=== PATIENT | male | born 1975 ===

== ENCOUNTER → 2020-06-26 15:00 | Outpatient (BNVA) | payer MEDICARE, MEDICAID, SELFPAY | PROVIDERS: PCP Hospitalist; Referring Provider Internal Medicine Medical Oncology; Visit Provider Internal Medicine | DX: J44.9 Chronic obstructive pulmonary disease, unspecified (principal); J98.4 Other disorders of lung; G47.33 Obstructive sleep apnea (adult) (pediatric); R06.89 Other abnormalities of breathing; E66.01 Morbid (severe) obesity due to excess calories | CPT/HCPCS: 99212 ==

== ENCOUNTER → 2020-07-17 19:36 | Outpatient (REF) | payer MEDICARE, MEDICAID, SELFPAY | LOC: HO.SL 19:36 | PROVIDERS: PCP Internal Medicine Medical Oncology; Visit Provider Internal Medicine | DX: G47.33 Obstructive sleep apnea (adult) (pediatric) (principal) | CPT/HCPCS: 95811 ==

== ENCOUNTER → 2020-07-24 14:19 | Outpatient (BNVA) | payer MEDICARE, MEDICAID, SELFPAY | PROVIDERS: PCP Internal Medicine Medical Oncology; Visit Provider Internal Medicine | DX: J44.9 Chronic obstructive pulmonary disease, unspecified (principal); J98.4 Other disorders of lung; E66.01 Morbid (severe) obesity due to excess calories; G47.33 Obstructive sleep apnea (adult) (pediatric); Z79.899 Other long term (current) drug therapy | CPT/HCPCS: 99212 ==

== ENCOUNTER → 2020-10-19 11:48 | Outpatient (BNVA) | payer MEDICARE, MEDICAID, SELFPAY | PROVIDERS: PCP Hospitalist; Visit Provider Internal Medicine | DX: E66.01 Morbid (severe) obesity due to excess calories (principal); G47.33 Obstructive sleep apnea (adult) (pediatric); J98.4 Other disorders of lung; J44.9 Chronic obstructive pulmonary disease, unspecified | CPT/HCPCS: 99212 ==

== ENCOUNTER → 2021-01-29 14:37 | Outpatient (BNVA) | payer MEDICARE, MEDICAID, SELFPAY | PROVIDERS: PCP Hospitalist; Visit Provider Internal Medicine | DX: J44.9 Chronic obstructive pulmonary disease, unspecified (principal); J98.4 Other disorders of lung; G47.33 Obstructive sleep apnea (adult) (pediatric); E66.01 Morbid (severe) obesity due to excess calories | CPT/HCPCS: 99212 ==

== ENCOUNTER → 2021-05-01 14:19 | Outpatient (BNVA) | payer MEDICARE, MEDICAID, SELFPAY | PROVIDERS: PCP Internal Medicine; Visit Provider Internal Medicine | DX: G47.33 Obstructive sleep apnea (adult) (pediatric) (principal); J44.9 Chronic obstructive pulmonary disease, unspecified; J98.4 Other disorders of lung; E66.01 Morbid (severe) obesity due to excess calories; Z88.8 Allergy status to other drugs, medicaments and biological substances; Z99.89 Dependence on other enabling machines and devices; Z79.4 Long term (current) use of insulin; Z79.899 Other long term (current) drug therapy | CPT/HCPCS: 99212 ==

== ENCOUNTER → 2021-05-16 13:49 | Outpatient (BNVA) | payer MEDICARE, MEDICAID, SELFPAY | PROVIDERS: PCP Internal Medicine; Visit Provider Nurse Practitioner Family | DX: E11.40 Type 2 diabetes mellitus with diabetic neuropathy, unspecified (principal); M19.071 Primary osteoarthritis, right ankle and foot | CPT/HCPCS: 99202 ==

== ENCOUNTER 2021-06-14 05:11 | Outpatient (REF) | payer MEDICARE, MEDICAID, SELFPAY ==
--- NOTE | ~2021-06-14 | XR_ITS ---
EXAMINATION: XR ANKLE, RIGHT CLINICAL INFORMATION: Pain COMPARISON: None TECHNIQUE: AP, lateral, and mortise views of the right ankle. FINDINGS: Significant soft tissue swelling about the ankle. Marked degenerative changes in the ankle joint more so in the tibiotalar joint where there is chronic bony deformity to the talar dome and loss of joint space both superiorly and along the abutting the subtalar joint and fibular articular surface. No acute bony destructive lesions. No fracture or dislocation. Visualized portion of the midfoot unremarkable. XR/XR ankle RT min 3V IMPRESSION: Significant soft tissue swelling about the ankle joint with chronic bony deformity and remodeling of the ankle joint.
== END 2021-06-14 05:12 | disposition home or self-care (01) ==
LOC: HO.HOSX 05:11
PROVIDERS: Visit Provider Physician Assistant
DX: M19.071 Primary osteoarthritis, right ankle and foot (principal)
CPT/HCPCS: 20600; 20605; 73610; 99202; J1100

== ENCOUNTER → 2021-09-13 09:43 | Outpatient (BNVA) | payer MEDICARE, MEDICAID, SELFPAY | PROVIDERS: PCP Internal Medicine; Visit Provider Physician Assistant | DX: M19.071 Primary osteoarthritis, right ankle and foot (principal) | CPT/HCPCS: 20600; 99212; J3300 ==

== ENCOUNTER → 2021-09-19 15:34 | Outpatient (BNVA) | payer MEDICARE, MEDICAID, SELFPAY | PROVIDERS: PCP Internal Medicine; Visit Provider Internal Medicine | DX: G47.33 Obstructive sleep apnea (adult) (pediatric) (principal); J44.9 Chronic obstructive pulmonary disease, unspecified; J98.4 Other disorders of lung; E66.01 Morbid (severe) obesity due to excess calories; Z68.41 Body mass index [BMI] 40.0-44.9, adult | CPT/HCPCS: 99212 ==

== ENCOUNTER → 2021-12-20 09:26 | Outpatient (BNVA) | payer MEDICARE, MEDICAID, SELFPAY | PROVIDERS: PCP Internal Medicine; Visit Provider Physician Assistant | DX: M19.071 Primary osteoarthritis, right ankle and foot (principal) | CPT/HCPCS: 20605; 99212; J1020 ==

== ENCOUNTER → 2022-02-11 13:28 | Outpatient (BNVA) | payer MEDICARE, MEDICAID, SELFPAY | PROVIDERS: PCP Internal Medicine; Visit Provider Internal Medicine | DX: G47.33 Obstructive sleep apnea (adult) (pediatric) (principal); E66.01 Morbid (severe) obesity due to excess calories; J44.9 Chronic obstructive pulmonary disease, unspecified; J98.4 Other disorders of lung | CPT/HCPCS: 99212 ==

== ENCOUNTER 2022-03-21 13:37 | Outpatient (REF) | payer MEDICARE, MEDICAID, SELFPAY ==
--- NOTE | ~2022-03-21 | XR_ITS ---
EXAMINATION: XR ANKLE, LEFT CLINICAL INFORMATION: Pain COMPARISON: None TECHNIQUE: AP, lateral, and mortise views of the left ankle. FINDINGS: Bone alignment is normal. No fracture or dislocation is seen. The ankle mortise is normal. There is a small calcaneal spur at the Achilles tendon insertion. Soft tissues are otherwise normal. XR/XR ankle LT min 3V IMPRESSION: Normal left ankle.
== END 2022-03-21 13:38 | disposition home or self-care (01) ==
LOC: HO.HOSX 13:37
PROVIDERS: Visit Provider Physician Assistant
DX: M19.071 Primary osteoarthritis, right ankle and foot (principal)
CPT/HCPCS: 20605; 73610; 99212; J1020

== ENCOUNTER 2022-05-16 13:41 | Outpatient (REF) | payer MEDICARE, MEDICAID, SELFPAY ==
--- NOTE | ~2022-05-16 | XR_ITS ---
EXAMINATION: XR CHEST CLINICAL INFORMATION: COPD. COMPARISON: None TECHNIQUE: 2 views of the chest were obtained. FINDINGS: No focal airspace consolidation. No pleural effusion or pneumothorax. Unremarkable cardiomediastinal silhouette. There appears to be bony prominence at the right costochondral junctions which could indicate sequela of prior injury. Mild degenerative disc disease throughout the thoracic spine. XR/XR chest 2V IMPRESSION: No acute cardiopulmonary findings. Bony prominence along the right costochondral junctions which could be the sequela of a remote injury.
== END 2022-05-16 13:42 | disposition home or self-care (01) ==
LOC: HO.XRAY 13:41
PROVIDERS: Absent Provider Internal Medicine; PCP Internal Medicine; Visit Provider Physician Assistant
DX: J98.4 Other disorders of lung (principal); J44.9 Chronic obstructive pulmonary disease, unspecified; J40 Bronchitis, not specified as acute or chronic; G47.33 Obstructive sleep apnea (adult) (pediatric); E66.01 Morbid (severe) obesity due to excess calories; M19.072 Primary osteoarthritis, left ankle and foot
CPT/HCPCS: 71046; 99212; J1040

== ENCOUNTER → 2022-06-13 10:42 | Outpatient (BNVA) | payer MEDICARE, MEDICAID, SELFPAY | PROVIDERS: PCP Internal Medicine; Visit Provider Internal Medicine | DX: J44.9 Chronic obstructive pulmonary disease, unspecified (principal); J98.4 Other disorders of lung; G47.33 Obstructive sleep apnea (adult) (pediatric); E66.01 Morbid (severe) obesity due to excess calories | CPT/HCPCS: 99212 ==

== ENCOUNTER → 2022-06-21 09:47 | Outpatient (BNVA) | payer MEDICARE, MEDICAID, SELFPAY | PROVIDERS: PCP Internal Medicine; Visit Provider Physician Assistant | DX: M19.071 Primary osteoarthritis, right ankle and foot (principal) | CPT/HCPCS: 20600; 99212; J1020 ==

== ENCOUNTER → 2022-09-19 12:48 | Outpatient (BNVA) | payer MEDICARE, MEDICAID, SELFPAY | PROVIDERS: PCP Internal Medicine; Visit Provider Physician Assistant | DX: M19.071 Primary osteoarthritis, right ankle and foot (principal); M54.2 Cervicalgia | CPT/HCPCS: 20600; 99212; J1040 ==

== ENCOUNTER 2022-10-15 11:00 | Outpatient (RCR) | payer MEDICARE, MEDICAID, SELFPAY ==
--- NOTE | 2022-09-26 11:53 | MHC.PT.EP ---
[facility] [place] Office [place] Office [place] Office [address] Jimmy Marques [address] [phone] F: [phone] F: [phone] F: [phone] F: [phone] Physical Therapy Plan of Care Date of Evaluation: Date of Surgery: n/a Diagnosis: cervical neck pain Assessment: Patient is a 47 year old male presenting to PT with complaints of pain in his neck. Pt reports onset of pain began about 6-8 months ago due to insidious onset. He presents today with impairments in pain, ROM, posture, UE strength. Pt's current occupation is disable due to T1DM, with baseline physical activities including ADLs, driving. 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 Clinical presentation today is most consistent with signs and sx associated with chronic neck pain and pt will benefit from skilled PT to address the following problems and impairments noted upon evaluation: pain, ROM, posture, UE strength. These problems limit the patient with the following functional activities: ADLs, driving. The prescribed treatment plan of care is medically necessary. Co-morbidities of severe T1DM, diabetic neuropathy, COPD, heart issues from diabetes, HTN were identified and taken into considerations of plan of care. Pt was educated on HEP, role of PT, prognosis, POC. Frequency and Duration: The patient will be seen 2 x week x 4 weeks Short Term Goals: Pt will demonstrate improved UE strength by 1/3 grade in 2 weeks. Pt will demonstrate improved cervical AROM with less reports of tightness in 2 weeks. Pt will demonstrate improved postural awareness by sitting with biomechanically correct posture without cues throughout session to improve overall postural function in 2 weeks. Custodial Goals: Pt will demonstrate improved NDI score by 5% in 4 weeks for improved functional mobility. Pt will demonstrate reports of improved ability to turn his neck when driving in 4 weeks for improved ability to drive. Treatment Plan: Modalities to reduce pain, spasms and effusion. Manual therapy to restore motion and function. Therapeutic exercise to improve strength and flexibility. Neuromuscular re-education for posture and balance. Therapeutic activities to return to functional activities of daily living. Electronically signed by: Luciana Estevez, PT, DPT, ATC Please sign and return to therapist. Thank you for your referral.
--- NOTE | 2022-11-01 08:11 | MHC.PT.DC ---
[facility] [place] Office [place] Office [place] Office [address] [phone] F: [phone] F: [phone] F: [phone] F: [phone] Physical Therapy Discharge Report Diagnosis: cervical neck pain Date of Surgery: n/a Date of Evaluation: 09/26/22 Date of Discharge: 11/01/22 Treatments to Date: 5 Cancellations to Date: 3 No Shows to Date: 0 Discharge Status: Patient Elected to Stop Discharge Summary: Pt called stating he would like to be d/c from skilled PT. Pt d/c per his request. Electronically signed by: Luciana Estevez, PT, DPT, ATC Please sign and return to therapist. Thank you for your referral.
== END 2022-11-01 08:13 | disposition home or self-care (01) ==
LOC: HO.PTCHIC 11:00
PROVIDERS: PCP Internal Medicine; Visit Provider Physician Assistant
DX: M54.2 Cervicalgia (principal)
CPT/HCPCS: 97110; 97163

== ENCOUNTER → 2022-10-21 11:06 | Outpatient (BNVA) | payer MEDICARE, MEDICAID, SELFPAY | PROVIDERS: PCP Internal Medicine; Visit Provider Internal Medicine | DX: G47.33 Obstructive sleep apnea (adult) (pediatric) (principal); J44.9 Chronic obstructive pulmonary disease, unspecified; J98.4 Other disorders of lung; E66.01 Morbid (severe) obesity due to excess calories; Z68.41 Body mass index [BMI] 40.0-44.9, adult; Z99.81 Dependence on supplemental oxygen; Z99.89 Dependence on other enabling machines and devices; Z79.4 Long term (current) use of insulin; Z79.899 Other long term (current) drug therapy | CPT/HCPCS: 99212 ==

== ENCOUNTER → 2022-11-28 13:31 | Outpatient (BNVA) | payer MEDICARE, MEDICAID, SELFPAY | PROVIDERS: PCP Internal Medicine; Visit Provider Physician Assistant | DX: M19.071 Primary osteoarthritis, right ankle and foot (principal); M19.072 Primary osteoarthritis, left ankle and foot | CPT/HCPCS: 20605; 99212; J1040 ==

== ENCOUNTER 2022-12-27 09:00 | Outpatient (RCR) | payer MEDICARE, MEDICAID, SELFPAY ==
--- NOTE | 2022-12-23 16:58 | MHC.PT.EP ---
[facility] [place] [facility] [place] Office [place] Office [address] Jimmy Marques [address] [phone] F: [phone] F: [phone] F: [phone] F: [phone] Physical Therapy Plan of Care Date of Evaluation: Date of Surgery: Diagnosis: OA left and right ankles Assessment: Patient is a 47 y.o. male with co-morbidities of DMT1, HTN, COPD, asthma who is referred to PT by BOGDAN Yung, with Dx of RIGHT ankle OA and LEFT ankle OA. His ankle/foot symptoms are complicated by diabetic neuropathy. Patient impairments include decreased sensation/proprioception in feet, poor balance, limited ROM, and weakness. Patient current functional limitations are difficulty standing, ambulating, bend/squat, walking outdoors, ascend/descend stairs. Patient will benefit from skilled PT to address aforementioned impairments and functional limitations to meet established goals. Frequency and Duration: The patient will be seen 2x/week for 4 weeks Short Term Goals: 2 weeks Patient demonstrates consistency and independence with HEP to self manage symptoms. Usp Goals: 4 weeks Patient presents with increased R ankle eversion 4+/5 to improve ankle stability walking outdoors. Patient presents with increased R ankle DF -5 degrees to normalize gait pattern. Treatment Plan: Modalities to reduce pain, spasms and effusion. Manual therapy to restore motion and function. Therapeutic exercise to improve strength and flexibility. Neuromuscular re-education for posture and balance. Therapeutic activities to return to functional activities of daily living. Electronically signed by: Daryl Pruitt, PT, DPT Please sign and return to therapist. Thank you for your referral.
--- NOTE | 2023-02-13 18:00 | MHC.PT.DC ---
[facility] [place] Office [place] Office [place] Office [address] Jimmy Marques [address] [phone] F: [phone] F: [phone] F: [phone] F: [phone] Physical Therapy Discharge Report Diagnosis: OA left and right ankles Date of Surgery: Date of Evaluation: 12/23/22 Date of Discharge: Treatments to Date: 2 Cancellations to Date: 4 No Shows to Date: Discharge Status: Patient Elected to Stop Discharge Summary: Patient was only seen for a PT evaluation and one treament. He cancelled a couple sessions due to dificulty with his diabetes management. He then called and requestied discontinuation of PT stating, My ankle is too far gone for therapy. Therefore, he is discharged at this time. Electronically signed by: Daryl Pruitt, PT, DPT Please sign and return to therapist. Thank you for your referral.
== END 2023-02-13 18:01 | disposition home or self-care (01) ==
LOC: HO.PT 09:00
PROVIDERS: PCP Internal Medicine; Visit Provider Physician Assistant
DX: M19.071 Primary osteoarthritis, right ankle and foot (principal); M19.072 Primary osteoarthritis, left ankle and foot
CPT/HCPCS: 97110; 97162

== ENCOUNTER → 2023-02-27 13:16 | Outpatient (BNVA) | payer MEDICARE, MEDICAID, SELFPAY | PROVIDERS: Visit Provider Physician Assistant | DX: M19.071 Primary osteoarthritis, right ankle and foot (principal); M19.072 Primary osteoarthritis, left ankle and foot | CPT/HCPCS: 20600; 20605; 99212; J1040 ==

== ENCOUNTER 2023-04-14 11:05 | Outpatient (AMB) | payer MEDICARE, MEDICAID, SELFPAY ==
[2023-04-14 11:11] VITALS: BP 136/78; PULSE 64; O2SAT 99; BMI 40.2
--- NOTE | 2023-04-14 11:11 | MHC.OFFVIS ---
Intake Vital Signs 04/14/23 11:11 Height 6 ft Weight 296 lb 8.348 oz BMI 40.2 BP 136/78 Blood Pressure Location Lt brachial Position Sitting Pulse 64 Pulse Source Pulse Oximeter Pulse Oximetry (%) 99 Oxygen Delivery Method Room Air Intake Visit Reasons: Obstructive sleep apnea Allergies codeine Allergy (Unknown, Verified 04/14/23 11:30) itching ibuprofen [IBUPROFEN] Allergy (Unknown, Verified 04/14/23 11:30) HIVES ketorolac Allergy (Unknown, Verified 04/14/23 11:30) swelling sumatriptan [From IMITREX] Allergy (Unknown, Verified 04/14/23 11:30) TACHYCARDIA bupropion [From Wellbutrin] Adverse Reaction (Severe, Verified 04/14/23 11:30) suicide thoughts prochlorperazine [From Compazine] Adverse Reaction (Unknown, Verified 04/14/23 11:30) Unknown Medication List - Last Reconciled 04/14/23 by Amish Smith MD amlodipine 10 mg PO DAILY [Ankle support brace As directed] Arnuity Ellipta 100 mcg/actuation (fluticasone furoate) 1 inh PO DAILY NS celecoxib 200 mg PO BID erythromycin 0 mg PO ferrous sulfate 325 mg PO DAILY flu vac qs 2019(4 yr up)CD(PF) mL IM furosemide 20 mg PO DAILY insulin lispro 1 sliding scale dose subcut USEASDIRECTD insulin lispro (Humalog KwikPen U-200 Insulin) subcut insulin syringe-needle U-100 As directed ipratropium-albuterol 0.5 mg-3 mg(2.5 mg base)/3 mL 3 mL inhalation QID 30 days lisinopril 40 mg PO DAILY omeprazole 40 mg PO BID pregabalin 150 mg PO TID rosuvastatin 40 mg PO DAILY Ventolin HFA 90 mcg/actuation (albuterol sulfate) 2 puffs inhalation Q4-6H PRN NS Do you need a note to return to daycare/school/sports/work: No HPI Obstructive sleep apnea HPI Details 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 HE USES NASAL AIR , IT IRRITATES THE SKIN OFF AND ON. HE IS A MOUTH BREATHER BUT CANNOT USE THE CHINSTRAP, ALSO HE CANNOT USE FULL FACE MASK DUE TO FEELING OF CLAUSTROPHOBIA. UNDER THE CIRCUMSTANCES HE IS DOING HIS BEST AND USES THE BIPAP EVERY NIGHT FOR AT LEAST 6 HOURS. HE DOES GET GOOD SLEEP. HE IS HOPING THAT 1 DAY HE WILL COME OFF THE BIPAP, HAS BEEN LOSING WEIGHT, SUCCESSFULLY BUT STILL IS IN RANGE OF MORBID OBESITY. BREATHING HAS BEEN OKAY WITHOUT ANY ACUTE EPISODES OF COUGH OR WHEEZING. CONTINUES TO USE ARNUITY ELLIPTA 1 INHALATION DAILY, AND HAS TO USE THE RESCUE INHALER( VENTOLIN ) ONLY ONCE IN A WHILE [facility] Medical History Bronchitis COPD (chronic obstructive pulmonary disease) Morbid obesity SABRINA (obstructive sleep apnea) Restrictive lung disease Social History Household Members: Significant Other Housing: House Alcohol intake: never Patient Tobacco Use Status: Never used Tobacco Current occupational status: disabled Current occupation: Lt handed Review of Systems Const All systems reviewed & are unremarkable except as noted in HPI and below Eyes Reports no additional complaints ENT Reports no additional complaints Card Denies chest pain, Denies irregular heart rhythm and Denies leg edema Resp Reports as per HPI GI Reports no additional complaints Reports no additional complaints Musc Reports back pain and Reports muscle weakness Skin/Breast Reports system reviewed and no additional complaints, except as documented Neuro Reports Neuro-related abnormal movements and Reports other (Case of posttraumatic paraparesis) Psych Reports no additional complaints Endo Reports other (Diabetes mellitus with labile blood sugars) Physical Exam Vital Signs: Last Vital Signs Pulse 64 04/14/23 11:11 BP 136/78 04/14/23 11:11 Pulse Ox 99 04/14/23 11:11 Oxygen Delivery Method Room Air 04/14/23 11:11 BMI result Body Mass Index 40.2 Const General: comfortable, no acute distress, alert and awake Orientation/consciousness: patient oriented x3 HEENT Head: Yes normal to inspection General nose exam: No nasal polyps present and No nasal discharge present Face and sinus: Yes sinuses nontender Mouth: oropharynx abnormals (Very crowded, Mallampati class 4) Throat: Yes posterior oropharynx normal Eyes General: appearance normal, both eyes and all related structures Neck Neck: Yes normal visual inspection, Yes no lymphadenopathy, Yes trachea midline, Yes no JVD and Yes other (Short and obese) Thyroid: Thyroid normal Chest Chest palpation & inspection: normal inspection of the chest, normal palpation of entire chest wall and no tenderness Resp Other: Percussion note resonant, breath sounds are distant and especially decreased over the bibasilar areas. No wheezes, rhonchi or crepitations are heard today. He has a relatively small lung volumes but both lungs are clear. Cardio Palpation: normal PMI Rate: regular rate Rhythm: regular rhythm Heart sounds: no gallops and no murmurs GI Palpation (GI): Soft to palpation, nontender, No hepatosplenomegaly present, no masses and Other GI palpation findings present (Abdomen is quite obese and protuberant) Auscultation: normal bowel sounds Back/Spine/Pelvis Thoracic/Lumbar Spine: thoracic and lumbar spine normal to inspection Skin General skin exam: no rashes or lesions noted Neuro General: patient oriented x3, No gait normal (Not able to walk,he uses quad cane in the house,motorized chair for outdoor) and no focal motor deficits Cranial nerves: Yes CN's II-XII intact bilaterally Extrem General: Yes normal to inspection, Yes no calf tenderness and Yes edema (Mild dependent edema of the legs) Psych Appearance: grossly normal and well kempt Speech and movement: Normal speech and movement present Results Reviewed Results Reviewed: COMPLIANCE DATA IS NOT AVAILABLE, WE GO BY HIS STATEMENT AND HE DOES USE IT EVERY NIGHT FOR AT LEAST 6 HOURS. Assessment & Plan Assessment & Plan (1) Morbid obesity: Comment: PATIENT IS WELL AWARE OF THIS PROBLEM . HE IS TRYING TO LOSE WEIGHT ON HIS OWN AND HAS LOST MORE WEIGHT SINCE THE LAST VISIT. HE IS QUITE DETERMINED TO KEEP ON CONTROLLING HIS DIET AND WALK DAILY . Code(s): E66.01 - Morbid (severe) obesity due to excess calories (2) Restrictive lung disease: Comment: SECONDARY TO MORBID OBESITY, ADVISED TO DO DEEP BREATHING EXERCISES AT LEAST 3 TIMES A DAY Code(s): J98.4 - Other disorders of lung (3) SABRINA (obstructive sleep apnea): Comment: KNOWN CASE OF SEVERE SABRINA . NEEDS BILEVEL SETTING ( BIPAP ) WITH PRESSURES OF 25/17 CMS, USING NASAL PILLOWS. HAS HIS OWN BIPAP MACHINE ( Ana Paula ) CLAIMS THAT HE IS USING HIS BIPAP FOR 5-6 HOURS PER NIGHT. COMPLIANCE ANALYSIS NOT AVAILABLE BUT HE CLAIMS TO BE FULLY COMPLIANT. HIS CURRENT SUPPLIER IS SALIMA MAY USE LORAZEPAM 0.5 MG AT BEDTIMEIF NEEDED BECAUSE OF HIS COMPLAINT OF DRYNESS OF THE MOUTH . HE IS ADVISED TO USE HUMIDIFICATION REGULARLY. * HE WILL BRING HIS BIPAP MACHINE HERE TO THE OFFICE 1 DAY IT SO THAT WE CAN CHECK IT OVER. Code(s): G47.33 - Obstructive sleep apnea (adult) (pediatric) (4) COPD (chronic obstructive pulmonary disease): Comment: ASTHMA/COPD ,STABLE TX : CONT. TO USE : ARNUITY , INHALOR , ONE INH DAILY . DUONEB USs QID ONLY PRN Code(s): J44.9 - Chronic obstructive pulmonary disease, unspecified Coding Level of Care Code Est Pt Level 4 (70435) Diagnoses Morbid obesity E66.01 Restrictive lung disease J98.4 SABRINA (obstructive sleep apnea) G47.33 COPD (chronic obstructive pulmonary disease) J44.9
== END 2023-04-14 11:43 | disposition home or self-care (01) ==
PROVIDERS: PCP Internal Medicine; Visit Provider Internal Medicine
DX: E66.01 Morbid (severe) obesity due to excess calories (principal); J98.4 Other disorders of lung; G47.33 Obstructive sleep apnea (adult) (pediatric); J44.9 Chronic obstructive pulmonary disease, unspecified
CPT/HCPCS: 99214

== ENCOUNTER → 2023-04-14 11:05 | Outpatient (BNVA) | payer MEDICARE, MEDICAID, SELFPAY | PROVIDERS: PCP Internal Medicine; Visit Provider Internal Medicine | DX: G47.33 Obstructive sleep apnea (adult) (pediatric) (principal); J98.4 Other disorders of lung; J44.9 Chronic obstructive pulmonary disease, unspecified; E66.01 Morbid (severe) obesity due to excess calories; Z68.41 Body mass index [BMI] 40.0-44.9, adult; Z99.89 Dependence on other enabling machines and devices | CPT/HCPCS: 99212 ==

== ENCOUNTER 2023-06-05 13:48 | Outpatient (AMB) | payer MEDICARE, MEDICAID, SELFPAY ==
--- NOTE | 2023-06-05 13:53 | MHC.OFFVIS ---
Intake Vital Signs 06/05/23 13:54 Height 6 ft Weight 296 lb BMI 40.1 Intake Visit Reasons: OV-right ankle injection-last 02/27/23 Intake Note: Shubham a 47 year old male presents today for a follow up of right ankle, last injection 02/27/23. Patient reports last injection helped until recently and is her to repeat injection. Allergies codeine Allergy (Unknown, Verified 06/05/23 13:56) itching ibuprofen [IBUPROFEN] Allergy (Unknown, Verified 06/05/23 13:56) HIVES ketorolac Allergy (Unknown, Verified 06/05/23 13:56) swelling sumatriptan [From IMITREX] Allergy (Unknown, Verified 06/05/23 13:56) TACHYCARDIA bupropion [From Wellbutrin] Adverse Reaction (Severe, Verified 06/05/23 13:56) suicide thoughts prochlorperazine [From Compazine] Adverse Reaction (Unknown, Verified 06/05/23 13:56) Unknown HPI OV-right ankle injection-last 02/27/23 HPI Details 47-year-old male who returns to the office today for a follow-up of right ankle pain. He states he has pain in his ankle but is doing well otherwise. He had his last injection on 02/27/23 which provided him relief until recently. He would like to repeat the injection. [facility] Medical History Bronchitis COPD (chronic obstructive pulmonary disease) Morbid obesity SABRINA (obstructive sleep apnea) Restrictive lung disease Social History Household Members: Significant Other Housing: House Alcohol intake: never Patient Tobacco Use Status: Never used Tobacco Current occupational status: disabled Current occupation: Lt handed Review of Systems Const All systems reviewed & are unremarkable except as noted in HPI and below Physical Exam Vital Signs: BMI result Body Mass Index 40.1 Extrem Other: Right ankle normal to inspection.? Significant tenderness over the medial and lateral joint of the ankle No tenderness over the syndesmosis. No significant swelling. No ankle instability. NVI .? Limited range of motion Office Procedures Joint Injection/Drain Joint Injection/Drain Primary Site: right ankle Prep: site was prepped using aseptic technique, ethochloride spray was applied and injection warnings given Injected: 80 mg of, DepoMedrol, with 1 mL of and 1% plain lidocaine Approach Used: anterolateral Procedure: The patient tolerated the procedure well and there was some relief with the local anesthesia Coding - Small Joint Procedure code (CPT) selection complete Results Reviewed Results Reviewed: 06/05/23 13:57 Lidocaine HCl 1 % [Xylocaine 1 %] 2 ml .ROUTE .STK-MED ONE methylPREDNISolone acetate [DEPO-MedroL] 40 mg .ROUTE .STK-MED ONE 06/05/23 13:59 methylPREDNISolone acetate [DEPO-MedroL] 80 mg .ROUTE .STK-MED ONE Assessment & Plan Assessment & Plan (1) Arthritis of right ankle: Code(s): M19.071 - Primary osteoarthritis, right ankle and foot (2) Osteoarthritis of left ankle: Code(s): M19.072 - Primary osteoarthritis, left ankle and foot Plan We discussed options today which include steroid injection. They did consent to move forward with the injection, which was tolerated well. I recommended rest, ice and elevation and OTC anti-inflammatories PRN for discomfort. We also discussed their diabetes and the effect the steroid can have on their blood glucose levels; therefore, they will continue to monitor these very closely over the next 72 hours. If there are any concerns, they should report to the ED immediately. Patient Instructions: Scribed for Frederick Urbina PA-C, by Alejo Huynh medical assistant per diem, on 06/05/2023 at 1:45 PM EST. Frederick Hernandes PA-C, have personally reviewed and agree with the information entered by the scribe. Coding Level of Care Code Est Pt Level 3 (69116) Diagnoses Arthritis of right ankle M19.071 Osteoarthritis of left ankle M19.072 CPT Codes Coding - - Small joint: 23788 - Small Joint ([id number])
[2023-06-05 13:54] VITALS: BMI 40.1
== END 2023-06-05 15:21 | disposition home or self-care (01) ==
PROVIDERS: PCP Internal Medicine; Visit Provider Physician Assistant
DX: M19.071 Primary osteoarthritis, right ankle and foot (principal); M19.072 Primary osteoarthritis, left ankle and foot
CPT/HCPCS: 20605; 99213

== ENCOUNTER → 2023-06-05 13:48 | Outpatient (BNVA) | payer MEDICARE, MEDICAID, SELFPAY | PROVIDERS: PCP Internal Medicine; Visit Provider Physician Assistant | DX: M19.071 Primary osteoarthritis, right ankle and foot (principal); M19.072 Primary osteoarthritis, left ankle and foot | CPT/HCPCS: 20605; 99212; J1020; J1040 ==

== ENCOUNTER 2023-09-08 12:14 | Outpatient (AMB) | payer MEDICARE, MEDICAID, SELFPAY ==
[2023-09-08 12:32] VITALS: BMI 40.1
--- NOTE | 2023-09-08 12:32 | A.OFFVIS_ITS ---
Intake Vital Signs 09/08/23 12:32 Height 6 ft Weight 296 lb BMI 40.1 Intake Visit Reasons: ov- RT ankle, last inj 02/27/23 Intake Note: Shubham a 47 year old male presents today for a follow up of right ankle, last injection 06/05/23. Patient reports last injection provided him with relief and is requesting to repeat injection. Allergies codeine Allergy (Unknown, Verified 09/08/23 12:39) itching ibuprofen [IBUPROFEN] Allergy (Unknown, Verified 09/08/23 12:39) HIVES ketorolac Allergy (Unknown, Verified 09/08/23 12:39) swelling sumatriptan [From IMITREX] Allergy (Unknown, Verified 09/08/23 12:39) TACHYCARDIA bupropion [From Wellbutrin] Adverse Reaction (Severe, Verified 09/08/23 12:39) suicide thoughts prochlorperazine [From Compazine] Adverse Reaction (Unknown, Verified 09/08/23 12:39) Unknown HPI ov- RT ankle, last inj 02/27/23 HPI Details 47-year-old male who returns to the [facility] today for a follow-up of right ankle pain. He has his last injection on 02/27/23 which provided him relief. He would like to repeat the injection. [facility] Medical History Bronchitis COPD (chronic obstructive pulmonary disease) Morbid obesity SABRINA (obstructive sleep apnea) Restrictive lung disease Social History Household Members: Significant Other Housing: House Alcohol intake: never Patient Tobacco Use Status: Never used Tobacco Current occupational status: disabled Current occupation: Lt handed Review of Systems Const All systems reviewed & are unremarkable except as noted in HPI and below Physical Exam Vital Signs: BMI result Body Mass Index 40.1 Extrem Other: Right ankle normal to inspection.? Significant tenderness over the medial and lateral joint of the ankle No tenderness over the syndesmosis. No significant swelling. No ankle instability. NVI .? Limited range of motion Office Procedures Joint Injection/Drain Joint Injection/Drain Primary Site: right ankle Prep: site was prepped using aseptic technique, ethochloride spray was applied and injection warnings given Injected: 80 mg of, DepoMedrol, with 1 mL of (2ml), 1% plain lidocaine and in the joint Approach Used: anterolateral Procedure: The patient tolerated the procedure well and there was some relief w ith the local anesthesia Coding - Small Joint Procedure code (CPT) selection complete Assessment & Plan Assessment & Plan (1) Arthritis of right ankle: Code(s): M19.071 - Primary osteoarthritis, right ankle and foot Plan We discussed options today which include steroid injection. They did consent to move forward with the right ankle injection, which was tolerated well. I recommended rest, ice and elevation and OTC anti-inflammatories PRN for discomfort. We also discussed their diabetes and the effect the steroid can have on their blood glucose levels; therefore, they will continue to monitor these very closely over the next 72 hours. If there are any concerns, they should report to the ED immediately. Patient Instructions: Scribed for Frederick Urbina PA-C, by Alejo Huynh medical information officer, on 09/08/2023 at 12:30 PM EST. I, Frederick Urbina PA-C, have personally reviewed and agree with the information entered by the scribe. Coding Level of Care Code Est Pt Level 3 (89054) Diagnoses Arthritis of right ankle M19.071 CPT Codes Coding - - Small joint: 57824 - Small Joint ([id number])
== END 2023-09-08 13:04 | disposition home or self-care (01) ==
PROVIDERS: PCP Internal Medicine; Visit Provider Physician Assistant
DX: M19.071 Primary osteoarthritis, right ankle and foot (principal)
CPT/HCPCS: 20605; 99213

== ENCOUNTER → 2023-09-08 12:14 | Outpatient (BNVA) | payer MEDICARE, MEDICAID, SELFPAY | PROVIDERS: PCP Internal Medicine; Visit Provider Physician Assistant | DX: M19.071 Primary osteoarthritis, right ankle and foot (principal) | CPT/HCPCS: 20605; 99212; J1040 ==

== ENCOUNTER 2023-09-09 16:17 | Outpatient (REF) | payer MEDICARE, MEDICAID, SELFPAY ==
--- NOTE | ~2023-09-09 | XR_ITS ---
EXAMINATION: XR CHEST CLINICAL INFORMATION: Bronchitis COMPARISON: 05/16/2022 TECHNIQUE: 2 views of the chest were obtained. FINDINGS: Heart and mediastinum within normal limits. No vascular congestion, consolidations or effusions. Unchanged appearance of healed displaced right posterior rib fractures with bridging calcifications and bilateral costochondral bony prominence, right greater than left. Degenerative changes thoracic spine. XR/XR chest 2V IMPRESSION: Stable chest. No acute cardiopulmonary disease.
[2023-09-09 16:26] LABS: MANUAL DIFF FLAG NO
[2023-09-09 16:53] LABS: Basophils Percent Auto 0.1 % (0-2); Hematocrit 42.1 % (42.0-52.0); Hemoglobin 14.2 g/dl (14.0-18.0); Imm Gran Abs Auto 0.08 X10*3/uL (0.00-0.03); Imm Gran Pct Auto 0.5 % (0.0-0.4); Lymphocytes Absolute Auto 1.9 X10*3/uL (1.2-4.9); Lymphocytes Percent Auto 12.8 % (20-40); Mean Corpuscular HGB Conc 33.7 g/dl (31.0-36.0); Mean Corpuscular Hemoglobin 30.6 pg (27.0-33.0); Mean Corpuscular Volume 90.7 fL (80.0-98.0); Mean Platelet Volume 9.4 fL (9.4-12.4); Monocytes Percent Auto 6.9 % (2-11); Neutrophils Absolute Auto 11.7 x10*3/uL (2.0-8.3); Neutrophils Percent Auto 79.7 % (45-73); Platelet Count 284 X10*3/uL (160-400); Red Blood Count 4.64 X10*6/uL (4.60-5.80); Red Cell Distribution Width 12.4 % (11.0-16.0); White Blood Count 14.7 X10*3/uL (4.8-10.8)
== END 2023-09-09 16:18 | disposition home or self-care (01) ==
LOC: HO.XRAY 16:17
PROVIDERS: PCP Internal Medicine; Visit Provider Internal Medicine
DX: J40 Bronchitis, not specified as acute or chronic (principal); J44.9 Chronic obstructive pulmonary disease, unspecified
CPT/HCPCS: 36415; 71046; 85025

== ENCOUNTER 2023-09-18 13:53 | Outpatient (AMB) | payer MEDICARE, MEDICAID, SELFPAY ==
[2023-09-18 13:59] VITALS: BP 120/70; PULSE 77; O2SAT 100; BMI 38.2
--- NOTE | 2023-09-18 13:59 | MHC.OFFVIS ---
Intake Vital Signs 09/18/23 13:59 Height 6 ft Weight 282 lb BMI 38.2 BP 120/70 Blood Pressure Location Lt brachial Position Sitting Pulse 77 Pulse Source Pulse Oximeter Pulse Oximetry (%) 100 Oxygen Delivery Method Room Air Intake Visit Reasons: Sick visit (adolescent/adult) Intake Note: pt is here for sick visit, and states his breathing is not good, so much phlegm this am, very green in color. 4 pills of doxy left, he cannot sit in recliner to sleep and use is bi-pap due to him opening his mouth when lying down. 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 Allergies codeine Allergy (Unknown, Verified 09/18/23 14:26) itching ibuprofen [IBUPROFEN] Allergy (Unknown, Verified 09/18/23 14:26) HIVES ketorolac Allergy (Unknown, Verified 09/18/23 14:26) swelling sumatriptan [From IMITREX] Allergy (Unknown, Verified 09/18/23 14:26) TACHYCARDIA bupropion [From Wellbutrin] Adverse Reaction (Severe, Verified 09/18/23 14:26) suicide thoughts prochlorperazine [From Compazine] Adverse Reaction (Unknown, Verified 09/18/23 14:26) Unknown Medication List - Last Reconciled 09/18/23 by Amish Smith MD albuterol sulfate 90 mcg/actuation 2 puffs inhalation Q4-6H PRN amlodipine 10 mg PO DAILY [Ankle support brace As directed] Arnuity Ellipta 100 mcg/actuation (fluticasone furoate) 1 inh PO DAILY NS azithromycin 500 mg PO DAILY 5 days celecoxib 200 mg PO BID doxycycline hyclate 100 mg PO BID 10 days erythromycin 0 mg PO ferrous sulfate 325 mg PO DAILY flu vac qs 2019(4 yr up)CD(PF) mL IM furosemide 20 mg PO DAILY insulin lispro 1 sliding scale dose subcut USEASDIRECTD insulin lispro (Humalog KwikPen U-200 Insulin) subcut insulin syringe-needle U-100 As directed ipratropium-albuterol 0.5 mg-3 mg(2.5 mg base)/3 mL 3 mL inhalation QID 30 days lisinopril 40 mg PO DAILY omeprazole 40 mg PO BID pregabalin 150 mg PO TID rosuvastatin 40 mg PO DAILY Do you need a note to return to daycare/school/sports/work: No PFSH Medical History Bronchitis COPD (chronic obstructive pulmonary disease) Restrictive lung disease SABRINA (obstructive sleep apnea) Morbid obesity Social History Household Members: Significant Other Housing: House Alcohol intake: never Patient Tobacco Use Status: Never used Tobacco Current occupational status: disabled Current occupation: Lt handed Physical Exam Vital Signs: Last Vital Signs Pulse 77 09/18/23 13:59 BP 120/70 09/18/23 13:59 Pulse Ox 100 09/18/23 13:59 Oxygen Delivery Method Room Air 09/18/23 13:59 BMI result Body Mass Index 38.2 Assessment & Plan Assessment & Plan Orders: Orders Sputum Cult + Gram stain 09/18/23 J40 - Bronchitis, not specified as acute or chronic, J44.9 - Chronic obstructive pulmonary disease, unspecified Coding
--- NOTE | 2023-09-18 14:01 | A.OFFVIS_ITS ---
Intake Vital Signs 09/18/23 13:59 Height 6 ft Weight 282 lb BMI 38.2 BP 120/70 Blood Pressure Location Lt brachial Position Sitting Pulse 77 Pulse Source Pulse Oximeter Pulse Oximetry (%) 100 Oxygen Delivery Method Room Air Intake Visit Reasons: Sick visit (adolescent/adult) Allergies codeine Allergy (Unknown, Verified 09/18/23 14:26) itching ibuprofen [IBUPROFEN] Allergy (Unknown, Verified 09/18/23 14:26) HIVES ketorolac Allergy (Unknown, Verified 09/18/23 14:26) swelling sumatriptan [From IMITREX] Allergy (Unknown, Verified 09/18/23 14:26) TACHYCARDIA bupropion [From Wellbutrin] Adverse Reaction (Severe, Verified 09/18/23 14:26) suicide thoughts prochlorperazine [From Compazine] Adverse Reaction (Unknown, Verified 09/18/23 14:26) Unknown Medication List - Last Reconciled 09/18/23 by Amish Smith MD albuterol sulfate 90 mcg/actuation 2 puffs inhalation Q4-6H PRN amlodipine 10 mg PO DAILY [Ankle support brace As directed] Arnuity Ellipta 100 mcg/actuation (fluticasone furoate) 1 inh PO DAILY NS azithromycin 500 mg PO DAILY 5 days celecoxib 200 mg PO BID doxycycline hyclate 100 mg PO BID 10 days erythromycin 0 mg PO ferrous sulfate 325 mg PO DAILY flu vac qs 2019(4 yr up)CD(PF) mL IM furosemide 20 mg PO DAILY insulin lispro 1 sliding scale dose subcut USEASDIRECTD insulin lispro (Humalog KwikPen U-200 Insulin) subcut insulin syringe-needle U-100 As directed ipratropium-albuterol 0.5 mg-3 mg(2.5 mg base)/3 mL 3 mL inhalation QID 30 days lisinopril 40 mg PO DAILY omeprazole 40 mg PO BID pregabalin 150 mg PO TID rosuvastatin 40 mg PO DAILY Do you need a note to return to daycare/school/sports/work: No HPI Sick visit (adolescent/adult) HPI Details Shubham is 48 years old very pleasant gentleman, a case of chronic bronchial asthma/COPD. He is using Arnuity Ellipta 1 inhalation daily, DuoNeb updraft 3 times a day. Since about 2 weeks he is having symptoms of acute bronchitis, and exacerbation of COPD. He was initially treated with a course of prednisone for 7 days, When he called on telephone that he was having very frequent cough especially in the morning and was expectorates eating greenish to yellow phlegm, he was treated empirically with doxycycline 100 b.i.d.. This gentleman is on erythromycin 500 mg 3 to 4 times a day for gastroparesis for many years. He denies fever or. Chills or any chest pain Chest x-ray on was negative for any pneumonia. HE HAS BEEN CALLING US IN THE LAST 2 DAYS THAT HE IS WORRIED ABOUT LOT OF EXPECTORATION IN THE MORNING WITH GREENISH PHLEGM. SO WAS ADVISED TO COME IN FOR A CHECKUP. [facility] Medical History Bronchitis COPD (chronic obstructive pulmonary disease) Restrictive lung disease SABRINA (obstructive sleep apnea) Morbid obesity Social History Household Members: Significant Other Housing: House Alcohol intake: never Patient Tobacco Use Status: Never used Tobacco Current occupational status: disabled Current occupation: Lt handed Review of Systems Const All systems reviewed & are unremarkable except as noted in HPI and below Eyes Reports no additional complaints ENT Reports no additional complaints Card Denies chest pain, Denies irregular heart rhythm and Denies leg edema Resp Reports as per HPI GI Reports no additional complaints Reports no additional complaints Musc Reports back pain and Reports muscle weakness Skin/Breast Reports system reviewed and no additional complaints, except as documented Neuro Reports Neuro-related abnormal movements and Reports other (Case of posttraum atic paraparesis) Psych Reports no additional complaints Endo Reports other (Diabetes mellitus with labile blood sugars) Physical Exam Const General: comfortable, no acute distress, alert and awake Orientation/consciousness: patient oriented x3 HEENT Head: Yes normal to inspection General nose exam: No nasal polyps present and No nasal discharge present Face and sinus: Yes sinuses nontender Mouth: oropharynx abnormals (Very crowded, Mallampati class 4) Throat: Yes posterior oropharynx normal Eyes General: appearance normal, both eyes and all related structures Neck Neck: Yes normal visual inspection, Yes no lymphadenopathy, Yes trachea midline, Yes no JVD and Yes other (Short and obese) Thyroid: Thyroid normal Chest Chest palpation & inspection: normal inspection of the chest, normal palpation of entire chest wall and no tenderness Resp Other: Percussion note resonant, breath sounds are distant and especially decreased over the bibasilar areas. No wheezes, rhonchi or crepitations are heard today. He has a relatively small lung volumes but both lungs are clear. Cardio Palpation: normal PMI Rate: regular rate Rhythm: regular rhythm Heart sounds: no gallops and no murmurs GI Palpation (GI): Soft to palpation, nontender, No hepatosplenomegaly present, no masses and Other GI palpation findings present (Abdomen is quite obese and protuberant) Auscultation: normal bowel sounds Back/Spine/Pelvis Thoracic/Lumbar Spine: thoracic and lumbar spine normal to inspection Skin General skin exam: no rashes or lesions noted Neuro General: patient oriented x3, No gait normal (Not able to walk,he uses quad cane in the house,motorized chair for outdoor) and no focal motor deficits Cranial nerves: Yes CN's II-XII intact bilaterally Extrem General: Yes normal to inspection, Yes no calf tenderness and Yes edema (Mild dependent edema of the legs) Psych Appearance: grossly normal and well kempt Speech and movement: Normal speech and movement present Assessment & Plan Assessment & Plan (1) Bronchitis: Comment: At present he has symptoms of acute bronchitis/ upper respiratory infection, nonspecific. Chest x-ray was negative . Still having extra amount of cough and expectoration of greenish phlegm in the mornings. Code(s): J40 - Bronchitis, not specified as acute or chronic Plan: Advised to DC using doxycycline as of now. Will get a sputum Gram stain and culture 4 days later. Then decide if he needs an other antibiotic are not. In the meantime I have reassured him and advised him not to worry about the greenish phlegm. (2) COPD (chronic obstructive pulmonary disease): Comment: ASTHMA/COPD ,STABLE Code(s): J44.9 - Chronic obstructive pulmonary disease, unspecified Plan: TX : CONT. TO USE : ARNUITY , INHALOR , ONE INH DAILY . DUONEB USs QID ONLY PRN , may use up to 3 times a day . (3) SABRINA (obstructive sleep apnea): Comment: KNOWN CASE OF SEVERE SABRINA . NEEDS BILEVEL SETTING ( BIPAP ) WITH PRESSURES OF 25/17 CMS, USING NASAL PILLOWS. HAS HIS OWN BIPAP MACHINE ( [employer] ) CLAIMS THAT HE IS USING HIS BIPAP FOR 5-6 HOURS PER NIGHT. COMPLIANCE ANALYSIS NOT AVAILABLE BUT HE CLAIMS TO BE FULLY COMPLIANT. HIS CURRENT SUPPLIER IS [employer]IM[employer] MAY USE LORAZEPAM 0.5 MG AT BEDTIMEIF NEEDED Code(s): G47.33 - Obstructive sleep apnea (adult) (pediatric) Plan: as above Orders: Orders Sputum Cult + Gram stain Today J40 - Bronchitis, not specified as acute or chronic, J44.9 - Chronic obstructive pulmonary disease, unspecified Coding Level of Care Code Est Pt Level 3 (89479) Diagnoses Bronchitis J40 COPD (chronic obstructive pulmonary disease) J44.9 SABRINA (obstructive sleep apnea) G47.33
== END 2023-09-18 14:21 | disposition home or self-care (01) ==
PROVIDERS: PCP Internal Medicine; Visit Provider Internal Medicine
DX: J40 Bronchitis, not specified as acute or chronic (principal); J44.9 Chronic obstructive pulmonary disease, unspecified; G47.33 Obstructive sleep apnea (adult) (pediatric)
CPT/HCPCS: 99213

== ENCOUNTER → 2023-09-18 13:53 | Outpatient (BNVA) | payer MEDICARE, MEDICAID, SELFPAY | PROVIDERS: PCP Internal Medicine; Visit Provider Internal Medicine | DX: J44.9 Chronic obstructive pulmonary disease, unspecified (principal); J40 Bronchitis, not specified as acute or chronic; G47.33 Obstructive sleep apnea (adult) (pediatric) | CPT/HCPCS: 99212 ==

== ENCOUNTER 2023-10-20 10:52 | Outpatient (AMB) | payer MEDICARE, MEDICAID, SELFPAY ==
[2023-10-20 11:12] VITALS: BP 122/82; PULSE 60; O2SAT 99; BMI 38.4
--- NOTE | 2023-10-20 11:12 | MHC.OFFVIS ---
Intake Vital Signs 10/20/23 11:12 Height 6 ft Weight 283 lb 4.704 oz BMI 38.4 BP 122/82 Blood Pressure Location Lt brachial Position Sitting Pulse 60 Pulse Source Pulse Oximeter Pulse Oximetry (%) 99 Oxygen Delivery Method Room Air Intake Visit Reasons: Obstructive sleep apnea Intake Note: pt is here for follow up and states he would like a new sleep study for a replacement machine, he is finally over the URI. and after sleep study he would like to know if he can go under for a colonoscopy. 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 Allergies codeine Allergy (Unknown, Verified 10/20/23 11:45) itching ibuprofen [IBUPROFEN] Allergy (Unknown, Verified 10/20/23 11:45) HIVES ketorolac Allergy (Unknown, Verified 10/20/23 11:45) swelling sumatriptan [From IMITREX] Allergy (Unknown, Verified 10/20/23 11:45) TACHYCARDIA bupropion [From Wellbutrin] Adverse Reaction (Severe, Verified 10/20/23 11:45) suicide thoughts prochlorperazine [From Compazine] Adverse Reaction (Unknown, Verified 10/20/23 11:45) Unknown Medication List - Last Reconciled 10/20/23 by Amish Smith MD albuterol sulfate 90 mcg/actuation 2 puffs inhalation Q4-6H PRN [Ankle support brace As directed] Arnuity Ellipta 100 mcg/actuation (fluticasone furoate) 1 inh PO DAILY NS celecoxib 200 mg PO BID erythromycin 0 mg PO ferrous sulfate 325 mg PO DAILY flu vac qs 2019(4 yr up)CD(PF) mL IM furosemide 20 mg PO DAILY insulin lispro 1 sliding scale dose subcut USEASDIRECTD insulin lispro (Humalog KwikPen U-200 Insulin) subcut insulin syringe-needle U-100 As directed ipratropium-albuterol 0.5 mg-3 mg(2.5 mg base)/3 mL 3 mL inhalation QID 30 days lansoprazole 30 mg PO DAILY lisinopril 20 mg PO DAILY pregabalin 150 mg PO TID rosuvastatin 40 mg PO DAILY spironolactone 25 mg PO DAILY Do you need a note to return to daycare/school/sports/work: No HPI Obstructive sleep apnea HPI Details 48 years old gentleman, comes for follow-up, His acute respiratory symptoms have finally resolved. He has bronchial asthma which is now under good control with his regular respiratory regimen. He does use albuterol in the nebulizer once or twice a day at home. And when he goes outdoors he uses Ventolin Q 6 hours p.r.n.. He denies any extra cough or expectoration the days. He does not need to use oxygen. And he can walk around without much shortness of breath. He is also grossly obese but over the past few years he has lost close to 100 lb of weight. He always used to be in a motorized chair but now he walks around without any problem. He has obstructive sleep apnea, due to his morbid obesity , last sleep study in the sleep lab was in 2019, And he has been on BiPAP with pressure setting of 25/17 , using every night. He owns his Ana Paula model, and it has not been transmitting any data for compliance. He would like to have a new CPAP machine. [facility] Medical History (Updated 10/20/23 @ 11:55 by Amish Smith MD) Obesity (BMI 35.0-39.9 without comorbidity) Bronchitis COPD (chronic obstructive pulmonary disease) Restrictive lung disease SABRINA (obstructive sleep apnea) Morbid obesity Social History Household Members: Significant Other Housing: House Alcohol intake: never Patient Tobacco Use Status: Never used Tobacco Current occupational status: disabled Current occupation: Lt handed Review of Systems Const All systems reviewed & are unremarkable except as noted in HPI and below Eyes Reports no additional complaints ENT Reports no additional complaints Card Denies chest pain, Denies irregular heart rhythm and Denies leg edema Resp Reports as per HPI GI Reports no additional complaints Reports no additional complaints Musc Reports back pain and Reports muscle weakness Skin/Breast Reports system reviewed and no additional complaints, except as documented Neuro Reports Neuro-related abnormal movements and Reports other (Case of posttraumatic paraparesis) Psych Reports no additional complaints Endo Reports other (Diabetes mellitus with labile blood sugars) Physical Exam Vital Signs: Last Vital Signs Pulse 60 10/20/23 11:12 BP 122/82 10/20/23 11:12 Pulse Ox 99 10/20/23 11:12 Oxygen Delivery Method Room Air 10/20/23 11:12 BMI result Body Mass Index 38.4 Assessment & Plan Assessment & Plan (1) Obesity (BMI 35.0-39.9 without comorbidity): Comment: He has history of morbid obesity but over the last few years he has gradually lost more than 100 lb of weight. He is a known case of gastro paresis, and is not able to eat large portions of food at a time. He continues to lose weight. Code(s): E66.9 - Obesity, unspecified Plan: Commended for controlling his diet and losing weight (2) COPD (chronic obstructive pulmonary disease): Comment: ASTHMA/COPD ,. IMPROVED AND STABLE. RECENT ACUTE EXACERBATION DUE TO ACUTE BRONCHITIS HAS RESOLVED. Code(s): J44.9 - Chronic obstructive pulmonary disease, unspecified Plan: CONTINUE THE PRESENT REGIMEN WHICH INCLUDES. ARNUITY ELLIPTA 100 MCG 1 INHALATION DAILY. IPRATROPIUM-ALBUTEROL 3 MALE IN THE NEBULIZER Q I.D. VENTOLIN 2 PUFFS Q 4-6 HOURS P.R.N. WHEN OUTDOORS. (3) Restrictive lung disease: Comment: SECONDARY TO MORBID OBESITY, Code(s): J98.4 - Other disorders of lung Plan: ADVISED TO KEEP ON DOING DEEP BREATHING EXERCISES AT LEAST 3 TIMES A DAY (4) SABRINA (obstructive sleep apnea): Comment: KNOWN CASE OF SEVERE SABRINA . NEEDS BILEVEL SETTING ( BIPAP ) WITH PRESSURES OF 25/17 CMS, USING NASAL PILLOWS. HAS HIS OWN BIPAP MACHINE ( Ana Paula ) WHICH IS OLD AND NOT TRANSMITTING ANY COMPLIANCE DATA. HE CLAIMS THAT HE DOES USE THE BIPAP EVERY NIGHT AT LEAST FOR 5-6 HOURS PER NIGHT. COMPLIANCE ANALYSIS NOT AVAILABLE BUT HE CLAIMS TO BE FULLY COMPLIANT. HIS CURRENT SUPPLIER IS RECCY Code(s): G47.33 - Obstructive sleep apnea (adult) (pediatric) Plan: ENCOURAGED TO KEEP ON USING CPAP EVERY NIGHT FOR AT LEAST 6 HOURS PER NIGHT. MAY USE LORAZEPAM 0.5 MG AT BEDTIMEIF NEEDED * HE HAS LOST SIGNIFICANT AMOUNT OF WEIGHT, I THINK HE NEEDS TO HAVE RE SETTING OF THE PRESSURE . AND WOULD ALSO LIKE TO CONFIRM IF HE STILL NEEDS TO USE THE BIPAP. FOR THIS THE I WILL TRY TO SCHEDULE HIS POLYSOMNOGRAM STUDY IN THE SLEEP LAB. Coding Level of Care Code Est Pt Level 4 (42194) Diagnoses Obesity (BMI 35.0-39.9 without comorbidity) E66.9 COPD (chronic obstructive pulmonary disease) J44.9 Restrictive lung disease J98.4 SABRINA (obstructive sleep apnea) G47.33
== END 2023-10-20 11:47 | disposition home or self-care (01) ==
PROVIDERS: PCP Internal Medicine; Visit Provider Internal Medicine
DX: E66.9 Obesity, unspecified (principal); J44.9 Chronic obstructive pulmonary disease, unspecified; J98.4 Other disorders of lung; G47.33 Obstructive sleep apnea (adult) (pediatric)
CPT/HCPCS: 99214

== ENCOUNTER → 2023-10-20 10:52 | Outpatient (BNVA) | payer MEDICARE, MEDICAID, SELFPAY | PROVIDERS: PCP Internal Medicine; Visit Provider Internal Medicine | DX: G47.33 Obstructive sleep apnea (adult) (pediatric) (principal); J44.9 Chronic obstructive pulmonary disease, unspecified; J98.4 Other disorders of lung; E66.9 Obesity, unspecified; Z68.38 Body mass index [BMI] 38.0-38.9, adult | CPT/HCPCS: 99212 ==

== ENCOUNTER 2023-10-22 11:32 | Outpatient (AMB) | payer MEDICARE, MEDICAID, SELFPAY ==
--- NOTE | 2023-10-22 11:40 | A.OFFVIS_ITS ---
Intake Intake Visit Reasons: ov- rt ankle discuss medication Allergies codeine Allergy (Unknown, Verified 10/20/23 11:45) itching ibuprofen [IBUPROFEN] Allergy (Unknown, Verified 10/20/23 11:45) HIVES ketorolac Allergy (Unknown, Verified 10/20/23 11:45) swelling sumatriptan [From IMITREX] Allergy (Unknown, Verified 10/20/23 11:45) TACHYCARDIA bupropion [From Wellbutrin] Adverse Reaction (Severe, Verified 10/20/23 11:45) suicide thoughts prochlorperazine [From Compazine] Adverse Reaction (Unknown, Verified 10/20/23 11:45) Unknown HPI ov- rt ankle discuss medication HPI Details 48 yo male with right ankle OA- he stat es there is worse pain in the morning. He states as he walks and stands he feels the ankle is more unstable. He states there is swelling which is interfering with his neuropathy. [facility] Medical History (Updated 10/22/23 @ 11:44 by Frederick Urbina PA-C) Obesity (BMI 35.0-39.9 without comorbidity) Bronchitis COPD (chronic obstructive pulmonary disease) Restrictive lung disease SABRINA (obstructive sleep apnea) Morbid obesity Social History Household Members: Significant Other Housing: House Alcohol intake: never Patient Tobacco Use Status: Never used Tobacco Current occupational status: disabled Current occupation: Lt handed Review of Systems Const All systems reviewed & are unremarkable except as noted in HPI and below Physical Exam Resp Effort & Inspection: normal respiratory effort and able to speak in complete sentences Assessment & Plan Assessment & Plan (1) Osteoarthritis of ankle, right: Code(s): M19.071 - Primary osteoarthritis, right ankle and foot Qualifiers: Osteoarthritis type: primary Qualified Code(s): M19.071 - Primary osteoarthritis, right ankle and foot Plan: We discussed options which include continued Celebrex and introducing a compound cream. I do not recommend increasing the dose of the celebrex as he has some kidney issues and this may interfere with the function. He is interested in the compound cream which we will order and he will see me back as planned in November for right ankle injection. Telehealth Telehealth Location of provider rendering services: practice address Location of patient: address on file Patient Identification confirmed using: Name, : Yes Telehealth method: voice only Patient verbally consented to treatment: Yes Patient verbally consented to billing insurance company: Yes Patient informed of any privacy concerns related to visit: Yes Minutes spent on Phone/Video with Pt.: 15 Coding Level of Care Code Tele Est Pt Level 3 (13548) Diagnoses Primary osteoarthritis of right ankle M19.071 Osteoarthritis type: primary
== END 2023-10-22 11:48 | disposition home or self-care (01) ==
LOC: HO.HOS 11:33
PROVIDERS: PCP Internal Medicine; Visit Provider Physician Assistant
DX: M19.071 Primary osteoarthritis, right ankle and foot (principal)
CPT/HCPCS: 99442

== ENCOUNTER → 2023-10-22 11:32 | Outpatient (BNVA) | payer MEDICARE, MEDICAID, SELFPAY | PROVIDERS: PCP Internal Medicine; Visit Provider Physician Assistant ==

== ENCOUNTER → 2023-11-03 19:30 | Outpatient (BNV) | payer MEDICARE, MEDICAID, SELFPAY | PROVIDERS: PCP Internal Medicine; Visit Provider Internal Medicine | DX: G47.33 Obstructive sleep apnea (adult) (pediatric) (principal) | CPT/HCPCS: 95810 ==

== ENCOUNTER → 2023-11-03 19:30 | Outpatient (REF) | payer MEDICARE, MEDICAID, SELFPAY | LOC: HO.SL 19:30 | PROVIDERS: PCP Internal Medicine; Visit Provider Internal Medicine | DX: G47.33 Obstructive sleep apnea (adult) (pediatric) (principal); R06.83 Snoring; E66.9 Obesity, unspecified; J44.9 Chronic obstructive pulmonary disease, unspecified; Z79.4 Long term (current) use of insulin; Z79.899 Other long term (current) drug therapy | CPT/HCPCS: 95810 ==

== ENCOUNTER 2023-12-12 12:44 | Outpatient (AMB) | payer MEDICARE, MEDICAID, SELFPAY ==
[2023-12-12 12:47] VITALS: BMI 38.4
--- NOTE | 2023-12-12 12:47 | MHC.OFFVIS ---
Vital Signs 12/12/23 12:47 Height 6 ft Weight 283 lb BMI 38.4 Intake Visit Reasons: OV-right ankle injection-last 09/08/23 Intake Note: Shubham is a 48 year old male who presents for his Right ankle injection. Patient reports his last injection was on 09/08/2023 and it gave him good relief. Allergies codeine Allergy (Unknown, Verified 12/12/23 12:55) itching ibuprofen [IBUPROFEN] Allergy (Unknown, Verified 12/12/23 12:55) HIVES ketorolac Allergy (Unknown, Verified 12/12/23 12:55) swelling sumatriptan [From IMITREX] Allergy (Unknown, Verified 12/12/23 12:55) TACHYCARDIA bupropion [From Wellbutrin] Adverse Reaction (Severe, Verified 12/12/23 12:55) suicide thoughts prochlorperazine [From Compazine] Adverse Reaction (Unknown, Verified 12/12/23 12:55) Unknown HPI HPI OV-right ankle injection-last 09/08/23: Details: 48-year-old male who returns to the office today for a follow-up of right ankle pain. He had his last injection on 09/08/23 which provided him good relief. He would like to repeat the injection. [facility] Medical History Obesity (BMI 35.0-39.9 without comorbidity) Bronchitis COPD (chronic obstructive pulmonary disease) Restrictive lung disease SABRINA (obstructive sleep apnea) Morbid obesity Social History Household Members: Significant Other Housing: House Alcohol intake: never Patient Tobacco Use Status: Never used Tobacco Current occupational status: disabled Current occupation: Lt handed Review of Systems Const All systems reviewed & are unremarkable except as noted in HPI and below Physical Exam Vital Signs: BMI result Body Mass Index 38.4 Extrem Other: Right ankle normal to inspection.? Significant tenderness over the medial and lateral joint of the ankle No tenderness over the syndesmosis. No significant swelling. No ankle instability. NVI .? Limited range of motion Office Procedures Joint Injection/Drain Joint Injection/Drain Primary Site: right ankle Prep: site was prepped using aseptic technique, ethochloride spray was applied and injection warnings given Injected: 80 mg of, DepoMedrol, with 1 mL of, 1% plain lidocaine and in the joint Approach Used: anteromedial Procedure: The patient tolerated the procedure well and there was some relief with the local anesthesia Coding - Small Joint Procedure code (CPT) selection complete Assessment & Plan Assessment & Plan (1) Osteoarthritis of ankle, right: Code(s): M19.071 - Primary osteoarthritis, right ankle and foot Category: Medical Qualifiers: Osteoarthritis type: primary Qualified Code(s): M19.071 - Primary osteoarthritis, right ankle and foot Plan We discussed options today which include steroid injection. They did consent to move forward with the right ankle injection, which was tolerated well. I recommended rest, ice and elevation and OTC anti-inflammatories PRN for discomfort. If symptoms persist or worsens over the next 6-8 weeks, patient will contact the office, otherwise follow-up as needed. We also discussed their diabetes and the effect the steroid can have on thier blood glucose levels; therefore, they will continue to monitor these very closely over the next 72 hours Patient Instructions: Scribed for Frederick Urbina PA-C, by Alejo Huynh medical manager, on 12/12/2023 at 1:00 PM EST. Frederick Hernandes PA-C, have personally reviewed and agree with the information entered by the scribe.
== END 2023-12-12 13:41 | disposition home or self-care (01) ==
PROVIDERS: PCP Internal Medicine; Visit Provider Physician Assistant
DX: M19.071 Primary osteoarthritis, right ankle and foot (principal)
CPT/HCPCS: 20605; 99213

== ENCOUNTER → 2023-12-12 12:44 | Outpatient (BNVA) | payer MEDICARE, MEDICAID, SELFPAY | PROVIDERS: PCP Internal Medicine; Visit Provider Physician Assistant | DX: M19.071 Primary osteoarthritis, right ankle and foot (principal) | CPT/HCPCS: 20605; 99212; J1010 ==

== ENCOUNTER 2024-01-12 11:03 | Outpatient (AMB) | payer MEDICARE, MEDICAID, SELFPAY ==
[2024-01-12 11:13] VITALS: BP 142/68; PULSE 98; O2SAT 98; BMI 37.7
--- NOTE | 2024-01-12 11:13 | MHC.OFFVIS ---
Vital Signs 01/12/24 11:13 Height 6 ft Weight 277 lb 12.519 oz BMI 37.7 BP 142/68 H Blood Pressure Location Lt brachial Position Sitting Pulse 98 Pulse Source Pulse Oximeter Pulse Oximetry (%) 98 Oxygen Delivery Method Room Air Intake Visit Reasons: Obstructive sleep apnea Chemical Manager Required: No Electron Microprobe Operator: Electron Microprobe Operator offered & declined Accompanied by: Spouse Allergies codeine Allergy (Unknown, Verified 01/12/24 11:24) itching ibuprofen [IBUPROFEN] Allergy (Unknown, Verified 01/12/24 11:24) HIVES ketorolac Allergy (Unknown, Verified 01/12/24 11:24) swelling sumatriptan [From IMITREX] Allergy (Unknown, Verified 01/12/24 11:24) TACHYCARDIA bupropion [From Wellbutrin] Adverse Reaction (Severe, Verified 01/12/24 11:24) suicide thoughts prochlorperazine [From Compazine] Adverse Reaction (Unknown, Verified 01/12/24 11:24) Unknown Medication List - Last Reconciled 01/12/24 by Amish Smith MD albuterol sulfate 90 mcg/actuation 2 puffs inhalation Q4-6H PRN amlodipine 7.5 mg PO DAILY [Ankle support brace As directed] Arnuity Ellipta 100 mcg/actuation (fluticasone furoate) 1 inh inhalation DAILY NS celecoxib 200 mg PO BID erythromycin 125 mg PO 6XD ferrous sulfate 325 mg PO DAILY flu vac qs 2019(4 yr up)CD(PF) mL IM furosemide 20 mg PO DAILY insulin lispro 1 sliding scale dose subcut USEASDIRECTD insulin lispro (Humalog KwikPen U-200 Insulin) subcut insulin syringe-needle U-100 As directed ipratropium-albuterol 0.5 mg-3 mg(2.5 mg base)/3 mL 3 mL inhalation QID 30 days lansoprazole 30 mg PO DAILY lisinopril 20 mg PO DAILY pregabalin 150 mg PO TID rosuvastatin 40 mg PO DAILY spironolactone 25 mg PO DAILY Do you need a note to return to daycare/school/sports/work: No HPI HPI Obstructive sleep apnea: Details: CHRISTOFER SAUCEDO 48 YEARS 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 HE IS VERY HAPPY WITH HIS NEW CPAP DEVICE, HE USES THE NASAL PILLOWS , CAN NOT USE THE FULLFACE MASK BECAUSE HE IS CLAUSTROPHOBIC. HE IS HAPPY WITH THIS SET UP. HE HAS LOST ABOUT. 6 LB OF WEIGHT BREATHING HAS BEEN GOOD, HE HARDLY NEEDS TO USE THE RESCUE INHALER, BUT DOES USE ARNUITY EVERY DAY. [facility] Medical History Obesity (BMI 35.0-39.9 without comorbidity) Bronchitis COPD (chronic obstructive pulmonary disease) Restrictive lung disease SABRINA (obstructive sleep apnea) Morbid obesity Social History Household Members: Significant Other Housing: House Alcohol intake: never Patient Tobacco Use Status: Never used Tobacco Current occupational status: disabled Current occupation: Lt handed Review of Systems Const All systems reviewed & are unremarkable except as noted in HPI and below Eyes Reports no additional complaints ENT Reports no additional complaints Card Denies chest pain, Denies irregular heart rhythm and Denies leg edema Resp Reports as per HPI GI Reports no additional complaints Reports no additional complaints Musc Reports back pain and Reports muscle weakness Skin/Breast Reports system reviewed and no additional complaints, except as documented Neuro Reports Neuro-related abnormal movements and Reports other (Case of posttraumatic paraparesis) Psych Reports no additional complaints Endo Reports other (Diabetes mellitus with labile blood sugars) Physical Exam Vital Signs: Last Vital Signs Pulse 98 01/12/24 11:13 BP 142/68 H 01/12/24 11:13 Pulse Ox 98 01/12/24 11:13 Oxygen Delivery Method Room Air 01/12/24 11:13 BMI result Body Mass Index 37.7 Const General: comfortable, no acute distress, alert and awake Orientation/consciousness: patient oriented x3 HEENT Head: Yes normal to inspection General nose exam: No nasal polyps present and No nasal discharge present Face and sinus: Yes sinuses nontender Mouth: oropharynx abnormals (Very crowded, Mallampati class 4) Throat: Yes posterior oropharynx normal Eyes General: appearance normal, both eyes and all related structures Neck Neck: Yes normal visual inspection, Yes no lymphadenopathy, Yes trachea midline, Yes no JVD and Yes other (Short and obese) Thyroid: Thyroid normal Chest Chest palpation & inspection: normal inspection of the chest, normal palpation of entire chest wall and no tenderness Resp Other: Percussion note resonant, breath sounds are distant and especially decreased over the bibasilar areas. No wheezes, rhonchi or crepitations are heard today. He has a relatively small lung volumes but both lungs are clear. Cardio Palpation: normal PMI Rate: regular rate Rhythm: regular rhythm Heart sounds: no gallops and no murmurs GI Palpation (GI): Soft to palpation, nontender, No hepatosplenomegaly present, no masses and Other GI palpation findings present (Abdomen is quite obese and protuberant) Auscultation: normal bowel sounds Back/Spine/Pelvis Thoracic/Lumbar Spine: thoracic and lumbar spine normal to inspection Skin General skin exam: no rashes or lesions noted Neuro General: patient oriented x3, No gait normal (Not able to walk,he uses quad cane in the house,motorized chair for outdoor) and no focal motor deficits Cranial nerves: Yes CN's II-XII intact bilaterally Extrem General: Yes normal to inspection, Yes no calf tenderness and Yes edema (Mild dependent edema of the legs) Psych Appearance: grossly normal and well kempt Speech and movement: Normal speech and movement present Results Reviewed Results Reviewed: COMPLIANCE REPORT FOR THE LAST 30 NIGHTS IS REVIEWED AND HE HAS USED 30/30 NIGHTS, 100%. AVERAGE USES PER NIGHT 7 HOURS 24 MINUTES. PRESSURE 10 CM. NO AIR LEAK. RESIDUAL AHI ONLY 1.1 Assessment & Plan Assessment & Plan (1) SABRINA (obstructive sleep apnea): Comment: KNOWN CASE OF SEVERE SABRINA . HE IS VERY HAPPY AND DOING WELL WITH HIS NEW CPAP, WITH PRESSURE OF 10 CM. COMPLIANCE IS VERY GOOD Code(s): G47.33 - Obstructive sleep apnea (adult) (pediatric) Category: Medical Plan: COMMENDED FOR GOOD COMPLIANCE AND ADVISED TO CONTINUE USING THE CPAP WITH PRESSURE OF 10 CM (2) Morbid obesity: Comment: PATIENT IS WELL AWARE OF THIS PROBLEM . HE IS TRYING TO LOSE WEIGHT ON HIS OWN . HAS LOST MORE WEIGHT SINCE THE LAST VISIT. HE IS QUITE DETERMINED TO KEEP ON CONTROLLING HIS DIET AND WALK DAILY . Code(s): E66.01 - Morbid (severe) obesity due to excess calories Category: Medical Plan: COMMENDED FOR LOSING MORE WEIGHT . DISCUSSED WITH HIM AND HIS FIANCEE ABOUT CONTROLLING THE DIET, AND WALKING MORE EVERY DAY. (3) Restrictive lung disease: Comment: SECONDARY TO MORBID OBESITY, Code(s): J98.4 - Other disorders of lung Category: Medical Plan: ADVISED TO CONTINUE DOING DEEP BREATHING EXERCISES. (4) COPD (chronic obstructive pulmonary disease): Comment: ASTHMA/COPD ,. IMPROVED AND STABLE. NO RECENT ACUTE EXACERBATION . Code(s): J44.9 - Chronic obstructive pulmonary disease, unspecified Category: Medical Plan: CONTINUE ARNUITY ELLIPTA -100 1 INHALATION DAILY ALBUTEROL HFA 2 PUFFS Q 4-6 HOURS BUT ONLY P.R.N. Coding Level of Care Code Est Pt Level 3 (39779) Diagnoses SABRINA (obstructive sleep apnea) G47.33 Morbid obesity E66.01 Restrictive lung disease J98.4 COPD (chronic obstructive pulmonary disease) J44.9
== END 2024-01-12 11:35 | disposition home or self-care (01) ==
PROVIDERS: PCP Internal Medicine; Visit Provider Internal Medicine
DX: G47.33 Obstructive sleep apnea (adult) (pediatric) (principal); E66.01 Morbid (severe) obesity due to excess calories; J98.4 Other disorders of lung; J44.9 Chronic obstructive pulmonary disease, unspecified
CPT/HCPCS: 99213

== ENCOUNTER → 2024-01-12 11:03 | Outpatient (BNVA) | payer MEDICARE, MEDICAID, SELFPAY | PROVIDERS: PCP Internal Medicine; Visit Provider Internal Medicine | DX: G47.33 Obstructive sleep apnea (adult) (pediatric) (principal); J98.4 Other disorders of lung; J44.9 Chronic obstructive pulmonary disease, unspecified; E66.01 Morbid (severe) obesity due to excess calories; Z68.37 Body mass index [BMI] 37.0-37.9, adult | CPT/HCPCS: 99212 ==

== ENCOUNTER 2024-02-18 09:18 | Outpatient (AMB) | payer MEDICARE, MEDICAID, SELFPAY ==
[2024-02-18 09:42] VITALS: BP 120/78; PULSE 77; O2SAT 95; BMI 37.2
--- NOTE | 2024-02-18 09:42 | A.OFFVIS_ITS ---
Vital Signs 02/18/24 09:42 Height 6 ft Weight 274 lb 7.608 oz BMI 37.2 BP 120/78 Blood Pressure Location Lt brachial Position Sitting Pulse 77 Pulse Source Pulse Oximeter Pulse Oximetry (%) 95 Oxygen Delivery Method Room Air Intake Visit Reasons: devan Intake Note: pt is here for follow up of devan and doing well with cpap, but he has been fighting asthma for over a month, pcp told him to use Arnuity to bid dosing until appt., and he is using duoneb 4 x daily and needs a new script for this. Mannequin Wig Maker Required: No Allergies codeine Allergy (Unknown, Verified 02/18/24 10:04) itching ibuprofen [IBUPROFEN] Allergy (Unknown, Verified 02/18/24 10:04) HIVES ketorolac Allergy (Unknown, Verified 02/18/24 10:04) swelling sumatriptan [From IMITREX] Allergy (Unknown, Verified 02/18/24 10:04) TACHYCARDIA bupropion [From Wellbutrin] Adverse Reaction (Severe, Verified 02/18/24 10:04) suicide thoughts prochlorperazine [From Compazine] Adverse Reaction (Unknown, Verified 02/18/24 10:04) Unknown Medication List - Last Reconciled 02/18/24 by Amish Smith MD albuterol sulfate 90 mcg/actuation 2 puffs inhalation Q4-6H PRN amlodipine 7.5 mg PO DAILY [Ankle support brace As directed] Arnuity Ellipta 100 mcg/actuation (fluticasone furoate) 1 inh PO DAILY NS celecoxib 200 mg PO BID erythromycin 125 mg PO 6XD ferrous sulfate 325 mg PO DAILY flu vac qs 2019(4 yr up)CD(PF) mL IM furosemide 20 mg PO DAILY insulin lispro 1 sliding scale dose subcut USEASDIRECTD insulin lispro (Humalog KwikPen U-200 Insulin) subcut insulin syringe-needle U-100 As directed ipratropium-albuterol 0.5 mg-3 mg(2.5 mg base)/3 mL 3 mL inhalation QID 30 days lansoprazole 30 mg PO DAILY lisinopril 40 mg PO DAILY pregabalin 150 mg PO TID rosuvastatin 40 mg PO DAILY Do you need a note to return to daycare/school/sports/work: No HPI HPI devan: Details: 48 years old gentleman grossly obese, and known case of obstructive sleep apnea, . Comes for his routine follow-up He also has chronic bronchial asthma being treated with Arnuity 100 mcg once a day . He remains grossly obese. In the last 3 weeks he is having some nasal congestion with hoarseness, no fever or chills . Has been using Zyrtec 10 mg once a day with some help. Also increased Tylsmes-113-4 puffs a day. He denies any wheezing, cough, is minimal mostly dry . But he feels that he remains somewhat congested in the upper airways. [facility] Medical History Obesity (BMI 35.0-39.9 without comorbidity) Bronchitis COPD (chronic obstructive pulmonary disease) Restrictive lung disease DEVAN (obstructive sleep apnea) Morbid obesity Social History Household Members: Significant Other Housing: House Alcohol intake: never Patient Tobacco Use Status: Never used Tobacco Current occupational status: disabled Current occupation: Lt handed Review of Systems Const All systems reviewed & are unremarkable except as noted in HPI and below Eyes Reports no additional complaints ENT Reports no additional complaints Card Denies chest pain, Denies irregular heart rhythm and Denies leg edema Resp Reports as per HPI GI Reports no additional complaints Reports no additional complaints Musc Reports back pain and Reports muscle weakness Skin/Breast Reports system reviewed and no additional complaints, except as documented Neuro Reports Neuro-related abnormal movements and Reports other (Case of posttraumatic paraparesis) Psych Reports no additional complaints Endo Reports other (Diabetes mellitus with labile blood sugars) Physical Exam Vital Signs: Last Vital Signs Pulse 77 02/18/24 09:42 BP 120/78 02/18/24 09:42 Pulse Ox 95 02/18/24 09:42 Oxygen Delivery Method Room Air 02/18/24 09:42 BMI result Body Mass Index 37.2 Const General: comfortable, no acute distress, alert and awake Orientation/consciousness: patient oriented x3 HEENT Head: Yes normal to inspection General nose exam: No nasal polyps present and No nasal discharge present Face and sinus: Yes sinuses nontender Mouth: oropharynx abnormals (Very crowded, Mallampati class 4) Throat: Yes posterior oropharynx normal Eyes General: appearance normal, both eyes and all related structures Neck Neck: Yes normal visual inspection, Yes no lymphadenopathy, Yes trachea midline, Yes no JVD and Yes other (Short and obese) Thyroid: Thyroid normal Chest Chest palpation & inspection: normal inspection of the chest, normal palpation of entire chest wall and no tenderness Resp Other: Percussion note resonant, breath sounds are distant and especially decreased over the bibasilar areas. No wheezes, rhonchi or crepitations are heard today. He has a relatively small lung volumes but both lungs are clear. Cardio Palpation: normal PMI Rate: regular rate Rhythm: regular rhythm Heart sounds: no gallops and no murmurs GI Palpation (GI): Soft to palpation, nontender, No hepatosplenomegaly present, no masses and Other GI palpation findings present (Abdomen is quite obese and protuberant) Auscultation: normal bowel sounds Back/Spine/Pelvis Thoracic/Lumbar Spine: thoracic and lumbar spine normal to inspection Skin General skin exam: no rashes or lesions noted Neuro General: patient oriented x3, No gait normal (Not able to walk,he uses quad cane in the house,motorized chair for outdoor) and no focal motor deficits Cranial nerves: Yes CN's II-XII intact bilaterally Extrem General: Yes normal to inspection, Yes no calf tenderness and Yes edema (Mild dependent edema of the legs) Psych Appearance: grossly normal and well kempt Speech and movement: Normal speech and movement present Office Procedures Spirometry Testing Spirometry Comments: Spirometry done in the office, Dr. Smith has the results results scanned to his chart. [id number]- Spirometry Results Reviewed Results Reviewed: Compliance report is reviewed and he has been using 30/30 nights, 100% Spirometry ; FVC 84%, FEV1 86% FEV1/FVC RATIO 81 FEF 25-75 101% NORMAL Assessment & Plan Assessment & Plan (1) COPD (chronic obstructive pulmonary disease): Comment: ASTHMA/COPD ,. IMPROVED AND STABLE. NO RECENT ACUTE EXACERBATION . CURRENTLY COMPLAINS OF IRRITATION IN HIS THROAT AN URGE TO COUGH, PROBABLY HAS HAD A NONSPECIFIC VIRAL INFECTION. Code(s): J44.9 - Chronic obstructive pulmonary disease, unspecified Category: Medical Plan: EXPLAINED THAT HIS SPIROMETRY IS ACTUALLY NORMAL, AND HIS ASTHMA SEEM TO BE UNDER GOOD CONTROL AT THIS TIME. ARNUITY -100, 1 INHALATION DAILY IPRATROPIUM BROMIDE-ALBUTEROL SOLUTION IN THE NEBULIZER Q 6 HOURS P.R.N.. ADVISED TO DO LOT OF GARGLING OF THE THROAT , AND STEAM INHALATIONS 2 TO 3 TIMES A DAY. (2) DEVAN (obstructive sleep apnea): Comment: KNOWN CASE OF SEVERE DEVAN . HE IS VERY HAPPY AND DOING WELL WITH HIS NEW CPAP, WITH PRESSURE OF 10 CM. COMPLIANCE IS VERY GOOD Code(s): G47.33 - Obstructive sleep apnea (adult) (pediatric) Category: Medical Plan: Commended for good compliance and advised to keep on using CPAP regularly every night (3) Obesity (BMI 35.0-39.9 without comorbidity): Comment: He has history of morbid obesity but over the last few years he has gradually lost more than 100 lb of weight. He is a known case of gastro paresis, and is not able to eat large portions of food at a time. He continues to lose weight, slowly Code(s): E66.9 - Obesity, unspecified Category: Medical Plan: Discuss about the weight issue and encouraged to keep on losing weight slowly . Orders: Orders AMB Spirometry Testing Today J44.9 - Chronic obstructive pulmonary disease, unspecified Coding Level of Care Code Est Pt Level 4 (82406) Diagnoses COPD (chronic obstructive pulmonary disease) J44.9 DEVAN (obstructive sleep apnea) G47.33 Obesity (BMI 35.0-39.9 without comorbidity) E66.9 CPT Codes Spirometry - CPT: 21031- Spirometry ([id number])
== END 2024-02-18 10:28 | disposition home or self-care (01) ==
PROVIDERS: PCP Internal Medicine; Visit Provider Internal Medicine
DX: J44.9 Chronic obstructive pulmonary disease, unspecified (principal); G47.33 Obstructive sleep apnea (adult) (pediatric); E66.9 Obesity, unspecified
CPT/HCPCS: 94010; 99214

== ENCOUNTER → 2024-02-18 09:18 | Outpatient (BNVA) | payer MEDICARE, MEDICAID, SELFPAY | PROVIDERS: PCP Internal Medicine; Visit Provider Internal Medicine | DX: G47.33 Obstructive sleep apnea (adult) (pediatric) (principal); J44.9 Chronic obstructive pulmonary disease, unspecified; E66.9 Obesity, unspecified; Z68.37 Body mass index [BMI] 37.0-37.9, adult; Z99.89 Dependence on other enabling machines and devices | CPT/HCPCS: 94010; 99212 ==

== ENCOUNTER 2024-02-25 12:43 | Outpatient (AMB) | payer MEDICARE, MEDICAID, SELFPAY ==
--- NOTE | 2024-02-25 12:58 | A.OFFVIS_ITS ---
Intake Visit Reasons: OV - right ankle pain Intake Note: Shubham is a 48 year old male who presents for a follow up of right ankle injection, last injection 12/12/2023. Patient reports las injection provided him with good relief. He would like to repeat injection. Allergies codeine Allergy (Unknown, Verified 02/25/24 13:08) itching ibuprofen [IBUPROFEN] Allergy (Unknown, Verified 02/25/24 13:08) HIVES ketorolac Allergy (Unknown, Verified 02/25/24 13:08) swelling sumatriptan [From IMITREX] Allergy (Unknown, Verified 02/25/24 13:08) TACHYCARDIA bupropion [From Wellbutrin] Adverse Reaction (Severe, Verified 02/25/24 13:08) suicide thoughts prochlorperazine [From Compazine] Adverse Reaction (Unknown, Verified 02/25/24 13:08) Unknown HPI HPI OV - right ankle pain: Details: 48-year-old male who returns to the office today for a follow-up of right ankle pain. He had his last injection on 12/12/23 which provided him good relief. He would like to repeat the injection. [facility] Medical History Obesity (BMI 35.0-39.9 without comorbidity) Bronchitis COPD (chronic obstructive pulmonary disease) Restrictive lung disease SABRINA (obstructive sleep apnea) Morbid obesity Social History Household Members: Significant Other Housing: House Alcohol intake: never Patient Tobacco Use Status: Never used Tobacco Current occupational status: disabled Current occupation: Lt handed Review of Systems Const All systems reviewed & are unremarkable except as noted in HPI and below Physical Exam Extrem Other: Right ankle normal to inspection.? Significant tenderness over the medial and lateral joint of the ankle No tenderness over the syndesmosis. No significant swelling. No ankle instability. NVI .? Limited range of motion Office Procedures Joint Injection/Drain Joint Injection/Drain Secondary Site: right ankle Prep: site was prepped using aseptic technique, ethochloride spray was applied and injection warnings given Injected: 80 mg of, DepoMedrol, with 1 mL of, 1% plain lidocaine and in the joint Procedure: The patient tolerated the procedure well and there was some relief with the local anesthesia Coding 27070 - Medium joint Procedure code (CPT) selection complete Assessment & Plan Assessment & Plan (1) Osteoarthritis of ankle, right: Code(s): M19.071 - Primary osteoarthritis, right ankle and foot Category: Medical Qualifiers: Osteoarthritis type: primary Qualified Code(s): M19.071 - Primary osteoarthritis, right ankle and foot Plan We discussed options today, which include steroid injection. The patient did consent to move forward with the right ankle injection, which was tolerated well. I recommended rest, ice, and elevation and OTC anti-inflammatories as needed for discomfort. We also discussed diabetes and the effect the steroid injection can have on their blood glucose levels; therefore, they will continue to monitor these very closely over the next 72 hours. If there are concerns, they should report to the ED immediately. Patient Instructions: Scribed for Frederick Urbina PA-C, by Alejo Huynh chief medical technologist, on 02/25/2024 at 1:00 PM EST.? I, Frederick Urbina PA-C, have personally reviewed and agree with the information entered by the scribe. Coding Level of Care Code Est Pt Level 3 (90762) Diagnoses Primary osteoarthritis of right ankle M19.071 Osteoarthritis type: primary CPT Codes Coding - 88486 Medium joint: 58149 - Medium joint ([id number])
== END 2024-02-25 13:45 | disposition home or self-care (01) ==
PROVIDERS: PCP Internal Medicine; Visit Provider Physician Assistant
DX: M19.071 Primary osteoarthritis, right ankle and foot (principal)
CPT/HCPCS: 20605

== ENCOUNTER → 2024-02-25 12:43 | Outpatient (BNVA) | payer MEDICARE, MEDICAID, SELFPAY | PROVIDERS: PCP Internal Medicine; Visit Provider Physician Assistant | DX: M19.071 Primary osteoarthritis, right ankle and foot (principal) | CPT/HCPCS: 20605; J1010 ==

== ENCOUNTER 2024-04-12 10:27 | Outpatient (AMB) | payer MEDICARE, MEDICAID, SELFPAY ==
[2024-04-12 10:38] VITALS: BP 142/82; PULSE 75; O2SAT 98; BMI 37.1
--- NOTE | 2024-04-12 10:38 | MHC.OFFVIS ---
Vital Signs 04/12/24 10:38 Height 6 ft Weight 273 lb 5.971 oz BMI 37.1 BP 142/82 H Blood Pressure Location Lt brachial Position Sitting Pulse 75 Pulse Source Pulse Oximeter Pulse Oximetry (%) 98 Oxygen Delivery Method Room Air Intake Visit Reasons: Obstructive sleep apnea Intake Note: pt is here for follow up and states he is doing well with cpap. He states some breathing issues, went on sudafed and seems to be working. Gis Analyst Developer Required: No Allergies codeine Allergy (Unknown, Verified 04/12/24 10:44) itching ibuprofen [IBUPROFEN] Allergy (Unknown, Verified 04/12/24 10:44) HIVES ketorolac Allergy (Unknown, Verified 04/12/24 10:44) swelling sumatriptan [From IMITREX] Allergy (Unknown, Verified 04/12/24 10:44) TACHYCARDIA bupropion [From Wellbutrin] Adverse Reaction (Severe, Verified 04/12/24 10:44) suicide thoughts prochlorperazine [From Compazine] Adverse Reaction (Unknown, Verified 04/12/24 10:44) Unknown Medication List - Last Reconciled 04/12/24 by Amish Smith MD albuterol sulfate 90 mcg/actuation 2 puffs inhalation Q4-6H PRN amlodipine 7.5 mg PO DAILY [Ankle support brace As directed] Arnuity Ellipta 100 mcg/actuation (fluticasone furoate) 1 inh PO DAILY NS celecoxib 200 mg PO BID erythromycin 125 mg PO 6XD ferrous sulfate 325 mg PO DAILY flu vac qs 2019(4 yr up)CD(PF) mL IM furosemide 20 mg PO DAILY insulin lispro 1 sliding scale dose subcut USEASDIRECTD insulin lispro (Humalog KwikPen U-200 Insulin) subcut insulin syringe-needle U-100 As directed ipratropium-albuterol 0.5 mg-3 mg(2.5 mg base)/3 mL 3 mL inhalation QID 30 days lansoprazole 30 mg PO DAILY lisinopril 40 mg PO DAILY pregabalin 150 mg PO TID rosuvastatin 40 mg PO DAILY Do you need a note to return to daycare/school/sports/work: No HPI HPI Obstructive sleep apnea: Details: 48 YEARS OLD GENTLEMAN GROSSLY OBESE, CASE OF OBSTRUCTIVE SLEEP APNEA, AND CHRONIC ALLERGIC TYPE BRONCHIAL ASTHMA, COMES FOR FOLLOW-UP. HE IS GRADUALLY LOSING. WEIGHT AND IS HAPPY ABOUT THAT HE USES CPAP VERY REGULARLY EVERY. NIGHT AND SLEEPS WELL HE GETS NASAL CONGESTION WITH SOME POSTNASAL DISCHARGE OFF AND ON FOR WHICH HE TAKES EITHER MUCINEX P.R.N. OR SUDAFED-12 HOURS B.I.D. THAT CLEARS HIS NOSE AND THROAT. OVERALL HE IS DOING WELL. [facility] Medical History Obesity (BMI 35.0-39.9 without comorbidity) Bronchitis COPD (chronic obstructive pulmonary disease) Restrictive lung disease SABRINA (obstructive sleep apnea) Morbid obesity Social History Household Members: Significant Other Housing: House Alcohol intake: never Patient Tobacco Use Status: Never used Tobacco Current occupational status: disabled Current occupation: Lt handed Review of Systems Const All systems reviewed & are unremarkable except as noted in HPI and below Eyes Reports no additional complaints ENT Reports no additional complaints Card Denies chest pain, Denies irregular heart rhythm and Denies leg edema Resp Reports as per HPI GI Reports no additional complaints Reports no additional complaints Musc Reports back pain and Reports muscle weakness Skin/Breast Reports system reviewed and no additional complaints, except as documented Neuro Reports Neuro-related abnormal movements and Reports other (Case of posttraumatic paraparesis) Psych Reports no additional complaints Endo Reports other (Diabetes mellitus with labile blood sugars) Physical Exam Vital Signs: Last Vital Signs Pulse 75 04/12/24 10:38 BP 142/82 H 04/12/24 10:38 Pulse Ox 98 04/12/24 10:38 Oxygen Delivery Method Room Air 04/12/24 10:38 BMI result Body Mass Index 37.1 Const General: comfortable, no acute distress, alert and awake Orientation/consciousness: patient oriented x3 HEENT Head: Yes normal to inspection General nose exam: No nasal polyps present and No nasal discharge present Face and sinus: Yes sinuses nontender Mouth: oropharynx abnormals (Very crowded, Mallampati class 4) Throat: Yes posterior oropharynx normal Eyes General: appearance normal, both eyes and all related structures Neck Neck: Yes normal visual inspection, Yes no lymphadenopathy, Yes trachea midline, Yes no JVD and Yes other (Short and obese) Thyroid: Thyroid normal Chest Chest palpation & inspection: normal inspection of the chest, normal palpation of entire chest wall and no tenderness Resp Other: Percussion note resonant, breath sounds are distant and especially decreased over the bibasilar areas. No wheezes, rhonchi or crepitations are heard today. He has a relatively small lung volumes but both lungs are clear. Cardio Palpation: normal PMI Rate: regular rate Rhythm: regular rhythm Heart sounds: no gallops and no murmurs GI Palpation (GI): Soft to palpation, nontender, No hepatosplenomegaly present, no masses and Other GI palpation findings present (Abdomen is quite obese and protuberant) Auscultation: normal bowel sounds Back/Spine/Pelvis Thoracic/Lumbar Spine: thoracic and lumbar spine normal to inspection Skin General skin exam: no rashes or lesions noted Neuro General: patient oriented x3, No gait normal (Not able to walk,he uses quad cane in the house,motorized chair for outdoor) and no focal motor deficits Cranial nerves: Yes CN's II-XII intact bilaterally Extrem General: Yes normal to inspection, Yes no calf tenderness and Yes edema (Mild dependent edema of the legs) Psych Appearance: grossly normal and well kempt Speech and movement: Normal speech and movement present Office Procedures Spirometry Testing Spirometry Comments: In office spirometry completed with results given to Dr Smith. 98438- Spirometry Results Reviewed Results Reviewed: COMPLIANCE REPORT FOR THE LAST 30 NIGHTS IS REVIEWED. HE HAS USED 30/30 NIGHTS., 100% AVERAGE USE IT PER NIGHT. 8 HOURS 7 MINUTES WHICH IS EXCELLENT PRESSURE IS 10 CM. CPAP NO SIGNIFICANT AIR LEAK. RESIDUAL AHI 2.4 SPIROMETRY : ESSENTIALLY NORMAL Assessment & Plan Assessment & Plan (1) Obesity (BMI 35.0-39.9 without comorbidity): Comment: He has history of morbid obesity but over the last few years he has gradually lost more than 100 lb of weight. He is a known case of gastro paresis, and is not able to eat large portions of food at a time. He continues to lose weight, slowly Code(s): E66.9 - Obesity, unspecified Category: Medical Plan: COMMENDED FOR LOSING WEIGHT. CONTINUE TO LOSE MORE WEIGHT GRADUALLY DISCUSSED THE GOAL WITH HIM AND I THINK IS OPTIMAL GOAL WILL BE 200 LB (2) SABRINA (obstructive sleep apnea): Comment: KNOWN CASE OF SEVERE SABRINA . HE IS VERY HAPPY AND DOING WELL WITH HIS NEW CPAP, WITH PRESSURE OF 10 CM. COMPLIANCE IS VERY GOOD Code(s): G47.33 - Obstructive sleep apnea (adult) (pediatric) Category: Medical Plan: COMMENDED FOR GOOD COMPLIANCE AND WILL CONTINUE TO USE THE CPAP VERY REGULARLY, EVERY NIGHT (3) Restrictive lung disease: Comment: SECONDARY TO MORBID OBESITY, WITH SIGNIFICANT WEIGHT LOSS HIS RESTRICTIVE COMPONENT HAS IMPROVED . AND THE SPIROMETRY TODAY SHOWS THAT HIS FVC IS NORMAL. Code(s): J98.4 - Other disorders of lung Category: Medical Plan: ADVISED TO CONTINUE LOSING MORE WEIGHT AND ALSO DO DEEP BREATHING EXERCISES 3 TIMES A DAY (4) COPD (chronic obstructive pulmonary disease): Comment: HIS CURRENT SPIROMETRY DOES NOT SHOW ANY SIGNIFICANT OBSTRUCTIVE AIRWAY DISORDER. I THINK HIS DIAGNOSIS WILL BE HYPERSENSITIVITY TYPE BRONCHIAL ASTHMA, WHICH IS WELL CONTROLLED AT THIS TIME. Code(s): J44.9 - Chronic obstructive pulmonary disease, unspecified Category: Medical Plan: I EXPLAINED TO HIM THE FINDINGS OF SPIROMETRY. TOLD HIM THAT HE DOES NOT HAVE COPD. HE HAS MILD ALLERGIC BRONCHIAL ASTHMA. ADVISED TO USE SUDAFED ONLY P.R.N.. ADVISED THAT HE MAY GO OFF OR NEW IT HE INHALER, AND STAY ON ALBUTEROL HFA Q 6 HOURS ONLY P.R.N.. IF SYMPTOMS GET ANY WORSE THEN HE CAN GO BACK TO [facility] ONCE A DAY. Orders: Orders AMB Spirometry Testing Today J44.9 - Chronic obstructive pulmonary disease, unspecified Coding Level of Care Code Est Pt Level 4 (15165) Diagnoses Obesity (BMI 35.0-39.9 without comorbidity) E66.9 SABRINA (obstructive sleep apnea) G47.33 Restrictive lung disease J98.4 COPD (chronic obstructive pulmonary disease) J44.9 CPT Codes Spirometry - CPT: 90690- Spirometry ([id number])
== END 2024-04-12 11:26 | disposition home or self-care (01) ==
PROVIDERS: PCP Internal Medicine; Visit Provider Internal Medicine
DX: E66.9 Obesity, unspecified (principal); G47.33 Obstructive sleep apnea (adult) (pediatric); J98.4 Other disorders of lung; J44.9 Chronic obstructive pulmonary disease, unspecified
CPT/HCPCS: 94010; 99214

== ENCOUNTER → 2024-04-12 10:27 | Outpatient (BNVA) | payer MEDICARE, MEDICAID, SELFPAY | PROVIDERS: PCP Internal Medicine; Visit Provider Internal Medicine | DX: J44.9 Chronic obstructive pulmonary disease, unspecified (principal); G47.33 Obstructive sleep apnea (adult) (pediatric); J98.4 Other disorders of lung; E66.9 Obesity, unspecified; Z68.37 Body mass index [BMI] 37.0-37.9, adult | CPT/HCPCS: 94010; 99212 ==

== ENCOUNTER 2024-05-27 12:21 | Outpatient (AMB) | payer MEDICARE, MEDICAID, SELFPAY ==
--- NOTE | 2024-05-27 12:38 | MHC.OFFVIS ---
Vital Signs 05/27/24 12:47 Height 6 ft Weight 273 lb BMI 37.0 Intake Visit Reasons: Inj-Right ankle inj-last injection 02/25/24 Intake Note: Shubham a 48 year old male who presents today for a follow up of right ankle, last injection 02/25/24. Patient reports injection provided him with relief however his pain has been radiating up his leg. He would like to repeat injection today. Allergies codeine Allergy (Unknown, Verified 05/27/24 12:47) itching ibuprofen [IBUPROFEN] Allergy (Unknown, Verified 05/27/24 12:47) HIVES ketorolac Allergy (Unknown, Verified 05/27/24 12:47) swelling sumatriptan [From IMITREX] Allergy (Unknown, Verified 05/27/24 12:47) TACHYCARDIA bupropion [From Wellbutrin] Adverse Reaction (Severe, Verified 05/27/24 12:47) suicide thoughts prochlorperazine [From Compazine] Adverse Reaction (Unknown, Verified 05/27/24 12:47) Unknown Medication List - Last Reconciled 05/27/24 by Frederick Urbina PA-C albuterol sulfate 90 mcg/actuation 2 puffs inhalation Q4-6H PRN amlodipine 7.5 mg PO DAILY [Ankle support brace As directed] Arnuity Ellipta 100 mcg/actuation (fluticasone furoate) 1 inh inhalation DAILY NS celecoxib 200 mg PO BID erythromycin 125 mg PO 6XD ferrous sulfate 325 mg PO DAILY flu vac qs 2019(4 yr up)CD(PF) mL IM furosemide 20 mg PO DAILY insulin lispro 1 sliding scale dose subcut USEASDIRECTD insulin lispro (Humalog KwikPen U-200 Insulin) subcut insulin syringe-needle U-100 As directed ipratropium-albuterol 0.5 mg-3 mg(2.5 mg base)/3 mL 3 mL inhalation QID 30 days lansoprazole 30 mg PO DAILY lisinopril 40 mg PO DAILY pregabalin 150 mg PO TID rosuvastatin 40 mg PO DAILY HPI HPI Inj-Right ankle inj-last injection 02/25/24: Details: 48-year-old male who returns to the office today for a follow-up of right ankle pain. He had his last injection on 02/25/24 that provided him relief until recently. He currently states he has pain in his right ankle that radiates up to his leg. He has been taking Celebrex for his pain. He is working on exercises as instructed. He would like to repeat the injection today. He has a history of diabetes. [facility] Medical History Obesity (BMI 35.0-39.9 without comorbidity) Bronchitis COPD (chronic obstructive pulmonary disease) Restrictive lung disease SABRINA (obstructive sleep apnea) Morbid obesity Social History Household Members: Significant Other Housing: House Alcohol intake: never Patient Tobacco Use Status: Never used Tobacco Current occupational status: disabled Current occupation: Lt handed Review of Systems Const All systems reviewed & are unremarkable except as noted in HPI and below Physical Exam Vital Signs: BMI result Body Mass Index 37.0 Extrem Other: Right ankle normal to inspection.? Significant tenderness over the medial and lateral joint of the ankle No tenderness over the syndesmosis. No significant swelling. No ankle instability. NVI .? Limited range of motion Office Procedures Joint Injection/Aspiration Joint Injection/Aspiration Primary Site: right ankle Prep: site was prepped using aseptic technique, ethochloride spray was applied and injection warnings given Injected: 80 mg of, DepoMedrol, with 1 mL of, 1% plain lidocaine and in the joint Approach Used: anteromedial Procedure: The patient tolerated the procedure well and there was some relief with the local anesthesia Coding 79271 - Small Joint Procedure code (CPT) selection complete Assessment & Plan Assessment & Plan (1) Osteoarthritis of ankle, right: Code(s): M19.071 - Primary osteoarthritis, right ankle and foot Category: Medical Qualifiers: Osteoarthritis type: primary Qualified Code(s): M19.071 - Primary osteoarthritis, right ankle and foot Plan We discussed options today, which include steroid injection. The patient did consent to move forward with the right ankle injection, which was tolerated well. I recommended rest, ice, and elevation and OTC anti-inflammatories as needed for discomfort. We also discussed diabetes and the effect the steroid injection can have on their blood glucose levels; therefore, they will continue to monitor these very closely over the next 72 hours. If there are concerns, they should report to the ED immediately. Orders: Orders XR ankle RT min 3V Today M25.571 - Pain in right ankle and joints of right foot Patient Instructions: Scribed for Frederick Urbina PA-C, by Alejo Huynh dental assistant medical assistant, on 05/27/2024 at 12:45 PM EST.? I, Frederick Urbina PA-C, have personally reviewed and agree with the information entered by the scribe. Coding Level of Care Code Est Pt Level 3 (93711) Complex EM visit Add On G2211 Diagnoses Primary osteoarthritis of right ankle M19.071 Osteoarthritis type: primary CPT Codes Coding - 04712 - Small joint: 42819 - Small Joint ([id number])
[2024-05-27 12:47] VITALS: BMI 37.0
== END 2024-05-27 13:01 | disposition home or self-care (01) ==
PROVIDERS: PCP Internal Medicine; Visit Provider Physician Assistant
DX: M19.071 Primary osteoarthritis, right ankle and foot (principal)
CPT/HCPCS: 20605; 99213

== ENCOUNTER 2024-05-27 16:34 | Outpatient (REF) | payer MEDICARE, MEDICAID, SELFPAY ==
--- NOTE | ~2024-05-27 | XR_ITS ---
EXAMINATION: XR ANKLE RIGHT 3 VIEWS CLINICAL INFORMATION: Pain in right ankle and joints of right foot M25.571. COMPARISON: XR Right ankle 06/14/2021 TECHNIQUE: AP, lateral, and mortise views of the right ankle. FINDINGS: Visualized portions of the distal tibia and fibula demonstrate no fracture. Again demonstrated are severe degenerative changes of the tibiotalar joint with loss of joint space and chronic bony deformity of the talar dome. Prominent osteophytes are noted. A small ankle joint effusion is suspected. No localized soft tissue swelling. No radiopaque foreign body. XR/XR ankle RT min 3V IMPRESSION: Severe degenerative changes and chronic remodeling of the right ankle. No fracture. Electronically signed by: Javier Vidal MD 08/04/2024 08:50 AM WANDA CHOU
== END 2024-05-27 16:35 | disposition home or self-care (01) ==
LOC: HO.HOSX 16:34
PROVIDERS: Visit Provider Physician Assistant
DX: M19.071 Primary osteoarthritis, right ankle and foot (principal)
CPT/HCPCS: 20605; 73610; 99212; J1010; J2003

== ENCOUNTER 2024-06-24 09:54 | Outpatient (AMB) | payer MEDICARE, MEDICAID, SELFPAY ==
[2024-06-24 10:04] VITALS: BP 120/78; PULSE 71; O2SAT 99; BMI 33.4
--- NOTE | 2024-06-24 10:04 | MHC.OFFVIS ---
Vital Signs 06/24/24 10:04 Height 6 ft Weight 246 lb 0.574 oz BMI 33.4 BP 120/78 Blood Pressure Location Lt brachial Position Sitting Pulse 71 Pulse Source Pulse Oximeter Pulse Oximetry (%) 99 Oxygen Delivery Method Room Air Intake Visit Reasons: Osteoarthritis/CM Intake Note: Patient presents as a new patient today who is externally referred for osteoarthritis. Patient states he has felt this way for a few years. Accompanied by: Spouse Allergies codeine Allergy (Unknown, Verified 05/27/24 12:47) itching ibuprofen [IBUPROFEN] Allergy (Unknown, Verified 05/27/24 12:47) HIVES ketorolac Allergy (Unknown, Verified 05/27/24 12:47) swelling sumatriptan [From IMITREX] Allergy (Unknown, Verified 05/27/24 12:47) TACHYCARDIA bupropion [From Wellbutrin] Adverse Reaction (Severe, Verified 05/27/24 12:47) suicide thoughts prochlorperazine [From Compazine] Adverse Reaction (Unknown, Verified 05/27/24 12:47) Unknown Medication List - Last Reconciled 06/24/24 by Gosia Graff MD albuterol sulfate 90 mcg/actuation 2 puffs inhalation Q4-6H PRN amlodipine 7.5 mg PO DAILY [Ankle support brace As directed] Arnuity Ellipta 100 mcg/actuation (fluticasone furoate) 1 inh inhalation DAILY NS celecoxib 200 mg PO BID erythromycin 125 mg PO 6XD ferrous sulfate 325 mg PO DAILY flu vac qs 2020(4 yr up)CD(PF) mL IM fluticasone propionate 50 mcg/actuation (Flonase Allergy Relief) 1 spray intranasal Q12H furosemide 20 mg PO DAILY insulin lispro 1 sliding scale dose subcut USEASDIRECTD insulin lispro (Humalog KwikPen U-200 Insulin) subcut insulin syringe-needle U-100 As directed ipratropium-albuterol 0.5 mg-3 mg(2.5 mg base)/3 mL 3 mL inhalation QID 30 days lansoprazole 30 mg PO DAILY lisinopril 40 mg PO DAILY pregabalin 150 mg PO TID rosuvastatin 40 mg PO DAILY HPI Comments Details: Patient is a 48-year-old male with hypertension, type I insulin-dependent diabetes and hyperlipidemia who was referred from Cardiology for evaluation of osteoarthritis. He was diagnosed with type 1 diabetes in his early 20s and this has been complicated by diabetic neuropathy and Charcot joint of his feet. Subsequently he was also morbidly obese and had chronic pain involving his bilateral ankles. Patient states that he has lost over 100 lb over the last couple of years which has improved his ankle pain but it still persists. He currently follows with Orthopedics who do ankle injections every 3 months (steroid injections) and who also prescribe him Celebrex to help with the pain. Patient states he takes 200 mg twice a day and this helps his pain 80%. He does try to keep active and and also walks and is actively trying to lose more weight. 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 He denies involvement of any other joints. Previously had knee pain but got gel injections and has not had any issues in the knees since then. [facility] Medical History Obesity (BMI 35.0-39.9 without comorbidity) Bronchitis COPD (chronic obstructive pulmonary disease) Restrictive lung disease SABRINA (obstructive sleep apnea) Morbid obesity Social History Household Members: Significant Other Housing: House Alcohol intake: never Patient Tobacco Use Status: Never used Tobacco Current occupational status: disabled Current occupation: Lt handed Review of Systems Const Details: Review of Systems Constitutional: Denies fever, chills, weight loss ENT: Denies vision changes, eye pain or eye redness, dental caries, dry mouth GI: Denies nausea, vomiting, diarrhea, abdominal pain, change in BM Pulm: Denies SOB, ELDER, hemoptysis, wheezing Cards: Denies chest pain, palpitations Skin: Denies Raynaud's, rash, nail changes, photosensitivity, WIDE AREA NETWORK ENGINEER: Denies headaches, weakness, paresthesias, recurrent falls MSK: as per HPI All other systems reviewed and are unremarkable except noted above Physical Exam Vital Signs: Last Vital Signs BP 120/78 06/24/24 10:04 BMI result Body Mass Index 33.4 Physical Examination CONSTITUITIONAL Patient alert and cooperative. Well appearing and in no apparent painful distress HEENT Conjunctiva and sclera clear. ?Pupils equal round and reactive to light. ?No lymphadenopathy. ?Normal dentition. No oral or nasal ulcers noted. No evidence of discoid rash to the nancy of ears CHEST/RESPIRATORY SYSTEM Normal respiratory effort and able to speak in complete sentences. ?Clear to auscultation bilaterally. ?No crackles, rales, rhonchi, wheezes heard. CARDIAC SYSTEM Regular rate and rhythm. ?S1 and S2 heard no murmurs. ?Radial pulses intact bilaterally MSK Hands: ?Good crop consultant strength bilaterally - 5/5. ?No deformities noted. ?No synovitis noted to the MCPs, PIPs or DIPs. ?No tenderness to palpation of these joints. Wrists: ?Full range of motion at the wrists without pain. ?No tenderness to palpation or synovitis noted to the wrists. Elbows: Full range of motion without pain. No tenderness, weakness, swelling, increased warmth or erythema. Shoulders: Full range of motion without pain. No tenderness, weakness, swelling, increased warmth or erythema. Hips: Full range of motion without pain. Hip bursa: No tenderness to palpation Knees: ?Full range of motion. ?No tenderness, swelling, increased warmth or erythema.?No effusion or crepitations Ankles: Right ankle with mild swelling. Decreased range of motion at the talar and subtalar joints. No tenderness to palpation. Left ankle without any swelling. Had good range of motion at the talar and subtalar joints. ? Feet: ?Negative squeeze test. ?No tenderness to palpation or swelling of the MTPs. Tender points:??No tenderness to palpation of the neck, shoulders, chest, elbows, hips, buttocks or knees. SKIN Skin intact without rashes. Results Reviewed Results Reviewed: Right ankle x-ray done 05/2024 reviewed. Significant joint space narrowing at the tibiotalar joint with osteophytes. Indicative of moderate to severe osteoarthritis at the tibiotalar joint. Assessment & Plan Assessment & Plan (1) Osteoarthritis of ankle, right: Code(s): M19.071 - Primary osteoarthritis, right ankle and foot Category: Medical Qualifiers: Osteoarthritis type: primary Qualified Code(s): M19.071 - Primary osteoarthritis, right ankle and foot Plan: #OA Right Ankle Patient with right ankle osteoarthritis likely on a background of diabetic neuropathy and Charcot's joint. Has tried several interventions including physical therapy, topical diclofenac, gabapentin, duloxetine. Currently on Celebrex which provides relief however this is associated with increased cardiac events and his trucking supervisor is hoping for alternative treatment. We will give a trial of tramadol for 4 weeks. Had a long discussion with the patient and his stating that if tramadol is not effective then the only other solution would be a replacement of the joint. Patient is adamant that he will not replace the joint because of his risk of infection. Plan I spent 30 minutes reviewing the record and labs, seeing the patient, discussing the treatment plan and documenting in the medical record ? For next visit: Follow up tramadol efficacy Medications: New tramadol 50 mg PO BID 90 days 180 tabs 1RF pain M19.071 - Primary osteoarthritis, right ankle and foot, M19.072 - Primary osteoarthritis, left ankle and foot Coding Level of Care Code New Pt Level 3 (11170) Diagnoses Primary osteoarthritis of right ankle M19.071 Osteoarthritis type: primary
== END 2024-06-24 10:46 | disposition home or self-care (01) ==
LOC: HO.RHE 09:55
PROVIDERS: PCP Internal Medicine; Visit Provider Student in an Organized Health Care Education/Training Program
DX: M19.071 Primary osteoarthritis, right ankle and foot (principal)
CPT/HCPCS: 99203

== ENCOUNTER → 2024-06-24 09:54 | Outpatient (BNVA) | payer MEDICARE, MEDICAID, SELFPAY | PROVIDERS: PCP Internal Medicine; Visit Provider Student in an Organized Health Care Education/Training Program | DX: M19.071 Primary osteoarthritis, right ankle and foot (principal) | CPT/HCPCS: 99202 ==

== ENCOUNTER 2024-07-21 11:29 | Outpatient (AMB) | payer MEDICARE, MEDICAID, SELFPAY ==
--- NOTE | 2024-07-21 11:30 | A.OFFVIS_ITS ---
Vital Signs 07/21/24 11:33 Height 6 ft Weight 246 lb 14.684 oz BMI 33.5 BP 134/84 Blood Pressure Location Rt brachial Position Sitting Pulse 85 Pulse Source Pulse Oximeter Intake Visit Reasons: Follow up/cm Intake Note: Patient presents today for a follow-up Osteoarthritis: Methodologist Required: No Accompanied by: Self / Same As Patient Allergies codeine Allergy (Unknown, Verified 07/21/24 11:37) itching ibuprofen [IBUPROFEN] Allergy (Unknown, Verified 07/21/24 11:37) HIVES ketorolac Allergy (Unknown, Verified 07/21/24 11:37) swelling sumatriptan [From IMITREX] Allergy (Unknown, Verified 07/21/24 11:37) TACHYCARDIA bupropion [From Wellbutrin] Adverse Reaction (Severe, Verified 07/21/24 11:37) suicide thoughts prochlorperazine [From Compazine] Adverse Reaction (Unknown, Verified 07/21/24 11:37) Unknown Medication List - Last Reconciled 07/21/24 by Gosia Graff MD albuterol sulfate 90 mcg/actuation 2 puffs inhalation Q4-6H PRN [Ankle support brace As directed] Arnuity Ellipta 100 mcg/actuation (fluticasone furoate) 1 inh inhalation DAILY NS celecoxib 200 mg PO BID empagliflozin (Jardiance) 10 mg PO DAILY ferrous sulfate 325 mg PO DAILY flu vac qs 2019(4 yr up)CD(PF) mL IM fluticasone propionate 50 mcg/actuation (Flonase Allergy Relief) 1 spray intranasal Q12H furosemide 20 mg PO DAILY insulin lispro 1 sliding scale dose subcut USEASDIRECTD insulin lispro (Humalog KwikPen U-200 Insulin) subcut insulin syringe-needle U-100 As directed ipratropium-albuterol 0.5 mg-3 mg(2.5 mg base)/3 mL 3 mL inhalation QID 30 days lansoprazole 30 mg PO DAILY metoprolol succinate ER 25 mg PO DAILY pregabalin 150 mg PO TID rosuvastatin 40 mg PO DAILY sacubitril-valsartan 24-26 mg (Entresto) 1 tab PO BID HPI Comments Details: Patient is a 48-year-old male with hypertension, type I insulin-dependent diabetes and hyperlipidemia here to follow up osteoarthritis Interval History: Patient last seen 06/24/2024. At that time he was establishing care for the management of his osteoarthritis. His osteoarthritis polyarticular but mainly involving his bilateral ankles. He has diabetic neuropathy and Charcot joints with a collapsed ankle on the left. The concern was he takes Celebrex for his pain however given his cardiac issues and potential kidney issues there was hope that there are alternatives. Unfortunately gabapentin does not help, pregabalin does not help, amitriptyline does not help, Tylenol does not help. He is averse to using narcotics because he has tried them in the past and had a 1- 1 1/2 year withdrawal after they were stopped. From his withdrawal he also had alternating diarrhea and constipation with subsequent rectal prolapse and hemorrhoids. The plan after last visit was to try tramadol see if this would be a non NSAID based pain reliever Today patient states that the tramadol did not help and he tried it for 2 weeks. He also tried amitriptyline again at my request but this also was not relieving his pain and he states that he would have nights where he would cry because he was in so much pain. Has now restarted Celebrex 1 tablets a day Rheumatologic History: Establish care 05/2024 for management of osteoarthritis primarily involving his ankles. Unfortunately he had failed duloxetine, gabapentin, pregabalin, tramadol, Tylenol. Currently gets intra-articular steroids from ortho. Refuses to get ankle replacement surgery out of fear of infection complications. Current Rheumatology Medication(s): He was diagnosed with type 1 diabetes in his early 20s and this has been complicated by diabetic neuropathy and Charcot joint of his feet. Subsequently he was also morbidly obese and had chronic pain involving his bilateral ankles. Patient states that he has lost over 100 lb over the last couple of years which has improved his ankle pain but it still persists. He currently follows with Orthopedics who do ankle injections every 3 months (steroid injections) and who also prescribe him Celebrex to help with the pain. Patient states he takes 200 mg twice a day and this helps his pain 80%. He does try to keep active and and also walks and is actively trying to lose more weight. He was seen by his [facility] because of concern for his chronic Celebrex use especially in the setting of coronary artery disease and type 1 diabetes. He denies involvement of any other joints. Previously had knee pain but got gel injections and has not had any issues in the knees since then. [facility] Medical History (Updated 07/21/24 @ 13:48 by Gosia Graff MD) [facility] (current) use of non-steroidal anti-inflammatories (nsaid) Obesity (BMI 35.0-39.9 without comorbidity) Bronchitis COPD (chronic obstructive pulmonary disease) Restrictive lung disease SABRINA (obstructive sleep apnea) Morbid obesity Social History Household Members: Significant Other Housing: House Alcohol intake: never Patient Tobacco Use Status: Never used Tobacco Current occupational status: disabled Current occupation: Lt handed Review of Systems Const Details: Review of Systems Constitutional: Denies fever, chills, weight loss ENT: Denies vision changes, eye pain or eye redness, dental caries, dry mouth GI: Denies nausea, vomiting, diarrhea, abdominal pain, change in BM Pulm: Denies SOB, ELDER, hemoptysis, wheezing Cards: Denies chest pain, palpitations Skin: Denies Raynaud's, rash, nail changes, photosensitivity, FUR COMBER: Denies headaches, weakness, paresthesias, recurrent falls MSK: as per HPI All other systems reviewed and are unremarkable except noted above Physical Exam Vital Signs: Last Vital Signs Pulse 85 07/21/24 11:33 BP 134/84 07/21/24 11:33 BMI result Body Mass Index 33.5 Physical Examination CONSTITUITIONAL Patient alert and cooperative. Well appearing and in no apparent painful distress HEENT Conjunctiva and sclera clear. ?Pupils equal round and reactive to light. ?No lymphadenopathy. ?Normal dentition. No oral or nasal ulcers noted. No evidence of discoid rash to the nancy of ears CHEST/RESPIRATORY SYSTEM Normal respiratory effort and able to speak in complete sentences. ?Clear to auscultation bilaterally. ?No crackles, rales, rhonchi, wheezes heard. CARDIAC SYSTEM Regular rate and rhythm. ?S1 and S2 heard no murmurs. 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 ?No deformities noted. ?No synovitis noted to the MCPs, PIPs or DIPs. ?No tenderness to palpation of these joints. Wrists: ?Full range of motion at the wrists without pain. ?No tenderness to palpation or synovitis noted to the wrists. Elbows: Full range of motion without pain. No tenderness, weakness, swelling, increased warmth or erythema. Shoulders: Full range of motion without pain. No tenderness, weakness, swelling, increased warmth or erythema. Hips: Full range of motion without pain. Hip bursa: No tenderness to palpation Knees: ?Full range of motion. ?No tenderness, swelling, increased warmth or erythema.?No effusion or crepitations Ankles: Right ankle with mild swelling. Decreased range of motion at the talar and subtalar joints. No tenderness to palpation. Left ankle without any swelling. Had good range of motion at the talar and subtalar joints. ? Feet: ?Negative squeeze test. ?No tenderness to palpation or swelling of the MTPs. Tender points:??No tenderness to palpation of the neck, shoulders, chest, elbows, hips, buttocks or knees. SKIN Skin intact without rashes. Assessment & Plan Assessment & Plan (1) Osteoarthritis of left ankle: Code(s): M19.072 - Primary osteoarthritis, left ankle and foot Category: Medical Qualifiers: Osteoarthritis type: primary Qualified Code(s): M19.072 - Primary osteoarthritis, left ankle and foot Plan: #Bilateral ankle OA Patient with polyarticular OA specifically bilateral ankle OA. Unfortunately at this time he has not responded to any other conservative managements regarding his OA. Had a long discussion with the patient about risks and benefits of Celebrex versus narcotics such as oxycodone/Percocet. Given his history of withdrawal he is very reluctant to start a narcotic. He is willing to continue the Celebrex and we will do frequent monitoring of his kidneys and check ins with his [facility] [employer] [facility]. RTC in 4 months (2) Osteoarthritis of ankle, right: Code(s): M19.071 - Primary osteoarthritis, right ankle and foot Category: Medical Qualifiers: Osteoarthritis type: primary Qualified Code(s): M19.071 - Primary osteoarthritis, right ankle and foot Plan: . 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 non-steroidal anti-inflammatories (NSAID) Category: Medical Plan: #Long-term Use of NSAIDs Discussed with patient the benefits and risk of NSAIDs for managing this patient's osteoarthritis Benefits include: - Reduced the pain, improved mobility, and increased participation in activities Risks include: - GI upset, potential also worsening or formation (especially in patients > 65 years old) - renal impairment especially with concomitant type 1 diabetes Recommended using proton pump inhibitors (PPIs) for the duration of NSAID use to reduce the risk of gastric ulcers Plan I spent 30 minutes reviewing the record and labs, seeing the patient, discussing the treatment plan and documenting in the medical record ? Orders: Orders Protein Creatinine Ratio, Ur Today M19.071 - Primary osteoarthritis, right ankle and foot, M19.072 - Primary osteoarthritis, left ankle and foot Comprehensive Met. Panel Today M19.071 - Primary osteoarthritis, right ankle and foot, M19.072 - Primary osteoarthritis, left ankle and foot UA w Microscopic Today M19.071 - Primary osteoarthritis, right ankle and foot, M19.072 - Primary osteoarthritis, left ankle and foot Medications: Discontinued amitriptyline Take 1 tablet at bedtime for 3 weeks and then increase to 2 tablets at bedtime (if tolerating the 1 tablet) Discontinued Reason: Doctor's Order 25 mg PO BEDTIME 90 tabs 0RF G89.29 - Other chronic pain, M19.071 - Primary osteoarthritis, right ankle and foot, M19.072 - Primary osteoarthritis, left ankle and foot tramadol Discontinued Reason: Doctor's Order 50 mg PO BID 90 days 180 tabs 1RF pain M19.071 - Primary osteoarthritis, right ankle and foot, M19.072 - Primary osteoarthritis, left ankle and foot Coding Level of Care Code Est Pt Level 4 (37357) Diagnoses Primary osteoarthritis of left ankle M19.072 Osteoarthritis type: primary Primary osteoarthritis of right ankle M19.071 Osteoarthritis type: primary 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
[2024-07-21 11:33] VITALS: BP 134/84; PULSE 85; BMI 33.5
== END 2024-07-21 12:35 | disposition home or self-care (01) ==
PROVIDERS: PCP Internal Medicine; Visit Provider Student in an Organized Health Care Education/Training Program
DX: M19.072 Primary osteoarthritis, left ankle and foot (principal); M19.071 Primary osteoarthritis, right ankle and foot; Z79.1 Long term (current) use of non-steroidal anti-inflammatories (NSAID)
CPT/HCPCS: 99214

== ENCOUNTER → 2024-07-21 11:29 | Outpatient (BNVA) | payer MEDICARE, MEDICAID, SELFPAY | PROVIDERS: PCP Internal Medicine; Visit Provider Student in an Organized Health Care Education/Training Program ==

== ENCOUNTER 2024-07-21 12:23 | Outpatient (REF) | payer MEDICARE, MEDICAID, SELFPAY ==
[2024-07-21 12:57] LABS: Appearance Urine Clear; Color Urine Yellow; Glucose Urine UA >=1000 mg/dL (Negative); Leukocyte Esterase Urine Negative (Negative); Nitrite Urine Negative (Negative); UMIC TRIGGER UA YES; Urine Blood Negative (Negative); Urine Ketones Negative (Negative); Urine Protein Negative (Neg-Trace)
[2024-07-21 12:59] LABS: Bacteria Urine None Seen (None Seen); Hyaline Casts Urine 0-2 /LPF (0-2); RBC Urine 0-2 /HPF (0-2); Squamous Epithelial Cell Urine 0-2 /HPF (0-2); WBC Urine 0-5 /HPF (0-5)
[2024-07-21 13:27] LABS: Creatinine Urine 25.67 mg/dL; Total Protein Urine Random < 7 mg/dL (<12)
[2024-07-21 13:48] LABS: Alanine Aminotransferase 31 U/L (0-40); Albumin Level 4.1 g/dL (3.5-5.0); Alkaline Phosphatase 97 U/L (39-117); Anion Gap 14 (12-20); Aspartate Amino Transferase 40 U/L (5-37); Bilirubin Total 0.5 mg/dL (0.0-1.0); Blood Urea Nitrogen 16 mg/dL (9-16); Calcium 9.7 mg/dL (8.4-10.2); Carbon Dioxide 31 mmol/L (22-29); Chloride 101 mmol/L (96-108); Estimated Glomerular Filt Rate > 60; Glucose Random 63 mg/dL (60-115); Potassium 3.9 mmol/L (3.3-5.1); Sodium 142 mmol/L (135-145); Total Protein 6.8 g/dL (6.5-8.0)
== END 2024-07-21 12:24 | disposition home or self-care (01) ==
LOC: HO.10HDL 12:23
PROVIDERS: Visit Provider Student in an Organized Health Care Education/Training Program
DX: M19.071 Primary osteoarthritis, right ankle and foot (principal); M19.072 Primary osteoarthritis, left ankle and foot; Z79.1 Long term (current) use of non-steroidal anti-inflammatories (NSAID)
CPT/HCPCS: 36415; 80053; 81001; 82570; 84156; 99212

== ENCOUNTER 2024-08-26 10:41 | Outpatient (AMB) | payer MEDICARE, MEDICAID, SELFPAY ==
[2024-08-26 10:48] VITALS: BP 120/80; PULSE 70; O2SAT 96; BMI 33.0
--- NOTE | 2024-08-26 10:48 | A.OFFVIS_ITS ---
Vital Signs 08/26/24 10:48 Height 6 ft Weight 243 lb 9.773 oz BMI 33.0 BP 120/80 Blood Pressure Location Lt brachial Position Sitting Pulse 70 Pulse Source Pulse Oximeter Pulse Oximetry (%) 96 Oxygen Delivery Method Room Air Intake Visit Reasons: sabrina Intake Note: pt is here for follow up and states he is feeling good, having issues with his heart and being treated by [facility] but he is snoring. Political Reporter Required: No Allergies codeine Allergy (Unknown, Verified 08/26/24 11:05) itching ibuprofen [IBUPROFEN] Allergy (Unknown, Verified 08/26/24 11:05) HIVES ketorolac Allergy (Unknown, Verified 08/26/24 11:05) swelling sumatriptan [From IMITREX] Allergy (Unknown, Verified 08/26/24 11:05) TACHYCARDIA bupropion [From Wellbutrin] Adverse Reaction (Severe, Verified 08/26/24 11:05) suicide thoughts prochlorperazine [From Compazine] Adverse Reaction (Unknown, Verified 08/26/24 11:05) Unknown Medication List - Last Reconciled 08/26/24 by Amish Smith MD albuterol sulfate 90 mcg/actuation 2 puffs inhalation Q4-6H PRN [Ankle support brace As directed] celecoxib 200 mg PO BID empagliflozin (Jardiance) 10 mg PO DAILY ferrous sulfate 325 mg PO DAILY flu vac qs 2019(4 yr up)CD(PF) mL IM fluticasone furoate 100 mcg/actuation (Arnuity Ellipta) 1 inh inhalation DAILY PRN fluticasone propionate 50 mcg/actuation (Flonase Allergy Relief) 1 spray intranasal Q12H furosemide 20 mg PO DAILY PRN insulin lispro 1 sliding scale dose subcut USEASDIRECTD insulin lispro (Humalog KwikPen U-200 Insulin) subcut insulin syringe-needle U-100 As directed ipratropium-albuterol 0.5 mg-3 mg(2.5 mg base)/3 mL 3 mL inhalation QID 30 days lansoprazole 30 mg PO DAILY metoprolol succinate ER 25 mg PO DAILY pregabalin 150 mg PO TID pseudoephedrine HCl ER (Sudafed 12 Hour) 120 mg PO Q12H rosuvastatin 40 mg PO DAILY sacubitril-valsartan 24-26 mg (Entresto) 1 tab PO BID Do you need a note to return to daycare/school/sports/work: No HPI HPI sabrina: Details: 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 HE IS A CASE OF OBSTRUCTIVE SLEEP APNEA AND USES CPAP REGULARLY EVERY NIGHT. ALSO HAS MILD BRONCHIAL ASTHMA WHICH REMAINS WELL CONTROLLED. HE IS VERY HAPPY WITH THE USE OF CPAP. HE DOES HAVE SOME RESIDUAL SNORING BUT SLEEP IS GOOD. HE REMAINS WELL MOTIVATED TO LOSE MORE WEIGHT. 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 (nsaid) Obesity (BMI 35.0-39.9 without comorbidity) Bronchitis COPD (chronic obstructive pulmonary disease) Restrictive lung disease SABRINA (obstructive sleep apnea) Morbid obesity Social History Household Members: Significant Other Housing: House Alcohol intake: never Patient Tobacco Use Status: Never used Tobacco Current occupational status: disabled Current occupation: Lt handed Review of Systems Const All systems reviewed & are unremarkable except as noted in HPI and below Eyes Reports no additional complaints ENT Reports no additional complaints Card Denies chest pain, Denies irregular heart rhythm and Denies leg edema Resp Reports as per HPI GI Reports no additional complaints Reports no additional complaints Musc Reports back pain and Reports muscle weakness Skin/Breast Reports system reviewed and no additional complaints, except as documented Neuro Reports Neuro-related abnormal movements and Reports other (Case of posttraumatic paraparesis) Psych Reports no additional complaints Endo Reports other (Diabetes mellitus with labile blood sugars) Physical Exam Vital Signs: Last Vital Signs Pulse 70 08/26/24 10:48 BP 120/80 08/26/24 10:48 Pulse Ox 96 08/26/24 10:48 Oxygen Delivery Method Room Air 08/26/24 10:48 BMI result Body Mass Index 33.0 Const General: comfortable, no acute distress, alert and awake Orientation/consciousness: patient oriented x3 HEENT Head: Yes normal to inspection General nose exam: No nasal polyps present and No nasal discharge present Face and sinus: Yes sinuses nontender Mouth: oropharynx abnormals (Very crowded, Mallampati class 4) Throat: Yes posterior oropharynx normal Eyes General: appearance normal, both eyes and all related structures Neck Neck: Yes normal visual inspection, Yes no lymphadenopathy, Yes trachea midline, Yes no JVD and Yes other (Short and obese) Thyroid: Thyroid normal Chest Chest palpation & inspection: normal inspection of the chest, normal palpation of entire chest wall and no tenderness Resp Other: Percussion note resonant, breath sounds are distant and especially decreased over the bibasilar areas. No wheezes, rhonchi or crepitations are heard today. He has relatively small lung volumes but both lungs are clear. Cardio Palpation: normal PMI Rate: regular rate Rhythm: regular rhythm Heart sounds: no gallops and no murmurs GI Palpation (GI): Soft to palpation, nontender, No hepatosplenomegaly present, no masses and Other GI palpation findings present (Abdomen is quite obese and protuberant) Auscultation: normal bowel sounds Back/Spine/Pelvis Thoracic/Lumbar Spine: thoracic and lumbar spine normal to inspection Skin General skin exam: no rashes or lesions noted Neuro General: patient oriented x3, No gait normal (Not able to walk,he uses quad cane in the house,motorized chair for outdoor) and no focal motor deficits Cranial nerves: Yes CN's II-XII intact bilaterally Extrem General: Yes normal to inspection, Yes no calf tenderness and Yes edema (Mild dependent edema of the legs) Psych Appearance: grossly normal and well kempt Speech and movement: Normal speech and movement present Results Reviewed Results Reviewed: COMPLIANCE REPORT FOR THE LAST 30 NIGHTS IS REVIEWED. HIS USAGE HAS BEEN 100% OF THE NIGHTS WITH AVERAGE USE IT PER NIGHT 7 HOURS 14 MINUTES WHICH IS EXCELLENT.\ HE HAS NO ISSUE WITH THE CPAP MASK OR CPAP DEVICE AT THIS TIME. HE DID QUESTION IF HE WOULD STILL NEED TO USE THE CPAP. Assessment & Plan Assessment & Plan (1) Obesity (BMI 35.0-39.9 without comorbidity): Comment: He has history of morbid obesity but over the last few years he has gradually lost more than 100 lb of weight. He is a known to have gastro paresis, and is not able to eat large portions of food at a time. He continues to lose weight, slowly Code(s): E66.9 - Obesity, unspecified Category: Medical Plan: Commended for controlling his weight, and advise that he should continue to lose more weight. Goal should be 200 lb (2) SABRINA (obstructive sleep apnea): Comment: KNOWN CASE OF SEVERE SABRINA . HE IS VERY HAPPY AND DOING WELL WITH HIS NEW CPAP, WITH PRESSURE OF 10 CM. COMPLIANCE IS VERY GOOD Code(s): G47.33 - Obstructive sleep apnea (adult) (pediatric) Category: Medical Plan: Commended for good compliance. * I did discuss with him that when his weight down to 200 lb, we can do another sleep study to see if he still has some residual sleep apnea are not. (3) COPD (chronic obstructive pulmonary disease): Comment: He carries diagnosis of mild bronchial asthma/COPD, but it seems to be well controlled at this time. Code(s): J44.9 - Chronic obstructive pulmonary disease, unspecified Category: Medical Plan: OK to continue using Arnuity-101 inhalation daily And use albuterol 2 puffs Q 4-6 hours only p.r.n. (4) Restrictive lung disease: Comment: SECONDARY TO MORBID OBESITY, WITH SIGNIFICANT WEIGHT LOSS HIS RESTRICTIVE COMPONENT HAS IMPROVED . AND THE SPIROMETRY TODAY SHOWS THAT HIS FVC IS NORMAL. Code(s): J98.4 - Other disorders of lung Category: Medical Plan: AGAIN ADVISED TO KEEP ON DOING DEEP BREATHING EXERCISES 2 TO 3 TIMES A DAY . (5) Allergic rhinitis: Comment: He has chronic nasal congestion with postnasal drip. Controlled with use of Flonase and also he uses, pseudo ephedrine 120 mg Q 12 hours almost on a regular basis. Code(s): J30.9 - Allergic rhinitis, unspecified Category: Medical Plan: I told him that is OK to use Flonase nasal spray 2 spray in each nostril daily. But he should try to use pseudo ephedrine only p.r.n., and not on a regular basis. He seems to be dependent on this and say is if he does not use he starts having runny nose. Medications: Changed From Arnuity Ellipta 100 mcg/actuation (fluticasone furoate) 1 inh inhalation DAILY 30 ea 2RF NS To fluticasone furoate 100 mcg/actuation (Arnuity Ellipta) 1 inh inhalation DAILY PRN Coding Level of Care Code Est Pt Level 3 (46661) Diagnoses Obesity (BMI 35.0-39.9 without comorbidity) E66.9 SABRINA (obstructive sleep apnea) G47.33 COPD (chronic obstructive pulmonary disease) J44.9 Restrictive lung disease J98.4 Allergic rhinitis J30.9
--- OUTSIDE RECORDS SUMMARY | 2024-08-26 11:16 | XMS_ITS | Continuity of Care Document ---
Author Organization [facility] Address [address] [place] [id number]- [facility] Name Relationship Address Phone DEAL, MARIANO unrelated friend Unknown Unavailable BI, MARIAH unrelated friend Unknown Unavailab le LEWIS, CHRISTOFER Personal Relationship Unknown Damari vailable LEWIS, CHRISTOFER Personal Relationship Unknown Damari vailable LEWIS, MARIAH spouse Unknown Unavailable JASSO, MÓNICA Other Unknown Unavailable ANTHONY, HELGA unrelated friend Unknown Unavailab le Care Team Providers Care Burial Agent Name Role Phone Raghav CARDENAS, Doretha Pierre Primary Care Physician [phone] Encounter [facility] [place] Date(s): 07/21/24 - 08/20/24 [facility] [address] [place] [address]- Encounter Type: Triage Allergies, Adverse Reactions, Alerts Substance Criticality Severity Reaction Reaction Severity Status codeine 1 terrible itching A ctive NSAIDs can't take-micah mful to my kidneys Active Toradol can't take-micah mful to my kidneys Active Compazine severe muscle spasm Active Motrin can't take- nuñez rmful to my kidneys Active Imitrex unknown reaction A ctive Wellbutrin suicidal Active Tylenol affects Blood s ugar reading r/t being a diabetic. Active 1Patient has tolerated Fentanyl and Morphine in the past. Immunizations Given and Recorded Vaccine Date Status Refusal Reason influenza virus vaccine, inactivated 05/03/23 Polo rded influenza virus vaccine, inactivated 05/01/22 Polo rded influenza virus vaccine, inactivated 06/26/21 Polo rded influenza virus vaccine, inactivated 06/22/18 Polo rded influenza virus vaccine, inactivated 04/25/16 Polo rded influenza virus vaccine, inactivated 04/18/11 Polo rded influenza virus vaccine, inactivated 05/02/10 Polo rded influenza virus vaccine, inactivated 06/07/08 Give n [id number] 12y+ bivalent booster vax 09/05/22 Recorded SARS-CoV-2 mRNA ([id number]) vax 02/23/22 Recorded SARS-CoV-2 (COVID-19) mRNA BNT-162b2 vac 08/03/21 Recorded SARS-CoV-2 (COVID-19) mRNA BNT-162b2 vac 01/04/21 Recorded SARS-CoV-2 (COVID-19) mRNA BNT-162b2 vac 12/14/20 Recorded pneumococcal 13-valent vaccine 06/21/15 Recorded Tet/Diphth/Acel, Pertussis (oldterm) 12/15/07 Give n Influenza Virus Vaccine (oldterm) 1 06/23/07 Given Influenza Virus Vaccine (oldterm) 06/20/06 Given Pneumococcal Vaccine (oldterm) 2 08/27/06 Given Pneumococcal Vaccine (oldterm) 3 10/28/05 Given 1Admin Note: SANOFI PASTEUR 2Result Comment: [id number] and expiration 1175F, [id number] 3Result Comment: Lot # [id number] January 21, 2007 Medications Admelog 100 units/mL injectable solution See Instructions, USE TO INFUSE INSULIN CONTINUOUSLY; MAX DAILY DOSE OF 120 UNITS, # 110 mL, 3 Refills, Maintenance, 08/04/24 9:54:00 AM EST, [facility], 183, cm, 07/13/24 14:26:00 EST, Height, 107, kg, 07/13/24 14:26:00 EST, Dry Weight Start Date: 08/04/24 Status: Ordered Quantity: 110.0 Unit: mL Repeat number: 1 Airborne Gummies 3 tablet, Chew, Daily, 0 Refills, Maintenance, 10/31/23 9:21:00 AM EST, Partial fill upon patient request if the prescription is for a schedule II opioid drug. Start Date: 10/31/23 Status: Ordered Repeat number: 1 albuterol-ipratropium 3 mg-0.5 mg/3 ml inhalation solution 3 mL, Neb, 4 times a day, # 360 mL, 5 Refills, Maintenance, 06/06/20 1:49:00 PM EDT, Inhalation Solution, [id number], 3 mL Neb 4 times a day,x30 days, 183, cm, 06/03/20 22:02:00 EDT,Height, 155.9, kg, 06/03/20 22:02:00 EDT, Dry Weight Start Date: 06/06/20 Stop Date: 12/03/20 Status: Ordered Quantity: 360.0 Unit: mL Repeat number: 6 Ascorbic Acid = 1,000 mg, By Mouth, Daily, 0 Refills, Maintenance, 12/29/20 11:14:00 AM EDT, Partial fill upon patient request if the prescription is for a schedule II opioid drug. Start Date: 12/29/20 Status: Ordered Repeat number: 1 Basaglar KwikPen 100 units/mL subcutaneous solution = 60 units, Subcutaneous Infusion, Daily, use in case of pump failure to inject 60 units daily, # 18 mL, 11 Refills, Maintenance, 09/22/23 12:41:00 PM EST, [facility], Partial fill upon patient request if the prescription is for a schedule II opioid drug., 182, cm, 08/06/23 12:45:00EST, Height Start Date: 09/22/23 Status: Ordered Quantity: 18.0 Unit: mL Repeat number: 12 Indication: Type 1 diabetes mellitus with diabetic autonomic (poly)neuropathy CeleBREX 200 mg oral capsule 1 capsule = 200 mg, By Mouth, 2 times a day, 0 Refills, Maintenance, 10/09/22 1:09:00 PM EST, Capsule, Partial fill upon patient request if the prescription is for a schedule II opioid drug. Start Date: 10/09/22 Status: Ordered Repeat number: 1 CoQ10 100 mg oral capsule 3 capsules, By Mouth, Daily, 0 Refills, Maintenance, 10/09/22 1:12:00 PM EST, Partial fill upon patient request if the prescription is for a schedule II opioid drug. Start Date: 10/09/22 Status: Ordered Repeat number: 1 Cranberry 30,000 mg., By Mouth, Daily, 0 Refills, Maintenance, 12/29/20 11:13:00 AM EDT, Partial fill upon patient request if the prescription is for a schedule II opioid drug. Start Date: 12/29/20 Status: Ordered Repeat number: 1 Dexcom G7 Sensor Dexcom G7 Sensor, See Instructions, # 3 each, Refills 11, Tot. Refills 11, Maintenance, Use as directed for Diabetes Control, 11/05/23 2:03:00 PM EDT, Supply, 184, cm, 11/05/23 13:03:00 EDT, Height, 122.27, kg, 10/03/23 22:06:00 EST, Dry Weight Start Date: 11/05/23 Status: Ordered Quantity: 3.0 Unit: each Repeat number: 12 Indication: Type 1 diabetes mellitus with diabetic autonomic (poly)neuropathy Dexcom G7 Sensor Dexcom G7 Sensor, See Instructions, # 9 each, Refills 3, Tot. Refills 3, Maintenance, Use as directed for Diabetes Control. change every 10 days. 90 days supplies, 05/19/24 1:52:00 PM EDT, Supply, 184, cm, 05/19/24 13:13:00 EDT, Height, 124.8, kg, 01/26/24 15:37:00 EDT, Dry Weight Start Date: 05/19/24 Status: Ordered Quantity: 9.0 Unit: each Repeat number: 4 Indication: Type 1 diabetes mellitus with diabetic autonomic (poly)neuropathy Entresto 24 mg-26 mg oral tablet 1 tablet, By Mouth, 2 times a day, # 60 tablet, 0 Refills, Maintenance, 07/13/24 6:09:00 AM EST, Tablet, Partial fill upon patient request if the prescription is for a schedule II opioid drug. Start Date: 07/13/24 Status: Ordered Quantity: 60.0 Unit: tablet Repeat number: 1 erythromycin 250 mg oral tablet 1/2 tablet, By Mouth, Every 4 hours, may take with food to minimize abdominal discomfort, # 270 tablet, 1 Refills, Maintenance, 01/05/24 1:50:00 PM EDT, Tablet, [facility], Partial fill upon patient request if the prescription is for a schedule II opioid drug., 184, cm, 01/05/24 13:12:00 EDT, Height, 127.5, kg, 11/17/23 12:46:00 EDT, Dry Weight Start Date: 01/05/24 Stop Date: 07/03/24 Status: Ordered Quantity: 270.0 Unit: tablet Repeat number: 2 Fish Oil 500 mg oral capsule 1 capsule = 500 mg, By Mouth, Daily, 0 Refills, Maintenance, 10/09/22 1:14:00 PM EST, Partial fill upon patient request if the prescription is for a schedule II opioid drug. Start Date: 10/09/22 Status: Ordered Repeat number: 1 Mary Jane Dye Two Pack 1 mg/0.2 mL subcutaneous solution See Instructions, INJECT 1MG SUBCUTANEOUSLY ONCE ONLY FOR EMERGENCY/ UNCONSCIOUS. TO BE GIVEN BY FAMILY MEMBER. CALL 911 IF ADMINISTERING, # 0.4 mL, 5 Refills, Maintenance, 05/14/24 6:19:00 AM EDT, [facility], 184, cm, 04/22/24 13:48:00 EDT, Height, 124.8, kg, 01/26/24 15:37:00 EDT,Dry Weight Start Date: 05/14/24 Status: Ordered Quantity: 0.4 Unit: mL Repeat number: 1 Jardiance 10 mg oral tablet 1 tablet = 10 mg, By Mouth, Daily in AM, # 30 tablet, 0 Refills, Maintenance, 07/13/24 6:09:00 AM EST, Tablet, Partial fill upon patient request if the prescription is for a schedule II opioid drug. Start Date: 07/13/24 Status: Ordered Quantity: 30.0 Unit: tablet Repeat number: 1 Ketostix See Instructions, # 1 each, Refills 11, Tot. Refills 11, Maintenance, use as directed to check for ketones. E10.9 Type 1 Diabetes Mellitus, 06/01/21 12:11:00 PM EDT, Supply, 182, cm, 04/24/21 10:42:00EDT, Height, 166.4, kg, 11/22/20 23:50:00 EDT, Dry Weight Start Date: 06/01/21 Stop Date: 05/27/22 Status: Ordered Quantity: 1.0 Unit: each Repeat number: 12 Lyrica 150 mg oral capsule 1 capsule = 150 mg, By Mouth, 3 times a day, # 90 capsule, 0 Refills, Maintenance, 05/21/23 10:45:00AM EDT, Capsule, Partial fill upon patient request if the prescription is for a schedule II opioid drug. Start Date: 05/21/23 Status: Ordered Quantity: 90.0 Unit: capsule Repeat number: 1 Misc Rx 1, tablet, By Mouth, Daily, Refills 0, Maintenance, OCUVITE, 10/31/23 9:22:00 AM EST, Supply Start Date: 10/31/23 Status: Ordered Repeat number: 1 Misc Rx 7,500 mg, By Mouth, Daily, Refills 0, Maintenance, [facility], 10/31/23 9:26:00 AM EST, Supply Start Date: 10/31/23 Status: Ordered Repeat number: 1 Misc Rx 750 mg., By Mouth, Daily, Refills 0, Maintenance, CALCIUM, 10/31/23 9:17:00 AM EST, Supply Start Date: 10/31/23 Status: Ordered Repeat number: 1 Misc Rx 2,200 mg, By Mouth, Daily, Refills 0, Maintenance, TUMERIC, 10/31/23 9:19:00 AM EST, Supply Start Date: 10/31/23 Status: Ordered Repeat number: 1 Misc Rx 325 mg, By Mouth, Daily, Refills 0, Maintenance, FESO4, 10/31/23 9:20:00 AM EST, Supply Start Date: 10/31/23 Status: Ordered Repeat number: 1 Multivitamin 1 tablet, By Mouth, Daily, 0 Refills, Maintenance, 06/03/20 10:14:00 PM EDT Start Date: 06/03/20 Status: Ordered Repeat number: 1 mupirocin 2% topical ointment See Instructions, APPLY TOPICALLY THREE TIMES A DAY FOR 10 DAYS, # 22 Gm, 1 Refills, Maintenance, 01/21/24 11:49:00 AM EDT, [facility], 22, APPLY TOPICALLY THREE TIMES A DAY FOR 10 DAYS, 184, cm, 01/21/24 11:43:00 EDT, Height, 127.5, kg, 11/17/23 12:46:00 EDT, Dry Weight Start Date: 01/21/24 Status: Ordered Quantity: 22.0 Unit: g Repeat number: 1 Osteo Bi-Flex 2 tabs, By Mouth, Daily, 0 Refills, Maintenance, 10/31/23 9:16:00 AM EST, Partial fill upon patient request if the prescription is for a schedule II opioid drug. Start Date: 10/31/23 Status: Ordered Repeat number: 1 Pen [place], 31 G x 5 mm BD Ultra Fine III See Instructions, # 300 each, Refills 11, Tot. Refills 11, Maintenance, Use to inject insulin up to8 times daily. E10.65., 11/21/21 10:36:00 AM EDT, Supply, 182, cm, 07/25/21 13:54:00 EST, Height, 166.4, kg, 11/22/20 23:50:00 EDT, Dry Weight Start Date: 11/21/21 Stop Date: 11/16/22 Status: Ordered Quantity: 300.0 Unit: each Repeat number: 12 rosuvastatin 40 mg oral tablet 1 tablet = 40 mg, By Mouth, Daily at bedtime, # 90 tablet, 0 Refills, Maintenance, 10/09/22 1:09:00 PM EST, Tablet, Partial fill upon patient request if the prescription is for a schedule II opioid drug. Start Date: 10/09/22 Status: Ordered Quantity: 90.0 Unit: tablet Repeat number: 1 Tandem Truesteel Infusion sets Tandem Truesteel Infusion sets, See Instructions, # 45 each, Refills 4, Tot. Refills 4, Maintenance, Use infusion set to infuse insulin via insulin pump continuously, change infusion set every 2 daysd/t insulin requirements, E10. 65, 06/22/21 11:37:00 AM EDT, Supply Start Date: 06/22/21 Status: Ordered Quantity: 45.0 Unit: each Repeat number: 5 Ventolin HFA 108 mcg/inh inhalation aerosol with adapter 1 puffs, Inhalation, 4 times a day, PRN for wheezing, # 8 Gm, 0 Refills, Maintenance, 06/03/20 10:09:00 PM EDT, Aerosol Start Date: 06/03/20 Status: Ordered Quantity: 8.0 Unit: g Repeat number: 1 Vitamin B12 = 1,000 mcg, By Mouth, Daily, 0 Refills, Maintenance, 10/31/23 9:29:00 AM EST, Partial fill upon patient request if the prescription is for a schedule II opioid drug. Start Date: 10/31/23 Status: Ordered Repeat number: 1 Vitamin D3 1000 intl units oral capsule 1 capsule = 25 mcg, By Mouth, Daily, # 100 capsule, 0 Refills, Maintenance, 10/09/22 1:13:00 PM EST,Capsule, Partial fill upon patient request if the prescription is for a schedule II opioid drug. Start Date: 10/09/22 Status: Ordered Quantity: 100.0 Unit: capsule Repeat number: 1 Vitamin K2 100 mcg oral tablet 1 tablet = 100 mcg, By Mouth, Daily, # 100 tablet, 0 Refills, Maintenance, 10/31/23 9:19:00 AM EST, Tablet, Partial fill upon patient request if the prescription is for a schedule II opioid drug. Start Date: 10/31/23 Status: Ordered Quantity: 100.0 Unit: tablet Repeat number: 1 zinc (as gluconate) 50 mg oral tablet 1 tablet = 50 mg, By Mouth, Daily, # 30 tablet, 0 Refills, Maintenance, 10/31/23 9:28:00 AM EST, Tablet, Partial fill upon patient request if the prescription is for a schedule II opioid drug. Start Date: 10/31/23 Status: Ordered Quantity: 30.0 Unit: tablet Repeat number: 1 Problem List Condition Confirmation Course Effective Dates Status Health Status Informant Anxiety Confirmed Active Charcot ankle Confirmed Active Diastolic congestive heart failure Confirmed Active Obesity hypoventilation syndrome Confirmed Active Diabetic gastroparesis associated with type 1 diabetes mellitus Confirmed Active Hypercholesterolemia Confirmed Active Hypertension Confirmed Active Moderate asthma without complication Confirmed Active Moderate depressive episode Confirmed Active Obese class I Confirmed Active OCD (obsessive compulsive disorder) Confirmed Active Obstructive sleep apnea Confirmed Active Type 1 diabetes mellitus with peripheral autonomic neuropathy Confirmed Active Venous insufficiency Confirmed Active Social History Social History Type Response Smoking Status Never smoker; Tobacc o user in household: No entered on: 06/13/14 Sex Sex Representation Male (finding) Patient Care team information Care Team Personnel Name: Natalie Armijo RN Position: [facility] RN Member Role: Primary Care Nurse Name: Yoana uBllock RN Position: [facility] ED RN W/OE and Tasks Member Role: Primary Care Nurse Name: Laura Lamb RN Position: [facility] SN RN Member Role: Primary Care Nurse Name: Loly Arenas NP Position: [facility] Outreach Member Role: Primary Care Nurse Address: [address] [place] [address]- [place] Telecom: Name: Gabriele Gifford MD Position: [facility] Renal MD Member Role: Lifetime Consulting Physician Address: [address] [facility] [address] [facility] [place] [address]- Telecom: Name: Doretha Avilez MD Position: [facility] Physician - Primary Care Member Role: PCP Address: [facility] [place] [address]- Telecom: Name: Mary Solis RN Position: [facility] OB RN Member Role: Primary Care Nurse Name: Kristina Parker RN Position: [facility] RN Member Role: Primary Care Nurse Name: Mir Parada Position: [facility] Outreach Member Role: Lifetime Consulting Physician Name: Miguel Beltran RN Position: [facility] RN Member Role: Primary Care Nurse Name: Barbara Blanca RN Position: [facility] RN Member Role: Primary Care Nurse Care Team Related Persons Name: MARIAH SAUCEDO Name: MARIAH PAT Name: MÓNICA JASSO Insurance Providers Guarantor name: CHRISTOFER SAUCEDO Health Plan Information #: 1 Payer: MEDICARE PART B OUTPT Member Number: NA Policy Number: NA Group Number: NA Health Plan Information #: 2 Payer: [facility] Member Number: NA Policy Number: NA Group Number: NA
--- OUTSIDE RECORDS SUMMARY | 2024-08-26 11:16 | XMS_ITS | Continuity of Care Document ---
Author Organization [facility] Address [address] [place] [address]- Care Team Providers Care Life Skills Specialist Name Role Phone Raghav CARDENAS, Doretha Pierre Primary Care Physician Encounter [facility] [place] Date(s): 07/12/24 - 08/11/24 [facility] [address] [place] [address]- Encounter Type: Triage Allergies, Adverse Reactions, Alerts Substance Criticality Severity Reaction Reaction Severity Status Motrin can't take- nuñez rmful to my kidneys Active NSAIDs can't take-micah mful to my kidneys Active codeine 1 terrible itching A ctive Toradol can't take-micah mful to my kidneys Active Compazine severe muscle spasm Active Imitrex unknown reaction A ctive Wellbutrin [...] influenza virus vaccine, inactivated 06/07/08 Give n [id number] 12y+ bivalent booster vax 09/05/22 Recorded SARS-CoV-2 mRNA ([id number]) vax 02/23/22 Recorded SARS-CoV-2 (COVID-19) mRNA BNT-162b2 [...] Given 1Admin Note: SANOFI PASTEUR 2Result Comment: [id number] and expiration 1175F, [id number] 3Result Comment: Lot # [id number] January 21, 2007 Medications Admelog 100 units/mL injectable solution See Instructions, USE TO INFUSE INSULIN CONTINUOUSLY; MAX DAILY DOSE OF 120 UNITS, # 110 mL, 3 Refills, Maintenance, 08/04/24 9:54:00 AM EST, [facility], 183, cm, 07/13/24 14:26:00 [...] Maintenance, 06/06/20 1:49:00 PM EDT, Inhalation Solution, [facility][id number], 3 mL Neb 4 times a day,x30 [...] 11 Refills, Maintenance, 09/22/23 12:41:00 PM EST, [facility], Partial fill upon patient [...] Refills, Maintenance, 01/05/24 1:50:00 PM EDT, Tablet, [facility], Partial fill upon patient [...] a schedule II opioid drug. Start Date: 2/15/23 Status: Ordered Repeat number: 1 Gvoke HypoPen Two Pack 1 mg/0.2 mL subcutaneous solution See Instructions, INJECT 1MG SUBCUTANEOUSLY ONCE ONLY FOR EMERGENCY/ UNCONSCIOUS. TO BE GIVEN BY FAMILY MEMBER. CALL 911 IF ADMINISTERING, # 0.4 mL, 5 Refills, Maintenance, 05/14/24 6:19:00 AM EDT, [facility], 184, cm, 04/22/24 13:48:00 [...] 1 Refills, Maintenance, 01/21/24 11:49:00 AM EDT, [facility], 22, APPLY TOPICALLY THREE [...] 10/31/23 Status: Ordered Repeat number: 1 Pen [place], 31 G x 5 mm BD Ultra [...] Care team information Care Team Personnel Name: Zofia ALEGRIA, Natalie Barone Position: [facility] RN Member Role: Primary Care Nurse Name: Yoana Bullock RN Position: [facility] ED RN W/OE and Tasks Member Role: Primary Care Nurse Name: Laura Lamb RN Position: [facility] SN RN Member Role: Primary Care Nurse Name: Loly Arenas NP Position: [facility] Outreach Member Role: Primary Care Nurse Address: [address] [place] [address]- Telecom: Name: Gabriele Gifford MD Position: [facility] Renal MD Member Role: Lifetime Consulting Physician Address: [address] [facility] [address] [facility] [place] [address]- [place] Telecom: Name: Doretha Avilez MD Position: [facility] Physician - Primary Care Member Role: PCP Address: [facility] [place] [address]- Telecom: Name: Mary Solis RN Position: [facility] OB RN Member Role: Primary Care Nurse Name: Krisitna Parker RN Position: [facility] RN Member Role: Primary Care Nurse Name: Mir Parada Position: [facility] Outreach Member Role: Lifetime Consulting Physician Name: Miguel Beltran RN Position: [facility] RN Member Role: Primary Care Nurse Name: Barbara Blanca RN Position: [facility] RN Member Role: Primary Care Nurse Care Team Related Persons Name: MARIAH SAUCEDO Name: MARIAH PAT Name: MÓNICA JASSO Insurance Providers Guarantor name: CHRISTOFER LEIWS Health Plan Information #: 1 Payer: MEDICARE PART B OUTPT Member Number: NA Policy Number: NA Group Number: NA Health Plan Information #: 2 Payer: [place] Member Number: NA Policy Number: NA Group Number: NA
--- OUTSIDE RECORDS SUMMARY | 2024-08-26 11:17 | XMS_ITS | Data Portability ---
Author Organization [facility] Photo Rankr, svmg_admin Address [address] [place] [id number] Care Team Providers Care Repack Room Worker Name Role Phone XOCHITL, IDALIA Primary Care Provider SHUBHAM PINEDA Oncology Rep Specialist LAVERNE UMANA Oncology Rep Specialist Assessment Encounter Date Assessment Date Assessment LastModified by Organization Details LastModified Time 03/03/2024 03/03/2024 I had the pleasu re of evaluating Shubham Pappas in my office earlier today. He was seen as a new patient to me. Thank you so much for having me involved in his cardiology care. Shubham is a 48-year-old man. He is a nonsmoker and has a history of diabetes mellitus since childhood. He currently is on an insulin pump. He also has a history of hypertension and hyperlipidemia. He is unsure if there is a family history of ischemic coronary artery disease or stroke. He told me that he has been diagnosed with heart failure. He was unsure how that diagnosis was made. He has had an echocardiogram that shows an ejection fraction of 50 to 55% with no significant valvular lesions. He had a nuclear stress test performed yesterday at [facility] and he is scheduled for an MRI of his heart given his left ventricular hypertrophy and unexplained heart failure. Clinically, he is short of breath but also carries a diagnosis of asthma and COPD. He has no palpitations, syncope or presyncope. He has had no sensory, motor, or other neurologic symptoms. He has no chest pain clearly suggestive of angina. A complete review of systems was otherwise unremarkable. CURRENT MEDICAL REGIMEN: Includes amlodipine, Arnuity Ellipta, insulin, furosemide, hydrocortisone cream, Lisinopril, Lyrica, mupirocin, rosuvastatin, sulfamethoxazole-tr imethoprim, and Ventolin HFA. ALLERGIES: Include cat dander, cigarette smoke, Compazine, ibuprofen, Imitrex, mold, Motrin, NSAIDS pollen extracts, Toradol, and Wellbutrin. SOCIAL HISTORY: Remarkable for the fact that he has been with the same woman for 20 years. He is disabled. He does not drink significant quantities of alcohol and occasionally drinks caffeine. He has no children. PHYSICAL EXAMINATION: Shows him to be 6 feet tall and weigh 268 pounds. His BMI is 36.4. His blood pressure is 118/70 left arm and 112/74 right arm. His pulse is 72 and regular. His respiratory rate is 12 and nonlabored. His lung puri were clear to auscultation throughout. Cardiovascular examination reveals a regular rate and rhythm. There is a normal S1 and a split S2. There are no third or fourth heart sounds identified. There is a grade 2/6 ejection quality murmur at the left parasternal border. There are no diastolic murmurs. Neck veins are flat with unimpressive venous pulsations and there is no peripheral edema. Abdominal examination reveals no organomegaly, masses or tenderness to palpation. Skin exam shows no rashes. Musculoskeletal examination shows no gross changes consistent with arthritis. HEENT exam shows moist mucous membranes. Eye exam shows no xanthelasma and they are nonicteric. His resting electrocardiogram reveals normal sinus rhythm with occasional premature ventricular contractions. There is poor R wave progression across the precordia leads. IMPRESSION: Shubham is a 48-year-old male. He has history of diabetes mellitus since childhood, hypertension, hyperlipidemia, and presumed diastolic heart failure. He is scheduled to have a nuclear stress test and an MRI some time in the near future to complete the workup. I have asked him to continue with his current medical regimen at their current dosages. I told him we would regroup after his MRI and nuclear stress test have been obtained. As always, it is a pleasure seeing patients along with you. [email or web address] Not available 03/03/2024 18:34:24 05/31/2024 05/31/2024 Shubham is presenting for a 3 month follow up appointment. He is in office with his . Shubham is doing well from a cardiology perspective. There is no evidence of decompensated heart failure, chest pain suggestive of recurrent angina, or arrhythmia. His lower extremity edema has been well controlled with intermittent use of furosemide. Shubham has been making efforts to lose weight through exercise and diet and has lost over 125 pounds. I congratulated him on his efforts. He is currently receiving steroid injections indefinitely for a collapsed ankle but does not feel this has impacted his activity level. He has been monitoring his blood pressure at home as the steroid injections have elevated his blood pressure. His log reveal blood pressures often >140/90. We discussed increasing his hypertension control and Shubham declined. Given his history of syncope with hypotension, he is not interested in adjusting his blood pressure medications today. He agreed to continue to closely monitor his blood pressures at home. His blood pressure in office was well controlled at 130/74. He denies recurrence of his syncope. Shubham reports he did have his MRI and stress tests ordered by Dr. Umana performed. Based on his history, he may have been told that he had an ejection fraction of 49% but is unsure. We unfortunately do not have the MRI report or results from the stress test. We discussed that our office will obtain test results and call him to discuss this further and if medication adjustments are required. I have asked him to have an updated set of labs prior to his next appointment. We will see him back in office in 3-4 months with labs. As always, it is a pleasure seeing patients along with you. Not available 06/02/2024 13:20:37 07/12/2024 07/12/2024 Shubham is presenting for a follow up appointment to discuss his testing results Shubham is doing well from a cardiology perspective. There is no evidence of decompensated heart failure, chest pain suggestive of recurrent angina, or arrhythmia. He feels his dyspnea has improved with weight loss. He rarely requires the furosemide. 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 His cardiac MRI revealed an LVEF 46% without evidence of infiltrative CM or infarct. It also recorded mildly dilated LA and RA as well as an enlarged RV with borderline hypokinesis and mild MR. His echocardiogram revealed LVEF 50-55%, grade 2 LV diastolic dysfunction, an enlarged RV, no significant valvular issues, and an ascending aorta dilated at 4.1cm. We discussed that given his systolic dysfunction recorded on two modalities of testing, it would be reasonable to start him on a cardiomyopathy regiment including Entresto and Jardiance. He is already on metoprolol succinate 25mg tablets at bedtime and I have asked him to continue this. We agreed to hold off on the addition of aldactone at this time given his history of hypotension and syncope. I have asked him to stop his amlodipine and his lisinopril. We also discussed he should reduce his over the counter potassium supplement from 6 tablets twice daily to 4 tablets twice daily. We will repeat a BMP after 1 week his new medications to ensure his potassium levels are stable. I have also placed an order for a proBNP for a baseline level. Shubham was agreeable with this plan. We discussed that we will repeat an echo after 3 months of GDMT. We discussed the importance of close monitoring of his blood glucose levels, blood pressure, and for the development of new or worsening symptomatology. We discussed that if he develops new or worsening symptoms he should contact our office or seek immediate medical attention. All questions were answered to his stated satisfaction. Care plan made in collaboration with the patient and Dr. Pineda. We will see him in office in 3-4 weeks with labs As always, it is a pleasure seeing patients along with you. This was a telemed phone visit between myself at [facility] and the patient whom was at home. The patient requested and consented to the visit as he/she was unable to come to the office due to the transportation issues. 50% of the visit was spent counseling and education the patient on his/her condition. Total time spent with the patient was 26 mins START 1102 END [id number] Not available 07/12/2024 11:43:11 Plan of Treatment Reminders Order Date Submit Date Provider Last Modified By Organization Details Last Modified Time Details Appointments Any 45 2024 01:00P Shikha Raygoza PA-C Not available Not available Not available Lab ALT (alanin e aminotr ansfera se), serum or plasma 2023 024 [facility], [address], [address], [place], [address], 03/05/2024 08:09:11 AST/SGO T (aspart ate aminotr ansfera se), serum or plasma 2023 024 THIERRY [facility], [address], [address], [place], [address], 03/05/2024 08:09:10 CK (creati ne kinase) , total, serum 2023 024 THIERRY [facility], [address], [address], [place], [address], 03/05/2024 08:09:09 lipid panel, serum 2023 024 THIERRY [facility], [address], [address], [place], [address], 03/05/2024 08:09:07 pro BNP (pro B-type natriur etic peptide ), serum or plasma 2023 024 THIERRY [facility], [address], [address], [place], [address], 03/05/2024 08:09:09 BMP, serum or plasma 2023 024 THI[facility]Y [facility], [address], [address], [place], [address], 03/05/2024 08:09:08 CBC w/ auto diff 2023 024 THIERRY [facility], [address], [address], [place], [address], 03/05/2024 08:09:07 lipid panel, serum 2023 024 THIERRY [facility], [address], [address], [place], [address], 07/22/2024 08:08:13 AST/SGO T (aspart ate aminotr ansfera se), serum or plasma 2023 024 THIERRY [facility], [address], [address], [address], [place], [address], 07/22/2024 08:08:15 ALT (alanin e aminotr ansfera se), serum or plasma 2023 [facility], [address], [address], [address], [place], [address], 07/22/2024 08:08:15 CK (creati ne kinase) , total, serum 2023 [facility], [address], [address], [address], [place], [address], 07/22/2024 08:08:14 BMP, serum or plasma 2023 024 [facility], [address], [address], [address], [place], [address], 07/22/2024 08:08:14 BMP, serum or plasma 2023 024 [facility], [address], [address], [address], [place], [address], 07/22/2024 08:08:19 pro BNP (pro B-type natriur etic peptide ), serum or plasma 2023 024 [facility], [address], [address], [address], [place], [address], 07/22/2024 08:08:19 Referral None recorde d. Procedures None recorde d. Surgeries None recorde d. Imaging electro cardiog cj 2023 024 [facility] In-Office Order, Internal Use Only DO Not Attach Compendium DO Not Attach Compendium, Do Not Delete/merge, 03/04/2024 07:49:40 electro cardiog cj 2023 024 [facility] In-Office Order, Internal Use Only DO Not Attach Compendium DO Not Attach Compendium, Do Not Delete/merge, [id number] 05/31/2024 14:40:11 Medication Orders Entrest o 24 mg-26 [address] tablet [address] [facility], [address] [place] [address], [id number], 08/19/2024 17:19:42 Jardian ce 10 mg tablet [address] [facility], [address] [place] [address], [id number], 08/19/2024 17:19:28 Patient TargetsNo targets recorded. Patient Instructions Encounter Date Encounter Id Patient Instructions Last Modified By Organization Details Last Modified Time 03/03/2024 [id number] chest pain: care instructions rwholey Not available 03/04/2024 07:49:40 type 2 diabetes: care instructions rwholey Not available 03/04/2024 07:49:40 high blood pressure: care instructions rwholey Not available 03/04/2024 07:49:40 learning about high blood pressure rwholey Not available 03/04/2024 07:49:40 shortness of breath: care instructions rwholey Not available 03/04/2024 07:49:40 Reason for Referral None Reported. Results Created Date Observation Date Name Description Value Unit Range Abnormal Flag Note LastModifiedBy Organization Detail LastModifiedTime 03/04/2003/05/2024 CHOL+ TRIG+ HDL+L DL-D cholesterol, total 99 mg/dL 100-19 9 below low normal Not Available [facility] ([facility]) [address] [place], [address], 03/05/2024 08:09:07 03/04/2003/05/2024 CHOL+ TRIG+ HDL+L DL-D triglyceride s 75 mg/dL 0-149 normal Not Available [facility] ([facility]) [address] [place], [address], 03/05/2024 08:09:07 03/04/2003/05/2024 CHOL+ TRIG+ HDL+L DL-D HDL cholesterol 38 mg/dL >39 below low normal Not Available [facility] ([facility]) [address] [place], [address], 03/05/2024 08:09:07 03/04/20 24 03/05/2024 CHOL+ TRIG+ HDL+L DL-D LDL chol. (direct) 45 mg/dL 0-99 Not Available [facility] ([facility]) [address] [place], [address], 03/05/2024 08:09:07 03/04/20 24 03/05/2024 CHOL+ TRIG+ HDL+L DL-D LDL direct comment: [employer] SUPERINTENDENT Not Available [facility] ([facility]) [address] [facility], [place], [address], 03/05/2024 08:09:07 03/04/20 24 03/04/2024 CBC WITH DIFFE RENTI AL/PL ATELE T WBC 7.7 x10e3 /uL 3.4-10 .8 normal Not Available [facility] ([facility]) [address] [place], [address], 03/05/2024 08:09:07 03/04/20 24 03/04/2024 CBC WITH DIFFE RENTI AL/PL ATELE T RBC 4.74 x10e6 /uL 4.14-5 .80 normal Not Available [facility] ([facility]) [address] [place], [address], 03/05/2024 08:09:07 03/04/20 24 03/04/2024 CBC WITH DIFFE RENTI AL/PL ATELE T hemoglobin 14.2 g/dL 13.0-1 7.7 normal Not Available [facility] ([facility]) [address] [place], [address], 03/05/2024 08:09:07 03/04/20 24 03/04/2024 CBC WITH DIFFE RENTI AL/PL ATELE T hematocrit 45.5 % 37.5-5 1.0 normal Not Available [facility] ([facility]) [address] [place], [address], 03/05/2024 08:09:07 03/04/20 24 03/04/2024 CBC WITH DIFFE RENTI AL/PL ATELE T MCV 96 fL 79-97 normal Not Available [facility] ([facility]) [address] [facility], [place], [address], 03/05/2024 08:09:07 03/04/20 24 03/04/2024 CBC WITH DIFFE RENTI AL/PL ATELE T MCH 30.0 pg 26.6-3 3.0 normal Not Available [facility] ([facility]) [address] [facility], [place], [address], 03/05/2024 08:09:07 03/04/20 24 03/04/2024 CBC WITH DIFFE RENTI AL/PL ATELE T MCHC 31.2 g/dL 31.5-3 5.7 below low normal Not Available [facility] ([facility]) [address] [facility], [place], [address], 03/05/2024 08:09:07 03/04/20 24 03/04/2024 CBC WITH DIFFE RENTI AL/PL ATELE T RDW 12.6 % 11.6-1 5.4 Not Available [facility] ([facility]) [address] [facility], [place], [address], 03/05/2024 08:09:07 03/04/20 24 03/04/2024 CBC WITH DIFFE RENTI AL/PL ATELE T platelets 216 x10e3 /uL 150-45 0 normal Not Available [facility] ([facility]) [address] [facility], [place], [address], 03/05/2024 08:09:07 03/04/20 24 03/04/2024 CBC WITH DIFFE RENTI AL/PL ATELE T neutrophils 64 % not estab. normal Not Available [facility] ([facility]) [address] [facility], [place], [address], 03/05/2024 08:09:07 03/04/20 24 03/04/2024 CBC WITH DIFFE RENTI AL/PL ATELE T lymphs 26 % not estab. normal Not Available [facility] ([facility]) [address] [facility], [place], [address], 03/05/2024 08:09:07 03/04/20 24 03/04/2024 CBC WITH DIFFE RENTI AL/PL ATELE T monocytes 9 % not estab. normal Not Available [facility] ([facility]) [address] [facility], [place], [address], 03/05/2024 08:09:07 03/04/20 24 03/04/2024 CBC WITH DIFFE RENTI AL/PL ATELE T eos 1 % not estab. normal Not Available [facility] ([facility]) [address] [facility], [place], [address], 03/05/2024 08:09:07 03/04/20 24 03/04/2024 CBC WITH DIFFE RENTI AL/PL ATELE T basos 0 % not estab. normal Not Available [facility] ([facility]) [address] [facility], [place], [address], 03/05/2024 08:09:07 03/04/20 24 03/04/2024 CBC WITH DIFFE RENTI AL/PL ATELE T immature cells [employer] SUPERINTENDENT Not Available [facility] ([facility]) [address] [facility], [place], [address], 03/05/2024 08:09:07 03/04/20 24 03/04/2024 CBC WITH DIFFE RENTI AL/PL ATELE T neutrophils (absolute) 4.9 x10e3 /uL 1.4-7. 0 normal Not Available [facility] ([facility]) [address] [facility], [place], [address], 03/05/2024 08:09:07 03/04/20 24 03/04/2024 CBC WITH DIFFE RENTI AL/PL ATELE T lymphs (absolute) 2.0 x10e3 /uL 0.7-3. 1 normal Not Available [facility] ([facility]) [address] [facility], [place], [address], 03/05/2024 08:09:07 03/04/20 24 03/04/2024 CBC WITH DIFFE RENTI AL/PL ATELE T monocytes(ab solute) 0.7 x10e3 /uL 0.1-0. 9 normal Not Available [facility] ([facility]) [address] [facility], [place], [address], 03/05/2024 08:09:07 03/04/20 24 03/04/2024 CBC WITH DIFFE RENTI AL/PL ATELE T eos (absolute) 0.1 x10e3 /uL 0.0-0. 4 normal Not Available [facility] ([facility]) [address] [facility], [place], [address], 03/05/2024 08:09:07 03/04/20 24 03/04/2024 CBC WITH DIFFE RENTI AL/PL ATELE T baso (absolute) 0.0 x10e3 /uL 0.0-0. 2 normal Not Available [facility] ([facility]) [address] [facility], [place], [address], 03/05/2024 08:09:07 03/04/20 24 03/04/2024 CBC WITH DIFFE RENTI AL/PL ATELE T immature granulocytes 0 % not estab. Not Available [facility] ([facility]) [address] [facility], [place], [address], 03/05/2024 08:09:07 03/04/20 24 03/04/2024 CBC WITH DIFFE RENTI AL/PL ATELE T immature grans (abs) 0.0 x10e3 /uL 0.0-0. 1 Not Available [facility] ([facility]) [address] [place], [address], 03/05/2024 08:09:07 03/04/20 24 03/04/2024 CBC WITH DIFFE RENTI AL/PL ATELE T NRBC [employer] SUPERINTENDENT Not Available [facility] ([facility]) [address] [facility], [place], [address], 03/05/2024 08:09:07 03/04/20 24 03/04/2024 CBC WITH DIFFE RENTI AL/PL ATELE T hematology comments: [employer] SUPERINTENDENT Not Available [facility] ([facility]) [address] [facility], [place], [address], 03/05/2024 08:09:07 03/04/20 24 03/05/2024 BASIC METAB OLIC PANEL (8) glucose 95 mg/dL 70-99 normal Not Available [facility] ([facility]) [address] [facility], [place], [address], 03/05/2024 08:09:08 03/04/20 24 03/05/2024 BASIC METAB OLIC PANEL (8) BUN 15 mg/dL 6-24 normal Not Available [facility] ([facility]) [address] [facility] [place], [address], 03/05/2024 08:09:08 03/04/20 24 03/05/2024 BASIC METAB OLIC PANEL (8) creatinine 1.08 mg/dL 0.76-1 .27 normal Not Available [facility] ([facility]) [address] [facility], [place], [address], 03/05/2024 08:09:08 03/04/20 24 03/05/2024 BASIC METAB OLIC PANEL (8) eGFR 85 mL/mi n/1.7 3 >59 normal Not Available [facility] ([facility]) [address] [facility], [place], [address], 03/05/2024 08:09:08 03/04/20 24 03/05/2024 BASIC METAB OLIC PANEL (8) BUN/creatini ne ratio 14 9-20 normal Not Available [facility] ([facility]) [address] [facility] [place], [address], 03/05/2024 08:09:08 03/04/20 24 03/05/2024 BASIC METAB OLIC PANEL (8) sodium 139 mmol/ L 134-14 4 normal Not Available [facility] ([facility]) [address] [facility] [place], [address], 03/05/2024 08:09:08 03/04/20 24 03/05/2024 BASIC METAB OLIC PANEL (8) potassium 4.6 mmol/ L 3.5-5. 2 normal Not Available [facility] ([facility]) [address] [facility] [place], [address], 03/05/2024 08:09:08 03/04/20 24 03/05/2024 BASIC METAB OLIC PANEL (8) chloride 100 mmol/ L 96-106 normal Not Available [facility] ([facility]) [address] [facility] [place], [address], 03/05/2024 08:09:08 03/04/20 24 03/05/2024 BASIC METAB OLIC PANEL (8) carbon dioxide, total 27 mmol/ L 20-29 normal Not Available [facility] ([facility]) [address] [facility] [place], [address], 03/05/2024 08:09:08 03/04/20 24 03/05/2024 BASIC METAB OLIC PANEL (8) calcium 9.4 mg/dL 8.7-10 .2 normal Not Available [facility] ([facility]) [address] [facility] [place], [address], 03/05/2024 08:09:08 03/04/20 24 03/05/2024 NT-WI OBNP nt-probnp <36 pg/mL 0-121 The follo wing cut-p oints have been sugge sted for the use of proBN P for the diagn ostic evalu ation of heart failu re (HF) in patie nts with acute dyspn ea: Modal ity Age Optim al Cut (year s) Point ----- ----- ----- ----- ----- ----- ----- ----- ----- ----- ---- Diagn osis (rule in HF) <50 450 pg/mL 50 - 75 900 pg/mL >75 1800 pg/mL Exclu ricco (rule out HF) Age indep enden t 300 pg/mL Not Available [facility] ([facility]) [address] [place], [address], 03/05/2024 08:09:09 03/04/20 24 03/05/2024 CK creatine kinase,total 173 U/L 49-439 normal Not Available [facility] ([facility]) [address] [place], [address], 03/05/2024 08:09:09 03/04/20 24 03/05/2024 AST (SGOT ) AST (SGOT) 23 IU/L 0-40 normal Not Available [facility] ([facility]) [address] [place], [address], 03/05/2024 08:09:10 03/04/20 24 03/05/2024 ALT (SGPT ) ALT (SGPT) 28 IU/L 0-44 normal Not Available [facility] ([facility]) [address] [place], [address], 03/05/2024 08:09:11 07/21/20 24 07/21/2024 CHOL+ TRIG+ HDL+L DL-D cholesterol, total 98 mg/dL 100-19 9 below low normal Not Available [facility] ([facility]) [address] [place], [address], 07/22/2024 08:08:13 07/21/20 24 07/21/2024 CHOL+ TRIG+ HDL+L DL-D triglyceride s 68 mg/dL 0-149 normal Not Available [facility] ([facility]) [address] [place], [address], 07/22/2024 08:08:13 07/21/20 24 07/21/2024 CHOL+ TRIG+ HDL+L DL-D HDL cholesterol 35 mg/dL >39 below low normal Not Available [facility] ([facility]) [address] [place], [address], 07/22/2024 08:08:13 07/21/20 24 07/22/2024 CHOL+ TRIG+ HDL+L DL-D LDL chol. (direct) 48 mg/dL 0-99 Not Available [facility] ([facility]) [address] [place], [address], 07/22/2024 08:08:13 07/21/2007/22/2024 CHOL+ TRIG+ HDL+L DL-D LDL direct comment: [employer] SUPERINTENDENT Not Available [facility] ([facility]) [address] [place], [address], 07/22/2024 08:08:13 07/21/20 24 07/21/2024 BASIC METAB OLIC PANEL (8) glucose 49 mg/dL 70-99 below low normal Not Available [facility] ([facility]) [address] [place], [address], 07/22/2024 08:08:14 07/21/2007/21/2024 BASIC METAB OLIC PANEL (8) BUN 16 mg/dL 6-24 normal Not Available [facility] ([facility]) [address] [place], [address], 07/22/2024 08:08:14 07/21/20 24 07/21/2024 BASIC METAB OLIC PANEL (8) creatinine 1.03 mg/dL 0.76-1 .27 normal Not Available [facility] ([facility]) [address] [place], [address], 07/22/2024 08:08:14 07/21/20 24 07/21/2024 BASIC METAB OLIC PANEL (8) eGFR 90 mL/mi n/1.7 3 >59 normal Not Available [facility] ([facility]) [address], [place], [address], 07/22/2024 08:08:14 07/21/20 24 07/21/2024 BASIC METAB OLIC PANEL (8) BUN/creatini ne ratio 16 9-20 normal Not Available [facility] ([facility]) [address] [facility], [place], [address], 07/22/2024 08:08:14 07/21/20 24 07/21/2024 BASIC METAB OLIC PANEL (8) sodium 140 mmol/ L 134-14 4 normal Not Available [facility] ([facility]) [address] [facility], [place], [address], 07/22/2024 08:08:14 07/21/20 24 07/21/2024 BASIC METAB OLIC PANEL (8) potassium 4.1 mmol/ L 3.5-5. 2 normal Not Available [facility] ([facility]) [address] [facility], [place], [address], 07/22/2024 08:08:14 07/21/20 24 07/21/2024 BASIC METAB OLIC PANEL (8) chloride 101 mmol/ L 96-106 normal Not Available [facility] ([facility]) [address] [facility], [place], [address], 07/22/2024 08:08:14 07/21/20 24 07/21/2024 BASIC METAB OLIC PANEL (8) carbon dioxide, total 28 mmol/ L 20-29 normal Not Available [facility] ([facility]) [address] [facility], [place], [address], 07/22/2024 08:08:14 07/21/20 24 07/21/2024 BASIC METAB OLIC PANEL (8) calcium 9.4 mg/dL 8.7-10 .2 normal Not Available [facility] ([facility]) [address] [place], [address], 07/22/2024 08:08:14 07/21/20 24 07/22/2024 CK creatine kinase,total 335 U/L 49-439 normal Not Available [facility] ([facility]) [address] [place], [address], 07/22/2024 08:08:14 07/21/20 24 07/21/2024 AST (SGOT ) AST (SGOT) 27 IU/L 0-40 normal Not Available [facility] ([facility]) [address] [place], [address], 07/22/2024 08:08:15 07/21/20 24 07/21/2024 ALT (SGPT ) ALT (SGPT) 24 IU/L 0-44 normal Not Available [facility] ([facility]) [address] [place], [address], 07/22/2024 08:08:15 07/21/20 24 07/22/2024 BASIC METAB OLIC PANEL (8) glucose 48 mg/dL 70-99 below low normal Not Available [facility] ([facility]) [address] [place], [address], 07/22/2024 08:08:19 07/21/2007/22/2024 BASIC METAB OLIC PANEL (8) BUN 16 mg/dL 6-24 normal Not Available [facility] ([facility]) [address] [place], [address], 07/22/2024 08:08:19 07/21/20 24 07/22/2024 BASIC METAB OLIC PANEL (8) creatinine 0.97 mg/dL 0.76-1 .27 normal Not Available [facility] ([facility]) [address] [facility] [place], [address], 07/22/2024 08:08:19 07/21/20 24 07/22/2024 BASIC METAB OLIC PANEL (8) eGFR 96 mL/mi n/1.7 3 >59 normal Not Available [facility] ([facility]) [address], [place], [address], 07/22/2024 08:08:19 07/21/20 24 07/22/2024 BASIC METAB OLIC PANEL (8) BUN/creatini ne ratio 16 9-20 normal Not Available [facility] ([facility]) [address] [facility], [place], [address], 07/22/2024 08:08:19 07/21/2007/22/2024 BASIC METAB OLIC PANEL (8) sodium 141 mmol/ L 134-14 4 normal Not Available [facility] ([facility]) [address] [facility], [place], [address], 07/22/2024 08:08:19 07/21/2007/22/2024 BASIC METAB OLIC PANEL (8) potassium 4.1 mmol/ L 3.5-5. 2 normal Not Available [facility] ([facility]) [address] [facility], [place], [address], 07/22/2024 08:08:19 07/21/2007/22/2024 BASIC METAB OLIC PANEL (8) chloride 101 mmol/ L 96-106 normal Not Available [facility] ([facility]) [address] [facility], [place], [address], 07/22/2024 08:08:19 07/21/2007/22/2024 BASIC METAB OLIC PANEL (8) carbon dioxide, total 26 mmol/ L 20-29 normal Not Available [facility] ([facility]) [address] [facility] [place], [address], 07/22/2024 08:08:19 07/21/2018 0707/22/2024 BASIC METAB OLIC PANEL (8) calcium 9.6 mg/dL 8.7-10 .2 normal Not Available [facility] ([facility]) [address] [place], [address], 07/22/2024 08:08:19 07/21/20 24 07/22/2024 NT-WI OBNP nt-probnp <36 pg/mL 0-121 The follo wing cut-p oints have been sugge sted for the use of proBN P for the diagn ostic evalu ation of heart failu re (HF) in patie nts with acute dyspn ea: Modal ity Age Optim al Cut (year s) Point ----- ----- ----- ----- ----- ----- ----- ----- ----- ----- ---- Diagn osis (rule in HF) <50 450 pg/mL 50 - 75 900 pg/mL >75 1800 pg/mL Exclu ricco (rule out HF) Age indep enden t 300 pg/mL Not Available [facility] ([facility]) [address] [place], [address], 07/22/2024 08:08:19 08/17/20 24 08/17/2024 BASIC METAB OLIC PANEL (8) glucose 55 mg/dL 70-99 below low normal Not Available [facility] ([facility]) [address] [place], [address], 08/17/2024 23:05:20 08/17/20 24 08/17/2024 BASIC METAB OLIC PANEL (8) BUN 16 mg/dL 6-24 normal Not Available [facility] ([facility]) [address] [place], [address], 08/17/2024 23:05:20 08/17/20 24 08/17/2024 BASIC METAB OLIC PANEL (8) creatinine 1.07 mg/dL 0.76-1 .27 normal Not Available [facility] ([facility]) [address] [facility], [place], [address], 08/17/2024 23:05:20 08/17/20 24 08/17/2024 BASIC METAB OLIC PANEL (8) eGFR 86 mL/mi n/1.7 3 >59 normal Not Available [facility] ([facility]) [address] [facility], [place], [address], 08/17/2024 23:05:20 08/17/20 24 08/17/2024 BASIC METAB OLIC PANEL (8) BUN/creatini ne ratio 15 9-20 normal Not Available [facility] ([facility]) [address] [facility] [place], [address], 08/17/2024 23:05:20 08/17/20 24 08/17/2024 BASIC METAB OLIC PANEL (8) sodium 139 mmol/ L 134-14 4 normal Not Available [facility] ([facility]) [address] [facility] [place], [address], 08/17/2024 23:05:20 08/17/20 24 08/17/2024 BASIC METAB OLIC PANEL (8) potassium 4.7 mmol/ L 3.5-5. 2 normal Not Available [facility] ([facility]) [address] [facility] [place], [address], 08/17/2024 23:05:20 08/17/20 24 08/17/2024 BASIC METAB OLIC PANEL (8) chloride 100 mmol/ L 96-106 normal Not Available [facility] ([facility]) [address] [facility] [place], [address], 08/17/2024 23:05:20 08/17/20 24 08/17/2024 BASIC METAB OLIC PANEL (8) carbon dioxide, total 30 mmol/ L 20-29 above high normal Not Available [facility] ([facility]) [address] [facility] [place], [address], 08/17/2024 23:05:20 08/17/20 24 08/17/2024 BASIC METAB OLIC PANEL (8) calcium 9.8 mg/dL 8.7-10 .2 normal Not Available [facility] ([facility]) [address] [facility], [place], [address], 08/17/2024 23:05:20 08/17/20 24 08/17/2024 HEMOG LOBIN A1C hemoglobin A1C 5.6 % 4.8-5. 6 normal Predi abete s: 5.7 - 6.4 Diabe shannan: >6.4 Glyce saritha contr ol for adult s with diabe shannan: <7.0 Not Available [facility] ([facility]) [address] [facility], [place], [address], 08/17/2024 23:05:21 03/02/20 24 12/01/2023 US, echo ardio gram, trans thora cic, compl ete, w/ color flow No observ ation record ed. [email or web address] Not Available 03/02 16:15:59 03/02/20 24 05/16/2023 elect rocar diogr am No observ ation record ed. [email or web address] Not Available 03/02 16:17:37 03/03/20 elect rocar diogr am No observ ation record ed. In-Office Order Internal Use Only DO Not Attach Compendium DO Not Attach Compendium, Do Not Delete/merge, [id number] 03/03/2024 12:49:47 03/05/20 24 03/03/2024 elect rocar diogr am No observ ation record ed. [email or web address] Not Available 2023 13:59:56 05/31/20 elect rocar diogr am No observ ation record ed. [email or web address] In-Office Order Internal Use Only DO Not Attach Compendium DO Not Attach Compendium, Do Not Delete/merge, [id number] 05/31/2024 13:19:36 06/08/20 24 05/31/2024 elect rocar diogr am No observ ation record ed. [email or web address] Not Available 2023 12:46:57 06/10/20 24 03/02/2024 tread mill nucle ar stres s test (PROC ) No observ ation record ed. [email or web address] Not Available 2023 11:01:38 06/10/20 24 03/30/2024 MRI, heart funct ion and morph ology , w/wo contr ast No observ ation record ed. [email or web address] Not Available 2023 11:01:52 Result Notes None recorded. Problems Name Problem SNOMED Code Status Onset Date Resolution Date Notes Provider Name and Address Organization Details Recorded Time Mixed hyperlipid emia 688559102 Active 2023 Natasha aceves [facility] 4 15:20:19 Benign essential hypertensi on 5926123 Active 2023 Natasha aceves [facility] 4 15:20:19 Dyspnea 666224794 Active 2023 Natasha aceves [facility] 4 15:20:20 Chest pain 05998760 Active 2023 Natasha aceves [facility] 4 15:20:22 Chronic combined systolic and diastolic heart failure 094623832019 100 Active 2023 Natasha aceves [facility] 4 15:20:23 Type 1 diabetes mellitus 12643497 Active 2023 Cee Raygoza PA-C [address] [place] [address], [phone], [facility] 4 12:15:11 Obstructiv e sleep apnea syndrome 41563029 Active on biPAP Cee Raygoza PA-C [address] [place], [address], [facility] 4 12:16:31 Chronic obstructiv e pulmonary disease 81099827 Active 2023 Cee Raygoza PA-C [address] [place] [address], [phone], [facility] 12:16:46 Problem Notes None recorded. Procedures Surgical History Date Name Laterality Status Provider Name and Address Organization Details Recorded Time Hernia Repair completed Laura Valles [facility] 03/01/2024 16:37:06 Imaging Results Imaging Date Name Status LastModified by Organization Details LastModified Time 12/01/2023 US, echocardiogram, transthoracic, complete, w/ color flow completed Information not available 03/02/2024 16:15:59 05/16/2023 electrocardiogram completed Informa tion not available 03/02/2024 16:17:37 03/03/2024 electrocardiogram completed In-Offi ce Order Internal Use Only DO Not Attach Compendium DO Not Attach Compendium, Do Not Delete/merge, [id number] 03/03/2024 12:49:47 03/03/2024 electrocardiogram completed BARCODE Informa tion not available 03/05/2024 13:59:56 05/31/2024 electrocardiogram completed [email or web address] In-Offi ce Order Internal Use Only DO Not Attach Compendium DO Not Attach Compendium, Do Not Delete/merge, [id number] 05/31/2024 13:19:36 05/31/2024 electrocardiogram completed BARCODE Informa tion not available 06/08/2024 12:46:57 03/02/2024 treadmill nuclear stress test (PROC) completed Information not available 06/28/2024 11:01:38 03/30/2024 MRI, heart function and morphology, w/wo contrast completed Information not available 06/28/2024 11:01:52 Procedure Notes None recorded. Medical Equipment None Reported. Allergies Allergen ID Allergen Name Allergen Category Reaction Reaction Severity Criticality Documentation Date Start Date Code Code System Note Provider Name and Address Organization Details Recorded Time 422100 Compazine medicatio n Not available Not available Not available 03/01/202435789 6 RxNorm sever e muscl e spasm Laura aceves [facility] 07/08/202 4 16:29:57 113213 Imitrex medicatio n Not available Not available Not available 03/01/2024 86788 3 RxNorm Laura aceves [facility] 4 16:30:08 045103 Motrin medicatio n Not available Not available Not available 03/01/2024 77399 8 RxNorm can' t take- harmf ul to my lexne kelly aceves, [facility] 4 16:30:51 345337 Non-stero idal anti-infl ammatory agent (product) medicatio n other Not available Not available 03/01/2024 04558 005 [facility] 4 12:49:07 219244 Toradol medicatio n Not available Not available Not available 03/01/2024 39888 RxNorm can' t take- harmf ul to my lexne kelly aceves, [facility] 4 16:31:19 583354 Wellbutri n medicatio n Not available Not available Not available 03/01/2024 55521 Rx[facility] 4 16:32:29 508187 codeine medicatio n itching Not available Not available 03/01/2024 2670 RxNorm Kortney Christianst ketan [facility] 4 12:49:07 421353 ibuprofen medicatio n other Not available Not available 03/03/2024 5640 RxNorm Kortney Roel aceves, [facility] 4 12:49:07 988389 POLLEN EXTRACTS environme nt,medica tion Not available Not available Not available 03/03/2024 44438 6 RxNorm Kortney Roel aceves, [facility] 4 12:49:07 926255 cat dander environme nt Not available Not available Not available 03/03/2024 Kortney aceves [facility] 4 12:49:07 154072 mold extract environme nt Not available Not available Not available 03/03/2024 02326 8 RxNorm Kortney aceves [facility] 4 12:49:07 443528 cigarette smoke environme nt Not available Not available Not available 03/03/2024 Kortney aceves [facility] 4 12:49:07 Medications Name Sig Start Date Stop Date Status Note LastModified by Organization Details LastModified Time celecoxib 200 mg capsule Take 1 capsule twice a day by oral route. active Not Available Not Available No t Available prednison e 10 mg tablet 03/03 completed Not Available Not Available Not Available doxycycli ne hyclate 100 mg capsule 03/03 completed Not Available Not Available Not Available ipratropi um 0.5 mg-albute rol 3 mg (2.5 mg base)/3 mL nebulizat ion soln prn active Not Available Not Available Not Available lisinopri l 20 mg tablet 03/03 completed Not Available Not Available Not Available prednison e 20 mg tablet 03/03 completed Not Available Not Available Not Available amlodipin e 2.5 mg tablet Take 1 tablet every day by oral route for 90 days. 07/16 completed Not Available Not Available Not Available amlodipin e 5 mg tablet Take 1 tablet every day by oral route for 90 days. 07/16 completed Not Available Not Available Not Available sulfameth oxazole 800 mg-trimet hoprim 160 mg tablet TAKE 1 TABLET BY MOUTH TWICE DAILY FOR 7 DAYS 05/31 completed Not Available Not Available Not Available omeprazol e 40 mg capsule,d elayed release 03/03 completed Not Available Not Available Not Available spironola ctone 25 mg tablet 03/03 completed Not Available Not Available Not Available hydrocort isone acetate 25 mg rectal supposito ry Insert 1 supposit ory twice a day by rectal route for 14 days. 07/12 completed Not Available Not Available Not Available erythromy fish 250 mg tablet 125mg take 1/2 tab 4-6 times a day active Not Available Not Available No t Available cephalexi n 500 mg capsule 03/03 completed Not Available Not Available Not Available lisinopri l 10 mg tablet daily 07/16 completed Not Available Not Available Not Available lansopraz ole 30 mg capsule,d elayed release 03/03 completed Not Available Not Available Not Available lisinopri l 30 mg tablet 03/03 completed Not Available Not Available Not Available mupirocin 2 % topical ointment 05/31 completed Not Available Not Available Not Available furosemid e 20 mg tablet Take 1 tablet every day by oral route as needed for 90 days. active Not Available Not Available No t Available metoprolo l succinate ER 25 mg tablet,ex tended release 24 hr Take 1 tablet every day by oral route at bedtime. active Not Available Not Available No t Available lisinopri l 40 mg tablet Take 1 tablet every day by oral route for 90 days. 05/31 completed Not Available Not Available Not Available ondansetr on 4 mg disintegr ating tablet 03/03 completed Not Available Not Available Not Available doxycycli ne hyclate 100 mg tablet TAKE 1 TABLET BY MOUTH TWICE DAILY FOR 7 DAYS 03/03 completed Not Available Not Available Not Available spironola ctone 50 mg tablet 03/03 completed Not Available Not Available Not Available Ventolin HFA 90 mcg/actua tion aerosol inhaler prn active Not Available Not Available Not Available azithromy fish 500 mg tablet TAKE 1 TABLET BY MOUTH DAILY FOR 5 DAYS 03/03 completed Not Available Not Available Not Available rosuvasta tin 40 mg tablet Take 1 tablet every day by oral route. active Not Available Not Available No t Available duloxetin e 20 mg capsule,d elayed release Take by oral route for 30 days. 03/03 completed Not Available Not Available Not Available mesalamin e 1,000 mg rectal supposito ry 03/03 completed Not Available Not Available Not Available Lyrica 150 mg capsule Take 1 capsule 3 times a day by oral route for 90 days. active Not Available Not Available No t Available potassium acetate 99mg 4 tablets BID active OTC per patient Not Available Not Available Not Available Jardiance 10 mg tablet Take 1 tablet every day by oral route. 2023 active Not Available Not Available Not Avai lable Arnuity Ellipta 100 mcg/actua tion powder for inhalatio n 05/31 completed Not Available Not Available Not Available Humalog KwikPen U-200 Insulin 200 unit/mL (3 mL) subcutane ous 05/31 completed Not Available Not Available Not Available Entresto 24 mg-26 mg tablet Take 0.5 tablets twice a day by oral route. active Not Available Not Available No t Available Basaglar KwikPen U-100 Insulin 100 unit/mL (3 mL) subcutane ous 05/31 completed Not Available Not Available Not Available Admelog U-100 Insulin lispro 100 unit/mL subcutane ous solution Daily 05/31 completed Not Available Not Available Not Available Baqsimi 3 mg/actuat ion nasal spray 05/31 completed Not Available Not Available Not Available Gvoke HypoPen 2-Pack 1 mg/0.2 mL subcutane ous auto-inje ctor 05/31 completed Not Available Not Available Not Available Vitals Date Recorded Body weight Body mass index (BMI) Body height Heart rate Systolic blood pressure Diastolic blood pressure Systolic blood pressure Diastolic blood pressure Provider Name and Address Organization Details Last Updated DateTime 4 851105. 19 g 36.4 kg/m2 182.88 cm 72 /min 118 mm[Hg] 70 mm[Hg] 122 mm[Hg] 74 mm[Hg] Kortney Sevilla [facility]. 13:16:36 Date Recorded Body height Body mass index (BMI) Body weight Oxygen saturation Oxygen saturation in Arterial blood by Pulse oximetry Heart rate Systolic blood pressure Diastolic blood pressure Provider Name and Address Organization Details Last Updated DateTime 4 182.88 cm 34.3 kg/m2 352186. 87 g 97 % 97 % 77 /min 130 mm[Hg] 74 mm[Hg] Mary Roy [facility] 13:42:07 Date Recorded Body height Body mass index (BMI) Body weight Provider Name and Address Organization Details Last Updated DateTime 07/12/2024 182.88 cm 32.4 kg/m2 207518.58 g Zari Li [facility] 07/12/2024 10:12:40 Social History Question Answer Notes LastModified by [employer] Details LastModified Time Tobacco Smoking Status Never Smoker Kortney Sevilla [facility] 03/03/2024 12:49:23 Do You Have An Advance Directive? No [email or web address] Information not available 03/03/2024 What Is Your Level Of Alcohol Consumption? None [email or web address] Information not available 03/03/2024 Are You Blind Or Do You Have Difficulty Seeing? No Information not available 03/03/2024 Is Blood Transfusion Acceptable In An Emergency? Yes Information not available 03/03/2024 What Is Your Level Of Caffeine Consumption? Occasional [email or web address] Information not available 03/03/2024 Are You Currently Employed? No [email or web address] Information not available 03/03/2024 Are You Deaf Or Do You Have Serious Difficulty Hearing? No [email or web address] Information not available 03/03/2024 What Type Of Diet Are You Following? SPECIFIC [email or web address] Information not available 03/03/2024 Which Of Your Hands Is Dominant? Left [email or web address] Information not available 03/03/2024 What Was The Date Of Your Most Recent Tobacco Screening? 05/31/2024 [email or web address] Information not available 05/31/2024 Do You Have Any Pets? Yes [email or web address] Information not available 03/03/2024 What Is Your Relationship Status? Single [email or web address] Information not available 03/03/2024 Do You Feel Stressed (tense, Restless, Nervous, Or Anxious, Or Unable To Sleep At Night)? [id number] [email or web address] Information not available 03/03/2024 Do You Use Any Illicit Or Recreational Drugs? No Information not available 03/03/2024 Do You Or Have You Ever Used Any Other Forms Of Tobacco Or Nicotine? No Information not available 03/03/2024 Sex: Unknown Functional Status Question Answer Note LastModified by [employer] Details LastModified Time Are you able to care for yourself? No [email or web address] Information not available 03/03/2024 What is your exercise level? Occasional Information not available 03/03/2024 Mental Status None recorded. Family History Relationship Description Onset Age of this Age Resolved Age Notes LastModified by Organization Details LastModified Time Mother Depressive disorder [email or web address] Not available 2023 12:49:12 Unspecified Relation Malignant tumor of colon [email or web address] Not available 2023 12:49:12 Unspecified Relation Hyperlipidem ia [email or web address] Not available 2023 12:49:12 Maternal Grandmother Myocardial infarction Not available 03/03 12:49:12 Maternal Grandmother Family history of malignant neoplasm [email or web address] Not available 2023 12:49:12 Maternal Grandmother Hypertensive disorder [email or web address] Not available 2023 12:49:12 Maternal Grandfather Myocardial infarction Not available 03/03 12:49:12 Maternal Grandfather [email or web address] lar accident Not available 05/2024 12:49:12 Maternal Grandfather Diabetes mellitus [email or web address] Not available 2023 12:49:12 Father Depressive disorder [email or web address] Not available 2023 12:49:12 Father Diabetes mellitus [email or web address] Not available 2023 12:49:12 Medical History Condition Response Diabetes (Insulin Dependent) Y High Blood Pressure (Hypertension) Y Anxiety N Edema (Swelling) Y Depression Y Asthma Y High Cholesterol (Hyperlipidemia) Y Gastrointestinal Disease (IBS, Gastritis , Ulcer, Acid Reflux) Y COPD (Chronic Obstructive Pulmonary Dise ase) Y Neuropathy (Numbness, Pain, Tingling) Y Sleep Apnea Y CHF (Congestive Heart Failure) Y Bleeding Problems Y Past Encounters Encounter ID Performer Location Encounter Start Date Encounter Closed Date Diagnosis/Indication Diagnosis SNOMED-CT Code Diagnosis ICD10 Code [id number] Shubham Pineda MD [facility] [address] [place] [id number] 03/03/2024 12:39:58 03/03/2024 14:27:57 Chronic combined systolic and diastolic heart failure 5891865186 09163 I50.42 Chest pain 71010740 R07. 2 Dyspnea 952038242 R06.02 Benign ess ential hypertension 7914779 I10 Mixed hyperlipidemia 267 385773 E78.2 Type 2 [place] mellitus without complication 974987874 E11.9 [id number] Cee Raygoza PA-C [facility] [address] [phone] 05/31/2024 13:17:52 05/31/2024 14:35:17 Chronic diastolic heart failure 359499179 I50.32 Benign ess ential hypertension 6883036 I10 Mixed hyperlipidemia 267 911956 E78.2 Type 1 [place] mellitus 53176992 E10.9 Edema of l ower extremity 323619348 R60.0 [id number] Cee Raygoza PA-C [facility] [address] [facility] [place] [address] 07/12/2024 09:13:48 07/12/2024 12:10:27 Chronic combined systolic and diastolic heart failure 4389415096 37579 I50.42 Benign ess ential hypertension 8462210 I10 Type 1 [place] mellitus 12241605 E10.9 Chronic ob structive pulmonary disease 95704437 J44.9 Mixed hyperlipidemia 267 777270 E78.2 Dyspnea 393859277 R06.00 History of syncope 40231 05135 53702 Z86.79 Health Concerns Section Related Observation LastModified by Organization Detai ls LastModified Time None Recorded Concern Status LastModified by Organization Details LastModified Time None Recorded Advance Directives Directive N: Payers Encounter Date Sequence Insurance Name Policy Number Policy Rodriguez Covered Member ID Rodriguez Member ID Guarantor Name 03/03/2024 1 MEDICARE [place]: [facility] Shubham Pappas [id number] Shubham Pappas 03/03/2024 2 [place] [facility] Shubham Pappas [id number] Shubham Pappas 05/31/2024 1 MEDICARE B-[place]: [facility] Shubham Pappas [id number] Shubham Pappas 05/31/2024 2 [place] [facility] Shubham Pappas [id number] Shubham Pappas 07/12/2024 1 MEDICARE B-[place]: [facility] Shubham Pappas [id number] Shubham Pappas 07/12/2024 2 [place] [facility] Shubham Pappas [id number] Shubham Pappas Notes Date Note Type Note Provider Name and Address Organization Details Recorded Time 05/31/2024 text/html Shubham Pappas i s presenting to the office for a 3 month follow up appointment. He has a past medical history of presumed HFpEF, SABRINA on CPAP, HTN, HLD, T1DM on insulin pump, asthma, COPD. His last appointment in our office was on 03/03/[address] Pineda as a new patient. At this visit they discussed that Shubham had been told at some point that he had heart failure but was unsure on how this diagnosis was made. He also reported being short of breath. They discussed that he was scheduled to undergo an MRI and a nuclear stress test to complete his workup cardiac coe. Today, Shubham feels well. He denies recurrence of his syncope which he reports was due to low blood pressures. He does monitor his blood pressure at home approximately 1.5 hours after taking his medications. It does appear to be elevated at home. He is still following with Dr. Umana in [place], [place] for local care. He may be seeing them on Jun 14. He has intermittent lower extremity edema if he eats at a restaurant. This is well controlled with his furosemide. He reports his testing showed an ejection fraction of 49% however is not certain. He has been making efforts to lose weight and hs been exercising and eating well. He is on steroid injections indefinitely for a collapsed ankle. This tends to increase his blood pressure for a day or two after per the patient. He did have his MRI and stress test performed. Denies shortness of breath, chest pain, headache, dizziness, light headedness, palpitations, syncope, near syncope, changes in vision, jaw pain, arm pain on exertion, numbness, weakness, orthopnea or sleeping with more pillows at night, lower extremity edema. ----ECHO [id number] 03/04/24 BOGDAN Tomlinson-Gabby [address] [place] [address], [phone], [facility] 06/02/2024 13:21:03 07/12/2024 text/html Shubham Pappas i s presenting to the office for a telemedicine follow up appointment to review his testing results. He has a past medical history of Diabetes mellitus since childhood on insulin pump, hypertension, hyperlipidemia, Asthma, COPD, Presumed diastolic heart failure. His last appointment in our office was on 05/31/24 with in. At this visit we discussed that his lower extremity had been well-controlled with the intermittent use of furosemide and he was making efforts to lose weight with diet and exercise and has lost over 125 pounds. He did provide a blood pressure log that revealed his blood pressure to be often greater than 140/90 and we discussed increasing his blood pressure medications and Shubham declined given his history of syncope with hypotension. He did report that he had had a cardiac MRI which revealed his ejection fraction to be 49% however we did not have this testing available we discussed that we would call him to discuss these results further once they were received by our office. Today, Shubham feels well. He has colonoscopy and endoscopy scheduled for tomorrow and he is nervs about this. He has been losing weight purposefully. He feels like he is feeling better. Sometime he has woozy when bending he waist. He uses furosemide. He has ankle pain at end of the day. Denies shortness of breath, chest pain, headache, dizziness, light headedness, palpitations, syncope, near syncope, changes in vision, jaw pain, arm pain on exertion, numbness, weakness, orthopnea or sleeping with more pillows at night, lower extremity edema. ----treadmill nuclear stress test (PROC) [id number], echocardiogram, transthoracic, complete, w/ color flow [id number] 03/04/24 BOGDAN Tomlinson-Gabby [address] [place] [address], [phone], [facility]. 07/12/2024 12:00:23
== END 2024-08-26 11:05 | disposition home or self-care (01) ==
PROVIDERS: PCP Internal Medicine; Visit Provider Internal Medicine
DX: E66.9 Obesity, unspecified (principal); G47.33 Obstructive sleep apnea (adult) (pediatric); J44.9 Chronic obstructive pulmonary disease, unspecified; J98.4 Other disorders of lung; J30.9 Allergic rhinitis, unspecified
CPT/HCPCS: 99213

== ENCOUNTER → 2024-08-26 10:41 | Outpatient (BNVA) | payer MEDICARE, MEDICAID, SELFPAY | PROVIDERS: PCP Internal Medicine; Visit Provider Internal Medicine | DX: J44.9 Chronic obstructive pulmonary disease, unspecified (principal); J98.4 Other disorders of lung; J30.9 Allergic rhinitis, unspecified; G47.33 Obstructive sleep apnea (adult) (pediatric); E66.9 Obesity, unspecified; Z68.33 Body mass index [BMI] 33.0-33.9, adult | CPT/HCPCS: 99212 ==

== ENCOUNTER 2024-09-01 11:46 | Outpatient (AMB) | payer MEDICARE, MEDICAID, SELFPAY ==
--- OUTSIDE RECORDS SUMMARY | 2024-09-01 11:56 | XMS_ITS | Continuity of Care Document ---
Author Organization [facility] Address [address] [place] [id number] Care Team Providers Care Data [employer] Software Consultant Name Role Phone IDALIA LEUNG Primary Care Provider [phone] CHRISTOFER PINEDA Assistant Softball Coach LAVERNE TRINH Assistant Softball Coach [phone] Assessment Encounter Date Assessment Date Assessment LastModified by Organization Details LastModified Time 07/12/2024 07/12/2024 Christofer is presenting for a follow up appointment to discuss his testing results Christofer is doing well from a cardiology perspective. There is no evidence of decompensated heart failure, chest pain suggestive of recurrent angina, or arrhythmia. He feels his dyspnea has improved with weight loss. He rarely requires the furosemide. 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 His cardiac [...] for a proBNP for a baseline level. Christofer was agreeable with this plan. We discussed [...] Modified Time Details Appointments Any 45 2024 01:45P Shikha Raygoza PA-C Not available Not available Not available Lab BMP, serum or plasma 2023 [facility], [address] [facility] [facility], [address], [place], [address], 07/22/2024 08:08:19 pro BNP (pro B-type natriur etic peptide ), serum or plasma 2023 024 [facility], [address], [place], [address], 07/22/2024 08:08:19 Referral None recorde d. Procedures None recorde d. Surgeries None recorde d. Imaging None recorde d. Medication Orders Entrest o 24 mg-26 mg tablet 2023 024 [facility], [address] [place] [address], [id number], 08/19/2024 17:19:42 Jardian ce 10 mg tablet 2023 024 [facility], [address] [place] [address], [address], 08/19/2024 17:19:28 Patient TargetsNo targets recorded. Patient InstructionsNo instructions recorded. Reason for Referral None Reported. Problems Name Problem SNOMED Code Status Onset Date Resolution Date Notes Provider Name and Address Organization Details Recorded Time Mixed hyperlipid emia 488268508 Active 2023 Natasha aceves [facility] 4 15:20:19 Benign essential hypertensi on 2422342 Active 2023 Natasha aceves [facility] 4 15:20:19 Dyspnea 273597860 Active 2023 Natasha aceves [facility] 4 15:20:20 Chest pain 15124692 Active 2023 Natasha aceves [facility] 4 15:20:22 Chronic combined systolic and diastolic heart failure 775558449031 100 Active 2023 Natasha aceves [facility] 4 15:20:23 Type 1 diabetes mellitus 75959977 Active 2023 Cee Raygoza PA-C [address] [place] [address], [phone], [facility] 4 12:15:11 Obstructiv e sleep apnea syndrome 87309982 Active on biPAP Cee Raygoza PA-C [address] [place], [phone], [facility] 4 12:16:31 Chronic obstructiv e pulmonary disease 04186807 Active 2023 Cee Raygoza PA-C [address] [place] [address], [phone], [facility] 4 12:16:46 Problem Notes None recorded. Procedures Surgical History Date Name Laterality Status Provider Name and Address Organization Details Recorded Time Hernia Repair completed Laura Valles [facility] 03/01/2024 16:37:06 Imaging Results None recorded. Procedure Notes None recorded. Medical Equipment None Reported. Allergies Allergen ID Allergen Name Allergen Category Reaction Reaction Severity Criticality Documentation Date Start Date Code Code System Note Provider Name and Address Organization Details Recorded Time 111842 Compazine medicatio n Not available Not available Not available 03/01/202453086 6 RxNorm sever e muscl e spasm Laura [facility] 4 16:29:57 545893 Imitrex medicatio n Not available Not available Not available 03/01/2024 49134 3 RxNorm [facility] 16:30:08 833019 Motrin medicatio n Not available Not available Not available 03/01/202440509 8 RxNorm can' t take- harmf ul to my kidne kelly [facility] 4 16:30:51 711341 Non-stero idal anti-infl ammatory agent (product) medicatio n other Not available Not available 03/01/2024 63987 005 SNOMED Kortney Sevilla [facility] 4 12:49:07 913106 Toradol medicatio n Not available Not available Not available 03/01/2024 01328 RxNorm can' t take- harmf ul to my kidne kelly [facility] 4 16:31:19 827991 Wellbutri n medicatio n Not available Not available Not available 03/01/2024 08840 RxNorm suici daysi [facility] 4 16:32:29 363635 codeine medicatio n itching Not available Not available 03/01/2024 2670 RxNorm Kortney aceves [facility] 4 12:49:07 532333 ibuprofen medicatio n other Not available Not available 03/03/2024 5640 RxNorm Kortney aceves [facility] 4 12:49:07 946176 POLLEN EXTRACTS environme nt,medica tion Not available Not available Not available 03/03/2024 85066 6 RxNorm Kortney aceves [facility] 4 12:49:07 308730 cat dander environme nt Not available Not available Not available 03/03/2024 Kortney aceves [facility] 4 12:49:07 652595 mold extract environme nt Not available Not available Not available 03/03/2024 81694 8 RxNorm [facility] 4 12:49:07 186202 cigarette smoke environme nt Not available Not available Not available 03/03/2024 [facility] 4 12:49:07 Medications Name Sig Start Date [...] Available Not Available Vitals Date Recorded Body height Body mass index (BMI) Body weight Provider Name and Address Organization Details Last Updated DateTime 07/12/2024 182.88 cm 32.4 kg/m2 019814.58 g Zari Li [place] - [facility]. 07/12/2024 10:12:40 Social History Question Answer Notes LastModified by Organizat ion Details LastModified Time Tobacco Smoking Status Never Smoker Kortney aceves [facility] 03/03/2024 12:49:23 Do You Have An Advance Directive? No [email or web address] Information not available 03/03/2024 What Is Your Level Of Alcohol Consumption? None [email or web address] Information not available 03/03/2024 Are You Blind Or Do You Have Difficulty Seeing? No Information not available 03/03/2024 Is Blood Transfusion Acceptable In An Emergency? Yes [email or web address] Information not available 03/03/2024 What Is Your Level Of Caffeine Consumption? Occasional [email or web address] Information not available 03/03/2024 Are You Currently Employed? No Information not available 03/03/2024 Are You Deaf Or Do You Have Serious Difficulty Hearing? No Information not available 03/03/2024 What Type Of Diet Are You Following? SPECIFIC [email or web address] Information not available 03/03/2024 Which Of Your Hands Is Dominant? Left [email or web address] Information not available 03/03/2024 What Was The Date Of Your Most Recent Tobacco Screening? 05/31/2024 [email or web address] Information not available 05/31/2024 Do You Have Any Pets? Yes Information not available 03/03/2024 What Is Your Relationship Status? Single Information not available 03/03/2024 Do You Feel Stressed (tense, Restless, Nervous, Or Anxious, Or Unable To Sleep At Night)? KB85306-1 [email or web address] Information not available 03/03/2024 Do You Use Any Illicit Or Recreational Drugs? No [email or web address] Information not available 03/03/2024 Do You Or Have You Ever Used Any Other Forms Of Tobacco Or Nicotine? No [email or web address] Information not available 03/03/2024 Sex: Unknown Functional Status Question Answer Note LastModified by Organizat ion Details LastModified Time Are you able to care for yourself? No [email or web address] Information not available 03/03/2024 What is your exercise level? Occasional [email or web address] Information not available 03/03/2024 Mental Status None recorded. Family History Relationship Description Onset Age of this Age Resolved Age Notes LastModified by Organization Details LastModified Time Mother Depressive disorder [email or web address] Not available 2023 12:49:12 Unspecified Relation Malignant tumor of colon Not available 2023 12:49:12 Unspecified Relation Hyperlipidem ia [email or web address] Not available 2023 12:49:12 Maternal Grandmother Myocardial infarction [email or web address] Not available 03/03 12:49:12 Maternal Grandmother Family history of malignant neoplasm [email or web address] Not available 2023 12:49:12 Maternal Grandmother Hypertensive disorder [email or web address] Not available 2023 12:49:12 Maternal Grandfather Myocardial infarction Not available 03/03 12:49:12 Maternal Grandfather Cerebrovascu lar accident [email or web address] Not available 05/2024 12:49:12 Maternal Grandfather Diabetes mellitus Not available 2023 12:49:12 Father Depressive disorder Not available 2023 12:49:12 Father Diabetes mellitus [email or web address] Not available 2023 12:49:12 Medical History Condition [...] Diagnosis/Indication Diagnosis SNOMED-CT Code Diagnosis ICD10 Code Diagnosis Note [id number] Cee Raygoza PA-C [facility] [address] 07/12/2024 09:13:48 07/12/2024 12:10:27 Chronic combined systolic and diastolic heart failure 5603870764 63300 I50.42 STOP lisinopril 10mg tablets dailySTOP amlodipine 7.5mg tablets dailySTART Entresto 24-26mg tablet twice dailySTART Jardiance 10mg tablets dailyConti nue metoprolol succinate 25mg tablets at bedtime Benign ess ential hypertension 8726201 I10 Type 1 [place] betes mellitus 39646267 E10.9 Chronic ob structive pulmonary disease 15062957 J44.9 Mixed hyperlipidemia 267 451342 E78.2 Dyspnea 298348721 R06.00 History of syncope 36324 66461 62080 Z86.79 Health Concerns Section Related Observation LastModified by Organization Detai ls LastModified Time None Recorded Concern Status LastModified by Organization Details LastModified Time None Recorded Payers Encounter Date Sequence Insurance Name Policy Number Policy Rodriguez Covered Member ID Rodriguez Member ID Guarantor Name 07/12/2024 1 [place]: [employer] Christofer Pappas [id number] Christofer Pappas 07/12/2024 2 MEDICAID-[place]: [facility] Christofer Pappas [id number] Christofer Pappas Notes Date Note Type Note Provider Name and Address Organization Details Recorded Time 07/12/2024 text/html Christofer Pappas i s presenting to the office for a telemedicine follow up appointment to review his testing results. He has a past medical history of Diabetes mellitus since childhood on insulin pump, hypertension, hyperlipidemia, Asthma, COPD, Presumed diastolic heart failure. His last appointment in our office was on 05/31/24 with me. At this visit we discussed that his lower extremity had been well-controlled with the intermittent use of furosemide and he was making efforts to lose weight with diet and exercise and has lost over 125 pounds. He did provide a blood pressure log that revealed his blood pressure to be often greater than 140/90 and we discussed increasing his blood pressure medications and Christofer declined given his history of syncope with hypotension. He did report that he had had a cardiac MRI which revealed his ejection fraction to be 49% however we did not have this testing available we discussed that we would call him to discuss these results further once they were received by our office. Today, Christofer feels well. He has colonoscopy and endoscopy [...] extremity edema. ----treadmill nuclear stress test (PROC) [id number], echocardiogram, transthoracic, complete, w/ color flow [id number] 03/04/24 Cee Raygoza PA-C [address] [place] [address], [phone], [facility]. 07/12/2024 12:00:23
--- OUTSIDE RECORDS SUMMARY | 2024-09-01 11:56 | XMS_ITS ---
Author Name [facility] Organization Unknown History of Medication Use Medication Directions Dispensed Refills Start Date End Date Status LANTUS 100 UNIT/ML injection 50 Units daily. 4 active cephalexin (KEFLEX) 500 MG capsule Take 1 capsule (500 mg total) by mouth 4 (four) times a day for 7 days. 4 active lisinopril (PRINIVIL,ZESTRIL) 40 MG tablet 40 mg daily. 4 active pravastatin (PRAVACHOL) 80 MG tablet 80 mg daily. 4 active hydrochlorothiazide (HYDRODIURIL) tablet 25 mg Take 25 mg by mouth daily. 4 active ABILIFY 30 MG tablet 60 mg daily. 4 active cephalexin (KEFLEX) capsule 500 mg 500 mg, Oral, Once, On 11/16/23 at 2014, For 1 dose 4 completed NOVOLOG 100 UNIT/ML injection Sliding scale 4 active pregabalin (LYRICA) capsule 150 mg Take 150 mg by mouth 2 (two) times a day. 4 active atenolol (TENORMIN) 25 MG tablet 25 mg daily. 4 active sulfamethoxazole-trimeth oprim (BACTRIM DS) 800-160 MG per tablet 160 mg of trimethoprim 160 mg of trimethoprim (1 tablet), Oral, Once, On 11/16/23 at 2014, For 1 dose 4 completed sulfamethoxazole-trimeth oprim (BACTRIM DS) 800-160 MG per tablet Take 1 tablet (160 mg of trimethoprim total) by mouth 2 (two) times a day for 7 days. 4 active oxyCODONE-acetaminophen (PERCOCET) 5-325 MG per tablet Take 1 tablet by mouth every 4 (four) hours as needed for pain (1-2 tablets every 4-6 hours as needed for pain). 4 active PARoxetine (PAXIL) 30 MG tablet 60 mg daily. 4 active Problems Problem Status Onset Date Problem Type Date of Resoluti on Source Cellulitis active EncounterDiagnosisAct [facility]
--- OUTSIDE RECORDS SUMMARY | 2024-09-01 11:56 | XMS_ITS | Data Portability ---
Author Organization [facility] agri[employer]capital, svmg_admin Address [address] [place] [id number] Care Team Providers Care Finish Machine Tender Name Role Phone XOCHITL, DIALIA Primary Care Provider [phone] SHUBHAM PINEDA Specialist Physician LAVERNE UAMNA Specialist Physician [phone] Assessment Encounter Date Assessment Date Assessment LastModified [...] a nuclear stress test performed yesterday at [facility] and he is scheduled for an MRI [...] a small fixed apical defect most likely international representative of apical thinning. His cardiac MRI [...] serum or plasma 2023 024 [facility], [address], [address], [place], [address], 03/05/2024 08:09:11 AST/SGO T (aspart ate aminotr ansfera se), serum or plasma 2023 024 [facility], [address], [address], [place], [address], 03/05/2024 08:09:10 CK (creati ne kinase) , total, serum 2023 024 [facility], [address], [address], [place], [address], 03/05/2024 08:09:09 lipid panel, serum 2023 024 [facility], [address], [address], [place], [address], 03/05/2024 08:09:07 pro BNP (pro B-type natriur etic peptide ), serum or plasma 2023 024 [facility], [address], [address], [place], [address], 03/05/2024 08:09:09 BMP, serum or plasma 2023 024 [facility], [address], [address], [place], [address], 03/05/2024 08:09:08 CBC w/ auto diff 2023 024 [facility], [address], [address], [place], [address], 03/05/2024 08:09:07 lipid panel, serum 2023 024 [facility], [address], [address], [place], [address], 07/22/2024 08:08:13 AST/SGO T (aspart ate aminotr ansfera se), serum or plasma 2023 024 [facility], [address], [address], [place], [address], 07/22/2024 08:08:15 ALT (alanin e aminotr ansfera se), serum or plasma 2023 [facility], [address], [address], [place], [address], 07/22/2024 08:08:15 CK (creati ne kinase) , total, serum [address] [facility], [address], [address], [place], [address], 07/22/2024 08:08:14 BMP, serum or plasma 2023 024 [place] [facility], [address], [address], [place], [address], 07/22/2024 08:08:14 BMP, serum or plasma [address] [facility], [address], [address], [place], [address], 07/22/2024 08:08:19 pro BNP (pro B-type natriur etic peptide ), serum or plasma 2023 024 [facility], [address], [address], [place], [address], 07/22/2024 08:08:19 Referral None recorde d. Procedures None recorde d. Surgeries None recorde d. Imaging electro cardiog cj 2023 024 [facility] In-Office Order, Internal Use Only DO Not Attach Compendium DO Not Attach Compendium, Do Not Delete/merge, 03/04/2024 07:49:40 electro cardiog cj 2023 024 THIERRY In-Office Order, Internal Use Only DO Not Attach Compendium DO Not Attach Compendium, Do Not Delete/merge, [id number] 05/31/2024 14:40:11 Medication Orders Entrest o 24 mg-26 mg tablet 2023 024 [facility], [address] [place] [address], [address], 08/19/2024 17:19:42 Jardian ce 10 mg tablet 2023 024 [facility], [address] [place] [address], [address], 08/19/2024 17:19:28 Patient TargetsNo targets recorded. Patient Instructions Encounter Date Encounter Id Patient Instructions Last Modified By Organization Details Last Modified Time 03/03/2024 [id number] chest pain: care instructions rwholey Not available [...] 9 below low normal Not Available [facility] ([facility]) [address] [place], [address], 03/05/2024 08:09:07 03/04/2003/05/2024 CHOL+ TRIG+ HDL+L DL-D triglyceride s 75 mg/dL 0-149 normal Not Available [facility] ([facility]) [address] [place], [address], 03/05/2024 08:09:07 03/04/2003/05/2024 CHOL+ TRIG+ HDL+L DL-D HDL cholesterol 38 mg/dL >39 below low normal Not Available [facility] ([facility]) [address] [place], [address], 03/05/2024 08:09:07 03/04/20 24 03/05/2024 CHOL+ TRIG+ HDL+L DL-D LDL chol. (direct) 45 mg/dL 0-99 Not Available [facility] ([facility]) [address] [place], [address], 03/05/2024 08:09:07 03/04/20 24 03/05/2024 CHOL+ TRIG+ HDL+L DL-D LDL direct comment: REGIONAL AGRONOMIST Not Available [facility] ([facility]) [address] [facility], [place], [address], 03/05/2024 08:09:07 03/04/20 24 03/04/2024 CBC WITH DIFFE RENTI AL/PL ATELE T WBC 7.7 x10e3 /uL 3.4-10 .8 normal Not Available [facility] ([facility]) [address] [place], [address], 03/05/2024 08:09:07 03/04/20 24 03/04/2024 CBC WITH DIFFE RENTI AL/PL ATELE T RBC 4.74 x10e6 /uL 4.14-5 .80 normal Not Available [facility] ([facility]) [address] [place], [address], 03/05/2024 08:09:07 03/04/20 24 03/04/2024 CBC WITH DIFFE RENTI AL/PL ATELE T hemoglobin 14.2 g/dL 13.0-1 7.7 normal Not Available [facility] ([facility]) [address] [place], [address], 03/05/2024 08:09:07 03/04/20 24 03/04/2024 CBC WITH DIFFE RENTI AL/PL ATELE T hematocrit 45.5 % 37.5-5 1.0 normal Not Available [facility] ([facility]) [address] [place], [address], 03/05/2024 08:09:07 03/04/20 24 03/04/2024 CBC WITH DIFFE RENTI AL/PL ATELE T MCV 96 fL 79-97 normal Not Available [facility] ([facility]) [address] [facility], [place], [address], 03/05/2024 08:09:07 03/04/20 24 03/04/2024 CBC WITH DIFFE RENTI AL/PL ATELE T MCH 30.0 pg 26.6-3 3.0 normal Not Available [facility] ([facility]) [address] [facility], [place], [address], 03/05/2024 08:09:07 03/04/20 24 03/04/2024 CBC WITH DIFFE RENTI AL/PL ATELE T MCHC 31.2 g/dL 31.5-3 5.7 below low normal Not Available [facility] ([facility]) [address] [facility], [place], [address], 03/05/2024 08:09:07 03/04/20 24 03/04/2024 CBC WITH DIFFE RENTI AL/PL ATELE T RDW 12.6 % 11.6-1 5.4 Not Available [facility] ([facility]) [address] [facility], [place], [address], 03/05/2024 08:09:07 03/04/20 24 03/04/2024 CBC WITH DIFFE RENTI AL/PL ATELE T platelets 216 x10e3 /uL 150-45 0 normal Not Available [facility] ([facility]) [address] [facility], [place], [address], 03/05/2024 08:09:07 03/04/20 24 03/04/2024 CBC WITH DIFFE RENTI AL/PL ATELE T neutrophils 64 % not estab. normal Not Available [facility] ([facility]) [address] [facility], [place], [address], 03/05/2024 08:09:07 03/04/20 24 03/04/2024 CBC WITH DIFFE RENTI AL/PL ATELE T lymphs 26 % not estab. normal Not Available [facility] ([facility]) [address] [facility], [place], [address], 03/05/2024 08:09:07 03/04/20 24 03/04/2024 CBC WITH DIFFE RENTI AL/PL ATELE T monocytes 9 % not estab. normal Not Available [facility] ([facility]) [address] [facility], [place], [address], 03/05/2024 08:09:07 03/04/20 24 03/04/2024 CBC WITH DIFFE RENTI AL/PL ATELE T eos 1 % not estab. normal Not Available [facility] ([facility]) [address] [facility], [place], [address], 03/05/2024 08:09:07 03/04/20 24 03/04/2024 CBC WITH DIFFE RENTI AL/PL ATELE T basos 0 % not estab. normal Not Available [facility] ([facility]) [address] [facility], [place], [address], 03/05/2024 08:09:07 03/04/20 24 03/04/2024 CBC WITH DIFFE RENTI AL/PL ATELE T immature cells REGIONAL AGRONOMIST Not Available [facility]) [address] [facility], [place], [address], 03/05/2024 08:09:07 03/04/20 24 03/04/2024 CBC WITH DIFFE RENTI AL/PL ATELE T neutrophils (absolute) 4.9 x10e3 /uL 1.4-7. 0 normal Not Available [facility] ([facility]) [address] [facility], [place], [address], 03/05/2024 08:09:07 03/04/20 24 03/04/2024 CBC WITH DIFFE RENTI AL/PL ATELE T lymphs (absolute) 2.0 x10e3 /uL 0.7-3. 1 normal Not Available [facility] ([facility]) [address] [facility], [place], [address], 03/05/2024 08:09:07 03/04/20 24 03/04/2024 CBC WITH DIFFE RENTI AL/PL ATELE T monocytes(ab solute) 0.7 x10e3 /uL 0.1-0. 9 normal Not Available [facility] ([facility]) [address] [facility], [place], [address], 03/05/2024 08:09:07 03/04/20 24 03/04/2024 CBC WITH DIFFE RENTI AL/PL ATELE T eos (absolute) 0.1 x10e3 /uL 0.0-0. 4 normal Not Available [facility] ([facility]) [address] [facility], [place], [address], 03/05/2024 08:09:07 03/04/20 24 03/04/2024 CBC WITH DIFFE RENTI AL/PL ATELE T baso (absolute) 0.0 x10e3 /uL 0.0-0. 2 normal Not Available [facility] ([facility]) [address] [facility], [place], [address], 03/05/2024 08:09:07 03/04/20 24 03/04/2024 CBC WITH DIFFE RENTI AL/PL ATELE T immature granulocytes 0 % not estab. Not Available [facility] ([facility]) [address] [facility], [place], [address], 03/05/2024 08:09:07 03/04/20 24 03/04/2024 CBC WITH DIFFE RENTI AL/PL ATELE T immature grans (abs) 0.0 x10e3 /uL 0.0-0. 1 Not Available [facility] ([facility]) [address] [place], [address], 03/05/2024 08:09:07 03/04/20 24 03/04/2024 CBC WITH DIFFE RENTI AL/PL ATELE T NRBC REGIONAL AGRONOMIST Not Available [facility] ([facility]) [address] [facility], [place], [address], 03/05/2024 08:09:07 03/04/20 24 03/04/2024 CBC WITH DIFFE RENTI AL/PL ATELE T hematology comments: REGIONAL AGRONOMIST Not Available [facility] ([facility]) [address] [facility], [place], [address], 03/05/2024 08:09:07 03/04/20 24 03/05/2024 BASIC METAB OLIC PANEL (8) glucose 95 mg/dL 70-99 normal Not Available [facility] ([facility]) [address] [facility], [place], [address], 03/05/2024 08:09:08 03/04/20 24 03/05/2024 BASIC METAB OLIC PANEL (8) BUN 15 mg/dL 6-24 normal Not Available [facility] ([facility]) [address] [facility] [place], [address], 03/05/2024 08:09:08 03/04/20 24 03/05/2024 BASIC METAB OLIC PANEL (8) creatinine 1.08 mg/dL 0.76-1 .27 normal Not Available [facility] ([facility]) [address] [facility], [place], [address], 03/05/2024 08:09:08 03/04/20 24 03/05/2024 BASIC METAB OLIC PANEL (8) eGFR 85 mL/mi n/1.7 3 >59 normal Not Available [facility] ([facility]) [address] [facility], [place], [address], 03/05/2024 08:09:08 03/04/20 24 03/05/2024 BASIC METAB OLIC PANEL (8) BUN/creatini ne ratio 14 9-20 normal Not Available [facility] ([facility]) [address] [facility] [place], [address], 03/05/2024 08:09:08 03/04/20 24 03/05/2024 BASIC METAB OLIC PANEL (8) sodium 139 mmol/ L 134-14 4 normal Not Available [facility] ([facility]) [address] [facility] [place], [address], 03/05/2024 08:09:08 03/04/20 24 03/05/2024 BASIC METAB OLIC PANEL (8) potassium 4.6 mmol/ L 3.5-5. 2 normal Not Available [facility] ([facility]) [address] [facility] [place], [address], 03/05/2024 08:09:08 03/04/20 24 03/05/2024 BASIC METAB OLIC PANEL (8) chloride 100 mmol/ L 96-106 normal Not Available [facility] ([facility]) [address] [facility] [place], [address], 03/05/2024 08:09:08 03/04/20 24 03/05/2024 BASIC METAB OLIC PANEL (8) carbon dioxide, total 27 mmol/ L 20-29 normal Not Available [facility] ([facility]) [address] [facility] [place], [address], 03/05/2024 08:09:08 03/04/20 24 03/05/2024 BASIC METAB OLIC PANEL (8) calcium 9.4 mg/dL 8.7-10 .2 normal Not Available [facility] ([facility]) [address] [facility] [place], [address], 03/05/2024 08:09:08 03/04/20 24 03/05/2024 NT-ME OBNP nt-probnp <36 pg/mL 0-121 The follo [...] enden t 300 pg/mL Not Available [facility] ([facility]) [address] [place], [address], 03/05/2024 08:09:09 03/04/20 24 03/05/2024 CK creatine kinase,total 173 U/L 49-439 normal Not Available [facility] ([facility]) [address] [place], [address], 03/05/2024 08:09:09 03/04/20 24 03/05/2024 AST (SGOT ) AST (SGOT) 23 IU/L 0-40 normal Not Available [facility] ([facility]) [address] [place], [address], 03/05/2024 08:09:10 03/04/20 24 03/05/2024 ALT (SGPT ) ALT (SGPT) 28 IU/L 0-44 normal Not Available [facility] ([facility]) [address] [place], [address], 03/05/2024 08:09:11 07/21/20 24 07/21/2024 CHOL+ TRIG+ HDL+L DL-D cholesterol, total 98 mg/dL 100-19 9 below low normal Not Available [facility] ([facility]) [address] [place], [address], 07/22/2024 08:08:13 07/21/20 24 07/21/2024 CHOL+ TRIG+ HDL+L DL-D triglyceride s 68 mg/dL 0-149 normal Not Available [facility] ([facility]) [address] [place], [address], 07/22/2024 08:08:13 07/21/20 24 07/21/2024 CHOL+ TRIG+ HDL+L DL-D HDL cholesterol 35 mg/dL >39 below low normal Not Available [facility] ([facility]) [address] [place], [address], 07/22/2024 08:08:13 07/21/20 24 07/22/2024 CHOL+ TRIG+ HDL+L DL-D LDL chol. (direct) 48 mg/dL 0-99 Not Available [facility] ([facility]) [address] [place], [address], 07/22/2024 08:08:13 07/21/2007/22/2024 CHOL+ TRIG+ HDL+L DL-D LDL direct comment: REGIONAL AGRONOMIST Not Available [facility] ([facility]) [address] [place], [address], 07/22/2024 08:08:13 07/21/20 24 07/21/2024 BASIC METAB OLIC PANEL (8) glucose 49 mg/dL 70-99 below low normal Not Available [facility] ([facility]) [address] [place], [address], 07/22/2024 08:08:14 07/21/2007/21/2024 BASIC METAB OLIC PANEL (8) BUN 16 mg/dL 6-24 normal Not Available [facility] ([facility]) [address] [place], [address], 07/22/2024 08:08:14 07/21/20 24 07/21/2024 BASIC METAB OLIC PANEL (8) creatinine 1.03 mg/dL 0.76-1 .27 normal Not Available [facility] ([facility]) [address] [place], [address], 07/22/2024 08:08:14 07/21/20 24 07/21/2024 BASIC METAB OLIC PANEL (8) eGFR 90 mL/mi n/1.7 3 >59 normal Not Available [facility] ([facility]) [address], [place], [address], 07/22/2024 08:08:14 07/21/20 24 07/21/2024 BASIC METAB OLIC PANEL (8) BUN/creatini ne ratio 16 9-20 normal Not Available [facility] ([facility]) [address] [facility], [place], [address], 07/22/2024 08:08:14 07/21/20 24 07/21/2024 BASIC METAB OLIC PANEL (8) sodium 140 mmol/ L 134-14 4 normal Not Available [facility] ([facility]) [address] [facility], [place], [address], 07/22/2024 08:08:14 07/21/20 24 07/21/2024 BASIC METAB OLIC PANEL (8) potassium 4.1 mmol/ L 3.5-5. 2 normal Not Available [facility] ([facility]) [address] [facility], [place], [address], 07/22/2024 08:08:14 07/21/20 24 07/21/2024 BASIC METAB OLIC PANEL (8) chloride 101 mmol/ L 96-106 normal Not Available [facility] ([facility]) [address] [facility], [place], [address], 07/22/2024 08:08:14 07/21/20 24 07/21/2024 BASIC METAB OLIC PANEL (8) carbon dioxide, total 28 mmol/ L 20-29 normal Not Available [facility] ([facility]) [address] [facility], [place], [address], 07/22/2024 08:08:14 07/21/20 24 07/21/2024 BASIC METAB OLIC PANEL (8) calcium 9.4 mg/dL 8.7-10 .2 normal Not Available [facility] ([facility]) [address] [place], [address], 07/22/2024 08:08:14 07/21/20 24 07/22/2024 CK creatine kinase,total 335 U/L 49-439 normal Not Available [facility] ([facility]) [address] [place], [address], 07/22/2024 08:08:14 07/21/20 24 07/21/2024 AST (SGOT ) AST (SGOT) 27 IU/L 0-40 normal Not Available [facility] ([facility]) [address] [place], [address], 07/22/2024 08:08:15 07/21/20 24 07/21/2024 ALT (SGPT ) ALT (SGPT) 24 IU/L 0-44 normal Not Available [facility] ([facility]) [address] [place], [address], 07/22/2024 08:08:15 07/21/20 24 07/22/2024 BASIC METAB OLIC PANEL (8) glucose 48 mg/dL 70-99 below low normal Not Available [facility] ([facility]) [address] [place], [address], 07/22/2024 08:08:19 07/21/2007/22/2024 BASIC METAB OLIC PANEL (8) BUN 16 mg/dL 6-24 normal Not Available [facility] ([facility]) [address] [place], [address], 07/22/2024 08:08:19 07/21/20 24 07/22/2024 BASIC METAB OLIC PANEL (8) creatinine 0.97 mg/dL 0.76-1 .27 normal Not Available [facility] ([facility]) [address] [facility], [address], 07/22/2024 08:08:19 07/21/20 24 07/22/2024 BASIC METAB OLIC PANEL (8) eGFR 96 mL/mi n/1.7 3 >59 normal Not Available [facility] ([facility]) [address], [place], [address], 07/22/2024 08:08:19 07/21/20 24 07/22/2024 BASIC METAB OLIC PANEL (8) BUN/creatini ne ratio 16 9-20 normal Not Available [facility] ([facility]) [address] [facility], [place], [address], 07/22/2024 08:08:19 07/21/2007/22/2024 BASIC METAB OLIC PANEL (8) sodium 141 mmol/ L 134-14 4 normal Not Available [facility] ([facility]) [address] [facility], [place], [address], 07/22/2024 08:08:19 07/21/2007/22/2024 BASIC METAB OLIC PANEL (8) potassium 4.1 mmol/ L 3.5-5. 2 normal Not Available [facility] ([facility]) [address] [facility], [place], [address], 07/22/2024 08:08:19 07/21/2007/22/2024 BASIC METAB OLIC PANEL (8) chloride 101 mmol/ L 96-106 normal Not Available [facility] ([facility]) [address] [facility], [place], [address], 07/22/2024 08:08:19 07/21/2007/22/2024 BASIC METAB OLIC PANEL (8) carbon dioxide, total 26 mmol/ L 20-29 normal Not Available [facility] ([facility]) [address] [facility] [place], [address], 07/22/2024 08:08:19 07/21/2018 0707/22/2024 BASIC METAB OLIC PANEL (8) calcium 9.6 mg/dL 8.7-10 .2 normal Not Available [facility] ([facility]) [address] [place], [address], 07/22/2024 08:08:19 07/21/20 24 07/22/2024 NT-ME OBNP nt-probnp <36 pg/mL 0-121 The follo [...] enden t 300 pg/mL Not Available [facility] ([facility]) [address] [place], [address], 07/22/2024 08:08:19 08/17/20 24 08/17/2024 BASIC METAB OLIC PANEL (8) glucose 55 mg/dL 70-99 below low normal Not Available [facility] ([facility]) [address] [place], [address], 08/17/2024 23:05:20 08/17/20 24 08/17/2024 BASIC METAB OLIC PANEL (8) BUN 16 mg/dL 6-24 normal Not Available [facility] ([facility]) [address] [place], [address], 08/17/2024 23:05:20 08/17/20 24 08/17/2024 BASIC METAB OLIC PANEL (8) creatinine 1.07 mg/dL 0.76-1 .27 normal Not Available [facility] ([facility]) [address] [facility], [place], [address], 08/17/2024 23:05:20 08/17/20 24 08/17/2024 BASIC METAB OLIC PANEL (8) eGFR 86 mL/mi n/1.7 3 >59 normal Not Available [facility] ([facility]) [address] [facility], [place], [address], 08/17/2024 23:05:20 08/17/20 24 08/17/2024 BASIC METAB OLIC PANEL (8) BUN/creatini ne ratio 15 9-20 normal Not Available [facility] ([facility]) [address] [facility] [place], [address], 08/17/2024 23:05:20 08/17/20 24 08/17/2024 BASIC METAB OLIC PANEL (8) sodium 139 mmol/ L 134-14 4 normal Not Available [facility] ([facility]) [address] [facility] [place], [address], 08/17/2024 23:05:20 08/17/20 24 08/17/2024 BASIC METAB OLIC PANEL (8) potassium 4.7 mmol/ L 3.5-5. 2 normal Not Available [facility] ([facility] [facility]) [address] [facility] [place], [address], 08/17/2024 23:05:20 08/17/20 24 08/17/2024 BASIC METAB OLIC PANEL (8) chloride 100 mmol/ L 96-106 normal Not Available [facility] ([place] [facility]) [address] [facility] [place], [address], 08/17/2024 23:05:20 08/17/20 24 08/17/2024 BASIC METAB OLIC PANEL (8) carbon dioxide, total 30 mmol/ L 20-29 above high normal Not Available [facility] ([facility] [facility]) [address] [facility] [place], [address], 08/17/2024 23:05:20 08/17/20 24 08/17/2024 BASIC METAB OLIC PANEL (8) calcium 9.8 mg/dL 8.7-10 .2 normal Not Available [facility] ([facility]) [address] [facility], [place], [address], 08/17/2024 23:05:20 08/17/20 24 08/17/2024 HEMOG LOBIN A1C hemoglobin A1C 5.6 % 4.8-5. 6 normal Predi abete s: 5.7 - 6.4 Diabe shannan: >6.4 Glyce saritha contr ol for adult s with diabe shannan: <7.0 Not Available [facility] ([facility]) [address] [facility], [place], [address], 08/17/2024 23:05:21 03/02/20 24 12/01/2023 US, echo ardio gram, trans thora cic, compl ete, w/ color flow No observ ation record ed. [email or web address] Not Available 03/02 16:15:59 03/02/20 24 05/16/2023 elect rocar diogr am No observ ation record ed. [email or web address] Not Available 03/02 16:17:37 03/03/20 elect rocar diogr am No observ ation record ed. [email or web address] In-Office Order Internal Use Only DO Not Attach Compendium DO Not Attach Compendium, Do Not Delete/merge, [id number] 03/03/2024 12:49:47 03/05/20 24 03/03/2024 elect rocar diogr am No observ ation record ed. BARCODE Not Available 2023 13:59:56 05/31/20 elect rocar diogr am No observ ation record ed. [email or web address] In-Office Order Internal Use Only DO Not Attach Compendium DO Not Attach Compendium, Do Not Delete/merge, [id number] 05/31/2024 13:19:36 06/08/20 24 05/31/2024 elect rocar [...] Organization Details Recorded Time Mixed hyperlipid emia 181675304 Active 2023 Natasha aceves [facility] 4 15:20:19 Benign essential hypertensi on 2416747 Active 2023 Natasha aceves [facility] 4 15:20:19 Dyspnea 919442197 Active 2023 Natasha aceves [facility] 4 15:20:20 Chest pain 55435763 Active 2023 Natasha aceves [facility] 4 15:20:22 Chronic combined systolic and diastolic heart failure 893414150687 100 Active 2023 Natasha aceves [facility] 4 15:20:23 Type 1 diabetes mellitus 93749939 Active 2023 Cee Raygoza PA-C [address] [place] [address], [phone], [facility] 4 12:15:11 Obstructiv e sleep apnea syndrome 61600737 Active on biPAP Cee Raygoza PA-C [address] [place], [phone], [facility] 4 12:16:31 Chronic obstructiv e pulmonary disease 07790091 Active 2023 Cee Raygoza PA-C [address] [place] [address], [phone], [facility] 12:16:46 Problem Notes None recorded. Procedures Surgical History Date Name Laterality Status Provider Name and Address Organization Details Recorded Time Hernia Repair completed Laura Valles [facility] 03/01/2024 16:37:06 Imaging Results Imaging Date Name Status LastModified by Organization Details LastModified Time 12/01/2023 US, echocardiogram, transthoracic, complete, w/ color flow completed Information not available 03/02/2024 16:15:59 05/16/2023 electrocardiogram completed Informa tion not available 03/02/2024 16:17:37 03/03/2024 electrocardiogram completed [email or web address] In-Offi ce Order Internal Use Only DO Not Attach Compendium DO Not Attach Compendium, Do Not Delete/merge, [id number] 03/03/2024 12:49:47 03/03/2024 electrocardiogram completed BARCODE Informa tion not available 03/05/2024 13:59:56 05/31/2024 electrocardiogram completed [email or web address] In-Offi ce Order Internal Use Only DO Not Attach Compendium DO Not Attach Compendium, Do Not Delete/merge, [id number] 05/31/2024 13:19:36 05/31/2024 electrocardiogram completed BARCODE Informa [...] Name and Address Organization Details Recorded Time 608777 Compazine medicatio n Not available Not available Not available 03/01/202466398 6 RxNorm sever e muscl e spasm Laura aceves [facility] 07/08/202 4 16:29:57 755807 Imitrex medicatio n Not available Not available Not available 03/01/2024 33744 3 RxNorm Laura aceves [facility] 4 16:30:08 494488 Motrin medicatio n Not available Not available Not available 03/01/2024 88009 8 RxNorm can' t take- harmf ul to my lexne kelly aceves, [facility] 4 16:30:51 527117 Non-stero idal anti-infl ammatory agent (product) medicatio n other Not available Not available 03/01/2024 45333 005 [facility] 12:[facility]07 500363 Toradol medicatio n Not available Not available Not available 03/01/2024 61526 RxNorm can' t take- harmf ul to my lexne kelly aceves, [facility] 4 16:31:19 406899 Wellbutri n medicatio n Not available Not available Not available 03/01/2024 04009 [facility] 4 16:32:29 697012 codeine medicatio n itching Not available Not available 03/01/2024 2670 RxNorm Kortney Christianst ketan [facility] 4 12:49:07 315390 ibuprofen medicatio n other Not available Not available 03/03/2024 5640 RxNorm Kortney Roel aceves, [facility] 4 12:49:07 742473 POLLEN EXTRACTS environme nt,medica tion Not available Not available Not available 03/03/2024 05961 6 RxNorm Kortney Roel aceves, [facility] 4 12:49:07 584431 cat dander environme nt Not available Not available Not available 03/03/2024 Kortney aceves [facility] 4 12:49:07 990354 mold extract environme nt Not available Not available Not available 03/03/2024 97753 8 RxNorm Kortney aceves [facility] 4 12:49:07 916709 cigarette smoke environme nt Not available Not available Not available 03/03/2024 Kortney aceves [facility] 4 12:49:07 Medications Name Sig [...] Address Organization Details Last Updated DateTime 4 588197. 19 g 36.4 kg/m2 182.88 cm 72 /min 118 mm[Hg] 70 mm[Hg] 122 mm[Hg] 74 mm[Hg] Kortney Sevilla [facility]. 13:16:36 Date Recorded Body height Body mass index (BMI) Body weight Oxygen saturation Oxygen saturation in Arterial blood by Pulse oximetry Heart rate Systolic blood pressure Diastolic blood pressure Provider Name and Address Organization Details Last Updated DateTime 4 182.88 cm 34.3 kg/m2 351564. 87 g 97 % 97 % 77 /min 130 mm[Hg] 74 mm[Hg] Mary Roy [facility] 13:42:07 Date Recorded Body height Body mass index (BMI) Body weight Provider Name and Address Organization Details Last Updated DateTime 07/12/2024 182.88 cm 32.4 kg/m2 757349.58 g Zari Li [facility] 07/12/2024 10:12:40 Social History Question Answer Notes LastModified by [employer] Details LastModified Time Tobacco Smoking Status Never Smoker Kortney Sevilla [facility] 03/03/2024 12:49:23 Do You Have An Advance Directive? No [email or web address] Information not available 03/03/2024 What Is Your Level Of Alcohol Consumption? None [email or web address] Information not available 03/03/2024 Are You Blind Or Do You Have Difficulty Seeing? No Information not available 03/03/2024 Is Blood Transfusion Acceptable In An Emergency? Yes [email or web address] Information not available 03/03/2024 What Is Your Level Of Caffeine Consumption? Occasional [email or web address] Information not available 03/03/2024 Are You Currently Employed? No Information not available 03/03/2024 Are You Deaf Or Do You Have Serious Difficulty Hearing? No [email or web address] Information not available 03/03/2024 What Type Of Diet Are You Following? SPECIFIC [email or web address] Information not available 03/03/2024 Which Of Your Hands Is Dominant? Left Information not available 03/03/2024 What Was The Date Of Your Most Recent Tobacco Screening? 05/31/2024 [email or web address] Information not available 05/31/2024 Do You Have Any Pets? Yes Information not available 03/03/2024 What Is Your Relationship Status? Single [email or web address] Information not available 03/03/2024 Do You Feel Stressed (tense, Restless, Nervous, Or Anxious, Or Unable To Sleep At Night)? [id number] [email or web address] Information not available 03/03/2024 Do You Use Any Illicit Or Recreational Drugs? No [email or web address] Information not available 03/03/2024 Do You Or Have You Ever Used Any Other Forms Of Tobacco Or Nicotine? No [email or web address] Information not available 03/03/2024 Sex: Unknown Functional Status Question Answer Note LastModified by [email or web address] Details LastModified Time Are you able to care for yourself? No [email or web address] Information not available 03/03/2024 What is your exercise level? Occasional [email or web address] Information not available 03/03/2024 Mental Status None recorded. Family History Relationship Description Onset Age of this Age Resolved Age Notes LastModified by Organization Details LastModified Time Mother Depressive disorder [email or web address] Not available 2023 12:49:12 Unspecified Relation Malignant tumor of colon [email or web address] Not available 2023 12:49:12 Unspecified Relation Hyperlipidem ia [email or web address] Not available 2023 12:49:12 Maternal Grandmother Myocardial infarction [email or web address] Not available 03/03 12:49:12 Maternal Grandmother Family history of malignant neoplasm Not available 2023 12:49:12 Maternal Grandmother Hypertensive disorder [email or web address] Not available 2023 12:49:12 Maternal Grandfather Myocardial infarction Not available 03/03 12:49:12 Maternal Grandfather Cerebrovascu lar accident [email or web address] Not available 05/2024 12:49:12 Maternal Grandfather Diabetes mellitus Not available 2023 12:49:12 Father Depressive disorder [email or web address] Not available 2023 12:49:12 Father Diabetes mellitus Not available 2023 12:49:12 Medical History Condition [...] SNOMED-CT Code Diagnosis ICD10 Code Diagnosis Note [id number] Shubham Pineda MD [facility] [address] [place] [id number] 03/03/2024 12:39:58 03/03/2024 14:27:57 Chronic combined systolic and diastolic heart failure 3243157747 70039 I50.42 Chest pain 69474452 R07. 2 Dyspnea 970901010 R06.02 Benign ess ential hypertension 5346486 I10 Mixed hyperlipidemia 267 090602 E78.2 Type 2 [place] mellitus without complication 004761485 E11.9 [id number] Cee Raygoza PA-C [facility] [address] [address] 05/31/2024 13:17:52 05/31/2024 14:35:17 Chronic diastolic heart failure 419105833 I50.32 Benign ess ential hypertension 9334271 I10 Mixed hyperlipidemia 267 043442 E78.2 Type 1 [place] mellitus 74690629 E10.9 Edema of l ower extremity 401350756 R60.0 [id number] Cee Raygoza PA-C [facility] [address] [facility] [place] [address] 07/12/2024 09:13:48 07/12/2024 12:10:27 Chronic combined systolic and diastolic heart failure 9246078052 80405 I50.42 STOP lisinopril 10mg tablets dailySTOP amlodipine 7.5mg tablets dailySTART Entresto 24-26mg tablet twice dailySTART Jardiance 10mg tablets dailyConti nue metoprolol succinate 25mg tablets at bedtime Benign ess ential hypertension 6472991 I10 Type 1 [place] mellitus 00201108 E10.9 Chronic ob structive pulmonary disease 81252856 J44.9 Mixed hyperlipidemia 267 305591 E78.2 Dyspnea 327365416 R06.00 History of syncope 84759 09866 14916 Z86.79 Health Concerns Section Related Observation LastModified by Organization Detai ls LastModified Time None Recorded Concern Status LastModified by Organization Details LastModified Time None Recorded Advance Directives Directive N: Payers Encounter Date Sequence Insurance Name Policy Number Policy Rodriguez Covered Member ID Rodriguez Member ID Guarantor Name 03/03/2024 1 [place] [employer] Shubham Pappas [id number] Shubham Pappas 03/03/2024 2 [place] [facility] Shubham Pappas [id number] hSubham Pappas 05/31/2024 1 [place] [employer] Shubham Pappas [id number] Shubham Pappas 05/31/2024 2 [place] [facility] Shubham Pappas [id number] Shubham Pappas 07/12/2024 1 [place] [employer] Shubham Pappas [id number] Shubham Pappas 07/12/2024 2 [place] [facility] Shubham Pappas [id number] Shubham Pappas Notes Date Note Type Note [...] is still following with Dr. Umana in [place], [place] for local care. He may be [...] pillows at night, lower extremity edema. ----ECHO [id number] 03/04/24 BOGDAN Tomlinson-[address], [address], [facility] Physician [facility]. 06/02/2024 13:21:03 07/12/2024 text/html Shubham ace presenting to the office for a telemedicine [...] extremity edema. ----treadmill nuclear stress test (PROC) [id number], echocardiogram, transthoracic, complete, w/ color flow [id number] 03/04/24 BOGDAN Tomlinson-Gabby [address] [place] [address], [phone], [facility] - [facility] Physician Services [facility]. 07/12/2024 12:00:23
--- OUTSIDE RECORDS SUMMARY | 2024-09-01 11:56 | XMS_ITS | Continuity of Care Document ---
Author Organization [facility] Address [address] [place] [address] Phone [phone] Social History Type Date Description Comments Sex Unknown Medical Devices Description No Information Available Encounters Description No Information Available Assessments Description No Information Available Plan of Treatment No Information Available Functional Status Description No Information Available Mental Status Description No Information Available Referrals Description No Information Available
--- OUTSIDE RECORDS SUMMARY | 2024-09-01 11:57 | XMS_ITS | Clinical Summary ---
Author Organization Unknown Care Team Providers Care Pharmacy Grad Intern Name Role Phone JOHANNY CARDENAS, ADIS Unavailable Unavailable ERIC RN, KATLYN Unavailable Unavailable JUAN CARLOS FIELD ENUMERATOR, SRINIVASAN Unavailable Unavailable SANJANA PT, LYUDMILA Unavailable Unavailable SPAFFJERZY OT, LIO Unavailable Unavailable CLAUDIA FIELD ENUMERATOR, CHI Unavailable Unavailable CONDINO EPOXY SPECIALIST/BARRON, TEENA Unavailable Unav ailable Payers Payer Name Policy Type Policy Number Effective Date Expira tion Date MEDICARE.[facility].PDGM [id number] Problems Condition Name Condition Details Condition Category Status Onset Date Resolution Date Last Treatment Date Treating Clinician Comments TYPE 1 DIABETES MELLITUS WITH HYPERGLYCEMI A Active 2020-08 2 00:00: 00 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 Active 05-08 00:00: 00 PRIMARY OSTEOARTHRIT IS, RIGHT ANKLE AND FOOT Active 04-04 00:00: 00 PAIN IN RIGHT ANKLE AND JOINTS OF RIGHT FOOT Active 04-04 00:00: 00 OTHER CHRONIC PAIN Active 04-06 00:00: 00 GASTROPARESI S Active 04-06 00:00: 00 HYPERTENSIVE HEART DISEASE WITH HEART FAILURE Active 04-06 00:00: 00 UNSPECIFIED DIASTOLIC (CONGESTIVE) HEART FAILURE Active 8 00:00: 00 UNSPECIFIED ASTHMA, UNCOMPLICATE D Active 8 00:00: 00 HYPERLIPIDEM IA, UNSPECIFIED Active 8 00:00: 00 GASTRO-ESOPH AGEAL REFLUX DISEASE WITHOUT ESOPHAGITIS Active 04-06 00:00: 00 MIGRAINE, UNSP, NOT INTRACTABLE, WITHOUT STATUS MIGRAINOSUS Active 8 00:00: 00 ANXIETY DISORDER, UNSPECIFIED Active 8 00:00: 00 MAJOR DEPRESSIVE DISORDER, SINGLE EPISODE, UNSPECIFIED Active 8 00:00: 00 MORBID (SEVERE) OBESITY DUE TO EXCESS CALORIES Active 04-06 00:00: 00 SLEEP APNEA, UNSPECIFIED Active 04-06 00:00: 00 CHEST PAIN, UNSPECIFIED Active 04-06 00:00: 00 HISTORY OF FALLING Active 04-06 00:00: 00 PRESENCE OF INSULIN PUMP (EXTERNAL) (INTERNAL) Active 05-08 00:00: 00 Allergies, Adverse Reactions, Alerts Allergy Name Allergy Type Status Severity Reaction(s) Onset Date Inactive Date Treating Clinician Comments CODEINE Propensity to adverse reactions Active 04-06 15:36: 18 COMPAZINE Propensity to adverse reactions Active 04-06 15:36: 31 IBUPROFEN Propensity to adverse reactions Active 04-06 15:36: 45 IMITREX Propensity to adverse reactions Active 04-06 15:36: 59 NSAIDS Propensity to adverse reactions Active 04-06 15:37: 10 TORADOL Propensity to adverse reactions Active 04-06 15:37: 27 WELLBUTRIN SR Propensity to adverse reactions Active 04-06 15:37: 45 Medications Ordered Medication Name Filled Medication Name Start Date Stop Date Current Medication? Ordering Clinician Indication Dosage Frequency Signature (SIG) Comments Components diclofenac 1 % topical gel 03-03 00:00: 00 Yes [id number] PAIN Per instruc tions FOUR TIMES DAILY Per instructio ns FOUR TIMES DAILY (route: topical) Med Classific ation: Dermatolo gical Arnuity Ellipta 100 mcg/actuati on powder for inhalation 03-05 00:00: 00 Yes [id number] ASTHMA Per instruc tions EVERY DAY Per instructio ns EVERY DAY (route: inhalation ) Med Classific ation: Respirato ry Therapy Agents Baqsimi 3 mg/actuatio n nasal spray 03-20 00:00: 00 Yes [id number] LOW BLOOD SUGAR Per instruc tions ONCE Per instructio ns ONCE (route: nasal) Med Classific ation: Endocrine prednisolon e acetate 1 % eye drops,suspe nsion 04-03 00:00: 00 Yes [id number] EYE INFLAMMATIO N Per instruc tions 2 TIMES DAILY Per instructio ns 2 TIMES DAILY (route: ophthalmic (eye)) Med Classific ation: Ophthalmi c Agents potassium chloride ER 20 mEq tablet,exte nded release(par t/cryst) 03-05 00:00: 00 06-04 23:59 :00 No [id number] CARDIAC Per instruc tions EVERY DAY WITH FOOD DIRECTED Per instructio ns EVERY DAY WITH FOOD DIRECTED (route: oral) Med Classific ation: Electroly te Balance-N utritiona l Products pregabalin 150 mg capsule 01-30 00:00: 00 Yes [id number] NEUROPATHY Per instruc tions 3 TIMES DAILY Per instructio ns 3 TIMES DAILY (route: oral) Med Classific ation: Central Nervous System Agents aripiprazol e 30 mg tablet 12-28 00:00: 00 04-06 00:00 :00 No [id number] Per instruc tions DAILY Per instructio ns DAILY (route: oral) Med Classific ation: Central Nervous System Agents lisinopril 40 mg tablet 01-27 00:00: 00 Yes [id number] HTN Per instruc tions DAILY Per instructio ns DAILY (route: oral) Med Classific ation: Cardiovas cular Therapy Agents amlodipine 10 mg tablet 12-28 00:00: 00 04-06 00:00 :00 No [id number] Per instruc tions EVERY DAY Per instructio ns EVERY DAY (route: oral) Med Classific ation: Cardiovas cular Therapy Agents methocarbam ol 500 mg tablet 03-06 00:00: 00 04-06 00:00 :00 No [id number] FOR MUSCLE SPASM Per instruc tions EVERY 6 HOURS NEEDED Per instructio ns EVERY 6 HOURS NEEDED (route: oral) Med Classific ation: Locomotor System chlorthalid one 25 mg tablet 01-27 00:00: 00 06-04 00:00 :00 No [id number] HTN Per instruc tions EVERY DAY Per instructio ns EVERY DAY (route: oral) Med Classific ation: Cardiovas cular Therapy Agents atorvastati n 40 mg tablet 12-28 00:00: 00 Yes [id number] HLD Per instruc tions EVERY DAY Per instructio ns EVERY DAY (route: oral) Med Classific ation: Cardiovas cular Therapy Agents furosemide 20 mg tablet 12-28 00:00: 00 06-04 23:59 :00 No [id number] CHF Per instruc tions DAILY Per instructio ns DAILY (route: oral) Med Classific ation: Cardiovas cular Therapy Agents furosemide 80 mg tablet 6 00:00: 00 04-06 00:00 :00 No [id number] Per instruc tions TWICE DAILY Per instructio ns TWICE DAILY (route: oral) Med Classific ation: Cardiovas cular Therapy Agents peg-electro lyte solution 420 gram oral solution 03-29 00:00: 00 04-06 00:00 :00 No [id number] Per instruc tions Per instructio ns (route: oral) Med Classific ation: Gastroint estinal Therapy Agents pantoprazol e 40 mg tablet,james yed release 01-19 00:00: 00 Yes [id number] GERD Per instruc tions EVERY DAY Per instructio ns EVERY DAY (route: oral) Med Classific ation: Gastroint estinal Therapy Agents oxycodone 5 mg tablet 02-28 00:00: 00 04-06 00:00 :00 No [id number] Per instruc tions TWICE DAILY NEEDED Per instructio ns TWICE DAILY NEEDED (route: oral) Med Classific ation: Analgesic , Anti-infl ammatory or Antipyret ic bisacodyl 5 mg tablet,james yed release 03-29 00:00: 00 06-04 00:00 :00 No [id number] CONSTIPATIO N Per instruc tions DAILY Per instructio ns DAILY (route: oral) Med Classific ation: Gastroint estinal Therapy Agents FeroSul 325 mg (65 mg iron) tablet 18 00:00: 00 Yes [id number] SUPPLEMENT Per instruc tions ONCE DAILY Per instructio ns ONCE DAILY (route: oral) Med Classific ation: Electroly te Balance-N utritiona l Products Lantus U-100 Insulin 100 unit/mL subcutane s solution 629 00:00: 00 04-06 00:00 :00 No [id number] Per instruc tions AT BEDTIME Per instructio ns AT BEDTIME (route: [facility]) Med Classific ation: Endocrine Levemir U-100 Insulin 100 unit/[facility] 02-07 00:00: 00 04-06 00:00 :00 No [id number] Per instruc tions EVERY NIGHT AT BEDTIME Per instructio ns EVERY NIGHT AT BEDTIME (route: [facility]) Med Classific ation: Endocrine Novolog Flexpen U-100 Insulin aspart 100 unit/mL (3 mL) subcutaneou s 03-28 00:00: 00 06-04 23:59 :00 No [id number] DM Per instruc tions MAX DAILY Per instructio ns MAX DAILY (route: [facility]) Med Classific ation: Endocrine Novolog U-100 Insulin aspart 100 unit/mL subcutane s solution 03-06 00:00: 00 06-04 23:59 :00 No [id number] DM Per instruc tions DAILY Per instructio ns DAILY (route: [facility]) Med Classific ation: Endocrine Toujamalo SoloStar U-300 Insulin 300 unit/mL [facility]1.5 mL) [facility] 03-07 00:00: 00 04-26 23:59 :00 No [id number] DM Per instruc tions A MAX DAILY DAILY Per instructio ns A MAX DAILY DAILY (route: [facility]) Med Classific ation: Endocrine BD Ultra-Fine Mini Pen Needle 31 gauge x 11/07 8- 00:00: 00 06-04 00:00 :00 No [id number] DM Per instruc tions DIRECTED INSULIN UP TO 8 TIMES DAILY Per instructio ns DIRECTED INSULIN UP TO 8 TIMES DAILY ([facility] Med Classific ation: Medical Supplies and Durable Medical Equipment (DME) insulin syringe U-100 with needle 0.5 mL 31 gauge x 01/07 8-03 00:00: 00 06-04 00:00 :00 No [id number] DM Per instruc tions INSULIN 12 TIMES DAILY Per instructio ns INSULIN 12 TIMES DAILY (route: [facility]) Med Classific ation: Medical Supplies and Durable Medical Equipment (DME) insulin syringe U-100 with needle 0.5 mL 31 gauge x 01/07 624 00:00: 00 Yes [id number] DM Per instruc tions DIRECTED 10 - 12 TIMES PER DAY Per instructio ns DIRECTED 10 - 12 TIMES PER DAY (route: [facility]) Med Classific ation: Medical Supplies and Durable Medical Equipment (DME) lorazepam 0.5 mg tablet 04-03 00:00: 00 Yes [id number] ANXIETY 1 tablet NEEDED 1 tablet NEEDED (route: oral) Med Classific ation: Central Nervous System Agents Multivitami n 50 Plus tablet 04-03 00:00: 00 Yes [id number] SUPPLEMENT 2 tablet DAILY 2 tablet DAILY (route: oral) Med Classific ation: Electroly te Balance-N utritiona l Products OXYGEN 04-03 00:00: 00 Yes [id number] ASTHMA 3 Liter OXYGEN (O2) - INTERMITTE NT 3 Liter OXYGEN (O2) - INTERMITTE NT (route: Oxygen) Med Classific ation: Medical Oxygen triple strength cranberry concentrate 30,000 mg 04-03 00:00: 00 Yes [id number] SUPPLEMENT 2 tablets DAILY 2 tablets DAILY (route: BY MOUTH) Med Classific ation: MISCELLAN EOUS HERBS AND SUPPLEMEN TS Ventolin HFA 90 mcg/actuati on aerosol inhaler 04-03 00:00: 00 Yes [id number] ASTHMA 2 puff NEEDED 2 puff NEEDED (route: inhalation ) Med Classific ation: Respirato ry Therapy Agents Vitamin C 250 mg chewable tablet 04-03 00:00: 00 Yes [id number] SUPPLEMENT 2 tablet DAILY 2 tablet DAILY (route: oral) Med Classific ation: Electroly te Balance-N utritiona l Products Tresiba FlexTouch U-200 insulin 200 unit/mL (3 mL) [facility] 8-31 00:00: 00 06-04 23:59 :00 No [id number] CONTROL BS Per instruc tions 2 TIMES DAILY Per instructio ns 2 TIMES DAILY (route: [facility]) Med Classific ation: Endocrine furosemide 20 mg tablet 2020-08 0-12 00:00: 00 Yes [id number] DIURETIC 1 tablet DAILY 1 tablet DAILY (route: oral) Med Classific ation: Cardiovas cular Therapy Agents Humalog KwikPen U-200 Insulin 200 unit/mL (3 mL) [facility] 2020-08 0-12 00:00: 00 Yes [id number] CONTROL BS Per instruc tions DIRECTED Per instructio ns DIRECTED (route: [facility]) Med Classific ation: Endocrine potassium chloride ER 20 mEq tablet,exte nded release(par t/cryst) 2020-08 0 00:00: 00 06-29 23:59 :00 No [id number] SUPPLEMENT 1 tablet DAILY 1 tablet DAILY (route: oral) Med Classific ation: Electroly te Balance-N utritiona l Products Reglan 10 mg tablet 2020-08 00:00: 00 Yes [id number] HEARTBURN 1 tablet 4 TIMES DAILY 1 tablet 4 TIMES DAILY (route: oral) Med Classific ation: Gastroint estinal Therapy Agents spironolact one 25 mg tablet 2020-08 00:00: 00 Yes [id number] HTN 2 tablet DAILY 2 tablet DAILY (route: oral) Med Classific ation: Cardiovas cular Therapy Agents amlodipine 2.5 mg tablet 2020-08 00:00: 00 Yes [id number] CONTROL BP 1 tablet DAILY 1 tablet DAILY (route: oral) Med Classific ation: Cardiovas cular Therapy Agents Co Q-10 300 mg capsule 2020-08 00:00: 00 Yes [id number] SUPPLEMENT 1 capsule DAILY 1 capsule DAILY (route: oral) Med Classific ation: Alternati ve Therapy erythromyci n 250 mg tablet 2020-08 00:00: 00 09-17 23:59 :00 No [id number] DIABETES GASTROPARES IS 0.5 tablet 3 TIMES DAILY 0.5 tablet 3 TIMES DAILY (route: oral) Med Classific ation: Anti-Infe ctive Agents spore focus 500mg 2020-08 00:00: 00 Yes [id number] INCREASE COGNITIVE PROCESS 2 CAPSULE DAILY 2 CAPSULE DAILY (route: BY MOUTH) Med Classific ation: ALZHEIMER ?S/VELVET IA Immunizations Ordered Immunization Name Filled Immunization Name Date Status Comments Refusal Reason DOSE #2, COVID-19 VACCINE 2020-11-23 00:00:00 DOSE #1, COVID-19 VACCINE 2020-10-23 00:00:00 Vital Signs Vital Name Observation Time Observation Value Commen ts Temperature 2021-09-28 09:39:00.000 97.8 [degF] Temperature 2021 15:37:00.000 97.6 [degF] Temperature 2021-09-04 09:11:00.000 97.6 [degF] Temperature 2021-08-23 10:17:00.000 97.3 [degF] Temperature 2021-08-16 08:33:00.000 97.8 [degF] Temperature 2021-08-09 09:49:00.000 97 [degF] Pulse 2021-09-28 09:39:00.000 70 /min Pulse 2021 15:37:00.000 68 /min Pulse 2021-09-04 09:11:00.000 74 /min Pulse 2021-08-23 10:17:00.000 68 /min Pulse 2021-08-16 08:33:00.000 68 /min Pulse 2021-08-09 09:49:00.000 71 /min O2 Saturation (%) 2021-09-28 09:39:00.000 95 % O2 Saturation (%) 2021 15:37:00.000 95 % O2 Saturation (%) 2021-09-04 09:11:00.000 96 % O2 Saturation (%) 2021-08-23 10:17:00.000 98 % O2 Saturation (%) 2021-08-16 08:33:00.000 98 % O2 Saturation (%) 2021-08-09 09:49:00.000 98 % Respirations 2021-09-28 09:39:00.000 18 /min Respirations 2021 15:37:00.000 18 /min Respirations 2021-09-04 09:11:00.000 18 /min Respirations 2021-08-23 10:17:00.000 18 /min Respirations 2021-08-16 08:33:00.000 18 /min Respirations 2021-08-09 09:49:00.000 18 /min Weight (lbs) 2021-09-28 09:39:00.000 330 [lb_av] Weight (lbs) 2021 15:37:00.000 330 [lb_av] Weight (lbs) 2021-09-04 09:11:00.000 328 [lb_av] Weight (lbs) 2021-08-23 10:17:00.000 332.2 [lb_av] Weight (lbs) 2021-08-16 08:37:00.000 329 [lb_av] Weight (lbs) 2021-08-09 09:54:00.000 330.2 [lb_av] Systolic Blood Pressure 2021-09-28 09:39:00.000 130 mm [Hg] Systolic Blood Pressure 2021 15:37:00.000 120 mm [Hg] Systolic Blood Pressure 2021-09-04 09:11:00.000 120 mm [Hg] Systolic Blood Pressure 2021-08-23 10:17:00.000 118 mm [Hg] Systolic Blood Pressure 2021-08-16 08:33:00.000 138 mm [Hg] Systolic Blood Pressure 2021-08-09 09:49:00.000 132 mm [Hg] Diastolic Blood Pressure 2021-09-28 09:39:00.000 80 mm [Hg] Diastolic Blood Pressure 2021 15:37:00.000 80 mm [Hg] Diastolic Blood Pressure 2021-09-04 09:11:00.000 72 mm [Hg] Diastolic Blood Pressure 2021-08-23 10:17:00.000 80 mm [Hg] Diastolic Blood Pressure 2021-08-16 08:33:00.000 75 mm [Hg] Diastolic Blood Pressure 2021-08-09 09:49:00.000 70 mm [Hg] Plan of Treatment Planned Activity Planned Date Details Comments Future Scheduled Test SKILLED NU RSE TO ASSESS, EVALUATE, AND DEVELOP AN INDIVIDUALIZED PLAN OF CARE. AGENCY MAY ACCEPT ORDERS FROM CONSULTING PHYSICIANS DR JOHANNY BRANHAM TO OBSERVE/ASSESS RISK FOR FALLS AND INSTRUCT IN FALL PREVENTION, HOME SAFETY, MEDICATION MANAGEMENT, INFECTION PREVENTION, AND NUTRITION MANAGEMENT. SN MAY PERFORM O2 SATURATION LEVEL ON ADMISSION AND PRN FOR RESP CHANGES TO ASSESS PATIENT, WITH NOTIFICATION TO THE PHYSICIAN IF SATURATION IS 90% IN THE ABSENCE OF MORE SPECIFIC PARAMETERS FROM THE PHYSICIAN. AGENCY MAY PERFORM A RESUMPTION OF CARE VISIT FOLLOWING ANY HOSPITAL ADMISSION. SKILLED NURSE TO ASSESS/EVALUATE CO-MORBID CONDITIONS AND ANY NEW CONDITIONS THAT PRESENT THEMSELVES DURING THIS EPISODE TO IDENTIFY CHANGES AND INTERVENE TO MINIMIZE COMPLICATIONS. [code = SKILLED NURSE TO ASSESS, EVALUATE, AND DEVELOP AN INDIVIDUALIZED PLAN OF CARE. AGENCY MAY ACCEPT ORDERS FROM CONSULTING PHYSICIANS DR JOHANNY BRANHAM TO OBSERVE/ASSESS RISK FOR FALLS AND INSTRUCT IN FALL PREVENTION, HOME SAFETY, MEDICATION MANAGEMENT, INFECTION PREVENTION, AND NUTRITION MANAGEMENT. SN MAY PERFORM O2 SATURATION LEVEL ON ADMISSION AND PRN FOR RESP CHANGES TO ASSESS PATIENT, WITH NOTIFICATION TO THE PHYSICIAN IF SATURATION IS 90% IN THE ABSENCE OF MORE SPECIFIC PARAMETERS FROM THE PHYSICIAN. AGENCY MAY PERFORM A RESUMPTION OF CARE VISIT FOLLOWING ANY HOSPITAL ADMISSION. SKILLED NURSE TO ASSESS/EVALUATE CO-MORBID CONDITIONS AND ANY NEW CONDITIONS THAT PRESENT THEMSELVES DURING THIS EPISODE TO IDENTIFY CHANGES AND INTERVENE TO MINIMIZE COMPLICATIONS.] Future Scheduled Test MEDICATION MANAGEMENT; SKILLED NURSE TO REVIEW MEDICATIONS FOR INTERACTIONS, EFFECTIVENESS OF DRUG THERAPY, AND SIGNS/SYMPTOMS OF ADVERSE REACTIONS. MAY INSTRUCT AND REINFORCE MEDICATION TEACHING RELATED TO THE USE OF MEDICATIONS, DOSAGE, FREQUENCY, PURPOSE, SIDE EFFECTS, AND TO REPORT COMPLICATIONS. [code = MEDICATION MANAGEMENT; SKILLED NURSE TO REVIEW MEDICATIONS FOR INTERACTIONS, EFFECTIVENESS OF DRUG THERAPY, AND SIGNS/SYMPTOMS OF ADVERSE REACTIONS. MAY INSTRUCT AND REINFORCE MEDICATION TEACHING RELATED TO THE USE OF MEDICATIONS, DOSAGE, FREQUENCY, PURPOSE, SIDE EFFECTS, AND TO REPORT COMPLICATIONS. ] Future Scheduled Test RISK FOR H OSPITALIZATION; SKILLED NURSE TO INSTRUCT PATIENT/CAREGIVER ON RISK FOR HOSPITALIZATION, TEACH SIGNS AND SYMPTOMS THAT PUT PATIENT AT RISK, WHEN TO NOTIFY NURSE OF COMPLICATIONS/DECLINE, AND WHEN TO CALL 911. SKILLED NURSE TO INSTRUCT PATIENT/CAREGIVER ON: SIGNS AND SYMPTOMS TO BE ON ALERT FOR EARLY INTERVENTION, PRIOR TO NEEDING EMERGENCY SERVICES CALL [facility] NURSE TO KEEP [employer] SALES CONSULTANT SYMPTOM REPORT FOR VISIBLE REFERENCE NOTIFY SKILLED NURSE/PHYSICIAN FOR DECLINE IN STATS WHEN AND HOW TO CALL HOME HEALTH AGENCY FACILITATE PHYSICIAN FOLLOW UP APPOINTMENT IDENTIFY SOCIOECONOMIC CONCERNS AND MAKE APPROPRIATE REFERRAL NEEDED [code = RISK FOR HOSPITALIZATION; SKILLED NURSE TO INSTRUCT PATIENT/CAREGIVER ON RISK FOR HOSPITALIZATION, TEACH SIGNS AND SYMPTOMS THAT PUT PATIENT AT RISK, WHEN TO NOTIFY NURSE OF COMPLICATIONS/DECLINE, AND WHEN TO CALL 911. SKILLED NURSE TO INSTRUCT PATIENT/CAREGIVER ON: SIGNS AND SYMPTOMS TO BE ON ALERT FOR EARLY INTERVENTION, PRIOR TO NEEDING EMERGENCY SERVICES CALL [facility] NURSE TO KEEP PROFESSIONAL [employer]EF[employer] SALES CONSULTANT SYMPTOM REPORT FOR VISIBLE REFERENCE NOTIFY SKILLED NURSE/PHYSICIAN FOR DECLINE IN STATS WHEN AND HOW TO CALL HOME HEALTH AGENCY FACILITATE PHYSICIAN FOLLOW UP APPOINTMENT IDENTIFY SOCIOECONOMIC CONCERNS AND MAKE APPROPRIATE REFERRAL NEEDED] Future Scheduled Test CARDIOVASC ULAR SYSTEM; SKILLED NURSE TO ASSESS AND TEACH RELATED TO ALTERED CARDIOVASCULAR STATUS TO MINIMIZE COMPLICATIONS AND REDUCE HOSPITALIZATION. [code = CARDIOVASCULAR SYSTEM; SKILLED NURSE TO ASSESS AND TEACH RELATED TO ALTERED CARDIOVASCULAR STATUS TO MINIMIZE COMPLICATIONS AND REDUCE HOSPITALIZATION.] Future Scheduled Test HYPERTENSI ON MANAGEMENT; SKILLED NURSE TO ASSESS/TEACH WARNING SIGNS AND SYMPTOMS TO AVOID HOSPITALIZATION. [code = HYPERTENSION MANAGEMENT; SKILLED NURSE TO ASSESS/TEACH WARNING SIGNS AND SYMPTOMS TO AVOID HOSPITALIZATION.] Future Scheduled Test DIABETES M ANAGEMENT; SKILLED NURSE FOR INSTRUCTIONS OF DIABETIC CARE TO INCLUDE: DIET LOW CARB NCS SKIN CARE, SIGNS AND SYMPTOMS OF HYPO/HYPERGLYCEMIA, PROPER ADMINISTRATION OF DIABETIC MEDICATION. SKILLED NURSE TO INSTRUCT ON DIABETIC FOOT CARE AND MONITOR FOR SKIN LESIONS ON LOWER EXTREMITIES. BLOOD GLUCOSE TESTING 4-6XDAY FREQ. SKILLED NURSE TO ASSESS PATIENT/CAREGIVER ABILITY TO PERFORM AND RECORD BLOOD GLUCOSE TESTING ORDERED AND TO REPORT ABNORMAL FINDINGS TO PHYSICIAN. SKILLED NURSE MAY PERFORM BLOOD GLUCOSE TEST NEEDED. SKILLED NURSE TO REPORT TO PHYSICIAN BLOOD GLUCOSE READINGS GREATER THAN 400 OR LESS THAN 70 SKILLED NURSE TO INSTRUCT PATIENT ON IMPORTANCE OF HGBA1C MONITORING, KIDNEY FUNCTION TEST, EYE AND FOOT EXAMS. [code = DIABETES MANAGEMENT; SKILLED NURSE FOR INSTRUCTIONS OF DIABETIC CARE TO INCLUDE: DIET LOW CARB NCS SKIN CARE, SIGNS AND SYMPTOMS OF HYPO/HYPERGLYCEMIA, PROPER ADMINISTRATION OF DIABETIC MEDICATION. SKILLED NURSE TO INSTRUCT ON DIABETIC FOOT CARE AND MONITOR FOR SKIN LESIONS ON LOWER EXTREMITIES. BLOOD GLUCOSE TESTING 4-6XDAY FREQ. SKILLED NURSE TO ASSESS PATIENT/CAREGIVER ABILITY TO PERFORM AND RECORD BLOOD GLUCOSE TESTING ORDERED AND TO REPORT ABNORMAL FINDINGS TO PHYSICIAN. SKILLED NURSE MAY PERFORM BLOOD GLUCOSE TEST NEEDED. SKILLED NURSE TO REPORT TO PHYSICIAN BLOOD GLUCOSE READINGS GREATER THAN 400 OR LESS THAN 70 SKILLED NURSE TO INSTRUCT PATIENT ON IMPORTANCE OF HGBA1C MONITORING, KIDNEY FUNCTION TEST, EYE AND FOOT EXAMS.] Future Scheduled Test FALL REDUC TION MANAGEMENT; NURSING TO PROVIDE SKILLED ASSESSMENT, EDUCATION, AND INTERVENTION TO IDENTIFY FALL RISK FACTORS SUCH MEDICATIONS THAT MAY CAUSE DIZZINESS, CHRONIC DISEASES, PSYCHOLOGICAL FACTORS, AND EMPOWER/EDUCATE PATIENT/CAREGIVER TO MINIMIZE FALL RISK. [code = FALL REDUCTION MANAGEMENT; NURSING TO PROVIDE SKILLED ASSESSMENT, EDUCATION, AND INTERVENTION TO IDENTIFY FALL RISK FACTORS SUCH MEDICATIONS THAT MAY CAUSE DIZZINESS, CHRONIC DISEASES, PSYCHOLOGICAL FACTORS, AND EMPOWER/EDUCATE PATIENT/CAREGIVER TO MINIMIZE FALL RISK. ] Future Scheduled Test PAIN MANAG EMENT; SKILLED NURSE TO OBSERVE, ASSESS, AND PROVIDE EDUCATION ON PAIN MANAGEMENT TECHNIQUES. [code = PAIN MANAGEMENT; SKILLED NURSE TO OBSERVE, ASSESS, AND PROVIDE EDUCATION ON PAIN MANAGEMENT TECHNIQUES. ] Future Scheduled Test 60 DAY PHY SICIAN SUMMARY; PATIENT IS BEING RE-CERTIFIED DUE TO ONGOING CHALLENGES IN BLOOD GLUCOSE CONTROL, AND EXACERBATIONS OF CO-MORBID CONDITIONS IN WHICH NEW ANTI-HYPERTENSIVE MEDICATION WAS STARTED THAT REQUIRES ASSESSMENT, TEACHING AND MONITORING [code = 60 DAY PHYSICIAN SUMMARY; PATIENT IS BEING RE-CERTIFIED DUE TO ONGOING CHALLENGES IN BLOOD GLUCOSE CONTROL, AND EXACERBATIONS OF CO-MORBID CONDITIONS IN WHICH NEW ANTI-HYPERTENSIVE MEDICATION WAS STARTED THAT REQUIRES ASSESSMENT, TEACHING AND MONITORING ] Goal 2021-07-30 Patient Goal - BETTER SO I CAN EXERCISE AND LOSE WEIGHT Goal 2021-06-04 Patient Goal - BETTER SO I CAN EXERCISE AND LOSE WEIGHT Goal 2021-09-28 Patient Goal - BETTER SO I CAN EXERCISE AND LOSE WEIGHT I WANT BETTER CONTROL OVER BS Goal Provider Goal - A PLAN OF CARE WILL BE ESTABLISHED THAT MEETS THE PATIENTS NEEDS. PATIENT WILL DEMONSTRATE OXYGEN SATURATION WITHIN NORMAL LIMITS OR PATIENTS OPTIMAL LEVEL ESTABLISHED BY THE PHYSICIAN THROUGHOUT CARE. CHANGES TO CO-MORBID CONDITIONS AND ANY NEW CONDITIONS WILL BE IDENTIFIED AND REPORTED TO THE PHYSICIAN. Goal Provider Goal - PATIENT/CAREGIVER TO VERBALIZE, AND CONSISTENTLY DEMONSTRATE EFFECTIVE, SAFE MANAGEMENT OF MEDICATION INCLUDING KNOWLEDGE OF EFFECTIVENESS, POTENTIAL SIDE EFFECTS AND DRUG REACTIONS AND WHEN TO CONTACT THE APPROPRIATE CARE PROVIDER. PATIENT/CAREGIVER WILL BE ABLE TO VERBALIZE UNDERSTANDING OF MEDICATION REGIMEN AND ACCURATELY TAKE MEDICATIONS PRESCRIBED WITHOUT ADVERSE EFFECTS BY DISCHARGE Goal Provider Goal - PATIENT/CAREGIVER WILL VERBALIZE UNDERSTANDING OF SIGNS AND SYMPTOMS THAT PUT THE PATIENT AT RISK FOR HOSPITALIZATION, WHEN TO NOTIFY SN OF COMPLICATIONS/DECLINE AND WHEN TO CALL 911. Goal Provider Goal - PATIENT / CAREGIVER WILL VERBALIZE/DEMONSTRATE UNDERSTANDING OF MEASURES TO MANAGE ALTERED CARDIOVASCULAR STATUS BY 2/8. Goal Provider Goal - PATIENT / CAREGIVER WILL VERBALIZE/DEMONSTRATE AN ABILITY TO ADHERE TO SELF-MANAGEMENT OF HTN TO MINIMIZE COMPLICATIONS AND AVOID HOSPITALIZATION BY END OF EPISODE. Goal Provider Goal - PATIENT / CAREGIVER WILL VERBALIZE / DEMONSTRATE AN ABILITY TO ADHERE TO SELF-MANAGEMENT OF DIABETES MANAGEMENT BY 2/8 Goal Provider Goal - PATIENT/CAREGIVER ABLE TO IDENTIFY FALL RISK FACTORS AND IMPLEMENT STRATEGIES TO MINIMIZE FALL RISK. PATIENT/CAREGIVER WILL VERBALIZE/DEMONSTRATE AN ABILITY TO ADHERE TO FALL REDUCTION SELF MANAGEMENT AND LIFE-STYLE CHANGES AT DISCHARGE. PERSONAL GOAL(S) STATED BY PATIENT/CAREGIVER WILL BE MET BY DISCHARGE Goal Provider Goal - PATIENT / CAREGIVER WILL VERBALIZE / DEMONSTRATE UNDERSTANDING OF PAIN CONTROL MEASURES BY DISCHARGE Goal Provider Goal - Reason for Visit INDEPENDENT IN THE COMMUNITY Encounters Start Date/Time End Date/Time Encounter Type Admission Type Attending [facility] Care Department Encounter ID Discharge Date Discharge Status Discharge Condition Discharge Reason Percent Goals Met 2021-04-06 00:00:00 2021-09-28 00:00:00 Outpatient RECERTIFIC ATION KATLYN REYES [facility] [id number] 2021-09-28 00:00:00 DISCHARGE TO HOME OR SELF CARE INDEPENDEN T IN THE COMMUNITY HH OR [facility]- GOALS MET 100.00
--- OUTSIDE RECORDS SUMMARY | 2024-09-01 11:57 | XMS_ITS | Clinical Summary ---
Author Organization Unknown Care Team Providers Care Dog Behaviorist Name Role Phone JOHANNY CARDENAS, ADIS Unavailable Unavailable ERIC RN, KATLYN Unavailable Unavailable JUAN CARLOS NIGHT MONITOR, SRINIVASAN Unavailable Unavailable SANJANA PT, LYUDMILA Unavailable Unavailable SPAFFJERZY OT, LIO Unavailable Unavailable CLAUDIA NIGHT MONITOR, CHI Unavailable Unavailable CONDINO RESOURCE ENGINEER/BARRON, TEENA Unavailable Unav ailable Payers Payer Name Policy Type Policy Number Effective Date Expira tion Date MEDICARE.[facility].PDGM [id number] Problems Condition Name Condition Details Condition Category [...] % topical gel 03-03 00:00: 00 Yes [id number] PAIN Per instruc tions FOUR TIMES DAILY Per instructio ns FOUR TIMES DAILY (route: topical) Med Classific ation: Dermatolo gical Arnuity Ellipta 100 mcg/actuati on powder for inhalation 03-05 00:00: 00 Yes [id number] ASTHMA Per instruc tions EVERY DAY Per instructio ns EVERY DAY (route: inhalation ) Med Classific ation: Respirato ry Therapy Agents Baqsimi 3 mg/actuatio n nasal spray 03-20 00:00: 00 Yes [id number] LOW BLOOD SUGAR Per instruc tions ONCE Per instructio ns ONCE (route: nasal) Med Classific ation: Endocrine prednisolon e acetate 1 % eye drops,suspe nsion 04-03 00:00: 00 Yes [id number] EYE INFLAMMATIO N Per instruc tions 2 TIMES DAILY Per instructio ns 2 TIMES DAILY (route: ophthalmic (eye)) Med Classific ation: Ophthalmi c Agents potassium chloride ER 20 mEq tablet,exte nded release(par t/cryst) 03-05 00:00: 00 06-04 23:59 :00 No [id number] CARDIAC Per instruc tions EVERY DAY WITH FOOD DIRECTED Per instructio ns EVERY DAY WITH FOOD DIRECTED (route: oral) Med Classific ation: Electroly te Balance-N utritiona l Products pregabalin 150 mg capsule 01-30 00:00: 00 Yes [id number] NEUROPATHY Per instruc tions 3 TIMES DAILY Per instructio ns 3 TIMES DAILY (route: oral) Med Classific ation: Central Nervous System Agents aripiprazol e 30 mg tablet 12-28 00:00: 00 04-06 00:00 :00 No [id number] Per instruc tions DAILY Per instructio ns DAILY (route: oral) Med Classific ation: Central Nervous System Agents lisinopril 40 mg tablet 01-27 00:00: 00 Yes [id number] HTN Per instruc tions DAILY Per instructio ns DAILY (route: oral) Med Classific ation: Cardiovas cular Therapy Agents amlodipine 10 mg tablet 12-28 00:00: 00 04-06 00:00 :00 No [id number] Per instruc tions EVERY DAY Per instructio ns EVERY DAY (route: oral) Med Classific ation: Cardiovas cular Therapy Agents methocarbam ol 500 mg tablet 03-06 00:00: 00 04-06 00:00 :00 No [id number] FOR MUSCLE SPASM Per instruc tions EVERY 6 HOURS NEEDED Per instructio ns EVERY 6 HOURS NEEDED (route: oral) Med Classific ation: Locomotor System chlorthalid one 25 mg tablet 01-27 00:00: 00 06-04 00:00 :00 No [id number] HTN Per instruc tions EVERY DAY Per instructio ns EVERY DAY (route: oral) Med Classific ation: Cardiovas cular Therapy Agents atorvastati n 40 mg tablet 12-28 00:00: 00 Yes [id number] HLD Per instruc tions EVERY DAY Per instructio ns EVERY DAY (route: oral) Med Classific ation: Cardiovas cular Therapy Agents furosemide 20 mg tablet 12-28 00:00: 00 06-04 23:59 :00 No [id number] CHF Per instruc tions DAILY Per instructio ns DAILY (route: oral) Med Classific ation: Cardiovas cular Therapy Agents furosemide 80 mg tablet 6 00:00: 00 04-06 00:00 :00 No [id number] Per instruc tions TWICE DAILY Per instructio ns TWICE DAILY (route: oral) Med Classific ation: Cardiovas cular Therapy Agents peg-electro lyte solution 420 gram oral solution 03-29 00:00: 00 04-06 00:00 :00 No [id number] Per instruc tions Per instructio ns (route: oral) Med Classific ation: Gastroint estinal Therapy Agents pantoprazol e 40 mg tablet,james yed release 01-19 00:00: 00 Yes [id number] GERD Per instruc tions EVERY DAY Per instructio ns EVERY DAY (route: oral) Med Classific ation: Gastroint estinal Therapy Agents oxycodone 5 mg tablet 02-28 00:00: 00 04-06 00:00 :00 No [id number] Per instruc tions TWICE DAILY NEEDED Per instructio ns TWICE DAILY NEEDED (route: oral) Med Classific ation: Analgesic , Anti-infl ammatory or Antipyret ic bisacodyl 5 mg tablet,james yed release 03-29 00:00: 00 06-04 00:00 :00 No [id number] CONSTIPATIO N Per instruc tions DAILY Per instructio ns DAILY (route: oral) Med Classific ation: Gastroint estinal Therapy Agents FeroSul 325 mg (65 mg iron) tablet 18 00:00: 00 Yes [id number] SUPPLEMENT Per instruc tions ONCE DAILY Per instructio ns ONCE DAILY (route: oral) Med Classific ation: Electroly te Balance-N utritiona l Products Lantus U-100 Insulin 100 unit/mL subcutane s solution 629 00:00: 00 04-06 00:00 :00 No [id number] Per instruc tions AT BEDTIME Per instructio ns AT BEDTIME (route: [facility]) Med Classific ation: Endocrine Levemir U-100 [facility] 100 unit[facility] 02-07 00:00: 00 04-06 00:00 :00 No [id number] Per instruc tions EVERY NIGHT AT BEDTIME Per instructio ns EVERY NIGHT AT BEDTIME (route: [facility]) Med Classific ation: Endocrine Novolog Flexpen U-100 Insulin aspart 100 unit/mL (3 mL) subcutaneou s 03-28 00:00: 00 06-04 23:59 :00 No [id number] DM Per instruc tions MAX DAILY Per instructio ns MAX DAILY (route: [facility]) Med Classific ation: Endocrine Novolog U-100 Insulin aspart 100 unit/mL subcutane s solution 03-06 00:00: 00 06-04 23:59 :00 No [id number] DM Per instruc tions DAILY Per instructio ns DAILY (route: [facility]) Med Classific ation: Endocrine Toujamalo SoloStar U-300 Insulin 300 unit/mL (1.5 mL) [facility] pen 03-07 00:00: 00 04-26 23:59 :00 No [id number] DM Per instruc tions A MAX DAILY DAILY Per instructio ns A MAX DAILY DAILY (route: [facility]) Med Classific ation: Endocrine BD Ultra-Fine Mini Pen Needle 31 gauge x 11/07 8- 00:00: 00 06-04 00:00 :00 No [id number] DM Per instruc tions DIRECTED INSULIN UP TO 8 TIMES DAILY Per instructio ns DIRECTED INSULIN UP TO 8 TIMES DAILY [facility] Med Classific ation: Medical Supplies and Durable Medical Equipment (DME) insulin syringe U-100 with needle 0.5 mL 31 gauge x 01/07 8-03 00:00: 00 06-04 00:00 :00 No [id number] DM Per instruc tions INSULIN 12 TIMES DAILY Per instructio ns INSULIN 12 TIMES DAILY (route: [facility]) Med Classific ation: Medical Supplies and Durable Medical Equipment (DME) insulin syringe U-100 with needle 0.5 mL 31 gauge x 01/07 624 00:00: 00 Yes [id number] DM Per instruc tions DIRECTED 10 - 12 TIMES PER DAY Per instructio ns DIRECTED 10 - 12 TIMES PER DAY (route: [facility]) Med Classific ation: Medical Supplies and Durable Medical Equipment (DME) lorazepam 0.5 mg tablet 04-03 00:00: 00 Yes [id number] ANXIETY 1 tablet NEEDED 1 tablet NEEDED (route: oral) Med Classific ation: Central Nervous System Agents Multivitami n 50 Plus tablet 04-03 00:00: 00 Yes [id number] SUPPLEMENT 2 tablet DAILY 2 tablet DAILY (route: oral) Med Classific ation: Electroly te Balance-N utritiona l Products OXYGEN 04-03 00:00: 00 Yes [id number] ASTHMA 3 Liter OXYGEN (O2) - INTERMITTE NT 3 Liter OXYGEN (O2) - INTERMITTE NT (route: Oxygen) Med Classific ation: Medical Oxygen triple strength cranberry concentrate 30,000 mg 04-03 00:00: 00 Yes [id number] SUPPLEMENT 2 tablets DAILY 2 tablets DAILY (route: BY MOUTH) Med Classific ation: MISCELLAN EOUS HERBS AND SUPPLEMEN TS Ventolin HFA 90 mcg/actuati on aerosol inhaler 04-03 00:00: 00 Yes [id number] ASTHMA 2 puff NEEDED 2 puff NEEDED (route: inhalation ) Med Classific ation: Respirato ry Therapy Agents Vitamin C 250 mg chewable tablet 04-03 00:00: 00 Yes [id number] SUPPLEMENT 2 tablet DAILY 2 tablet DAILY (route: oral) Med Classific ation: Electroly te Balance-N utritiona l Products Tresiba FlexTouch U-200 insulin 200 unit/mL (3 mL) [facility] pen 8-31 00:00: 00 06-04 23:59 :00 No [id number] CONTROL BS Per instruc tions 2 TIMES DAILY Per instructio ns 2 TIMES DAILY (route: [facility]) Med Classific ation: Endocrine furosemide 20 mg tablet 2020-08 0-12 00:00: 00 Yes [id number] DIURETIC 1 tablet DAILY 1 tablet DAILY (route: oral) Med Classific ation: Cardiovas cular Therapy Agents Humalog KwikPen U-200 Insulin 200 unit/mL (3 mL) [facility] 2020-08 0-12 00:00: 00 Yes [id number] CONTROL BS Per instruc tions DIRECTED Per instructio ns DIRECTED (route: [facility]) Med Classific ation: Endocrine potassium chloride ER 20 mEq tablet,exte nded release(par t/cryst) 2020-08 0 00:00: 00 06-29 23:59 :00 No [id number] SUPPLEMENT 1 tablet DAILY 1 tablet DAILY (route: oral) Med Classific ation: Electroly te Balance-N utritiona l Products Reglan 10 mg tablet 2020-08 00:00: 00 Yes [id number] HEARTBURN 1 tablet 4 TIMES DAILY 1 tablet 4 TIMES DAILY (route: oral) Med Classific ation: Gastroint estinal Therapy Agents spironolact one 25 mg tablet 2020-08 00:00: 00 Yes [id number] HTN 2 tablet DAILY 2 tablet DAILY (route: oral) Med Classific ation: Cardiovas cular Therapy Agents amlodipine 2.5 mg tablet 2020-08 00:00: 00 Yes [id number] CONTROL BP 1 tablet DAILY 1 tablet DAILY (route: oral) Med Classific ation: Cardiovas cular Therapy Agents Co Q-10 300 mg capsule 2020-08 00:00: 00 Yes [id number] SUPPLEMENT 1 capsule DAILY 1 capsule DAILY (route: oral) Med Classific ation: Alternati ve Therapy erythromyci n 250 mg tablet 2020-08 00:00: 00 09-17 23:59 :00 No [id number] DIABETES GASTROPARES IS 0.5 tablet 3 TIMES DAILY 0.5 tablet 3 TIMES DAILY (route: oral) Med Classific ation: Anti-Infe ctive Agents spore focus 500mg 2020-08 00:00: 00 Yes [id number] INCREASE COGNITIVE PROCESS 2 CAPSULE DAILY 2 [...] EMERGENCY SERVICES CALL [facility] NURSE TO KEEP OCCUPATIONAL THERAPY CO DIRECTOR SYMPTOM REPORT FOR VISIBLE REFERENCE NOTIFY SKILLED [...] EMERGENCY SERVICES CALL [facility] NURSE TO KEEP OCCUPATIONAL THERAPY CO DIRECTOR SYMPTOM REPORT FOR VISIBLE REFERENCE NOTIFY SKILLED [...] REQUIRES ASSESSMENT, TEACHING AND MONITORING ] Goal 2021-09-28 Patient Goal - BETTER SO I CAN EXERCISE AND LOSE WEIGHT I WANT BETTER CONTROL OVER BS Goal 2021-06-04 Patient Goal - BETTER SO I CAN EXERCISE AND LOSE WEIGHT Goal 2021-07-30 Patient Goal - BETTER SO I CAN EXERCISE AND LOSE WEIGHT Goal Provider Goal - A PLAN OF [...] End Date/Time Encounter Type Admission Type Attending [facility] Care Department Encounter ID Discharge Date Discharge Status Discharge Condition Discharge Reason Percent Goals Met 2021-04-06 00:00:00 2021-09-28 00:00:00 Outpatient RECERTIFIC ATION KATLYN REYES [facility] [id number] 2021-09-28 00:00:00 DISCHARGE TO HOME OR SELF CARE INDEPENDEN T IN THE [facility] OR [facility]- GOALS MET 100.00
--- NOTE | 2024-09-01 11:58 | MHC.OFFVIS ---
Vital Signs 09/01/24 11:59 Height 6 ft Weight 243 lb BMI 33.0 Intake Visit Reasons: Inj-Right ankle inj-last injection-05/27/24 Intake Note: Shubham 48 yr old male presents today for his right ankle injection. Last injection was on 05/27/24 which he states is helping hjim and would like to repeat injection today. Medication list has been updated. Allergies codeine Allergy (Unknown, Verified 09/01/24 12:01) itching ibuprofen [IBUPROFEN] Allergy (Unknown, Verified 09/01/24 12:01) HIVES ketorolac Allergy (Unknown, Verified 09/01/24 12:01) swelling sumatriptan [From IMITREX] Allergy (Unknown, Verified 09/01/24 12:01) TACHYCARDIA bupropion [From Wellbutrin] Adverse Reaction (Severe, Verified 09/01/24 12:01) suicide thoughts prochlorperazine [From Compazine] Adverse Reaction (Unknown, Verified 09/01/24 12:01) Unknown Medication List - Last Reconciled 09/01/24 by Frederick Urbina PA-C albuterol sulfate 90 mcg/actuation 2 puffs inhalation Q4-6H PRN [Ankle support brace As directed] celecoxib 200 mg PO BID empagliflozin (Jardiance) 10 mg PO DAILY ferrous sulfate 325 mg PO DAILY flu vac qs 2019(4 yr up)CD(PF) mL IM fluticasone furoate 100 mcg/actuation (Arnuity Ellipta) 1 inh inhalation DAILY PRN fluticasone propionate 50 mcg/actuation (Flonase Allergy Relief) 1 spray intranasal Q12H furosemide 20 mg PO DAILY PRN insulin lispro 1 sliding scale dose subcut USEASDIRECTD insulin lispro (Humalog KwikPen U-200 Insulin) subcut insulin syringe-needle U-100 As directed ipratropium-albuterol 0.5 mg-3 mg(2.5 mg base)/3 mL 3 mL inhalation QID 30 days lansoprazole 30 mg PO DAILY metoprolol succinate ER 25 mg PO DAILY pregabalin 150 mg PO TID pseudoephedrine HCl ER (Sudafed 12 Hour) 120 mg PO Q12H rosuvastatin 40 mg PO DAILY sacubitril-valsartan 24-26 mg (Entresto) 1 tab PO BID HPI HPI Inj-Right ankle inj-last injection-05/27/24: Details: 48-year-old gentleman returns to the office today for right ankle pain. Injection was successful however the last several weeks he has developed worsening pain. [facility] Medical History (Updated 08/26/24 @ 11:13 by Amish Smith MD) Allergic rhinitis snf (current) use of non-steroidal anti-inflammatories (nsaid) Obesity (BMI 35.0-39.9 without comorbidity) Bronchitis COPD (chronic obstructive pulmonary disease) Restrictive lung disease SABRINA (obstructive sleep apnea) Morbid obesity Social History Household Members: Significant Other Housing: House Alcohol intake: never Patient Tobacco Use Status: Never used Tobacco Current occupational status: disabled Current occupation: Lt handed Review of Systems Const All systems reviewed & are unremarkable except as noted in HPI and below Physical Exam Vital Signs: BMI result Body Mass Index 33.0 Extrem Other: Right ankle normal to inspection.? Significant tenderness over the medial and lateral joint of the ankle No tenderness over the syndesmosis. No significant swelling. No ankle instability. NVI .? Limited range of motion Office Procedures AMB Joint Injection/Aspiration Joint Injection/Aspiration Primary Site: right ankle Prep: site was prepped using aseptic technique, ethochloride spray was applied and injection warnings given Injected: 80 mg of, DepoMedrol, with 1 mL of and 1% plain lidocaine Procedure: The patient tolerated the procedure well and there was some relief with the local anesthesia Coding 91088 - Small Joint Procedure code (CPT) selection complete Assessment & Plan Assessment & Plan (1) Osteoarthritis of ankle, right: Code(s): M19.071 - Primary osteoarthritis, right ankle and foot Category: Medical Qualifiers: Osteoarthritis type: primary Qualified Code(s): M19.071 - Primary osteoarthritis, right ankle and foot Plan We discussed options today, which include steroid injection. The patient did consent to move forward with the right ankle injection, which was tolerated well. I recommended rest, ice, and elevation and OTC anti-inflammatories as needed for discomfort. We also discussed diabetes and the effect the steroid injection can have on their blood glucose levels; therefore, they will continue to monitor these very closely over the next 72 hours. If there are concerns, they should report to the ED immediately. Coding Level of Care Code Est Pt Level 3 (66976) Complex EM visit Add On G2211 Diagnoses Primary osteoarthritis of right ankle M19.071 Osteoarthritis type: primary CPT Codes Coding - 41907 - Small joint: 79922 - Small Joint ([id number])
[2024-09-01 11:59] VITALS: BMI 33.0
== END 2024-09-01 12:16 | disposition home or self-care (01) ==
PROVIDERS: PCP Internal Medicine; Visit Provider Physician Assistant
DX: M19.071 Primary osteoarthritis, right ankle and foot (principal)
CPT/HCPCS: 20605; 99213

== ENCOUNTER → 2024-09-01 11:46 | Outpatient (BNVA) | payer MEDICARE, MEDICAID, SELFPAY | PROVIDERS: PCP Internal Medicine; Visit Provider Physician Assistant | DX: M19.071 Primary osteoarthritis, right ankle and foot (principal) | CPT/HCPCS: 20605; 99212; J1010; J2003 ==

== ENCOUNTER 2024-11-18 10:44 | Outpatient (AMB) | payer MEDICARE, MEDICAID, SELFPAY ==
[2024-11-18 10:57] VITALS: BP 120/82; PULSE 74; O2SAT 100; BMI 32.2
--- NOTE | 2024-11-18 10:57 | MHC.OFFVIS ---
Vital Signs 11/18/24 10:57 Height 6 ft Weight 237 lb 10.533 oz BMI 32.2 BP 120/82 Blood Pressure Location Lt brachial Position Sitting Pulse 74 Pulse Source Pulse Oximeter Pulse Oximetry (%) 100 Oxygen Delivery Method Room Air Intake Visit Reasons: Follow up Intake Note: Patient presents today for follow up on osteoarthritis. He was last seen in the office by Dr. Graff on 07/21/24. 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 Accompanied by: Spouse Allergies codeine Allergy (Unknown, Verified 09/01/24 12:01) itching ibuprofen [IBUPROFEN] Allergy (Unknown, Verified 09/01/24 12:01) HIVES ketorolac Allergy (Unknown, Verified 09/01/24 12:01) swelling sumatriptan [From IMITREX] Allergy (Unknown, Verified 09/01/24 12:01) TACHYCARDIA bupropion [From Wellbutrin] Adverse Reaction (Severe, Verified 09/01/24 12:01) suicide thoughts prochlorperazine [From Compazine] Adverse Reaction (Unknown, Verified 09/01/24 12:01) Unknown HPI Comments Details: Patient is a 48-year-old male with hypertension, type I insulin-dependent diabetes and hyperlipidemia here to follow up osteoarthritis Interval History: Patient last seen 07/21/2024 with me. At that time he was following up for the management of his osteoarthritis. He has polyarticular osteoarthritis but mainly involving his bilateral ankles. He has diabetic neuropathy and Charcot joints with a collapsed ankle on the left. The concern was he takes Celebrex for his pain however given his cardiac issues and potential kidney issues there was hope that there are alternatives. Unfortunately gabapentin does not help, pregabalin does not help, amitriptyline does not help, Tylenol does not help. He is averse to using narcotics because he has tried them in the past and had a 1- 1 1/2 year withdrawal after they were stopped. From his withdrawal he also had alternating diarrhea and constipation with subsequent rectal prolapse and hemorrhoids. Tramadol did not help even after a 2 week trial. He also tried amitriptyline again at my request but this also was not relieving his pain and he states that he would have nights where he would cry because he was in so much pain. Today he continues to take Celebrex 1 tablet twice a day some days he will only do 1 tablet daily Rheumatologic History: Established care 05/2024 for management of osteoarthritis primarily involving his ankles. Unfortunately he had failed duloxetine, gabapentin, pregabalin, tramadol, Tylenol. Currently gets intra-articular steroids from ortho. Refuses to get ankle replacement surgery out of fear of infection complications. He was diagnosed with type 1 diabetes in his early 20s and this has been complicated by diabetic neuropathy and Charcot joint of his feet. Subsequently he was also morbidly obese and had chronic pain involving his bilateral ankles. Patient states that he has lost over 100 lb over the last couple of years which has improved his ankle pain but it still persists. He currently follows with Orthopedics who do ankle injections every 3 months (steroid injections) and who also prescribe him Celebrex to help with the pain. Patient states he takes 200 mg twice a day and this helps his pain 80%. He does try to keep active and and also walks and is actively trying to lose more weight. He was seen by his pizza baker because of concern for his chronic Celebrex use especially in the setting of coronary artery disease and type 1 diabetes. He denies involvement of any other joints. Previously had knee pain but got gel injections and has not had any issues in the knees since then. 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 (nsaid) Obesity (BMI 35.0-39.9 without comorbidity) Bronchitis COPD (chronic obstructive pulmonary disease) Restrictive lung disease SABRINA (obstructive sleep apnea) Morbid obesity Social History Household Members: Significant Other Housing: House Alcohol intake: never Patient Tobacco Use Status: Never used Tobacco Current occupational status: disabled Current occupation: Lt handed Review of Systems Const Details: Review of Systems Constitutional: Denies fever, chills, weight loss ENT: Denies vision changes, eye pain or eye redness, dental caries, dry mouth GI: Denies nausea, vomiting, diarrhea, abdominal pain, change in BM Pulm: Denies SOB, ELDER, hemoptysis, wheezing Cards: Denies chest pain, palpitations Skin: Denies Raynaud's, rash, nail changes, photosensitivity, INSPECTOR HOT FORGINGS: Denies headaches, weakness, paresthesias, recurrent falls MSK: as per HPI All other systems reviewed and are unremarkable except noted above Physical Exam Vital Signs: Last Vital Signs Pulse 74 11/18/24 10:57 BP 120/82 11/18/24 10:57 Pulse Ox 100 11/18/24 10:57 Oxygen Delivery Method Room Air 11/18/24 10:57 BMI result Body Mass Index 32.2 Physical Examination CONSTITUITIONAL Patient alert and cooperative. Well appearing and in no apparent painful distress HEENT Conjunctiva and sclera clear. ?Pupils equal round and reactive to light. ?No lymphadenopathy. ?Normal dentition. No oral or nasal ulcers noted. No evidence of discoid rash to the nancy of ears CHEST/RESPIRATORY SYSTEM Normal respiratory effort and able to speak in complete sentences. ?Clear to auscultation bilaterally. ?No crackles, rales, rhonchi, wheezes heard. CARDIAC SYSTEM Regular rate and rhythm. ?S1 and S2 heard no murmurs. 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 ?No deformities noted. ?No synovitis noted to the MCPs, PIPs or DIPs. ?No tenderness to palpation of these joints. Wrists: ?Full range of motion at the wrists without pain. ?No tenderness to palpation or synovitis noted to the wrists. Elbows: Full range of motion without pain. No tenderness, weakness, swelling, increased warmth or erythema. Shoulders: Full range of motion without pain. No tenderness, weakness, swelling, increased warmth or erythema. Hips: Full range of motion without pain. Hip bursa: No tenderness to palpation Knees: ?Full range of motion. ?No tenderness, swelling, increased warmth or erythema.?No effusion or crepitations Ankles: Right ankle with mild swelling. Decreased range of motion at the talar and subtalar joints. No tenderness to palpation. Left ankle without any swelling. Had good range of motion at the talar and subtalar joints. ? Feet: ?Negative squeeze test. ?No tenderness to palpation or swelling of the MTPs. Tender points:??No tenderness to palpation of the neck, shoulders, chest, elbows, hips, buttocks or knees. SKIN Skin intact without rashes. Results Reviewed Results Reviewed: Cr 1.02 eGFR 90 AST/ALT 37/30 Assessment & Plan Assessment & Plan (1) Osteoarthritis of ankles, bilateral: Code(s): M19.071 - Primary osteoarthritis, right ankle and foot; M19.072 - Primary osteoarthritis, left ankle and foot Qualifiers: Osteoarthritis type: primary Qualified Code(s): M19.071 - Primary osteoarthritis, right ankle and foot; M19.072 - Primary osteoarthritis, left ankle and foot Plan: #Bilateral ankle OA Patient is a 49-year-old male with polyarticular OA specifically bilateral ankle OA. Unfortunately at this time he has not responded to any other conservative managements regarding his OA. Currently on Celebrex 1 tablet twice a day which patient tries at times to decrease to 1 tablet daily. He gets steroid injections from Orthopedics which helps his ankle a bit. He does not want to pursue surgical options due to his high risk of infection due to his diabetes. While it is not FDA approved we can potentially try gel injections in the ankle. 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 (nsaid): Code(s): Z79.1 - terminologist (current) use of non-steroidal anti-inflammatories (NSAID) Category: Medical Plan: #Long-term Use of NSAIDs Discussed with patient the benefits and risk of NSAIDs for managing this patient's osteoarthritis Benefits include: - Reduced the pain, improved mobility, and increased participation in activities Risks include: - GI upset, potential also worsening or formation (especially in patients > 65 years old) - renal impairment especially with concomitant type 1 diabetes Recommended using proton pump inhibitors (PPIs) for the duration of NSAID use to reduce the risk of gastric ulcers Plan I spent 30 minutes reviewing the record and labs, seeing the patient, discussing the treatment plan and documenting in the medical record ? Orders: Orders C Reactive Protein 3 Months M19.071 - Primary osteoarthritis, right ankle and foot, M19.072 - Primary osteoarthritis, left ankle and foot Complete Blood Count Auto Diff 3 Months M19.071 - Primary osteoarthritis, right ankle and foot, M19.072 - Primary osteoarthritis, left ankle and foot Erythrocyte Sedimentation Rate 3 Months M19.071 - Primary osteoarthritis, right ankle and foot, M19.072 - Primary osteoarthritis, left ankle and foot Comprehensive Met. Panel 3 Months M19.071 - Primary osteoarthritis, right ankle and foot, M19.072 - Primary osteoarthritis, left ankle and foot Coding Level of Care Code Est Pt Level 3 (30473) Complex EM visit Add On G2211 Diagnoses Primary osteoarthritis of both ankles M19.071; M19.072 Osteoarthritis type: primary intermediate (current) use of non-steroidal anti-inflammatories (nsaid) Z79.1
--- OUTSIDE RECORDS SUMMARY | 2024-11-18 14:10 | XMS_ITS | Clinical Summary ---
Author Organization [facility] Address [address] [place] [address] Care Team Providers Care Chair Trimmer Name Role Phone Unavailable Primary Care Provider Unavailabl e Social History Tobacco Use Types Packs/Day Years Used Date Smoking Tobacco: Never Assessed Sex and Gender Information Value Date Recorded Sex Assigned at Not on file Gender Identity Not on file Sexual Orientation Not on file Plan of Treatment Health Maintenance Due Date Last Done Comments Hepatitis C Virus Screening 1975 HIV Screening 1988 DTaP/Tdap/Td Vaccines (1 - Tdap) 1994 Hepatitis B Vaccines (1 of 3 - 19+ 3-dose series) 1994 COVID-19 Vaccine (2023-2 5 season) 2024 Pneumococcal Vaccine: Pediat pratik (0-5 Years) and At-Risk Patients (6 to 49 Years) Aged Out No longer eligible b ased on patient's age to complete this topic
--- OUTSIDE RECORDS SUMMARY | 2024-11-18 14:10 | XMS_ITS | Continuity of Care Document ---
Author Organization [facility] Address [address] [place] [id number]- Care Team Providers Care Clinical Haematologist Name Role Phone Raghav CARDENAS, Doretha iPerre Primary Care Physician Encounter [facility] [place] Date(s): 09/20/24 - 10/20/24 [facility] [address] [place] [id number] Encounter Type: Triage Allergies, Adverse Reactions, Alerts Substance Criticality Severity Reaction Reaction Severity Status Imitrex unknown reaction A ctive Wellbutrin suicidal Active NSAIDs can't take-micah mful to my kidneys Active Tylenol affects Blood s ugar reading r/t being a diabetic. Active codeine 1 terrible itching A ctive Toradol can't take-micah mful to my kidneys Active Compazine severe muscle spasm Active Motrin can't take- nuñez rmful to my kidneys Active 1Patient has tolerated Fentanyl and Morphine [...] influenza virus vaccine, inactivated 06/07/08 Give n [id number] 12y+ bivalent booster vax 09/05/22 Recorded SARS-CoV-2 mRNA ([id number]) vax 02/23/22 Recorded SARS-CoV-2 (COVID-19) mRNA BNT-162b2 [...] Given 1Admin Note: SANOFI PASTEUR 2Result Comment: [id number] and expiration [id number], [id number] 3Result Comment: Lot # [id number] January 21, 2007 Medications Admelog 100 units/mL injectable solution See Instructions, USE TO INFUSE INSULIN CONTINUOUSLY; MAX DAILY DOSE OF 120 UNITS, # 110 mL, 3 Refills, Maintenance, 08/26/24 3:45:00 PM EST, [facility], 183, cm, 08/26/24 14:02:00 EST, Height, 110.6, kg, 08/26/24 14:02:00 EST, Dry Weight Start Date: 08/26/24 Status: Ordered Quantity: 110.0 Unit: mL Repeat number: 4 Airborne Gummies 3 tablet, Chew, Daily, 0 Refills, Maintenance, 10/31/23 9:21:00 AM EST, Partial fill upon patient request if the prescription is for a schedule II opioid drug. Start Date: 10/31/23 Status: Ordered Repeat number: 1 albuterol-ipratropium 3 mg-0.5 mg/3 ml inhalation solution 3 mL, Neb, 4 times a day, # 360 mL, 5 Refills, Maintenance, 06/06/20 1:49:00 PM EDT, Inhalation Solution, [id number], 3 mL Neb 4 times a day,x30 days, 183, cm, 06/03/20 22:02:00 EDT,Height, 155.9, kg, 06/03/20 22:02:00 EDT, Dry Weight Start Date: 06/06/20 Stop Date: 12/03/20 Status: Ordered Quantity: 360.0 Unit: mL Repeat number: 6 amLODIPine 2.5 mg oral tablet 90 each, 0 Refill(s), 0 Refills, 09/30/24 1:37:00 PM EST, Partial fill upon patient request if the prescription is for a schedule II opioid drug. Start Date: 09/30/24 Status: Ordered Repeat number: 1 amLODIPine 5 mg oral tablet 90 each, 0 Refill(s), 0 Refills, 09/30/24 1:37:00 PM EST, Partial fill upon patient request if the prescription is for a schedule II opioid drug. Start Date: 09/30/24 Status: Ordered Repeat number: 1 Arnuity Ellipta 100 mcg inhalation powder 30 each, 0 Refill(s), 0 Refills, 09/30/24 1:37:00 PM EST, Partial fill upon patient request if the prescription is for a schedule II opioid drug. Start Date: 09/30/24 Status: Ordered Repeat number: 1 Ascorbic Acid = 1,000 mg, By Mouth, [...] 11 Refills, Maintenance, 09/22/23 12:41:00 PM EST, [facility], Partial fill upon patient request [...] Date: 10/09/22 Status: Ordered Repeat number: 1 celecoxib 200 mg oral capsule 60 each, 0 Refill(s), 0 Refills, 09/30/24 1:37:00 PM EST, Partial fill upon patient request if the prescription is for a schedule II opioid drug. Start Date: 09/30/24 Status: Ordered Repeat number: 1 CoQ10 100 [...] change every 10 days. 90 days supplies, 08/26/24 3:45:00 PM EST, Supply, 183,cm, 08/26/24 14:02:00 EST, Height, 110.6, kg, 08/26/24 14:02:00 EST, Dry Weight Start Date: 08/26/24 Status: Ordered Quantity: 9.0 Unit: each Repeat [...] number: 1 erythromycin 250 mg oral tablet See Instructions, TAKE 1/2 TABLET BY MOUTH EVERY 4 HOURS, MAY TAKE WITH FOOD TO MINIMIZE ABDOMINAL DISCOMFORT, # 270 tablet, 0 Refills, Maintenance, 09/08/24 10:09:00 AM EST, [facility], 183, cm, 08/26/24 14:02:00 EST, Height, 110.6, kg, 08/26/24 14:02:00 EST, Dry Weight Start Date: 09/08/24 Status: Ordered Quantity: 270.0 Unit: tablet Repeat number: 1 Fish Oil 500 mg oral capsule 1 capsule = 500 mg, By Mouth, Daily, 0 Refills, Maintenance, 10/09/22 1:14:00 PM EST, Partial fill upon patient request if the prescription is for a schedule II opioid drug. Start Date: 10/09/22 Status: Ordered Repeat number: 1 furosemide 20 mg oral tablet 90 each, 0 Refill(s), Refills 0, 09/30/24 1:38:00 PM EST, Partial fill upon patient request if the prescription is for a schedule II opioid drug. Start Date: 09/30/24 Status: Ordered Repeat number: 1 Gvoke HypoPen Two Pack 1 mg/0.2 mL subcutaneous solution See Instructions, INJECT 1MG SUBCUTANEOUSLY ONCE ONLY FOR EMERGENCY/ UNCONSCIOUS. TO BE GIVEN BY FAMILY MEMBER. CALL 911 IF ADMINISTERING, # 0.4 mL, 5 Refills, Maintenance, 05/14/24 6:19:00 AM EDT, [facility], 184, cm, 04/22/24 13:48:00 [...] Quantity: 1.0 Unit: each Repeat number: 12 lisinopril 10 mg oral tablet 90 each, 0 Refill(s), Refills 0, 09/30/24 1:37:00 PM EST, Partial fill upon patient request if the prescription is for a schedule II opioid drug. Start Date: 09/30/24 Status: Ordered Repeat number: 1 Lyrica 150 mg oral capsule 1 capsule = 150 mg, By Mouth, 3 times a day, # 90 capsule, 0 Refills, Maintenance, 05/21/23 10:45:00AM EDT, Capsule, Partial fill upon patient request if the prescription is for a schedule II opioid drug. Start Date: 05/21/23 Status: Ordered Quantity: 90.0 Unit: capsule Repeat number: 1 metoprolol 25 mg oral tablet, extended release 0 Refill(s), Refills 0, 09/30/24 1:37:00 PM EST, Partial fill upon patient request if the prescription is for a schedule II opioid drug. Start Date: 09/30/24 Status: Ordered Repeat number: 1 metoprolol succinate 25 mg oral capsule, extended release 0.5 capsule = 12.5 mg, By Mouth, Daily, # 30 capsule, 0 Refills, Maintenance, 08/26/24 2:07:00 PM EST, ER Capsule, Partial fill upon patient request if the prescription is for a schedule II opioid drug. Start Date: 08/26/24 Status: Ordered Quantity: 30.0 Unit: capsule Repeat number: 1 Metoprolol Succinate ER 25 mg oral tablet, extended release 90 each, 0 Refill(s), Refills 0, 09/30/24 1:37:00 PM EST, Partial fill upon patient request if the prescription is for a schedule II opioid drug. Start Date: 09/30/24 Status: Ordered Repeat number: 1 Misc Rx 1, tablet, [...] Date: 10/31/23 Status: Ordered Repeat number: 1 Miscellaneous Rx 0 Refills, 50 each, 0 Refill(s), 09/30/24 1:38:00 PM EST Start Date: 09/30/24 Status: Ordered Repeat number: 1 Multivitamin 1 tablet, By Mouth, Daily, 0 Refills, Maintenance, 06/03/20 10:14:00 PM EDT Start Date: 06/03/20 Status: Ordered Repeat number: 1 mupirocin 2% topical ointment See Instructions, APPLY TOPICALLY THREE TIMES A DAY FOR 10 DAYS, # 22 Gm, 1 Refills, Maintenance, 01/21/24 11:49:00 AM EDT, [facility], 22, APPLY TOPICALLY THREE TIMES A DAY FOR 10 DAYS, 184, cm, 01/21/24 11:43:00 EDT, Height, 127.5, kg, 11/17/23 12:46:00 EDT, Dry Weight Start Date: 01/21/24 Status: Ordered Quantity: 22.0 Unit: g Repeat number: 1 Non-Pseudo Sinus Pain & Pressure 0 Refills, Maintenance, 09/22/24 12:30:00 PM EST, Partial fill upon patient request if the prescription is for a schedule II opioid drug. Start Date: 09/22/24 Status: Ordered Repeat number: 1 ondansetron 8 mg oral tablet, disintegrating 2 each, 0 Refill(s), 0 Refills, 09/30/24 1:37:00 PM EST, Partial fill upon patient request if the prescription is for a schedule II opioid drug. Start Date: 09/30/24 Status: Ordered Repeat number: 1 Osteo Bi-Flex 2 tabs, By Mouth, Daily, 0 Refills, Maintenance, 10/31/23 9:16:00 AM EST, Partial fill upon patient request if the prescription is for a schedule II opioid drug. Start Date: 10/31/23 Status: Ordered Repeat number: 1 PEG-3350 with Electrolytes (Eqv-GoLYTELY) oral powder for reconstitution 4000 mL, 0 Refill(s), 0 Refills, 09/30/24 1:37:00 PM EST, Partial fill upon patient request if the prescription is for a schedule II opioid drug. Start Date: 09/30/24 Status: Ordered Repeat number: 1 Pen [place], 31 G x 5 mm BD Ultra [...] Quantity: 90.0 Unit: tablet Repeat number: 1 Sudafed 12-Hour 120 mg oral tablet, extended release 0 Refill(s), 0 Refills, 09/30/24 1:37:00 PM EST, Partial fill upon patient request if the prescription is for a schedule II opioid drug. Start Date: 09/30/24 Status: Ordered Repeat number: 1 Tandem Truesteel Infusion sets Tandem Truesteel Infusion sets, See Instructions, # 45 each, Refills 4, Tot. Refills 4, Maintenance, Use infusion set to infuse insulin via insulin pump continuously, change infusion set every 2 daysd/t insulin requirements, E10. 65, 06/22/21 11:37:00 AM EDT, Supply Start Date: 06/22/21 Status: Ordered Quantity: 45.0 Unit: each Repeat number: 5 traMADol 50 mg oral tablet 60 each, 0 Refill(s), 0 Refills, 09/30/24 1:37:00 PM EST, Partial fill upon patient request if the prescription is for a schedule II opioid drug. Start Date: 09/30/24 Status: Ordered Repeat number: 1 Ventolin HFA 108 mcg/inh inhalation aerosol with [...] Personnel Name: Zofia ALEGRIA, Natalie Barone Position: [facility] RN Member Role: Primary Care Nurse Name: Yoana Bullock RN Position: [facility] ED RN W/OE and Tasks Member Role: Primary Care Nurse Name: Laura Lamb RN Position: [facility] SN RN Member Role: Primary Care Nurse Name: Loly Arenas NP Position: [facility] Outreach Member Role: Primary Care Nurse Address: [address] [place] [address]- [place] [employer]: Name: Gabriele Gifford MD Position: [facility] Renal MD Member Role: Lifetime Consulting Physician Address: [address] [facility] [address] [facility] [place] [address]- [place] Tele[employer]: Name: Doretha Avilez MD Position: [facility] Physician - Primary Care Member Role: PCP Address: [address] [place] [address] [place] [address]- Telecom: Name: Mary Solis RN Position: [facility] OB RN Member Role: Primary Care Nurse Name: Kristina Parker RN Position: [facility] RN Member Role: Primary Care Nurse Name: Mir Parada Position: [facility] Outreach Member Role: Lifetime Consulting Physician Name: Miguel Beltran RN Position: [facility] RN Member Role: Primary Care Nurse Name: Barbara Blanca RN Position: [facility] RN Member Role: Primary Care Nurse Care Team Related Persons Name: MARIAH SAUCEDO Name: MARIAH PAT Name: MÓNICA JASSO Insurance Providers Guarantor name: CHRISTOFER SAUCEDO Health Plan Information #: 1 Payer: MEDICARE PART B OUTPT Member Number: NA Policy Number: NA Group Number: NA Health Plan Information #: 2 Payer: [facility] Member Number: NA Policy Number: NA Group Number: NA
--- OUTSIDE RECORDS SUMMARY | 2024-11-18 14:10 | XMS_ITS | Continuity of Care Document ---
Author Organization [facility] Address [address] [address] Care Team Providers Care Social Service Director Name Role Phone IDALIA LEUNG Primary Care Provider SHUBHAM PINEDA Registered Route Associate LAVERNE TRINH Registered Route Associate [phone] DEANA PAYAN Coding Tech Assessment Encounter Date Assessment Date Assessment LastModified by Organization Details LastModified Time 11/05/2024 11/05/2024 Shubham is presenting for a follow up appointment Shubham is doing overall well from a cardiology perspective. There is no evidence of decompensated heart failure, chest pain suggestive of recurrent angina, or arrhythmia. He does continue to have elevated blood pressures at home despite medication changes. We did compared his home blood pressure cuff to a manual blood pressure and his home blood pressure cuff appears to be approximately 10mmHg higher. He reports he can sometimes have headaches and blurred vision with his elevated blood pressures and we discussed if this occurs he needs to seek immediate medical attention as this can be evidence of hypertensive emergency. He expressed verbal understanding. I have asked him to increase his spironolactone to 50mg tablets daily. He agreed to continue to monitor his blood pressure at home. He is scheduled to have an updated echocardiogram and monitor next week which I encouraged him to attend. I have asked him to have an updated BMP next week to reassess his potassium level. We will se him back in office in 2 weeks with updated labs. As always, it is a pleasure seeing patients along with you. Not available 11/05/2024 17:20:18 Plan of Treatment Reminders Order Date Submit Date Provider Last Modified By Organization Details Last Modified Time Details Appointments Any 45 2024 01:00P M Cee Raygoza PA-C Not available Not available Not available Any 15 2024 02:30P M Shubham Pineda MD Not available Not available Not available Lab BMP, serum or plasma 2024 025 THIERRY [facility] (Centralized Electronic Ordering - All Locations), Patient Can Go To The Location Of Their Choice, [id number] 11/05/2024 15:13:28 Referral None recorde d. Procedures None recorde d. Surgeries None recorde d. Imaging electro cardiog cj 2024 025 [email or web address] In-Office Order, Internal Use Only DO Not Attach Compendium DO Not Attach Compendium, Do Not Delete/merge, [id number] 11/05/2024 15:32:06 Medication Orders losarta n 50 mg tablet 2024 025 [facility], [address] [place] [address], [id number], 11/08/2024 13:42:20 spirono lactone 50 mg tablet 2024 025 [facility], [address] [place] [address], [id number], 11/08/2024 13:41:44 metopro lol succina te ER 25 mg tablet, extende d release 24 hr [email or web address] [facility], [address] [place] [address], [id number], 11/05/2024 15:13:09 Patient TargetsNo targets recorded. Patient InstructionsNo instructions recorded. Reason for Referral None Reported. Results Created Date Observation Date Name Description Value Unit Range Abnormal Flag Note LastModifiedBy Organization Detail LastModifiedTime 11/06/19 johana fuller am No observ ation record ed. [email or web address] In-Office Order Internal Use Only DO Not Attach Compendium DO Not Attach Compendium, Do Not Delete/merge, [id number] 11/05/2024 15:13:10 03/14/11/05/2024 johana fuller am No observ ation record ed. BARCODE Not Available 2024 16:35:12 11/11/1911/09/2024 US, echoc ardio gram, trans thora cic, compl ete, w/ color flow No observ ation record ed. [email or web address] [facility] ([facility]) [address] [place] [address], [id number], 11/10/2024 09:09:12 11/11/19 25 11/09/2024 US, echoc ardio gram, trans thora cic, compl ete Study ID: [id number] [facility] [address] [address] Non- Invasi ve Cardio logy Labora tory Transt horaci c Echoca rdiogr am Final Report Name: SLOANE SAUCEDO Study Date: 2024 01:22 PM 308 Patien t Locati on: CD : 1975 Accoun t Number : [id number] Height : 70 in Age: 49 yrs Gender : Male Weight : 231 lb Reason For Study: CHF BSA: 2.2 m2 Orderi ng Physic royal: SLOANE PINEDA Referr ing Physic oryal: Clarence Ramirez Perfor med By: Halver son, Aliya, RDCS Interp retati on Summar y A comple te two-di mensio nal transt horaci c echoca rdiogr am was perfor med (2D, M- mode, Dopple r and color flow Dopple r). A two-di mensio nal transt horaci c echoca rdiogr am was perfor med. The study was techni awais adequa te. Left Ventri mina The left ventri mina is grossl y normal size. There is no thromb us. There is mild concen tric left ventri cular hypert rophy. The left ventri cular ejecti on fracti on is normal . No region al wall motion abnorm alitie s noted. Right Ventri mina The right ventri mina is grossl y normal size. There is normal right ventri cular wall thickn ess. The right ventri cular systol ic functi on is normal . Atria The left atrium is mildly dilate d. The right atrium is mildly dilate d. The intera trial septum is intact with no eviden ce for an atrial septal defect . Mitral Valve The mitral valve is grossl y normal . There is no eviden ce of mitral valve prolap se. No signif icant mitral valve stenos is. There is trace mitral regurg itatio n. Tricus pid Valve The tricus pid valve is not well visual ized, but is grossl y normal . There is no tricus pid valve prolap se. No signif icant tricus pid stenos is. There is trace tricus pid regurg itatio n. Pulmon matti Artery Systol ic Pressu re estima shannan from tricus pid regurg itatio n jet veloci ty is 20 mms of Hg. Aortic Valve The aortic valve is trilea flet. There is no aortic valvul ar vegeta tion. No hemody namica lly signif icant valvul ar aortic stenos is. No aortic regurg itatio n is presen t. Pulmon ic Valve The pulmon ic valve is not well seen, but is grossl y normal . There is no pulmon ic valvul ar stenos is. Trace pulmon ic valvul ar regurg itatio n. Great Vessel s The aortic root is normal size. Mildly dilate d ascend ing aorta. The ascend ing aorta measur es 4.0 cm. The pulmon matti artery is not well visual ized. Inferi or Vena Cava is normal sugges ting a normal right atrial pressu re. Perica rdium/ Pleura l There is no perica rdial effusi on. MMode/ 2D Measur ements & Calcul ations IVSd: 1.4 cm LVIDd: 5.1 cm LVIDs: 3.4 cm LVPWd: 1.2 cm FS: 33.8 % Ao root diam: 3.5 cm EDV(Te ich): 122.8 ml Ao root area: 9.7 cm2 ESV(Te ich): 46.3 ml asc Aorta Diam: 4.0 cm LVOT diam: 2.2 cm LVOT area: 3.8 cm2 EDV(MO D-sp4) : 177.6 ml EF(MOD -sp2): 60.4 % ESV(MO D-sp4) : 82.0 ml EF(MOD -sp4): 53.8 % SV(MOD -sp4): 95.6 ml LA Area AP2C: 21.9 cm2 LA Area AP4C: 24.4 cm2 LA Length : 6.0 cm LA Vol: 76.1 ml LA Vol Index: 34.3 ml/m2 Dopple r Measur ements & Calcul ations MV E max peyton: 49.8 cm/sec MV dec slope: 247.5 cm/sec 2 MV A max peyton: 74.2 cm/sec MV dec time: 0.20 sec MV E/A: 0.67 LV V1 max P.3 mmHg SV(LVO T): 81.8 ml LV V1 mean P.5 mmHg LV V1 max: 103.4 cm/sec LV V1 mean: 76.2 cm/sec LV V1 VTI: 21.5 cm TR max peyton: 206.6 cm/sec TR max P.1 mmHg Electr onical ly Signed By: Sloane Pineda 2024 12:27 PM Authen ticate d by SLOANE PINEDA MD [[id number] ] on 2024 at 13:59: 44 [email or web address] [facility] (Radiology) [address] [place] [address], [address], 11/12/2024 15:22:58 Result Notes None recorded. Problems Name Problem SNOMED Code Status Onset Date Resolution Date Notes Provider Name and Address Organization Details Recorded Time Mixed hyperlipid emia 495511900 Active 2023 Natasha aceves [facility] 4 15:20:19 Benign essential hypertensi on 5191061 Active 2023 Natasha aceves [facility] 4 15:20:19 Dyspnea 666693314 Active 2023 Natasha aceves [facility] 4 15:20:20 Chest pain 99158290 Active 2023 Natasha aceves [facility] 4 15:20:22 Chronic combined systolic and diastolic heart failure 836977751003 100 Active 2023 [facility] 4 15:20:23 Type 1 diabetes mellitus 81426249 Active 2023 Cee Raygoza PA-C [address] [place] [address], [address] [place] [address], [facility] 4 12:15:11 Obstructiv e sleep apnea syndrome 95586447 Active on biPAP Ceeanne marie Raygoza PA-C [address] [place] [address], [address] [place] [address], [facility] 4 12:16:31 Chronic obstructiv e pulmonary disease 82777948 Active 2023 Cee Raygoza PA-C [address] [place] [address], [address] [place] [address], [facility] 4 12:16:46 Problem Notes None recorded. Procedures Surgical History Date Name Laterality Status Provider Name and Address Organization Details Recorded Time Hernia Repair completed Laura Cornellwilfredo [facility] 03/01/2024 16:37:06 Imaging Results Imaging Date Name Status LastModified by Organization Details LastModified Time 11/05/2024 electrocardiogram completed In-Offi ce Order Internal Use Only DO Not Attach Compendium DO Not Attach Compendium, Do Not Delete/merge, [id number] 11/05/2024 15:13:10 Procedure Notes None recorded. Medical Equipment None Reported. Allergies Allergen ID Allergen Name Allergen Category Reaction Reaction Severity Criticality Documentation Date Start Date Code Code System Note Provider Name and Address Organization Details Recorded Time 669193 Compazine medicatio n Not available Not available Not available 03/01/202493027 6 RxNorm sever e muscl e spasm Laura Cornellwilfredo ketan [facility] 16:29:57 511770 Imitrex medicatio n Not available Not available Not available 03/01/2024 37467 3 RxNorm Laura aceves, [facility] 4 16:30:08 004875 Motrin medicatio n Not available Not available Not available 03/01/2024 55910 8 RxNorm can' t take- harmf ul to my kidne kelly aceves, [facility] 4 16:30:51 894460 Non-stero idal anti-infl ammatory agent (product) medicatio n other Not available Not available 03/01/2024 65594 005 SNOMED Kortney aceves, [facility] 4 12:49:07 789965 Toradol medicatio n Not available Not available Not available 03/01/2024 28552 RxNorm can' t take- harmf ul to my lexne kelly [facility], [facility] 4 16:31:19 673191 Wellbutri n medicatio n Not available Not available Not available 03/01/2024 94234 RxNorm [facility] 4 16:32:29 358827 codeine medicatio n itching Not available Not available 03/01/2024 2670 RxNorm Kortney aceves, [facility] 4 12:49:07 949073 ibuprofen medicatio n other Not available Not available 03/03/2024 5640 RxNorm Kortney aceves, [facility] 4 12:49:07 143418 POLLEN EXTRACTS environme nt,medica tion Not available Not available Not available 03/03/2024 03752 6 RxNorm Kortney aceves, [facility] 4 12:49:07 997791 cat dander environme nt Not available Not available Not available 03/03/2024 65544 UNK [facility] 4 12:49:07 444478 mold extract environme nt Not available Not available Not available 03/03/2024 18429 8 RxNorm Kortney aceves [facility] 12:49:07 847999 cigarette smoke environme nt Not available Not available Not available 03/03/2024 39445 UNK Kortney Sevilla [facility] 12:49:07 Medications Name Sig Start Date Stop Date Status Note LastModified by Organization Details LastModified Time losartan 50 mg tablet Take 1 tablet twice a day by oral route. 2024 active Not Available Not Available Not Avai lable celecoxib 200 mg capsule Take 1 capsule [...] Not Available spironola ctone 25 mg tablet Take 1 tablet every day by oral route. 11/05 completed increase d to 50mg daily Not Available Not Available Not Available hydrocort [...] completed Not Available Not Available Not Available losartan 25 mg tablet Take 2 tablets twice a day by oral route. 11/04 completed Not Available Not Available Not Available [...] every day by oral route at bedtime. 2024 active Not Available Not Available Not Avai lable lisinopri l 40 mg tablet Take 1 tablet every day by oral route for 90 days. 05/31 completed Not Available Not Available Not Available ondansetr on 4 mg disintegr ating tablet 03/03 completed Not Available Not Available Not Available doxycycli ne hyclate 100 mg tablet TAKE 1 TABLET BY MOUTH TWICE DAILY FOR 7 DAYS 03/03 completed Not Available Not Available Not Available Sudafed 12 Hour 120 mg tablet,ex tended release Take 1 tablet every 12 hours by oral route. active Not Available Not Available No t Available spironola ctone 50 mg tablet Take 1 tablet every day by oral route. 2024 active Not Available Not Available Not Avai lable Ventolin HFA 90 mcg/actua tion aerosol inhaler [...] Available No t Available potassium acetate 99mg 3 tablets BID active OTC per patient Not Available Not Available Not Available Jardiance 10 mg tablet Take 1 tablet every day by oral route for 90 days. 2024 active Not Available Not Available Not Avai lable Arnuity Ellipta 100 mcg/actua tion powder for inhalatio n 05/31 completed Not Available Not Available Not Available Humalog KwikPen U-200 Insulin 200 unit/mL (3 mL) subcutane ous 05/31 completed Not Available Not Available Not Available Entresto 24 mg-26 mg tablet Take 0.5 tablets twice a day by oral route. 10/19 completed ?increas ed thirst, switched to losartan Not Available Not Available Not Available Basaglar KwikPen U-100 Insulin 100 unit/mL [...] height Body mass index (BMI) Body weight Heart rate Systolic blood pressure Diastolic blood pressure Provider Name and Address Organization Details Last Updated DateTime 5 182.88 cm 31.9 kg/m2 051938. 01 g 64 /min 142 mm[Hg] 86 mm[Hg] Geri Ortega [facility] 14:49:18 Social History Question Answer Notes LastModified by Organizat ion Details LastModified Time Tobacco Smoking Status Never Smoker Kortney aceves [facility] 03/03/2024 12:49:23 Do You Have An Advance Directive? No [email or web address] Information not available 03/03/2024 What Is Your Level Of Alcohol Consumption? None [email or web address] Information not available 03/03/2024 Are You Blind Or Do You Have Difficulty Seeing? No [email or web address] Information not available 03/03/2024 Is Blood Transfusion Acceptable In An Emergency? Yes [email or web address] Information not available 03/03/2024 What Is Your Level Of Caffeine Consumption? Occasional [email or web address] Information not available 03/03/2024 Are You Currently Employed? No Information not available 03/03/2024 Are You Deaf Or Do You Have Serious Difficulty Hearing? No [email or web address] Information not available 03/03/2024 What Type Of Diet Are You Following? SPECIFIC [email or web address] Information not available 03/03/2024 Which Of Your Hands Is Dominant? Left [email or web address] Information not available 03/03/2024 What Was The Date Of Your Most Recent Tobacco Screening? 11/05/2024 Information not available 11/05/2024 Do You Have Any Pets? Yes [email or web address] Information not available 03/03/2024 What Is Your Relationship Status? Single [email or web address] Information not available 03/03/2024 Do You Feel Stressed (tense, Restless, Nervous, Or Anxious, Or Unable To Sleep At Night)? [id number] [email or web address] Information not available 03/03/2024 Do You Use Any Illicit Or Recreational Drugs? No Information not available 10/19/2024 Has Tobacco Cessation Counseling Been Provided? No Information not available 11/05/2024 Do You Or Have You Ever Used Any Other Forms Of Tobacco Or Nicotine? No [email or web address] Information not available 03/03/2024 Sex: Unknown Functional Status Question Answer Note LastModified by Organizat ion Details LastModified Time Are you able to care for yourself? No Information not available 03/03/2024 What is your exercise level? Occasional [email or web address] Information not available 03/03/2024 Mental Status None recorded. Family History Relationship Description Onset Age of this Age Resolved Age Notes LastModified by Organization Details LastModified Time Mother Depressive disorder [email or web address] Not available 2023 12:49:12 Unspecified Relation Malignant tumor of colon [email or web address] Not available 2023 12:49:12 Unspecified Relation Hyperlipidem ia [email or web address] Not available 2023 12:49:12 Maternal Grandmother Myocardial infarction [email or web address] Not available 03/03 12:49:12 Maternal Grandmother Family history of malignant neoplasm [email or web address] Not available 2023 12:49:12 Maternal Grandmother Hypertensive disorder [email or web address] Not available 2023 12:49:12 Maternal Grandfather Myocardial infarction [email or web address] Not available 03/03 12:49:12 Maternal Grandfather Cerebrovascu lar accident Not available 05/2024 12:49:12 Maternal Grandfather Diabetes mellitus [email or web address] Not available 2023 12:49:12 Father Depressive disorder Not available 2023 12:49:12 Father Diabetes mellitus [email or web address] Not available 2023 12:49:12 Medical History Condition [...] SNOMED-CT Code Diagnosis ICD10 Code Diagnosis Note 2309999 Cee Raygoza PA-C [facility] [address] [facility] [address], [place] [address] 10/19/2024 08:03:44 10/19/2024 10:50:35 Chronic combined systolic and diastolic heart failure 5955406552 34066 I50.42 STOP Entresto 0.5 tablets twice dailySTART losartan 12.5mg tablets in the AMContinue metoprolol succinate 12.5mg tablets at bedtime Benign ess ential hypertension 2782429 I10 Chronic ob structive pulmonary disease 58185673 J44.9 Mixed hyperlipidemia 267 908779 E78.2 Obstructiv e sleep apnea syndrome 89534602 G47.33 Type 1 [place] betes mellitus 60046078 E10.9 Increased thirst 8373328 03 R63.1 History of syncope 15341 85464 17771 Z86.79 0046000 Cee Raygoza PA-C [facility] [address] [facility] [address] [place] [address] 11/05/2024 14:36:23 11/05/2024 15:32:06 Chronic combined systolic and diastolic heart failure 3500609685 29790 I50.42 Chronic ob structive pulmonary disease 36141550 J44.9 Benign ess ential hypertension 6027776 I10 Type 1 [place] betes mellitus 16588263 E10.9 Mixed hyperlipidemia 267 898104 E78.2 Edema of l ower extremity 872558714 R60.0 Health Concerns Section Related Observation LastModified by Organization Detai ls LastModified Time None Recorded Concern Status LastModified by Organization Details LastModified Time None Recorded Payers Encounter Date Sequence Insurance Name Policy Number Policy Rodriguez Covered Member ID Rodriguez Member ID Guarantor Name 11/05/2024 1 [place] [employer] Shubham Saucedo [id number] Shubham Saucedo 11/05/2024 2 [place] [facility] Shubham Saucedo [id number] Shubham Saucedo Notes Date Note Type Note Provider Name and Address Organization Details Recorded Time 11/05/2024 text/html Shubham Saucedo i s presenting to the office for a follow up appointment. He has a past medical history of T1DM, HTN, chronic systolic and diastolic heart failure, HLD, SABRINA. His last appointment in our office was on 10/19/24 with me as a telemedicine appointment. Today, Shubham feels well. He is very stressed about his blood pressure. He does have headaches with higher blood pressures as well as pulsatile tinnitus. He also can have blurred vision with high blood pressure as well. He does feel his vision might be somewhat blurred today. His states he is supposed to wear glasses but is not. Denies shortness of breath, chest pain, dizziness, light headedness, palpitations, syncope, near syncope, changes in vision, jaw pain, arm pain on exertion, numbness, weakness, orthopnea or sleeping with more pillows at night, lower extremity edema. ----Stress 03/02/24Echo 12/01/23Lipid 09/22/24 Cee Raygoza PA-C [address] [place], [address], [place] [facility]. 11/05/2024 17:21:32
--- OUTSIDE RECORDS SUMMARY | 2024-11-18 14:10 | XMS_ITS | Continuity of Care Document ---
Author Organization [facility] Address [address] [place] [address]- Care Team Providers Care Magneto Specialist Name Role Phone Raghav CARDENAS, Doretha Pierre Primary Care Physician Encounter [facility] Date(s): 09/20/24 - 10/20/[address] [facility] [address] [place] [address] Encounter Type: Triage Allergies, Adverse Reactions, Alerts Substance Criticality Severity Reaction Reaction Severity Status NSAIDs can't take-micah mful to my kidneys [...] influenza virus vaccine, inactivated 06/07/08 Give n [id number] 12y+ bivalent booster vax 09/05/22 Recorded SARS-CoV-2 mRNA ([id number]) vax 02/23/22 Recorded SARS-CoV-2 (COVID-19) mRNA BNT-162b2 [...] Given 1Admin Note: SANOFI PASTEUR 2Result Comment: [id number] and expiration 1175F, [id number] 3Result Comment: Lot # [id number] Exp January 21, 2007 Medications Admelog 100 units/mL injectable solution See Instructions, USE TO INFUSE INSULIN CONTINUOUSLY; MAX DAILY DOSE OF 120 UNITS, # 110 mL, 3 Refills, Maintenance, 08/26/24 3:45:00 PM EST, [facility], 183, cm, 08/26/24 14:02:00 EST, Height, [...] Maintenance, 06/06/20 1:49:00 PM EDT, Inhalation Solution, [id number], 3 mL Neb 4 times a day,x30 [...] 11 Refills, Maintenance, 09/22/23 12:41:00 PM EST, [facility], Partial fill upon patient [...] 0 Refills, Maintenance, 09/08/24 10:09:00 AM EST, [facility], 183, cm, 08/26/24 14:02:00 EST, [...] 5 Refills, Maintenance, 05/14/24 6:19:00 AM EDT, [facility], 184, cm, 04/22/24 13:48:00 EDT, [...] 1 Refills, Maintenance, 01/21/24 11:49:00 AM EDT, [facility], 22, APPLY TOPICALLY THREE TIMES [...] 09/30/24 Status: Ordered Repeat number: 1 [place], 31 G x 5 mm BD Ultra [...] team information Care Team Personnel Name: Zofia RN, Natalie Barone Position: [facility] RN Member Role: Primary Care Nurse Name: Yoana Bullock RN Position: [facility] ED RN W/OE and Tasks Member Role: Primary Care Nurse Name: Laura Lamb RN Position: [facility] SN RN Member Role: Primary Care Nurse Name: Loly Arenas NP Position: [facility] Outreach Member Role: Primary Care Nurse Address: [address] [place] [address] [place] Telecom: Name: Gabriele Gifford MD Position: [facility] Renal MD Member Role: [employer] Consulting Physician Address: [address] [facility] [address] [facility] [place] [place] [address]- [place] Telecom: Name: Doretha Avilez MD Position: [facility] Physician - Primary Care Member Role: PCP Address: [address] [place] [address] [place] [address]- Telecom: Name: Mary Solis RN Position: [facility] OB RN Member Role: Primary Care Nurse Name: Kristina Parker RN Position: [facility] RN Member Role: Primary Care Nurse Name: Mir Parada Position: [facility] Outreach Member Role: [employer]etime Consulting Physician Name: Miguel Beltran RN Position: [facility] RN Member Role: Primary Care Nurse Name: Barbara Blanca RN Position: [facility] RN Member Role: Primary Care Nurse Care Team Related Persons Name: MARIAH SAUCEDO Name: MARIAH PAT Name: MÓNICA JASSO Insurance Providers Guarantor name: CHRISTOFER HAGERGER Health Plan Information #: 1 Payer: MEDICARE PART B OUTPT Member Number: NA Policy Number: NA Group Number: NA Health Plan Information #: 2 Payer: [facility] Member Number: NA Policy Number: NA Group Number: NA
--- OUTSIDE RECORDS SUMMARY | 2024-11-18 14:10 | XMS_ITS | Clinical Summary ---
Author Organization [facility] Address [address] [place] [address] Care Team Providers Care Resource Manager Forester Name Role Phone Unavailable Primary Care Provider Unavailabl e Allergies Active Allergy Reactions Criticality Noted Date Comments Prochlorperazine Edisylate High 4 dystonic Sumatriptan Palpitations Low 12/19/2013 Ibuprofen Anaphylaxis High 12/19/2013 Ketorolac Tromethamine Anaphylaxis High 12/19/2013 Tramadol 09/10/2015 Bupropion Other (See Comments) 12/19/2013 suicidal Medications Medication Sig Dispensed Refills Start Date End Date Status ABILIFY 30 MG tablet 60 mg daily. 0 11/30/2013 Ac tive atenolol (TENORMIN) 25 MG tablet 25 mg daily. 0 12/14/2013 Active NOVOLOG 100 UNIT/ML injection Sliding scale 0 10/19/2013 Active LANTUS 100 UNIT/ML injection 50 Units daily. 0 11/23/2013 Active lisinopril (PRINIVIL,ZESTRIL) 40 MG tablet 40 mg daily. 0 10/19/2013 Active PARoxetine (PAXIL) 30 MG tablet 60 mg daily. 0 10/19/2013 Active pravastatin (PRAVACHOL) 80 MG tablet 80 mg daily. 0 11/22/2013 Active pregabalin (LYRICA) capsule 150 mg Take 150 mg by mouth 2 (two) times a day. 0 Active hydrochlorothiazide (HYDRODIURIL) tablet 25 mg Take 25 mg by mouth daily. 0 Active oxyCODONE-acetaminoph en (PERCOCET) 5-325 MG per tablet Take 1 tablet by mouth every 4 (four) hours as needed for pain (1-2 tablets every 4-6 hours as needed for pain). 12 tablet 0 10/03/2015 Active Active Problems No known active problems Family History Medical History Relation Name Comments No Sig Med Hx Father No Sig Med Hx Mother Relation Name Status Comments Father Mother Social History Tobacco Use Types Packs/Day Years Used Date Smoking Tobacco: Never Alcohol Use Standard Drinks/Week Comments No 0 (1 standard drink = 0.6 oz pur e alcohol) Sex and Gender Information Value Date Recorded Sex Assigned at Male 11/16/2023 8:27 PM EDT Gender Identity Not on file Sexual Orientation Not on file Job Start Date Occupation Industry Not on file Not on file Not on file Last Filed Vital Signs Vital Sign Reading Time Taken Comments Blood Pressure 148/86 11/16/2023 7:41 PM EDT Pulse 71 11/16/2023 7:41 PM EDT Temperature 36.5 ??C (97.7 ??F) 11/16/2023 7:41 PM ED T Respiratory Rate 16 11/16/2023 7:41 PM EDT Oxygen Saturation 100% 11/16/2023 7:41 PM EDT Inhaled Oxygen Concentration - - Weight 136.1 kg (300 lb) 10/03/2015 6:29 PM EST Height 182.9 cm (6') 10/03/2015 6:29 PM EST Body Mass Index 40.69 10/03/2015 6:29 PM EST Plan of Treatment Not on file
--- OUTSIDE RECORDS SUMMARY | 2024-11-18 14:10 | XMS_ITS | Clinical Summary ---
Author Organization [facility] Address [address] [place] [id number] Care Team Providers Care Deodorizer Operator Name Role Phone Unavailable Primary Care Provider Unavailabl e Social History Tobacco Use Types Packs/Day Years Used Date Smoking Tobacco: Never Assessed Sex and Gender Information Value Date Recorded Sex Assigned at Not on file Legal Sex Male 3:54 AM EST Gender Identity Not on file Sexual Orientation Not on file Plan of Treatment Not on file
--- OUTSIDE RECORDS SUMMARY | 2024-11-18 14:10 | XMS_ITS | Continuity of Care Document ---
Author Organization [facility] Address [address] [place] [address] Phone [phone] Social History Type Date Description Comments Sex Unknown Medical Devices Description No Information Available Encounters Description No Information Available Assessments Description No Information Available Plan of Treatment No Information Available Functional Status Description No Information Available Mental Status Description No Information Available Referrals Description No Information Available
--- OUTSIDE RECORDS SUMMARY | 2024-11-18 14:10 | XMS_ITS | Data Portability ---
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 Trinh performed. Based on his history, he may [...] a small fixed apical defect most likely enrollment eligibility representative of apical thinning. His cardiac MRI [...] 1102 END 1128 Not available 07/12/2024 11:43:11 09/16/2024 09/16/2024 Shubham is presenting for a follow up appointment. He is in office with his . Shubham is doing well from a cardiology perspective. There is no evidence of decompensated heart failure, chest pain suggestive of recurrent angina, or arrhythmia. Shubham recently experienced an episode of near syncope on 09/13 for which he was seen in [facility] emergency room. He states prior to this episode he felt in his usual state of health and had been snowblowing the driveway. He then went into his house and was preparing to walk his dog when he suddenly felt weak, lightheadeded, and near syncopal. He denies loss of consciousness. He then checked his blood pressure and found it to be in the 70s systolic which prompted him to call 911 and begin drinking fluids. He states his blood sugar was WNL at this time and he monitors this very closely at home. At the emergency room, he was given 1L of fluids and his potassium was found to be 3.3 and was repleted prior to discharge. Given his recent episode of near-syncope, I have asked Shubham to have a 30 day monitor to assess for possible arrhythmia resulting in his symptomatology. Shubham has been holding his Entresto, metoprolol succinate, and Jardiance following his hospitalization. His blood pressure in office today was elevated at 162/90. I have asked him to decrease his Entresto from 1 tablet twice daily to 0.5 tablets twice daily. I have also asked him to decrease his metoprolol succinate at 0.5 tablets at bedtime. Shubham agreed to closely monitor his blood pressure at home. We discussed that given Shubham's history of type 1 diabetes, the use of Jardiance is not recommended secondary to increased risk of DKA. Shubham expressed verbal understanding of this risk and was adamant about remaining on this medication for his cardiomyopathy. 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 Payan at [facility] is aware that he is on this medication and he was cleared to remain on this medication and closely monitors his ketone levels at home. He and his expressed verbal understanding of the risks of this medication in the setting of T1DM and agreed to seek immediate medical attention if he develops signs and symptoms of DKA. I have asked him to have an updated echocardiogram to reassess his cardiomyopathy as he has been on his CM regiment for more than 3 months. We will see him back in office in 2-3 months with labs and imaging. As always, it is a pleasure seeing patients along with you. Not available 09/19/2024 21:18:35 10/19/2024 10/19/2024 Shubham is presenting for a symptomatic appointment. Shubham has been feeling quite dehydrated and is drinking a lot of fluids secondary to this. He did stop his Jardiance as instructed and has not taken his furosemide in weeks. His weight is up approximately 7 pounds per the patient though he denies any evidence of fluid retention. He denies dark colored urine. He states since stopping his Jardiance his blood sugars have been elevated and ranging 160-200s. He reports he does check his ketone levels daily and they have been within normal limits. We discussed his elevated blood sugar levels are likely contributing in part to his increased thirst and I encouraged him to follow up with his etch operator semiconductor wafers regarding his blood sugar levels. Shubham is interested in restarting his Jardiance as his blood sugars were well-controlled while on this medication. We again discussed the increased risk of diabetic euglycemic ketoacidosis in type I diabetics on Jardiance and he agreed to discuss this further with his endocrinology team. His blood pressures have been ranging systolic 130-140s and occasionally into the 160s at home. We did discuss there is a reported side effect of increased thirst with Entresto and that we could trial switching this medication to losartan with monitoring of his symptoms. Shubham was agreeable with this plan. Given his history of hypotension induced syncope in the past we have agreed to titrate this slowly and he will start at 12.5 mg tablets in the mornings. He agreed to closely monitor his blood pressures at home and contact the office if consistently >140/90 for further instruction. We will see him back in office in 1 month with updated labs As always, it is a pleasure seeing patients along with you. This was a telemed phone visit between myself at [facility] and the patient whom was at home. The patient requested and consented to the visit as he/she was unable to come to the office due to the transportation issue. 50% of the visit was spent counseling and education the patient on his/her condition. Total time spent with the patient was 16 minutes START 1007 END 1024 Not available 10/19/2024 10:36:42 11/05/2024 11/05/2024 Shubham is presenting for a [...] available Lab BMP, serum or plasma 2024 0314 025 THIERRY [facility] (Centralized Electronic Ordering - All Locations), Patient Can Go To The Location Of Their Choice, [id number] 11/05/2024 15:13:28 lipid panel, serum 2024 025 [facility]Y [facility] ([facility]ized Electronic Ordering - All Locations), Patient Can Go To The Location Of Their Choice, 11/04/2024 13:05:19 AST/SGO T (aspart ate aminotr ansfera se), serum or plasma 2024 025 THIERRY [facility] (Centralized Electronic Ordering - All Locations), Patient Can Go To The Location Of Their Choice, 11/04/2024 13:05:21 ALT (alanin e aminotr ansfera se), serum or plasma 2024 025 THIERRY [facility] (Centralized Electronic Ordering - All Locations), Patient Can Go To The Location Of Their Choice, 11/04/2024 13:05:21 CK (creati ne kinase) , total, serum 2024 025 THIERRY [facility] (Centralized Electronic Ordering - All Locations), Patient Can Go To The Location Of Their Choice, 11/04/2024 13:05:20 BMP, serum or plasma 2024 025 THIERRY [facility] (Centralized Electronic Ordering - All Locations), Patient Can Go To The Location Of Their Choice, 11/04/2024 13:05:19 lipid panel, serum 2024 025 THIERRY [facility] (Centralized Electronic Ordering - All Locations), Patient Can Go To The Location Of Their Choice, 09/23/2024 08:08:21 AST/SGO T (aspart ate aminotr ansfera se), serum or plasma 2024 025 THIERRY [facility] (Centralized Electronic Ordering - All Locations), Patient Can Go To The Location Of Their Choice, 09/23/2024 08:08:22 ALT (alanin e aminotr ansfera se), serum or plasma 2024 025 THIERRY [facility] (Centralized Electronic Ordering - All Locations), Patient Can Go To The Location Of Their Choice, 09/23/2024 08:08:23 CK (creati ne kinase) , total, serum 2024 THIERRY [facility] (Centralized Electronic Ordering - All Locations), Patient Can Go To The Location Of Their Choice, 09/23/2024 08:08:22 BMP, serum or plasma 2024 THIERRY [facility] ([facility]ized Electronic Ordering - All Locations), Patient Can Go To The Location Of Their Choice, 09/23/2024 08:08:21 BMP, serum or plasma 2023 THIERRY [facility] (Centralized Electronic Ordering - All Locations), Patient Can Go To The Location Of Their Choice, 07/22/2024 08:08:19 pro BNP (pro B-type natriur etic peptide ), serum or plasma 2023 THIERRY [facility] (Centralized Electronic Ordering - All Locations), Patient Can Go To The Location Of Their Choice, 07/22/2024 08:08:19 lipid panel, serum 2023 THIERRY [facility] (Centralized Electronic Ordering - All Locations), Patient Can Go To The Location Of Their Choice, 07/22/2024 08:08:13 AST/SGO T (aspart ate aminotr ansfera se), serum or plasma 2023 THIERRY [facility] ([facility]ized Electronic Ordering - All Locations), Patient Can Go To The Location Of Their Choice, 07/22/2024 08:08:15 ALT (alanin e aminotr ansfera se), serum or plasma 2023 THIERRY [facility] ([facility]ized [facility] Ordering - All Locations), Patient Can Go To The Location Of Their Choice, 07/22/2024 08:08:15 CK (creati ne kinase) , total, serum 2023 THIERRY [facility] ([facility]ized [facility] Ordering - All Locations), Patient Can Go To The Location Of Their Choice, 07/22/2024 08:08:14 BMP, serum or plasma 2023 THIERRY [facility] (Centralized [facility] Ordering - All Locations), Patient Can Go To The Location Of Their Choice, [id number] 07/22/2024 08:08:14 Referral None recorde d. Procedures None recorde d. Surgeries None recorde d. Imaging electro cardiog cj 2024 025 adonay In-Office Order, Internal Use Only DO Not Attach Compendium DO Not Attach Compendium, Do Not Delete/merge, [id number] 11/05/2024 15:32:06 US, echocar diogram , transth oracic, complet e, w/ color flow - 2D Color-f low and Doppler with contras t if clinica lly indicat ed accordi ng to protoco l WITH CONTRAS T 2024 025 [facility] ([facility]uling [facility]), [address] [place] [address], [id number], 11/10/2024 08:58:10 monitoring engineer 2024 025 [facility] (Central Scheduling For Imaging [facility]), [address] [place] [address], [id number], 11/10/2024 09:08:02 electro cardiog cj 2024 025 [place] In-Office Order, Internal Use Only DO Not Attach Compendium DO Not Attach Compendium, Do Not Delete/merge, [id number] 09/16/2024 16:49:24 electro cardiog cj 2023 024 [place] In-Office Order, Internal Use Only DO Not Attach Compendium DO Not Attach Compendium, Do Not Delete/merge, [id number] 05/31/2024 14:40:11 Medication Orders losarta n 50 mg tablet 2024 025 [facility], [address] [place] [address], [id number], 11/08/2024 13:42:20 spirono lactone 50 mg tablet 2024 025 [facility], [address] [place] [address], [id number], 11/08/2024 13:41:44 metopro lol succina te ER 25 mg tablet, extende d release 24 hr [address], [address] [place] [address], [id number], 11/05/2024 15:13:09 losarta n 25 mg tablet [address], [address] [place] [address], [id number], 11/04/2024 10:08:38 Entrest o 24 mg-26 mg tablet [address], [address] [place] [address], [id number], 10/19/2024 10:33:39 Jardian ce 10 mg tablet 2023 024 [facility], [address] [place] [address], [id number], 10/25/2024 12:35:57 Patient TargetsNo targets recorded. Patient InstructionsNo instructions recorded. Reason for Referral None Reported. Results Created Date Observation Date Name Description Value Unit Range Abnormal Flag Note LastModifiedBy Organization Detail LastModifiedTime 07/21/2007/21/2024 CHOL+ TRIG+ HDL+L DL-D cholesterol, total 98 mg/dL 100-19 9 below low normal Not Available [facility] ([facility]) [address] [place], [address], 07/22/2024 08:08:13 07/21/2007/21/2024 CHOL+ TRIG+ HDL+L DL-D triglyceride s 68 mg/dL 0-149 normal Not Available [facility] ([facility]) [address] [place], [address], 07/22/2024 08:08:13 07/21/2007/21/2024 CHOL+ TRIG+ HDL+L DL-D HDL cholesterol 35 mg/dL >39 below low normal Not Available [facility] ([facility]) [address] [place], [address], 07/22/2024 08:08:13 07/21/20 24 07/22/2024 CHOL+ TRIG+ HDL+L DL-D LDL chol. 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 Not Available [facility] ([facility]) [address] [facility], [place], [address], 07/22/2024 08:08:13 07/21/2007/21/2024 BASIC METAB OLIC PANEL (8) glucose 49 mg/dL 70-99 below low normal Not Available [facility] ([facility]) [address] [place], [address], 07/22/2024 08:08:14 07/21/20 24 07/21/2024 BASIC METAB OLIC PANEL (8) BUN 16 mg/dL 6-24 normal Not Available [facility] ([facility]) [address] [place], [address], 07/22/2024 08:08:14 07/21/20 24 07/21/2024 BASIC METAB OLIC PANEL (8) creatinine 1.03 mg/dL 0.76-1 .27 normal Not Available [facility] ([facility]) [address] [place], [address], 07/22/2024 08:08:14 07/21/20 24 07/21/2024 BASIC METAB OLIC PANEL (8) eGFR 90 mL/mi n/1.7 3 >59 normal Not Available [facility] ([facility]) [address] [facility], [place], [address], 07/22/2024 08:08:14 07/21/20 24 07/21/2024 BASIC METAB OLIC PANEL (8) BUN/creatini ne ratio 16 9-20 normal Not Available [facility] ([facility]) [address] [facility], [place], [address], 07/22/2024 08:08:14 07/21/20 24 07/21/2024 BASIC METAB OLIC PANEL (8) sodium 140 mmol/ L 134-14 4 normal Not Available [facility] ([facility]) [address] [facility], [place], [address], 07/22/2024 08:08:14 07/21/20 24 07/21/2024 BASIC METAB OLIC PANEL (8) potassium 4.1 mmol/ L 3.5-5. 2 normal Not Available [facility] ([facility]) [address] [facility], [place], [address], 07/22/2024 08:08:14 07/21/20 24 07/21/2024 BASIC METAB OLIC PANEL (8) chloride 101 mmol/ L 96-106 normal Not Available [facility] ([facility]) [address] [facility], [place], [address], 07/22/2024 08:08:14 07/21/20 24 07/21/2024 BASIC METAB OLIC PANEL (8) carbon dioxide, total 28 mmol/ L 20-29 normal Not Available [facility] ([facility]) [address] [place], [address], 07/22/2024 08:08:14 07/21/20 24 07/21/2024 BASIC METAB OLIC PANEL (8) calcium 9.4 mg/dL 8.7-10 .2 normal Not Available [facility] ([facility]) [address] [facility], [place], [address], 07/22/2024 08:08:14 07/21/20 24 07/22/2024 CK creatine kinase,total 335 U/L 49-439 normal Not Available [facility] ([facility]) [address] [place], [address], 07/22/2024 08:08:14 07/21/20 24 07/21/2024 AST (SGOT ) AST (SGOT) 27 IU/L 0-40 normal Not Available [facility] ([facility]) [address] [place], [address], 07/22/2024 08:08:15 07/21/2007/21/2024 ALT (SGPT ) ALT (SGPT) 24 IU/L 0-44 normal Not Available [facility] ([facility]) [address] [place], [address], 07/22/2024 08:08:15 07/21/2007/22/2024 BASIC METAB OLIC PANEL (8) glucose 48 mg/dL 70-99 below low normal Not Available [facility] ([facility]) [address] [place], [address], 07/22/2024 08:08:19 07/21/20 24 07/22/2024 BASIC METAB OLIC PANEL (8) BUN 16 mg/dL 6-24 normal Not Available [facility] ([facility]) [address] [place], [address], 07/22/2024 08:08:19 07/21/20 24 07/22/2024 BASIC METAB OLIC PANEL (8) creatinine 0.97 mg/dL 0.76-1 .27 normal Not Available [facility] ([facility]) [address] [place], [address], 07/22/2024 08:08:19 07/21/20 24 07/22/2024 BASIC METAB OLIC PANEL (8) eGFR 96 mL/mi n/1.7 3 >59 normal Not Available [facility] ([facility]) [address] [facility], [place], [address], 07/22/2024 08:08:19 07/21/20 24 07/22/2024 BASIC METAB OLIC PANEL (8) BUN/creatini ne ratio 16 9-20 normal Not Available [facility] ([facility]) [address] [facility], [place], [address], 07/22/2024 08:08:19 07/21/20 24 07/22/2024 BASIC METAB OLIC PANEL (8) sodium 141 mmol/ L 134-14 4 normal Not Available [facility] ([facility]) [address] [place], [address], 07/22/2024 08:08:19 07/21/20 24 07/22/2024 BASIC METAB OLIC PANEL (8) potassium 4.1 mmol/ L 3.5-5. 2 normal Not Available [facility] ([facility]) [address] [facility], [place], [address], 07/22/2024 08:08:19 07/21/20 24 07/22/2024 BASIC METAB OLIC PANEL (8) chloride 101 mmol/ L 96-106 normal Not Available [facility] ([facility]) [address] [place], [address], 07/22/2024 08:08:19 07/21/20 24 07/22/2024 BASIC METAB OLIC PANEL (8) carbon dioxide, total 26 mmol/ L 20-29 normal Not Available [facility] ([facility]) [address] [facility], [place], [address], 07/22/2024 08:08:19 07/21/20 24 07/22/2024 BASIC METAB OLIC PANEL (8) calcium 9.6 mg/dL 8.7-10 .2 normal Not Available [facility] ([facility]) [address] [place], [address], 07/22/2024 08:08:19 07/21/2007/22/2024 NT-NJ OBNP nt-probnp <36 pg/mL 0-121 The follo [...] enden t 300 pg/mL Not Available [facility] ([facility]) [address] [place], [address], 07/22/2024 08:08:19 08/17/20 24 08/17/2024 BASIC METAB OLIC PANEL (8) glucose 55 mg/dL 70-99 below low normal Not Available [facility] ([facility]) [address] [place], [address], 08/17/2024 23:05:20 08/17/20 24 08/17/2024 BASIC METAB OLIC PANEL (8) BUN 16 mg/dL 6-24 normal Not Available [facility] ([facility]) [address] [place], [address], 08/17/2024 23:05:20 08/17/20 24 08/17/2024 BASIC METAB OLIC PANEL (8) creatinine 1.07 mg/dL 0.76-1 .27 normal Not Available [facility] ([facility]) [address] [place], [address], 08/17/2024 23:05:20 08/17/20 24 08/17/2024 BASIC METAB OLIC PANEL (8) eGFR 86 mL/mi n/1.7 3 >59 normal Not Available [facility] ([facility]) [address] [place], [address], 08/17/2024 23:05:20 08/17/20 24 08/17/2024 BASIC METAB OLIC PANEL (8) BUN/creatini ne ratio 15 9-20 normal Not Available [facility] ([facility]) [address] [place], [address], 08/17/2024 23:05:20 08/17/20 24 08/17/2024 BASIC METAB OLIC PANEL (8) sodium 139 mmol/ L 134-14 4 normal Not Available [facility] ([facility]) [address] [place], [address], 08/17/2024 23:05:20 08/17/20 24 08/17/2024 BASIC METAB OLIC PANEL (8) potassium 4.7 mmol/ L 3.5-5. 2 normal Not Available [facility] ([facility]) [address] [place], [address], 08/17/2024 23:05:20 08/17/20 24 08/17/2024 BASIC METAB OLIC PANEL (8) chloride 100 mmol/ L 96-106 normal Not Available [facility] ([facility]) [address] [place], [address], 08/17/2024 23:05:20 08/17/20 24 08/17/2024 BASIC METAB OLIC PANEL (8) carbon dioxide, total 30 mmol/ L 20-29 above high normal Not Available [facility] ([facility]) [address] [place], [address], 08/17/2024 23:05:20 08/17/20 24 08/17/2024 BASIC METAB OLIC PANEL (8) calcium 9.8 mg/dL 8.7-10 .2 normal Not Available [facility] ([facility]) [address] [place], [address], 08/17/2024 23:05:20 08/17/20 24 08/17/2024 HEMOG LOBIN A1C hemoglobin A1C 5.6 % 4.8-5. 6 normal Predi abete s: 5.7 - 6.4 Diabe shannan: >6.4 Glyce saritha contr ol for adult s with diabe shannan: <7.0 Not Available [facility] ([facility]) [address] [facility], [place], [address], 08/17/2024 23:05:21 09/22/19 25 09/23/2024 CHOL+ TRIG+ HDL+L DL-D cholesterol, total 102 mg/dL 100-19 9 normal Not Available [facility] ([facility]) [address] [facility], [place], [address], 09/23/2024 08:08:20 09/22/19 25 09/23/2024 CHOL+ TRIG+ HDL+L DL-D triglyceride s 89 mg/dL 0-149 normal Not Available [facility] ([facility]) [address] [facility], [place], [address], 09/23/2024 08:08:20 09/22/19 25 09/23/2024 CHOL+ TRIG+ HDL+L DL-D HDL cholesterol 41 mg/dL >39 normal Not Available [facility] ([facility]) [address] [place], [address], 09/23/2024 08:08:20 09/22/19 25 09/23/2024 CHOL+ TRIG+ HDL+L DL-D LDL chol. 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 Not Available [facility] ([facility]) [address] [place], [address], 09/23/2024 08:08:20 09/22/19 25 09/23/2024 BASIC METAB OLIC PANEL (8) glucose 90 mg/dL 70-99 normal Not Available [facility] ([facility]) [address] [place], [address], 09/23/2024 08:08:21 09/22/19 25 09/23/2024 BASIC METAB OLIC PANEL (8) BUN 19 mg/dL 6-24 normal Not Available [facility] ([facility]) [address] [place], [address], 09/23/2024 08:08:21 09/22/19 25 09/23/2024 BASIC METAB OLIC PANEL (8) creatinine 1.14 mg/dL 0.76-1 .27 normal Not Available [facility] ([facility]) [address] [place], [address], 09/23/2024 08:08:21 09/22/19 25 09/23/2024 BASIC METAB OLIC PANEL (8) eGFR 79 mL/mi n/1.7 3 >59 normal Not Available [facility] ([facility]) [address] [place], [address], 09/23/2024 08:08:21 09/22/1909/23/2024 BASIC METAB OLIC PANEL (8) BUN/creatini ne ratio 17 9-20 normal Not Available [facility] ([facility]) [address] [place], [address], 09/23/2024 08:08:21 09/22/19 25 09/23/2024 BASIC METAB OLIC PANEL (8) sodium 142 mmol/ L 134-14 4 normal Not Available [facility] ([facility]) [address] [place], [address], 09/23/2024 08:08:21 09/22/19 25 09/23/2024 BASIC METAB OLIC PANEL (8) potassium 3.9 mmol/ L 3.5-5. 2 normal Not Available [facility] ([facility]) [address] [place], [address], 09/23/2024 08:08:21 09/22/19 25 09/23/2024 BASIC METAB OLIC PANEL (8) chloride 99 mmol/ L 96-106 normal Not Available [facility] ([facility]) [address] [place], [address], 09/23/2024 08:08:21 09/22/19 25 09/23/2024 BASIC METAB OLIC PANEL (8) carbon dioxide, total 27 mmol/ L 20-29 normal Not Available [facility] ([facility]) [address] [place], [address], 09/23/2024 08:08:21 09/22/19 25 09/23/2024 BASIC METAB OLIC PANEL (8) calcium 9.6 mg/dL 8.7-10 .2 normal Not Available [facility] ([facility]) [address] [place], [address], 09/23/2024 08:08:21 09/22/19 25 09/23/2024 CK creatine kinase,total 242 U/L 49-439 normal Not Available [facility] ([facility]) [address] [place], [address], 09/23/2024 08:08:21 09/22/1909/23/2024 AST (SGOT ) AST (SGOT) 25 IU/L 0-40 normal Not Available [facility] ([facility]) [address] [place], [address], 09/23/2024 08:08:22 09/22/19 25 09/23/2024 ALT (SGPT ) ALT (SGPT) 26 IU/L 0-44 normal Not Available [facility] ([facility]) [address] [place], [address], 09/23/2024 08:08:22 10/18/1910/19/2024 BASIC METAB OLIC PANEL (8) glucose 128 mg/dL 70-99 above high normal Not Available [facility] ([facility]) [address] [place], [address], 10/19/2024 03:05:13 10/18/1910/19/2024 BASIC METAB OLIC PANEL (8) BUN 16 mg/dL 6-24 normal Not Available [facility] ([facility]) [address] [place], [address], 10/19/2024 03:05:13 10/18/1910/19/2024 BASIC METAB OLIC PANEL (8) creatinine 1.10 mg/dL 0.76-1 .27 normal Not Available [facility] ([facility]) [address] [place], [address], 10/19/2024 03:05:13 10/18/1910/19/2024 BASIC METAB OLIC PANEL (8) eGFR 82 mL/mi n/1.7 3 >59 normal Not Available [facility] ([facility]) [address] [place], [address], 10/19/2024 03:05:13 10/18/1910/19/2024 BASIC METAB OLIC PANEL (8) BUN/creatini ne ratio 15 9-20 normal Not Available [facility] ([facility]) [address] [place], [address], 10/19/2024 03:05:13 10/18/1910/19/2024 BASIC METAB OLIC PANEL (8) sodium 139 mmol/ L 134-14 4 normal Not Available [facility] ([facility]) [address] [place], [address], 10/19/2024 03:05:13 10/18/1910/19/2024 BASIC METAB OLIC PANEL (8) potassium 4.6 mmol/ L 3.5-5. 2 normal Not Available [facility] ([facility]) [address] [place], [address], 10/19/2024 03:05:13 10/18/1910/19/2024 BASIC METAB OLIC PANEL (8) chloride 98 mmol/ L 96-106 normal Not Available [facility] ([facility]) [address] [place], [address], 10/19/2024 03:05:13 10/18/1910/19/2024 BASIC METAB OLIC PANEL (8) carbon dioxide, total 24 mmol/ L 20-29 normal Not Available [facility] ([facility]) [address] [place], [address], 10/19/2024 03:05:13 10/18/1910/19/2024 BASIC METAB OLIC PANEL (8) calcium 9.4 mg/dL 8.7-10 .2 normal Not Available [facility] ([facility]) [address] [place], [address], 10/19/2024 03:05:13 11/04/1911/03/2024 BASIC METAB OLIC PANEL (8) glucose 84 mg/dL 70-99 normal Not Available [facility] ([facility]) [address] [place], [address], 11/03/2024 23:05:19 11/04/1911/03/2024 BASIC METAB OLIC PANEL (8) BUN 16 mg/dL 6-24 normal Not Available [facility] ([facility]) [address] [place], [address], 11/03/2024 23:05:19 11/04/1911/03/2024 BASIC METAB OLIC PANEL (8) creatinine 1.02 mg/dL 0.76-1 .27 normal Not Available [facility] ([facility]) [address] [place], [address], 11/03/2024 23:05:19 11/04/19 25 11/03/2024 BASIC METAB OLIC PANEL (8) eGFR 90 mL/mi n/1.7 3 >59 normal Not Available [facility] ([facility]) [address] [place], [address], 11/03/2024 23:05:19 11/04/19 25 11/03/2024 BASIC METAB OLIC PANEL (8) BUN/creatini ne ratio 16 9-20 normal Not Available [facility] ([facility]) [address] [place], [address], 11/03/2024 23:05:19 11/04/19 25 11/03/2024 BASIC METAB OLIC PANEL (8) sodium 139 mmol/ L 134-14 4 normal Not Available [facility] ([facility]) [address] [place], [address], 11/03/2024 23:05:19 11/04/19 25 11/03/2024 BASIC METAB OLIC PANEL (8) potassium 4.6 mmol/ L 3.5-5. 2 normal Not Available [facility] ([facility]) [address] [place], [address], 11/03/2024 23:05:19 11/04/19 25 11/03/2024 BASIC METAB OLIC PANEL (8) chloride 99 mmol/ L 96-106 normal Not Available [facility] ([facility]) [address] [place], [address], 11/03/2024 23:05:19 11/04/19 25 11/03/2024 BASIC METAB OLIC PANEL (8) carbon dioxide, total 28 mmol/ L 20-29 normal Not Available [facility] ([facility]) [address] [place], [address], 11/03/2024 23:05:19 11/04/19 25 11/03/2024 BASIC METAB OLIC PANEL (8) calcium 10.0 mg/dL 8.7-10 .2 normal Not Available [facility] ([facility]) [address] [facility], [place], [address], 11/03/2024 23:05:19 11/04/19 25 11/04/2024 CHOL+ TRIG+ HDL+L DL-D cholesterol, total 100 mg/dL 100-19 9 normal Not Available [facility] ([facility]) [address] [place], [address], 11/04/2024 13:05:19 11/04/19 25 11/04/2024 CHOL+ TRIG+ HDL+L DL-D triglyceride s 39 mg/dL 0-149 normal Not Available [facility] ([facility]) [address] [place], [address], 11/04/2024 13:05:19 11/04/19 25 11/04/2024 CHOL+ TRIG+ HDL+L DL-D HDL cholesterol 43 mg/dL >39 normal Not Available [facility] ([facility]) [address] [place], [address], 11/04/2024 13:05:19 11/04/19 25 11/04/2024 CHOL+ TRIG+ HDL+L DL-D LDL chol. 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 Not Available [facility] ([facility]) [address] [place], [address], 11/04/2024 13:05:19 11/04/19 25 11/04/2024 BASIC METAB OLIC PANEL (8) glucose 79 mg/dL 70-99 normal Not Available [facility] ([facility]) [address] [place], [address], 11/04/2024 13:05:19 11/04/19 25 11/04/2024 BASIC METAB OLIC PANEL (8) BUN 16 mg/dL 6-24 normal Not Available [facility] ([facility]) [address] [place], [address], 11/04/2024 13:05:19 11/04/19 25 11/04/2024 BASIC METAB OLIC PANEL (8) creatinine 1.10 mg/dL 0.76-1 .27 normal Not Available [facility] ([facility]) [address] [place], [address], 11/04/2024 13:05:19 11/04/19 25 11/04/2024 BASIC METAB OLIC PANEL (8) eGFR 82 mL/mi n/1.7 3 >59 normal Not Available [facility] ([facility]) [address] [place], [address], 11/04/2024 13:05:19 11/04/19 25 11/04/2024 BASIC METAB OLIC PANEL (8) BUN/creatini ne ratio 15 9-20 normal Not Available [facility] ([facility]) [address] [place], [address], 11/04/2024 13:05:19 11/04/19 25 11/04/2024 BASIC METAB OLIC PANEL (8) sodium 138 mmol/ L 134-14 4 normal Not Available [facility] ([facility]) [address] [place], [address], 11/04/2024 13:05:19 11/04/19 25 11/04/2024 BASIC METAB OLIC PANEL (8) potassium 4.9 mmol/ L 3.5-5. 2 normal Not Available [facility] ([facility]) [address] [facility], [place], [address], 11/04/2024 13:05:19 11/04/19 25 11/04/2024 BASIC METAB OLIC PANEL (8) chloride 99 mmol/ L 96-106 normal Not Available [facility] ([facility]) [address] [place], [address], 11/04/2024 13:05:19 11/04/19 25 11/04/2024 BASIC METAB OLIC PANEL (8) carbon dioxide, total 26 mmol/ L 20-29 normal Not Available [facility] ([facility]) [address] [place], [address], 11/04/2024 13:05:19 11/04/19 25 11/04/2024 BASIC METAB OLIC PANEL (8) calcium 9.8 mg/dL 8.7-10 .2 normal Not Available [facility] ([facility]) [address] [place], [address], 11/04/2024 13:05:19 11/04/19 25 11/04/2024 CK creatine kinase,total 332 U/L 49-439 normal Not Available [facility] ([facility]) [address] [place], [address], 11/04/2024 13:05:20 11/04/19 25 11/04/2024 AST (SGOT ) AST (SGOT) 37 IU/L 0-40 normal Not Available [facility] ([facility]) [address] [place], [address], 11/04/2024 13:05:20 11/04/19 25 11/04/2024 ALT (SGPT ) ALT (SGPT) 30 IU/L 0-44 normal Not Available [facility] ([facility]) [address] [place], [address], 11/04/2024 13:05:21 05/31/20 24 elect rocar diogr am No observ ation record ed. [email or web address] In-Office Order Internal Use Only DO Not Attach Compendium DO Not Attach Compendium, Do Not Delete/merge, [id number] 05/31/2024 13:19:36 06/08/20 24 05/31/2024 elect rocar [...] record ed. [email or web address] Not Available 2023 11:01:52 09/16/19 25 elect rocar diogr am No observ ation record ed. In-Office Order Internal Use Only DO Not Attach Compendium DO Not Attach Compendium, Do Not Delete/merge, [id number] 09/16/2024 14:59:17 09/17/19 25 09/16/2024 elect rocar diogr am No observ ation record ed. BARCODE Not Available 2024 10:31:47 11/06/19 elect rocar diogr am No observ ation record ed. In-Office Order Internal Use Only DO Not Attach Compendium DO Not Attach Compendium, Do Not Delete/merge, [id number] 11/05/2024 15:13:10 11/06/19 25 11/05/2024 elect rocar diogr am No observ ation record ed. BARCODE Not Available 2024 16:35:12 11/11/19 25 11/09/2024 US, echoc ardio gram, trans thora cic, compl ete, w/ color flow No observ ation record ed. [email or web address] [facility] ([facility]uling [facility]) [address] [place] [address], [address], 11/10/2024 09:09:12 11/11/19 11/09/2024 US, echoc artiffanie gram, trans thora cic, compl ete Study ID: [id number] [facility] [address] [address] Non- Invasi ve Cardio logy Jun zabala Transt horaci c Echoca rdiogr am Final Report Name: SLOANE SAUCEDO Study Date: 2024 01:22 PM 308 Patien t Locati on: CD : 1975 Accoun t Number : [id number] Height : 70 in Age: 49 yrs Gender : Male Weight : 231 lb Reason For Study: CHF BSA: 2.2 m2 Orderi ng Physic royal: SLOANE PINEDA Referr ing Physic royal: Clarence Ramirez Perfor med By: Rajni son, Aliya, RDCS Interp retati on Summar [...] Authen ticate d by SLOANE PINEDA MD [[id number] ] on 2024 at 13:59: 44 [email or web address] [facility] (Radiology) [address] [place] [address], [address], 11/12/2024 15:22:58 Result Notes None recorded. Problems Name Problem SNOMED Code Status Onset Date Resolution Date Notes Provider Name and Address Organization Details Recorded Time Mixed hyperlipid emia 497850588 Active 2023 Natasha aceves [facility] 15:20:19 Benign essential hypertensi on 5477963 Active 2023 Natasha aceves [facility] 15:20:19 Dyspnea 106354316 Active 2023 Natasha aceves [facility] 15:20:20 Chest pain 28577782 Active 2023 Natasha aceves [facility] 4 15:20:22 Chronic combined systolic and diastolic heart failure 836172363003 100 Active 2023 Natasha aceves [facility] Physician [facility] 4 15:20:23 Type 1 diabetes mellitus 18341932 Active 2023 Cee Raygoza PA-C [address] [place] [address], [phone], [facility] 4 12:15:11 Obstructiv e sleep apnea syndrome 50913961 Active on biPAP Cee Raygoza PA-C [address] [place] [address], [phone], [facility] 12:16:31 Chronic obstructiv e pulmonary disease 52760708 Active 2023 Cee Raygoza PA-C [address] [place] [address], [phone], [facility] 12:16:46 Problem Notes None recorded. Procedures Surgical History Date Name Laterality Status Provider Name and Address Organization Details Recorded Time Hernia Repair completed Laura Valles [facility] 03/01/2024 16:37:06 Imaging Results Imaging Date Name Status LastModified by Organization Details LastModified Time 05/31/2024 electrocardiogram completed [email or web address] In-Offi ce Order Internal Use Only DO Not Attach Compendium DO Not Attach Compendium, Do Not Delete/merge, [id number] 05/31/2024 13:19:36 05/31/2024 electrocardiogram completed BARCODE Informa tion not available 06/08/2024 12:46:57 03/02/2024 treadmill nuclear stress test (PROC) completed Information not available 06/28/2024 11:01:38 03/30/2024 MRI, heart function and morphology, w/wo contrast completed Information not available 06/28/2024 11:01:52 09/16/2024 electrocardiogram completed In-Offi ce Order Internal Use Only DO Not Attach Compendium DO Not Attach Compendium, Do Not Delete/merge, [id number] 09/16/2024 14:59:17 09/16/2024 electrocardiogram completed BARCODE Informa tion not available 09/17/2024 10:31:47 11/05/2024 electrocardiogram completed In-Offi ce Order Internal Use Only DO Not Attach Compendium DO Not Attach Compendium, Do Not Delete/merge, [id number] 11/05/2024 15:13:10 11/05/2024 electrocardiogram completed BARCODE Informa tion not available 11/05/2024 16:35:12 11/09/2024 US, echocardiogram, transthoracic, complete, w/ color flow completed [address] ([facility]) [address] [place] [address], [address], 11/10/2024 09:09:12 11/09/2024 US, echocardiogram, transthoracic, complete completed [address] [facility] (Radiology) [address] [place] [address], [address], 11/12/2024 15:22:58 Procedure Notes None recorded. Medical Equipment None Reported. Allergies Allergen ID Allergen Name Allergen Category Reaction Reaction Severity Criticality Documentation Date Start Date Code Code System Note Provider Name and Address Organization Details Recorded Time 887792 Compazine medicatio n Not available Not available Not available 03/01/202461476 6 RxNorm sever e muscl e spasm aLura Encarnacion [facility] 4 16:29:57 795856 Imitrex medicatio n Not available Not available Not available 03/01/2024 75981 3 RxNorm Laura [facility]acion [facility] 16:30:08 882428 Motrin medicatio n Not available Not available Not available 03/01/202488702 8 RxNorm can' t take- harmf ul to my kidne kelly [facility]acion [facility] 16:30:51 739349 Non-stero idal anti-infl ammatory agent (product) medicatio n other Not available Not available 03/01/2024 71549 005 SNOMED Kortney Sevilla [facility] 12:49:07 943461 Toradol medicatio n Not available Not available Not available 03/01/2024 57847 RxNorm can' t take- harmf ul to my kidne kelly [facility] 16:31:19 975919 Wellbutri n medicatio n Not available Not available Not available 03/01/2024 20879 RxNorm suici daysi Encarnacion [facility], [facility] 4 16:32:29 228931 codeine medicatio n itching Not available Not available 03/01/2024 2670 RxNorm Kortney aceves, [facility] 4 12:49:07 108450 ibuprofen medicatio n other Not available Not available 03/03/2024 5640 RxNorm Kortney aceves, [facility] 4 12:49:07 033450 POLLEN EXTRACTS environme nt,medica tion Not available Not available Not available 03/03/2024 62734 6 RxNorm Kortney aceves, [facility] 4 12:49:07 199640 cat dander environme nt Not available Not available Not available 03/03/2024 73496 [facility] 12:49:07 330667 mold extract environme nt Not available Not available Not available 03/03/2024 64766 8 RxNorm Kortney aceves, [facility] 4 12:49:07 350446 cigarette smoke environme nt Not available Not available Not available 03/03/2024 69669 [facility] 4 12:49:07 Medications Name Sig Start Date [...] Updated DateTime 4 182.88 cm 34.3 kg/m2 343627. 87 g 97 % 97 % 77 /min 130 mm[Hg] 74 mm[Hg] Mary Roy [facility] 4 13:42:07 Date Recorded Body height Body mass index (BMI) Body weight Provider Name and Address Organization Details Last Updated DateTime 07/12/2024 182.88 cm 32.4 kg/m2 710019.58 g Zari Jen [facility] 07/12/2024 10:12:40 Date Recorded Body height Body mass index (BMI) Body weight Heart rate Systolic blood pressure Diastolic blood pressure Provider Name and Address Organization Details Last Updated DateTime 5 182.88 cm 32.3 kg/m2 384137. 38 g 64 /min 162 mm[Hg] 90 mm[Hg] Geri Ortega [facility] 5 15:12:27 Date Recorded Body height Heart rate Oxygen saturation Oxygen saturation in Arterial blood by Pulse oximetry Body mass index (BMI) Body weight Systolic blood pressure Diastolic blood pressure Provider Name and Address Organization Details Last Updated DateTime 5 182.88 cm 74 /min 99 % 99 % 31.6 kg/m2 616876. 72 g 134 mm[Hg] 83 mm[Hg] Geri Ortega [facility] 5 08:50:13 Date Recorded Body height Body mass index (BMI) Body weight Heart rate Systolic blood pressure Diastolic blood pressure Provider Name and Address Organization Details Last Updated DateTime 182.88 cm 31.9 kg/m2 906995. 01 g 64 /min 142 mm[Hg] 86 mm[Hg] Geri Ortega [facility] 14:49:18 Social History Question Answer Notes LastModified by [email or web address] Details LastModified Time Tobacco Smoking Status Never Smoker Kortney Christianst aceves [facility] 03/03/2024 12:49:23 Do You Have An Advance Directive? No [email or web address] Information not available 03/03/2024 What Is Your Level Of Alcohol Consumption? None [email or web address] Information not available 03/03/2024 Are You Blind Or Do You Have Difficulty Seeing? No [email or web address] Information not available 03/03/2024 Is Blood Transfusion Acceptable In An Emergency? Yes [email or web address] Information not available 03/03/2024 What Is Your Level Of Caffeine Consumption? Occasional [email or web address] Information not available 03/03/2024 Are You Currently Employed? No [email or web address] Information not available 03/03/2024 Are You Deaf Or Do You Have Serious Difficulty Hearing? No Information not available 03/03/2024 What Type Of Diet Are You Following? SPECIFIC [email or web address] Information not available 03/03/2024 Which Of Your Hands Is Dominant? Left Information not available 03/03/2024 What Was The Date Of Your Most Recent Tobacco Screening? 11/05/2024 Information not available 11/05/2024 Do You Have Any Pets? Yes [email or web address] Information not available 03/03/2024 What Is Your Relationship Status? Single [email or web address] Information not available 03/03/2024 Do You Feel Stressed (tense, Restless, Nervous, Or Anxious, Or Unable To Sleep At Night)? [id number] [email or web address] Information not available 03/03/2024 Do You Use [...] 03/03/2024 What is your exercise level? Occasional [email or web address] Information not available 03/03/2024 Mental Status None recorded. Family History Relationship Description Onset Age of this Age Resolved Age Notes LastModified by Organization Details LastModified Time Mother Depressive disorder [email or web address] Not available 2023 12:49:12 Unspecified Relation Malignant tumor of colon Not available 2023 12:49:12 Unspecified Relation Hyperlipidem ia [email or web address] Not available 2023 12:49:12 Maternal Grandmother Myocardial infarction [email or web address] Not available 03/03 12:49:12 Maternal Grandmother Family history of malignant neoplasm [email or web address] Not available 2023 12:49:12 Maternal Grandmother Hypertensive disorder Not available 2023 12:49:12 Maternal Grandfather Myocardial infarction [email or web address] Not available 03/03 12:49:12 Maternal Grandfather Cerebrovascu lar accident Not available 05/2024 12:49:12 Maternal Grandfather Diabetes mellitus [email or web address] Not available 2023 12:49:12 Father Depressive disorder Not available 2023 12:49:12 Father Diabetes mellitus [email or web address] Not available 2023 12:49:12 Medical History Condition Response High Blood Pressure (Hypertension) Y Depression Y High Cholesterol (Hyperlipidemia) Y CHF (Congestive Heart Failure) Y Bleeding Problems Y Diabetes (Insulin Dependent) Y Anxiety N Edema (Swelling) Y Gastrointestinal Disease (IBS, Gastritis , Ulcer, Acid Reflux) Y Neuropathy (Numbness, Pain, Tingling) Y Asthma Y COPD (Chronic Obstructive Pulmonary Dise ase) Y Sleep Apnea Y Past Encounters Encounter ID Performer Location Encounter Start Date Encounter Closed Date Diagnosis/Indication Diagnosis SNOMED-CT Code Diagnosis ICD10 Code Diagnosis Note [id number] Shubham Pineda MD [facility] [address] [facility] [address] [place] [address] 03/03/2024 12:39:58 03/03/2024 14:27:57 Chronic combined systolic and diastolic heart failure 3027518541 13509 I50.42 Chest pain 86178278 R07. 2 Dyspnea 646708869 R06.02 Benign ess ential hypertension 6968390 I10 Mixed hyperlipidemia 267 190113 E78.2 Type 2 [place] mellitus without complication 609857325 E11.9 [id number] Cee Raygoza PA-C [facility] [address] [facility] [place] [address] 05/31/2024 13:17:52 05/31/2024 14:35:17 Chronic diastolic heart failure 059405832 I50.32 Benign ess ential hypertension 1678597 I10 Mixed hyperlipidemia 267 060725 E78.2 Type 1 [place] mellitus 40066177 E10.9 Edema of l ower extremity 528223854 R60.0 [id number] Cee Raygoza PA-C [facility] [address] [facility] [place] [address] 07/12/2024 09:13:48 07/12/2024 12:10:27 Chronic combined systolic and diastolic heart failure 2632640917 05159 I50.42 STOP lisinopril 10mg tablets dailySTOP amlodipine 7.5mg tablets dailySTART Entresto 24-26mg tablet twice dailySTART Jardiance 10mg tablets dailyConti nue metoprolol succinate 25mg tablets at bedtime Benign ess ential hypertension 8369846 I10 Type 1 [place] mellitus 63461202 E10.9 Chronic ob structive pulmonary disease 38994893 J44.9 Mixed hyperlipidemia 267 142821 E78.2 Dyspnea 865824821 R06.00 History of syncope 26687 10484 33793 Z86.79 [id number] Cee Raygoza PA-C [facility] [address] [place] [address] 09/16/2024 14:58:36 09/16/2024 16:11:08 Chronic combined systolic and diastolic heart failure 4682703472 54095 I50.42 Benign ess ential hypertension 5156599 I10 Mixed hyperlipidemia 267 179130 E78.2 Chronic ob structive pulmonary disease 59419762 J44.9 Type 1 [place] mellitus 30060871 E10.9 Obstructiv e sleep apnea syndrome 57313499 G47.33 Syncope 922618146 R55 [id number] Cee Raygoza PA-C [facility] [address] [facility] [place] [address] 10/19/2024 08:03:44 10/19/2024 10:50:35 Chronic combined systolic and diastolic heart failure 0301582174 95329 I50.42 STOP Entresto 0.5 tablets twice dailySTART losartan 12.5mg tablets in the AMContinue metoprolol succinate 12.5mg tablets at bedtime Benign ess ential hypertension 8365746 I10 Chronic ob structive pulmonary disease 81902789 J44.9 Mixed hyperlipidemia 267 680729 E78.2 Obstructiv e sleep apnea syndrome 87342733 G47.33 Type 1 [place] bet[place] mellitus 82241970 E10.9 Increased thirst 9295478 03 R63.1 History of syncope 44304 12788 07831 Z86.79 [id number] eCe Raygoza PA-C [facility] [address] [facility] [place] [address] 11/05/2024 14:36:23 11/05/2024 15:32:06 Chronic combined systolic and diastolic heart failure 1940367292 59643 I50.42 Chronic ob structive pulmonary disease 10426940 J44.9 Benign ess ential hypertension 0967358 I10 Type 1 [place] mellitus 54707514 E10.9 Mixed hyperlipidemia 267 150360 E78.2 Edema of l ower extremity 816137961 R60.0 Health Concerns Section Related Observation LastModified by Organization Detai ls LastModified Time None Recorded Concern Status LastModified by Organization Details LastModified Time None Recorded Advance Directives Directive N: Payers Encounter Date Sequence Insurance Name Policy Number Policy Rodriguez Covered Member ID Rodriguez Member ID Guarantor Name 05/31/2024 1 [place] [employer] Shubham Saucedo [id number] Shubham Saucedo 05/31/2024 2 [place] [facility] Shubham Saucedo [id number] Shubham Saucedo 07/12/2024 1 [place] [employer] Shubham Saucedo [id number] Shubham Saucedo 07/12/2024 2 [place] [facility] Shubham Saucedo [id number] Shubham Saucedo 09/16/2024 1 [place] [facility] Shubham Saucedo [id number] Shubham Saucedo 09/16/2024 2 [place] [facility] Shubham Saucedo [id number] Shubham Saucedo 10/19/2024 1 [place] [facility] Shubham Saucedo [id number] Shubham Saucedo 10/19/2024 2 [place] [facility] Shubham Saucedo [id number] Shubham Saucedo 11/05/2024 1 [place] [facility] Shubham Saucedo [id number] Shubham Saucedo 11/05/2024 2 [place] [facility] Shubham Saucedo [id number] Shubham Saucedo Notes Date Note Type Note Provider Name and Address Organization Details Recorded Time 05/31/2024 text/html Shubham Saucedo i s presenting to [...] home. He is still following with Dr. Trinh in [place], [place] for local care. He may be [...] pillows at night, lower extremity edema. ----ECHO [id number] 03/04/24 BOGDAN Tomlinson-Gabby [address] [place] [address], [phone], [facility] - [facility]. 06/02/2024 13:21:03 07/12/2024 text/html Shubham Saucedo i s presenting to [...] extremity edema. ----treadmill nuclear stress test (PROC) [id number], echocardiogram, transthoracic, complete, w/ color flow [id number] 03/04/24 BOGDAN Tomlinson-Gabby [address] [place] [address], [phone], [facility]. 07/12/2024 12:00:23 09/16/2024 text/html Shubham Saucedo i s presenting to the office for a 2 month follow up appointment. He has a past medical history of combined systolic and diastolic heart failure, COPD, T1DM on insulin, SABRINA on biPAP. His last appointment in our office was on 07/12/24 with me as a telemedicine. At this visit we discussed his recent testing which did reveal cardiomyopathy on his treadmill nuclear stress test with an LVEF of 49% and a cardiac MRI that revealed an LVEF of 46%. His echocardiogram revealed his LVEF to be 50-55%. We discussed starting on a cardiomyopathy regiment and he was agreeable to this with the exception of holding off on the addition of Aldactone at that time given his history of hypotension and syncope in the past. I did ask him to stop his amlodipine and lisinopril. He was recently in the ER for syncope and low blood pressure. This episode came out of nowhere per patient. He had been snowblowing the driveway and felt well then suddenly felt faint and BP in 70s systolic Today, Shubham feels well. He has not had a recurrence of his near-syncopal event. He did hold his Entresto, Jardiance and metoprolol. His lower extremity edema has been well controlled and he rarely requires his furosemide. Denies shortness of breath, chest pain, headache, dizziness, light headedness, palpitations, syncope, near syncope, changes in vision, jaw pain, arm pain on exertion, numbness, weakness, orthopnea or sleeping with more pillows at night, lower extremity edema. ----Lipid (07/21/24)Stress (03/02/24)Echo (12/01/23) Shubham Saucedo is presenting to the office for a 2 month follow up appointment. He has a past medical history of combined systolic and diastolic heart failure, COPD, T1DM on insulin, SABRINA on biPAP. His last appointment in our office was on 07/12/24 with me as a telemedicine. At this visit we discussed his recent testing which did reveal cardiomyopathy on his treadmill nuclear stress test with an LVEF of 49% and a cardiac MRI that revealed an LVEF of 46%. His echocardiogram revealed his LVEF to be 50-55%. We discussed starting on a cardiomyopathy regiment and he was agreeable to this with the exception of holding off on the addition of Aldactone at that time given his history of hypotension and syncope in the past. I did ask him to stop his amlodipine and lisinopril. He was recently in the ER for syncope and low blood pressure. He states the episode came on out of nowhere. Prior to this episode he had been snowblowing the driveway and felt well, planning to walk his dog then suddenly felt faint. He reports that he and his checked his blood pressure and found his systolic BP to be in the 70s. He then began drinking a lot of water and they called 911 and he was brought to the ER. He has had a similar episode in the past. Today, Shubham feels well. He has not had a recurrence of his near-syncope. His lower extremity edema has been well controlled and he rarely requires his furosemide. He did stop his Entresto, Jardiance, and metoprolol succinate after he contacted our office. Denies shortness of breath, chest pain, headache, dizziness, light headedness, palpitations, syncope, changes in vision, jaw pain, arm pain on exertion, numbness, weakness, orthopnea or sleeping with more pillows at night, lower extremity edema. ----Lipid (07/21/24)Stress (03/02/24)Echo (12/01/23) Cee Raygoza PA-C [address] [place] [address], [phone], [facility] - [facility] Physician [facility]. 09/19/2024 21:18:49 10/19/2024 text/html Shubham Saucedo i s presenting to the office for a urgent follow up appointment. He has a past medical history of T1DM, HTN, chronic systolic and diastolic heart failure, HLD, SABRINA. His last appointment in our office was on 09/16/24 with me. At this visit we discussed that Shubham had experienced an episode of near syncope on 09/13 for which he went to the [facility] emergency room. His blood pressure was at home in the 70s systolic which prompted him to call 911 and begin drinking fluids. At the ER he was given a liter of fluids and his potassium was found to be 3.3 and was repleted prior to discharge given his episode of near syncope I asked him to have a 30-day monitor. Shubham had been holding his Entresto, metoprolol, and Jardiance following his hospitalization. His blood pressure in office was elevated at 162/90. I asked him to decrease his Entresto from 1 tablet twice daily to half a tablet twice daily and to decrease his metoprolol succinate to 0.5 tablets at bedtime. We did discuss that given his history of type 1 diabetes use of Jardiance was not recommended secondary to increased risk of DKA. 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 I did also asked him to have an updated echocardiogram to reassess his cardiomyopathy as he had been on his cardiomyopathy regiment for more than 3 months. Patient reached out to the office on 09/20 with concerns of elevated blood pressure readings ranging from 130-160s/80? 90. He was recommended to increase his dose of Entresto back to 1 tablet twice daily. The patient again reached out to the office 10/11 with concerns of dehydration thinking it might be one of his medications. He felt very thirsty during the night and was drinking a lot of water in the morning he did report that his blood sugars were normal . 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 The patient then again contacted the office 10/15 stating his blood pressure in the morning was 115/76 and that he felt okay but then approximately 15 minutes later he started to feel light headed and felt dehydrated despite drinking excessive amounts of fluid. He did reiterate that he did stop the Jardiance per his last conversation with nursing. He was recommended to again follow-up with his etch operator semiconductor wafers as his symptoms may be related to his type 1 diabetes. We discussed reducing his Entresto to 0.5 tablets in the morning and a full tablet at bedtime to have an updated BMP and to stop taking Sudafed if that was something that he was taking as listed on his medication list. He was also recommended to schedule to have his monitoring engineer placed as discussed at his last office visit The patient contacted the office yesterday 10/18 with concerns that he still feels dehydrated and that his sugar has been high since coming off of the Jardiance. He states that he gained 7 pounds in 1 week. Today, Shubham continues to feel dehydrated and is drinking a lot of fluids. He did stop the Jardiance as previously instructed and his sugars have been out of control (160-200) and is still feeling dehydrated. He has not been taking his furosemide. He is scheduled to see endocrinology in 2 months. He states he does check for Ketones daily and WNL. His blood pressure is also increasing and this AM was 134/83 which was an hour after taking his pills. 135/83 in the AM yesterday and in 148/91 in afternoon. He has also been having a lot of headaches with blood pressures in 160s and with higher blood sugars. Urine is not very dark or brown scale of 1-10 it is a 6 . He does take THC pill in afternoon to help with BPs in the afternoon. Denies shortness of breath, chest pain, dizziness, light headedness, palpitations, syncope, near syncope, changes in vision, jaw pain, arm pain on exertion, numbness, weakness, orthopnea or sleeping with more pillows at night, lower extremity edema. ----L 09/22/24S 03/02/24E 12/01/23 BOGDAN Tomlinson-Gabby [address] [place] [address], [phone], [facility] - [facility] Physician [facility] 10/19/2024 10:40:15 11/05/2024 text/html Shubham Saucedo i s presenting [...] ----Stress 03/02/24Echo 12/01/23Lipid 09/22/24 Cee Raygoza PA-C [address] [place] [address], [phone], [facility] - [facility] Physician Services [facility]. 11/05/2024 17:21:32
--- OUTSIDE RECORDS SUMMARY | 2024-11-18 14:11 | XMS_ITS | Continuity of Care Document ---
Author Organization [facility], [facility] Address [address] [address] Care Team Providers Care Fan Mail Editor Name Role Phone IDALIA LEUNG Primary Care Provider CARHector SHUBHAM Greensman LAVERNE TRINH Greensman DEANA PAYAN Greenhouse Transplanter Assessment Encounter Date Assessment Date Assessment LastModified by Organization Details LastModified Time 10/19/2024 10/19/2024 Shubham is presenting for a [...] encouraged him to follow up with his mobile practice lead regarding his blood sugar levels. Shubham is [...] 1007 END 1024 Not available 10/19/2024 10:36:42 Plan of Treatment Reminders Order Date Submit Date Provider Last Modified By Organization Details Last Modified Time Details Appointments Any 45 2024 01:00P M Cee Raygoza PA-C Not available Not available Not available Any 15 2024 02:30P M Shubham Jung MD Not available Not available Not available Lab lipid panel, serum 2024 025 [facility] (Centralized Electronic Ordering - All Locations), Patient Can Go To The Location Of Their Choice, 11/04/2024 13:05:19 AST/SGO T (aspart ate aminotr ansfera se), serum or plasma 2024 025 [facility] (Centralized Electronic Ordering - All Locations), Patient [...] Go To The Location Of Their Choice, [id number] 11/04/2024 13:05:19 Referral None recorde d. Procedures None recorde d. Surgeries None recorde d. Imaging None recorde d. Medication Orders losarta n 25 mg tablet 2024 025 [email or web address] [facility], [address] [place] [address], [address], 11/04/2024 10:08:38 Patient TargetsNo targets recorded. Patient InstructionsNo instructions recorded. Reason for Referral None Reported. Results Created Date Observation Date Name Description Value Unit Range Abnormal Flag Note LastModifiedBy Organization Detail LastModifiedTime 11/06/19 elect rocar diogr am No observ ation record ed. In-Office Order Internal Use Only DO Not Attach Compendium DO Not Attach Compendium, Do Not Delete/merge, [id number] 11/05/2024 15:13:10 11/06/1911/05/2024 elect rocar diogr am No observ ation record ed. BARCODE Not Available 2024 16:35:12 11/11/1911/09/2024 US, echoc ardio gram, trans thora cic, compl ete, w/ color flow No observ ation record ed. [email or web address] [facility] (Central Scheduling For Imaging And Labs) [address] [place] [address], [address], 11/10/2024 09:09:12 11/11/1911/09/2024 US, echoc ardio gram, trans thora cic, compl ete Study ID: [id number] [address] [phone] Non- Invasi ve Cardio logy Jun andino Echoca rdiogr am Final Report Name: SLOANE SAUCEDO Study Date: 2024 01:22 PM [address] Pat[address] t Locati on: CD : 1975 Accoun t Number : [id number] Height : 70 in Age: 49 yrs Gender : Male Weight : 231 lb Reason For Study: CHF BSA: 2.2 m2 Orderi ng Physic royal: SLOANE JUNG Referr ing Physic royal: Clarence Ramirez Perfor med By: Halver son, [...] mmHg Electr onical ly Signed By: Sloane Jung 2024 12:27 PM Authen ticate d by SLOANE JUNG MD [[id number] ] on 2024 at 13:59: [email or web address] [facility] (Radiology) [address] [place] [address], [address], 11/12/2024 15:22:58 Result Notes None recorded. Problems Name Problem SNOMED Code Status Onset Date Resolution Date Notes Provider Name and Address Organization Details Recorded Time Mixed hyperlipid emia 061390561 Active 2023 Natasha aceves [facility] 4 15:20:19 Benign essential hypertensi on 3944623 Active 2023 Natasha aceves [facility] 4 15:20:19 Dyspnea 602507661 Active 2023 Natasha aceves [facility] 4 15:20:20 Chest pain 01613228 Active 2023 Natashajason aceves, [facility] 4 15:20:22 Chronic combined systolic and diastolic heart failure 684662251722 100 Active 2023 Natashajason aceves [facility] 4 15:20:23 Type 1 diabetes mellitus 66212332 Active 2023 Cee Raygoza PA-C [address] [place] [address], [phone], [facility] 4 12:15:11 Obstructiv e sleep apnea syndrome 63397155 Active on biPAP Cee Raygoza PA-C [address] [place] [address], [phone], [facility] 4 12:16:31 Chronic obstructiv e pulmonary disease 24306416 Active 2023 Cee Raygoza PA-C [address] [place] [address], [phone], [facility] 4 12:16:46 Problem Notes None recorded. Procedures Surgical History Date Name Laterality Status Provider Name and Address Organization Details Recorded Time Hernia Repair completed Laura Valles [facility] 03/01/2024 16:37:06 Imaging Results None recorded. Procedure Notes None recorded. Medical Equipment None Reported. Allergies Allergen ID Allergen Name Allergen Category Reaction Reaction Severity Criticality Documentation Date Start Date Code Code System Note Provider Name and Address Organization Details Recorded Time 343132 Compazine medicatio n Not available Not available Not available 03/01/202490640 6 RxNorm sever e muscl e spasm Laura Encarnacion [facility] 16:29:57 977857 Imitrex medicatio n Not available Not available Not available 03/01/202454696 3 [facility] 16:30:08 352077 Motrin medicatio n Not available Not available Not available 03/01/202424265 8 RxNorm can' t take- harmf ul to my kidne ys Laura Encarnacion [facility] 16:30:51 475772 Non-stero idal anti-infl ammatory agent (product) medicatio n other Not available Not available 03/01/2024 48724 005 SNOMED Kortney Sevilla [facility] 12:49:07 151184 Toradol medicatio n Not available Not available Not available 03/01/2024 72440 RxNorm can' t take- harmf ul to my kidne ys Laura Encarnacion [facility] 16:31:19 217556 Wellbutri n medicatio n Not available Not available Not available 03/01/2024 05620 RxNorm suici daysi [facility] 16:32:29 702052 codeine medicatio n itching Not available Not available 03/01/2024 2670 RxNorm Kortney aceves, [facility] 4 12:49:07 848418 ibuprofen medicatio n other Not available Not available 03/03/2024 5640 RxNorm Kortney aceves, [facility] 4 12:49:07 167847 POLLEN EXTRACTS environme nt,medica tion Not available Not available Not available 03/03/2024 57451 6 RxNorm Kortney aceves, [facility] 4 12:49:07 001734 cat dander environme nt Not available Not available Not available 03/03/2024 68221 UNK Kortney aceves [facility] 4 12:49:07 811283 mold extract environme nt Not available Not available Not available 03/03/2024 07812 8 RxNorm [facility] 4 12:49:07 949505 cigarette smoke environme nt Not available Not available Not available 03/03/2024 27436 [facility] 4 12:49:07 Medications Name Sig Start [...] Available Baqsimi 3 mg/actuat ion nasal spray 10/07 /2024 completed Not Available Not Available Not Available Gvoke HypoPen 2-Pack 1 mg/0.2 mL subcutane ous auto-inje ctor 05/31 completed Not Available Not Available Not Available Vitals Date Recorded Body height Heart rate Oxygen saturation Oxygen saturation in Arterial blood by Pulse oximetry Body mass index (BMI) Body weight Systolic blood pressure Diastolic blood pressure Provider Name and Address Organization Details Last Updated DateTime 5 182.88 cm 74 /min 99 % 99 % 31.6 kg/m2 164695. 72 g 134 mm[Hg] 83 mm[Hg] Geri Ortega [facility] 5 08:50:13 Social History Question Answer Notes LastModified by Organizat ion Details LastModified Time Tobacco Smoking Status Never Smoker Kortney aceves [facility] 03/03/2024 12:49:23 Do You Have An Advance Directive? No [email or web address] Information not available 03/03/2024 What Is Your Level Of Alcohol Consumption? None [email or web address] Information not available 03/03/2024 Are You Blind Or Do You Have Difficulty Seeing? No [email or web address] Information not available 03/03/2024 Is Blood Transfusion Acceptable In An Emergency? Yes [email or web address] Information not available 03/03/2024 What Is Your Level Of Caffeine Consumption? Occasional [email or web address] Information not available 03/03/2024 Are You Currently Employed? No [email or web address] Information not available 03/03/2024 Are You Deaf Or Do You Have Serious Difficulty Hearing? No [email or web address] Information not available 03/03/2024 What Type Of Diet Are You Following? SPECIFIC Information not available 03/03/2024 Which Of Your Hands Is Dominant? Left [email or web address] Information not available 03/03/2024 What Was The Date Of Your Most Recent Tobacco Screening? 11/05/2024 Information not available 11/05/2024 Do You Have Any Pets? Yes [email or web address] Information not available 03/03/2024 What Is Your Relationship Status? Single [email or web address] Information not available 03/03/2024 Do You Feel Stressed (tense, Restless, Nervous, Or Anxious, Or Unable To Sleep At Night)? [id number] [email or web address] Information not available 03/03/2024 Do You Use Any Illicit Or Recreational Drugs? No Information not available 10/19/2024 Has Tobacco Cessation Counseling Been Provided? No Information not available 11/05/2024 Do You Or Have You Ever Used Any Other Forms Of Tobacco Or Nicotine? No [email or web address] Information not available 03/03/2024 Sex: Unknown Functional Status Question Answer Note LastModified by Organizat ion Details LastModified Time Are you able to care for yourself? No [email or web address] Information not available 03/03/2024 What is your exercise level? Occasional [email or web address] Information not available 03/03/2024 Mental Status None recorded. Family History Relationship Description Onset Age of this Age Resolved Age Notes LastModified by Organization Details LastModified Time Mother Depressive disorder Not available 2023 12:49:12 Unspecified Relation Malignant tumor of colon [email or web address] Not available 2023 12:49:12 Unspecified Relation Hyperlipidem ia Not available 2023 12:49:12 Maternal Grandmother Myocardial infarction [email or web address] Not available 03/03 12:49:12 Maternal Grandmother Family history of malignant neoplasm [email or web address] Not available 2023 12:49:12 Maternal Grandmother Hypertensive disorder Not available 2023 12:49:12 Maternal Grandfather Myocardial infarction [email or web address] Not available 03/03 12:49:12 Maternal Grandfather Cerebrovascu lar accident [email or web address] Not available 05/2024 12:49:12 Maternal Grandfather Diabetes mellitus [email or web address] Not available 2023 12:49:12 Father Depressive disorder Not available 2023 12:49:12 Father Diabetes mellitus [email or web address] Not available 2023 12:49:12 Medical History Condition [...] SNOMED-CT Code Diagnosis ICD10 Code Diagnosis Note [id number] Cee Raygoza PA-C [facility] [address] [facility] [address] [place] [address] 10/19/2024 08:03:44 10/19/2024 10:50:35 Chronic combined systolic and diastolic heart failure 2517386899 68326 I50.42 STOP Entresto 0.5 tablets twice dailySTART losartan 12.5mg tablets in the AMContinue metoprolol succinate 12.5mg tablets at bedtime Benign ess ential hypertension 5422140 I10 Chronic ob structive pulmonary disease 59859085 J44.9 Mixed hyperlipidemia 267 229586 E78.2 Obstructiv e sleep apnea syndrome 34815074 G47.33 Type 1 [place] betes mellitus 99330320 E10.9 Increased thirst 4730297 03 R63.1 History of syncope 01531 03232 23254 Z86.79 Health Concerns Section Related Observation LastModified by Organization Detai ls LastModified Time None Recorded Concern Status LastModified by Organization Details LastModified Time None Recorded Payers Encounter Date Sequence Insurance Name Policy Number Policy Rodriguez Covered Member ID Rodriguez Member ID Guarantor Name 10/19/2024 1 [place] [employer] Shubham Saucedo [id number] Shubham Saucedo 10/19/2024 2 [place] [facility] Shubham Saucedo [id number] Shubham Saucedo Notes Date Note Type Note Provider Name and Address Organization Details Recorded Time 10/19/2024 text/html Shubham Saucedo i s presenting [...] 09/13 for which he went to the [facility] emergency room. His blood pressure was at [...] that he had discussed this with his mobile practice lead aware that he was on this medication. I did also asked him to have an updated echocardiogram to reassess his cardiomyopathy as he had been on his cardiomyopathy regiment for more than 3 months. Patient reached out to the office on 09/20 with concerns of elevated blood pressure readings ranging from 130-160s/80? 9 0. He was recommended to increase his dose [...] symptoms as well as follow-up with his mobile practice lead. The patient then again contacted the office [...] was recommended to again follow-up with his mobile practice lead as his symptoms may be related to his type 1 diabetes. We discussed reducing his Entresto to 0.5 tablets in the morning and a full tablet at bedtime to have an updated BMP and to stop taking Sudafed if that was something that he was taking as listed on his medication list. He was also recommended to schedule to have his senior production planner placed as discussed at his last office [...] edema. ----L 09/22/24S 03/02/24E 12/01/23 BOGDAN Tomlinson-Gabby [address] [place] [address], [phone], [facility] - [facility] Physician Services [facility]. 10/19/2024 10:40:15
--- OUTSIDE RECORDS SUMMARY | 2024-11-18 14:11 | XMS_ITS | Clinical Summary ---
Author Organization [facility] Address [address] [place] [address] Phone Care Team Providers Care Gold Leaf Laborer Name Role Phone Doretha Avilez MD Primary Care Provider + [phone] Allergies Active Allergy Reactions Criticality Noted Date Comments Acetaminophen-Codeine 09/13/2024 Prochlorperazine 09/13/2024 Medications lisinopriL (PRINIVIL,ZESTRI L) 10 mg tablet TAKE 1 TABLET BY MOUTH DAILY. 90 tablet 3 09/08/2024 Active rosuvastatin (CRESTOR) 40 mg tablet TAKE ONE TABLET BY MOUTH ONCE DAILY 90 tablet 1 10/06/2024 Active Active Problems No known active problems Encounters Date Type Department Care Team Description 09/13/2024 11:00 AM EST - 09/13/2024 12:51 PM EST Emergency [facility] Emergency [address] [place] [address] Hypokalemia (Primary Dx) Discharge Disposition: Home or Self Care from Last 3 Months Surgical History Surgery Date Site/Laterality Comments HERNIA REPAIR PROCEDURE: HISTORICAL HERNIA REPAIR/UMB; COMMENT: as Medical History Medical History Date Comments Diabetes (CMS/HCC) DX:Diabetes ( HCC) HTN (hypertension) DX:HTN (hyper tension) Hypercholesteremia DX:Hyperchole steremia Neuropathy DX:Neuropathy;CO MMENT:diabetic Migraine DX:Migraine Depression DX:Depression History of herniated interve rtebral disc DX:History of herniated intervertebral disc Degenerative disc disease, lumbar DX:Degenerative disc disease, lumbar Diabetic neuropathy (CMS/HCC) DX :Diabetic neuropathy (HCC) Chronic low back pain DX:Chronic low back pain Migraine DX:Migraine Gastroparesis DX:Gastroparesis Depression DX:Depression Anxiety DX:Anxiety Hyperlipidemia LDL goal <100 DX: Hyperlipidemia LDL goal <100 HTN (hypertension), benign DX:HT N (hypertension), benign Asthma DX:Asthma Chronic painful diabetic kapil ropathy (CMS/HCC) DX:Chronic painful diabetic neuropathy ([facility]) Gastroenteritis DX:Gastroenterit is Hx of hernia repair DX:Hx of her qing repair Obesity hypoventilation synd ike ([facility]) DX:Obesity hypoventilation s yndrome ([facility]) Obstructive sleep apnea DX:Obstr uctive sleep apnea Insomnia DX:Insomnia 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 ([facility]) DX:Controlled type 1 diabete s with neuropathy ([facility]) GERD (gastroesophageal reflux disease) DX:GERD (gastroesophageal reflux disease) Lower extremity edema DX:Lower e xtremity edema 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 DX:Type 1 diabetes mellitus with diabetic neuropathy ([facility]) Morbid obesity with BMI of 6 0.0-69.9, adult (CMS/HCC) 05/08/2021 DX:Morbid obesity with BMI o f 60.0-69.9, adult ([facility]) Charcot's joint of ankle, right 05/08/2021 DX:Charcot's joint of ankle, right Heart failure with preserved ejection fraction ([facility]) 02/22/2021 DX:Heart failure with preser thi ejection fraction ([facility]); COMMENT: Hospitalized [facility] 09/2020 for hypoxic hypercarbic resp failure. Syncope 02/23/2021 DX:Syncope Pain in joint involving ankle and foot 05/08/2021 DX:Pain in joint involving ankle and foot Family History Medical History Relation Name Comments Other: Diabetes mellitus type 1 Aunt No Known Problems Father Other: Diabetes mellitus type 2 Father Colon cancer Maternal Grandfather Other: Cardiovascular disease Maternal Grandmother No Known Problems Mother Other: Cardiovascular disease Mother Other: lupus Other cousin Other: Diabetes mellitus type 2 Sister Relation Name Status Comments Aunt Father Maternal Grandfather Maternal Grandmother Mother Other cousin Alive Sister Social History Tobacco Use Types Packs/Day Years Used Date Smoking Tobacco: Never Smokeless Tobacco: Never Alcohol Use Standard Drinks/Week Comments Never 0 (1 standard drink = 0.6 oz pur e alcohol) Sex and Gender Information Value Date Recorded Sex Assigned at Male 09/13/2024 12:24 PM EST Legal Sex Male 12:24 PM EST Gender Identity Male 09/13/2024 12:24 PM EST Sexual Orientation Straight 09/13/2024 12 :24 PM EST Obstetrics History Last Filed Vital Signs Vital Sign Reading Time Taken Comments Blood Pressure 142/99 09/13/2024 11:20 AM EST Pulse 73 09/13/2024 11:20 AM EST Temperature 36.3 ??C (97.3 ??F) 09/13/2024 11:[address] Respiratory Rate 25 09/13/2024 11:20 AM EST Oxygen Saturation 98% 09/13/2024 11:20 AM EST Inhaled Oxygen Concentration - - Weight 104 kg (230 lb) 09/13/2024 11:20 AM EST Height 182.9 cm (6') 09/13/2024 11:20 AM EST Body Mass Index 31.19 09/13/2024 11:20 AM EST Plan of Treatment Health Maintenance Due Date Last Done Comments Diabetes: Annual Foot Exam 1985 Diabetes: Annual Retina Eye Exam 1985 Hepatitis B Vaccines (1 of 3 - 19+ 3-dose series) 1994 DTaP,Tdap,and Td Vaccines (2 - Td or Tdap) 12/14/2017 12/15/2007 Colorectal Cancer Screening: Colonoscopy 08/03/2022 Depression Screening 08/03/2022 HIV Screening 08/03/2022 Hepatitis C Screening 08/03/2022 Medicare Annual Wellness Visit 08/03/2022 Social Influencers of Health Screening 08/03/2022 COVID-19 Vaccine ( season) 2024 09/05/2022, 02/23/2022, 08/03/2021, Additional history exists Influenza Vaccine (#1) 2024 , 05/01/2022, 06/26/2021, Additional history exists Diabetes: Blood Sugar Control Test (HGBA1C) 01/26/2025 07/28/2024 Diabetes: Annual Urine Albumin-Creatinine Ratio (uACR) 04/21/2025 04/21/2024, 10/20/2023 Pneumococcal Vaccine: Pediatrics (0 to 5 Years) and At-Risk Patients (6 to 64 Years) (3 of 3 - PCV20 or PCV21) 2025 06/21/2015, 08/27/2006, 10/28/2005 Diabetes: Annual GFR (Glomerular Filtration Rate) 09/13/2025 09/13/2024, 07/28/2024, 07/28/2024, Additional history exists Hypertension/CHF/CAD Annual BMP Blood Test 09/13/2025 09/13/2024, 07/28/2024, 07/28/2024, Additional history exists Cholesterol Screening (Lipid Panel) 07/28/2029 07/28/2024 HIB Vaccines Aged Out No longer eligi ble based on patient's age to complete this topic HPV Vaccines Aged Out No longer eligi ble based on patient's age to complete this topic Hepatitis A Vaccines Aged Out No long er eligible based on patient's age to complete this topic IPV Vaccines Aged Out No longer eligi ble based on patient's age to complete this topic MMR Vaccines Aged Out No longer eligi ble based on patient's age to complete this topic Meningococcal ACWY Vaccine Aged Out N o longer eligible based on patient's age to complete this topic Meningococcal B Vacine Aged Out No lo nger eligible based on patient's age to complete this topic RSV Immunization Patients Under 20 months Aged Out No longer eligible based on patient's age to complete this topic Varicella Vaccines Aged Out No longer eligible based on patient's age to complete this topic Procedures Procedure Name Priority Date/Time Associated Diagnosis Comments ECG 12-LEAD STAT 09/13/2024 11:24 AM EST CBC WITH AUTO DIFFERENTIAL STAT 09/13/2024 11:23 AM EST TROPONIN I HIGH SENSITIVITY STAT 09/13/2024 11:23 AM EST MAGNESIUM STAT 09/13/2024 11:23 AM EST BASIC METABOLIC PANEL STAT 09/13/2024 11:23 AM EST CBC AND DIFFERENTIAL STAT 09/13/2024 11:23 AM EST ECG ANNOTATED 09/13/2024 from Last 3 Months Results * ECG 12 lead (09/13/2024 11:24 AM EST) Ventricular Rate ECG 59 BPM GEMUSE Atrial Rate 59 BPM GEMUSE P-R Interval 158 ms GEMUSE QRS Duration 116 ms GEMUSE Q-T Interval 446 ms GEMUSE QTc 441 ms GEMUSE P Wave [place] -7 degrees GEMUSE R [place] -22 degrees GEMUSE T [place] -25 degrees GEMUSE ECG Interpretation Sinus bradycardia with occasional Premature ventricular complexes Nonspecific T wave abnormality Abnormal ECG When compared with ECG of 15-APR-2024 20:16, Nonspecific T wave abnormality, worse in Lateral leads Confirmed by Inessa VEE YUFENG ([id number]) on 09/13/2024 4:00:14 PM GEMUSE 09/13/2024 11:2 4 AM EST 09/13/2024 4:00 PM EST us Loni MCFADDEN ECG ORDERABLES Final Resu lt Performing Organization Address City/[facility]/ZIP Co de Phone Number GEMUSE * Troponin I high sensitivity (09/13/2024 11:23 AM EST) Pathologist [facility] High Sensitivity Troponin I 8 <=79 ng/L LAB CHEMISTRY METHOD 09/13/2024 11:59 AM EST [facility] Blood Venous blood specimen / Unknown Venipuncture / Unknown 09/13/2024 11:23 AM EST 09/13/2024 11:36 AM EST Narrative [facility] - 09/13/2024 11:59 AM EST High levels of biotin in samples may falsely decrease hsTroponin values. ??Use caution when interpreting hsTroponin results in patients taking biotin who exhibit renal impairment (eGFR <60) or in patients taking more than 20 mg/day of biotin. us Loni MCFADDEN LAB BLOOD ORDERABLES Final Result Performing Organization Address City/[facility]/ZIP Co de Phone Number [facility] [address] [place] [address], [place] [phone] * (ABNORMAL) CBC auto differential (09/13/2024 11:23 AM EST) [facility] WBC 14.8(H) 4.8 - 10.8 K/mcL LAB HEMETOLOGY METHOD 09/13/2024 11:43 AM [facility] RBC 4.60 4.50 - 5.50 M/mcL LAB HEMETOLOGY METHOD 09/13/2024 11:43 AM [facility] Hemoglobin 14.2 13.5 - 17.5 g/dL LAB HEMETOLOGY METHOD 09/13/2024 11:43 AM [facility] Hematocrit 41.9(L) 42.0 - 54.0 % LAB HEMETOLOGY METHOD 09/13/2024 11:43 AM [facility] MCV 90.7 79.0 - 98.0 FL LAB HEMETOLOGY METHOD 09/13/2024 11:43 AM [facility] MCH 30.7 27.0 - 32.0 pcg LAB HEMETOLOGY METHOD 09/13/2024 11:43 AM [facility] MCHC 33.9 32.0 - 37.0 g/dL LAB HEMETOLOGY METHOD 09/13/2024 11:43 AM [facility] RDW 13.3 11.0 - 15.0 % LAB HEMETOLOGY METHOD 09/13/2024 11:43 AM [facility] Platelets 191 130 - 400 K/mcL LAB HEMETOLOGY METHOD 09/13/2024 11:43 AM [facility] MPV 9.8 7.0 - 11.0 FL LAB HEMETOLOGY METHOD 09/13/2024 11:43 AM [facility] NRBC 0.0 <1.0 % LAB HEMETOLOGY METHOD 09/13/2024 11:43 AM [facility] NRBC Absolute 0.00 <0.10 K/mcL LAB HEMETOLOGY METHOD 09/13/2024 11:43 AM [facility] Neutrophils Relative 81.6 % LAB HEMETOLOGY METHOD 09/13/2024 11:43 AM [facility] Lymphocytes Relative 10.7 % LAB HEMETOLOGY METHOD 09/13/2024 11:43 AM [facility] Monocytes Relative 6.6 % LAB HEMETOLOGY METHOD 09/13/2024 11:43 AM [facility] Eosinophils Relative 0.3 % LAB HEMETOLOGY METHOD 09/13/2024 11:43 AM [facility] Basophils Relative 0.2 % LAB HEMETOLOGY METHOD 09/13/2024 11:43 AM [facility] Immature Granulocytes Relative 0.6 % LAB HEMETOLOGY METHOD 09/13/2024 11:43 AM [facility] Neutrophils Absolute 12.02(H) 1.50 - 7.00 K/mcL LAB HEMETOLOGY METHOD 09/13/2024 11:43 AM [facility] Lymphocytes Absolute 1.58 1.00 - 5.00 K/mcL LAB HEMETOLOGY METHOD 09/13/2024 11:43 AM [facility] Monocytes Absolute 0.98 0.20 - 1.00 K/mcL LAB HEMETOLOGY METHOD 09/13/2024 11:43 AM [facility] Eosinophils Absolute 0.05 0.00 - 0.50 K/mcL LAB HEMETOLOGY METHOD 09/13/2024 11:43 AM [facility] Basophils Absolute 0.03 0.00 - 0.20 K/mcL LAB HEMETOLOGY METHOD 09/13/2024 11:43 AM [facility] Immature Granulocytes Absolute 0.09(H) 0.00 - 0.03 K/mcL LAB HEMETOLOGY METHOD 09/13/2024 11:43 AM [facility] Blood Venous blood specimen / Unknown Venipuncture / Unknown 09/13/2024 11:23 AM EST 09/13/2024 11:36 AM EST Loni MCFADDEN LAB BLOOD ORDERABLES Final Result [facility] [address] [place] [address], [place] [phone] * Magnesium (09/13/2024 11:23 AM EST) Magnesium 2.0 1.9 - 2.6 mg/dL LAB CHEMISTRY METHOD 09/13/2024 12:02 PM [facility] Blood Venous blood specimen / Unknown Venipuncture / Unknown 09/13/2024 11:23 AM EST 09/13/2024 11:36 AM EST Loni MCFADDEN LAB BLOOD ORDERABLES Final Result Performing Organization Address City/[facility]/ZIP Co de Phone Number [facility] [address] [place] [address], [place] [phone] * (ABNORMAL) Basic metabolic panel (09/13/2024 11:23 AM EST) Sodium 134 133 - 145 mmol/L LAB CHEMISTRY METHOD 09/13/2024 12:02 PM [facility] Potassium 3.3(L) 3.5 - 5.5 mmol/L LAB CHEMISTRY METHOD 09/13/2024 12:02 PM [facility] Chloride 98 96 - 110 mmol/L LAB CHEMISTRY METHOD 09/13/2024 12:02 PM [facility] CO2 29 21 - 32 mmol/L LAB CHEMISTRY METHOD 09/13/2024 12:02 PM [facility] Anion Gap 7 3 - 11 LAB CHEMISTRY METHOD 09/13/2024 12:02 PM [facility] Glucose 103(H) 70 - 100 mg/dL LAB CHEMISTRY METHOD 09/13/2024 12:02 PM EST [facility] BUN 17 5 - 25 mg/dL LAB CHEMISTRY METHOD 09/13/2024 12:02 PM [facility] Creatinine 1.05 0.70 - 1.30 mg/dL LAB CHEMISTRY METHOD 09/13/2024 12:02 PM [facility] eGFR 87 >=60 mL/min/1. 73m2 LAB CHEMISTRY METHOD 09/13/2024 12:02 PM [facility] Comment:Calculation based on the??Chronic Kidney Disease Epidemiology Collaboration (CKD-EPI) equation refit??without adjustment for race. BUN/Creatinine Ratio 16.2 LAB CHEMISTRY METHOD 09/13/2024 12:02 PM [facility] Calcium 8.6 8.5 - 10.5 mg/dL LAB CHEMISTRY METHOD 09/13/2024 12:02 PM [facility] Blood Venous blood specimen / Unknown Venipuncture / Unknown 09/13/2024 11:23 AM EST 09/13/2024 11:36 AM EST Loni MCFADDEN LAB BLOOD ORDERABLES Final Result [facility] [address] [place] [address], * ECG-Annotated (09/13/2024) us Provider Onbase MD ECG ORDERABLES Final Result from Last 3 Months Insurance MEDICARE MEDICAID - [place] Care Teams Gold Leaf Laborer Relationship Specialty Start Date End Date Doretha Avilez MD [address] [place] [id number] PCP - General 11/20/22
--- OUTSIDE RECORDS SUMMARY | 2024-11-18 14:11 | XMS_ITS | Clinical Summary ---
Author Organization [facility] Address [address] [address] Phone Care Team Providers Care Optical Advisor Name Role Phone Doretha Pablo MD Primary Care Provider [phone] Allergies Active Allergy Reactions Criticality Noted Date Comments Bupropion Other (see comments) 12/19/2013 Other reaction(s): Other (See Comments) suicidal Codeine 03/12/2022 Patient has tolerated Fentanyl and Morphine in the past. Ibuprofen Anaphylaxis,Other (see comments) High 12/19/2013 Ketorolac Tromethamine Anaphylaxis High 12/19/2013 Nsaids 03/12/2022 Prochlorperazine Other (see comments) High 4 dystonic Sumatriptan Palpitations Low 12/19/2013 Tramadol 09/10/2015 Bupropion Hcl 04/06/2021 Medications pregabalin (LYRICA) 150 MG capsule Take 150 mg by mouth 3 times a day Active Blood Pressure kit 1 (one) time each day 1 Active FeroSul 325 (65 Fe) MG tablet Take 1 tablet by mouth 1 (one) time each day 1 Active prednisoLONE acetate (PRED FORTE) 1 % ophthalmic suspension SHAKE LIQUID AND INSTILL 1 DROP IN BOTH EYES TWICE DAILY DIRECTED 1 Active potassium chloride (KLOR-CON M20) 20 MEQ CR tablet 2 (two) times a day 1 Active NovoLOG FLEXPEN 100 UNIT/ML injection 1 Active celecoxib (CeleBREX) 200 MG capsule 2 Active rosuvastatin (CRESTOR) 40 MG tablet 2 Active mesalamine (CANASA) 1000 MG suppository 2 Active erythromycin base (E-MYCIN) 250 MG tablet 2 Active Ventolin HFA 108 (90 Base) MCG/ACT inhaler 3 Active Gvoke HypoPen 1-Pack 1 MG/0.2ML solution auto-injector 3 Active Insulin Lispro 100 UNIT/ML solution 3 Active furosemide (LASIX) 20 MG tablet Take 1 tablet (20 mg total) by mouth 1 (one) time each day 90 tablet 3 4 Active metoprolol succinate XL (TOPROL XL) 25 MG 24 hr tablet Take 25 mg by mouth 1 (one) time each day Active Empagliflozin 10 MG tablet Take 10 mg by mouth 1 (one) time each day 4 Active Entresto 24-26 MG per tablet Take 1 tablet by mouth 4 Active Active Problems Problem Noted Date Diagnosed Date Asthma 03/12/2022 Depressive disorder 03/12/2022 Gastroenteritis 03/12/2022 Heart failure with normal ejection fraction 02/22 Hernia repair 03/12/2022 Insomnia 03/12/2022 Gastro-esophageal reflux disease without esophag itis 05/03/2021 Extreme obesity with alveolar hypoventilation Hypertension 03/23/2021 Hypokalemia 03/23/2021 Chronic painful neuropathy due to diabetes melli tus 03/23/2021 Obstructive sleep apnea 03/23/2021 Type 1 diabetes mellitus 03/23/2021 Resolved Problems Problem Noted Date Diagnosed Date Resolved Date Anxiety 03/23/2021 03/23/2021 Arthralgia of the ankle and/or foot 03/23/2021 03/23/2021 Chronic pain 03/23/2021 03/23/2021 Diastolic dysfunction 03/23/20212020 Hyperlipidemia 03/23/2021 03/23/2021 Encounters Date Type Department Care Team Description 08/28/2024 Orders Only [facility] [address] [place] [phone] Romario Gifford MD Metabolic alkalosis 08/23/2024 1:15 PM EST Office Visit [facility] [address] [facility] [address] [place] [phone] Romario Gifford MD Metabolic alkalosis (Primary Dx); Hypokalemia; Heart failure with reduced ejection fraction (HCC) from Last 3 Months Immunizations Name Administration Dates Next Due Influenza Whole 06/23/2007,06/20/2006 Influenza, Unspecified 06/07/2008 Pneumococcal Polysaccharide 08/27/2006, 6 Tdap 12/15/2007 Family History Medical History Relation Comments Cancer Brother Diabetes Father Cancer Maternal Grandfather Stroke Paternal Grandfather Hypertension Paternal Grandmother Relation Status Comments Brother Father Maternal Grandfather Paternal Grandfather Paternal Grandmother Social History Tobacco Use Types Packs/Day Years Used Date Smoking Tobacco: Never Smokeless Tobacco: Never Tobacco Cessation:Counseling Given: No Alcohol Use Standard Drinks/Week Comments Never 0 (1 standard drink = 0.6 oz pur e alcohol) Sex and Gender Information Value Date Recorded Sex Assigned at Not on file Legal Sex Male 10:44 AM EDT Gender Identity Not on file Sexual Orientation Not on file Last Filed Vital Signs Vital Sign Reading Time Taken Comments Blood Pressure 132/80 08/23/2024 1:36 PM EST Pulse 78 08/23/2024 1:36 PM EST Temperature - - Respiratory Rate - - Oxygen Saturation 98% 08/28/2023 3:48 PM EST Inhaled Oxygen Concentration - - Weight 110 kg (243 lb) 08/23/2024 1:36 PM EST Height 182.9 cm (6') 03/26/2021 3:55 PM EDT Body Mass Index 32.96 03/26/2021 3:55 PM EDT Plan of Treatment Upcoming Encounters Date Type Department Care Team (Late st Contact Info) Description 08/08/2025 2:15 PM EST Office Visit [facility] [address] [address] Romario Gifford MD [address] [phone] Health Maintenance Due Date Last Done Comments Hepatitis B Vaccine (1 of 3 - 19+ 3-dose series) 1994 Diabetes: Ophthalmology Exam 09/18/2021 Diabetes: Pedal Pulse Checked 09/18/2021 Diabetes: Sensory Foot Exam 09/18/2021 Diabetes: Visual Foot Exam 09/18/2021 Influenza Vaccine (#1) 2024 2, 06/07/2008, 06/23/2007, Additional history exists Colorectal Cancer Screening: Annual FOBT 2024 Colorectal Cancer Screening: Colonoscopy 2024 Colorectal Cancer Screening: Sigmoidoscopy 2024 Diabetes: Hemoglobin A1C 10/26/2024 07/28/2024 Pneumococcal Vaccine: Pediat rics (0 to 5 Years) and At-Risk Patients (6 to 64 Years) (4 of 4 - PPSV23 or PCV20) 2040 06/21/2015, 08/27/2006, 10/28/2005 Insurance [place]ID [place] MED[place] Care Teams Optical Advisor Relationship Specialty Start Date End Date Doretha Pablo MD [address] [place], [place] [address]dana Negron, [address] [place] [address] PCP - General Internal Medicine 08/28/23
--- OUTSIDE RECORDS SUMMARY | 2024-11-18 14:11 | XMS_ITS | Continuity of Care Document ---
Author Organization [facility] Address [address] [place] [address]- Care Team Providers Care Airplane Rental Clerk Name Role Phone Raghav CARDENAS, Doretha Pierre Primary Care Physician [phone] Encounter [facility] [place] Date(s): 10/05/24 - 11/04/24 [facility] [address] [place] [id number] Encounter Type: Triage Allergies, Adverse Reactions, Alerts Substance Criticality Severity Reaction Reaction Severity Status codeine 1 terrible itching A ctive Tylenol affects Blood s ugar reading r/t being a diabetic. Active NSAIDs can't take-micah mful to my kidneys Active Toradol can't take-micah mful to my kidneys Active Compazine severe muscle spasm Active Motrin can't take- nuñez rmful to my kidneys Active Imitrex unknown reaction A ctive Wellbutrin suicidal Active 1Patient has tolerated Fentanyl and Morphine [...] influenza virus vaccine, inactivated 06/07/08 Give n [id number] 12y+ bivalent booster vax 09/05/22 Recorded SARS-CoV-2 mRNA ([id number]) vax 02/23/22 Recorded SARS-CoV-2 (COVID-19) mRNA BNT-162b2 [...] Given 1Admin Note: SANOFI PASTEUR 2Result Comment: [id number] and expiration 1175F, [id number] 3Result Comment: Lot # [id number] Exp January 21, 2007 Medications Admelog 100 units/mL injectable solution See Instructions, USE TO INFUSE INSULIN CONTINUOUSLY; MAX DAILY DOSE OF 120 UNITS, # 110 mL, 3 Refills, Maintenance, 08/26/24 3:45:00 PM EST, [facility], 183, cm, 08/26/24 14:02:00 [...] Maintenance, 06/06/20 1:49:00 PM EDT, [facility]ation Solution, [id number], 3 mL Neb 4 times a day,x30 [...] 1 Basaglar KwikPen 100 units/mL subcutaneous solution See Instructions, INJECT 60 UNITS SUBCUTANEOUS INFUSION DAILY. USE IN CASE OF PUMP FAILURE TO INJECT 60 UNITS DAILY, # 15 mL, 11 Refills, Maintenance, 10/27/24 9:36:00 AM EST, [facility], 183, cm, 10/21/24 10:59:00 EST, Height, 110.6, kg, 08/26/24 14:02:00 EST, Dry Weight Start Date: 10/27/24 Status: Ordered Quantity: 15.0 Unit: mL Repeat number: 1 CeleBREX 200 mg oral capsule 1 capsule [...] 0 Refills, Maintenance, 09/08/24 10:09:00 AM EST, [facility], 183, cm, 08/26/24 14:02:00 [...] 5 Refills, Maintenance, 05/14/24 6:19:00 AM EDT, [facility], 184, cm, 04/22/24 13:48:00 [...] 1 Refills, Maintenance, 01/21/24 11:49:00 AM EDT, [facility], 22, APPLY TOPICALLY THREE [...] 09/30/24 Status: Ordered Repeat number: 1 Pen [place], 31 G x 5 mm BD Ultra [...] Personnel Name: Zofia RN, Natalie Barone Position: [facility] RN Member Role: Primary Care Nurse Name: Yoana Bullock RN Position: [facility] ED RN W/OE and Tasks Member Role: Primary Care Nurse Name: Laura Lamb RN Position: [facility] SN RN Member Role: Primary Care Nurse Name: Loly Arenas NP Position: [facility] Outreach Member Role: Primary Care Nurse Address: [address] [place] [address]- [place] Telecom: Name: Gabriele Gifford MD Position: [facility] Renal MD Member Role: Lifetime Consulting Physician Address: [address] [facility] [address] [facility] [place] [address]- [place] Telecom: Name: Doretha Avilez MD Position: [facility] Physician - Primary Care Member Role: PCP Address: [address] [place] [address] [place] [address]- Telecom: Name: Mary Solis RN Position: [facility] OB RN Member Role: Primary Care Nurse Name: Kristina Parker RN Position: [facility] RN Member Role: Primary Care Nurse Name: Mir Parada Position: [facility] Outreach Member Role: Lifetime Consulting Physician Name: Miguel Beltran RN Position: [facility] RN Member Role: Primary Care Nurse Name: Barbara Blanca RN Position: [facility] RN Member Role: Primary Care Nurse Care Team Related Persons Name: MARIAH SAUCEDO Name: MARIAH PAT Name: MÓNICA JASSO Insurance Providers Guarantor name: CHRISTOFER HAGERGER Health Plan Information #: 1 Payer: MEDICARE PART B OUTPT Member Number: NA Policy Number: NA Group Number: NA Health Plan Information #: 2 Payer: [facility] Member Number: NA Policy Number: NA Group Number: NA
== END 2024-11-18 11:50 | disposition home or self-care (01) ==
LOC: HO.RHE 10:45
PROVIDERS: PCP Internal Medicine; Visit Provider Student in an Organized Health Care Education/Training Program
DX: M19.071 Primary osteoarthritis, right ankle and foot (principal); M19.072 Primary osteoarthritis, left ankle and foot; Z79.1 Long term (current) use of non-steroidal anti-inflammatories (NSAID)
CPT/HCPCS: 99213; G2211

== ENCOUNTER → 2024-11-18 10:44 | Outpatient (BNVA) | payer MEDICARE, MEDICAID, SELFPAY | PROVIDERS: PCP Internal Medicine; Visit Provider Student in an Organized Health Care Education/Training Program | DX: M19.071 Primary osteoarthritis, right ankle and foot (principal); M19.072 Primary osteoarthritis, left ankle and foot; Z79.1 Long term (current) use of non-steroidal anti-inflammatories (NSAID) | CPT/HCPCS: 99212 ==

== ENCOUNTER 2024-12-06 11:24 | Outpatient (AMB) | payer MEDICARE, MEDICAID, SELFPAY ==
--- NOTE | 2024-12-06 11:27 | MHC.OFFVIS ---
Vital Signs 12/06/24 11:29 Height 6 ft Weight 237 lb BMI 32.1 Intake Visit Reasons: Inj-Right ankle inj-last injection-09/01/2024 Intake Note: Shubham is a 48 year old male who presents today for his right ankle injection, last injection was on 09/01/24. Patient reports injection provided him with relief and would like to repeat injection today. Allergies codeine Allergy (Unknown, Verified 12/06/24 11:34) itching ibuprofen [IBUPROFEN] Allergy (Unknown, Verified 12/06/24 11:34) HIVES ketorolac Allergy (Unknown, Verified 12/06/24 11:34) swelling sumatriptan [From IMITREX] Allergy (Unknown, Verified 12/06/24 11:34) TACHYCARDIA bupropion [From Wellbutrin] Adverse Reaction (Severe, Verified 12/06/24 11:34) suicide thoughts prochlorperazine [From Compazine] Adverse Reaction (Unknown, Verified 12/06/24 11:34) Unknown HPI HPI Inj-Right ankle inj-last injection-09/01/2024: Details: 48-year-old gentleman returns to the office today for right ankle pain. Injection was successful however the last several weeks he has developed worsening pain. 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 of non-steroidal anti-inflammatories (nsaid) Obesity (BMI 35.0-39.9 without comorbidity) Bronchitis COPD (chronic obstructive pulmonary disease) Restrictive lung disease SABRINA (obstructive sleep apnea) Morbid obesity Social History Household Members: Significant Other Housing: House Alcohol intake: never Patient Tobacco Use Status: Never used Tobacco Current occupational status: disabled Current occupation: Lt handed Review of Systems Const All systems reviewed & are unremarkable except as noted in HPI and below Physical Exam Vital Signs: BMI result Body Mass Index 32.1 Extrem Other: Right ankle normal to inspection.? Significant tenderness over the medial and lateral joint of the ankle No tenderness over the syndesmosis. No significant swelling. No ankle instability. NVI .? Limited range of motion Office Procedures AMB Joint Injection/Aspiration Joint Injection/Aspiration Primary Site: right ankle Prep: site was prepped using aseptic technique, ethochloride spray was applied and injection warnings given Injected: 80 mg of, DepoMedrol, with 1 mL of and 1% plain lidocaine Procedure: The patient tolerated the procedure well and there was some relief with the local anesthesia Coding 15829 - Medium joint Procedure code (CPT) selection complete Assessment & Plan Assessment & Plan (1) Osteoarthritis of ankle, right: Code(s): M19.071 - Primary osteoarthritis, right ankle and foot Category: Medical Qualifiers: Osteoarthritis type: primary Qualified Code(s): M19.071 - Primary osteoarthritis, right ankle and foot Plan We discussed options today, which include steroid injection. The patient did consent to move forward with the right ankle injection, which was tolerated well. I recommended rest, ice, and elevation and OTC anti-inflammatories as needed for discomfort. We also discussed diabetes and the effect the steroid injection can have on their blood glucose levels; therefore, they will continue to monitor these very closely over the next 72 hours. If there are concerns, they should report to the ED immediately. Coding Level of Care Code Est Pt Level 3 (83814) Complex EM visit Add On G2211 Diagnoses Primary osteoarthritis of right ankle M19.071 Osteoarthritis type: primary CPT Codes Coding - 11733 Medium joint: 80497 - Medium joint ([id number])
[2024-12-06 11:29] VITALS: BMI 32.1
--- OUTSIDE RECORDS SUMMARY | 2024-12-06 13:26 | XMS_ITS | Data Portability ---
Author Organization [facility] [employer], svmg_admin Address [address] [place] [id number] Care Team Providers Care Compressor Repairer Name Role Phone IDALIA LEUNG Primary Care Provider SHUBHAM PINEDA Certified Mortician LAVERNE TRINH Certified Mortician ODALIS BELLO Senior It Project Manager Assessment Encounter Date Assessment Date Assessment LastModified by Organization Details LastModified Time 07/12/2024 07/12/2024 Shubham is presenting for a [...] a small fixed apical defect most likely employment representative of apical thinning. His cardiac MRI [...] 09/13 for which he was seen in [facility] emergency room. He states prior to [...] for his cardiomyopathy. 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 Shubham is [...] a pleasure seeing patients along with you. [email or web address] Not available 11/05/2024 17:20:18 11/24/2024 11/24/2024 Shubham is presenting for a follow up appointment. Shubham is doing well from a cardiology perspective. There is no evidence of decompensated heart failure, chest pain suggestive of recurrent angina, or arrhythmia. His blood pressure is under better control at home and has been ranging from 120-140s systolic. We discussed his echocardiogram which revealed an improved LVEF of 60%, mild concentric LVH, no regional wall motion abnormalities, trace MR, trace TR, trace ND, stable mildly dilated ascending aorta at 4.0 cm, and no pericardial effusion. His recent BMP was stable. I have asked him to have an updated set of labs prior to his next appointment. I have asked him to continue his current medication regiment at this time. Shubham had been asked to have a 30 day monitor to assess for possible arrhythmia induced syncope. He was unfortunately allergic to the adhesive and could not tolerate this from more than a few days. We briefly discussed an implantable loop monitor and he is not interested in this option at this time. We will see him back in office in 3-4 months with labs. As always, it is a pleasure seeing patients along with you. Not available 11/24/2024 14:23:27 Plan of Treatment Reminders Order Date Submit Date Provider Last Modified By Organization Details Last Modified Time Details Appointments Any 15 2024 02:30P M Shubham Pineda MD Not available Not available Not available Lab lipid panel, serum 2024 025 [facility] (Centralized Electronic Ordering - All Locations), Patient Can Go To The Location Of Their Choice, 11/24/2024 13:15:05 AST/SGOT (aspartat e aminotran sferase), serum or plasma 2024 025 [facility] (Centralized Electronic Ordering - All Locations), Patient Can Go To The Location Of Their Choice, 11/24/2024 13:15:04 ALT (alanine aminotran sferase), serum or plasma 2024 025 [facility] (Centralized Electronic Ordering - All Locations), Patient Can Go To The Location Of Their Choice, 11/24/2024 13:15:05 CK (creatine kinase), total, serum 2024 025 [facility] (Centralized Electronic Ordering - All Locations), Patient Can Go To The Location Of Their Choice, 11/24/2024 13:15:06 BMP, serum or plasma 2024 025 [facility] (Centralized Electronic Ordering - All Locations), Patient Can Go To The Location Of Their Choice, 11/24/2024 13:15:06 BMP, serum or plasma 2024 025 [facility] (Centralized Electronic Ordering - All Locations), Patient Can Go To The Location Of Their Choice, 11/20/2024 00:05:15 lipid panel, serum 2024 025 [facility] (Centralized Electronic Ordering - All Locations), Patient Can Go To The Location Of Their Choice, 11/04/2024 13:05:19 AST/SGOT (aspartat e aminotran sferase), serum or plasma 2024 025 [facility] (Centralized Electronic Ordering - All Locations), Patient Can Go To The Location Of Their Choice, 11/04/2024 13:05:21 ALT (alanine aminotran sferase), serum or plasma 2024 025 [facility] (Centralized Electronic Ordering - All Locations), Patient Can Go To The Location Of Their Choice, 11/04/2024 13:05:21 CK (creatine kinase), total, serum 2024 025 [facility] (Centralized [...] The Location Of Their Choice, 09/23/2024 08:08:21 AST/SGOT (aspartat e aminotran sferase), serum or plasma 2024 025 [facility] (Centralized Electronic Ordering - All Locations), Patient Can Go To The Location Of Their Choice, 09/23/2024 08:08:22 ALT (alanine aminotran sferase), serum or plasma 2024 025 [facility] (Centralized Electronic Ordering - All Locations), Patient Can Go To The Location Of Their Choice, 09/23/2024 08:08:23 CK (creatine kinase), total, serum 2024 025 [facility] (Centralized Electronic Ordering - All Locations), Patient Can Go To The Location Of Their Choice, 09/23/2024 08:08:22 BMP, serum or plasma 2024 025 [facility] (Centralized Electronic Ordering - All Locations), Patient Can Go To The Location Of Their Choice, 09/23/2024 08:08:21 BMP, serum or plasma 2023 024 [facility] (Centralized Electronic Ordering - All Locations), Patient Can Go To The Location Of Their Choice, 07/22/2024 08:08:19 pro BNP (pro B-type natriuret ic peptide), serum or plasma 2023 024 [facility] (Centralized Electronic Ordering - All Locations), Patient Can Go To The Location Of Their Choice, 07/22/2024 08:08:19 Referral None recorded. Procedures None recorded. Surgeries None recorded. Imaging electroca rdiogram 2024 025 THIERRY In-Office Order, Internal Use Only DO Not Attach Compendium DO Not Attach Compendium, Do Not Delete/merge, [id number] 11/24/2024 13:27:41 electroca rdiogram 2024 025 [email or web address] In-Office Order, Internal Use Only DO Not Attach Compendium DO Not Attach Compendium, Do Not Delete/merge, [id number] 11/05/2024 15:32:06 US, echocardi ogram, transthor acic, complete, w/ color flow - 2D Color-kyra w and Doppler with contrast if clinicall y indicated according to protocol WITH CONTRAST* * 2024 025 [facility] ([facility]), [address] [place] [address], [id number], 11/10/2024 08:58:10 child monitor 2024 025 [facility] ([facility]), [address] [place] [address], [id number], 12/03/2024 08:38:22 electroca rdiogram 2024 025 [place] In-Office Order, Internal Use Only DO Not Attach Compendium DO Not Attach Compendium, Do Not Delete/merge, [id number] 09/16/2024 16:49:24 Medication Orders losartan 50 mg tablet 2024 025 [facility], [address] [place] [address], [id number], 11/08/2024 13:42:20 spironola ctone 50 mg tablet 2024 025 [facility], [address] [place] [address], [id number], 11/08/2024 13:41:44 metoprolo l succinate ER 25 mg tablet,ex tended release 24 hr 2024 025 [facility], [address] [place] [address], [id number], 12/06/2024 10:43:52 losartan 25 mg tablet [email or web address], [address] [place] [address], [id number], 11/04/2024 10:08:38 Entresto 24 mg-26 mg tablet [email or web address], [address] [place] [address], [address], 10/19/2024 10:33:39 Jardiance 10 mg tablet 2023 Devi [email or web address] [facility], [address] [place] [address], [address], 10/25/2024 12:35:57 Patient TargetsNo targets recorded. Patient InstructionsNo instructions recorded. Reason for Referral None Reported. Results Created Date Observation Date Name Description Value Unit Range Abnormal Flag Note LastModifiedBy Organization Detail LastModifiedTime 07/21/2007/21/2024 CHOL+ TRIG+ HDL+L DL-D cholesterol, total 98 mg/dL 100-19 9 below low normal Not Available [facility] ([facility]) [address] [facility], [place], [address], 07/22/2024 08:08:13 07/21/2007/21/2024 CHOL+ TRIG+ HDL+L DL-D triglyceride s 68 mg/dL 0-149 normal Not Available [facility] ([facility]) [address] [place], [address], 07/22/2024 08:08:13 07/21/2007/21/2024 CHOL+ TRIG+ HDL+L DL-D HDL cholesterol 35 mg/dL >39 below low normal Not Available [facility] ([facility]) [address] [place], [address], 07/22/2024 08:08:13 07/21/2007/22/2024 CHOL+ TRIG+ HDL+L DL-D LDL chol. (direct) 48 mg/dL 0-99 Not Available [facility] ([facility]) [address] [facility], [place], [address], 07/22/2024 08:08:13 07/21/20 24 07/22/2024 CHOL+ TRIG+ HDL+L DL-D LDL direct comment: TELECOMMUNICATIONS CONSULTANT Not Available [facility] ([facility]) [address] [facility] [place], [address], 07/22/2024 08:08:13 07/21/2007/21/2024 BASIC METAB OLIC PANEL (8) glucose 49 mg/dL 70-99 below low normal Not Available [facility] ([facility]) [address] [facility] [place], [address], 07/22/2024 08:08:14 07/21/2007/21/2024 BASIC METAB OLIC PANEL (8) BUN 16 mg/dL 6-24 normal Not Available [facility] ([facility]) [address] [facility] [place], [address], 07/22/2024 08:08:14 07/21/2007/21/2024 BASIC METAB OLIC PANEL (8) creatinine 1.03 mg/dL 0.76-1 .27 normal Not Available [facility] ([facility]) [address] [facility] [place], [address], 07/22/2024 08:08:14 07/21/2007/21/2024 BASIC METAB OLIC PANEL (8) eGFR 90 mL/mi n/1.7 3 >59 normal Not Available [facility] ([facility]) [address] [facility] [place], [address], 07/22/2024 08:08:14 07/21/2007/21/2024 BASIC METAB OLIC PANEL (8) BUN/creatini ne ratio 16 9-20 normal Not Available [facility] ([facility]) [address] [facility] [place], [address], 07/22/2024 08:08:14 07/21/2007/21/2024 BASIC METAB OLIC PANEL (8) sodium 140 mmol/ L 134-14 4 normal Not Available [facility] ([facility]) [address] [facility] [place], [address], 07/22/2024 08:08:14 07/21/20 24 07/21/2024 BASIC METAB OLIC PANEL (8) potassium 4.1 mmol/ L 3.5-5. 2 normal Not Available [facility] ([facility]) [address] [place], [address], 07/22/2024 08:08:14 07/21/20 24 07/21/2024 BASIC METAB OLIC PANEL (8) chloride 101 mmol/ L 96-106 normal Not Available [facility] ([facility]) [address] [place], [address], 07/22/2024 08:08:14 07/21/2007/21/2024 BASIC METAB OLIC PANEL (8) carbon dioxide, total 28 mmol/ L 20-29 normal Not Available [facility] ([facility]) [address] [place], [address], 07/22/2024 08:08:14 07/21/20 24 07/21/2024 BASIC METAB OLIC PANEL (8) calcium 9.4 mg/dL 8.7-10 .2 normal Not Available [facility] ([facility]) [address] [place], [address], 07/22/2024 08:08:14 07/21/20 24 07/22/2024 CK creatine kinase,total 335 U/L 49-439 normal Not Available [facility] ([facility]) [address] [place], [address], 07/22/2024 08:08:14 07/21/20 24 07/21/2024 AST (SGOT ) AST (SGOT) 27 IU/L 0-40 normal Not Available [facility] ([facility]) [address] [place], [address], 07/22/2024 08:08:15 07/21/20 24 07/21/2024 ALT (SGPT ) ALT (SGPT) 24 IU/L 0-44 normal Not Available [facility] ([facility]) [address] [facility] [place], [address], 07/22/2024 08:08:15 07/21/2007/22/2024 BASIC METAB OLIC PANEL (8) glucose 48 mg/dL 70-99 below low normal Not Available [facility] ([facility]) [address] [facility] [place], [address], 07/22/2024 08:08:19 07/21/20 24 07/22/2024 BASIC METAB OLIC PANEL (8) BUN 16 mg/dL 6-24 normal Not Available [facility] ([facility]) [address] [facility] [place], [address], 07/22/2024 08:08:19 07/21/20 24 07/22/2024 BASIC METAB OLIC PANEL (8) creatinine 0.97 mg/dL 0.76-1 .27 normal Not Available [facility] ([facility]) [address] [facility] [place], [address], 07/22/2024 08:08:19 07/21/2007/22/2024 BASIC METAB OLIC PANEL (8) eGFR 96 mL/mi n/1.7 3 >59 normal Not Available [facility] ([facility]) [address] [facility] [place], [address], 07/22/2024 08:08:19 07/21/2007/22/2024 BASIC METAB OLIC PANEL (8) BUN/creatini ne ratio 16 9-20 normal Not Available [facility] ([facility]) [address] [facility] [place], [address], 07/22/2024 08:08:19 07/21/20 24 07/22/2024 BASIC METAB OLIC PANEL (8) sodium 141 mmol/ L 134-14 4 normal Not Available [facility] ([facility]) [address] [facility] [place], [address], 07/22/2024 08:08:19 07/21/20 24 07/22/2024 BASIC METAB OLIC PANEL (8) potassium 4.1 mmol/ L 3.5-5. 2 normal Not Available [facility] ([facility]) [address] [place], [address], 07/22/2024 08:08:19 07/21/20 24 07/22/2024 BASIC METAB OLIC PANEL (8) chloride 101 mmol/ L 96-106 normal Not Available [facility] ([facility]) [address] [facility] [place], [address], 07/22/2024 08:08:19 07/21/2007/22/2024 BASIC METAB OLIC PANEL (8) carbon dioxide, total 26 mmol/ L 20-29 normal Not Available [facility] ([facility]) [address] [place], [address], 07/22/2024 08:08:19 07/21/20 24 07/22/2024 BASIC METAB OLIC PANEL (8) calcium 9.6 mg/dL 8.7-10 .2 normal Not Available [facility] ([facility]) [address] [place], [address], 07/22/2024 08:08:19 07/21/20 24 07/22/2024 NT-ND OBNP nt-probnp <36 pg/mL 0-121 The follo [...] enden t 300 pg/mL Not Available [facility] ([facility]) [address] [facility] [place], [address], 07/22/2024 08:08:19 08/17/20 24 08/17/2024 BASIC METAB OLIC PANEL (8) glucose 55 mg/dL 70-99 below low normal Not Available [facility] ([facility]) [address] [facility] [place], [address], 08/17/2024 23:05:20 08/17/20 24 08/17/2024 BASIC METAB OLIC PANEL (8) BUN 16 mg/dL 6-24 normal Not Available [facility] ([facility]) [address] [facility] [place], [address], 08/17/2024 23:05:20 08/17/20 24 08/17/2024 BASIC METAB OLIC PANEL (8) creatinine 1.07 mg/dL 0.76-1 .27 normal Not Available [facility] ([facility]) [address] [facility] [place], [address], 08/17/2024 23:05:20 08/17/20 24 08/17/2024 BASIC METAB OLIC PANEL (8) eGFR 86 mL/mi n/1.7 3 >59 normal Not Available [facility] ([facility]) [address] [facility] [place], [address], 08/17/2024 23:05:20 08/17/20 24 08/17/2024 BASIC METAB OLIC PANEL (8) BUN/creatini ne ratio 15 9-20 normal Not Available [facility] ([facility]) [address] [facility] [place], [address], 08/17/2024 23:05:20 08/17/20 24 08/17/2024 BASIC METAB OLIC PANEL (8) sodium 139 mmol/ L 134-14 4 normal Not Available [facility] ([facility]) [address] [place], [address], 08/17/2024 23:05:20 08/17/20 24 08/17/2024 BASIC METAB OLIC PANEL (8) potassium 4.7 mmol/ L 3.5-5. 2 normal Not Available [facility] ([facility]) [address] [facility] [place], [address], 08/17/2024 23:05:20 08/17/20 24 08/17/2024 BASIC METAB OLIC PANEL (8) chloride 100 mmol/ L 96-106 normal Not Available [facility] ([facility]) [address] [facility], [place], [address], 08/17/2024 23:05:20 08/17/20 24 08/17/2024 BASIC METAB OLIC PANEL (8) carbon dioxide, total 30 mmol/ L 20-29 above high normal Not Available [facility] ([facility]) [address] [facility] [place], [address], 08/17/2024 23:05:20 08/17/20 24 08/17/2024 BASIC METAB OLIC PANEL (8) calcium 9.8 mg/dL 8.7-10 .2 normal Not Available [facility] ([facility]) [address] [facility], [place], [address], 08/17/2024 23:05:20 08/17/20 24 08/17/2024 HEMOG LOBIN A1C hemoglobin A1C 5.6 % 4.8-5. 6 normal Predi abete s: 5.7 - 6.4 Diabe shannan: >6.4 Glyce saritha contr ol for adult s with diabe shannan: <7.0 Not Available [facility] ([facility]) [address] [place], [address], 08/17/2024 23:05:21 09/22/19 25 09/23/2024 CHOL+ TRIG+ HDL+L DL-D cholesterol, total 102 mg/dL 100-19 9 normal Not Available [facility] ([facility]) [address] [place], [address], 09/23/2024 08:08:20 09/22/19 25 09/23/2024 CHOL+ TRIG+ HDL+L DL-D triglyceride s 89 mg/dL 0-149 normal Not Available [facility] ([facility]) [address] [place], [address], 09/23/2024 08:08:20 09/22/19 25 09/23/2024 CHOL+ TRIG+ HDL+L DL-D HDL cholesterol 41 mg/dL >39 normal Not Available [facility] ([facility]) [address] [place], [address], 09/23/2024 08:08:20 09/22/19 25 09/23/2024 CHOL+ TRIG+ HDL+L DL-D LDL chol. (direct) 48 mg/dL 0-99 Not Available [facility] ([facility]) [address] [place], [address], 09/23/2024 08:08:20 09/22/19 25 09/23/2024 CHOL+ TRIG+ HDL+L DL-D LDL direct comment: TELECOMMUNICATIONS CONSULTANT Not Available [facility] ([facility]) [address] [place], [address], 09/23/2024 08:08:20 09/22/19 25 09/23/2024 BASIC METAB OLIC PANEL (8) glucose 90 mg/dL 70-99 normal Not Available [facility] ([facility]) [address] [place], [address], 09/23/2024 08:08:21 09/22/19 25 09/23/2024 BASIC METAB OLIC PANEL (8) BUN 19 mg/dL 6-24 normal Not Available [facility] ([facility]) [address] [place], [address], 09/23/2024 08:08:21 09/22/19 25 09/23/2024 BASIC METAB OLIC PANEL (8) creatinine 1.14 mg/dL 0.76-1 .27 normal Not Available [facility] ([facility]) [address] [facility] [place], [address], 09/23/2024 08:08:21 09/22/19 25 09/23/2024 BASIC METAB OLIC PANEL (8) eGFR 79 mL/mi n/1.7 3 >59 normal Not Available [facility] ([facility]) [address] [facility] [place], [address], 09/23/2024 08:08:21 09/22/19 25 09/23/2024 BASIC METAB OLIC PANEL (8) BUN/creatini ne ratio 17 9-20 normal Not Available [facility] ([facility]) [address] [facility], [place], [address], 09/23/2024 08:08:21 09/22/19 25 09/23/2024 BASIC METAB OLIC PANEL (8) sodium 142 mmol/ L 134-14 4 normal Not Available [facility] ([facility]) [address] [facility] [place], [address], 09/23/2024 08:08:21 09/22/19 25 09/23/2024 BASIC METAB OLIC PANEL (8) potassium 3.9 mmol/ L 3.5-5. 2 normal Not Available [facility] ([facility]) [address] [place], [address], 09/23/2024 08:08:21 09/22/19 25 09/23/2024 BASIC METAB OLIC PANEL (8) chloride 99 mmol/ L 96-106 normal Not Available [facility] ([facility]) [address] [place], [address], 09/23/2024 08:08:21 09/22/19 25 09/23/2024 BASIC METAB OLIC PANEL (8) carbon dioxide, total 27 mmol/ L 20-29 normal Not Available [facility] ([facility]) [address] [facility] [place], [address], 09/23/2024 08:08:21 09/22/19 25 09/23/2024 BASIC METAB OLIC PANEL (8) calcium 9.6 mg/dL 8.7-10 .2 normal Not Available [facility] ([facility]) [address] [facility] [place], [address], 09/23/2024 08:08:21 09/22/19 25 09/23/2024 CK creatine kinase,total 242 U/L 49-439 normal Not Available [facility] ([facility]) [address] [facility], [address], 09/23/2024 08:08:21 09/22/19 25 09/23/2024 AST (SGOT ) AST (SGOT) 25 IU/L 0-40 normal Not Available [facility] ([facility]) [address] [place], [address], 09/23/2024 08:08:22 09/22/19 25 09/23/2024 ALT (SGPT ) ALT (SGPT) 26 IU/L 0-44 normal Not Available [facility] ([facility]) [address] [facility], [address], 09/23/2024 08:08:22 10/18/19 25 10/19/2024 BASIC METAB OLIC PANEL (8) glucose 128 mg/dL 70-99 above high normal Not Available [facility] ([facility]) [address] [place], [address], 10/19/2024 03:05:13 10/18/19 25 10/19/2024 BASIC METAB OLIC PANEL (8) BUN 16 mg/dL 6-24 normal Not Available [facility] ([facility]) [address] [place], [address], 10/19/2024 03:05:13 10/18/1910/19/2024 BASIC METAB OLIC PANEL (8) creatinine 1.10 mg/dL 0.76-1 .27 normal Not Available [facility] ([facility]) [address] [place], [address], 10/19/2024 03:05:13 10/18/1910/19/2024 BASIC METAB OLIC PANEL (8) eGFR 82 mL/mi n/1.7 3 >59 normal Not Available [facility] ([facility]) [address] [place], [address], 10/19/2024 03:05:13 10/18/1910/19/2024 BASIC METAB OLIC PANEL (8) BUN/creatini ne ratio 15 9-20 normal Not Available [facility] ([facility]) [address] [place], [address], 10/19/2024 03:05:13 10/18/1910/19/2024 BASIC METAB OLIC PANEL (8) sodium 139 mmol/ L 134-14 4 normal Not Available [facility] ([facility]) [address] [place], [address], 10/19/2024 03:05:13 10/18/1910/19/2024 BASIC METAB OLIC PANEL (8) potassium 4.6 mmol/ L 3.5-5. 2 normal Not Available [facility] ([facility]) [address] [place], [address], 10/19/2024 03:05:13 10/18/1910/19/2024 BASIC METAB OLIC PANEL (8) chloride 98 mmol/ L 96-106 normal Not Available [facility] ([facility]) [address] [place], [address], 10/19/2024 03:05:13 10/18/1910/19/2024 BASIC METAB OLIC PANEL (8) carbon dioxide, total 24 mmol/ L 20-29 normal Not Available [facility] ([facility]) [address] [facility] [place], [address], 10/19/2024 03:05:13 10/18/19 25 10/19/2024 BASIC METAB OLIC PANEL (8) calcium 9.4 mg/dL 8.7-10 .2 normal Not Available [facility] ([facility]) [address] [facility], [address], 10/19/2024 03:05:13 11/04/19 25 11/03/2024 BASIC METAB OLIC PANEL (8) glucose 84 mg/dL 70-99 normal Not Available [facility] ([facility]) [address] [facility], [address], 11/03/2024 23:05:19 11/04/19 25 11/03/2024 BASIC METAB OLIC PANEL (8) BUN 16 mg/dL 6-24 normal Not Available [facility] ([facility]) [address] [facility], [address], 11/03/2024 23:05:19 11/04/1911/03/2024 BASIC METAB OLIC PANEL (8) creatinine 1.02 mg/dL 0.76-1 .27 normal Not Available [facility] ([facility]) [address] [place], [address], 11/03/2024 23:05:19 11/04/19 25 11/03/2024 BASIC METAB OLIC PANEL (8) eGFR 90 mL/mi n/1.7 3 >59 normal Not Available [facility] ([facility]) [address] [place], [address], 11/03/2024 23:05:19 11/04/19 25 11/03/2024 BASIC METAB OLIC PANEL (8) BUN/creatini ne ratio 16 9-20 normal Not Available [facility] ([facility]) [address] [place], [address], 11/03/2024 23:05:19 11/04/19 25 11/03/2024 BASIC METAB OLIC PANEL (8) sodium 139 mmol/ L 134-14 4 normal Not Available [facility] ([facility]) [address] [place], [address], 11/03/2024 23:05:19 11/04/19 25 11/03/2024 BASIC METAB OLIC PANEL (8) potassium 4.6 mmol/ L 3.5-5. 2 normal Not Available [facility] ([facility]) [address] [place], [address], 11/03/2024 23:05:19 11/04/19 25 11/03/2024 BASIC METAB OLIC PANEL (8) chloride 99 mmol/ L 96-106 normal Not Available [facility] ([facility]) [address] [place], [address], 11/03/2024 23:05:19 11/04/19 25 11/03/2024 BASIC METAB OLIC PANEL (8) carbon dioxide, total 28 mmol/ L 20-29 normal Not Available [facility] ([facility]) [address] [place], [address], 11/03/2024 23:05:19 11/04/19 25 11/03/2024 BASIC METAB OLIC PANEL (8) calcium 10.0 mg/dL 8.7-10 .2 normal Not Available [facility] ([facility]) [address] [place], [address], 11/03/2024 23:05:19 11/04/19 25 11/04/2024 CHOL+ TRIG+ HDL+L DL-D cholesterol, total 100 mg/dL 100-19 9 normal Not Available [facility] ([facility]) [address] [place], [address], 11/04/2024 13:05:19 11/04/19 25 11/04/2024 CHOL+ TRIG+ HDL+L DL-D triglyceride s 39 mg/dL 0-149 normal Not Available [facility] ([facility]) [address] [place], [address], 11/04/2024 13:05:19 11/04/19 25 11/04/2024 CHOL+ TRIG+ HDL+L DL-D HDL cholesterol 43 mg/dL >39 normal Not Available [facility] ([facility]) [address] [place], [address], 11/04/2024 13:05:19 11/04/19 25 11/04/2024 CHOL+ TRIG+ HDL+L DL-D LDL chol. (direct) 49 mg/dL 0-99 Not Available [facility] ([facility]) [address] [place], [address], 11/04/2024 13:05:19 11/04/19 25 11/04/2024 CHOL+ TRIG+ HDL+L DL-D LDL direct comment: TELECOMMUNICATIONS CONSULTANT Not Available [facility] ([facility]) [address] [place], [address], 11/04/2024 13:05:19 11/04/19 25 11/04/2024 BASIC METAB OLIC PANEL (8) glucose 79 mg/dL 70-99 normal Not Available [facility] ([facility]) [address] [place], [address], 11/04/2024 13:05:19 11/04/19 25 11/04/2024 BASIC METAB OLIC PANEL (8) BUN 16 mg/dL 6-24 normal Not Available [facility] ([facility]) [address] [place], [address], 11/04/2024 13:05:19 11/04/19 25 11/04/2024 BASIC METAB OLIC PANEL (8) creatinine 1.10 mg/dL 0.76-1 .27 normal Not Available [facility] ([facility]) [address] [facility], [place], [address], 11/04/2024 13:05:19 11/04/1911/04/2024 BASIC METAB OLIC PANEL (8) eGFR 82 mL/mi n/1.7 3 >59 normal Not Available [facility] ([facility]) [address] [facility] [place], [address], 11/04/2024 13:05:19 11/04/19 25 11/04/2024 BASIC METAB OLIC PANEL (8) BUN/creatini ne ratio 15 9-20 normal Not Available [facility] ([facility]) [address] [facility], [place], [address], 11/04/2024 13:05:19 11/04/19 25 11/04/2024 BASIC METAB OLIC PANEL (8) sodium 138 mmol/ L 134-14 4 normal Not Available [facility] ([facility]) [address] [facility], [place], [address], 11/04/2024 13:05:19 11/04/19 25 11/04/2024 BASIC METAB OLIC PANEL (8) potassium 4.9 mmol/ L 3.5-5. 2 normal Not Available [facility] ([facility]) [address] [facility] [place], [address], 11/04/2024 13:05:19 11/04/19 25 11/04/2024 BASIC METAB OLIC PANEL (8) chloride 99 mmol/ L 96-106 normal Not Available [facility] ([facility]) [address] [facility] [place], [address], 11/04/2024 13:05:19 11/04/19 25 11/04/2024 BASIC METAB OLIC PANEL (8) carbon dioxide, total 26 mmol/ L 20-29 normal Not Available [facility] ([facility]) [address] [facility] [place], [address], 11/04/2024 13:05:19 11/04/19 25 11/04/2024 BASIC METAB OLIC PANEL (8) calcium 9.8 mg/dL 8.7-10 .2 normal Not Available [facility] ([facility]) [address] [place], [address], 11/04/2024 13:05:19 11/04/19 25 11/04/2024 CK creatine kinase,total 332 U/L 49-439 normal Not Available [facility] ([facility]) [address] [place], [address], 11/04/2024 13:05:20 11/04/19 25 11/04/2024 AST (SGOT ) AST (SGOT) 37 IU/L 0-40 normal Not Available [facility] ([facility]) [address] [place], [address], 11/04/2024 13:05:20 11/04/19 25 11/04/2024 ALT (SGPT ) ALT (SGPT) 30 IU/L 0-44 normal Not Available [facility] ([facility]) [address] [place], [address], 11/04/2024 13:05:21 11/20/19 25 11/19/2024 BASIC METAB OLIC PANEL (8) glucose 78 mg/dL 70-99 normal Not Available [facility] ([facility]) [address] [place], [address], 11/20/2024 00:05:15 11/20/19 25 11/19/2024 BASIC METAB OLIC PANEL (8) BUN 19 mg/dL 6-24 normal Not Available [facility] ([facility]) [address] [place], [address], 11/20/2024 00:05:15 11/20/19 25 11/19/2024 BASIC METAB OLIC PANEL (8) creatinine 1.12 mg/dL 0.76-1 .27 normal Not Available [facility] ([facility]) [address] [facility], [place], [address], 11/20/2024 00:05:15 11/20/1911/19/2024 BASIC METAB OLIC PANEL (8) eGFR 81 mL/mi n/1.7 3 >59 normal Not Available [facility] ([facility]) [address] [facility], [place], [address], 11/20/2024 00:05:15 11/20/19 25 11/19/2024 BASIC METAB OLIC PANEL (8) BUN/creatini ne ratio 17 9-20 normal Not Available [facility] ([facility]) [address] [facility], [place], [address], 11/20/2024 00:05:15 11/20/19 25 11/19/2024 BASIC METAB OLIC PANEL (8) sodium 137 mmol/ L 134-14 4 normal Not Available [facility] ([facility]) [address] [facility], [place], [address], 11/20/2024 00:05:15 11/20/19 25 11/19/2024 BASIC METAB OLIC PANEL (8) potassium 5.1 mmol/ L 3.5-5. 2 normal Not Available [facility] ([facility]) [address] [facility], [place], [address], 11/20/2024 00:05:15 11/20/19 25 11/19/2024 BASIC METAB OLIC PANEL (8) chloride 101 mmol/ L 96-106 normal Not Available [facility] ([facility]) [address] [facility] [place], [address], 11/20/2024 00:05:15 11/20/19 25 11/19/2024 BASIC METAB OLIC PANEL (8) carbon dioxide, total 22 mmol/ L 20-29 normal Not Available [facility] ([facility]) [address] [facility] [place], [address], 11/20/2024 00:05:15 11/20/19 25 11/19/2024 BASIC METAB OLIC PANEL (8) calcium 9.7 mg/dL 8.7-10 .2 normal Not Available [facility] ([facility]) [address] [facility], [place], [address], 11/20/2024 00:05:15 09/16/19 elect rocar diogr am No observ ation record ed. In-Office Order Internal Use Only DO Not Attach Compendium DO Not Attach Compendium, Do Not Delete/merge, [id number] 09/16/2024 14:59:17 09/17/19 25 09/16/2024 elect rocar diogr am No observ ation record ed. BARCODE Not Available 2024 10:31:47 11/06/19 elect rocar diogr am No observ ation record ed. In-Office Order Internal Use Only DO Not Attach Compendium DO Not Attach Compendium, Do Not Delete/merge, [id number] 11/05/2024 15:13:10 11/06/19 25 11/05/2024 elect rocar diogr am No observ ation record ed. BARCODE Not Available 2024 16:35:12 11/11/19 25 11/09/2024 US, echoc ardio gram, trans thora cic, compl ete, w/ color flow No observ ation record ed. [email or web address] [facility] (Central Scheduling For Imaging And Labs) [address] [place] [address], [address], 11/10/2024 09:09:12 11/11/19 25 11/09/2024 US, echoc ardio gram, trans thora cic, compl ete, w/ color flow [facility] [id number] [facility] [address] [address] Non- Invasi ve Cardio logy Labora torjulissa Transt horaci c Echoca rdiogr am Final Report Name: SLOANE SAUCEDO Study Date: 2024 01:22 PM [address] Pat[address] t Locati on: CD : 1975 Accoun t Number : [id number] Height : 70 in Age: 49 [...] Authen ticate d by SLOANE PINEDA MD [[id number] ] on 2024 at 13:59: 44 arding [facility] (Radiology) [address] [place] [address], [address], 11/19/2024 11:09:48 11/25/19 elect rocar diogr am No observ ation record ed. In-Office Order Internal Use Only DO Not Attach Compendium DO Not Attach Compendium, Do Not Delete/merge, [id number] 11/24/2024 12:41:19 11/26/1911/24/2024 elect rocar diogr am No observ ation record ed. BARCODE Not Available 2024 16:35:17 12/04/1911/27/2024 cardi ac monit or No observ ation record ed. [facility] [address] [place] [address], [address], 12/06/2024 10:54:49 Result Notes None recorded. Problems Name Problem SNOMED Code Status Onset Date Resolution Date Notes Provider Name and Address Organization Details Recorded Time Mixed hyperlipid emia 303707715 Active 2023 Natasha aceves [facility] 4 15:20:19 Benign essential hypertensi on 3197609 Active 2023 Natasha aceves [facility] 4 15:20:19 Dyspnea 665181009 Active 2023 Natasha aceves [facility] 4 15:20:20 Chest pain 03498635 Active 2023 Natasha aceves [facility] 4 15:20:22 Chronic combined systolic and diastolic heart failure 390811212367 100 Active 2023 [facility] 15:20:23 Type 1 diabetes mellitus 62619851 Active 2023 Cee Raygoza PA-C [address] [place] [address], [address], [facility] 4 12:15:11 Obstructiv e sleep apnea syndrome 63975437 Active on biPAP Cee Raygoza PA-C [address] [place] [address], [address], [facility] 12:16:31 Chronic obstructiv e pulmonary disease 93571061 Active 2023 Cee Raygoza PA-C [address] [place] [address], [address], [facility] 12:16:46 Problem Notes None recorded. Procedures Surgical History Date Name Laterality Status Provider Name and Address Organization Details Recorded Time Hernia Repair completed Laura Trivedi [facility] 03/01/2024 16:37:06 Imaging Results Imaging Date Name Status LastModified by Organization Details LastModified Time 09/16/2024 electrocardiogram completed In-Offi ce Order Internal Use Only DO Not Attach Compendium DO Not Attach Compendium, Do Not Delete/merge, [id number] 09/16/2024 14:59:17 09/16/2024 electrocardiogram completed BARCODE Informa tion not available 09/17/2024 10:31:47 11/05/2024 electrocardiogram completed In-Offi ce Order Internal Use Only DO Not Attach Compendium DO Not Attach Compendium, Do Not Delete/merge, [id number] 11/05/2024 15:13:10 11/05/2024 electrocardiogram completed BARCODE Informa tion not available 11/05/2024 16:35:12 11/09/2024 US, echocardiogram, transthoracic, complete, w/ color flow completed [email or web address] [facility] (Central Scheduling For Imaging And Labs) [address] [place] [address], [address], 11/10/2024 09:09:12 11/09/2024 US, echocardiogram, transthoracic, complete, w/ color flow completed [email or web address] [facility] (Radiology) [address] [place], [address], 11/19/2024 11:09:48 11/24/2024 electrocardiogram completed [email or web address] In-Offi ce Order Internal Use Only DO Not Attach Compendium DO Not Attach Compendium, Do Not Delete/merge, [id number] 11/24/2024 12:41:19 11/24/2024 electrocardiogram completed BARCODE Informa tion not available 11/25/2024 16:35:17 11/27/2024 child monitor completed [facility] (Central Scheduling For Imaging [facility] Labs) [address] [place], [address], 12/06/2024 10:54:49 Procedure Notes None recorded. Medical Equipment None Reported. Allergies Allergen ID Allergen Name Allergen Category Reaction Reaction Severity Criticality Documentation Date Start Date Code Code System Note Provider Name and Address Organization Details Recorded Time 397923 Compazine medicatio n Not available Not available Not available 03/01/202426252 6 RxNorm sever e muscl e spasm Laura Encarnacion [facility] 4 16:29:57 847073 Imitrex medicatio n Not available Not available Not available 03/01/2024 71609 3 RxNorm Laura Encarnacion [facility]. 4 16:30:08 488967 Motrin medicatio n Not available Not available Not available 03/01/202490081 8 RxNorm can' t take- harmf ul to my kidne ys Laura Encarnacion [facility]. 4 16:30:51 686545 Non-stero idal anti-infl ammatory agent (product) medicatio n other Not available Not available 03/01/2024 89307 005 SNOMED Kortney Sevilla [facility] 12:49:07 837298 Toradol medicatio n Not available Not available Not available 03/01/2024 71470 RxNorm can' t take- harmf ul to my kidne kelly Encarnacion [facility], [facility] 4 16:31:19 370858 Wellbutri n medicatio n Not available Not available Not available 03/01/2024 50511 RxNorm suici daysi aceves, [facility] 4 16:32:29 616670 codeine medicatio n itching Not available Not available 03/01/2024 2670 RxNorm Kortney aceves, [facility] 4 12:49:07 938814 ibuprofen medicatio n other Not available Not available 03/03/2024 5640 RxNorm Kortney aceves, [facility] 4 12:49:07 269474 POLLEN EXTRACTS environme nt,medica tion Not available Not available Not available 03/03/2024 05797 6 RxNorm Kortney aceves, [facility] 4 12:49:07 100649 cat dander environme nt Not available Not available Not available 03/03/2024 11571 [facility]K [facility] 4 12:49:07 518576 mold extract environme nt Not available Not available Not available 03/03/2024 42041 8 [facility] 4 12:49:07 987046 cigarette smoke environme nt Not available Not available Not available 03/03/2024 02268 UNK Kortney aceves, [facility] 4 12:49:07 Medications Name Sig Start [...] losartan Not Available Not Available Not Available Amelie RizzoPen U-100 Insulin 100 unit/mL (3 mL) subcutane [...] Updated DateTime 07/12/2024 182.88 cm 32.4 kg/m2 058536.58 g Zari Li [facility] 07/12/2024 10:12:40 Date Recorded Body height Body mass index (BMI) Body weight Heart rate Systolic blood pressure Diastolic blood pressure Provider Name and Address Organization Details Last Updated DateTime 5 182.88 cm 32.3 kg/m2 625843. 38 g 64 /min 162 mm[Hg] 90 mm[Hg] [facility] 5 15:12:27 Date Recorded Body height Heart rate Oxygen saturation Oxygen saturation in Arterial blood by Pulse oximetry Body mass index (BMI) Body weight Systolic blood pressure Diastolic blood pressure Provider Name and Address Organization Details Last Updated DateTime 5 182.88 cm 74 /min 99 % 99 % 31.6 kg/m2 488892. 72 g 134 mm[Hg] 83 mm[Hg] Geri [facility] 5 08:50:13 Date Recorded Body height Body mass index (BMI) Body weight Heart rate Systolic blood pressure Diastolic blood pressure Provider Name and Address Organization Details Last Updated DateTime 5 182.88 cm 31.9 kg/m2 371299. 01 g 64 /min 142 mm[Hg] 86 mm[Hg] Geri Ortega [facility] 14:49:18 Date Recorded Body height Body mass index (BMI) Body weight Oxygen saturation Oxygen saturation in Arterial blood by Pulse oximetry Heart rate Systolic blood pressure Diastolic blood pressure Provider Name and Address Organization Details Last Updated DateTime 182.88 cm 31.7 kg/m2 515238. 46 g 98 % 98 % 63 /min 150 mm[Hg] 94 mm[Hg] Kortney Sevilla [facility] 12:53:45 Social History Question Answer Notes LastModified by Organizat ion Details LastModified Time Tobacco Smoking Status [facility] 03/03/2024 12:49:23 Do You Have An Advance Directive? No [email or web address] Information not available 03/03/2024 What Is Your Level Of Alcohol Consumption? None Information not available 03/03/2024 Are You Blind Or Do You Have Difficulty Seeing? No Information not available 03/03/2024 Is Blood Transfusion Acceptable In An Emergency? Yes Information not available 03/03/2024 What Is Your Level Of Caffeine Consumption? Occasional Information not available 03/03/2024 Are You Currently Employed? No [email or web address] Information not available 03/03/2024 Are You Deaf Or Do You Have Serious Difficulty Hearing? No Information not available 03/03/2024 What Type Of Diet Are You Following? SPECIFIC [email or web address] Information not available 03/03/2024 Which Of Your Hands Is Dominant? Left Information not available 03/03/2024 What Was The Date Of Your Most Recent Tobacco Screening? 11/24/2024 [email or web address] Information not available 11/24/2024 Do You Have Any Pets? Yes [email or web address] Information not available 03/03/2024 What Is Your Relationship Status? Single [email or web address] Information not available 03/03/2024 Do You Feel Stressed (tense, Restless, Nervous, Or Anxious, Or Unable To Sleep At Night)? [id number] Information not available 11/24/2024 Do You Use Any Illicit Or Recreational [...] you able to care for yourself? No [email or web address] Information not available 03/03/2024 What is your exercise level? Occasional [email or web address] Information not available 03/03/2024 Mental Status None recorded. Family History Relationship Description Onset Age of this Age Resolved Age Notes LastModified by Organization Details LastModified Time Mother Depressive disorder [email or web address] Not available 2023 12:49:12 Unspecified Relation Malignant tumor of colon Not available 2023 12:49:12 Unspecified Relation Hyperlipidem ia Not available 2023 12:49:12 Maternal Grandmother Myocardial infarction [email or web address] Not available 03/03 12:49:12 Maternal Grandmother Family history of malignant neoplasm [email or web address] Not available 2023 12:49:12 Maternal Grandmother Hypertensive disorder [email or web address] Not available 2023 12:49:12 Maternal Grandfather Myocardial infarction [email or web address] Not available 03/03 12:49:12 Maternal Grandfather Cerebrovascu lar accident [email or web address] Not available 05/2024 12:49:12 Maternal Grandfather Diabetes mellitus [email or web address] Not available 2023 12:49:12 Father Depressive disorder [email or web address] Not available 2023 12:49:12 Father Diabetes mellitus [email or web address] Not available 2023 12:49:12 Medical History Condition [...] SNOMED-CT Code Diagnosis ICD10 Code Diagnosis Note [id number] Shubham Pineda MD [facility] [address] [facility] [place] [address] 03/03/2024 12:39:58 03/03/2024 14:27:57 Chronic combined systolic and diastolic heart failure 5251227038 78963 I50.42 Chest pain 20983796 R07. 2 Dyspnea 889052608 R06.02 Benign ess ential hypertension 2987454 I10 Mixed hyperlipidemia 267 620567 E78.2 Type 2 [place] mellitus without complication 824254897 E11.9 [id number] Cee Raygoza PA-C [facility] [address] [facility] [place] [address] 05/31/2024 13:17:52 05/31/2024 14:35:17 Chronic diastolic heart failure 549468128 I50.32 Benign ess ential hypertension 5487903 I10 Mixed hyperlipidemia 267 854455 E78.2 Type 1 [place] betes mellitus 58800449 E10.9 Edema of l ower extremity 442524623 R60.0 [id number] Cee Raygoza PA-C [facility] [address] [facility] [place] [address] 07/12/2024 09:13:48 07/12/2024 12:10:27 Chronic combined systolic and diastolic heart failure 6752384491 15681 I50.42 STOP lisinopril 10mg tablets dailySTOP amlodipine 7.5mg tablets dailySTART Entresto 24-26mg tablet twice dailySTART Jardiance 10mg tablets dailyConti nue metoprolol succinate 25mg tablets at bedtime Benign ess ential hypertension 6343378 I10 Type 1 [place] betes mellitus 45434863 E10.9 Chronic ob structive pulmonary disease 17090816 J44.9 Mixed hyperlipidemia 267 312654 E78.2 Dyspnea 008229143 R06.00 History of syncope 29630 98897 48236 Z86.79 [id number] Cee Raygoza PA-C [facility] [address] [facility] [place] [address] 09/16/2024 14:58:36 09/16/2024 16:11:08 Chronic combined systolic and diastolic heart failure 5939487234 48774 I50.42 Benign ess ential hypertension 8224164 I10 Mixed hyperlipidemia 267 826240 E78.2 Chronic ob structive pulmonary disease 56359279 J44.9 Type 1 [place] betes mellitus 29108256 E10.9 Obstructiv e sleep apnea syndrome 20164393 G47.33 Syncope 468764611 R55 [id number] Cee Raygoza PA-C [facility] [address] [facility],[address] [address] 10/19/2024 08:03:44 10/19/2024 10:50:35 Chronic combined systolic and diastolic heart failure 4172119942 03719 I50.42 STOP Entresto 0.5 tablets twice dailySTART losartan 12.5mg tablets in the AMContinue metoprolol succinate 12.5mg tablets at bedtime Benign ess ential hypertension 0920643 I10 Chronic ob structive pulmonary disease 27143618 J44.9 Mixed hyperlipidemia 267 336288 E78.2 Obstructiv e sleep apnea syndrome 04377329 G47.33 Type 1 [place] betes mellitus 83838172 E10.9 Increased thirst 0605601 03 R63.1 History of syncope 40315 87171 53450 Z86.79 [id number] Cee Raygoza PA-C [facility] [address] [address] 11/05/2024 14:36:23 11/05/2024 15:32:06 Chronic combined systolic and diastolic heart failure 4371065380 30032 I50.42 Chronic ob structive pulmonary disease 18523393 J44.9 Benign ess ential hypertension 3489455 I10 Type 1 [place] betes mellitus 01877087 E10.9 Mixed hyperlipidemia 267 461919 E78.2 Edema of l ower extremity 168519890 R60.0 [id number] Cee Raygoza PA-C [facility] [address] [address] 11/24/2024 12:34:31 11/24/2024 13:26:09 Chronic combined systolic and diastolic heart failure 6093786351 01928 I50.42 Benign ess ential hypertension 7617538 I10 Mixed hyperlipidemia 267 135024 E78.2 Obstructiv e sleep apnea syndrome 49956609 G47.33 Type 1 [place] betes mellitus 40934215 E10.9 Hyperkalemia 44482154 E8 7.5 Health Concerns Section Related Observation LastModified by Organization Detai ls LastModified Time None Recorded Concern Status LastModified by Organization Details LastModified Time None Recorded Advance Directives Directive N: Payers Encounter Date Sequence Insurance Name Policy Number Policy Rodriguez Covered Member ID Rodriguez Member ID Guarantor Name 07/12/2024 1 [place] [employer] Shubham Saucedo [id number] Shubham Saucedo 07/12/2024 2 [place] Shubham Saucedo [id number] Shubham Saucedo 09/16/2024 1 [place] [employer] Shubham Lizabeth Elyse [id number] Shubham Saucedo 09/16/2024 2 [place] Shubham Saucedo [id number] Shubham Saucedo 10/19/2024 1 [place] [employer] Shubham Saucedo [id number] Shubham Saucedo 10/19/2024 2 [place] Shubham Saucedo [id number] Shubham Saucedo 11/05/2024 1 [place] [employer] Shubham Saucedo [id number] Shubham Saucedo 11/05/2024 2 [place] Shubham Saucedo [id number] Shubham Saucedo 11/24/2024 1 [place] [employer] Shubham Saucedo [id number] Shubham Saucedo 11/24/2024 2 [place] Shubham Saucedo [id number] Shubham Saucedo Notes Date Note Type Note Provider Name and Address Organization Details Recorded Time 07/12/2024 text/html Shubham Saucedo i s presenting [...] extremity edema. ----treadmill nuclear stress test (PROC) [id number], echocardiogram, transthoracic, complete, w/ color flow [id number] 03/04/24 BOGDAN Tomlinson-Gabby [address] [place] [address], [phone], [facility]. 07/12/2024 12:00:23 09/16/2024 text/html Shubham [...] ----Lipid (07/21/24)Stress (03/02/24)Echo (12/01/23) Cee Raygoza PA-C [address] [place] [address], [phone], [facility] - [facility]. 09/19/2024 21:18:49 10/19/2024 text/html Shubham [...] 09/13 for which he went to the [facility] emergency room. 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 We discussed reducing his Entresto to 0.5 tablets in the morning and a full tablet at bedtime to have an updated BMP and to stop taking Sudafed if that was something that he was taking as listed on his medication list. He was also recommended to schedule to have his child monitor placed as discussed at his last office [...] lower extremity edema. ----L 09/22/24S 03/02/24E 12/01/23 Cee Raygoza PA-C [address] [place], [phone], [facility] 10/19/2024 10:40:15 11/05/2024 text/html Shubham Saucedo i s presenting to the office for a follow up appointment. He has a past medical history of T1DM, HTN, chronic systolic and diastolic heart failure, HLD, SABRINA. His last appointment in our office was on 10/19/24 with ak as a telemedicine appointment. Today, Shubham feels [...] 03/02/24Echo 12/01/23Lipid 09/22/24 Cee Raygoza PA-C [address] [place], [address], [facility] 11/05/2024 17:21:32 11/24/2024 text/html Shubham Saucedo i s presenting to the office for a 2-week follow up appointment. He has a past medical history of T1DM, HTN, chronic systolic and diastolic heart failure, HLD, SABRINA. His last appointment in our office was on 11/05/24 with me. At this visit we discussed that Shubham was doing overall well from a cardiology perspective. He reported elevated blood pressures at home despite increasing his losartan and metoprolol succinate. He was asked to increase his spironolactone to 50mg tablets daily. He agreed to continue to monitor his blood pressure at home. He was also asked to have an updated BMP next week to reassess his potassium level. Today, Shubham feels well. His blood pressure at home was 130-140s systolic. He is allergic to the child monitor stickers and was only able to tolerate this for about 1 week. Denies shortness of breath, chest pain, headache, dizziness, light headedness, palpitations, syncope, near syncope, changes in vision, jaw pain, arm pain on exertion, numbness, weakness, orthopnea or sleeping with more pillows at night, lower extremity edema. ----Stress 03/02/24Echo 11/09/24Lipid 11/03/24Monitor placed on 11/09/24. BOGDAN Tomlinson-[address], [phone], [facility] - [facility]. 11/24/2024 14:23:41
--- OUTSIDE RECORDS SUMMARY | 2024-12-06 13:26 | XMS_ITS | Continuity of Care Document ---
Author Organization [facility] Address [address] [place] [address] Phone [phone] Social History Type Date Description Comments Sex Unknown Medical Devices Description No Information Available Encounters Description No Information Available Assessments Description No Information Available Plan of Treatment No Information Available Functional Status Description No Information Available Mental Status Description No Information Available Referrals Description No Information Available
--- OUTSIDE RECORDS SUMMARY | 2024-12-06 13:27 | XMS_ITS | Clinical Summary ---
Author Organization [facility] Address [address] [place] [address] Care Team Providers Care Tea Room Manager Name Role Phone Unavailable Primary Care Provider [...]
--- OUTSIDE RECORDS SUMMARY | 2024-12-06 13:27 | XMS_ITS | Clinical Summary ---
Author Organization On license of [facility] Address [address] [place] [id number] Care Team Providers Care Pulp Bleacher Name Role Phone Unavailable Primary Care Provider [...]
--- OUTSIDE RECORDS SUMMARY | 2024-12-06 13:27 | XMS_ITS | Clinical Summary ---
Author Organization [facility] Address [address] [place] [address] Care Team Providers Care Cargo Worker Name Role Phone Unavailable Primary Care Provider [...]
--- OUTSIDE RECORDS SUMMARY | 2024-12-06 13:27 | XMS_ITS | Clinical Summary ---
Author Organization [facility] Address [address] [address] Phone Care Team Providers Care Door Technician Name Role Phone Doretha Pablo MD Primary Care Provider [phone] Allergies Active Allergy Reactions Criticality Noted Date [...] 03/23/2021 Diastolic dysfunction 03/23/20212020 Hyperlipidemia 03/23/2021 03/23/2021 Immunizations Immunization Administration Dates Next Due Influenza Whole 06/23/2007,06/20/2006 [...] Office Visit [facility] [address] [phone] Romario Gifford MD [address] [phone] Health Maintenance Due Date Last Done Comments Hepatitis B Vaccine (1 of 3 - 19+ 3-dose series) 1994 Diabetes: Ophthalmology Exam 09/18/2021 Diabetes: Pedal Pulse Checked 09/18/2021 Diabetes: Sensory Foot Exam 09/18/2021 Diabetes: Visual Foot Exam 09/18/2021 Colorectal Cancer Screening: Annual FOBT 2024 Colorectal Cancer Screening: Colonoscopy 2024 Colorectal Cancer Screening: Sigmoidoscopy 2024 Diabetes: Hemoglobin A1C 10/26/2024 07/28/2024 Influenza Vaccine (Season Ended) 2025 05/01/2022, 06/07/2008, 06/23/2007, Additional history exists Pneumococcal Vaccine: Peds ( 0 to 5 Years) and At-Risk Patients (6 to 49 Years) (4 of 4 - PCV20 or PCV21) 2025 06/21/2015, 08/27/2006, 10/28/2005 Insurance Medicaid [place] Medicare [place] Care Teams Door Technician Relationship Specialty Start Date End Date Doretha Pablo MD [address], [facility] [address] [place] [address] PCP - General Internal Medicine 08/28/23
--- OUTSIDE RECORDS SUMMARY | 2024-12-06 13:27 | XMS_ITS | Clinical Summary ---
Author Organization [facility] Address [address] [place] [address] Phone Care Team Providers Care Optometric Technician Name Role Phone Doretha Avilez MD Primary Care Provider [phone] Allergies Active Allergy Reactions Criticality Noted Date [...] EST - 09/13/2024 12:51 PM EST Emergency [facility] Emergency [address] [place] [address] Hypokalemia (Primary Dx) Discharge Disposition: Home or Self Care from Last 3 Months Surgical History Surgery Date Site/Laterality Comments HERNIA REPAIR PROCEDURE: HISTORICAL HERNIA REPAIR/UMB; COMMENT: as Medical History Medical History Date Comments Diabetes (CMS/HCC V24, CMS/HCC V28) DX:Diabetes (HCC) HTN (hypertension) DX:HTN (hyper tension) Hypercholesteremia DX:Hyperchole steremia Neuropathy DX:Neuropathy;CO MMENT:diabetic Migraine DX:Migraine Depression DX:Depression History of herniated interve rtebral disc DX:History of herniated intervertebral disc Degenerative disc disease, lumbar DX:Degenerative disc disease, lumbar Diabetic neuropathy (CMS/HCC V24, CMS/HCC V28) DX:Diabetic neuropathy (HCC) Chronic low back pain DX:Chronic low back pain Migraine DX:Migraine Gastroparesis DX:Gastroparesis Depression DX:Depression Anxiety DX:Anxiety Hyperlipidemia LDL goal <100 DX: Hyperlipidemia LDL goal <100 HTN (hypertension), benign DX:HT N (hypertension), benign Asthma DX:Asthma Chronic painful diabetic kapil ropathy (CMS/[facility] V24, [facility] V28) DX:Chronic painful diabetic neuropathy (HCC) Gastroenteritis DX:Gastroenterit is Hx of hernia repair DX:Hx of her qing repair Obesity hypoventilation synd ike (CMS/[facility] V24, 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 V24, 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 V24, [facility] V28) DX:Type 1 diabet es mellitus with diabetic neuropathy (HCC) Morbid obesity with BMI of 6 0.0-69.9, adult ([facility] V24, [facility] V28) 05/08/2021 DX:Morbid obesity wit h BMI of 60.0-69.9, adult ([facility]) Charcot's joint of ankle, right 05/08/2021 DX:Charcot's joint of ankle, right Heart failure with preserved ejection fraction ([facility] V24, [facility] V28) 02/22/2021 DX:Heart failure w ith preserved ejection fraction (HCC); COMMENT: Hospitalized [facility] 09/2020 for hypoxic hypercarbic resp failure. Syncope [...] 2024 09/05/2022, 02/23/2022, 08/03/2021, Additional history exists Diabetes: Blood Sugar Control Test (HGBA1C) 01/26/2025 07/28/2024 Diabetes: Annual Urine Albumin-Creatinine Ratio (uACR) 04/21/2025 04/21/2024, 10/20/2023 Influenza Vaccine (Season Ended) 2025 05/03/2023, 05/01/2022, 06/26/2021, Additional history exists Pneumococcal Vaccine: Pediatrics (0 to 5 Years) [...] age to complete this topic Meningococcal B Vaccine Aged Out No l onger eligible based on patient's age to complete [...] GEMUSE QTc 441 ms GEMUSE P Wave [place] -7 degrees GEMUSE R [place] -22 degrees GEMUSE T [place] -25 degrees GEMUSE ECG Interpretation Sinus bradycardia with occasional Premature ventricular complexes Nonspecific T wave abnormality Abnormal ECG When compared with ECG of 15-APR-2024 20:16, Nonspecific T wave abnormality, worse in Lateral leads Confirmed by Inessa VEE YUFENG ([id number]) on 09/13/2024 4:00:14 PM GEMUSE 09/13/2024 11:2 4 AM EST 09/13/2024 4:00 PM EST us Loni MCFADDEN ECG ORDERABLES Final Resu lt GEMUSE * Troponin I high sensitivity (09/13/2024 11:23 AM EST) Pathologist [facility] High Sensitivity Troponin I 8 <=79 ng/L LAB CHEMISTRY METHOD 09/13/2024 11:59 AM EST [facility] Blood Venous blood specimen / Unknown Venipuncture / Unknown 09/13/2024 11:23 AM EST 09/13/2024 11:36 AM EST Narrative [facility] - 09/13/2024 11:59 AM EST High levels of biotin in samples may falsely decrease hsTroponin values. ??Use caution when interpreting hsTroponin results in patients taking biotin who exhibit renal impairment (eGFR <60) or in patients taking more than 20 mg/day of biotin. Loni MCFADDEN LAB BLOOD ORDERABLES Final Result [facility] [address] [place] [address], * (ABNORMAL) CBC auto differential (09/13/2024 11:23 AM EST) WBC 14.8(H) 4.8 - 10.8 K/mcL LAB HEMETOLOGY METHOD 09/13/2024 11:43 AM [facility] RBC 4.60 4.50 - 5.50 M/mcL LAB HEMETOLOGY METHOD 09/13/2024 11:43 AM [facility] Hemoglobin 14.2 13.5 - 17.5 g/dL LAB HEMETOLOGY METHOD 09/13/2024 11:43 AM [facility] Hematocrit 41.9(L) 42.0 - 54.0 % LAB HEMETOLOGY METHOD 09/13/2024 11:43 AM [facility] MCV 90.7 79.0 - 98.0 FL LAB HEMETOLOGY METHOD 09/13/2024 11:43 AM [facility] MCH 30.7 27.0 - 32.0 pcg LAB HEMETOLOGY METHOD 09/13/2024 11:43 AM [facility] MCHC 33.9 32.0 - 37.0 g/dL LAB HEMETOLOGY METHOD 09/13/2024 11:43 AM [facility] RDW 13.3 11.0 - 15.0 % LAB HEMETOLOGY METHOD 09/13/2024 11:43 AM [facility] Platelets 191 130 - 400 K/mcL LAB HEMETOLOGY METHOD 09/13/2024 11:43 AM [facility] MPV 9.8 7.0 - 11.0 FL LAB HEMETOLOGY METHOD 09/13/2024 11:43 AM [facility] NRBC 0.0 <1.0 % LAB HEMETOLOGY METHOD 09/13/2024 11:43 AM [facility] NRBC Absolute 0.00 <0.10 K/mcL LAB HEMETOLOGY METHOD 09/13/2024 11:43 AM [facility] Neutrophils Relative 81.6 % LAB HEMETOLOGY METHOD 09/13/2024 11:43 AM [facility] Lymphocytes Relative 10.7 % LAB HEMETOLOGY METHOD 09/13/2024 11:43 AM [facility] Monocytes Relative 6.6 % LAB HEMETOLOGY METHOD 09/13/2024 11:43 AM [facility] Eosinophils Relative 0.3 % LAB HEMETOLOGY METHOD 09/13/2024 11:43 AM [facility] Basophils Relative 0.2 % LAB HEMETOLOGY METHOD 09/13/2024 11:43 AM [facility] Immature Granulocytes Relative 0.6 % LAB HEMETOLOGY METHOD 09/13/2024 11:43 AM [facility] Neutrophils Absolute 12.02(H) 1.50 - 7.00 K/mcL LAB HEMETOLOGY METHOD 09/13/2024 11:43 AM [facility] Lymphocytes Absolute 1.58 1.00 - 5.00 K/mcL LAB HEMETOLOGY METHOD 09/13/2024 11:43 AM [facility] Monocytes Absolute 0.98 0.20 - 1.00 K/mcL LAB HEMETOLOGY METHOD 09/13/2024 11:43 AM [facility] Eosinophils Absolute 0.05 0.00 - 0.50 K/mcL LAB HEMETOLOGY METHOD 09/13/2024 11:43 AM [facility] Basophils Absolute 0.03 0.00 - 0.20 K/mcL LAB HEMETOLOGY METHOD 09/13/2024 11:43 AM [facility] Immature Granulocytes Absolute 0.09(H) 0.00 - 0.03 K/mcL LAB HEMETOLOGY METHOD 09/13/2024 11:43 AM [facility] Blood Venous blood specimen / Unknown Venipuncture / Unknown 09/13/2024 11:23 AM EST 09/13/2024 11:36 AM EST Loni MCFADDEN LAB BLOOD ORDERABLES Final Result [facility] [address] [place] [address], [place] [phone] * Magnesium (09/13/2024 11:23 AM EST) Magnesium 2.0 1.9 - 2.6 mg/dL LAB CHEMISTRY METHOD 09/13/2024 12:02 PM [facility] Blood Venous blood specimen / Unknown Venipuncture / Unknown 09/13/2024 11:23 AM EST 09/13/2024 11:36 AM EST Loni MCFADDEN LAB BLOOD ORDERABLES Final Result Performing Organization Address [facility]/ZIP Co de Phone Number [facility] [address] [place] [address], [place] [phone] * (ABNORMAL) Basic metabolic panel (09/13/2024 11:23 AM EST) Sodium 134 133 - 145 mmol/L LAB CHEMISTRY METHOD 09/13/2024 12:02 PM [facility] Potassium 3.3(L) 3.5 - 5.5 mmol/L LAB CHEMISTRY METHOD 09/13/2024 12:02 PM [facility] Chloride 98 96 - 110 mmol/L LAB CHEMISTRY METHOD 09/13/2024 12:02 PM [facility] CO2 29 21 - 32 mmol/L LAB CHEMISTRY METHOD 09/13/2024 12:02 PM [facility] Anion Gap 7 3 - 11 LAB CHEMISTRY METHOD 09/13/2024 12:02 PM [facility] Glucose 103(H) 70 - 100 mg/dL LAB CHEMISTRY METHOD 09/13/2024 12:02 PM [facility] BUN 17 5 - 25 mg/dL LAB CHEMISTRY METHOD 09/13/2024 12:02 PM [facility] Creatinine 1.05 0.70 - 1.30 mg/dL LAB CHEMISTRY METHOD 09/13/2024 12:02 PM [facility] eGFR 87 >=60 mL/min/1. 73m2 LAB CHEMISTRY METHOD 09/13/2024 12:02 PM [facility] Comment:Calculation based on the??Chronic Kidney Disease Epidemiology Collaboration (CKD-EPI) equation refit??without adjustment for race. BUN/Creatinine Ratio 16.2 LAB CHEMISTRY METHOD 09/13/2024 12:02 PM [facility] Calcium 8.6 8.5 - 10.5 mg/dL LAB CHEMISTRY METHOD 09/13/2024 12:02 PM [facility] Blood Venous blood specimen / Unknown Venipuncture / Unknown 09/13/2024 11:23 AM EST 09/13/2024 11:36 AM EST us Loni MCFADDEN LAB BLOOD ORDERABLES Final Result [facility] [address] [place] [address], * ECG-Annotated (09/13/2024) us Provider Onbase MD ECG ORDERABLES Final Result from Last 3 Months Insurance MEDICARE MEDICAID - [place] Care Teams Optometric Technician Relationship Specialty Start Date End Date Doretha Avilez MD [address] [place] [id number] PCP - General 11/20/22
== END 2024-12-06 14:15 | disposition home or self-care (01) ==
LOC: HO.HOS 11:24
PROVIDERS: PCP Internal Medicine; Visit Provider Physician Assistant
DX: M19.071 Primary osteoarthritis, right ankle and foot (principal)
CPT/HCPCS: 20610; 99213

== ENCOUNTER → 2024-12-06 11:24 | Outpatient (BNVA) | payer MEDICARE, MEDICAID, SELFPAY | PROVIDERS: PCP Internal Medicine; Visit Provider Physician Assistant | DX: M19.071 Primary osteoarthritis, right ankle and foot (principal) | CPT/HCPCS: 20610; 99212; J1010; J2003 ==

== ENCOUNTER 2024-12-29 10:40 | Outpatient (AMB) | payer MEDICARE, MEDICAID, SELFPAY ==
--- NOTE | 2024-12-29 10:56 | A.OFFVIS_ITS ---
Vital Signs 12/29/24 10:57 Height 6 ft Weight 232 lb 9.403 oz BMI 31.5 BP 130/72 Blood Pressure Location Lt brachial Position Sitting Pulse 93 Pulse Source Pulse Oximeter Pulse Oximetry (%) 97 Oxygen Delivery Method Room Air Intake Visit Reasons: Obstructive sleep apnea Intake Note: pt is here for follow up of SABRINA and doing well with cpap. Coremaker Experimental Required: No Allergies codeine Allergy (Unknown, Verified 12/29/24 11:01) itching ibuprofen [IBUPROFEN] Allergy (Unknown, Verified 12/29/24 11:01) HIVES ketorolac Allergy (Unknown, Verified 12/29/24 11:01) swelling sumatriptan [From IMITREX] Allergy (Unknown, Verified 12/29/24 11:01) TACHYCARDIA bupropion [From Wellbutrin] Adverse Reaction (Severe, Verified 12/29/24 11:01) suicide thoughts prochlorperazine [From Compazine] Adverse Reaction (Unknown, Verified 12/29/24 11:01) Unknown Do you need a note to return to daycare/school/sports/work: No HPI HPI Obstructive sleep apnea: Details: Shubham is a very pleasant 49-year-old here for routine follow-up for his obstructive sleep apnea and allergic rhinitis. He has been doing well and continues to use his CPAP very regularly. He has been sleeping well and has no daytime sleepiness. Has been waking up in the morning with an occasional bloody nose after using the CPAP all night. Has oxygen at home but only needs to use if he has a respiratory illness. Has not had any recent respiratory infections and continues to use Arnuity Ellipta 1 inhalation daily only as needed. Uses albuterol rescue inhaler occasionally as needed for shortness of breath. He continues to lose weight by watching his diet and with regular exercise. He is walking an average of 2-7 miles per day. Continues to use Sudafed twice a day for chronic postnasal drip along with Flonase 2 sprays daily. [facility] Medical History Allergic rhinitis emt intermediate (current) use of non-steroidal anti-inflammatories (nsaid) Obesity (BMI 35.0-39.9 without comorbidity) Bronchitis COPD (chronic obstructive pulmonary disease) Restrictive lung disease SABRINA (obstructive sleep apnea) Morbid obesity Social History Household Members: Significant Other Housing: House Alcohol intake: never Patient Tobacco Use Status: Never used Tobacco Current occupational status: disabled Current occupation: Lt handed Review of Systems Const All systems reviewed & are unremarkable except as noted in HPI and below Eyes Reports no additional complaints ENT Details: reports bloody nose upon removal of CPAP each morning Reports nasal discharge and Reports post nasal drip Card Denies chest pain, Denies irregular heart rhythm and Denies leg edema Resp Reports as per HPI GI Reports no additional complaints Reports no additional complaints Musc Reports back pain and Reports muscle weakness Skin/Breast Reports system reviewed and no additional complaints, except as documented Neuro Reports Neuro-related abnormal movements and Reports other (Case of posttraumatic paraparesis) Psych Reports no additional complaints Endo Reports other (Diabetes mellitus with labile blood sugars) Physical Exam Vital Signs: Last Vital Signs Pulse 93 12/29/24 10:57 BP 130/72 12/29/24 10:57 Pulse Ox 97 12/29/24 10:57 Oxygen Delivery Method Room Air 12/29/24 10:57 BMI result Body Mass Index 31.5 Const General: comfortable, no acute distress, alert and awake Orientation/consciousness: patient oriented x3 HEENT Head: Yes normal to inspection General nose exam: No nasal polyps present and No nasal discharge present Face and sinus: Yes other (BILTERAL ATROPHIC RHINITIS) Mouth: oropharynx abnormals (Very crowded, Mallampati class 4) Throat: Yes posterior oropharynx normal Eyes General: appearance normal, both eyes and all related structures Neck Neck: Yes normal visual inspection, Yes no lymphadenopathy, Yes trachea midline, Yes no JVD and Yes other (Short and obese) Thyroid: Thyroid normal Chest Chest palpation & inspection: normal inspection of the chest, normal palpation of entire chest wall and no tenderness Resp Other: Percussion note resonant, breath sounds are distant and especially decreased over the bibasilar areas. No wheezes, rhonchi or crepitations are heard today. He has relatively small lung volumes but both lungs are clear. Cardio Palpation: normal PMI Rate: regular rate Rhythm: regular rhythm Heart sounds: no gallops and no murmurs GI Palpation (GI): Soft to palpation, nontender, No hepatosplenomegaly present, no masses and Other GI palpation findings present (Abdomen is quite obese and protuberant) Auscultation: normal bowel sounds Back/Spine/Pelvis Thoracic/Lumbar Spine: thoracic and lumbar spine normal to inspection Skin General skin exam: no rashes or lesions noted Neuro General: patient oriented x3, No gait normal (Not able to walk,he uses quad cane in the house,motorized chair for outdoor) and no focal motor deficits Cranial nerves: Yes CN's II-XII intact bilaterally Extrem General: Yes normal to inspection, Yes no calf tenderness and Yes edema (Mild dependent edema of the legs) Psych Appearance: grossly normal and well kempt Speech and movement: Normal speech and movement present Assessment & Plan Assessment & Plan (1) SABRINA (obstructive sleep apnea): Comment: KNOWN CASE OF SEVERE SABRINA . HE IS VERY HAPPY AND DOING WELL WITH CPAP, WITH PRESSURE OF 10 CM. COMPLIANCE IS VERY GOOD Patient with atrophic rhinitis, has intermittent bloody noses upon removal of CPAP machine in the morning Code(s): G47.33 - Obstructive sleep apnea (adult) (pediatric) Category: Medical Plan: Commended for good compliance with CPAP use, educated to continue using CPAP with humidification every night. Can use saline 1 spray in each nostril each night before bed to help with atrophic rhinitis (2) Restrictive lung disease: Comment: SECONDARY TO MORBID OBESITY, WITH SIGNIFICANT WEIGHT LOSS HIS RESTRICTIVE COMPONENT HAS IMPROVED . BMI DOWN TO 31.5 PREVIOUS SPIROMETRY SHOWS THAT HIS FVC IS NORMAL. Code(s): J98.4 - Other disorders of lung Category: Medical Plan: COMMENDED FOR WEIGHT LOSS, EDUCATED TO CONTINUE WATCHING DIET, INTO CONTINUE WALKING HIS USUAL 2-7 MILES PER DAY. (3) COPD (chronic obstructive pulmonary disease): Comment: He carries diagnosis of mild bronchial asthma/COPD, but it seems to be well controlled at this time. Code(s): J44.9 - Chronic obstructive pulmonary disease, unspecified Category: Medical Plan: CONTINUE ALBUTEROL SULFATE 90 MCG 2 PUFFS EVERY 4-6 HOURS NEEDED FOR SHORTNESS OF BREATH CONTINUE ARNUITY ELLIPTA 1 INHALATION DAILY NEEDED (4) Allergic rhinitis: Comment: He has chronic nasal congestion with postnasal drip. Controlled with use of Flonase and also he uses, pseudo ephedrine 120 mg Q 12 hours almost on a regular basis. He is aware that Sudafed will raise his blood pressure but I current blood pressure regimen has been titrated due to his daily Sudafed use. Code(s): J30.9 - Allergic rhinitis, unspecified Category: Medical Plan: CONTINUE USE OF FLONASE 50 MCG 2 SPRAYS IN EACH NARE DAILY CONTINUE TO MONITOR BLOOD PRESSURE AT HOME IF SUDAFED IS BEING TAKEN DAILY. Be careful to monitor blood pressure 1 using Sudafed . Coding Level of Care Code Est Pt Level 3 (92396) Diagnoses SABRINA (obstructive sleep apnea) G47.33 Restrictive lung disease J98.4 COPD (chronic obstructive pulmonary disease) J44.9 Allergic rhinitis J30.9
[2024-12-29 10:57] VITALS: BP 130/72; PULSE 93; O2SAT 97; BMI 31.5
--- OUTSIDE RECORDS SUMMARY | 2024-12-29 11:58 | XMS_ITS | Encounter Summary ---
Author Organization [facility] Address [address] [place] [address] Care Team Providers Care Oyster Bed Worker Name Role Phone Doretha Avilez MD Primary Care Provider + [phone] Encounter Details Date Type Department Care Team (Late st Contact Info) Description 12/25/2024 Telephone [facility] [address] [place] [id number] Fco Ford MD [address] [place] [address] [address] [place] [address] Social History Tobacco Use Types Packs/Day Years [...] Orientation Straight 09/13/2024 12 :24 PM EST documented as of this encounter Progress Notes * Brittney Rashid MA - 12/25/2024 10:05 AM EDT Spk with pt scheduled f/u per recall list--mailed reminder letter documented in this encounter Plan of Treatment Upcoming Encounters Date Type Department Care Team (Late st Contact Info) Description 01/12/2025 9:20 AM EDT Office Visit [facility] [address] [place] [phone] Fco Ford MD [address] [place] [address] [address] [place] [address] documented as of this encounter Visit Diagnoses Not on filedocumented in this encounter Care Teams Oyster Bed Worker Relationship Specialty Start Date End Date Doretha Avilez MD [address] [place] [address] [address] [place] [address] PCP - General 11/20/22 documented as of this encounter
--- OUTSIDE RECORDS SUMMARY | 2024-12-29 11:58 | XMS_ITS | Clinical Summary ---
Author Organization [facility] Address [address] [place] [address] Care Team Providers Care Rn Radiology Name Role Phone Unavailable Primary Care Provider [...]
--- OUTSIDE RECORDS SUMMARY | 2024-12-29 11:58 | XMS_ITS | Data Portability ---
Author Organization [facility], svmg_admin Address [address] [place] [id number] Care Team Providers Care Psychologist Engineering Name Role Phone IDALIA LEUNG Primary Care Provider SHUBHAM PINEDA Doctor Assistant LAVERNE TRINH Doctor Assistant [phone] ODALIS BELLO Trimming Operator Assessment Encounter Date Assessment Date Assessment LastModified by Organization Details LastModified Time 09/16/2024 09/16/2024 Shubham is presenting for a follow up appointment. He is in office with his . Shubham is doing well from a cardiology perspective. There is no evidence of decompensated heart failure, chest pain suggestive of recurrent angina, or arrhythmia. Shubham recently experienced an episode of near syncope on 09/13 for which he was seen in [facility] emergency room. He states prior [...] for his cardiomyopathy. 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 Coronel at [facility] is aware that he is on [...] encouraged him to follow up with his jewel bearing facer regarding his blood sugar levels. Shubham is [...] along with you. Not available 11/05/2024 17:20:18 11/24/2024 11/24/2024 Shubham [...] motion abnormalities, trace MR, trace TR, trace TX, stable mildly dilated ascending aorta at 4.0 [...] along with you. Not available 11/24/2024 14:23:27 12/20/2024 12/20/2024 Shubham is presenting for a post-hospitalizati on appointment. Shubham was recently seen at the [facility] Emergency room for an episode of near syncope with hypotension. Shubham reported at that time he had been working outside and was not hydrating well. Several hours later he took a THC pill for his leg pain and developed light headedness and felt very unwell. His checked his blood pressure and found it to be in the 50s systolic however on arrival EMS recorded his blood pressure to be normotensive. EMS did note his hands to be cyanotic. He was given fluids and transferred to the emergency room for evaluation. He received IV fluids in the emergency room and his work up was overall reassuring. As he was feeling improved, he requested to be discharged home. Shubham reports these episodes of hypotension and syncope/near syncope have been occurring more frequently since switching his medication regiment to include his cardiomyopathy regiment. He has a history of labile blood pressures at home and has been running in the 140-150s systolic recently. He can have a headache when in the 150s. Prior to switching his medications these episodes of near syncope/syncope had only occurred when he would strain for too long on the toilet. I have asked him to stop losartan and instead restart his lisinopril 20mg tablets daily as he felt better on this medication. We discussed that I suspect his THC pills are contributing to his episodes as they both lower his blood pressure and are likely interacting with his medication regiment. I recommended he stop utilizing THC for pain and recommended a referral to a pain clinic for management of his chronic pain. Shubham cullenantly declined a referral to pain management and was not agreeable to stopping his THC usage. We also discussed the importance of hydration particuarly in the setting of working outdoors. I did recommend reducing his spironolactone dosage and he declined. He states he has not utilized his furosemide in several months. I encouraged him to monitor his blood pressure at home and contact the office or seek medical attention for new or worsening symptoms or concerns. We will see him back in office in 1 month As always, it is a pleasure seeing patients along with you. Not available 12/21/2024 12:00:59 Plan of Treatment Reminders Order Date Submit Date Provider Last Modified By Organization Details Last Modified Time Details Appointments Any 2024 08:00A Shikha Pineda MD Not available Not available Not available Any 2024 02:30P Shikha Pineda MD Not available Not available Not available Lab BMP, serum or plasma 2024 025 [facility] (Centralized Electronic Ordering - All Locations), Patient Can Go To The Location Of Their Choice, 12/20/2024 17:05:15 lipid panel, serum 2024 025 [facility] ([facility] - All Locations), Patient Can Go To The Location Of Their Choice, 12/08/2024 08:11:44 AST/SGOT (aspartat e aminotran sferase), serum or plasma 2024 025 [facility] (Centralized Electronic Ordering - All Locations), Patient Can Go To The Location Of Their Choice, 12/08/2024 08:11:46 ALT (alanine aminotran sferase), serum or plasma 2024 025 [facility] (Centralized Electronic Ordering - All Locations), Patient Can Go To The Location Of Their Choice, 12/08/2024 08:11:46 CK (creatine kinase), total, serum 2024 025 [facility] (Centralized Electronic Ordering - All Locations), Patient Can Go To The Location Of Their Choice, 12/08/2024 08:11:45 BMP, serum or plasma 2024 025 [facility] (Centralized Electronic Ordering - All Locations), Patient Can Go To The Location Of Their Choice, 12/08/2024 08:11:45 BMP, serum or plasma 2024 025 [facility] (Centralized Electronic Ordering - All Locations), Patient Can Go To The Location Of Their Choice, 12/22/2024 06:06:01 BMP, serum or plasma 2024 025 THIERRY [...] The Location Of Their Choice, 09/23/2024 08:08:21 Referral None recorded. Procedures None recorded. Surgeries None recorded. Imaging electroca rdiogram 2024 025 THIERRY In-Office Order, Internal Use Only DO Not Attach Compendium DO Not Attach Compendium, Do Not Delete/merge, 12/20/2024 17:35:32 electroca rdiogram 2024 025 THIERRY In-Office Order, Internal Use Only DO Not Attach Compendium DO Not Attach Compendium, Do Not Delete/merge, 11/24/2024 13:27:41 electroca rdiogram 2024 025 [email or web address] In-Office Order, Internal Use Only DO Not Attach Compendium DO Not Attach Compendium, Do Not Delete/merge, 11/05/2024 15:32:06 US, echocardi ogram, transthor acic, complete, w/ color flow - 2D Color-kyra w and Doppler with contrast if clinicall y indicated according to protocol WITH CONTRAST* * 2024 025 [facility] (Central Scheduling For Imaging And Labs), [address] [place] [address], [id number], 11/10/2024 08:58:10 lunchroom monitor 2024 025 [facility] (Central Scheduling [facility]), [address] [place] [address], [id number], 12/03/2024 08:38:22 electroca rdiogram 2024 025 NORWAY In-Office Order, Internal Use Only DO Not Attach Compendium DO Not Attach Compendium, Do Not Delete/merge, [id number] 09/16/2024 16:49:24 Medication Orders lisinopri l 20 mg tablet [address] [facility], [address] [place] [address], [id number], 12/21/2024 12:37:17 losartan 50 mg tablet [email or web address], [address] [place] [address], [id number], 12/21/2024 11:26:26 spironola ctone 50 mg tablet 2024 025 [facility], [address] [place] [address], [id number], 11/08/2024 13:41:44 metoprolo l succinate ER 25 mg tablet,ex tended release 24 hr 2024 025 [facility], [address] [place] [address], [id number], 12/06/2024 10:43:52 losartan 25 mg tablet [email or web address], [address] [place] [address], [id number], 11/04/2024 10:08:38 Patient TargetsNo targets recorded. Patient InstructionsNo instructions recorded. Reason for Referral None Reported. Results Created Date Observation Date Name Description Value Unit Range Abnormal Flag Note LastModifiedBy Organization Detail LastModifiedTime 08/17/20 24 08/17/2024 BASIC METAB OLIC PANEL (8) glucose 55 mg/dL 70-99 below low normal Not Available [facility] ([facility]) [address] [place], [address], 08/17/2024 23:05:20 08/17/20 24 08/17/2024 BASIC METAB OLIC PANEL (8) BUN 16 mg/dL 6-24 normal Not Available [facility] ([facility]) [address] [place], [address], 08/17/2024 23:05:20 08/17/20 24 08/17/2024 BASIC METAB OLIC PANEL (8) creatinine 1.07 mg/dL 0.76-1 .27 normal Not Available [facility] ([facility]) [address] [place], [address], 08/17/2024 23:05:20 08/17/20 24 08/17/2024 BASIC METAB OLIC PANEL (8) eGFR 86 mL/mi n/1.7 3 >59 normal Not Available [facility] ([facility]) [address] [place], [address], 08/17/2024 23:05:20 08/17/20 24 08/17/2024 BASIC METAB OLIC PANEL (8) BUN/creatini ne ratio 15 9-20 normal Not Available [facility] ([facility]) [address] [place], [address], 08/17/2024 23:05:20 08/17/20 24 08/17/2024 BASIC METAB OLIC PANEL (8) sodium 139 mmol/ L 134-14 4 normal Not Available [facility] ([facility]) [address] [place], [address], 08/17/2024 23:05:20 08/17/20 24 08/17/2024 BASIC METAB OLIC PANEL (8) potassium 4.7 mmol/ L 3.5-5. 2 normal Not Available [facility] ([facility]) [address] [place], [address], 08/17/2024 23:05:20 08/17/20 24 08/17/2024 BASIC METAB OLIC PANEL (8) chloride 100 mmol/ L 96-106 normal Not Available [facility] ([facility]) [address] [place], [address], 08/17/2024 23:05:20 08/17/20 24 08/17/2024 BASIC METAB OLIC PANEL (8) carbon dioxide, total 30 mmol/ L 20-29 above high normal Not Available [facility] ([facility]) [address] [place], [address], 08/17/2024 23:05:20 08/17/20 24 08/17/2024 BASIC METAB OLIC PANEL (8) calcium 9.8 mg/dL 8.7-10 .2 normal Not Available [facility] ([facility]) [address] [place], [address], 08/17/2024 23:05:20 08/17/20 24 08/17/2024 HEMOG LOBIN A1C hemoglobin A1C 5.6 % 4.8-5. 6 normal Predi abete s: 5.7 - 6.4 Diabe shannan: >6.4 Glyce saritha contr ol for adult s with diabe shannan: <7.0 Not Available [facility] ([facility]) [address] [place], [address], 08/17/2024 23:05:21 09/22/19 25 09/23/2024 CHOL+ TRIG+ HDL+L DL-D cholesterol, total 102 mg/dL 100-19 9 normal Not Available [facility] ([facility]) [address] [place], [address], 09/23/2024 08:08:20 09/22/19 25 09/23/2024 CHOL+ TRIG+ HDL+L DL-D triglyceride s 89 mg/dL 0-149 normal Not Available [facility] ([facility]) [address] [place], [address], 09/23/2024 08:08:20 09/22/19 25 09/23/2024 CHOL+ TRIG+ HDL+L DL-D HDL cholesterol 41 mg/dL >39 normal Not Available [facility] ([facility]) [address] [place], [address], 09/23/2024 08:08:20 09/22/19 25 09/23/2024 CHOL+ TRIG+ HDL+L DL-D LDL chol. (direct) 48 mg/dL 0-99 Not Available [facility] ([facility]) [address] [place], [address], 09/23/2024 08:08:20 09/22/19 25 09/23/2024 CHOL+ TRIG+ HDL+L DL-D LDL direct comment: FORESTRY TECHNICAL OFFICER Not Available [facility] ([facility]) [address] [place], [address], 09/23/2024 08:08:20 09/22/19 25 09/23/2024 BASIC METAB OLIC PANEL (8) glucose 90 mg/dL 70-99 normal Not Available [facility] ([facility]) [address] [place], [address], 09/23/2024 08:08:21 09/22/19 25 09/23/2024 BASIC METAB OLIC PANEL (8) BUN 19 mg/dL 6-24 normal Not Available [facility] ([facility]) [address] [place], [address], 09/23/2024 08:08:21 09/22/19 25 09/23/2024 BASIC METAB OLIC PANEL (8) creatinine 1.14 mg/dL 0.76-1 .27 normal Not Available [facility] ([facility]) [address] [facility] [place], [address], 09/23/2024 08:08:21 09/22/19 25 09/23/2024 BASIC METAB OLIC PANEL (8) eGFR 79 mL/mi n/1.7 3 >59 normal Not Available [facility] ([facility]) [address] [facility] [place], [address], 09/23/2024 08:08:21 09/22/19 25 09/23/2024 BASIC METAB OLIC PANEL (8) BUN/creatini ne ratio 17 9-20 normal Not Available [facility] ([facility]) [address] [facility] [place], [address], 09/23/2024 08:08:21 09/22/19 25 09/23/2024 BASIC METAB OLIC PANEL (8) sodium 142 mmol/ L 134-14 4 normal Not Available [facility] ([facility]) [address] [facility] [place], [address], 09/23/2024 08:08:21 09/22/19 25 09/23/2024 BASIC METAB OLIC PANEL (8) potassium 3.9 mmol/ L 3.5-5. 2 normal Not Available [facility] ([facility]) [address] [facility] [place], [address], 09/23/2024 08:08:21 09/22/19 25 09/23/2024 BASIC METAB OLIC PANEL (8) chloride 99 mmol/ L 96-106 normal Not Available [facility] ([facility]) [address] [facility] [place], [address], 09/23/2024 08:08:21 09/22/19 25 09/23/2024 BASIC METAB OLIC PANEL (8) carbon dioxide, total 27 mmol/ L 20-29 normal Not Available [facility] ([facility]) [address] [place], [address], 09/23/2024 08:08:21 09/22/19 25 09/23/2024 BASIC METAB OLIC PANEL (8) calcium 9.6 mg/dL 8.7-10 .2 normal Not Available [facility] ([facility]) [address] [place], [address], 09/23/2024 08:08:21 09/22/19 25 09/23/2024 CK creatine kinase,total 242 U/L 49-439 normal Not Available [facility] ([facility]) [address] [place], [address], 09/23/2024 08:08:21 09/22/19 25 09/23/2024 AST (SGOT ) AST (SGOT) 25 IU/L 0-40 normal Not Available [facility] ([facility]) [address] [place], [address], 09/23/2024 08:08:22 09/22/19 25 09/23/2024 ALT (SGPT ) ALT (SGPT) 26 IU/L 0-44 normal Not Available [facility] ([facility]) [address] [place], [address], 09/23/2024 08:08:22 10/18/19 25 10/19/2024 BASIC METAB OLIC PANEL (8) glucose 128 mg/dL 70-99 above high normal Not Available [facility] ([facility]) [address] [place], [address], 10/19/2024 03:05:13 10/18/19 25 10/19/2024 BASIC METAB OLIC PANEL (8) BUN 16 mg/dL 6-24 normal Not Available [facility] ([facility]) [address] [place], [address], 10/19/2024 03:05:13 10/18/1910/19/2024 BASIC METAB OLIC PANEL (8) creatinine 1.10 mg/dL 0.76-1 .27 normal Not Available [facility] ([facility]) [address] [facility] [place], [address], 10/19/2024 03:05:13 10/18/1910/19/2024 BASIC METAB OLIC PANEL (8) eGFR 82 mL/mi n/1.7 3 >59 normal Not Available [facility] ([facility]) [address] [facility] [place], [address], 10/19/2024 03:05:13 10/18/1910/19/2024 BASIC METAB OLIC PANEL (8) BUN/creatini ne ratio 15 9-20 normal Not Available [facility] ([facility]) [address] [facility] [place], [address], 10/19/2024 03:05:13 10/18/1910/19/2024 BASIC METAB OLIC PANEL (8) sodium 139 mmol/ L 134-14 4 normal Not Available [facility] ([facility]) [address] [place], [address], 10/19/2024 03:05:13 10/18/1910/19/2024 BASIC METAB OLIC PANEL (8) potassium 4.6 mmol/ L 3.5-5. 2 normal Not Available [facility] ([facility]) [address] [facility] [place], [address], 10/19/2024 03:05:13 10/18/1910/19/2024 BASIC METAB OLIC PANEL (8) chloride 98 mmol/ L 96-106 normal Not Available [facility] ([facility]) [address] [place], [address], 10/19/2024 03:05:13 10/18/1910/19/2024 BASIC METAB OLIC PANEL (8) carbon dioxide, total 24 mmol/ L 20-29 normal Not Available [facility] ([facility]) [address] [place], [address], 10/19/2024 03:05:13 10/18/19 25 10/19/2024 BASIC METAB OLIC PANEL (8) calcium 9.4 mg/dL 8.7-10 .2 normal Not Available [facility] ([facility]) [address] [place], [address], 10/19/2024 03:05:13 11/04/1911/03/2024 BASIC METAB OLIC PANEL (8) glucose 84 mg/dL 70-99 normal Not Available [facility] ([facility]) [address] [place], [address], 11/03/2024 23:05:19 11/04/19 25 11/03/2024 BASIC METAB OLIC PANEL (8) BUN 16 mg/dL 6-24 normal Not Available [facility] ([facility]) [address] [place], [address], 11/03/2024 23:05:19 11/04/19 25 11/03/2024 BASIC METAB OLIC PANEL (8) creatinine 1.02 mg/dL 0.76-1 .27 normal Not Available [facility] ([facility]) [address] [place], [address], 11/03/2024 23:05:19 11/04/19 25 11/03/2024 BASIC METAB OLIC PANEL (8) eGFR 90 mL/mi n/1.7 3 >59 normal Not Available [facility] ([facility]) [address] [place], [address], 11/03/2024 23:05:19 11/04/19 25 11/03/2024 BASIC METAB OLIC PANEL (8) BUN/creatini ne ratio 16 9-20 normal Not Available [facility] ([facility]) [address] [facility] [place], [address], 11/03/2024 23:05:19 11/04/19 25 11/03/2024 BASIC METAB OLIC PANEL (8) sodium 139 mmol/ L 134-14 4 normal Not Available [facility] ([facility]) [address] [facility] [place], [address], 11/03/2024 23:05:19 11/04/19 25 11/03/2024 BASIC METAB OLIC PANEL (8) potassium 4.6 mmol/ L 3.5-5. 2 normal Not Available [facility] ([facility]) [address] [facility] [place], [address], 11/03/2024 23:05:19 11/04/19 25 11/03/2024 BASIC METAB OLIC PANEL (8) chloride 99 mmol/ L 96-106 normal Not Available [facility] ([facility]) [address] [facility] [place], [address], 11/03/2024 23:05:19 11/04/19 25 11/03/2024 BASIC METAB OLIC PANEL (8) carbon dioxide, total 28 mmol/ L 20-29 normal Not Available [facility] ([facility]) [address] [place], [address], 11/03/2024 23:05:19 11/04/19 25 11/03/2024 BASIC METAB OLIC PANEL (8) calcium 10.0 mg/dL 8.7-10 .2 normal Not Available [facility] ([facility]) [address] [facility] [place], [address], 11/03/2024 23:05:19 11/04/19 25 11/04/2024 CHOL+ TRIG+ HDL+L DL-D cholesterol, total 100 mg/dL 100-19 9 normal Not Available [facility] ([facility]) [address] [place], [address], 11/04/2024 13:05:19 11/04/19 25 11/04/2024 CHOL+ TRIG+ HDL+L DL-D triglyceride s 39 mg/dL 0-149 normal Not Available [facility] ([facility]) [address] [place], [address], 11/04/2024 13:05:19 11/04/19 25 11/04/2024 CHOL+ TRIG+ HDL+L DL-D HDL cholesterol 43 mg/dL >39 normal Not Available [facility] ([facility]) [address] [place], [address], 11/04/2024 13:05:19 11/04/19 25 11/04/2024 CHOL+ TRIG+ HDL+L DL-D LDL chol. (direct) 49 mg/dL 0-99 Not Available [facility] ([facility]) [address] [place], [address], 11/04/2024 13:05:19 11/04/19 25 11/04/2024 CHOL+ TRIG+ HDL+L DL-D LDL direct comment: FORESTRY TECHNICAL OFFICER Not Available [facility] ([facility]) [address] [place], [address], 11/04/2024 13:05:19 11/04/19 25 11/04/2024 BASIC METAB OLIC PANEL (8) glucose 79 mg/dL 70-99 normal Not Available [facility] ([facility]) [address] [place], [address], 11/04/2024 13:05:19 11/04/19 25 11/04/2024 BASIC METAB OLIC PANEL (8) BUN 16 mg/dL 6-24 normal Not Available [facility] ([facility]) [address] [place], [address], 11/04/2024 13:05:19 11/04/19 25 11/04/2024 BASIC METAB OLIC PANEL (8) creatinine 1.10 mg/dL 0.76-1 .27 normal Not Available [facility] ([facility]) [address] [facility] [place], [address], 11/04/2024 13:05:19 11/04/19 25 11/04/2024 BASIC METAB OLIC PANEL (8) eGFR 82 mL/mi n/1.7 3 >59 normal Not Available [facility] ([facility]) [address] [facility] [place], [address], 11/04/2024 13:05:19 11/04/19 25 11/04/2024 BASIC METAB OLIC PANEL (8) BUN/creatini ne ratio 15 9-20 normal Not Available [facility] ([facility]) [address] [place], [address], 11/04/2024 13:05:19 11/04/19 25 11/04/2024 BASIC METAB OLIC PANEL (8) sodium 138 mmol/ L 134-14 4 normal Not Available [facility] ([facility]) [address] [place], [address], 11/04/2024 13:05:19 11/04/19 25 11/04/2024 BASIC METAB OLIC PANEL (8) potassium 4.9 mmol/ L 3.5-5. 2 normal Not Available [facility] ([facility]) [address] [place], [address], 11/04/2024 13:05:19 11/04/19 25 11/04/2024 BASIC METAB OLIC PANEL (8) chloride 99 mmol/ L 96-106 normal Not Available [facility] ([facility]) [address] [place], [address], 11/04/2024 13:05:19 11/04/19 25 11/04/2024 BASIC METAB OLIC PANEL (8) carbon dioxide, total 26 mmol/ L 20-29 normal Not Available [facility] ([facility]) [address] [place], [address], 11/04/2024 13:05:19 11/04/19 25 11/04/2024 BASIC METAB OLIC PANEL (8) calcium 9.8 mg/dL 8.7-10 .2 normal Not Available [facility] ([facility]) [address] [place], [address], 11/04/2024 13:05:19 11/04/19 25 11/04/2024 CK creatine kinase,total 332 U/L 49-439 normal Not Available [facility] ([facility]) [address] [place], [address], 11/04/2024 13:05:20 11/04/19 25 11/04/2024 AST (SGOT ) AST (SGOT) 37 IU/L 0-40 normal Not Available [facility] ([facility]) [address] [place], [address], 11/04/2024 13:05:20 11/04/19 25 11/04/2024 ALT (SGPT ) ALT (SGPT) 30 IU/L 0-44 normal Not Available [facility] ([facility]) [address] [place], [address], 11/04/2024 13:05:21 11/20/19 25 11/19/2024 BASIC METAB OLIC PANEL (8) glucose 78 mg/dL 70-99 normal Not Available [facility] ([facility]) [address] [place], [address], 11/20/2024 00:05:15 11/20/19 25 11/19/2024 BASIC METAB OLIC PANEL (8) BUN 19 mg/dL 6-24 normal Not Available [facility] ([facility]) [address] [place], [address], 11/20/2024 00:05:15 11/20/19 25 11/19/2024 BASIC METAB OLIC PANEL (8) creatinine 1.12 mg/dL 0.76-1 .27 normal Not Available [facility] ([facility]) [address] [facility] [place], [address], 11/20/2024 00:05:15 11/20/19 25 11/19/2024 BASIC METAB OLIC PANEL (8) eGFR 81 mL/mi n/1.7 3 >59 normal Not Available [facility] ([facility]) [address] [facility] [place], [address], 11/20/2024 00:05:15 11/20/19 25 11/19/2024 BASIC METAB OLIC PANEL (8) BUN/creatini ne ratio 17 9-20 normal Not Available [facility] ([facility]) [address] [place], [address], 11/20/2024 00:05:15 11/20/19 25 11/19/2024 BASIC METAB OLIC PANEL (8) sodium 137 mmol/ L 134-14 4 normal Not Available [facility] ([facility]) [address] [place], [address], 11/20/2024 00:05:15 11/20/19 25 11/19/2024 BASIC METAB OLIC PANEL (8) potassium 5.1 mmol/ L 3.5-5. 2 normal Not Available [facility] ([facility]) [address] [place], [address], 11/20/2024 00:05:15 11/20/19 25 11/19/2024 BASIC METAB OLIC PANEL (8) chloride 101 mmol/ L 96-106 normal Not Available [facility] ([facility]) [address] [place], [address], 11/20/2024 00:05:15 11/20/19 25 11/19/2024 BASIC METAB OLIC PANEL (8) carbon dioxide, total 22 mmol/ L 20-29 normal Not Available [facility] ([facility]) [address] [facility] [place], [address], 11/20/2024 00:05:15 11/20/1911/19/2024 BASIC METAB OLIC PANEL (8) calcium 9.7 mg/dL 8.7-10 .2 normal Not Available [facility] ([facility]) [address] [facility] [place], [address], 11/20/2024 00:05:15 12/08/19 25 12/08/2024 CHOL+ TRIG+ HDL+L DL-D cholesterol, total 116 mg/dL 100-19 9 normal Not Available [facility] ([facility]) [address] [facility] [place], [address], 12/08/2024 08:11:44 12/08/19 25 12/08/2024 CHOL+ TRIG+ HDL+L DL-D triglyceride s 91 mg/dL 0-149 normal Not Available [facility] ([facility]) [address] [facility] [place], [address], 12/08/2024 08:11:44 12/08/19 25 12/08/2024 CHOL+ TRIG+ HDL+L DL-D HDL cholesterol 49 mg/dL >39 normal Not Available [facility] ([facility]) [address] [facility] [place], [address], 12/08/2024 08:11:44 12/08/1912/08/2024 CHOL+ TRIG+ HDL+L DL-D LDL chol. (direct) 55 mg/dL 0-99 Not Available [facility] ([facility]) [address] [place], [address], 12/08/2024 08:11:44 12/08/19 25 12/08/2024 CHOL+ TRIG+ HDL+L DL-D LDL direct comment: FORESTRY TECHNICAL OFFICER Not Available [facility] ([facility]) [address] [place], [address], 12/08/2024 08:11:44 12/08/19 25 12/08/2024 BASIC METAB OLIC PANEL (8) glucose 101 mg/dL 70-99 above high normal Not Available [facility] Lab) [address] [place], [address], 12/08/2024 08:11:44 12/08/19 25 12/08/2024 BASIC METAB OLIC PANEL (8) BUN 25 mg/dL 6-24 above high normal Not Available [facility] ([facility]) [address] [place], [address], 12/08/2024 08:11:44 12/08/19 25 12/08/2024 BASIC METAB OLIC PANEL (8) creatinine 1.07 mg/dL 0.76-1 .27 normal Not Available [facility] ([facility]) [address] [place], [address], 12/08/2024 08:11:44 12/08/19 25 12/08/2024 BASIC METAB OLIC PANEL (8) eGFR 85 mL/mi n/1.7 3 >59 normal Not Available [facility] ([facility]) [address] [place], [address], 12/08/2024 08:11:44 12/08/19 25 12/08/2024 BASIC METAB OLIC PANEL (8) BUN/creatini ne ratio 23 9-20 above high normal Not Available [facility] ([facility]) [address] [place], [address], 12/08/2024 08:11:44 12/08/19 25 12/08/2024 BASIC METAB OLIC PANEL (8) sodium 137 mmol/ L 134-14 4 normal Not Available [facility] ([facility]) [address] [place], [address], 12/08/2024 08:11:44 12/08/19 25 12/08/2024 BASIC METAB OLIC PANEL (8) potassium 4.1 mmol/ L 3.5-5. 2 normal Not Available [facility] ([facility]) [address] [facility] [place], [address], 12/08/2024 08:11:44 12/08/19 25 12/08/2024 BASIC METAB OLIC PANEL (8) chloride 97 mmol/ L 96-106 normal Not Available [facility] ([facility]) [address] [facility] [place], [address], 12/08/2024 08:11:44 12/08/19 25 12/08/2024 BASIC METAB OLIC PANEL (8) carbon dioxide, total 21 mmol/ L 20-29 normal Not Available [facility] ([facility]) [address] [facility] [place], [address], 12/08/2024 08:11:44 12/08/19 25 12/08/2024 BASIC METAB OLIC PANEL (8) calcium 9.9 mg/dL 8.7-10 .2 normal Not Available [facility] ([facility]) [address] [facility] [place], [address], 12/08/2024 08:11:44 12/08/19 25 12/08/2024 CK creatine kinase,total 305 U/L 49-439 normal Not Available [facility] ([facility]) [address] [place], [address], 12/08/2024 08:11:45 12/08/1912/08/2024 AST (SGOT ) AST (SGOT) 29 IU/L 0-40 normal Not Available [facility] ([facility]) [address] [place], [address], 12/08/2024 08:11:45 12/08/19 25 12/08/2024 ALT (SGPT ) ALT (SGPT) 26 IU/L 0-44 normal Not Available [facility] ([facility]) [address] [place], [address], 12/08/2024 08:11:46 09/16/19 elect rocar diogr am No observ ation record ed. In-Office Order Internal Use Only DO Not Attach Compendium DO Not Attach Compendium, Do Not Delete/merge, [id number] 09/16/2024 14:59:17 09/17/19 25 09/16/2024 elect rocar diogr am No observ ation record ed. BARCODE Not Available 2024 10:31:47 11/06/19 elect rocar diogr am No observ ation record ed. In-Office Order Internal Use Only DO Not Attach Compendium DO Not Attach Compendium, Do Not Delete/merge, [id number] 11/05/2024 15:13:10 11/06/1911/05/2024 elect rocar diogr am No observ ation record ed. BARCODE Not Available 2024 16:35:12 11/11/19 25 11/09/2024 US, echoc ardio gram, trans thora cic, compl ete, w/ color flow No observ ation record ed. [email or web address] [facility] ([facility] For [facility]) [address] [place] [address], [address], 11/10/2024 09:09:12 11/11/1911/09/2024 US, echoc ardio gram, trans thora cic, compl ete, w/ color flow Study ID: [id number] [facility] [address] [address] Non- Invasi ve Cardio logy Labora torjulissa Transt horaci c Echoca rdiogr am Final Report Name: SLOANE SAUCEDO Study Date: 2024 01:22 PM [address] Patien t Locati on: CD : 1975 Accoun t Number : [id number] Height : 70 in Age: 49 [...] Authen ticate d by SLOANE PINEDA MD [[id number] ] on 2024 at 13:59: 44 [facility] (Radiology) [address] [place] [address], [address], 11/19/2024 11:09:48 11/25/19 25 elect rocar diogr am No observ ation record ed. [email or web address] In-Office Order Internal Use Only DO Not Attach Compendium DO Not Attach Compendium, Do Not Delete/merge, [id number] 11/24/2024 12:41:19 11/26/19 25 11/24/2024 elect rocar diogr am No observ ation record ed. BARCODE Not Available 2024 16:35:17 12/04/19 25 11/27/2024 cardi ac monit or No observ ation record ed. [facility] ([facility]) [address] [place] [address], [address], 12/06/2024 10:54:49 12/21/19 25 elect rocar diogr am No observ ation record ed. In-Office Order Internal Use Only DO Not Attach Compendium DO Not Attach Compendium, Do Not Delete/merge, [id number] 12/20/2024 15:15:50 12/22/19 25 12/20/2024 elect rocar diogr am No observ ation record ed. BARCODE Not Available 2024 10:23:56 Result Notes None recorded. Problems Name Problem SNOMED Code Status Onset Date Resolution Date Notes Provider Name and Address Organization Details Recorded Time Mixed hyperlipid emia 173626097 Active 2023 Natasha aceves [facility] 4 15:20:19 Benign essential hypertensi on 5458360 Active 2023 Natasha aceves [facility] 4 15:20:19 Dyspnea 519689935 Active 2023 Natasha aceves [facility] 4 15:20:20 Chest pain 31705914 Active 2023 Natasha aceves [facility] 4 15:20:22 Chronic combined systolic and diastolic heart failure 369900934920 100 Active 2023 Natasha Wheeler [facility] 4 15:20:23 Type 1 diabetes mellitus 38543960 Active 2023 Cee Raygoza PA-C [address] [place] [address], [address], [facility] 4 12:15:11 Obstructiv e sleep apnea syndrome 92822897 Active on biPAP Cee Raygoza PA-C [address] [place] [address], [address], [facility] 4 12:16:31 Chronic obstructiv e pulmonary disease 04074567 Active 2023 Cee Raygoza PA-C [address] [place] [address], [address], [facility] 12:16:46 Problem Notes None recorded. Procedures Surgical History Date Name Laterality Status Provider Name and Address Organization Details Recorded Time Hernia Repair completed Laurashagufta Trivedi [facility] 03/01/2024 16:37:06 Imaging Results Imaging Date Name Status LastModified by Organization Details LastModified Time 09/16/2024 electrocardiogram completed In-Offi ce Order Internal Use Only DO Not Attach Compendium DO Not Attach Compendium, Do Not Delete/merge, [id number] 09/16/2024 14:59:17 09/16/2024 electrocardiogram completed BARCODE Informa tion not available 09/17/2024 10:31:47 11/05/2024 electrocardiogram completed In-Offi ce Order Internal Use Only DO Not Attach Compendium DO Not Attach Compendium, Do Not Delete/merge, [id number] 11/05/2024 15:13:10 11/05/2024 electrocardiogram completed BARCODE Informa tion not available 11/05/2024 16:35:12 11/09/2024 US, echocardiogram, transthoracic, complete, w/ color flow completed [email or web address] [facility] ([facility] Scheduling For [facility]) [address] [place] [address], [address], 11/10/2024 09:09:12 11/09/2024 US, echocardiogram, transthoracic, complete, w/ color flow completed [facility] (Radiology) [address] [place] [address], [address], 11/19/2024 11:09:48 11/24/2024 electrocardiogram completed In-Offi ce Order Internal Use Only DO Not Attach Compendium DO Not Attach Compendium, Do Not Delete/merge, [id number] 11/24/2024 12:41:19 11/24/2024 electrocardiogram completed BARCODE Informa tion not available 11/25/2024 16:35:17 11/27/2024 lunchroom monitor completed [facility] (Central Scheduling For Imaging [facility] Labs) [address] [place] [address], [address], 12/06/2024 10:54:49 12/20/2024 electrocardiogram completed In-Offi ce Order Internal Use Only DO Not Attach Compendium DO Not Attach Compendium, Do Not Delete/merge, [id number] 12/20/2024 15:15:50 12/20/2024 electrocardiogram completed BARCODE Informa tion not available 12/21/2024 10:23:56 Procedure Notes None recorded. Medical Equipment None Reported. Allergies Allergen ID Allergen Name Allergen Category Reaction Reaction Severity Criticality Documentation Date Start Date Code Code System Note Provider Name and Address Organization Details Recorded Time 124923 Compazine medicatio n Not available Not available Not available 03/01/202406217 6 RxNorm sever e muscl e spasm Laura aceves [facility] 4 16:29:57 212134 Imitrex medicatio n Not available Not available Not available 03/01/2024 3 RxNorm Laura aceves [facility] 4 16:30:08 051940 Motrin medicatio n Not available Not available Not available 03/01/202457030 8 RxNorm can' t take- harmf ul to my kidne ys Laura aceves [facility] 4 16:30:51 764624 Non-stero idal anti-infl ammatory agent (product) medicatio n other Not available Not available 03/01/2024 74447 005 SNOMED Kortney aceves, [facility] 4 12:49:07 451366 Toradol medicatio n Not available Not available Not available 03/01/2024 76553 RxNorm can' t take- harmf ul to my kidne ys Laura aceves, [facility] 4 16:31:19 151871 Wellbutri n medicatio n Not available Not available Not available 03/01/2024 13391 RxNorm suici daysi [facility] 4 16:32:29 602675 codeine medicatio n itching Not available Not available 03/01/2024 2670 RxNorm Kortney aceves, [facility] 4 12:49:07 619193 ibuprofen medicatio n other Not available Not available 03/03/2024 5640 RxNorm Kortney aceves, [facility] 4 12:49:07 320659 POLLEN EXTRACTS environme nt,medica tion Not available Not available Not available 03/03/2024 07125 6 RxNorm Kortney Sevilla ketan, [facility] 4 12:49:07 006958 cat dander environme nt Not available Not available Not available 03/03/2024 46895 UNK Kortney Sevilla ketan, [facility] 4 12:49:07 576671 mold extract environme nt Not available Not available Not available 03/03/2024 65737 8 RxNorm Kortney aceves, [facility] 4 12:49:07 350226 cigarette smoke environme nt Not available Not available Not available 03/03/2024 83813 UNK Kortneysavannah aceves, [facility] 12:49:07 Medications Name Sig Start Date Stop Date Status Note LastModified by Organization Details LastModified Time losartan 50 mg tablet Take 1 tablet twice a day by oral route. 12/21 completed Not Available Not Available Not Available celecoxib 200 mg capsule Take 1 capsule [...] Not Available lisinopri l 20 mg tablet Take 1 tablet every day by oral route, for blood pressure control. 2024 active Not Available Not Available Not Avai lable prednison e 20 mg tablet 03/03 completed [...] Updated DateTime 5 182.88 cm 32.3 kg/m2 028942. 38 g 64 /min 162 mm[Hg] 90 mm[Hg] Geri Ortega [facility] 5 15:12:27 Date Recorded Body height Heart rate Oxygen saturation Oxygen saturation in Arterial blood by Pulse oximetry Body mass index (BMI) Body weight Systolic blood pressure Diastolic blood pressure Provider Name and Address Organization Details Last Updated DateTime 5 182.88 cm 74 /min 99 % 99 % 31.6 kg/m2 228254. 72 g 134 mm[Hg] 83 mm[Hg] Geri Ortega [facility] 5 08:50:13 Date Recorded Body height Body mass index (BMI) Body weight Heart rate Systolic blood pressure Diastolic blood pressure Provider Name and Address Organization Details Last Updated DateTime 5 182.88 cm 31.9 kg/m2 820918. 01 g 64 /min 142 mm[Hg] 86 mm[Hg] Geri Ortega [facility] 5 14:49:18 Date Recorded Body height Body mass index (BMI) Body weight Oxygen saturation Oxygen saturation in Arterial blood by Pulse oximetry Heart rate Systolic blood pressure Diastolic blood pressure Provider Name and Address Organization Details Last Updated DateTime 5 182.88 cm 31.7 kg/m2 021586. 46 g 98 % 98 % 63 /min 150 mm[Hg] 94 mm[Hg] Kortney Sevilla [facility] 5 12:53:45 Date Recorded Body height Body mass index (BMI) Body weight Heart rate Systolic blood pressure Diastolic blood pressure Provider Name and Address Organization Details Last Updated DateTime 5 182.88 cm 18.1 kg/m2 18056.8 9 g 61 /min 150 mm[Hg] 84 mm[Hg] Geri Ortega [facility] 5 15:32:59 Social History Question Answer Notes LastModified by Organizat ion Details LastModified Time Tobacco Smoking Status Never Smoker Kortney Sevilla [facility] 03/03/2024 12:49:23 Do You Have An Advance Directive? No [email or web address] Information not available 03/03/2024 What Is Your Level Of Alcohol Consumption? None [email or web address] Information not available 03/03/2024 Are You Blind Or Do You Have Difficulty Seeing? No [email or web address] Information not available 03/03/2024 Is Blood Transfusion Acceptable In An Emergency? Yes [email or web address] Information not available 03/03/2024 What Is Your Level Of Caffeine Consumption? Occasional [email or web address] Information not available 03/03/2024 Are You Currently Employed? No [email or web address] Information not available 03/03/2024 Are You Deaf Or Do You Have Serious Difficulty Hearing? No [email or web address] Information not available 03/03/2024 What Type Of Diet Are You Following? SPECIFIC [email or web address] Information not available 03/03/2024 Which Of Your Hands Is Dominant? Left [email or web address] Information not available 03/03/2024 What Was The Date Of Your Most Recent Tobacco Screening? 12/20/2024 Information not available 12/20/2024 Do You Have Any Pets? Yes [email or web address] Information not available 03/03/2024 What Is Your Relationship Status? Single [email or web address] Information not available 03/03/2024 Do You Feel Stressed (tense, Restless, Nervous, Or Anxious, Or Unable To Sleep At Night)? [id number] [email or web address] Information not available 11/24/2024 Do You Use Any Illicit Or Recreational Drugs? No Information not available 10/19/2024 Has Tobacco Cessation Counseling Been Provided? No Information not available 11/05/2024 Do You Or Have You Ever Used Any Other Forms Of Tobacco Or Nicotine? No [email or web address] Information not available 03/03/2024 Sex: Unknown Functional Status Question Answer Note LastModified by Organizat ion Details LastModified Time Are you able to care for yourself? No [email or web address] Information not available 03/03/2024 What is your exercise level? Occasional [email or web address] Information not available 03/03/2024 Mental Status None recorded. Family History Relationship Description Onset Age of this Age Resolved Age Notes LastModified by Organization Details LastModified Time Mother Depressive disorder Not available 2023 12:49:12 Unspecified Relation Malignant tumor of colon Not available 2023 12:49:12 Unspecified Relation Hyperlipidem ia [email or web address] Not available 2023 12:49:12 Maternal Grandmother Myocardial infarction [email or web address] Not available 03/03 12:49:12 Maternal Grandmother Family history of malignant neoplasm [email or web address] Not available 2023 12:49:12 Maternal Grandmother Hypertensive disorder [email or web address] Not available 2023 12:49:12 Maternal Grandfather Myocardial infarction [email or web address] Not available 03/03 12:49:12 Maternal Grandfather Cerebrovascu lar accident [email or web address] Not available 05/2024 12:49:12 Maternal Grandfather Diabetes mellitus [email or web address] Not available 2023 12:49:12 Father Depressive disorder [email or web address] Not available 2023 12:49:12 Father Diabetes mellitus [email or web address] Not available 2023 12:49:12 Medical History Condition [...] SNOMED-CT Code Diagnosis ICD10 Code Diagnosis Note [id number] Shubham Pineda MD [facility] [address] 03/03/2024 12:39:58 03/03/2024 14:27:57 Chronic combined systolic and diastolic heart failure 9348688821 33372 I50.42 Chest pain 09322553 R07. 2 Dyspnea 154330695 R06.02 Benign ess ential hypertension 0811720 I10 Mixed hyperlipidemia 267 337825 E78.2 Type 2 [place] bet[place] mellitus without complication 341049420 E11.9 [id number] Shubham Pineda MD [facility] [address] 05/31/2024 13:17:52 05/31/2024 14:35:17 Chronic diastolic heart failure 461900282 I50.32 Benign ess ential hypertension 0251325 I10 Mixed hyperlipidemia 267 402584 E78.2 Type 1 [place] betes mellitus 78104097 E10.9 Edema of l ower extremity 239720193 R60.0 [id number] Shubham Pineda MD [facility] [address] [place] [address] 07/12/2024 09:13:48 07/12/2024 12:10:27 Chronic combined systolic and diastolic heart failure 0986087771 87898 I50.42 STOP lisinopril 10mg tablets dailySTOP amlodipine 7.5mg tablets dailySTART Entresto 24-26mg tablet twice dailySTART Jardiance 10mg tablets dailyConti nue metoprolol succinate 25mg tablets at bedtime Benign ess ential hypertension 7938920 I10 Type 1 [place] betes mellitus 95927543 E10.9 Chronic ob structive pulmonary disease 51548387 J44.9 Mixed hyperlipidemia 267 542469 E78.2 Dyspnea 879584525 R06.00 History of syncope 09093 38258 45625 Z86.79 [id number] Shubham Pineda MD [facility] [address] [address] 09/16/2024 14:58:36 09/16/2024 16:11:08 Chronic combined systolic and diastolic heart failure 6979835597 92761 I50.42 Benign ess ential hypertension 5505906 I10 Mixed hyperlipidemia 267 853155 E78.2 Chronic ob structive pulmonary disease 12280631 J44.9 Type 1 [place] betes mellitus 38921435 E10.9 Obstructiv e sleep apnea syndrome 42539745 G47.33 Syncope 264703813 R55 [id number] Shubham Pineda MD [facility] [address] [address] 10/19/2024 08:03:44 10/19/2024 10:50:35 Chronic combined systolic and diastolic heart failure 8166130828 18967 I50.42 STOP Entresto 0.5 tablets twice dailySTART losartan 12.5mg tablets in the AMContinue metoprolol succinate 12.5mg tablets at bedtime Benign ess ential hypertension 1021581 I10 Chronic ob structive pulmonary disease 57262008 J44.9 Mixed hyperlipidemia 267 001846 E78.2 Obstructiv e sleep apnea syndrome 45352415 G47.33 Type 1 [place] betes mellitus 92125209 E10.9 Increased thirst 7318794 03 R63.1 History of syncope 83849 42229 87082 Z86.79 [id number] Shubham Pineda MD [facility] [address] [address] 11/05/2024 14:36:23 11/05/2024 15:32:06 Chronic combined systolic and diastolic heart failure 8979288057 54677 I50.42 Chronic ob structive pulmonary disease 93811057 J44.9 Benign ess ential hypertension 5915691 I10 Type 1 [place] betes mellitus 64117365 E10.9 Mixed hyperlipidemia 267 718924 E78.2 Edema of l ower extremity 049508191 R60.0 [id number] Shubham Pineda MD [facility] [address] [address] 11/24/2024 12:34:31 11/24/2024 13:26:09 Chronic combined systolic and diastolic heart failure 3475231759 07905 I50.42 Benign ess ential hypertension 6472809 I10 Mixed hyperlipidemia 267 755521 E78.2 Obstructiv e sleep apnea syndrome 64452158 G47.33 Type 1 [place] betes mellitus 13169260 E10.9 Hyperkalemia 62885577 E8 7.5 [id number] Shubham Pineda MD [facility] [address] [address] 12/20/2024 15:06:18 12/20/2024 17:22:12 Benign essential hypertension 1295177 I10 STOP Losartan 50mg BIDSTART lisinopril 20mg tablets dailyConti nue spironolac tone 50mg tablets dailyConti nue metoprolol succinate 25mg tablets daily Chronic co mbined systolic and diastolic heart failure 5205248378 65780 I50.42 STOP Losartan 50mg BIDSTART lisinopril 20mg tablets dailyConti nue spironolac tone 50mg tablets dailyConti nue metoprolol succinate 25mg tablets dailyConti nue jardiance 10mg tablets daily Type 1 [place] betes mellitus 83822976 E10.9 Mixed hyperlipidemia 267 328372 E78.2 History of syncope 55159 09586 79452 Z86.79 Labile ess ential hypertension 623712758 I10 Fatigue 95211244 R53.83 Health Concerns Section Related Observation LastModified by Organization Detai ls LastModified Time None Recorded Concern Status LastModified by Organization Details LastModified Time None Recorded Advance Directives Directive N: Payers Encounter Date Sequence Insurance Name Policy Number Policy Rodriguez Covered Member ID Rodriguez Member ID Guarantor Name 09/16/2024 1 [place] [employer] Shubham Saucedo [id number] Shubham Saucedo 09/16/2024 2 [place] [facility] Shubham Saucedo [id number] Shubham Saucedo 10/19/2024 1 [place] [facility] Shubham Saucedo [id number] Shubham Saucedo 10/19/2024 2 [place] [facility] Shubham Sauceod [id number] Shubham Saucedo 11/05/2024 1 [place] [facility] Shubham Saucedo [id number] Shubham Saucedo 11/05/2024 2 [place] [facility]ced[facility] [id number] Shubham Saucedo 11/24/2024 1 [place]: [facility] Shubham Saucedo [id number] Shubham Saucedo 11/24/2024 2 [place] [facility] Shubham Saucedo [id number] Shubham Saucedo 12/20/2024 1 [place]: [facility] Shubham Saucedo [id number] Shubham Saucedo 12/20/2024 2 [place] [facility] Shubham Saucedo [id number] Shubham Saucedo Notes Date Note Type Note Provider Name and Address Organization Details Recorded Time 09/16/2024 text/html Shubham Saucedo i s presenting [...] ----Lipid (07/21/24)Stress (03/02/24)Echo (12/01/23) Cee Raygoza PA-C [address] [place] [address], [phone], [facility]. 09/19/2024 21:18:49 10/19/2024 text/html Shubham Saucedo i [...] 09/13 for which he went to the [facility] emergency room. His blood pressure [...] that he had discussed this with his jewel bearing facer aware that he was on this medication. [...] symptoms as well as follow-up with his jewel bearing facer. The patient then again contacted the office [...] was recommended to again follow-up with his jewel bearing facer as his symptoms may be related to his type 1 diabetes. We discussed reducing his Entresto to 0.5 tablets in the morning and a full tablet at bedtime to have an updated BMP and to stop taking Sudafed if that was something that he was taking as listed on his medication list. He was also recommended to schedule to have his lunchroom monitor placed as discussed at his last [...] edema. ----L 09/22/24S 03/02/24E 12/01/23 BOGDAN Tomlinson-Gabby [address] [place] [address], [phone], [facility] 10/19/2024 10:40:15 11/05/2024 text/html Shubham Saucedo i s presenting to the office for a follow up appointment. He has a past medical history of T1DM, HTN, chronic systolic and diastolic heart failure, HLD, SABRINA. His last appointment in our office was on [facility]/24 with [facility] as [facility]icine appointment. Today, Shubham feels [...] 03/02/24Echo 12/01/23Lipid 09/22/24 Cee Raygoza PA-C [address] [place], [address], [facility] 11/05/2024 17:21:32 11/24/2024 text/html Shubham ace presenting to the office for a 2-week follow up appointment. He has a past medical history of T1DM, HTN, chronic systolic and diastolic heart failure, HLD, SABRINA. His last appointment in our office was on 11/05/24 with [facility]. At this visit we discussed that Shubham [...] 130-140s systolic. He is allergic to the lunchroom monitor stickers and was only able to tolerate this for about 1 week. Denies shortness of breath, chest pain, headache, dizziness, light headedness, palpitations, syncope, near syncope, changes in vision, jaw pain, arm pain on exertion, numbness, weakness, orthopnea or sleeping with more pillows at night, lower extremity edema. ----Stress 03/02/24Echo 11/09/24Lipid 11/03/24Monitor placed on 11/09/24. Cee Raygoza PA-C [address] [place], [address], [facility]. 11/24/2024 14:23:41 12/20/2024 text/html Shubham Saucedo i s presenting for a post hospitalization appointment. He has a past medical history of T1DM, HTN, chronic systolic and diastolic heart failure, HLD, SABRINA. His last appointment in our office was on 11/24/24 with me. At this visit we discussed his blood pressure at home was under excellent control and we discussed his echo which revealed an improvement in his LVEF. He was unable to wear his 30 day monitor to assess for arrhythmia caused syncope secondary to an adhesive allergy and was not interested in loop monitoring. Today, Shubham feels well. He had another episode of syncope with hypotension which brought him to the ER in [place]. He states he taken a THC pill that day which is known to drop his blood pressure and was not well hydrated after working outdoors. On interview, he did have episodes of syncope prior to changing his medications to a cardiomyopathy regiment but stated this occurred only on the toilet secondary to straining. Denies shortness of breath, chest pain, headache, dizziness, light headedness, palpitations, changes in vision, jaw pain, arm pain on exertion, numbness, weakness, orthopnea or sleeping with more pillows at night, lower extremity edema. Cee Raygoza PA-C [address] [place], [address], [facility]. 12/21/2024 12:01:14
--- OUTSIDE RECORDS SUMMARY | 2024-12-29 11:58 | XMS_ITS | Clinical Summary ---
Author Organization [facility] Address [address] [place] [address] Care Team Providers Care Supervisor Assembly And Packing Name Role Phone Unavailable Primary Care Provider Unavailabl e Social History Tobacco Use Types Packs/Day Years Used Date Smoking Tobacco: Never Assessed Sex and Gender Information Value Date Recorded Sex Assigned at Not on file Legal Sex Male 11:52 AM EDT Gender Identity Not on file [...]
--- OUTSIDE RECORDS SUMMARY | 2024-12-29 11:58 | XMS_ITS | Clinical Summary ---
Author Organization [facility] Address [address] [place] [address] Care Team Providers Care Mat Inspector Name Role Phone Unavailable Primary Care Provider [...]
--- OUTSIDE RECORDS SUMMARY | 2024-12-29 11:58 | XMS_ITS | Continuity of Care Document ---
Author Organization [facility] Address [address] [place] [address] Phone [phone] Social History Type Date Description Comments Sex Unknown Medical Devices Description No Information Available Encounters Description No Information Available Assessments Description No Information Available Plan of Treatment No Information Available Functional Status Description No Information Available Mental Status Description No Information Available Referrals Description No Information Available
--- OUTSIDE RECORDS SUMMARY | 2024-12-29 11:59 | XMS_ITS | Clinical Summary ---
Author Organization [facility] Address [address] [place] [address] Phone Care Team Providers Care Machine Hoop Maker Name Role Phone Doretha Avilez MD Primary Care Provider [phone] Allergies Active Allergy Reactions Criticality Noted Date Comments Acetaminophen-Codeine 09/13/2024 Prochlorperazine 09/13/2024 Medications lisinopriL (PRINIVIL,ZESTRI L) 10 mg tablet TAKE 1 TABLET BY MOUTH DAILY. 90 tablet 3 09/08/2024 Active rosuvastatin (CRESTOR) 40 mg tablet TAKE ONE TABLET BY MOUTH ONCE DAILY 90 tablet 1 10/06/2024 Active Active Problems No known active problems Encounters Date Type Department Care Team Description 12/25/2024 Telephone [facility] Cardiology [address] [place] [phone] Fco Ford MD 12/11/2024 7:31 PM EDT - 12/12/2024 1:34 AM EDT Emergency Emergency [address] [place] [address] Jayson Whitten MD Orthostatic hypotension (Primary Dx); Near syncope Discharge Disposition: Home or Self Care from [...] lumbar DX:Degenerative disc disease, lumbar Diabetic neuropathy ([facility] V24, [facility] V28) DX:Diabetic neuropathy (HCC) Chronic low back pain DX:Chronic low back pain Migraine DX:Migraine Gastroparesis DX:Gastroparesis Depression DX:Depression Anxiety DX:Anxiety Hyperlipidemia LDL goal <100 DX: Hyperlipidemia LDL goal <100 HTN (hypertension), benign DX:HT N (hypertension), benign Asthma DX:Asthma Chronic painful diabetic kapil ropathy ([facility] V24, [facility] V28) DX:Chronic painful diabetic neuropathy (HCC) Gastroenteritis DX:Gastroenterit is Hx of hernia repair DX:Hx of her qing repair Obesity hypoventilation synd ike ([facility] V24, [facility] V28) DX:Obesity hypoventilation syndrome (HCC) Obstructive sleep apnea DX:Obstr uctive sleep apnea Insomnia DX:Insomnia 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 ([facility] V24, [facility] V28) DX:Controlled ty pe 1 diabetes with neuropathy ([facility]) GERD (gastroesophageal reflux disease) DX:GERD (gastroesophageal reflux disease) Lower extremity edema DX:Lower e xtremity edema 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 ([facility] V24, [facility] V28) DX:Type 1 diabet es mellitus with diabetic neuropathy (HCC) Morbid obesity with BMI of 6 0.0-69.9, adult ([facility] V24, [facility] V28) 05/08/2021 DX:Morbid obesity wit h BMI of 60.0-69.9, adult ([facility]) Charcot's joint of ankle, right 05/08/2021 DX:Charcot's joint of ankle, right Heart failure with preserved ejection fraction ([facility] V24, [facility] V28) 02/22/2021 DX:Heart failure w ith preserved ejection fraction (HCC); COMMENT: Hospitalized [facility] 09/2020 for hypoxic hypercarbic resp failure. Syncope [...] Sign Reading Time Taken Comments Blood Pressure 129/72 12/12/2024 1:32 AM EDT Pulse 72 12/12/2024 1:32 AM EDT Temperature 36.6 ??C (97.9 ??F) 12/11/2024 10:59 PM E DT Respiratory Rate 19 12/12/2024 1:32 AM EDT Oxygen Saturation 100% 12/12/2024 1:32 AM EDT Inhaled Oxygen Concentration - - Weight 104 kg (230 lb) 12/11/2024 7:57 PM EDT Height 182.9 cm (6') 12/11/2024 7:57 PM EDT Body Mass Index 31.19 12/11/2024 7:57 PM EDT Plan of Treatment Upcoming Encounters Date Type Department Care Team (Late st Contact Info) Description 01/12/2025 9:20 AM EDT Office Visit [facility] [address] [place] [address] Fco Ford MD [address] [place] [address] [address] [place] [address] Health Maintenance Due Date Last Done Comments [...] 10/28/2005 Diabetes: Annual GFR (Glomerular Filtration Rate) 12/11/2025 12/11/2024, 09/13/2024, 07/28/2024, Additional history exists Hypertension/CHF/CAD Annual BMP Blood Test 12/11/2025 12/11/2024, 09/13/2024, 07/28/2024, Additional history exists Cholesterol Screening (Lipid [...] Name Priority Date/Time Associated Diagnosis Comments ECG ANNOTATED 12/13/2024 POC GLUCOSE STAT 12/12/2024 1:06 AM EDT POCT GLUCOSE BLOOD Routine 12/12/2024 1: 02 AM EDT TROPONIN I HIGH SENSITIVITY STAT 12/11/2024 11:54 PM EDT TROPONIN I HIGH SENSITIVITY STAT 12/11/2024 10:38 PM EDT POCT GLUCOSE BLOOD Routine 12/11/2024 9: 21 PM EDT XR CHEST 2 VIEWS STAT 12/11/2024 9:12 PM EDT CBC WITH AUTO DIFFERENTIAL STAT 12/11/2024 8:21 PM EDT MAGNESIUM STAT 12/11/2024 8:21 PM EDT BASIC METABOLIC PANEL STAT 12/11/2024 8:21 PM EDT CBC AND DIFFERENTIAL STAT 12/11/2024 8:21 PM EDT ECG 12-LEAD STAT 12/11/2024 8:02 PM EDT POCT GLUCOSE BLOOD Routine 12/11/2024 7: 53 PM EDT from Last 3 Months Results * ECG-Annotated (12/13/2024) us Provider Onbase MD ECG ORDERABLES Final Result * (ABNORMAL) POCT glucose manually resulted (12/12/2024 1:06 AM EDT) Glucose POC 184(A) 70 - 110 mg/dL Blood Capillary blood specimen / Unknown 12/12/2024 1:06 AM EDT us Jayson Whitten MD POINT OF CARE TEST ENTER/EDIT O RDERABLES Final Result * (ABNORMAL) POCT Glucose, blood (12/12/2024 1:02 AM EDT) Only the most recent of3 resultswithin the time period is included. [facility] Glucose POCT 184(H) 70 - 100 mg/dL 12/12/2024 1:06 AM EDT [facility] Blood Capillary blood specimen / Unknown 12/12/2024 1:02 AM EDT 12/12/2024 1:07 AM EDT Jayson Whitten MD LAB POINT OF CARE TE ST DOCKED DEVICE UNSOLICITED RESULTS Final Result Performing Organization Address City/[facility] Co de Phone Number [facility] [address] [place] [address], [place] [phone] * Troponin I high sensitivity (12/11/2024 11:54 PM EDT) Only the most recent of2 resultswithin the time period is included. [facility] High Sensitivity Troponin I 11 <=79 ng/L LAB CHEMISTRY METHOD 12/12/2024 12:48 AM EDT [facility] Blood Venous blood specimen / Unknown Venipuncture / Unknown 12/11/2024 11:54 PM EDT 12/12/2024 12:19 AM EDT Narrative [facility] - 12/12/2024 12:48 AM EDT High levels of biotin in samples may falsely decrease hsTroponin values. ??Use caution when interpreting hsTroponin results in patients taking biotin who exhibit renal impairment (eGFR <60) or in patients taking more than 20 mg/day of biotin. Jyoti MCFADDEN LAB BLOOD ORDERABLES Final Resul t [facility] [address] [place] [address], [place] [phone] * XR Chest 2 Views (12/11/2024 9:12 PM EDT) Anatomical Region Laterality Modality Body Radiographic Falguni ging 12/12/2024 11:4 5 AM EDT Impressions 12/12/2024 11:46 AM EDT Impression: 1. Poor inspiration. 2. Stable cardiomegaly. 3. No active pulmonary process. Telerad PA ([id number]) -------- FINAL REPORT -------- Dictated By: Rody Marie Dictated Date: 12/12/2024 11:45 ET Assigned Physician: Rody Marie Reviewed and Electronically Signed By: Rody Marie Signed Date: 12/12/2024 11:46 ET Workstation ID: [id number] Transcribed By: Self Edit Transcribed Date: 12/12/2024 11:45 ET Narrative 12/12/2024 11:46 AM EDT History: Chest pain. Comparison: 01/13/24 Findings: Upright AP and lateral views of the chest. This is a poor inspiration. The cardiac silhouette remains enlarged. Hilar contours and pulmonary vascularity are within normal limits. The lungs are clear. The costophrenic angles are sharp. Multiple old, healed right rib fractures are again seen. Procedure Note Rody Marie MD - 12/12/2024 History: Chest pain. Comparison: 01/13/24 Findings: Upright AP and lateral views of the chest. This is a poor inspiration. The cardiac silhouette remains enlarged. Hilarcontours and pulmonary vascularity are within normal limits. The lungs areclear. The costophrenic angles are sharp. Multiple old, healed right rib fractures are again seen. IMPRESSION: Impression: 1. Poor inspiration. 2. Stable cardiomegaly. 3. No active pulmonary process. Telerad PA ([id number]) -------- FINAL REPORT -------- Dictated By: Rody Marie Dictated Date: 12/12/2024 11:45 ET Assigned Physician: Rody Marie Reviewed and Electronically Signed By: Rody Marie Signed Date: 12/12/2024 11:46 ET Workstation ID: [id number] Transcribed By: Self Edit Transcribed Date: 12/12/2024 11:45 ET us Scot Hai Whitten MD IMG XR PROCEDURES Final Result * (ABNORMAL) CBC auto differential (12/11/2024 8:21 PM EDT) WBC 10.3 4.8 - 10.8 K/mcL LAB HEMETOLOGY METHOD 12/11/2024 8:45 PM EDT [facility] RBC 4.60 4.50 - 5.50 M/mcL LAB HEMETOLOGY METHOD 12/11/2024 8:45 PM EDT [facility] Hemoglobin 14.1 13.5 - 17.5 g/dL LAB HEMETOLOGY METHOD 12/11/2024 8:45 PM EDT [facility] Hematocrit 41.6(L) 42.0 - 54.0 % LAB HEMETOLOGY METHOD 12/11/2024 8:45 PM EDT [facility] MCV 91.0 79.0 - 98.0 FL LAB HEMETOLOGY METHOD 12/11/2024 8:45 PM EDT [facility] MCH 30.9 27.0 - 32.0 pcg LAB HEMETOLOGY METHOD 12/11/2024 8:45 PM EDT [facility] MCHC 33.9 32.0 - 37.0 g/dL LAB HEMETOLOGY METHOD 12/11/2024 8:45 PM EDT [facility] RDW 12.1 11.0 - 15.0 % LAB HEMETOLOGY METHOD 12/11/2024 8:45 PM EDT [facility] Platelets 191 130 - 400 K/mcL LAB HEMETOLOGY METHOD 12/11/2024 8:45 PM EDT [facility] MPV 9.4 7.0 - 11.0 FL LAB HEMETOLOGY METHOD 12/11/2024 8:45 PM EDT [facility] NRBC 0.0 <1.0 % LAB HEMETOLOGY METHOD [facility] NR[facility] Absolute 0.00 <0.10 K/mcL LAB HEMETOLOGY METHOD 12/11/2024 8:45 PM EDT [facility] Neutrophils Relative 66.9 % LAB HEMETOLOGY METHOD 12/11/2024 8:45 PM EDT [facility] Lymphocytes Relative 22.1 % LAB HEMETOLOGY METHOD 12/11/2024 8:45 PM [facility] Monocytes Relative 9.7 % LAB HEMETOLOGY METHOD 12/11/2024 8:45 PM [facility] Eosinophils Relative 0.7 % LAB HEMETOLOGY METHOD [facility] Basophils Relative 0.2 % LAB HEMETOLOGY METHOD 12/11/2024 8:45 PM [facility] Immature Granulocytes Relative 0.4 % LAB HEMETOLOGY METHOD 12/11/2024 8:45 PM [facility] Neutrophils Absolute 6.88 1.50 - 7.00 K/mcL LAB HEMETOLOGY METHOD 12/11/2024 8:45 PM EDT [facility] Lymphocytes Absolute 2.27 1.00 - 5.00 K/mcL LAB HEMETOLOGY METHOD 12/11/2024 8:45 PM EDT [facility] Monocytes Absolute 1.00 0.20 - 1.00 K/mcL LAB HEMETOLOGY METHOD 12/11/2024 8:45 PM [facility] Eosinophils Absolute 0.07 0.00 - 0.50 K/mcL LAB HEMETOLOGY METHOD 12/11/2024 8:45 PM EDT [facility] Basophils Absolute 0.02 0.00 - 0.20 K/mcL LAB HEMETOLOGY METHOD 12/11/2024 8:45 PM EDT [facility] Immature Granulocytes Absolute 0.04(H) 0.00 - 0.03 K/mcL LAB HEMETOLOGY METHOD 12/11/2024 8:45 PM EDT [facility] Blood Venous blood specimen / Unknown Venipuncture / Unknown 12/11/2024 8:21 PM EDT 12/11/2024 8:33 PM EDT us Jayson Whitten MD LAB BLOOD ORDERABLES Final Resu lt Performing Organization Address [facility]/ZIP Co de Phone Number [facility] [address] [place] [address], [place] [phone] * Magnesium (12/11/2024 8:21 PM EDT) [facility] Magnesium 2.1 1.9 - 2.6 mg/dL LAB CHEMISTRY METHOD 12/11/2024 8:59 PM EDT [facility] Blood Venous blood specimen / Unknown Venipuncture / Unknown 12/11/2024 8:21 PM EDT 12/11/2024 8:33 PM EDT us Jayson Whitten MD LAB BLOOD ORDERABLES Final Resu lt Performing Organization Address City/[facility]/ZIP Co de Phone Number [facility] [address] [place] [address], [place] [phone] * (ABNORMAL) Basic metabolic panel (12/11/2024 8:21 PM EDT) Pathologist [facility] Sodium 131(L) 133 - 145 mmol/L LAB CHEMISTRY METHOD 12/11/2024 8:59 PM EDT [facility] Potassium 3.8 3.5 - 5.5 mmol/L LAB CHEMISTRY METHOD 12/11/2024 8:59 PM EDT [facility] Chloride 97 96 - 110 mmol/L LAB CHEMISTRY METHOD 12/11/2024 8:59 PM EDT [facility] CO2 28 21 - 32 mmol/L LAB CHEMISTRY METHOD 12/11/2024 8:59 PM EDT [facility] Anion Gap 6 3 - 11 LAB CHEMISTRY METHOD 12/11/2024 8:59 PM EDT [facility] Glucose 77 70 - 100 mg/dL LAB CHEMISTRY METHOD 12/11/2024 8:59 PM EDT [facility] BUN 19 5 - 25 mg/dL LAB CHEMISTRY METHOD 12/11/2024 8:59 PM EDT [facility] Creatinine 1.08 0.70 - 1.30 mg/dL LAB CHEMISTRY METHOD 12/11/2024 8:59 PM EDT [facility] eGFR 84 >=60 mL/min/1. 73m2 LAB CHEMISTRY METHOD 12/11/2024 8:59 PM EDT [facility] Comment:Calculation based on the??Chronic Kidney Disease Epidemiology Collaboration (CKD-EPI) equation refit??without adjustment for race. BUN/Creatinine Ratio 17.6 LAB CHEMISTRY METHOD 12/11/2024 8:59 PM EDT [facility] Calcium 8.7 8.5 - 10.5 mg/dL LAB CHEMISTRY METHOD 12/11/2024 8:59 PM EDT [facility] Blood Venous blood specimen / Unknown Venipuncture / Unknown 12/11/2024 8:21 PM EDT 12/11/2024 8:33 PM EDT us Jayson Whitten MD LAB BLOOD ORDERABLES Final Resu lt [facility] [address] [place] [address], * ECG 12 lead (12/11/2024 8:02 PM EDT) Ventricular Rate ECG 64 BPM GEMUSE Atrial Rate 64 BPM GEMUSE P-R Interval 172 ms GEMUSE QRS Duration 118 ms GEMUSE Q-T Interval 450 ms GEMUSE QTc 464 ms GEMUSE P Wave [place] 24 degrees GEMUSE R [place] -2 degrees GEMUSE T [place] 16 degrees GEMUSE ECG Interpretation Sinus rhythm with occasional Premature ventricular complexes Left ventricular hypertrophy with QRS widening Abnormal ECG When compared with ECG of 13-SEP-2024 11:24, Nonspecific T wave abnormality, improved in Inferior leads Nonspecific T wave abnormality, improved in Lateral leads Confirmed by Inessa WARNER JAMES ([id number]) on 12/13/2024 12:42:54 PM GEMUSE 12/11/2024 8:02 PM EDT 12/13/2024 12:42 PM EDT us Jayson Whitten MD ECG ORDERABLES Final Result GEMUSE from Last 3 Months Insurance MEDICARE MEDICAID - [place] Care Teams Machine Hoop Maker Relationship Specialty Start Date End Date Doretha Avilez MD [address] [place], [place] [id number] PCP - General 11/20/22
--- OUTSIDE RECORDS SUMMARY | 2024-12-29 11:59 | XMS_ITS | Clinical Summary ---
Author Organization [facility] Address [address] [address] Phone Care Team Providers Care Oil And Gas Drafter Name Role Phone Doretha Pablo MD Primary Care Provider [phone] Allergies Active Allergy Reactions Criticality Noted Date [...] Office Visit [facility] [address] [phone] Romario Gifford MD [address] [address] Health Maintenance Due Date Last [...] PCV20 or PCV21) 2025 06/21/2015, 08/27/2006, 10/28/2005 Procedures Procedure Name Priority Date/Time Associated Diagnosis Comments URINE ALBUMIN / CREATININE RATIO Routine 12/15/2024 1:32 PM EDT RENAL FUNCTION PANEL Routine 12/15/2024 1:32 PM EDT from Last 3 Months Results * Urine Albumin / Creatinine Ratio (12/15/2024 1:32 PM EDT) Creatinine, Ur 21.8 Not Estab. mg/dL [facility] Albumin, Urine <3.0 Not Estab. ug/mL [facility] Albumin/Creatin ine Ratio <14 0 - 29 mg/g creat [facility] Comment: ? Normal: ?0 - ??29 ? Moderately increased: 30 - 300 ? Severely increased: ? >300 12/15/2024 1:32 PM EDT 12/15/2024 Romario Gifford MD LAB URINE ORDERABLES Final Resul t [facility] [address] [place] [address] * Renal Function Panel (12/15/2024 1:32 PM EDT) Glucose 71 70 - 99 mg/dL [facility] BUN 16 6 - 24 mg/dL [facility] Creatinine 1.06 0.76 - 1.27 mg/dL [facility] eGFR CKD-EPI CR 2020 86 >59 mL/min/1.7 3 [facility] BUN/Creatinine Ratio 15 9 - 20 [facility] Sodium 138 134 - 144 mmol/L [facility] Potassium 4.9 3.5 - 5.2 mmol/L [facility] Chloride 99 96 - 106 mmol/L [facility] Bicarbonate (CO2) 27 20 - 29 mmol/L [facility] Calcium 9.7 8.7 - 10.2 mg/dL [facility] Albumin 4.3 4.1 - 5.1 g/dL [facility] Phosphorus 3.8 2.8 - 4.1 mg/dL [facility] 12/15/2024 1:32 PM EDT 12/15/2024 us Romario Gifford MD LAB BLOOD ORDERABLES Final Resul t [facility] [address] [place] [address] from Last 3 Months Insurance Medicaid [place] Medicare [place] Care Teams Oil And Gas Drafter Relationship Specialty Start Date End Date Doretha Pablo MD [address] [facility] [address] [place] [address] PCP - General Internal Medicine 08/28/23
== END 2024-12-29 11:18 | disposition home or self-care (01) ==
LOC: HO.HPS 10:41
PROVIDERS: PCP Internal Medicine; Visit Provider Internal Medicine
DX: G47.33 Obstructive sleep apnea (adult) (pediatric) (principal); J98.4 Other disorders of lung; J44.9 Chronic obstructive pulmonary disease, unspecified; J30.9 Allergic rhinitis, unspecified
CPT/HCPCS: 99213

== ENCOUNTER → 2024-12-29 10:40 | Outpatient (BNVA) | payer MEDICARE, MEDICAID, SELFPAY | PROVIDERS: PCP Internal Medicine; Visit Provider Internal Medicine | DX: G47.33 Obstructive sleep apnea (adult) (pediatric) (principal); J44.9 Chronic obstructive pulmonary disease, unspecified; J98.4 Other disorders of lung; J30.9 Allergic rhinitis, unspecified | CPT/HCPCS: 99212 ==

== ENCOUNTER 2025-01-21 08:35 | Outpatient (REF) | payer MEDICARE, MEDICAID, SELFPAY ==
--- OUTSIDE RECORDS SUMMARY | 2025-01-21 08:39 | XMS_ITS | Encounter Summary ---
Author Organization [facility] Address [address] [place] [address] Care Team Providers Care Supersonic Engineer Name Role Phone Doretha Avilez MD Primary Care Provider + [phone] Reason for Visit * Reason Comments Hypoglycemia Syncope * Auth/Cert (Routine) Specialty Diagnoses / Procedures Referred By Contdb t Referred To Contact Diagnoses Syncope Procedures / Carlos Huston MD [address] [place] [id number] Phone: tel: fax: [facility] Emergency [address] [place] [phone] Phone: tel: Referral ID Status Reason Start Date Expiration Date Visits Re quested Visits Authorized [id number] 1 1 Encounter Details Date Type Department Care Team (Latest Contact Info) Description 01/17/2025 5:09 PM EDT - 01/18/2025 11:36 AM EDT Hospital Encounter [facility] Urology Unit [address] [place] [address] Cortez May MD [address] [address] Carlos Huston MD [address] [place] [id number] Carolina Richards MD [address] [place] [phone] Brian Olivo MD [address] [place] [address] Nano Grover MD 294 [facility] [address] [place] [address] Intractable vomiting (Primary Dx); Hyponatremia; Hypomagnesemia; Hypoglycemia; Near syncope Discharge Disposition: Left Against Medical Advice Social History Tobacco Use Types Packs/Day Years Used Date Smoking Tobacco: Never Smokeless Tobacco: Never Alcohol Use Standard Drinks/Week Comments Never 0 (1 standard drink = 0.6 oz pur e alcohol) Interpersonal Safety Answer Date Record ed Physical Abuse 01/18/2025 Verbal Abuse 01/18/2025 Sex and Gender Information Value Date Recorded Sex Assigned at Male 09/13/2024 12:24 PM EST Legal Sex Male 12:24 PM EST Gender Identity Male 09/13/2024 12:24 PM EST Sexual Orientation Straight 09/13/2024 12 :24 PM EST documented as of this encounter Last Filed Vital Signs Vital Sign Reading Time Taken Comments Blood Pressure 120/66 01/18/2025 9:41 AM EDT Pulse 85 01/18/2025 9:41 AM EDT Temperature 36.6 ??C (97.9 ??F) 01/18/2025 9:41 AM ED T Respiratory Rate 14 01/18/2025 9:41 AM EDT Oxygen Saturation 100% 01/18/2025 9:41 AM EDT Inhaled Oxygen Concentration - - Weight 105 kg (231 lb) 01/18/2025 9:41 AM EDT Height 182.9 cm (6') 01/18/2025 8:19 AM EDT Body Mass Index 31.33 01/18/2025 8:19 AM EDT documented in this encounter Discharge Summaries * Nano Grover MD - 01/18/2025 11:31 AM EDT Images from the original note were not included. [place] DISCHARGE SUMMARY Patient Information Shubham Pappas : 1975 [49 y.o.] Admitting Provider Carlos Huston MD Discharge Provider Nano Grover MD, Nano Grover MD Primary Care Physician Doretha Avilez MD Admission Date 01/17/2025 Discharge Date 01/18/2025 Summary of Hospital Problems Primary Discharge Diagnosis: Syncope diabetes mellitus type 2 insulin-dependent Discharge Destination: Left AMA Code Status at Discharge: Full Code - Confirmed Hospital Course Summary Please review the admitting note from the PA this morning. I met the patient in the emergency room we discussed about labs blood sugar results electrolyte results. We discussed that overall lab work is improving, he will need to stay overnight for another 24 hours to make sure his blood sugars are stable we also discussed that we are holding spironolactone as most of his symptoms are due to dehydration since he was working outside in the yard was on diureticsand did not drink enough fluids. I also discussed with him that I will be calling [facility] endocrinology as he follows with Dr. 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 Patient decided to leave AMA. Follow-Up Instructions and Recommendations No follow-up provider specified. No discharge procedures on file. There are no outpatient Patient Instructions on file for this admission. Discharge Medications Your medication list ASK your doctor about these medications Instructions Last Dose Given Next Dose Due celecoxib 200 mg capsule Commonly known as: CeleBREX Take 1 capsule (200 mg total) by mouth 2 (two) times a day. erythromycin base 250 mg tablet Take 0.5 tablets (125 mg total) by mouth every 4 (four) hours if needed (stomach upset). inf form, glutaric aciduria I 13-475 gram-kcal/100 g powder Take by mouth. Jardiance 10 mg tablet Generic drug: empagliflozin Take 1 tablet (10 mg total) by mouth 1 (one) time each day. lisinopriL 20 mg tablet Commonly known as: PRINIVIL,ZESTRIL Take 1 tablet (20 mg total) by mouth 1 (one) time each day. pregabalin 150 mg capsule Commonly known as: LYRICA Take 1 capsule (150 mg total) by mouth 3 (three) times a day. rosuvastatin 40 mg tablet Commonly known as: CRESTOR TAKE ONE TABLET BY MOUTH ONCE DAILY spironolactone 50 mg tablet Commonly known as: ALDACTONE Take 1 tablet (50 mg total) by mouth 1 (one) time each day. Physical Exam at time of Discharge Physical Exam Constitutional: Appearance: Normal appearance. Comments: Appearing anxous HENT: Head: Normocephalic and atraumatic. Mouth/Throat: Mouth: Mucous membranes are moist. Pharynx: Oropharynx is clear. Eyes: Extraocular Movements: Extraocular movements intact. Pupils: Pupils are equal, round, and reactive to light. Cardiovascular: Rate and Rhythm: Normal rate and regular rhythm. Pulses: Normal pulses. Heart sounds: Normal heart sounds. Pulmonary: Effort: Pulmonary effort is normal. Breath sounds: Normal breath sounds. Abdominal: General: Abdomen is flat. Bowel sounds are normal. There is no distension. Palpations: Abdomen is soft. Tenderness: There is no abdominal tenderness. Musculoskeletal: General: Normal range of motion. Cervical back: Normal range of motion and neck supple. Right lower leg: No edema. Left lower leg: No edema. Skin: Capillary Refill: Capillary refill takes less than 2 seconds. Neurological: General: No focal deficit present. Mental Status: He is alert and oriented to person, place, and time. Mental status is at baseline. Motor: No weakness. Gait: Gait normal. Psychiatric: Mood and Affect: Mood normal. Behavior: Behavior normal. Vitals Visit Vitals BP 120/66 Pulse 85 Temp 36.6 ??C (97.9 ??F) Resp 14 Temp (24hrs), Av.7 ??C (98 ??F), Min:36.4 ??C (97.6 ??F), Max:37.1 ??C (98.7 ??F) Body mass index is 31.33 kg/m??. No results found for: PTWT , PTHT documented in this encounter Medications at Time of Discharge celecoxib (CeleBREX) 200 mg capsule Take 1 capsule (200 mg total) by mouth 2 (two) times a day. empagliflozin (Jardiance) 10 mg tablet Take 1 tablet (10 mg total) by mouth 1 (one) time each day. erythromycin base 250 mg tablet Take 0.5 tablets (125 mg total) by mouth every 4 (four) hours if needed (stomach upset). inf form, glutaric aciduria I 13-475 gram-kcal/100 g powder Take by mouth. lisinopriL (PRINIVIL,ZESTRIL ) 20 mg tablet Take 1 tablet (20 mg total) by mouth 1 (one) time each day. pregabalin (LYRICA) 150 mg capsule Take 1 capsule (150 mg total) by mouth 3 (three) times a day. rosuvastatin (CRESTOR) 40 mg tablet TAKE ONE TABLET BY MOUTH ONCE DAILY 90 tablet 1 10/06/2024 spironolactone (ALDACTONE) 50 mg tablet Take 1 tablet (50 mg total) by mouth 1 (one) time each day. documented as of this encounter Discharge Disposition Disposition Code Departure Means Destination Comment s Left Against Medical Advice documented in this encounter Progress Notes * Tori Frey RN - 01/18/2025 1:57 PM EDT 01/18/25 1356 Initial Transition Plan Initial Transition Plan Home Discharge Planning Living Arrangements Spouse/significant other Type of Residence Private residence Assistive Devices Eyeglasses Support Systems Spouse/significant other Medication Coverage Has Med Coverage Under Insurance Plan Yes Anticipated Discharge Needs Discipline following for SNF placement Tree Deadener Informed Choice Informed Choice Given? Yes Transportation Transportation at discharge Family What day is the transport expected? 01/18/25 Final Discharge Disposition Home or Self Care * May Almonte RN - 01/18/2025 5:23 AM EDT Pt began feeling lightheaded, states he was nauseous and seeing spots. BP: 87/53. Provider came to bedside. Pt given Zofran, repositioned, rechecked and BP: 102/72. Provider requested D5W 500mL bolus, followed by D5W @ 100mL/hr for five hours, then back to 75 mL/hr. Bolus currently infusing. Placedpt on bedpan per his request for BM however pt only had gas. Pt resting comfortably at this time, NAD noted, VSS. Bed in lowest/locked position, call [place] within reach of pt. * Renea Herman RN - 01/17/2025 7:26 PM EDT ED RN HANDOFF (All Miller Below Must Be Completed) Reason/Diagnosis for Admission: hypoglycemia , syncope Type of Admission: [] Medsurg, [x] Telemetry Already in a Hospital Bed: [] Yes / [x] No Room Considerations/Precautions (ex: fever, diarrhea, or any infectious concerns): [] Yes / [] No Computer Forwarding System Markup Clerk: [x] Yes / [] No If YES, Cardiac Rhythm: [x] NSR, [] SB, [] ST, [] A-FIB, [] A-Flutter, [] Pacemaker, [] 1st Degree HB, [] 2nd Degree HB, [] 3rd Degree HB Reason for Computer Forwarding System Markup Clerk: VS: Visit Vitals BP 130/86 (BP Location: Left arm, Patient Position: Sitting) Pulse 61 Temp 36.4 ??C (97.6 ??F) (Oral) Resp 23 SpO2 96% Smoking Status Never Current Mental Status: A/O x [x]4, []3, []2, []1 Current Ambulation Status: IV Access: [x] Yes / [] No Field IV present: [x] Yes / [] No Hx of Violence: [] Yes / [] No / [x] Unknown Fall Risk:[] Yes / [] No Yellow Bracelet Applied [] Yes / [] No Yellow Socks Applied [] Yes / [] No Patient Belongings inventoried and BL completed: [x] Yes / [] No Patient belongings stored in the security closet: [] Yes (If Yes please supply Security bag #): [] No Patient Medications stored in Pharmacy: [] Yes (If Yes please supply Medication Security bag #): [] No ED Summary of Care: Pmh dm, htn Pt was working outside during the day today, reports 1 hr ago started felt lightheaded dizzy and nauseous, bgl was noted 45. States he received glucagon IM X2 by his . Still felt dizzy and nauseous afterwards. Eventually moved inside and was found by ems on the toilet pale, diaphoretic, nauseous. Multiple episodes of vomiting enroute. EKG showed SB high 50s- SR, 120-140s SBP, 97% room air, poc starting at 166, and decreasing to 116,87 enroute, started on d10 by ems after 87 reading with 155 being the most recent. 18g LAC 8mg zofran, 500ml NACL, 2 gm of mag given @ ED. NS @ 125ml infusing. Normal sinus in monitor with HR 76. BS 143 @ 1728 Submitted by and Phone Extension: Renea, [phone] * Jazzy Fowler RN - 01/17/2025 5:16 PM EDT Pmh dm, htn Pt was working outside during the day today, reports 1 hr ago started felt lightheaded dizzy and nauseous, bgl was noted 45. States he received glucagon IM X2 by his . Still felt dizzy and nauseous afterwards. Eventually moved inside and was found by ems on the toilet pale, diaphoretic, nauseous. Multiple episodes of vomiting enroute. EKG showed SB high 50s- SR, 120-140s SBP, 97% room air, poc starting at 166, and decreasing to 116,87 enroute, started on d10 by ems after 87 reading with 155 being the most recent. 18g LAC * Cortez May MD - 01/17/2025 5:08 PM EDT Emergency Medicine Note Patient Name: Shubham Pappas Initial Evaluation: 01/17/2025 : 1975 Patient's PCP: Doretha Avilez MD Emergency Physician: Cortez May MD History of Present Illness Chief Complaint: Chief Complaint Patient presents with Hypoglycemia Syncope HPI: Is a 49-year-old type I diabetic male history of hypertension as well asthma Charcot foot coming in for dizziness weakness and hypoglycemia. 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 With an improvement in his blood sugar however EMS arrived and his blood sugar eventually dropped again into the 90s he was given D10. He is feeling nauseous he was dry heaving initially on arrival no chest pain no history of CAD. He is using insulin pump his freestyle wanda glucose meter is not correlating well. He feels extremely dehydrated and this happened several times before. ROS: I have performed a ROS with the pertinent positives and negatives documented in the history ofpresent illness. Previous History Past Medical History: Diagnosis Date Anxiety DX:Anxiety Asthma DX:Asthma Charcot's joint of ankle, right 05/08/2021 DX:Charcot's joint of ankle, right Chronic low back pain DX:Chronic low back pain Chronic painful diabetic neuropathy (CMS/HCC V24, CMS/HCC V28) DX:Chronic painful diabetic neuropathy (HCC) Controlled type 1 diabetes with neuropathy (CMS/HCC V24, CMS/HCC V28) DX:Controlled type 1 diabetes with neuropathy (HCC) Degenerative disc disease, lumbar DX:Degenerative disc disease, lumbar Depression DX:Depression Depression DX:Depression Diabetes (CMS/HCC V24, CMS/HCC V28) DX:Diabetes ([facility]) Diabetic neuropathy (CMS/HCC V24, CMS/HCC V28) DX:Diabetic neuropathy ([facility]) Gastroenteritis DX:Gastroenteritis Gastroparesis DX:Gastroparesis GERD (gastroesophageal reflux disease) 05/08/2021 DX:GERD (gastroesophageal reflux disease) Heart failure with preserved ejection fraction (CMS/HCC V24, CMS/HCC V28) 02/22/2021 DX:Heart failure with preserved ejection fraction ([facility]); COMMENT: Hospitalized [facility] 09/2020 for hypoxic hypercarbic resp failure. History of herniated intervertebral disc DX:History of herniated intervertebral disc HTN (hypertension) DX:HTN (hypertension) HTN (hypertension), benign DX:HTN (hypertension), benign Hx of hernia repair DX:Hx of hernia repair Hypercholesteremia DX:Hypercholesteremia Hyperlipidemia LDL goal <100 DX:Hyperlipidemia LDL goal <100 Insomnia DX:Insomnia Lower extremity edema DX:Lower extremity edema Migraine DX:Migraine Migraine DX:Migraine Morbid obesity with BMI of 60.0-69.9, adult (CMS/HCC V24, CMS/HCC V28) 05/08/2021 DX:Morbid obesity with BMI of 60.0-69.9, adult ([facility]) Neuropathy DX:Neuropathy;COMMENT:diabetic Obesity hypoventilation syndrome (CMS/HCC V24, CMS/[facility] V28) DX:Obesity hypoventilation syndrome (HCC) Obstructive sleep apnea DX:Obstructive sleep apnea Pain in joint involving ankle and foot 05/08/2021 DX:Pain in joint involving ankle and foot Syncope 02/23/2021 DX:Syncope Type 1 diabetes mellitus with diabetic neuropathy ([facility] V24, [facility] V28) DX:Type 1 diabetes mellitus with diabetic neuropathy ([facility]) Past Surgical History: Procedure Laterality Date HERNIA REPAIR PROCEDURE: HISTORICAL HERNIA REPAIR/UMB; COMMENT: as infant Social History Tobacco Use Smoking status: Never Smokeless tobacco: Never Substance Use Topics Alcohol use: Never Drug use: Never Family History Problem Relation Name Age of Onset No Known Problems Mother No Known Problems Father Other (Other: Cardiovascular disease) Mother Other (Other: Diabetes mellitus type 2) Father Other (Other: Diabetes mellitus type 2) Sister Other (Other: Cardiovascular disease) Maternal Grandmother Colon cancer Maternal Grandfather Other (Other: Diabetes mellitus type 1) Aunt Other (Other: lupus) Other cousin is allergic to acetaminophen-codeine and prochlorperazine. No current facility-administered medications on file prior to encounter. Current Outpatient Medications on File Prior to Encounter Medication Sig Dispense Refill celecoxib (CeleBREX) 200 mg capsule Take 1 capsule (200 mg total) by mouth 2 (two) times a day. empagliflozin (Jardiance) 10 mg tablet Take 1 tablet (10 mg total) by mouth 1 (one) time each day. erythromycin base 250 mg tablet Take 0.5 tablets (125 mg total) by mouth every 6 (six) hours. inf form, glutaric aciduria I 13-475 gram-kcal/100 g powder Take by mouth. lisinopriL (PRINIVIL,ZESTRIL) 20 mg tablet Take 1 tablet (20 mg total) by mouth 1 (one) time each day. pregabalin (LYRICA) 150 mg capsule Take 1 capsule (150 mg total) by mouth 2 (two) times a day. Max Daily Amount: 300 mg rosuvastatin (CRESTOR) 40 mg tablet TAKE ONE TABLET BY MOUTH ONCE DAILY 90 tablet 1 spironolactone (ALDACTONE) 50 mg tablet Take 1 tablet (50 mg total) by mouth 1 (one) time each day. [DISCONTINUED] lisinopriL (PRINIVIL,ZESTRIL) 10 mg tablet TAKE 1 TABLET BY MOUTH DAILY. (Patient not taking: Reported on 01/12/2025) 90 tablet 3 Physical Exam ED Triage Vitals Temp Pulse Resp BP -- -- -- -- SpO2 Temp src Heart Rate Source Patient Position -- -- -- -- BP Location FiO2 (%) -- -- General: Mildly ill-appearing, in GI distressd HEENT: PERRL, EOMI, external ears and nose appear unremarkable, airway is patent Neck: Supple, full range of motion, no meningismus, no JVD Chest: Clear to auscultation; no evidence of respiratory distress Circulatory: The rate and rhythm , no murmurs rubs or gallops Abdomen: Non-distended, Non-Tender Extremities: Normal ROM, No edema, ranging all extremities without difficulty Skin: Extremities are cool to touch decreased perfusion bilaterally extremities no rashes Neuro: Alert and oriented x 3. no motor or sensory deficits Psyche: Normal affect Results Labs Reviewed POCT GLUCOSE, BLOOD - Abnormal Result Value Glucose POCT 143 (*) COMPREHENSIVE METABOLIC PANEL CBC AND DIFFERENTIAL Narrative: The following orders were created for panel order CBC and differential. Procedure Abnormality Status --------- ------ CBC auto differential[[id number]] Please view results for these tests on the individual orders. TROPONIN I HIGH SENSITIVITY TROPONIN I HIGH SENSITIVITY MAGNESIUM CBC WITH AUTO DIFFERENTIAL Abnormal Labs Reviewed POCT GLUCOSE, BLOOD - Abnormal; Notable for the following components: Result Value Glucose POCT 143 (*) All other components within normal limits No orders to display I have discussed the incidental/abnormal imaging and/or lab abnormalities with the patient and haveinstructed them the need for further evaluation and workup with their primary care doctor. I have provided the patient with a paper copy of the abnormality. The laboratory results, imaging results and other diagnostic exam results were reviewed in the EMR. EKG Interpretation Patient's EKG shows a normal sinus rhythm at rate of 61 bpm mild left axis deviation no ST changes QTc is 437 ms. Some poor R wave progression Critical Care Time None ? Medical Decision Making Medications sodium chloride 0.9 % bolus 500 mL (has no administration in time range) ondansetron (PF) (ZOFRAN) injection 4 mg (has no administration in time range) ED Course as of 01/17/252030January 17, 2025 1828 Patient has significant left electrolyte abnormalities 1.6 and creatinine estimated 122. Giventhat he is vomiting and spironolactone and is having near syncope will likely admit for hydration. And syncope observation his EKG shows a normal sinus at 61 bpm with no significant ST changes. Mild intraventricular delay he continues to have intermittent retching despite Zofran. Patient is likely over diuresed with spironolactone. He may have had insensible loss of the working outside. Patient admitted for IV hydration and electrolyte repletion and adjustment of medications. [JL] 183 X-ray shows some mild vascular congestion we will gently hydrate. [JL] 1908 admit for hyponatremia, hypomagnesemia and near syncope. No ectopy and no significant prolonged QTc. Patient was required multiple doses of zofran [JL] ED Course User Index [JL] Cortez May MD Clinical Impressions as of 01/17/252030 Intractable vomiting Hyponatremia Hypomagnesemia Hypoglycemia Near syncope Procedures Procedures Diagnosis No diagnosis found. Disposition Data Unavailable ED Prescriptions None Physician Attestation Cortez May MD 01/17/25 172 Cortez May MD 01/17/25 183 Cortez May MD 01/17/252031 documented in this encounter H&P Notes * BOGDAN Leos - 01/17/2025 9:05 PM EDT Images from the original note were not included. [place] HISTORY AND PHYSICAL Please contact author [BOGDAN Leos] via [employer]. Patient: Shubham Pappas Admission Date/Time: 01/17/2025 5:09 PM : 1975 [49 y.o.] Patient's PCP: Doretha Avilez MD Attending Provider: Cortez May MD;Em* CHIEF COMPLAINT Weakness, N/V, hypoglycemia HISTORY OF PRESENT ILLNESS 49 year-old male with past medical history significant for Type 1 diabetes, CHF, hypertension, hyperlipidemia, COPD, obesity hypoventilation syndrome, SABRINA on CPAP, and further history below presents with weakness, nausea, and vomiting. Earlier today, pt went on a walk and did yard work outside. He felt dehydrated and states he drank around 20 water bottles of 16.9 oz. Pt began to feel weak, had nausea and vomiting. At that time, he states his pressure was 40/31 and the blood pressure cuff wasn't able to read his pressure anymore and his O2 sat was 84%. His blood sugar was noted to be 45 andhe received Glucagon IM twice. Pt with Dexcom and insulin pump which was reading a blood sugar of 160 at that time. Pt states while sitting on the toilet he was going in and out of consciousness, he did not fall as he was being held up by the bathroom railing. Per nursing note, EMS found pt on the toilet and he looked pale and diaphoretic. At that time his systolic bp was 120-140s, oxygen saturation at 97% RA, and POC decreased from 166 to 116 to 87 en route and EMS started pt on D10. Pt mentions he also took a THC pill in the morning which lowers his blood pressure and he feels like his Spironolactone 50 mg daily dehydrates him. Pt continues to feel weak with nausea and vomiting. He turnedhis insulin pump off at 1 pm as he believes the Dexcom is reading his blood sugars inaccurately andhe is receiving too much insulin. Otherwise, he denies chest pain, shortness of breath, fevers, chills, diarrhea, constipation, abdominal pain. dysuria, hematuria, hematochezia, melena. In ED, pt received 2 g IV magnesium, combined 8 mg IV Zofran, and about 1 L of normal saline. Pt was then admitted to the medicine team for further evaluation and treatment. Upon H&P, pt is afebrile, HR 86, RR 20, BP 115/64, spO2 98% RA. Labs: sodium 122, magnesium 1.6. EKG: normal sinus rhythm, 61 bpm, no acute ischemic changes CXR: Normal heart size without congestive heart failure. No consolidation or effusion. Review of Systems A 12 point review of system was completed and the pertinent positive/negatives are included in the HPI. MEDICAL HISTORY Past Medical History Past Medical History: Diagnosis Date Anxiety DX:Anxiety Asthma DX:Asthma Charcot's joint of ankle, right 05/08/2021 DX:Charcot's joint of ankle, right Chronic low back pain DX:Chronic low back pain Chronic painful diabetic neuropathy ([facility] V24, [facility] V28) DX:Chronic painful diabetic neuropathy (HCC) Controlled type 1 diabetes with neuropathy ([facility] V24, [facility] V28) DX:Controlled type 1 diabetes with neuropathy (HCC) Degenerative disc disease, lumbar DX:Degenerative disc disease, lumbar Depression DX:Depression Depression DX:Depression Diabetes ([facility] V24, [facility] V28) DX:Diabetes (HCC) Diabetic neuropathy ([facility] V24, [facility] V28) DX:Diabetic neuropathy (HCC) Gastroenteritis DX:Gastroenteritis Gastroparesis DX:Gastroparesis GERD (gastroesophageal reflux disease) 05/08/2021 DX:GERD (gastroesophageal reflux disease) Heart failure with preserved ejection fraction ([facility] V24, [facility] V28) 02/22/2021 DX:Heart failure with preserved ejection fraction ([facility]); COMMENT: Hospitalized [facility] 09/2020 for hypoxic hypercarbic resp failure. History of herniated intervertebral disc DX:History of herniated intervertebral disc HTN (hypertension) DX:HTN (hypertension) HTN (hypertension), benign DX:HTN (hypertension), benign Hx of hernia repair DX:Hx of hernia repair Hypercholesteremia DX:Hypercholesteremia Hyperlipidemia LDL goal <100 DX:Hyperlipidemia LDL goal <100 Insomnia DX:Insomnia Lower extremity edema DX:Lower extremity edema Migraine DX:Migraine Migraine DX:Migraine Morbid obesity with BMI of 60.0-69.9, adult ([facility] V24, [facility] V28) 05/08/2021 DX:Morbid obesity with BMI of 60.0-69.9, adult ([facility]) Neuropathy DX:Neuropathy;COMMENT:diabetic Obesity hypoventilation syndrome ([facility] V24, [facility] V28) DX:Obesity hypoventilation syndrome ([facility]) Obstructive sleep apnea DX:Obstructive sleep apnea Pain in joint involving ankle and foot 05/08/2021 DX:Pain in joint involving ankle and foot Syncope 02/23/2021 DX:Syncope Type 1 diabetes mellitus with diabetic neuropathy ([facility] V24, [facility] V28) DX:Type 1 diabetes mellitus with diabetic neuropathy (HCC) Past Surgical History Past Surgical History: Procedure Laterality Date HERNIA REPAIR PROCEDURE: HISTORICAL HERNIA REPAIR/UMB; COMMENT: as infant Social History reports that he has never smoked. He has never used smokeless tobacco. He reports that he does not drink alcohol and does not use drugs. Family History family history includes Colon cancer in his maternal grandfather; No Known Problems in his father and mother; Other: Cardiovascular disease in his maternal grandmother and mother; Other: Diabetes mellitus type 1 in his aunt; Other: Diabetes mellitus type 2 in his father and sister; Other: lupus in an other family member. Allergies is allergic to acetaminophen-codeine, prochlorperazine, and wellbutrin [bupropion hcl]. Home Medications No current facility-administered medications on file prior to encounter. Current Outpatient Medications on File Prior to Encounter Medication Sig Dispense Refill celecoxib (CeleBREX) 200 mg capsule Take 1 capsule (200 mg total) by mouth 2 (two) times a day. empagliflozin (Jardiance) 10 mg tablet Take 1 tablet (10 mg total) by mouth 1 (one) time each day. erythromycin base 250 mg tablet Take 0.5 tablets (125 mg total) by mouth every 4 (four) hours if needed (stomach upset). inf form, glutaric aciduria I 13-475 gram-kcal/100 g powder Take by mouth. lisinopriL (PRINIVIL,ZESTRIL) 20 mg tablet Take 1 tablet (20 mg total) by mouth 1 (one) time each day. pregabalin (LYRICA) 150 mg capsule Take 1 capsule (150 mg total) by mouth 3 (three) times a day. rosuvastatin (CRESTOR) 40 mg tablet TAKE ONE TABLET BY MOUTH ONCE DAILY (Patient taking differently: Take 1 tablet (40 mg total) by mouth at bedtime.) 90 tablet 1 spironolactone (ALDACTONE) 50 mg tablet Take 1 tablet (50 mg total) by mouth 1 (one) time each day. [DISCONTINUED] lisinopriL (PRINIVIL,ZESTRIL) 10 mg tablet TAKE 1 TABLET BY MOUTH DAILY. (Patient not taking: Reported on 01/12/2025) 90 tablet 3 OBJECTIVE Vitals Visit Vitals BP 115/64 (BP Location: Left arm, Patient Position: Lying) Pulse 86 Temp 37.1 ??C (98.7 ??F) (Oral) Resp 20 Temp (24hrs), Av.8 ??C (98.2 ??F), Min:36.4 ??C (97.6 ??F), Max:37.1 ??C (98.7 ??F) There is no height or weight on file to calculate BMI. No results found for: PTWT , PTHT Physical Examination General: Age appropriate, pleasant. No acute distress, although mildly anxious with intermittent retching. Laying comfortably on exam stretcher. Skin: Warm, dry, intact, no diaphoresis. HEENT: Atraumatic, normocephalic head, Patient is handling secretions without trismus or drooling. Speaking in full sentences. Neck: Soft/supple, full range of motion. No cervical spine tenderness noted. Cardiology: Regular rate and rhythm, no rubs or gallops, S1 and S2 auscultated. Respiratory: Clear to auscultation bilaterally, no wheezes, rales or rhonchi. No accessory muscle use, retractions or tripoding; speaking in full sentences without difficulties. Abdominal/GI: Abdomen is not distended, Normal bowel sounds, abdomen soft and non-tender. No CVA tenderness. Peripheral Vascular: No edema on lower legs. Radial pulse 2 + and Dorsalis Pedis 1+ bilaterally. Neurological: No focal deficit. CN II-XII grossly intact. Oyster Floater strength equal 5/5 bilateral upper extremities. Upper and lower extremities with strength 5/5 and equal bilaterally. Musculoskeletal: No calf tenderness or asymmetry. Moving all extremities at the major joint spaces without difficulty. Psychiatric: Cooperative, appropriate mood & affect. ECG: Was ECG Performed? Yes . Sinus Rhythm? Yes. Signs of acute ischemia? No Further Interpretation: normal sinus rhythm, 61 bpm, no acute ischemic changes LAB RESULTS (most recent) HEMATOLOGY Lab Results Component Value Date WBC 10.2 01/17/2025 HGB 13.1 (L) 01/17/2025 HCT 37.7 (L) 01/17/2025 MCV 91.1 01/17/2025 PLT 175 01/17/2025 CHEMISTRY Lab Results Component Value Date GLUCOSE 241 (H) 01/17/2025 NA 122 (L) 01/17/2025 K 3.9 01/17/2025 CO2 25 01/17/2025 CL 89 (L) 01/17/2025 BUN 18 01/17/2025 CREATININE 0.95 01/17/2025 EGFR 98 01/17/2025 CALCIUM 8.6 01/17/2025 MG 1.6 (L) 01/17/2025 ANIONGAP 8 01/17/2025 Radiology XR Chest 1 View Final Result FINDINGS/IMPRESSION: Normal heart size without congestive heart failure. No consolidation or effusion. -------- FINAL REPORT -------- Dictated By: Joesph Balderas Dictated Date: 01/17/2025 20:26 ET Assigned Physician: Joesph Balderas Reviewed and Electronically Signed By: Joesph Balderas Signed Date: 01/17/2025 20:27 ET Workstation ID: [id number] Transcribed By: Self Edit Transcribed Date: 01/17/2025 20:26 ET ASSESSMENT & PLAN Syncope Electrolyte abnormalities Dehydration Per chart review, it appears pt has been experiencing episodes of syncope since 2020 and was workedup with a Holter monitor around 2020 which did not show any evidence of sustained arrhythmias. It was noted all the episodes of syncope were associated with hypotension. - Admit to medicine - Monitor on telemetry - Gently hydrate with IV fluids - Trend BMP and monitor sodium & magnesium - Fall precautions - Orthostatic vital signs - Morning labs; CBCd, BMP, Mg Update: around 4:30 am pt states he began to experience his vision going in and out , did not loseconsciousness, at that time, BP 87/53, symptoms improved as bp increased Nausea Vomiting - Most likely secondary to above - Antiemetics as needed Hyponatremia - Trend sodium every 4 hours with goal of repletion 0.5 mEq/hr - Continue IV fluids Update: sodium increased from 122 to 124 (corrected for hyperglycemia: 124 and 126) - continued IV NS. At next BMP, sodium increased to 129 (corrected: 131)- fluids switched to D5W. 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 He does not feel comfortable keeping his pump on at this time as he believes the Dexcom is reading inaccurate sugars and the pump is providing too much insulin. We will provide him his insulin - Insulin sliding scale with PRN hypoglycemic protocol - Will give one time dose of 10 units Lantus tonight. If pt is hyperglycemic in the morning will need to increase his dose - Diabetic diet - Holding Jardiance as explained below Update: pt's glucose continued to be in the low 200 range. On repeat BMP anion gap increased from 8to 11 to 16. More labwork was added showing beta hydroxybutyrate of 44.4, VBG: pH 7.29, HCO32 18.8.Gave 5 units Lantus. Held discussion with and will hold off on Insulin drip at this time. Continue to monitor glucose. DDX euglycemic DKA secondary to Jardiance use? Update #2: Repeat morning labs with improvement of anion gap from 16 to 13 Hypotension Pt's BP's have been stable, then pt notified that his vision became spotty and vision was going inand out . At this time he was also attempting to have a bowel movement. BP noted to be 87/53 at this time. Slowly increased to systolic of 101. - Will give a 500cc bolus of D5W then continue D5W at a 100cc/hour rate - Continue to monitor blood pressure Abdominal pain - On initial exam, pt denied any abdominal pain and had no pain to tenderness. I did evaluate him 2more times throughout the night and he denied pain once again. Around 4:30 am, pt began to experience abdominal pain, had minimal discomfort on palpation. He stated he needs to have a bowel movement,was only able to pass gas, but does note improvement after. - If pt continues to have abdominal pain consider imaging Leukocytosis On arrival, WBC 10.2, then 13.7, and 12.8. Lactate 1.2. - UA abnormal although appears contaminated. Pt with no urinary symptoms. Urine culture pending. - Could possibly be reactive - Trend CBC Hyperkalemia Potassium 3.9, then 5.8 with repeat of 4.5. Elevated potassium may have been an error as the potassium improved although the pt has been receiving insulin. EKG was obtained not showing any changes. - Trend potassium CHF Pt appears dry and dehydrated, no edema on BLE, dry lips, CXR with no congestive heart failure. Pt denies any shortness of breath. Cardiac MRI 03/30/2024: Enlarged left ventricle with mild global hypokinesis of the left ventricle. LVEF mildly reduced at 46%. Repeat echo per Cardiology note from 11/24/24: shows improved LVEF of 60%, mild concentric LVH, no regional wall motion abnormalities, trace MR,trace TR, trace ID, stable mildly dilated ascending aorta at 4.0 cm. - Hold Spironolactone while pt is receiving IV fluids - Monitor fluid status, daily weights - Hold Jardiance. Pt is instructed to monitor his ketones daily given the risk of ketoacidosis withuse of Jardiance in pts with Type 1 Diabetes. He is using Jardiance mainly for his CHF. He did takehis Jardiance today. Will obtain urinalysis and if ketones are normal can continue Jardiance Update: will hold Jardiance- details above Hypertension - Continue Lisinopril - Pt self discontinued his Metoprolol because he has been having low blood pressures. Will continueto hold, monitor BP, and treat accordingly Update: Hold Lisinopril Hyperlipidemia - Continue Rosuvastatin Diabetic gastroparesis - Continue Erythromycin base (had to convert to formulary which we have in stock in our pharmacy. Pt aware he would need someone to bring in his med if he would like to take his formulary) Diabetic neuropathy - Continue Pregabalin Osteoarthritis - Continue Celecoxib Obesity hypoventilation syndrome COPD/bronchial asthma - Pt denies any shortness of breath - As needed albuterol SABRINA - Nocturnal CPAP - Advised pt against CPAP while actively vomiting. Pt no longer vomiting, mild nausea, adamant about wearing CPAP. States he will take the mask off he begins to feel increased nausea or vomiting Case discussed with Dr.Emmanuel Huston Admission checklist [x] Code status: Full Code - Confirmed [x] VTE Prophylaxis: SCDs [x] Diet order on admission: Dietary Orders (From admission, onward) Start Ordered 01/17/251931 Adult diet [facility]; General, Diabetic; Regular; 75 gm carb/Meal Diet effective now Question Answer Comment Location [facility] Diet Type (req) General Diet Type (req) Diabetic General Diet Regular Diabetic 75 gm carb/Meal 01/17/251930 [x] Medication reconciliation; per pt. Emergency contact: Nely gama; [phone] Cosigned by Carlos Huston MD at 01/18/2025 9:24 PM EDT Associated attestation - Carlos Huston MD - 01/18/2025 9:24 PM EDT This is a split/shared visit with BOGDAN Leos. I personally performed the medical decision making (MDM) for the care of this patient on 01/17/2025 as documented below Being hospitalized for syncope of unclear etiology needing further evaluation. 49-year-old man withmultiple medical problems including morbid obesity significant for sleep apnea managed with CPAP; type 1 diabetes managed with Dexcom and insulin; hypertension with hypertensive cardiomyopathy and heart failure; hyperlipidemia; and COPD is being hospitalized. EMS to the ED with ongoing generalized weakness, nausea with vomiting, and hyperglycemia. Additional findings include hyponatremia and dehydration. Ongoing management of hyperglycemia as well as hyponatremic hyponatremia is ongoing but is being hospitalized to continue hospital level evaluation into the clinical stabilization prior to discharge. Carlos Huston MD 01/18/25 9:23 PM EDT documented in this encounter Plan of Treatment Upcoming Encounters Date Type Department Care Team (Late st Contact Info) Description 04/26/2025 1:30 PM EDT Office Visit [facility] [address] [place] [address] Fco Ford MD [address] [place] [address] [address] [place] [address] documented as of this encounter Procedures Procedure Name Priority Date/Time Associated Diagnosis Comments ECG ANNOTATED 01/20/2025 POCT GLUCOSE BLOOD Routine 01/18/2025 11 :07 AM EDT B-TYPE NATRIURETIC PEPTIDE STAT 01/18/2025 8:09 AM EDT BASIC METABOLIC PANEL Timed 01/18/2025 8:09 AM EDT POCT GLUCOSE BLOOD Routine 01/18/2025 7: 44 AM EDT CBC WITH AUTO DIFFERENTIAL Routine 01/18/2025 5:19 AM EDT CBC AND DIFFERENTIAL Routine 01/18/2025 5:19 AM EDT MAGNESIUM Routine 01/18/2025 5:18 AM EDT BASIC METABOLIC PANEL Routine 01/18/2025 5:18 AM EDT POCT GLUCOSE BLOOD Routine 01/18/2025 4: 21 AM EDT POCT GLUCOSE BLOOD Routine 01/18/2025 3: 25 AM EDT BETA HYDROXYBUTYRATE Routine 01/18/2025 2:52 AM EDT CBC WITH AUTO DIFFERENTIAL Routine 01/18/2025 2:52 AM EDT CBC AND DIFFERENTIAL Routine 01/18/2025 2:52 AM EDT LACTATE Routine 01/18/2025 2:52 AM EDT VENOUS BLOOD GAS Routine 01/18/2025 2:52 AM EDT ACETAMINOPHEN LEVEL Timed 01/18/2025 2 :52 AM EDT SALICYLATE LEVEL Timed 01/18/2025 2:52 AM EDT ETHANOL Add-On 01/18/2025 1:19 AM EDT BASIC METABOLIC PANEL Routine 01/18/2025 1:19 AM EDT ECG 12-LEAD Routine 01/18/2025 12:00 AM EDT MAGNESIUM Routine 01/17/2025 9:46 PM EDT BASIC METABOLIC PANEL Routine 01/17/2025 9:46 PM EDT URINALYSIS WITH REFLEX MICROSCOPIC AND CULTURE Routine 01/17/2025 8:41 PM EDT BARAJAS URINE CULTURE TUBE Routine 01/18/20 8:41 PM EDT DRUG ABUSE SCREEN EXPANDED WITH REFLEX CONFIRMATION, URINE Add-On 01/17/2025 8:41 PM EDT ELECTROLYTES, URINE Routine 01/17/2025 8 :41 PM EDT CREATININE, URINE, RANDOM STAT 01/17/2025 8:41 PM EDT URINALYSIS WITH REFLEX MICROSCOPIC AND CULTURE Routine 01/17/2025 8:41 PM EDT CULTURE URINE Routine 01/17/2025 8:41 PM EDT CPAP NIV Routine 01/17/2025 8:33 PM EDT POCT GLUCOSE BLOOD Routine 01/17/2025 8: 00 PM EDT TROPONIN I HIGH SENSITIVITY STAT 01/17/2025 6:48 PM EDT XR CHEST 1 VIEW STAT 01/17/2025 5:53 PM EDT TROPONIN I HIGH SENSITIVITY STAT 01/17/2025 5:29 PM EDT CBC WITH AUTO DIFFERENTIAL STAT 01/17/2025 5:29 PM EDT CBC AND DIFFERENTIAL STAT 01/17/2025 5:29 PM EDT MAGNESIUM STAT 01/17/2025 5:29 PM EDT COMPREHENSIVE METABOLIC PANEL STAT 01/17/2025 5:29 PM EDT ECG 12-LEAD STAT 01/17/2025 5:28 PM EDT POCT GLUCOSE BLOOD Routine 01/17/2025 5: 19 PM EDT documented in this encounter Results * ECG-Annotated (01/20/2025) us Provider Onbase ECG ORDERABLES Final Result * (ABNORMAL) POCT Glucose, blood (01/18/2025 11:07 AM EDT) Pathologist [facility] Glucose POCT 187(H) 70 - 100 mg/dL 01/18/2025 11:[address] [facility] Blood Capillary blood specimen / Unknown 01/18/2025 11:07 AM EDT 01/18/2025 11:09 AM EDT us Nano Grover MD LAB POINT OF CARE TE ST DOCKED DEVICE UNSOLICITED RESULTS Final Result [facility] [address] [place] [address], [place] [phone] * (ABNORMAL) Basic metabolic panel (01/18/2025 8:09 AM EDT) [facility] Sodium 131(L) 133 - 145 mmol/L LAB CHEMISTRY METHOD 01/18/2025 8:38 AM [facility] Potassium 4.5 3.5 - 5.5 mmol/L LAB CHEMISTRY METHOD 01/18/2025 8:[address] [facility] Chloride 96 96 - 110 mmol/L LAB CHEMISTRY METHOD 01/18/2025 8:[address] [facility] CO2 23 21 - 32 mmol/L LAB CHEMISTRY METHOD 01/18/2025 8:[address] [facility] Anion Gap 12(H) 3 - 11 LAB CHEMISTRY METHOD 01/18/2025 8:38 AM [facility] Glucose 220(H) 70 - 100 mg/dL LAB CHEMISTRY METHOD 01/18/2025 8:[address] [facility] BUN 20 5 - 25 mg/dL LAB CHEMISTRY METHOD 01/18/2025 8:[address] [facility] Creatinine 1.26 0.70 - 1.30 mg/dL LAB CHEMISTRY METHOD 01/18/2025 8:[address] [facility] eGFR 70 >=60 mL/min/1. 73m2 LAB CHEMISTRY METHOD 01/18/2025 8:[address] [facility] Comment:Calculation based on the Chronic Kidney Disease Epidemiology Collaboration (CKD-EPI) equation refit without adjustment for race. BUN/Creatinine Ratio 15.9 LAB CHEMISTRY METHOD 01/18/2025 8:[address] [facility] Calcium 8.7 8.5 - 10.5 mg/dL LAB CHEMISTRY METHOD 01/18/2025 8:[address] [facility] Blood Venous blood specimen / Unknown Venipuncture / Unknown 01/18/2025 8:09 AM EDT 01/18/2025 8:15 AM EDT us Catia MCFADDEN LAB BLOOD ORDERABLES Final R esult Performing Organization Address City/[facility]/ZIP Co de Phone Number [facility] [address] [place] [address], * B-type natriuretic peptide (01/18/2025 8:09 AM EDT) BNP 27 <=100 pcg/mL LAB CHEMISTRY METHOD 01/18/2025 8:[address] [facility] Blood Venous blood specimen / Unknown Venipuncture / Unknown 01/18/2025 8:09 AM EDT 01/18/2025 8:15 AM EDT us Cortez May MD LAB BLOOD ORDERABLES Final Result [facility] [address] [place] [address], [place] [phone] * (ABNORMAL) POCT Glucose, blood (01/18/2025 7:44 AM EDT) [facility] Glucose POCT 211(H) 70 - 100 mg/dL 01/18/2025 7:[address] [facility] Blood Capillary blood specimen / Unknown 01/18/2025 7:44 AM EDT 01/18/2025 7:46 AM EDT Nano Grover MD LAB POINT OF CARE TE ST DOCKED DEVICE UNSOLICITED RESULTS Final Result [facility] [address] [place] [address], [place] [phone] * (ABNORMAL) CBC auto differential (01/18/2025 5:19 AM EDT) [facility] WBC 12.8(H) 4.8 - 10.8 K/mcL LAB HEMETOLOGY METHOD 01/18/2025 5:[address] [facility] RBC 4.30(L) 4.50 - 5.50 M/mcL LAB HEMETOLOGY METHOD 01/18/2025 5:30 AM [facility] Hemoglobin 13.4(L) 13.5 - 17.5 g/dL LAB HEMETOLOGY METHOD 01/18/2025 5:[address] [facility] Hematocrit 38.9(L) 42.0 - 54.0 % LAB HEMETOLOGY METHOD 01/18/2025 5:[address] [facility] MCV 90.7 79.0 - 98.0 FL LAB HEMETOLOGY METHOD 01/18/2025 5:30 AM [facility] MCH 31.2 27.0 - 32.0 pcg LAB HEMETOLOGY METHOD 01/18/2025 5:30 AM [facility] MCHC 34.4 32.0 - 37.0 g/dL LAB HEMETOLOGY METHOD 01/18/2025 5:[address] [facility] RDW 12.7 11.0 - 15.0 % LAB HEMETOLOGY METHOD 01/18/2025 5:30 AM [facility] Platelets 187 130 - 400 K/mcL LAB HEMETOLOGY METHOD 01/18/2025 5:30 AM [facility] MPV 9.3 7.0 - 11.0 FL LAB HEMETOLOGY METHOD 01/18/2025 5:30 AM [facility] NRBC 0.0 <1.0 % LAB HEMETOLOGY METHOD 01/18/2025 5:30 AM [facility] NRBC Absolute 0.00 <0.10 K/mcL LAB HEMETOLOGY METHOD 01/18/2025 5:30 AM [facility] Neutrophils Relative 78.0 % LAB HEMETOLOGY METHOD 01/18/2025 5:30 AM [facility] Lymphocytes Relative 12.9 % LAB HEMETOLOGY METHOD 01/18/2025 5:30 AM [facility] Monocytes Relative 8.4 % LAB HEMETOLOGY METHOD 01/18/2025 5:30 AM [facility] Eosinophils Relative 0.1 % LAB HEMETOLOGY METHOD 01/18/2025 5:30 AM [facility] Basophils Relative 0.2 % LAB HEMETOLOGY METHOD 01/18/2025 5:30 AM [facility] Immature Granulocytes Relative 0.4 % LAB HEMETOLOGY METHOD 01/18/2025 5:30 AM [facility] Neutrophils Absolute 9.96(H) 1.50 - 7.00 K/mcL LAB HEMETOLOGY METHOD 01/18/2025 5:[address] [facility] Lymphocytes Absolute 1.65 1.00 - 5.00 K/[facility] LAB HEMETOLOGY METHOD 01/18/2025 5:[address] [facility] Monocytes Absolute 1.07(H) 0.20 - 1.00 K/[facility] LAB HEMETOLOGY METHOD 01/18/2025 5:[address] [facility] Eosinophils Absolute 0.01 0.00 - 0.50 K/[facility] HEMETOLOGY METHOD 01/18/2025 5:[address] [facility] Basophils Absolute 0.02 0.00 - 0.20 K/[facility] HEMETOLOGY METHOD 01/18/2025 5:[address] [facility] Immature Granulocytes Absolute 0.05(H) 0.00 - 0.03 K/[facility] LAB HEMETOLOGY METHOD 01/18/2025 5:[address] [facility] Blood Venous blood specimen / Unknown Venipuncture / Unknown 01/18/2025 5:19 AM EDT 01/18/2025 5:26 AM EDT us Catia MCFADDEN LAB BLOOD ORDERABLES Final R esult [facility] [address] [place] [address], * Magnesium (01/18/2025 5:18 AM EDT) Magnesium 2.2 1.9 - 2.6 mg/dL LAB CHEMISTRY METHOD 01/18/2025 5:[address] [facility] Blood Venous blood specimen / Unknown Venipuncture / Unknown 01/18/2025 5:18 AM EDT 01/18/2025 5:26 AM EDT Catia MCFADDEN LAB BLOOD ORDERABLES Final R esult [facility] [address] [place] [address], * (ABNORMAL) Basic metabolic panel (01/18/2025 5:18 AM EDT) Sodium 129(L) 133 - 145 mmol/L LAB CHEMISTRY METHOD 01/18/2025 5:[address] [facility] Potassium 3.8 3.5 - 5.5 mmol/L LAB CHEMISTRY METHOD 01/18/2025 5:53 AM [facility] Chloride 96 96 - 110 mmol/L LAB CHEMISTRY METHOD 01/18/2025 5:53 AM [facility] CO2 20(L) 21 - 32 mmol/L LAB CHEMISTRY METHOD 01/18/2025 5:53 AM [facility] Anion Gap 13(H) 3 - 11 LAB CHEMISTRY METHOD 01/18/2025 5:53 AM [facility] Glucose 207(H) 70 - 100 mg/dL LAB CHEMISTRY METHOD 01/18/2025 5:53 AM [facility] BUN 22 5 - 25 mg/dL LAB CHEMISTRY METHOD 01/18/2025 5:53 AM [facility] Creatinine 1.16 0.70 - 1.30 mg/dL LAB CHEMISTRY METHOD 01/18/2025 5:53 AM [facility] eGFR 77 >=60 mL/min/1. 73m2 LAB CHEMISTRY METHOD 01/18/2025 5:53 AM [facility] Comment:Calculation based on the Chronic Kidney Disease Epidemiology Collaboration (CKD-EPI) equation refit without adjustment for race. BUN/Creatinine Ratio 19.0 LAB CHEMISTRY METHOD 01/18/2025 5:53 AM [facility] Calcium 8.6 8.5 - 10.5 mg/dL LAB CHEMISTRY METHOD 01/18/2025 5:53 AM [facility] Blood Venous blood specimen / Unknown Venipuncture / Unknown 01/18/2025 5:18 AM EDT 01/18/2025 5:26 AM EDT Catia MCFADDEN LAB BLOOD ORDERABLES Final R esult Performing Organization Address [facility]/ZIP Co de Phone Number [facility] [address] [place] [address], [place] [phone] * (ABNORMAL) POCT Glucose, blood (01/18/2025 4:21 AM EDT) Glucose POCT 210(H) 70 - 100 mg/dL 01/18/2025 4:[address] [facility] Blood Capillary blood specimen / Unknown 01/18/2025 4:21 AM EDT 01/18/2025 4:22 AM EDT Carolina Richards MD LAB POINT OF CARE T EST DOCKED DEVICE UNSOLICITED RESULTS Final Result Performing Organization Address [facility]/ZIP Co de Phone Number [facility] [address] [place] [address], [place] [phone] * (ABNORMAL) POCT Glucose, blood (01/18/2025 3:25 AM EDT) Glucose POCT 200(H) 70 - 100 mg/dL 01/18/2025 3:[address] [facility] Blood Capillary blood specimen / Unknown 01/18/2025 3:25 AM EDT 01/18/2025 3:27 AM EDT us Carolina Richards MD LAB POINT OF CARE T EST DOCKED DEVICE UNSOLICITED RESULTS Final Result Performing Organization Address City/[facility]/ZIP Co de Phone Number [facility] [address] [place] [address], [place] [phone] * (ABNORMAL) CBC auto differential (01/18/2025 2:52 AM EDT) [facility] WBC 13.7(H) 4.8 - 10.8 K/mcL LAB HEMETOLOGY METHOD 01/18/2025 3:04 AM [facility] RBC 4.30(L) 4.50 - 5.50 M/mcL LAB HEMETOLOGY METHOD 01/18/2025 3:04 AM [facility] Hemoglobin 13.2(L) 13.5 - 17.5 g/dL LAB HEMETOLOGY METHOD 01/18/2025 3:04 AM [facility] Hematocrit 39.0(L) 42.0 - 54.0 % LAB HEMETOLOGY METHOD 01/18/2025 3:04 AM [facility] MCV 90.5 79.0 - 98.0 FL LAB HEMETOLOGY METHOD 01/18/2025 3:04 AM [facility] MCH 30.6 27.0 - 32.0 pcg LAB HEMETOLOGY METHOD 01/18/2025 3:04 AM [facility] MCHC 33.8 32.0 - 37.0 g/dL LAB HEMETOLOGY METHOD 01/18/2025 3:04 AM [facility] RDW 12.7 11.0 - 15.0 % LAB HEMETOLOGY METHOD 01/18/2025 3:04 AM [facility] Platelets 176 130 - 400 K/mcL LAB HEMETOLOGY METHOD 01/18/2025 3:04 AM [facility] MPV 8.9 7.0 - 11.0 FL LAB HEMETOLOGY METHOD 01/18/2025 3:04 AM [facility] NRBC 0.0 <1.0 % LAB HEMETOLOGY METHOD 01/18/2025 3:04 AM [facility] NRBC Absolute 0.00 <0.10 K/mcL LAB HEMETOLOGY METHOD 01/18/2025 3:04 AM [facility] Neutrophils Relative 78.9 % LAB HEMETOLOGY METHOD 01/18/2025 3:04 AM [facility] Lymphocytes Relative 11.4 % LAB HEMETOLOGY METHOD 01/18/2025 3:04 AM [facility] Monocytes Relative 8.9 % LAB HEMETOLOGY METHOD 01/18/2025 3:04 AM [facility] Eosinophils Relative 0.1 % LAB HEMETOLOGY METHOD 01/18/2025 3:04 AM [facility] Basophils Relative 0.1 % LAB HEMETOLOGY METHOD 01/18/2025 3:04 AM [facility] Immature Granulocytes Relative 0.6 % LAB HEMETOLOGY METHOD 01/18/2025 3:04 AM [facility] Neutrophils Absolute 10.76(H) 1.50 - 7.00 K/mcL LAB HEMETOLOGY METHOD 01/18/2025 3:04 AM [facility] Lymphocytes Absolute 1.56 1.00 - 5.00 K/mcL LAB HEMETOLOGY METHOD 01/18/2025 3:04 AM [facility] Monocytes Absolute 1.22(H) 0.20 - 1.00 K/mcL LAB HEMETOLOGY METHOD 01/18/2025 3:04 AM [facility] Eosinophils Absolute 0.01 0.00 - 0.50 K/mcL LAB HEMETOLOGY METHOD 01/18/2025 3:04 AM [facility] Basophils Absolute 0.02 0.00 - 0.20 K/mcL LAB HEMETOLOGY METHOD 01/18/2025 3:04 AM [facility] Immature Granulocytes Absolute 0.08(H) 0.00 - 0.03 K/mcL LAB HEMETOLOGY METHOD 01/18/2025 3:[address] [facility] Blood Venous blood specimen / Unknown Venipuncture / Unknown 01/18/2025 2:52 AM EDT 01/18/2025 3:00 AM EDT Catia MCFADDEN LAB BLOOD ORDERABLES Final R esult Performing Organization Address City/[facility]/ZIP Co de Phone Number [facility] [address] [place] [address], [place] [phone] * Lactate (01/18/2025 2:52 AM EDT) Lactate 1.2 0.4 - 2.0 mmol/L LAB CHEMISTRY METHOD 01/18/2025 3:[address] [facility] Blood Venous blood specimen / Unknown Venipuncture / Unknown 01/18/2025 2:52 AM EDT 01/18/2025 3:00 AM EDT us Catia MCFADDEN LAB BLOOD ORDERABLES Final R esult Performing Organization Address [facility] de Phone Number [facility] [address] [place] [address], [place] [phone] * (ABNORMAL) Acetaminophen level (01/18/2025 2:52 AM EDT) Acetaminophen Level 2.0(L) 10.0 - 30.0 mcg/mL LAB CHEMISTRY METHOD 01/18/2025 3:[address] [facility] Blood Venous blood specimen / Unknown Venipuncture / Unknown 01/18/2025 2:52 AM EDT 01/18/2025 3:00 AM EDT Catia MCFADDEN LAB BLOOD ORDERABLES Final R esult Performing Organization Address City/[facility]/ZIP Co de Phone Number [facility] [address] [place] [address], [place] [phone] * (ABNORMAL) Venous blood gas (01/18/2025 2:52 AM EDT) pH, Yann 7.29(L) 7.32 - 7.42 pH 01/18/2025 3:[address] [facility] pCO2, Yann 39(L) 41 - 51 mmHg 01/18/2025 3:[address] [facility] pO2, Yann 47(H) 25 - 40 mmHg 01/18/2025 3:[address] [facility] HCO3, Venous 18.6(L) 22.0 - 26.0 mmol/L 01/18/2025 3:[address] [facility] O2 Sat, Yann 77.7 % 01/18/2025 3:[address] [facility] Base Excess, Yann -7.3(L) -2.0 - 2.0 mmol/L 01/18/2025 3:[address] [facility] Blood Venous blood specimen / Unknown Venipuncture / Unknown 01/18/2025 2:52 AM EDT 01/18/2025 3:00 AM EDT Catia MCFADDEN LAB BLOOD ORDERABLES Final R esult [facility] [address] [place] [address], [place] [phone] * (ABNORMAL) Beta hydroxybutyrate (01/18/2025 2:52 AM EDT) [facility] Beta-Hydroxyb utyrate 44.4(H) 0.2 - 2.8 mg/dL LAB CHEMISTRY METHOD 01/18/2025 3:[address] [facility] Blood Venous blood specimen / Unknown Venipuncture / Unknown 01/18/2025 2:52 AM EDT 01/18/2025 3:00 AM EDT Catia MCFADDEN LAB BLOOD ORDERABLES Final R esult Performing Organization Address City/[facility]/ZIP Co de Phone Number [facility] [address] [place] [address], [place] [phone] * (ABNORMAL) Salicylate level (01/18/2025 2:52 AM EDT) Salicylate Level <1.7(L) 2.0 - 29.0 mg/dL LAB CHEMISTRY METHOD 01/18/2025 3:[address] [facility] Blood Venous blood specimen / Unknown Venipuncture / Unknown 01/18/2025 2:52 AM EDT 01/18/2025 3:00 AM EDT Catia MCFADDEN LAB BLOOD ORDERABLES Final R esult Performing Organization Address [facility]/ZIP Co de Phone Number [facility] [address] [place] [address], [place] [phone] * Ethanol (01/18/2025 1:19 AM EDT) Ethanol Level 3 0 - 10 mg/dL LAB CHEMISTRY METHOD 01/18/2025 2:[address] [facility] Blood Venous blood specimen / Unknown Venipuncture / Unknown 01/18/2025 1:19 AM EDT 01/18/2025 1:26 AM EDT Catia MCFADDEN LAB BLOOD ORDERABLES Final R esult [facility] [address] [place] [address], [place] [phone] * (ABNORMAL) Basic metabolic panel (01/18/2025 1:19 AM EDT) Sodium 129(L) 133 - 145 mmol/L LAB CHEMISTRY METHOD 01/18/2025 1:54 AM [facility] Potassium 4.5 3.5 - 5.5 mmol/L LAB CHEMISTRY METHOD 01/18/2025 1:54 AM [facility] Chloride 96 96 - 110 mmol/L LAB CHEMISTRY METHOD 01/18/2025 1:54 AM [facility] CO2 17(L) 21 - 32 mmol/L LAB CHEMISTRY METHOD 01/18/2025 1:54 AM [facility] Anion Gap 16(H) 3 - 11 LAB CHEMISTRY METHOD 01/18/2025 1:54 AM [facility] Glucose 226(H) 70 - 100 mg/dL LAB CHEMISTRY METHOD 01/18/2025 1:54 AM [facility] BUN 20 5 - 25 mg/dL LAB CHEMISTRY METHOD 01/18/2025 1:54 AM [facility] Creatinine 1.03 0.70 - 1.30 mg/dL LAB CHEMISTRY METHOD 01/18/2025 1:54 AM [facility] eGFR 89 >=60 mL/min/1. 73m2 LAB CHEMISTRY METHOD 01/18/2025 1:54 AM [facility] Comment:Calculation based on the Chronic Kidney Disease Epidemiology Collaboration (CKD-EPI) equation refit without adjustment for race. BUN/Creatinine Ratio 19.4 LAB CHEMISTRY METHOD 01/18/2025 1:54 AM [facility] Calcium 8.5 8.5 - 10.5 mg/dL LAB CHEMISTRY METHOD 01/18/2025 1:54 AM [facility] Blood Venous blood specimen / Unknown Venipuncture / Unknown 01/18/2025 1:19 AM EDT 01/18/2025 1:26 AM EDT us Catia MCFADDEN LAB BLOOD ORDERABLES Final R esult Performing Organization Address [facility] Co de Phone Number [facility] [address] [place] [address], [place] [phone] * ECG 12 lead (01/18/2025 12:00 AM EDT) Pathologist [facility] Ventricular Rate ECG 90 BPM GEMUSE Atrial Rate 90 BPM GEMUSE P-R Interval 160 ms GEMUSE QRS Duration 100 ms GEMUSE Q-T Interval 386 ms GEMUSE QTc 472 ms GEMUSE P Wave [place] 57 degrees GEMUSE R [place] 46 degrees GEMUSE T [place] 19 degrees GEMUSE ECG Interpretation Normal sinus rhythm Poor R wave progression Abnormal ECG When compared with ECG of 17-JAN-2025 17:28, (unconfirmed) No significant change was found Confirmed by Inessa WARNER JAMES ([id number]) on 01/18/2025 3:54:30 PM GEMUSE 01/18/2025 12:0 0 AM EDT 01/18/2025 3:54 PM EDT Catia MCFADDEN ECG ORDERABLES Final Result Performing Organization Address [facility] Phone Number GEMUSE * Magnesium (01/17/2025 9:46 PM EDT) [facility] Magnesium 2.1 1.9 - 2.6 mg/dL LAB CHEMISTRY METHOD 01/17/2025 10:[address] [facility] Blood Venous blood specimen / Unknown Venipuncture / Unknown 01/17/2025 9:46 PM EDT 01/17/2025 9:54 PM EDT Catia MCFADDEN LAB BLOOD ORDERABLES Final R esult Performing Organization Address [facility] Co de Phone Number [facility] [address] [place] [address], [place] [phone] * (ABNORMAL) Basic metabolic panel (01/17/2025 9:46 PM EDT) Sodium 124(L) 133 - 145 mmol/L LAB CHEMISTRY METHOD 01/17/2025 10:37 PM [facility] Potassium 5.8(H) 3.5 - 5.5 mmol/L LAB CHEMISTRY METHOD 01/17/2025 10:37 PM [facility] Chloride 91(L) 96 - 110 mmol/L LAB CHEMISTRY METHOD 01/17/2025 10:37 PM [facility] CO2 22 21 - 32 mmol/L LAB CHEMISTRY METHOD 01/17/2025 10:37 PM [facility] Anion Gap 11 3 - 11 LAB CHEMISTRY METHOD 01/17/2025 10:37 PM [facility] Glucose 254(H) 70 - 100 mg/dL LAB CHEMISTRY METHOD 01/17/2025 10:37 PM [facility] BUN 19 5 - 25 mg/dL LAB CHEMISTRY METHOD 01/17/2025 10:37 PM [facility] Creatinine 0.93 0.70 - 1.30 mg/dL LAB CHEMISTRY METHOD 01/17/2025 10:37 PM [facility] eGFR 101 >=60 mL/min/1. 73m2 LAB CHEMISTRY METHOD 01/17/2025 10:37 PM [facility] Comment:Calculation based on the Chronic Kidney Disease Epidemiology Collaboration (CKD-EPI) equation refit without adjustment for race. BUN/Creatinine Ratio 20.4 LAB CHEMISTRY METHOD 01/17/2025 10:37 PM [facility] Calcium 8.4(L) 8.5 - 10.5 mg/dL LAB CHEMISTRY METHOD 01/17/2025 10:37 PM [facility] Blood Venous blood specimen / Unknown Venipuncture / Unknown 01/17/2025 9:46 PM EDT 01/17/2025 9:54 PM EDT us Catia MCFADDEN LAB BLOOD ORDERABLES Final R esult [facility] [address] [place] [address], * Drug abuse screen expanded with reflex confirmation, urine (01/17/2025 8:41 PM EDT) Amphetamine Screen, Ur Negative Negative LAB CHEMISTRY METHOD 01/18/2025 7:[address] [facility] Comment:Certain OTC medicati ons containing ephedrine, phenylephrine, pseudoephedrine and phenylpropanolamine can cause false positive results. Barbiturate Screen, Ur Negative Negative LAB CHEMISTRY METHOD 01/18/2025 7:[address] [facility] Benzodiazepine Screen, Ur Negative Negative LAB CHEMISTRY METHOD 01/18/2025 7:[address] [facility] Cocaine Screen, Ur Negative Negative LAB CHEMISTRY METHOD 01/18/2025 7:[address] [facility] Opiate Screen, Ur Negative Negative LAB CHEMISTRY METHOD 01/18/2025 7:[address] [facility] Cannabinoid (THC) Screen, Ur Negative Negative LAB CHEMISTRY METHOD 01/18/2025 7:[address] [facility] Comment:Specimens from patie nts taking pantoprazole sodium (Protonix) have been shown to produce false positive results. Fentanyl, Ur Negative Negative LAB CHEMISTRY METHOD 01/18/2025 7:[address] [facility] Oxycodone Screen, Ur Negative Negative LAB CHEMISTRY METHOD 01/18/2025 7:18 AM [facility] Urine Urine specimen from urethra / Unknown Non-blood Collection / Unknown 01/17/2025 8:41 PM EDT 01/17/2025 9:[address] [facility] - 01/18/2025 7:18 AM EDT Assay cutoffs: Amphetamines ? 1000 ng/mL Barbiturates ?200 ng/mL Benzodiazepines ?? 200 ng/mL Cocaine ? 300 ng/mL Fentanyl ?1 ng/mL Opiates ? 300 ng/mL Oxycodone ? 100 ng/mL THC ?50 ng/mL Semi-quantitative assay for screening purposes only. Unconfirmed screening result should not be used for non-medical purposes. *POSITIVE RESULTS ARE AUTOMATICALLY SENT FOR ALTERNATE METHOD CONFIRMATION* Catia MCFADDEN LAB URINE ORDERABLES Final R esult Performing Organization Address [facility] Co de Phone Number [facility] [address] [place] [address], [place] [phone] * Culture urine (01/17/2025 8:41 PM EDT) Culture, Urine 10,000-49,000 CFU/mL Mixed bacterial morphotypes present suggestive of possible contamination during collection. Suggest appropriate recollection if clinically indicated. 01/19/2025 11:[address] [facility] Urine Urine specimen obtained by clean catch procedure / Unknown Non-blood Collection / Unknown 01/17/2025 8:41 PM EDT 01/17/2025 10:03 PM EDT Catia MCFADDEN LAB MICROBIOLOGY - GENERAL O RDERABLES Final Result Performing Organization Address [facility]/ZIP Co de Phone Number [facility] [address] [place] [address], [place] [phone] * Creatinine, urine, random (01/17/2025 8:41 PM EDT) Creatinine, Urine 289.0 mg/dL LAB CHEMISTRY METHOD 01/17/2025 9:[address] [facility] Urine Urine specimen from urethra / Unknown Non-blood Collection / Unknown 01/17/2025 8:41 PM EDT 01/17/2025 9:13 PM EDT Catia MCFADDEN LAB URINE ORDERABLES Final R esult Performing Organization Address [facility]/ZIP Co de Phone Number [facility] [address] [place] [address], [place] [phone] * Electrolytes, urine (01/17/2025 8:41 PM EDT) Sodium, Ur 112 mmol/L LAB CHEMISTRY METHOD 01/17/2025 9:[address] [facility] Chloride, Ur 160 mmol/L LAB CHEMISTRY METHOD 01/17/2025 9:[address] [facility] Potassium, Ur 55.0 mmol/L LAB CHEMISTRY METHOD 01/17/2025 9:[address] [facility] Urine Urine specimen from urethra / Unknown Non-blood Collection / Unknown 01/17/2025 8:41 PM EDT 01/17/2025 9:13 PM EDT Catia MCFADDEN LAB URINE ORDERABLES Final R esult Performing Organization Address City/[facility]/ZIP Co de Phone Number [facility] [address] [place] [address], [place] [phone] * [place] urine culture tube (01/17/2025 8:41 PM EDT) Extra Tube Hold for add-ons. 01/17/2025 11:[address] [facility] Comment:Auto resulted. Urine Urine specimen obtained by clean catch procedure / Unknown Non-blood Collection / Unknown 01/17/2025 8:41 PM EDT 01/17/2025 9:13 PM EDT us Catia MCFADDEN LAB URINE ORDERABLES Final R esult [facility] [address] [place] [address], [place] [phone] * (ABNORMAL) Urinalysis with reflex microscopic and culture (01/17/2025 8:41 PM EDT) Specific Sulphur Urine 1.021 1.003 - 1.030 LAB URINALYSIS - AUTOMATED METHOD 01/17/2025 10:06 PM [facility] pH, Urine 5.5 5.0 - 8.0 pH LAB URINALYSIS - AUTOMATED METHOD 01/17/2025 10:06 PM [facility] Leukocytes, Urine Small(A) Negative LAB URINALYSIS - AUTOMATED METHOD 01/17/2025 10:06 PM [facility] Nitrite, Urine Negative Negative LAB URINALYSIS - AUTOMATED METHOD 01/17/2025 10:06 PM [facility] Protein, Urine Trace <=Trace mg/dL LAB URINALYSIS - AUTOMATED METHOD 01/17/2025 10:06 PM [facility] Glucose, Urine Negative Negative mg/dL LAB URINALYSIS - AUTOMATED METHOD 01/17/2025 10:06 PM [facility] Ketones, Urine Trace(A) Negative mg/dL LAB URINALYSIS - AUTOMATED METHOD 01/17/2025 10:06 PM [facility] Urobilinogen, Urine 1.0 0.2 - 1.0 mg/dL LAB URINALYSIS - AUTOMATED METHOD 01/17/2025 10:06 PM [facility] Bilirubin, Urine Negative Negative LAB URINALYSIS - AUTOMATED METHOD 01/17/2025 10:06 PM [facility] Blood, Urine Negative Negative LAB URINALYSIS - AUTOMATED METHOD 01/17/2025 10:06 PM [facility] RBC, Urine 4.0 0 - 4 /HPF LAB URINALYSIS - AUTOMATED METHOD 01/17/2025 10:[address] [facility] WBC, Urine 15.4(H) 0 - 4 /HPF LAB URINALYSIS - AUTOMATED METHOD 01/17/2025 10:[address] [facility] Squamous Epithelial, Urine >100(H) 0 - 60 /LPF LAB URINALYSIS - AUTOMATED METHOD 01/17/2025 10:[address] [facility] Bacteria, Urine Many(A) Negative /HPF LAB URINALYSIS - AUTOMATED METHOD 01/17/2025 10:[address] [facility] Hyaline Casts, Urine 10.0(H) 0 - 3 /LPF LAB URINALYSIS - AUTOMATED METHOD 01/17/2025 10:[address] [facility] Urine Urine specimen obtained by clean catch procedure / Unknown Non-blood Collection / Unknown 01/17/2025 8:41 PM EDT 01/17/2025 9:13 PM EDT us Catia MCFADDEN LAB URINE ORDERABLES Final R esult Performing Organization Address [facility]/State/ZIP Co de Phone Number [facility] [address] [place] [address], * (ABNORMAL) POCT Glucose, blood (01/17/2025 8:00 PM EDT) Glucose POCT 241(H) 70 - 100 mg/dL 01/17/2025 8:[address] [facility] Blood Capillary blood specimen / Unknown 01/17/2025 8:00 PM EDT 01/17/2025 8:02 PM EDT us Carolina Richards MD LAB POINT OF CARE T EST DOCKED DEVICE UNSOLICITED RESULTS Final Result [facility] [address] [place] [address], * Troponin I high sensitivity (01/17/2025 6:48 PM EDT) High Sensitivity Troponin I 11 <=79 ng/L LAB CHEMISTRY METHOD 01/17/2025 7:[address] [facility] Blood Venous blood specimen / Unknown Venipuncture / Unknown 01/17/2025 6:48 PM EDT 01/17/2025 7:[address] [facility] - 01/17/2025 7:36 PM EDT High levels of biotin in samples may falsely decrease hsTroponin values. ??Use caution when interpreting hsTroponin results in patients taking biotin who exhibit renal impairment (eGFR <60) or in patients taking more than 20 mg/day of biotin. Cortez May MD LAB BLOOD ORDERABLES Final Result [facility] [address] [place] [address], * XR Chest 1 View (01/17/2025 5:53 PM EDT) Anatomical Region Laterality Modality Body Radiographic Falguni ging 01/17/2025 8:26 PM EDT Impressions 01/17/2025 8:27 PM EDT FINDINGS/IMPRESSION: Normal heart size without congestive heart failure. ??No consolidation or effusion. -------- FINAL REPORT -------- Dictated By: Joesph Balderas Dictated Date: 01/17/2025 20:26 ET Assigned Physician: Joesph Balderas Reviewed and Electronically Signed By: Joesph Balderas Signed Date: 01/17/2025 20:27 ET Workstation ID: [id number] Transcribed By: Self Edit Transcribed Date: 01/17/2025 20:26 ET Narrative 01/17/2025 8:27 PM EDT XR CHEST 1 VIEW INDICATION: general weakness TECHNIQUE: XR CHEST 1 VIEW COMPARISON: No priors available. Procedure Note Joesph Balderas MD - 01/17/2025 XR CHEST 1 VIEW INDICATION: general weakness TECHNIQUE: XR CHEST 1 VIEW COMPARISON: No priors available. IMPRESSION: FINDINGS/IMPRESSION: Normal heart size without congestive heart failure.No consolidation or effusion. -------- FINAL REPORT -------- Dictated By: Joesph Balderas Dictated Date: 01/17/2025 20:26 ET Assigned Physician: Joesph Balderas Reviewed and Electronically Signed By: Joesph Balderas Signed Date: 01/17/2025 20:27 ET Workstation ID: [id number] Transcribed By: Self Edit Transcribed Date: 01/17/2025 20:26 ET Cortez May MD IMG XR PROCEDURES Final Res ult * (ABNORMAL) CBC auto differential (01/17/2025 5:29 PM EDT) WBC 10.2 4.8 - 10.8 K/mcL LAB HEMETOLOGY METHOD 01/17/2025 5:[address] [facility] RBC 4.10(L) 4.50 - 5.50 M/mcL LAB HEMETOLOGY METHOD 01/17/2025 5:[address] [facility] Hemoglobin 13.1(L) 13.5 - 17.5 g/dL LAB HEMETOLOGY METHOD 01/17[facility]2025 5:[facility] Hematocrit 37.7(L) 42.0 - 54.0 % LAB HEMETOLOGY METHOD 01/17/2025 5:[address] [facility] MCV 91.1 79.0 - 98.0 FL LAB HEMETOLOGY METHOD 01/17/2025 5:53 PM [facility] MCH 31.6 27.0 - 32.0 pcg LAB HEMETOLOGY METHOD 01/17/2025 5:53 PM [facility] MCHC 34.7 32.0 - 37.0 g/dL LAB HEMETOLOGY METHOD 01/17/2025 5:53 PM [facility] RDW 12.4 11.0 - 15.0 % LAB HEMETOLOGY METHOD 01/17/2025 5:53 PM [facility] Platelets 175 130 - 400 K/mcL LAB HEMETOLOGY METHOD 01/17/2025 5:53 PM [facility] MPV 9.1 7.0 - 11.0 FL LAB HEMETOLOGY METHOD 01/17/2025 5:53 PM [facility] NRBC 0.0 <1.0 % LAB HEMETOLOGY METHOD 01/17/2025 5:53 PM [facility] NRBC Absolute 0.00 <0.10 K/mcL LAB HEMETOLOGY METHOD 01/17/2025 5:53 PM [facility] Neutrophils Relative 72.4 % LAB HEMETOLOGY METHOD 01/17/2025 5:53 PM [facility] Lymphocytes Relative 19.4 % LAB HEMETOLOGY METHOD 01/17/2025 5:53 PM [facility] Monocytes Relative 7.0 % LAB HEMETOLOGY METHOD 01/17/2025 5:53 PM [facility] Eosinophils Relative 0.5 % LAB HEMETOLOGY METHOD 01/17/2025 5:53 PM [facility] Basophils Relative 0.2 % LAB HEMETOLOGY METHOD 01/17/2025 5:53 PM [facility] Immature Granulocytes Relative 0.5 % LAB HEMETOLOGY METHOD 01/17/2025 5:53 PM [facility] Neutrophils Absolute 7.37(H) 1.50 - 7.00 K/mcL LAB HEMETOLOGY METHOD 01/17/2025 5:53 PM [facility] Lymphocytes Absolute 1.97 1.00 - 5.00 K/mcL LAB HEMETOLOGY METHOD 01/17/2025 5:[address] [facility] Monocytes Absolute 0.71 0.20 - 1.00 K/[facility] HEMETOLOGY METHOD 01/17/2025 5:[address] [facility] Eosinophils Absolute 0.05 0.00 - 0.50 K/[facility] HEMETOLOGY METHOD 01/17/2025 5:[address] [facility] Basophils Absolute 0.02 0.00 - 0.20 K/[facility] HEMETOLOGY METHOD 01/17/2025 5:[address] [facility] Immature Granulocytes Absolute 0.05(H) 0.00 - 0.03 K/[facility] HEMETOLOGY METHOD 01/17/2025 5:[address] [facility] Blood Venous blood specimen / Unknown Venipuncture / Unknown 01/17/2025 5:29 PM EDT 01/17/2025 5:47 PM EDT Cortez May MD LAB BLOOD ORDERABLES Final Result [facility] [address] [place] [address], * (ABNORMAL) Magnesium (01/17/2025 5:29 PM EDT) Magnesium 1.6(L) 1.9 - 2.6 mg/dL LAB CHEMISTRY METHOD 01/17/2025 6:[address] [facility] Blood Venous blood specimen / Unknown Venipuncture / Unknown 01/17/2025 5:29 PM EDT 01/17/2025 5:47 PM EDT us Cortez May MD LAB BLOOD ORDERABLES Final Result [facility] [address] [place] [address], [place] [phone] * Troponin I high sensitivity (01/17/2025 5:29 PM EDT) [facility] High Sensitivity Troponin I 9 <=79 ng/L LAB CHEMISTRY METHOD 01/17/2025 6:[address] [facility] Blood Venous blood specimen / Unknown Venipuncture / Unknown 01/17/2025 5:29 PM EDT 01/17/2025 5:[address] [facility] - 01/17/2025 6:13 PM EDT High levels of biotin in samples may falsely decrease hsTroponin values. ??Use caution when interpreting hsTroponin results in patients taking biotin who exhibit renal impairment (eGFR <60) or in patients taking more than 20 mg/day of biotin. Cortez May MD LAB BLOOD ORDERABLES Final Result [facility] [address] [place] [address], [place] [phone] * (ABNORMAL) Comprehensive metabolic panel (01/17/2025 5:29 PM EDT) [facility] Sodium 122(L) 133 - 145 mmol/L LAB CHEMISTRY METHOD 01/17/2025 6:[address] [facility] Potassium 3.9 3.5 - 5.5 mmol/L LAB CHEMISTRY METHOD 01/17/2025 6:[address] [facility] Chloride 89(L) 96 - 110 mmol/L LAB CHEMISTRY METHOD 01/17/2025 6:[address] [facility] CO2 25 21 - 32 mmol/L LAB CHEMISTRY METHOD 01/17/2025 6:[address] [facility] Anion Gap 8 3 - 11 LAB CHEMISTRY METHOD 01/17/2025 6:[address] [facility] Glucose 236(H) 70 - 100 mg/dL LAB CHEMISTRY METHOD 01/17/2025 6:16 PM [facility] BUN 18 5 - 25 mg/dL LAB CHEMISTRY METHOD 01/17/2025 6:16 PM [facility] Creatinine 0.95 0.70 - 1.30 mg/dL LAB CHEMISTRY METHOD 01/17/2025 6:16 PM [facility] eGFR 98 >=60 mL/min/1. 73m2 LAB CHEMISTRY METHOD 01/17/2025 6:16 PM [facility] Comment:Calculation based on the Chronic Kidney Disease Epidemiology Collaboration (CKD-EPI) equation refit without adjustment for race. BUN/Creatinine Ratio 18.9 LAB CHEMISTRY METHOD 01/17/2025 6:16 PM [facility] Calcium 8.6 8.5 - 10.5 mg/dL LAB CHEMISTRY METHOD 01/17/2025 6:16 PM [facility] AST (SGOT) 30 10 - 42 unit/L LAB CHEMISTRY METHOD 01/17/2025 6:16 PM [facility] ALT (SGPT) 37 10 - 60 unit/L LAB CHEMISTRY METHOD 01/17/2025 6:16 PM [facility] Alkaline Phosphatase 73 42 - 121 unit/L LAB CHEMISTRY METHOD 01/17/2025 6:16 PM [facility] Total Protein 6.2 6.0 - 8.0 g/dL LAB CHEMISTRY METHOD 01/17/2025 6:16 PM [facility] Albumin 3.3 3.2 - 5.0 g/dL LAB CHEMISTRY METHOD 01/17/2025 6:16 PM [facility] Total Bilirubin 0.6 0.0 - 1.4 mg/dL LAB CHEMISTRY METHOD 01/17/2025 6:16 PM [facility] Blood Venous blood specimen / Unknown Venipuncture / Unknown 01/17/2025 5:29 PM EDT 01/17/2025 5:47 PM EDT Cortez May MD LAB BLOOD ORDERABLES Final Result Performing Organization Address City/[facility]/ZIP Co de Phone Number [facility] [address] [place] [address], [place] [phone] * ECG 12 lead (01/17/2025 5:28 PM EDT) Ventricular Rate ECG 61 BPM GEMUSE Atrial Rate 61 BPM GEMUSE P-R Interval 160 ms GEMUSE QRS Duration 114 ms GEMUSE Q-T Interval 454 ms GEMUSE QTc 457 ms GEMUSE P Wave [place] 15 degrees GEMUSE T [place] 6 degrees GEMUSE ECG Interpretation Normal sinus rhythm Statement not found (#710) Statement not found (#713) Abnormal ECG When compared with ECG of 11-DEC-2024 20:02, Premature ventricular complexes are no longer Present Confirmed by Inessa WARNER JAMES ([id number]) on 01/18/2025 3:51:13 PM GEMUSE 01/17/2025 5:28 PM EDT 01/18/2025 3:51 PM EDT Cortez aMy MD ECG ORDERABLES Final Resul t Performing Organization Address [facility] Co de Phone Number GEMUSE * (ABNORMAL) POCT Glucose, blood (01/17/2025 5:19 PM EDT) [facility] Glucose POCT 143(H) 70 - 100 mg/dL 01/17/2025 5:[address] [facility] Blood Capillary blood specimen / Unknown 01/17/2025 5:19 PM EDT 01/17/2025 5:21 PM EDT Cortez May MD LAB POINT OF CARE T EST DOCKED DEVICE UNSOLICITED RESULTS Final Result Performing Organization Address City/[facility]/ZIP Co de Phone Number ALANA NIETO ID ([facility]) [facility] [address] [place] [address], [place] [phone] documented in this encounter Visit Diagnoses Diagnosis Syncope- Primary Syncope and collapse Intractable vomiting Persistent vomiting Hyponatremia Hyposmolality and/or hyponatremia Hypomagnesemia Disorders of magnesium metabolism Hypoglycemia Hypoglycemia, unspecified Near syncope documented in this encounter Admitting Diagnoses Diagnosis Syncope Syncope and collapse documented in this encounter Administered Medications Inactive Administered Medications - up to 3 most recent administrations Medication Order MAR Action Action Date Dose Rate Site atorvastatin (LIPITOR) tablet 80 mg 80 mg, oral, Nightly, First dose on Fri01/18/25 at 0038 Given 01/18/2025 1:39 AM EDT 80 mg celecoxib (CeleBREX) capsule 200 mg 200 mg, oral, 2 times daily, First dose on Fri01/18/25 at 0038 Given 01/18/2025 8:17 AM EDT 200 mg Given 01/18/2025 1:39 AM EDT 200 mg dextrose (D50W) 50% injection 12.5 g 12.5 g, intravenous, Every 15 min PRN, low blood sugar, moderate hypoglycemia *Patient is Unconscious, NPO, unable to swallow: BG 54 - 69 mg/dl*, Starting on Fri01/17/25 at 2041 dextrose (D50W) 50% injection 25 g 25 g, intravenous, Every 15 min PRN, low blood sugar, severe hypoglycemia *Patient is Unconscious, NPO, unable to swallow: BG LESS than 54 mg/dL*, Starting on Fri01/17/25 at 2041 dextrose 15 gram/60 mL oral solution 15 g 15 g, oral, Every 15 min PRN, low blood sugar, hypoglycemia *Patient conscious AND able to drink and swallow safely*, Starting on Fri01/17/25 at 2041 dextrose 15 gram/60 mL oral solution 30 g 30 g, oral, Every 15 min PRN, low blood sugar, hypoglycemia *Patient conscious AND able to drink and swallow safely*, Starting on Fri01/17/25 at 2041 dextrose 5 % infusion 75 mL/hr, intravenous, Continuous, Starting on Fri01/18/25 at 0227, For 13 hours Rate/Dose Change 01/18/2025 6:22 AM EDT 100 mL/hr 100 mL/hr Rate/Dose Change 01/18/2025 5:05 AM EDT 500 mL/hr 500 mL/ hr New Bag 01/18/2025 3:23 AM EDT 75 mL/hr 75 mL/hr dextrose 5 % infusion 500 mL/hr, intravenous, Continuous, Starting on Fri01/18/25 at 0508, For 1 hour New Bag 01/18/2025 5:14 AM EDT 500 mL/hr 500 mL/hr dextrose 5 % infusion 100 mL/hr, intravenous, Continuous, Starting on Fri01/18/25 at 0629, For 5 hours New Bag 01/18/2025 6:40 AM EDT 100 mL/hr 100 mL/hr erythromycin (KIMBERLY-TAB) DR tablet 250 mg 250 mg, oral, Every 8 hours PRN, stomach upset, Starting on Fri01/18/25 at 0037, For 1 day, Do not crush, chew, or split., Indication: Intra-abdominal Given 01/18/2025 1:39 AM EDT 250 mg Glucagon HCl (rDNA) injection 1 mg 1 mg, intramuscular, Once as needed, low blood sugar, severe hypoglycemia, Starting on Fri01/17/25 at 204, For 1 dose insulin glargine (LANTUS) injection 10 Units 10 Units, subcutaneous, Nightly, First dose on Fri01/17/25 at 2100, For 1 dose, Notify provider: -If patient is currently or will become NPO -If TPN was or will be interrupted or discontinued -For approval to hold long acting insulin Given 01/17/2025 10:49 PM EDT 10 Units Right Upper Arm (Back) insulin lispro injection 2-12 Units 2-12 Units, subcutaneous, 4 times daily before meals and nightly, First dose on Fri01/17/25 at 2100, Indication: Total Daily Dose (TDD) 40 - 80 units. Correction Scale: Moderate Dose Administer with meal and/or mealtime dose of insulin to correct high blood glucose If mealtime insulin dose not given (e.g. patient NPO or not eating), still administer correction factor for high blood glucose Given 01/18/2025 8:19 AM EDT 4 Units Left Lower Abdomen Given 01/17/2025 9:16 PM EDT 2 Units Le ft Upper Arm (Back) insulin lispro injection 5 Units 5 Units, subcutaneous, Once, On Fri01/18/25 at 0351, For 1 dose Given 01/18/2025 4:05 AM EDT 5 Units Left Upper Arm (Back) magnesium sulfate 2 gram/50 mL (4 %) IVPB 2 g 2 g, intravenous, at 25 mL/hr, Administer over 2 Hours, Once, On Fri01/17/25 at 1818, For 1 dose New Bag 01/17/2025 6:44 PM EDT 2 g 25 mL/hr metoclopramide (REGLAN) injection 5 mg 5 mg, intravenous, Every 6 hours PRN, nausea, vomiting, Starting on Fri01/17/25 at 2013, Doses LESS than or equal to 10 mg can be given IV push undiluted over 1 minute Given 01/18/2025 8:18 AM EDT 5 mg Given 01/17/2025 8:29 PM EDT 5 mg ondansetron (PF) (ZOFRAN) injection 4 mg 4 mg, intravenous, Once, On Fri01/17/25 at 1724, For 1 dose Given 01/17/2025 5:47 PM EDT 4 mg ondansetron (PF) (ZOFRAN) injection 4 mg 4 mg, intravenous, Once, On Fri01/17/25 at 1833, For 1 dose Given 01/17/2025 7:04 PM EDT 4 mg ondansetron (PF) (ZOFRAN) injection 4 mg 4 mg, intravenous, Every 8 hours PRN, vomiting, nausea, Starting on Fri01/17/25 at 1931, -ONLY give IV if patient is unable to take orally. -If inadequate response within 30 minutes, proceed to next-line agent or contact provider if no further options ordered. Given 01/18/2025 3:46 AM EDT 4 mg pregabalin (LYRICA) capsule 150 mg 150 mg, oral, 3 times daily, First dose on Fri01/18/25 at 0900 Given 01/18/2025 8:18 AM EDT 150 mg sodium chloride 0.9 % bolus 500 mL 500 mL, intravenous, at 500 mL/hr, Administer over 1 Hours, Once, On Fri01/17/25 at 1724, For 1 dose New Bag 01/17/2025 6:07 PM EDT 500 mL 500 mL/hr sodium chloride 0.9 % flush 10 mL 10 mL, intravenous, 2 times daily, First dose on Fri01/17/25 at 2100 Given 01/18/2025 8:18 AM EDT 10 mL Given 01/17/2025 8:30 PM EDT 10 mL sodium chloride 0.9 % flush 10 mL 10 mL, intravenous, As needed, line care, Starting on Fri01/17/25 at 1931 sodium chloride 0.9 % infusion 125 mL/hr, intravenous, Continuous, Starting on Fri01/17/25 at 1833 New Bag 01/17/2025 6:43 PM EDT 125 mL/hr 125 mL/hr sodium chloride 0.9 % infusion 75 mL/hr, intravenous, Continuous, Starting on Fri01/17/25 at 1932, For 12 hours New Bag 01/17/2025 8:24 PM EDT 75 mL/hr 7 5 mL/hr documented in this encounter Active and Recently Administered Medications Times are shown in EDT. Scheduled Medication Order 01/16/2025 01/17/2025 01/18/2025 atorvastatin (LIPITOR) tablet 80 mg 80 mg, oral, Nightly, First dose on Fri01/18/25 at 0038 0139 (Given - Provid er: Renea Herman RN) celecoxib (CeleBREX) capsule 200 mg 200 mg, oral, 2 times daily, First dose on Fri01/18/25 at 0038 0139 (Given - Provid er: Renea Herman RN)0817 (Given - Provider: Robert Barreto RN) insulin glargine (LANTUS) injection 10 Units (COMPLETED) 10 Units, subcutaneous, Nightly, First dose on Fri01/17/25 at 2100, For 1 dose, Notify provider: -If patient is currently or will become NPO -If TPN was or will be interrupted or discontinued -For approval to hold long acting insulin 2249 (Given - Provider: Renea Herman, RAJI) insulin lispro injection 2-12 Units 2-12 Units, subcutaneous, 4 times daily before meals and nightly, First dose on Fri01/17/25 at 2100, Indication: Total Daily Dose (TDD) 40 - 80 units. Correction Scale: Moderate Dose Administer with meal and/or mealtime dose of insulin to correct high blood glucose If mealtime insulin dose not given (e.g. patient NPO or not eating), still administer correction factor for high blood glucose 2116 (Given - Provider: Renea Herman, RN) 0819 (Given - Provider: Robert Barreto, RAJI)1120 (Not Given - Provider: Yashira العلي RN - Reason: Patient/Resident/Agent refused - education provided ) insulin lispro injection 5 Units (COMPLETED) 5 Units, subcutaneous, Once, On Fri01/18/25 at 0351, For 1 dose 0405 (Given - Provid er: May Almonte RN) lisinopriL (PRINIVIL,ZESTRIL) tablet 20 mg 20 mg, oral, Daily, First dose on Fri01/18/25 at 0900 0828 (Not Given - Provider: Robert Barreto RN - Reason: Other - Comment: low bp) magnesium sulfate 2 gram/50 mL (4 %) IVPB 2 g (COMPLETED) 2 g, intravenous, at 25 mL/hr, Administer over 2 Hours, Once, On Fri01/17/25 at 1818, For 1 dose 1844 (New Bag - Provider: Jackie Smith RN)2026 (Stopped - Provider: Renea Herman RN) ondansetron (PF) (ZOFRAN) injection 4 mg (COMPLETED) 4 mg, intravenous, Once, On Fri01/17/25 at 1724, For 1 dose 1747 (Given - Provider: Jackie Smith RN) ondansetron (PF) (ZOFRAN) injection 4 mg (COMPLETED) 4 mg, intravenous, Once, On Fri01/17/25 at 1833, For 1 dose 190 (Given - Provider: Jackie Smith RN) pregabalin (LYRICA) capsule 150 mg 150 mg, oral, 3 times daily, First dose on Fri01/18/25 at 0900 0818 (Given - Provid er: Robert Barreto RN) sodium chloride 0.9 % bolus 500 mL (COMPLETED) 500 mL, intravenous, at 500 mL/hr, Administer over 1 Hours, Once, On Fri01/17/25 at 1724, For 1 dose 1807 (New Bag - Provider: Jackie Smith RN)1905 (Stopped - Provider: Jackie Smith RN) sodium chloride 0.9 % flush 10 mL(Linked Group 1) 10 mL, intravenous, 2 times daily, First dose on Fri01/17/25 at 2100 2030 (Given - Provider: Renea Herman, RN) 0818 (Given - Provider: Robert Barreto RN) Continuous Medication Order 01/16/2025 01/17/2025 01/18/2025 dextrose 5 % infusion (CANCELED) 75 mL/hr, intravenous, Continuous, Starting on Fri01/18/25 at 0227, For 13 hours 0323 (New Bag - Prov ider: May Almonte RN)0505 (Rate/Dose Change - Provider: May Almonte, RAJI - Comment: Provider Catia Cowart & Carlos Huston at bedside. Verbal'd to this RN to bolus 500mL of d5W currently hanging to give 500mL over the next hour.)0622 (Rate/Dose Change - Provider: May Almonte RN - Comment: Provider Catia Cowart & Carlos Huston at bedside. Verbal'd to this RN to bolus 500mL of d5W currently hanging to give 500mL over the next hour. Provider requested D5W 500mL bolus, followed by D5W @ 100mL/hr for five hours, then back to 75 mL/hr.)0630 (Stopped - Provider: May Almonte RN) dextrose 5 % infusion 500 mL/hr, intravenous, Continuous, Starting on Fri01/18/25 at 0508, For 1 hour 0514 (New Bag - Prov ider: May Almonte RN - Comment: This bolus order given from alternate bag of D5W.)0629 (Stopped - Provider: May Almonte RN) dextrose 5 % infusion 100 mL/hr, intravenous, Continuous, Starting on Fri01/18/25 at 0629, For 5 hours 0640 (New Bag - Prov ider: May Almonte RN - Comment: for five hours)1038 (Stopped - Provider: Yashira العلي RN - Comment: pt refused) sodium chloride 0.9 % infusion (CANCELED) 125 mL/hr, intravenous, Continuous, Starting on Fri01/17/25 at 1833 1843 (New Bag - Provider: Jackie Smith RN)2052 (Stopped - Provider: Renea Herman RN) sodium chloride 0.9 % infusion (CANCELED) 75 mL/hr, intravenous, Continuous, Starting on Fri01/17/25 at 1932, For 12 hours 2023 (New Bag - Provider: Renea Herman RN) 223 (Stopped - Provider: May Almonte RN) PRN Medication Order 01/16/2025 01/17/2025 01/18/2025 dextrose (D50W) 50% injection 12.5 g 12.5 g, intravenous, Every 15 min PRN, low blood sugar, moderate hypoglycemia *Patient is Unconscious, NPO, unable to swallow: BG 54 - 69 mg/dl*, Starting on Fri01/17/25 at 2041 dextrose (D50W) 50% injection 25 g 25 g, intravenous, Every 15 min PRN, low blood sugar, severe hypoglycemia *Patient is Unconscious, NPO, unable to swallow: BG LESS than 54 mg/dL*, Starting on Fri01/17/25 at 2041 dextrose 15 gram/60 mL oral solution 15 g 15 g, oral, Every 15 min PRN, low blood sugar, hypoglycemia *Patient conscious AND able to drink and swallow safely*, Starting on Fri01/17/25 at 2041 dextrose 15 gram/60 mL oral solution 30 g 30 g, oral, Every 15 min PRN, low blood sugar, hypoglycemia *Patient conscious AND able to drink and swallow safely*, Starting on Fri01/17/25 at 2041 erythromycin (KIMBERLY-TAB) DR tablet 250 mg 250 mg, oral, Every 8 hours PRN, stomach upset, Starting on Fri01/18/25 at 0037, For 1 day, Do not crush, chew, or split., Indication: Intra-abdominal 0139 (Given - Provid er: Renea Herman RN) Glucagon HCl (rDNA) injection 1 mg 1 mg, intramuscular, Once as needed, low blood sugar, severe hypoglycemia, Starting on Fri01/17/25 at 2041, For 1 dose metoclopramide (REGLAN) injection 5 mg 5 mg, intravenous, Every 6 hours PRN, nausea, vomiting, Starting on Fri01/17/25 at 2013, Doses LESS than or equal to 10 mg can be given IV push undiluted over 1 minute 2028 (Given - Provider: Renea Herman RN) 08 (Given - Provider: Robert Barreto RN) ondansetron (PF) (ZOFRAN) injection 4 mg (CANCELED)(Linked Group 2) 4 mg, intravenous, Every 8 hours PRN, vomiting, nausea, Starting on Fri01/17/25 at 1931, -ONLY give IV if patient is unable to take orally. -If inadequate response within 30 minutes, proceed to next-line agent or contact provider if no further options ordered. 0346 (Given - Provid er: May Almonte RN) sodium chloride 0.9 % flush 10 mL(Linked Group 1) 10 mL, intravenous, As needed, line care, Starting on Fri01/17/25 at 1931 Linked Groups Order Group 1: Insert peripheral IV (CANCELED) STAT, Once, On Fri01/17/25 at 193, For 1 occurrence And Maintain IV access (CANCELED) Until discontinued, Starting on Fri01/17/25 at 1931, Until Specified And Saline lock IV (CANCELED) Routine, Once, On Fri01/17/25 at 193, For 1 occurrence And sodium chloride 0.9 % flush 10 mLJump to med 10 mL, intravenous, 2 times daily, First dose on Fri01/17/25 at 2100 And sodium chloride 0.9 % flush 10 mLJump to med 10 mL, intravenous, As needed, line care, Starting on Fri01/17/25 at 1931 Group 2: ondansetron ODT (ZOFRAN-ODT) disintegrating tablet 4 mg (CANCELED) 4 mg, oral, Every 8 hours PRN, vomiting, nausea, Starting on Fri01/17/25 at 1931, -Give IV if patient is unable to take orally. -If inadequate response within 30 minutes, proceed to next-line agent or contact provider if no further options ordered. For ODT tablets: -Do not remove from blister pack until just before administering. -Patient should allow tablet to dissolve on tongue. Or ondansetron (PF) (ZOFRAN) injection 4 mg (CANCELED)Jump to med 4 mg, intravenous, Every 8 hours PRN, vomiting, nausea, Starting on Fri01/17/25 at 1931, -ONLY give IV if patient is unable to take orally. -If inadequate response within 30 minutes, proceed to next-line agent or contact provider if no further options ordered. documented in this encounter Orders Medications Ordered That Bogdan ht Not Have Been Administered Count Last Ordered Date First Ordered Date lisinopriL (PRINIVIL,ZESTRIL) tablet 20 mg 1 01/18/2025 metoclopramide (REGLAN) injection 5 mg 1 dextrose (D50W) 50% injection 12.5 g 1 12/24 dextrose (D50W) 50% injection 25 g 1 2024 dextrose 15 gram/60 mL oral solution 15 g 1 01/17/2025 dextrose 15 gram/60 mL oral solution 30 g 1 01/17/2025 Glucagon HCl (rDNA) injection 1 mg 1 2024 heparin (UFH) injection 5,000 Units 1 01/17 ondansetron ODT (ZOFRAN-ODT) disintegrating tablet 4 mg 1 01/17/2025 sodium chloride 0.9 % flush 10 mL 1 025 Lab Orders Without Results Count Last Ordered D ate First Ordered Date POCT GLUCOSE, BLOOD 4 01/18/2025 01/18/20 25 Respiratory Care Count Last Ordered Date First Ordered Date CPAP NIV 1 01/17/2025 Admission Count Last Ordered Date First Orde red Date ADMIT TO INPATIENT 1 01/17/2025 Transfer Count Last Ordered Date First Orde red Date TRANSFER PATIENT TO NEW UNIT 1 01/18/2025 documented in this encounter Care Teams Supersonic Engineer Relationship Specialty Start Date End Date Doretha Avilez MD [address] [place] [address] PCP - General 11/20/22 documented as of this encounter
--- NOTE | 2025-01-21 14:59 | PM.PROC ---
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 Not responding to steroid injections. XR Images reviewed: Right Ankle XR 05/2024 FINDINGS: Visualized portions of the distal tibia and fibula demonstrate no fracture. Again demonstrated are severe degenerative changes of the tibiotalar joint with loss of joint space and chronic bony deformity of the talar dome. Prominent osteophytes are noted. A small ankle joint effusion is suspected. No localized soft tissue swelling. No radiopaque foreign body. IMPRESSION: Severe degenerative changes and chronic remodeling of the right ankle. No fracture. Findings: ?Orthogonal views of the right tibiotalar joint obtained in grayscale Procedure: ?After obtaining informed consent for an ultrasound-guided durolane injection of the right ankle, the tibiotalar joint was imaged with ultrasound and revealed decreased joint space with osteophytes. ?Anterior ankle was sterilely prepped with chlorhexidine and anesthetized with lidocaine spray. ?A 20 gauge 1.5 in needle was advanced into the synovial cavity under direct ultrasound visualization using in plane technique. ?3 cc Durolane was injected through the same needle. ?The procedure was well tolerated. Impressions: ? Severe osteoarthritis of the right tibiotalar joint as evidenced by decreased joint space and osteophytes Condition: stable
== END 2025-01-21 08:36 | disposition home or self-care (01) ==
LOC: HO.US 08:35
PROVIDERS: PCP Internal Medicine; Visit Provider Student in an Organized Health Care Education/Training Program
DX: E10.610 Type 1 diabetes mellitus with diabetic neuropathic arthropathy (principal); M19.071 Primary osteoarthritis, right ankle and foot; M25.771 Osteophyte, right ankle; E10.40 Type 1 diabetes mellitus with diabetic neuropathy, unspecified
CPT/HCPCS: 20606; 20611; J7318

== ENCOUNTER → 2025-01-21 08:35 | Outpatient (BNV) | payer MEDICARE, MEDICAID, SELFPAY | PROVIDERS: PCP Internal Medicine; Visit Provider Student in an Organized Health Care Education/Training Program | DX: M19.071 Primary osteoarthritis, right ankle and foot (principal); E10.21 Type 1 diabetes mellitus with diabetic nephropathy | CPT/HCPCS: 20605; 76942 ==

== ENCOUNTER 2025-03-10 14:18 | Outpatient (AMB) | payer MEDICARE, MEDICAID, SELFPAY ==
--- NOTE | 2025-03-10 14:20 | MHC.OFFVIS ---
Intake Visit Reasons: Inj-Right ankle inj-last injection-12/06/24 Intake Note: Shubham is a 49 year old male who presents today for a right ankle injection, last injection on 12/06/24. Patient reports his last injection in the office provided him with relief, however his relief is becoming less and less. He mentions a recent ultrasound-guided durolane injection of the right ankle on 01/21/25 with Rheumatology that did not help at all. Allergies codeine Allergy (Unknown, Verified 03/10/25 14:27) itching ibuprofen (IBUPROFEN) Allergy (Unknown, Verified 03/10/25 14:27) HIVES ketorolac Allergy (Unknown, Verified 03/10/25 14:27) swelling sumatriptan (From IMITREX) Allergy (Unknown, Verified 03/10/25 14:27) TACHYCARDIA bupropion (From Wellbutrin) Adverse Reaction (Severe, Verified 03/10/25 14:27) suicide thoughts prochlorperazine (From Compazine) Adverse Reaction (Unknown, Verified 03/10/25 14:27) Unknown HPI HPI Inj-Right ankle inj-last injection-12/06/24: Details: 49-year-old gentleman returns to the office today for right ankle arthritis. Last steroid injection was on 12/06/2024. He did see Rheumatology on 01/21/2025 and had a gel injection under fluoroscopy. He states the gel was not entirely helpful. He feels the ankle is becoming worse as he continues to be more active since he has been losing weight. 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-steroidal anti-inflammatories (nsaid) Obesity (BMI 35.0-39.9 without comorbidity) Bronchitis COPD (chronic obstructive pulmonary disease) Restrictive lung disease SABRINA (obstructive sleep apnea) Morbid obesity Social History Household Members: Significant Other Housing: House Alcohol intake: never Patient Tobacco Use Status: Never used Tobacco Current occupational status: disabled Current occupation: Lt handed Review of Systems Const All systems reviewed & are unremarkable except as noted in HPI and below Physical Exam Const General: cooperative and no acute distress Orientation/consciousness: patient oriented x3 Resp Effort & Inspection: normal respiratory effort and able to speak in complete sentences Cardio Peripheral pulses: Peripheral pulses 2+ throughout Neuro General: patient oriented x3 Extrem Other: Right ankle normal to inspection.? Significant tenderness over the medial and lateral joint of the ankle No tenderness over the syndesmosis. No significant swelling. No ankle instability. NVI .? Limited range of motion Office Procedures AMB Joint Injection/Aspiration Joint Injection/Aspiration Primary Site: right ankle Prep: site was prepped using aseptic technique, ethochloride spray was applied and injection warnings given Injected: 80 mg of, DepoMedrol, with 1 mL of and 1% plain lidocaine Procedure: The patient tolerated the procedure well and there was some relief with the local anesthesia Coding - Medium joint Procedure code (CPT) selection complete Assessment & Plan Assessment & Plan (1) Osteoarthritis of ankle, right: Code(s): M19.071 - Primary osteoarthritis, right ankle and foot Category: Medical Qualifiers: Osteoarthritis type: primary Qualified Code(s): M19.071 - Primary osteoarthritis, right ankle and foot Plan We discussed options today, which include steroid injection. The patient did consent to move forward with the right ankle injection, which was tolerated well. I recommended rest, ice, and elevation and OTC anti-inflammatories as needed for discomfort. We also discussed diabetes and the effect the steroid injection can have on their blood glucose levels; therefore, they will continue to monitor these very closely over the next 72 hours. If there are concerns, they should report to the ED immediately. I did explain to the patient he should have a conversation with the foot and ankle surgeon to see if there are any options such as an ankle fusion versus arthroplasty that may benefit him. I do understand he has diabetes and he is at a high risk of infection with surgical intervention however I think the conversation would help him to better understand going forward his expectations. I do not feel like continuing to inject the ankle is the best thing as this can continue to weaken the bone and interfere with his diabetes. The patient does express understanding. Referral was placed. Orders: Referrals Orthopedics Referral M19.071 - Primary osteoarthritis, right ankle and foot Coding Level of Care Code Est Pt Level 3 (23724) Complex EM visit Add On G2211 Diagnoses Primary osteoarthritis of right ankle M19.071 Osteoarthritis type: primary CPT Codes Coding - Medium joint: 17159 - Medium joint ([id number])
--- OUTSIDE RECORDS SUMMARY | 2025-03-10 15:08 | XMS_ITS | Continuity of Care Document ---
Author Organization [facility] Address [address] [place] [address] Phone [phone] Social History Type Date Description Comments Sex Male Sex Unknown Medical Devices Description No Information Available Encounters Description No Information Available Assessments Description No Information Available Plan of Treatment No Information Available Functional Status Description No Information Available Mental Status Description No Information Available Referrals Description No Information Available
--- OUTSIDE RECORDS SUMMARY | 2025-03-10 15:09 | XMS_ITS | Clinical Summary ---
Author Organization [facility] Address [address] [place] [id number] Care Team Providers Care Motor Rebuilder Name Role Phone Unavailable Primary Care Provider [...]
--- OUTSIDE RECORDS SUMMARY | 2025-03-10 15:09 | XMS_ITS | Clinical Summary ---
Author Organization [facility] Address [address] [place] [address] Care Team Providers Care Pocket Marker Name Role Phone Unavailable Primary Care Provider [...]
--- OUTSIDE RECORDS SUMMARY | 2025-03-10 15:09 | XMS_ITS ---
Author Name [facility] Organization Unknown History of Medication Use Medication Directions Dispensed Refills Start Date End Date Stat cephalexin (KEFLEX) capsule 500 mg 500 mg, oral, Once, On [facility] 03/03/25 at 2205, For 1 dose, Indication: Skin/Soft Tissue 03/04/2025 03/04/20 completed lidocaine (XYLOCAINE) 1 % injection 5 mL 5 mL, infiltration, Once, On [facility] 03/03/25 at 2105, For 1 dose 03/04/2025 03/04/20 completed bacitracin ointment packet 1 Application, Topical, 3 times daily, First dose on [facility] 03/03/25 at 2204, Apply to wound 03/04/2025 active cephalexin (KEFLEX) 500 mg capsule Take 1 capsule (500 mg total) by mouth 2 (two) times a day for 7 days. 03/03/2025 03/03/20 aborted rosuvastatin (CRESTOR) 40 mg tablet TAKE ONE TABLET BY MOUTH ONCE DAILY 10/06/2024 active cephalexin (KEFLEX) capsule 500 mg 500 mg, Oral, Once, On 11/16/23 at 2015, For 1 dose 11/17/2023 11/17/19 completed cephalexin (KEFLEX) 500 MG capsule Take 1 capsule (500 mg total) by mouth 4 (four) times a day for 7 days. 11/16/2023 11/24/19 active oxyCODONE-acetaminophen (PERCOCET) 5-325 MG per tablet Take 1 tablet by mouth every 4 (four) hours as needed for pain (1-2 tablets every 4-6 hours as needed for pain). 10/03/2015 active PARoxetine (PAXIL) 30 MG tablet 60 mg daily. 10/19/2013 active celecoxib (CeleBREX) 200 mg capsule Take 1 capsule (200 mg total) by mouth 2 (two) times a day. active empagliflozin (Jardiance) 10 mg tablet Take 1 tablet (10 mg total) by mouth 1 (one) time each day. active erythromycin base 250 mg tablet Take 0.5 tablets (125 mg total) by mouth every 4 (four) hours if needed (stomach upset). active hydrochlorothiazide (HYDRODIURIL) tablet 25 mg Take 25 mg by mouth daily. active inf form, glutaric aciduria I 13-475 gram-kcal/100 g powder Take by mouth. active insulin lispro 100 unit/mL injection Inject under the skin 3 (three) times a day before meals. -Administer within 15 minutes of a meal active lisinopriL (PRINIVIL,ZESTRIL) 20 mg tablet Take 1 tablet (20 mg total) by mouth 1 (one) time each day. active pregabalin (LYRICA) 150 mg capsule Take 1 capsule (150 mg total) by mouth 3 (three) times a day. active pregabalin (LYRICA) capsule 150 mg Take 150 mg by mouth 2 (two) times a day. active spironolactone (ALDACTONE) 50 mg tablet Take 1 tablet (50 mg total) by mouth 1 (one) time each day. active Allergies Allergen Reaction Severity Comment Documented Date Source Status NSAIDS (NON-STEROIDAL ANTI-INFLAMMATORY DRUG) OTHER 03/03/2025 [facility] active BUPROPION HCL 01/17/2025 [facility] active ACETAMINOPHEN-CODEIN E SEIZURES 09/13/2024 [facility] active PROCHLORPERAZINE OTHER Suicidal ideations 09/13/2024 [facility] active TRAMADOL 09/10/2015 [facility] active BUPROPION OTHER (SEE COMMENTS) suicidal 12/19/2013 [facility] active IBUPROFEN ANAPHYLAXIS [facility] KETOROLAC TROMETHAMINE ANAPHYLAXIS [facility] PROCHLORPERAZINE EDISYLATE dystonic [facility] SUMATRIPTAN PALPITATIONS [facility] Problems Problem Status Onset Date Problem Type Date of Resoluti on Source Syncope active 2025-01-17 ProblemAct [facility] Heart failure with improved ejection fraction (HFimpEF) (CMS/HCC V24, CMS/HCC V28) active 2025-01-17 ProblemAct [facility]eration of left middle finger without foreign body without damage to nail, initial encounter active EncounterDiagnosisAct [facility] Immunizations Vaccine Date Source Lot Number Status Tdap Tetanus diptheria acell ular pertussis (Boostrix; Adacel) 7yo and older 03/03/2025 [facility] C completed Encounters Encounter Type Encounter Reason Primary Diagnosis Location Date Emergency laceration to left middle finger Laceration without foreign body of left middle finger without damage to nail, initial encounter [facility] 03/03/2025 Emergency Cellulitis, unspecified Cellulitis, unspecified [facility] 11/16/2023 Care Team Organization Name Specialty Phone Email Start Date End Da te [facility] Doretha Avilez [facility] 03/04/2025 [facility] 03/04/2025 [facility] 11/17/2023 03/08/2025 [facility] 11/17/2023
--- OUTSIDE RECORDS SUMMARY | 2025-03-10 15:09 | XMS_ITS | Clinical Summary ---
Author Organization [facility] Address [address] [place] [address] Care Team Providers Care Tow Motor Operator Name Role Phone Unavailable Primary Care [...] 71 11/16/2023 7:41 PM EDT Temperature 36.5 C (97.7 F) 11/16/2023 7:41 PM EDT Respiratory Rate 16 11/16/2023 7:41 PM EDT Oxygen Saturation 100% 11/16/2023 7:41 PM EDT Inhaled Oxygen Concentration - - Weight 136.1 kg (300 lb) 10/03/2015 6:29 PM EST Height 182.9 cm (6') 10/03/2015 6:29 PM EST Body Mass Index 40.69 10/03/2015 6:29 PM EST Plan of Treatment Not on file
--- OUTSIDE RECORDS SUMMARY | 2025-03-10 15:09 | XMS_ITS | Data Portability ---
Author Organization [place] [facility] Address [place] [address] Care Team Providers Care Serger Name Role Phone HIMANSHULizabeth LATONYA Primary Care Provider [phone] JOHANNY ARCEO Primary Care Provider RYLEY RODRIGUEZ OTHER LAVERNE TRINH Radio/Tv Technician Assessment Encounter Date Assessment Date Assessment LastModified by Organization Details LastModified Time 03/03/2021 03/03/2021 Overview/History : Pt is a 45yo M with PMH sig for Asthma, Depression, DM Type 1, HLD, HTN, SABRINA. Pt reports a 2 month hx of right hip pain that has been intermittent. He states the pain is hard to describe but the touch of pants/sheets to the hip/thigh area is painful. He denies change in ROM recent trauma to the area, or pain with weight bearing or movement. States pt is not reproducible. He states he has gotten some relief with CBD lotion to the area. Pt also reports a 1-2 week hx of significantly fluctuating FSBS Exam: Pt is A/Ox3, non-toxic appearing, VSS, HRR, resp reg and unlabored on RA, lungs CTA bilat. Pt has O2 in the home for PRN use. Pt ambulating around home with cane, able to weight bear to bilat LE, normal ROM, skin clean dry and intact. EKG shows NSR. DDx considered, but not limited to: Hypokalemia: noted on BMP, K of 2.9 Neuropathy: likely given prior hx and description of pain OA: less likely as pain is not reproducible and not made worse with weight bearing or activity Fx: unlikely, denies falls or recent trauma Septic Joint: unlikely, no erythema, edema, or increased warmth to the area, given hx of DM with fluctuating FSBS CBC ordered to r/o infection GERD: pt's questions regarding this chronic condition answered as able. Work up/Results: CBC: pending BMP: K 2.9 Plan/Discussion: The details of this patient case and the plan of care were discussed with the Virtual Physician electronic scale tester [facility], Dr. Rascon. Pt advised to take 40meq of Potassium daily in either a single or divided dose depending on tolerance. Pt has 20meq in the home at this time so script noted needed. 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 Given lack of signficant systemic aborsbtion of topical route, voltran gel sent into pharmacy to help with pain. Pt advised to follow up with GI regarding his GERD sx. Pt is currently between PCPs, pt questions regarding chronic health conditions answered as able. Patients PCP contacted and updated on patient status. Patient verbalized understanding of discharge instructions and when to follow up with PCP/911/ED as needed. Patient in agreement with current plan and treatment. In order to obtain further information and compare any laboratory results/values, I have accessed old patient records. This information was pertinent in my medical decision making today. Time On Scene with Patient: 01:00:13 [email or web address] Not available 03/03/2021 15:32:25 03/06/2021 03/06/2021 Overview/History :T his is a 45-year-old male that as being seen for follow up today after being found to have hypokalemia on 03/03. He reports he went to the emergency room the night since last [facility] visit with respiratory complaints and was discharged home, he had a normal CT scan of the chest. Exam: On exam patient is awake and alert he is afebrile and hemodynamically stable, nontoxic appearing. Lungs clear to auscultation bilaterally, heart rate regular with palpable radial pulses bilaterally. Moist mucous membranes. DDx considered, but not limited to:Hypokalemia is likely due to concurrent use of loop diuretics, though he is improved on potassium repletion. Follow up visit. Work up/Results:Potassi um has improved to 3.3 from 2.9. Plan/Discussion:I discussed with the patient that I would like for him to continue as potassium 40 mEq daily for an additional week. We did discuss that he likely may need to resume low-dose potassium repletion while on diuretics. 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 Whomever is prescribing his furosemide should also consider having him on long-term potassium repletion. I discussed with the patient examples of potassium rich foods. We also discussed strategies to help him establish care with a PCP. He is supposed to hear from case management at [facility], I also explained that he could call the 800 number on the back of his insurance card to be connected with PCP in his area that will take his insurance in are accepting patients. He tells me that he will do this. In order to obtain further information and compare any laboratory results/values, I have accessed old patient records. This information was pertinent in my medical decision making today. Time On Scene with Patient: 00:45:49 [email or web address] Not available 03/06/2021 10:44:47 03/14/2021 03/14/2021 Overview/History : 45 y/o M with PMHx sig for asthma, depression, DM, HLD, HTN, SABRINA, known to but new to this provider, who presents w/ c/o chronic GERD and broken toe. Patient states that his PCP quit and he has new pt appt with Dr. Monge next month. He tried switching his Protonix to Prilosec because it was only helping 70% but he states he is doing worse on the Prilosec. He has also been trying tums with minimal relief. States he had a swallow test that was normal, has not seen GI. He states water is the worst and always comes back up, but he is able to keep 70% of food down and denies abdominal pain, abnormal weight loss, hematemesis, or melena. Denies eating sour, spicy, or greasy food. Tried probiotics but gave him diarrhea. He stubbed his 5th right toe on the end table yesterday and today and thinks he broke it and states that he cannot bear any weight on his foot. Exam: afebrile, RRR, normotensive, normal resps, O2 sat 98% on RA, non-toxic, anxious appearing. GENERAL: well developed, well nourished, morbidly obese, appears stated age, sitting comfortably in no acute distress. RESP: normal I:E, breathing non-labored, no accessory muscle use, clear to auscultation bilaterally, no wheezes, rhonchi, or rales. CARDIO: RRR, normal S1, S2, no murmurs, rubs, or gallops. ABD: soft, non-tender, non-distended, normoactive BS x4, no masses or HSM. MUSK: able to wiggle toes, right 5th toe with dorsal interphalangeal ecchymosis, minimal edema, full ROM, pain inconsistently elicited with right lateral extension, right first and second mid metatarsal TTP without signs of trauma, right ankle TTP with limited ROM due to pain which pt reports is chronic, strength limited due to pain, normal muscle tone, no atrophy, pt unwilling to walk due to pain. EXTREMITIES: warm, well perfused, calves soft, nontender, no cyanosis, swelling or rashes. NEURO: awake, alert, oriented x3, no focal neuro deficits, moving all extremities spontaneously. DDx considered, but not limited to: toe sprain - likely given JJ mild swelling and bruising, and no bony deformity, with full ROM toe fracture - low suspicion but pt reports unable to bear weight forefoot fracture - low suspicion and unlikely given JJ, no signs of trauma, but pt reports unable to bear weight and tenderness on exam GIB - unlikely, VSS, no hematemesis or melena gastritis - unlikely, no abdominal pain esophageal stricture - less likely, no difficulty swallowing solids pablo's esophagus - possible PUD - unlikely, no abdominal pain cholecystitis - unlikely, afebrile, no abdominal pain Work up/Results: right foot XR pending. Plan/Discussion: -right 5th toe sprain, som taped, may take up to 6 weeks to heal -since pt reports he cannot bear any weight will check foot XR to r/o metatarsal fracture, although question accuracy of history/pain as I was able to manipulate toe and foot while som taping without eliciting pain -Rest, Ice 20 minutes 3-5 times per day, Elevation -Take Tylenol 1000 mg TID PRN pain/swelling, pt cannot take motrin due to h/o GIB -OK to ambulate with cane -will call with XR results when available -chronic GERD -Recommend switching prilosec back to protonix since this worked better, and f/u with GI for additional testing -hypokalemia -improving on KCl supplement as per 03/06 labs -pt advised to contact cardiology office for continuation of this Rx since they also manage patient's diuretic -pt educated on K rich foods last visit Thank you for your visit with [facility] today. We cannot always find the exact cause of your symptoms during your initial visit. Please follow up with your primary care provider or specialist to be rechecked or seek medical attention if your symptoms do not go away or get worse. If you develop any new or worsening symptoms and need after hours care, please go to nearest ER and/or call 911. If you have additional concerns or develop a change in your condition between 8am-10pm, please call [facility] at [phone] to help navigate your care. In order to obtain further information and compare any laboratory results/values, I have accessed old patient records. This information was pertinent in my medical decision making today. [email or web address] Not available 03/14/2021 12:08:19 11/04/2021 11/04/2021 Overview/History : 46 y/o M with PMHx sig for asthma, depression, DM, HLD, HTN, SABRINA, COPD, known to but new to this provider, who presents productive cough x one week and fever for days . He is taking Tylenol and Mucinex. He has not taken his temperature but feels as though he had one. He took a total two left over abx three days ago and started feeling better, however symptoms returned. He has been taking his nebulizer treatment with temp. relief. Believes he has/had Covid although he was not tested. Exam: Patient alert and oriented. Pleasant and in euthymic mood. VS stable with oxygen saturation 93% on RA. HEENT: Normocephalic,atra umatic Resp: RR 18, no use of accessory muscles, Bilateral base with expiratory wheeze and dry crackles. Cardiac: RRR,S1,S2, no murmurs, gallops, or rubs Extremity: No edema. DDx considered, but not limited to: Pneumonia: X-ray ordered to rule out pneumonia Covid 19: testing ordered for possible diagnosis. COPD exacerbation: Can be caused by triggering agent such as viral/bacterial. Plan/Discussion:Connie wrightussed abnormal finding with patient. Prednisone administered po with visit. Patient has been on Prednisone before and is aware of the great possibility of his glucose increasing. X-ray ordered for additional evaluation and to rule out possible pneumonia. Patient is to start on Azithromycin. Covid 19 pending and he was made aware that he would be contacted with positive finding. Patient left sitting comfortably on his couch. Instructed to seek emergency care with worsening of his symptoms. Time On Scene with Patient: 00:37:26 [email or web address] Not available 11/04/2021 15:58:15 11/06/2021 11/06/2021 Proper Personal Protective Equipment (PPE), including gloves, eye protection and masks were donned and doffed appropriately and all equipment cleaned using approved technique with germicidal disposable wipes prior to and after care of this patient according to [facility]'s infection prevention protocols. Overview/History: 46 yo male with hx of COPD on maintenance inhalers was seen 2 days ago for prod cough and SOB. He was placed on prednisone and zpak and had CXR which showed no acute cardiopulmonary disease. He called yesterday to report worsening of symptoms and was placed on today's schedule. Upon seeing the patient this AM he walks to door unassisted, speaks in full sentences and shows no resp distress. He reports that he saw my xray and i have pneumonia. When asked he where saw them he reported I have my ways. Exam: pulm exam (+) for single exp wheeze, no rales, no rhonchi. no resp distress. AVSS. afebrile. nontoxic appearing. NAD. DDx considered, but not limited to: acute bronchitis - most likely diagnosis PNA - no rales, no sat (from baseline), afebrile, cxr without signs of PNA, low suspicion viral URI - no syndrome of symptoms, lower suspicion Plan/Discussion: -nontoxic appearing NAD AVSS -reassured that PNA was unlikely at this time -pt will complete prednisone, zpak -cont alb nebs prn and maintenance inhalers -if symptoms including but not limited to: chest pain, fevers. bloody sputum, sob on exertion occur to seek emergent medical care. In order to obtain further information and compare any laboratory results/values, I have accessed old patient records. This information was pertinent in my medical decision making today. [email or web address] Not available 11/06/2021 09:29:59 Plan of Treatment Reminders Order Date Submit Date Provider Last Modified By Organization Details Last Modified Time Details Appointments None recorded. Lab unlisted lab - covid-19 (novel coronavirus ) PCR 2021 [address] [place] [id number] [facility] (Centralized Electronic Ordering - All Locations), Patient Can Go To The Location Of Their Choice, [id number] 2 10:14:48 BMP + ionized calcium, serum or plasma 2020 [facility], [address] [place], [address], 17:17:37 BMP + ionized calcium, serum or plasma [facility] [address] [facility] [address] [place], [address], 2 05:01:21 CBC w/ auto diff - Collected by [facility] 2020 [place] [facility]), Patient Can Go To The Location Of Their Choice, [id number] 00:44:12 Referral None recorded. Procedures None recorded. Surgeries None recorded. Imaging XR, chest, 2 view - Ordered by [facility] 2021 022 [facility] ([facility]), [address] [place], [address], 2 17:35:38 XR, foot, 3 or more view 2020 [facility] ([facility]), [address] [place], [address], 1 08:03:17 Medication Orders prednisone 10 mg tablet 2021 022 [email or web address] Not available 16:27:12 prednisone 20 mg tablet 2021 022 [email or web address] [id number], [address] [place], [place], [id number], 14:20:21 azithromyci n 250 mg tablet 2021 022 [id number], [address] [place], [place], [id number], 14:11:40 Voltaren Arthritis Pain 1 % topical gel 2020 021 [id number], [address], [place], [id number], 14:27:54 Patient TargetsNo targets recorded. Patient Instructions Encounter Date Encounter Id Patient Instructions Last Modified By Organization Details Last Modified Time 03/03/2021 [id number] gastroesophageal reflux disease (GERD): care instructions [email or web address] Not available 03/03/2021 14:03:36 Thank you for yo ur visit with [facility] today. We cannot always find the exact cause of your symptoms during your initial visit. Your potassium level was found to be low at 2.9 on exam. Please take 40meq of Potassium daily either in a single dose or a divided dose for the next 3 days, starting today. [facility] will come out to reevaluate your potassium level on Friday03/06/2021 You were seen today for right hip pain that comes and goes and seems to be nerve related. Continue with the CBD lotion to help with symptoms. Voltarn gel has also been sent in to see if it will help provide some relief. If this is not covered by your insurance you can get a lower concentration over the counter. You should follow up with a neurologist and/or a pain specialist to help further determine the cause of your pain and the best way to treat it. You asked about your Acid reflux and management of these symptoms. You should follow up with a Gastroentorologist for further evaluation and management of your symptoms You can try using Nexium over the counter 20-40mg to help with symptoms. If you try the Nexium you should stop the Protonix as these medicatons are in the same family. Please follow up with your primary care provider or specialist as needed to be rechecked or seek medical attention if your symptoms do not go away or get worse. If you develop any new or worsening symptoms and need after hours care, please go to nearest ER and/or call 911. If you have additional concerns or develop a change in your condition between 8am-10pm, please call [facility] at [phone] to help navigate your care. [email or web address] Not available 03/03/2021 13:58:24 Lab ResultsBMP + ionized calcium, serum or plasma glu: 144mg/dL ref: 70-105 BUN: 24mg/dL ref: 8-26 crea: 1.4mg/dL ref: 0.6-1.3 Na: 138mmol/L ref: 138-146 K: 2.9mmol/L ref: 3.5-4.9 cL: 91mmol/L ref: 98-109 TCO2: 31mmol/L ref: 24-29 angap: 20mmol/L ref: 10-20 ica: 1.23mmol/L ref: 1.12-1.32 HCT: 40%pcv ref: 38-51 Hb: 13.6g/dL ref: 12-17 [email or web address] Not available 03/03/2021 13:51:42 03/06/2021 [id number] WE CAME TO SEE Y OU TODAY TO FOLLOW UP ON LOW POTASSIUM LEVELS PLEASE KEEP YOUR APPOINTMENT WITH ENDOCRINE TODAY YOU NEED TO ESTABLISH CARE WITH A PCP- CALL THE 800 NUMBER ON THE BACK OF YOUR INSURANCE CARD TO GET REFERRALS TO PCPS IN YOUR AREA THAT ARE TAKING NEW PATIENTS I RECCOMEND THAT YOU CONTINUE TO DICLOFENAC GEL FOR YOUR LEG PAIN, YOU CAN ALSO ALTERNATE HEAT/ICE FOR COMFORT YOUR POTASSIUM IS IMPROVED BUT STILL ON THE LOW SIDE, I SUSEPCT THAT THIS IS DUE TO YOU BEING ON CHRONIC LASIX WHICH WILL CAUSE YOU TO LOOSE POTASSIUM. PLEASE CONTINUE TO TAKE 40MEQU A DAY AND WE WILL RECHECK LABS IN A WEEK. PLEASE CALL YOUR SEAM CHECKER THEY ARE THE ONE THAT PRESCRIBES THE LASIX AND YOU MAY NEED TO BE ON HALFWAY POTASSIUM SUPPLEMENTS WHICH [facility]LY [facility], [facility] CANNOT PRESCRIBE- THIS WOULD NEED TO COME FROM EITHER PCP OR SEAM CHECKER [email or web address] Not available 03/06/2021 10:18:00 11/04/2021 [id number] cough: care instructions Not available 11/04/2021 14:08:13 You have been se en by [facility] for productive cough. Upon assessment we found abnormal lung sounds. Chest x-ray was ordered to rule out pneumonia. Covid 19 test pending and you will be contacted if results are positive. Prednisone and Azithromycin was faxed over to your pharmacy. Please follow up with PCP or seek emergency service with worsening of symptoms, shortness of breath, chest pain, fever over 105 degrees. [email or web address] Not available 11/04/2021 14:15:25 11/06/2021 [id number] Inhaler Instruct ions Before use, you need to prime the inhaler: Take the cap off the mouthpiece and put the inhaler in the spacer Shake the inhaler for 5 seconds Hold the inhaler upright with 1 finger on the top of the canister, the thumb on the bottom of the inhaler, and your other hand holding the spacer Express a large breath Close lips around spacer Press down on the canister After you press down on the canister, breathe (or have your child breathe in) deeply and slowly and hold your breath for 10 seconds Take out of your mouth and slowly exhale If you were instructed to take 2 puffs of the inhaler, wait one minute before you give the second puff. Shake the inhaler again before the second puff. If the inhaler is a steroid medicine (also called a glucocorticoid or corticosteroid ), rinse out your mouth, gargle, and spit out the water Cleaning: If you use the inhaler every day, you need to clean it at least once a week. If you use less often, clean the inhaler when you see powder in or around the hole. To clean an inhaler: Remove the canister and cap from the mouthpiece. Do not wash the canister or put the canister under water. Run warm water through the mouthpiece for 30 to 60 seconds Shake the water off of the mouthpiece and let it air dry Clean the spacer every 1-2 weeks. First, remove the inhaler from the spacer. Wash the spacer with warm water and dishwashing soap, but do NOT rinse it. Then let it air dry. Leaving the spacer a little soapy after cleaning actually helps it work better. [email or web address] Not available 11/06/2021 08:56:33 Reason for Referral None Reported. Results Created Date Observation Date Name Description Value Unit Range Abnormal Flag Note LastModifiedBy Organization Detail LastModifiedTime 03/03/2003/04/2021 COMPL ETE CBC WITH DIFF WBC 11.2 K/mm3 (4.0-1 1.0) high Not Available [facility] (Centralized Electronic Ordering - All Locations) Patient Can Go To The Location Of Their Choice, 03/04/2021 00:44:12 03/03/2003/04/2021 COMPL ETE CBC WITH DIFF RBC 4.29 M/mm3 (4.70- 6.10) low Not Available [facility] (Centralized Electronic Ordering - All Locations) Patient Can Go To The Location Of Their Choice, 03/04/2021 00:44:12 03/03/2003/04/2021 COMPL ETE CBC WITH DIFF HGB 12.9 gm/dL (13.7- 17.1) low Not Available [facility] (Centralized Electronic Ordering - All Locations) Patient Can Go To The Location Of Their Choice, 03/04/2021 00:44:12 03/03/2003/04/2021 COMPL ETE CBC WITH DIFF HCT 41.2 % (40.5- 50.0) Not Available [facility] (Centralized Electronic Ordering - All Locations) Patient Can Go To The Location Of Their Choice, 03/04/2021 00:44:12 03/03/2003/04/2021 COMPL ETE CBC WITH DIFF MCV 96.0 fL (80.0- 94.0) high Not Available [facility] (Centralized Electronic Ordering - All Locations) Patient Can Go To The Location Of Their Choice, 03/04/2021 00:44:12 03/03/2003/04/2021 COMPL ETE CBC WITH DIFF MCH 30.1 pg (27.0- 34.0) Not Available [facility] (Centralized Electronic Ordering - All Locations) Patient Can Go To The Location Of Their Choice, 03/04/2021 00:44:12 03/03/2003/04/2021 COMPL ETE CBC WITH DIFF MCHC 31.3 g/dL (33.0- 37.0) low Not Available [facility] (Centralized Electronic Ordering - All Locations) Patient Can Go To The Location Of Their Choice, 03/04/2021 00:44:12 03/03/2003/04/2021 COMPL ETE CBC WITH DIFF plt 304 K/mm3 (150-4 60) Not Available [facility] (Centralized Electronic Ordering - All Locations) Patient Can Go To The Location Of Their Choice, 03/04/2021 00:44:12 03/03/2003/04/2021 COMPL ETE CBC WITH DIFF RDW-SD 50.3 fL (<47.0 ) high Not Available [facility] (Centralized Electronic Ordering - All Locations) Patient Can Go To The Location Of Their Choice, 03/04/2021 00:44:12 03/03/2003/04/2021 COMPL ETE CBC WITH DIFF MPV 9.8 fL (9.4-1 2.4) Not Available [facility] (Centralized Electronic Ordering - All Locations) Patient Can Go To The Location Of Their Choice, 03/04/2021 00:44:12 03/03/2003/04/2021 COMPL ETE CBC WITH DIFF automated NRBC 0.0 #/100 _WBC' s Not Available [facility] (Centralized Electronic Ordering - All Locations) Patient Can Go To The Location Of Their Choice, 03/04/2021 00:44:12 03/03/2003/04/2021 COMPL ETE CBC WITH DIFF abs. NRBC 0.0 K/mm3 Not Available [facility] (Centralized Electronic Ordering - All Locations) Patient Can Go To The Location Of Their Choice, 03/04/2021 00:44:12 03/03/2003/04/2021 COMPL ETE CBC WITH DIFF neut # 8.0 K/mm3 (1.3-7 .0) high Not Available [facility] (Centralized Electronic Ordering - All Locations) Patient Can Go To The Location Of Their Choice, 03/04/2021 00:44:12 03/03/2003/04/2021 COMPL ETE CBC WITH DIFF lymph # 2.2 K/mm3 (0.8-3 .1) Not Available [facility] (Centralized Electronic Ordering - All Locations) Patient Can Go To The Location Of Their Choice, 03/04/2021 00:44:12 03/03/2003/04/2021 COMPL ETE CBC WITH DIFF mono# 0.7 K/mm3 (0.4-1 .3) Not Available [facility] (Centralized Electronic Ordering - All Locations) Patient Can Go To The Location Of Their Choice, 03/04/2021 00:44:12 03/03/2003/04/2021 COMPL ETE CBC WITH DIFF eo # 0.2 K/mm3 (0.0-0 .4) Not Available [facility] (Centralized Electronic Ordering - All Locations) Patient Can Go To The Location Of Their Choice, 03/04/2021 00:44:12 03/03/2003/04/2021 COMPL ETE CBC WITH DIFF baso # 0.0 K/mm3 (0.0-0 .1) Not Available [facility] (Centralized Electronic Ordering - All Locations) Patient Can Go To The Location Of Their Choice, 03/04/2021 00:44:12 03/03/2003/04/2021 COMPL ETE CBC WITH DIFF abs. imm gran 0.1 K/mm3 Not Available [facility] (Centralized Electronic Ordering - All Locations) Patient Can Go To The Location Of Their Choice, 03/04/2021 00:44:12 03/03/2003/04/2021 COMPL ETE CBC WITH DIFF neut 71.4 % (44-76 ) Not Available [facility] (Centralized Electronic Ordering - All Locations) Patient Can Go To The Location Of Their Choice, 03/04/2021 00:44:12 03/03/2003/04/2021 COMPL ETE CBC WITH DIFF lymph 19.2 % (15-43 ) Not Available [facility] (Centralized Electronic Ordering - All Locations) Patient Can Go To The Location Of Their Choice, 03/04/2021 00:44:12 03/03/2003/04/2021 COMPL ETE CBC WITH DIFF monocyte 6.6 % (4.5-1 0.5) Not Available [facility] (Centralized Electronic Ordering - All Locations) Patient Can Go To The Location Of Their Choice, [id number] 03/04/2021 00:44:12 03/03/2003/04/2021 COMPL ETE CBC WITH DIFF eo 2.1 % (0-6) Not Available [facility] (Centralized Electronic Ordering - All Locations) Patient Can Go To The Location Of Their Choice, [id number] 03/04/2021 00:44:12 03/03/2003/04/2021 COMPL ETE CBC WITH DIFF baso 0.3 % (0-2) Not Available [facility] (Centralized Electronic Ordering - All Locations) Patient Can Go To The Location Of Their Choice, [id number] 03/04/2021 00:44:12 03/03/2003/04/2021 COMPL ETE CBC WITH DIFF imm gran 0.4 % Not Available [facility] (Centralized Electronic Ordering - All Locations) Patient Can Go To The Location Of Their Choice, [facility] 03/04/2021 00:44:12 03/03/2003/03/2021 BMP + IONIZ ED CALCI UM, SERUM OR PLASM A glu 144 mg/dL 70-105 Not Available [facility] [place], [address], 03/03/2021 13:50:34 03/03/20 21 03/03/2021 BMP + IONIZ ED CALCI UM, SERUM OR PLASM A BUN 24 mg/dL 8-26 Not Available Den [facility] [address] [place], [address], 03/03/2021 13:50:34 03/03/2003/03/2021 BMP + IONIZ ED CALCI UM, SERUM OR PLASM A crea 1.4 mg/dL 0.6-1. 3 Not Available Den [place] [facility] [address] [place], [address], 03/03/2021 13:50:34 03/03/20 21 03/03/2021 BMP + IONIZ ED CALCI UM, SERUM OR PLASM A Na 138 mmol/ L 138-14 6 Not Available [address], [address], 03/03/2021 13:50:34 03/03/20 21 03/03/2021 BMP + IONIZ ED CALCI UM, SERUM OR PLASM A K 2.9 mmol/ L 3.5-4. 9 Not Available [address], [address], 03/03/2021 13:50:34 03/03/20 21 03/03/2021 BMP + IONIZ ED CALCI UM, SERUM OR PLASM A cL 91 mmol/ L 98-109 Not Available [address], [address], 03/03/2021 13:50:34 03/03/20 21 03/03/2021 BMP + IONIZ ED CALCI UM, SERUM OR PLASM A TCO2 31 mmol/ L 24-29 Not Available [address], [address], 03/03/2021 13:50:34 03/03/20 21 03/03/2021 BMP + IONIZ ED CALCI UM, SERUM OR PLASM A angap 20 mmol/ L 10-20 Not Available [address], [address], 03/03/2021 13:50:34 03/03/20 21 03/03/2021 BMP + IONIZ ED CALCI UM, SERUM OR PLASM A ica 1.23 mmol/ L 1.12-1 .32 Not Available [address], [address], 03/03/2021 13:50:34 03/03/20 21 03/03/2021 BMP + IONIZ ED CALCI UM, SERUM OR PLASM A HCT 40 %pcv 38-51 Not Available Den [facility] [address], [address], 03/03/2021 13:50:34 03/03/20 21 03/03/2021 BMP + IONIZ ED CALCI UM, SERUM OR PLASM A Hb 13.6 g/dL 12-17 Not Available [address], [address], 03/03/2021 13:50:34 03/06/20 21 03/06/2021 BMP + IONIZ ED CALCI UM, SERUM OR PLASM A glu 183 mg/dL 70-105 Not Available [address], [address], 03/08/2021 17:17:37 03/06/20 21 03/06/2021 BMP + IONIZ ED CALCI UM, SERUM OR PLASM A BUN 19 mg/dL 8-26 Not Available [address], [address], 03/08/2021 17:17:37 03/06/20 21 03/06/2021 BMP + IONIZ ED CALCI UM, SERUM OR PLASM A crea 1.2 mg/dL 0.6-1. 3 Not Available [address], [address], 03/08/2021 17:17:37 03/06/20 21 03/06/2021 BMP + IONIZ ED CALCI UM, SERUM OR PLASM A Na 138 mmol/ L 138-14 6 Not Available [address], [address], 03/08/2021 17:17:37 03/06/20 21 03/06/2021 BMP + IONIZ ED CALCI UM, SERUM OR PLASM A K 3.3 mmol/ L 3.5-4. 9 Not Available [address], [address], 03/08/2021 17:17:37 03/06/20 21 03/06/2021 BMP + IONIZ ED CALCI UM, SERUM OR PLASM A cL 91 mmol/ L 98-109 Not Available [address], [address], 03/08/2021 17:17:37 03/06/20 21 03/06/2021 BMP + IONIZ ED CALCI UM, SERUM OR PLASM A TCO2 31 mmol/ L 24-29 Not Available [address], [address], 03/08/2021 17:17:37 03/06/20 21 03/06/2021 BMP + IONIZ ED CALCI UM, SERUM OR PLASM A angap 21 mmol/ L 10-20 Not Available [address], [address], 03/08/2021 17:17:37 03/06/20 21 03/06/2021 BMP + IONIZ ED CALCI UM, SERUM OR PLASM A ica 1.17 mmol/ L 1.12-1 .32 Not Available [address], [address], 03/08/2021 17:17:37 03/06/20 21 03/06/2021 BMP + IONIZ ED CALCI UM, SERUM OR PLASM A HCT 39 %pcv 38-51 Not Available [address], [address], 03/08/2021 17:17:37 03/06/20 21 03/06/2021 BMP + IONIZ ED CALCI UM, SERUM OR PLASM A Hb 13.3 g/dL 12-17 Not Available [address], [address], 03/08/2021 17:17:37 11/05/19 22 11/06/2021 COVID -19 NOVEL CORON AVIRU S, (RT)- PCR covid-19, (RT)-PCR (neg) NEGAT JACOB 2019- novel Coron aviru s (2019 -nCoV ) not detec dottie by the qRT-P CR assay . If clini david suspi cion for COVID -19 is high, chong nue to maint ain preca ution s and consi allison repea t testi ng. Resul t repor dottie to the [facility]. This test has been autho rized by the FDA under an Emerg ency Use Autho rizat ion (EUA) for use by autho rized labor atori es. Test perfo rmed by Clini david [facility] Shamika zambrano, JAGUAR at the [facility] of [facility] [[email or web address]] and Annmarie claros, [address] [place] [address] . CLIA ID: [id number] , CAP: [id number] 96. Medic al Direc tor: Caitlin Wells, PhD FACMG (NOTE ) The [facility] SARS- CoV-2 Real- time Rever se Trans cript ase (RT)- PCR Diagn ostic Assay is a real- time RT-PC R test inten ded for the quali tativ e detec tion of nucle ic acid from the SARS- CoV-2 in nasop haryn geal and oroph aryng eal swabs colle cted from indiv idual s who may have contr acted the virus . Testi ng is limit ed to the Clini david [facility] Shamika zambrano at the [facility] which is certi fied under the Clini david Labor atory Impro vemen t Amend ments of 1987 (CLIA ), 42 U.S.C . ?263a , to perfo rm high compl exity tests . = Posit jacob resul ts are indic ative of activ e infec tion with SARS- CoV-2 but do not rule out bacte rial infec tion or co-in fecti on with other virus es. The agent detec dottie may not be the defin ite cause of disea se. In addit ion, nucle ic acid detec tion can persi st follo wing clear ance of activ e viral repli catio n. Labor atori es withi n the [place] s and its driss sudeep s are requi red to repor t all posit jacob resul ts to the appro priat e publi c healt h autho ritie s. = Negat jacob resul ts do not precl ude SARS- CoV-2 infec tion and shoul d not be used as the sole basis for patie nt treat ment or other patie nt manag ement decis ions. Negat jacob resul ts must be combi rodney with clini david obser vatio ns, patie nt histo ry, and epide miolo gical infor matio n. Not Available [facility] (Centralized Electronic Ordering - All Locations) Patient Can Go To The Location Of Their Choice, [id number] 11/06/2021 09:19:20 03/15/20 21 XR, foot, 3 or more view No observ ation record ed. [facility] [employer] ([employer]) [address] [facility], [place], [address], 03/15/2021 08:28:37 11/05/19 22 11/04/2021 XR, chest , 2 view XRAY CHEST 2 VIEW FINDIN GS: The cardia c silhou ette is mildly enlarg ed. The lungs are clear, withou t mass or infilt rate. No acute osseou s abnorm ality is visual ized. Mild degene rative change s are seen. Diffus e osseou s demine raliza tion is noted. Radiod ensiti es overli e the patien t, possib ly artifa ctual. Old healed right rib fractu res are seen. Mild degene rative change s are seen. CONCLU ANANDA: No acute cardio pulmon matti diseas e. The findin gs are improv ed from 020. ELECTR ONICAL LY SIGNED BY OSIRIS REYNOLDS D.O. 022 5:20:3 6 PM EDT. XRAY CHEST 2 VIEW Result s: The cardia c silhou ette is mildly enlarg ed. The lungs are clear, withou t mass or infilt rate. No acute osseou s abnorm ality is visual ized. Mild degene rative change s are seen. Diffus e osseou s demine raliza tion is noted. Radiod ensiti es overli e the patien t, possib ly artifa ctual. Old healed right rib fractu res are seen. Mild degene rative change s are seen. Conclu ananda: No acute cardio pulmon matti diseas e. The findin gs are improv ed from 25OCT2 020. Electr onical ly signed by OSIRIS REYNOLDS D.O. 022 5:20:3 6 PM EDT. [email or web address] [address] [facility] [address], [place], [address], 11/05/2021 11:18:22 Result Notes Documentation Provider Name and Address Organization Details Recorded Time Xr, Chest, 2 View : XRAY CHEST 2 VIEW FINDINGS: The cardiac silhouette is mildly enlarged. The lungs are clear, without mass or infiltrate. No acute osseous abnormality is visualized. Mild degenerative changes are seen. Diffuse osseous demineralization is noted. Radiodensities overlie the patient, possibly artifactual. Old healed right rib fractures are seen. Mild degenerative changes are seen. CONCLUSION: No acute cardiopulmonary disease. The findings are improved from [id number]. ELECTRONICALLY SIGNED BY OSIRIS VARGAS D.O. 11/04/2021 5:20:36 PM EDT. XRAY CHEST 2 VIEW Results: The cardiac silhouette is mildly enlarged. The lungs are clear, without mass or infiltrate. No acute osseous abnormality is visualized. Mild degenerative changes are seen. Diffuse osseous demineralization is noted. Radiodensities overlie the patient, possibly artifactual. Old healed right rib fractures are seen. Mild degenerative changes are seen. Conclusion: No acute cardiopulmonary disease. The findings are improved from [id number]. Electronically signed by OSIRIS VARGAS D.O. 11/04/2021 5:20:36 PM EDT. Kerrie aceves, [place] - [facility] 11/05/2021 11:18:22 Problems Name Problem SNOMED Code Status Onset Date Resolution Date Notes Provider Name and Address Organization Details Recorded Time Diabetes mellitus 08455133 Active [address] OLGUIN NP [address] [place], [address], [place] [facility] 0 14:35:03 Problem Notes None recorded. Procedures Surgical History Date Name Laterality Status Provider Name and Address Organization Details Recorded Time 03/06/20 21 Venipuncture - DH completed DALIA URBINA NP [address], [place], [address], [place] [facility] 03/06/2021 10:30:22 03/03/20 21 Venipuncture - DH completed GABY APARICIO NP [address], [place], [address], [place] [facility] 03/03/2021 13:40:38 03/03/20 21 ECG Interpretation - completed GABY APARICIO NP [address], [place], [address], [place] [facility] 03/03/2021 14:30:14 06/20/20 20 Venipuncture - completed BOGDAN REHMAN [address], [place], [address], [place] [facility] 06/20/2020 15:33:27 06/17/20 20 Venipuncture - completed AVE OLGUIN NP [address] [place], [address], [place] [facility] 06/17/2020 15:04:05 Imaging Results None recorded. Procedure Notes None recorded. Medical Equipment None Reported. Allergies Allergen ID Allergen Name Allergen Category Reaction Reaction Severity Criticality Documentation Date Start Date Code Code System Note Provider Name and Address Organization Details Recorded Time 783324 Compazine medicatio n Not available Not available Not available 06/17/202081937 [address] OLGUIN NP [address], [place], [address], [place] [facility] 0 14:34:21 140860 Non-stero idal anti-infl ammatory agent (product) medicatio n Not available Not available Not available 06/17/[address] OLGUIN NP [address], [place], [address], [place] [facility] 0 14:34:31 346014 Wellbutri n medicatio n Not available Not available Not available 06/17/[address] OLGUIN, LISA [address] [facility], [address], [place] [facility] 0 14:34:46 Medications Name Sig Start Date Stop Date Status Note LastModified by Organization Details LastModified Time bchz ketamine 10% pain en APPLY 4-5 GRAMS (4-5 PUMPS) TOPICALLY TO AFFECTED AREA TWICE DAILY active Not Available Not Available No t Available furosemide 40 mg tablet TAKE 1 TABLET BY MOUTH EVERY DAY FOR 7 DAYS 11/04 completed Not Available Not Available Not Available atorvastati n 40 mg tablet TAKE 1 TABLET BY MOUTH EVERY DAY active Not Available Not Available No t Available methocarbam ol 500 mg tablet TAKE 1 TABLET BY MOUTH EVERY 6 HOURS NEEDED FOR MUSCLE SPASM active Not Available Not Available No t Available atorvastati n 80 mg tablet 11/04 completed Not Available Not Available Not Available prednisone 10 mg tablet 20 mg PO administe red on scene. Time administe red:1409 2021 active Not Available Not Available Not Avai lable ipratropium 0.5 mg-albutero l 3 mg (2.5 mg base)/3 mL nebulizatio n soln USE 3 ML VIA NEBULIZER FOUR TIMES DAILY active Not Available Not Available No t Available albuterol sulfate 2.5 mg/3 mL (0.083 %) solution for nebulizatio n USE 3 ML VIA NEBULIZER EVERY 4 HOURS NEEDED active Not Available Not Available No t Available azithromyci n 250 mg tablet TAKE 2 TABLETS (500 MG) BY ORAL ROUTE ONCE DAILY FOR 1 DAY THEN 1 TABLET (250 MG) BY ORAL ROUTE ONCE DAILY FOR 4 DAYS active Not Available Not Available No t Available Senna Lax 8.6 mg tablet TAKE 2 TABLETS BY MOUTH DAILY FOR 14 DAYS active Not Available Not Available No t Available chlorpromaz ine 100 mg tablet active Not Available Not Available Not Available sucralfate 100 mg/mL oral suspension TAKE 10 ML BY MOUTH BEFORE MEALS AND EVERY NIGHT AT BEDTIME NEEDED FOR HEART BURN. active Not Available Not Available No t Available prednisone 20 mg tablet TAKE 1 TABLET BY MOUTH EVERY DAY FOR 6 DAYS DIRECTED active Not Available Not Available No t Available Lantus U-100 Insulin 100 unit/mL subcutaneou s solution INJECT 35 UNDER THE SKIN AT BEDTIME active Not Available Not Available No t Available amlodipine 2.5 mg tablet active Not Available Not Available Not Available potassium chloride ER 10 mEq tablet,exte nded release 40 mEq PO administe red on scene. Time administe red:12:15 pm 03/03 completed Not Available Not Available Not Available chlorthalid one 25 mg tablet TAKE 1 TABLET BY MOUTH EVERY DAY IN THE MORNING WITH FOOD active Not Available Not Available No t Available peg-electro lyte solution 420 gram oral solution active Not Available Not Available Not Available acetaminoph en 500 mg tablet TK 1 T PO Q 6 H PRN P. NOT TO EXCEED 4000MG/DA Y 03/03 completed Not Available Not Available Not Available spironolact one 25 mg tablet 11/04 completed Not Available Not Available Not Available pantoprazol e 20 mg tablet,james yed release TAKE 1 TABLET BY MOUTH EVERY DAY 03/03 completed Not Available Not Available Not Available oxycodone-a cetaminophe n 5 mg-325 mg tablet 03/03 completed Not Available Not Available Not Available erythromyci n 250 mg tablet 11/04 completed Not Available Not Available Not Available potassium chloride ER 20 mEq tablet,exte nded release(par t/cryst) TAKE 3 TABLETS BY MOUTH EVERY DAY WITH FOOD DIRECTED 11/04 completed Not Available Not Available Not Available pravastatin 80 mg tablet 03/03 completed Not Available Not Available Not Available prednisolon e acetate 1 % eye drops,suspe nsion SHAKE LIQUID AND INSTILL 1 DROP IN BOTH EYES TWICE DAILY DIRECTED active Not Available Not Available No t Available lorazepam 0.5 mg tablet active Not Available Not Available Not Available DOK 100 mg capsule TAKE 2 CAPSULES BY MOUTH TWICE DAILY FOR 14 DAYS active Not Available Not Available No t Available furosemide 80 mg tablet TAKE 1 TABLET BY MOUTH TWICE DAILY 11/04 completed Not Available Not Available Not Available amlodipine 10 mg tablet TAKE 1 TABLET BY MOUTH EVERY DAY 11/04 completed Not Available Not Available Not Available paroxetine 30 mg tablet TAKE 2 TABLETS BY MOUTH EVERY MORNING 03/03 completed Not Available Not Available Not Available pantoprazol e 40 mg tablet,james yed release TAKE 1 TABLET BY MOUTH EVERY DAY active Not Available Not Available No t Available ferrous sulfate 325 mg (65 mg iron) tablet TAKE 1 TABLET BY MOUTH ONCE DAILY active Not Available Not Available No t Available lisinopril 30 mg tablet 03/03 completed Not Available Not Available Not Available bisacodyl 5 mg tablet,james yed release active Not Available Not Available Not Available furosemide 20 mg tablet TAKE 1 TABLET BY MOUTH TWICE DAILY active Not Available Not Available No t Available Novolog U-100 Insulin aspart 100 unit/mL subcutaneou s solution INJECT A MAX OF 120 UNITS UNDER THE SKIN DAILY active Not Available Not Available No t Available lorazepam 1 mg tablet 03/03 completed Not Available Not Available Not Available Cipro HC 0.2 %-1 % ear drops,suspe nsion SHAKE LIQUID AND INSTILL 3 DROPS TO AFFECTED EAR TWICE DAILY FOR 7 DAYS 03/03 completed Not Available Not Available Not Available cefuroxime axetil 500 mg tablet 03/03 completed Not Available Not Available Not Available levofloxaci n 750 mg tablet Take 1 tablet every day by oral route for 5 days. 03/03 completed Not Available Not Available Not Available ferrous sulfate 325 mg (65 mg iron) tablet,james yed release TAKE 1 TABLET BY MOUTH DAILY 11/04 completed Not Available Not Available Not Available lisinopril 40 mg tablet TAKE 1 TABLET BY MOUTH DAILY active Not Available Not Available No t Available insulin syringe U-100 with needle 0.5 mL 31 gauge x 5/16 USE TO INJECT INSULIN 12 TIMES DAILY active Not Available Not Available No t Available Ketostix strips active Not Available Not Available Not Available spironolact one 50 mg tablet active Not Available Not Available Not Available diazepam 5 mg tablet 03/03 completed Not Available Not Available Not Available metoclopram trina 10 mg tablet active Not Available Not Available Not Available amoxicillin 875 mg-potassiu m clavulanate 125 mg tablet TAKE 1 TABLET BY MOUTH TWICE DAILY FOR 7 DAYS 03/03 completed Not Available Not Available Not Available Ventolin HFA 90 mcg/actuati on aerosol inhaler active Not Available Not Available Not Available oxycodone 5 mg tablet TAKE 1 TABLET BY MOUTH TWICE DAILY NEEDED 11/04 completed Not Available Not Available Not Available aripiprazol e 30 mg tablet TAKE 1 TABLET BY MOUTH DAILY active Not Available Not Available No t Available Novolog FlexPen U-100 Insulin aspart 100 unit/mL (3 mL) subcutaneou s MAX DAILY DOSE 140 UNITS active Not Available Not Available No t Available rosuvastati n 40 mg tablet active Not Available Not Available Not Available BD Ultra-Fine Mini Pen Needle 31 gauge x 3/16 USE DIRECTED TO INJECT INSULIN UP TO 8 TIMES DAILY active Not Available Not Available No t Available pregabalin 150 mg capsule TAKE 1 CAPSULE BY MOUTH TWICE DAILY active Not Available Not Available No t Available Co Q-10 active Not Available Not Avail able Not Available hydrochloro thiazide 03/03 completed Not Available Not Available Not Available Levemir U-100 Insulin 100 unit/mL subcutaneou s solution INJECT 135 UNITS UNDER THE SKIN EVERY NIGHT AT BEDTIME 03/03 completed Not Available Not Available Not Available BD Insulin Syringe Ultra-Fine 0.5 mL 30 gauge x 1/2 USE TO INJECT INSULIN 12 TIMES DAILY 03/03 completed Not Available Not Available Not Available diclofenac 1 % topical gel APPLY 2 GRAMS TO THE AFFECTED AREA(S) BY TOPICAL ROUTE 4 TIMES PER DAY active Not Available Not Available No t Available Arnuity Ellipta 100 mcg/actuati on powder for inhalation INHALE 1 PUFF BY MOUTH EVERY DAY active Not Available Not Available No t Available Toujeo SoloStar U-300 Insulin 300 unit/mL (1.5 mL) subcutaneou s pen INJECT A MAX DAILY DOSE OF 60 UNITS UNDER THE SKIN DAILY active Not Available Not Available No t Available Humalog KwikPen U-200 Insulin 200 unit/mL (3 mL) subcutaneou s active Not Available Not Available Not Available Tresiba FlexTouch U-200 insulin 200 unit/mL (3 mL) subcutaneou s pen active Not Available Not Available Not Available 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 Not Available Not Available Not Available Afluria Qd 2018- (36 mos up)(PF)60 mcg (15 mcg x4)/0.5 mL IM syringe ADM 0.5ML IM UTD 03/03 completed Not Available Not Available Not Available Baqsimi 3 mg/actuatio n nasal spray SPRAY 3MG INTO LEFT NOSTRIL ONCE IN THE EVENT OF SEVERE LOW BLOOD SUGAR active Not Available Not Available No t Available Flucelvax Quad (PF) 60 mcg (15 mcg x 4)/0.5 mL IM syringe ADM 0.5ML IM UTD 03/03 completed Not Available Not Available Not Available Vitals Date Recorded Body temperature Oxygen saturation Oxygen saturation in Arterial blood by Pulse oximetry Respiratory rate Heart rate Systolic And Diastolic Provider Name and Address Organization Details Last Updated DateTime 2 98.2 [degF] 93 % 93 % 18 /min 82 /min 118/60 mm[Hg] Not Available [facility] 2 13:51:24 Date Recorded Respiratory rate Oxygen saturation Oxygen saturation in Arterial blood by Pulse oximetry Body temperature Heart rate Systolic And Diastolic Provider Name and Address Organization Details Last Updated DateTime 2 22 /min 93 % 93 % 98.4 [degF] 73 /min 136/82 mm[Hg] Not Available [facility] 2 08:52:26 Date Recorded Respiratory rate Oxygen saturation Oxygen saturation in Arterial blood by Pulse oximetry Body temperature Heart rate Systolic And Diastolic Provider Name and Address Organization Details Last Updated DateTime 1 22 /min 92 % 92 % 98.3 [degF] 88 /min 118/76 mm[Hg] Not Available [facility] 1 13:16:50 Date Recorded Heart rate Oxygen saturation Oxygen saturation in Arterial blood by Pulse oximetry Respiratory rate Body temperature Systolic And Diastolic Provider Name and Address Organization Details Last Updated DateTime 1 84 /min 97 % 97 % 18 /min 98.4 [degF] 132/78 mm[Hg] Not Available [facility] 1 10:02:01 Date Recorded Heart rate Oxygen saturation Oxygen saturation in Arterial blood by Pulse oximetry Body temperature Respiratory rate Systolic And Diastolic Provider Name and Address Organization Details Last Updated DateTime 1 84 /min 98 % 98 % 97.4 [degF] 22 /min 122/84 mm[Hg] Not Available [facility] 1 11:06:07 Social History Question Answer Notes LastModified by Organizat ion Details LastModified Time Tobacco Smoking Status Never Smoker BOGDAN REHMAN [address] [place], [address], [place] [facility] 06/20/2020 11:40:47 What Is Your Code Status? Full Code [email or web address] Information not available 06/20/2020 Within The Past 12 Months, Has It Happened That The Food You Bought Just Didn't Last And You Didn't Have Money To Get More. No [email or web address] Information not available 06/20/2020 Within The Past 12 Months, Have You Worried That Your Food Would Run Out Before You Got Money To Buy More. No [email or web address] Information not available 06/20/2020 Fall Risk: Do You Feel Unsteady When Standing Or Walking? Yes [email or web address] Information not available 06/20/2020 We Know That How And When People Interact With Friends And Family Can Be Very Different From Person To Person. How Often Do You Have The Opportunity To See Or Talk To People That You Care About And Feel Close To? (Ex: Talking To Friends On The Phone Or Visiting Friends Or Family Or Going To Latter [employer] Or Club Meetings) 3 Or 4 Times Per Week [email or web address] Information not available 06/20/2020 We Know From Many Of Our Patients That Covering All Of Their Costs Can Be Difficult At Times. This Can Cause Stress And Impact Health. In The Past Year, Have You Been Unable To Get Any Of The Following When It Was Really Needed? No [email or web address] Information not available 06/20/2020 What Is Your Housing Situation Today? I Have Housing [email or web address] Information not available 06/20/2020 Would You Like Help Connecting To Resources? None [email or web address] Information not available 06/20/2020 Sex: Unknown Functional Status None recorded. Mental Status None recorded. Family History Nothing Reported. Medical History Condition Response Diabetes Y Coronary Artery Disease N High Cholesterol Y Cancer N Pulmonary Embolism N Stroke N Hypertension Y Asthma Y COPD N Depression Y Kidney Disease N Past Encounters Encounter ID Performer Location Encounter Start Date Encounter Closed Date Diagnosis/Indication Diagnosis SNOMED-CT Code Diagnosis ICD10 Code Diagnosis Note [id number] OLGUIN NP [facility] - [facility] [address] [facility] [place] [address] 06/17/2020 13:36:00 06/19/2020 01:01:28 Syncope 723593201 R55 Hypokalemia 44124595 E87 .6 Hypoxia 470314556 G47.34 [id number] BOGDAN REHMAN [facility] - [facility] [address] [facility] [place] [address] 06/20/2020 11:22:36 06/21/2020 09:24:55 Pneumonia 499077682 J18.9 Hypokalemia 67265753 E87 .6 [id number] GABY APARICIO NP SPR - HOME [address] [place] [address] 03/03/2021 13:10:48 03/06/2021 13:14:46 Hyperglycemia 91559617 R73.9 Type 1 [place] mellitus 68657966 E10.9 Pain of ri ght hip joint 4264503706 08677 M25.551 Neuropathy 161470542 G62 .9 Gastroesop hageal reflux disease 886821543 K21.9 Hypokalemia 96218299 E87 .6 [id number] DALIA URBINA NP [facility] - [facility] [address] [place] [address] 03/06/2021 09:59:06 03/06/2021 14:11:50 Hypokalemia 63493722 E87.6 Type 1 [place] betes mellitus 69513371 E10.8 [id number] BOGDAN FORTUNE [facility] - [facility] [address] [place] [address] 03/14/2021 10:59:36 03/15/2021 20:11:28 Sprain of interphalangeal joint of toe 40892617 S93.509A Hypokalemia 89016338 E87 .6 Gastroesop hageal reflux disease without esophagitis 456830655 K21.9 [id number] Melissa Guajardo NP [facility] - HOME [address] [place] [address] 11/04/2021 13:45:05 11/06/2021 19:57:33 Acute exacerbation of chronic obstructive pulmonary disease 758897656 J44.1 Cough 61292147 R05.1 Exposure t o communicable disease 299865200 Z20.822 [id number] BOGDAN Montiel [facility] - [facility] [address] [place] [address] 11/06/2021 08:47:37 11/06/2021 19:57:43 Health Concerns Section Related Observation LastModified by Organization Detai ls LastModified Time None Recorded Concern Status LastModified by Organization Details LastModified Time None Recorded Advance Directives Directive None Recorded Payers Insurance Date Sequence Insurance Name Policy Number Policy Rodriguez Covered Member ID Rodriguez Member ID Guarantor Name 06/16/2020 1 *SELF PAY* Shubham Pappas [id number] Shubham Pappas 06/16/2020 1 [employer] (MEDICARE REPLACEMENT/A DVANTAGE - HMO) Shubham Pappas [id number] Shubham Pappas 11/06/2021 2 [place] [facility] Shubham Pappas [id number] Shubham Pappas 11/04/2021 1 [place]IC[place] B[place] [employer] Shubham Pappas [id number] Shubham Pappas Notes Date Note Type Note Provider Name and Address Organization Details Recorded Time 03/03/2021 text/html Pt reports a 2 month hx of right hip pain. He states he went to his PCP and states the PCP didn't want to exam the hip. Pt reports that the pain is intermittent, states she has a PT that comes and PT and pt suspect it is nerve related. Pt reports he has neuropathy r/t DM Type 1. States it is difficult for him to describe the pain. State the lyrica normally helps with his nerve pain but has not been helping with his hip. Pt reports that over the last 1-2 weeks he has had signficant fluctations in his FSBS. Last A1C was in the 6s per pt. Pt reports that CBD cream has helped with the pain briefly. GABY APAIRCIO, LISA [address], [place], [address], [place] [facility] 03/03/2021 15:32:31 03/06/2021 text/html This is a 45-year-old male that [facility], new to this provider. His medical history significant for depression, diabetes, asthma, hyperlipidemia, hypertension and he reports good. He is no longer following with his primary care provider over a disagreement. He is not yet established care with a new PCP. He does have an appointment with endocrinology today. He was seen earlier this week by [facility] for complaints of hip pain and possible neuropathy. At that time he was found have a low potassium level and recommended to start oral repletion. He is chronically on furosemide and has been on chronic repletion of potassium in the past. He does see someone from cardiology that says he will not be seeing them for a year. He also tells me he had an episode of passing out for which someone ordered a 30 day event monitor for him. It is not clear who is prescribing his furosemide. He did go to the emergency department later in the day on 03/03 which was the last day that [facility] was out to see him. He went there with complaints of shortness of breath, he had a normal CT scan of the chest. He is also given muscle relaxers for his thigh pain and reassured that he did not show evidence of a blood clot. Case management at [facility] is supposed to also follow up with the patient to try and help him establish care with a PCP. DALIA URBINA NP [address], [place], [address], [place] [facility] 03/06/2021 12:02:59 03/14/2021 text/html 45 y/o M with PM Hx sig for asthma, depression, DM, HLD, HTN, SABRINA, known to but new to this provider, who presents w/ c/o chronic GERD and broken toe. Patient states that his PCP quit and he has new pt appt with Dr. Monge next month. He tried switching his Protonix to Prilosec because it was only helping 70% but he states he is doing worse on the Prilosec. He has also been trying tums with minimal relief. States he had a swallow test that was normal, has not seen GI. He states water is the worst and always comes back up, but he is able to keep 70% of food down and denies abdominal pain, abnormal weight loss, hematemesis, or melena. Denies eating sour, spicy, or greasy food. Tried probiotics but gave him diarrhea. He stubbed his 5th right toe on the end table yesterday and today and thinks he broke it and states that he cannot bear any weight on his foot. BOGDAN FORTUNE [address], [place], [address], [place] [facility] 03/14/2021 12:08:27 11/04/2021 text/html 46 y/o M with PM Hx sig for asthma, depression, DM, HLD, HTN, SABRINA, COPD, known to but new to this provider, who presents productive cough x one week and fever for days . He is taking Tylenol and Mucinex. He has not taken his temperature but feels as though he had one. He took a total two left over abx three days ago and started feeling better, however symptoms returned. He has been taking his nebulizer treatment with temp. relief. Believes he has/had Covid although he was not tested. Melissa Guajardo NP [address], [place], [address], [place] [facility] 11/04/2021 15:58:34 11/06/2021 text/html 46 yo male new t o provider known to [facility] [place] ago for ?COPD exac/acute bronchCXR was (-) for aacute cardiopulm diseasept called yesterday saying he thought he might have PNAhe is seen this AMhe reports I saw my xray I have pneumonia we discuss resultswe discuss the pathophys of PNA vs bronchitishe then reports im doing better this AM he is taking his prednisone and milliestephania continues his maintenance inhalers - elliptaand albuterol nebs 3-4x/day nowno chest pain no sobno N V F Cno hx of intubation BOGDAN Montiel [address], [place], [address], [place] [facility] 11/06/2021 09:30:15
--- OUTSIDE RECORDS SUMMARY | 2025-03-10 15:10 | XMS_ITS | Clinical Summary ---
Author Organization [facility] Address [address] [address] Phone Care Team Providers Care Multicultural Manager Name Role Phone Doretha Pablo MD Primary Care Provider [phone] Allergies Active Allergy Reactions Criticality Noted Date [...] Office Visit [facility] [address] [phone] Romario Gifford MD [address] [address] Health Maintenance Due Date Last Done Comments Hepatitis B Vaccine (1 of 3 - 19+ 3-dose series) 1994 Diabetes: Ophthalmology Exam 09/18/2021 Diabetes: Pedal Pulse Checked 09/18/2021 Diabetes: Sensory Foot Exam 09/18/2021 Diabetes: Visual Foot Exam 09/18/2021 Colorectal Cancer Screening: Annual FOBT 2024 Colorectal Cancer Screening: Colonoscopy 2024 Colorectal Cancer Screening: Sigmoidoscopy 2024 Diabetes: Hemoglobin A1C 10/26/2024 07/28/2024 Influenza Vaccine (#1) 2025 2, 06/07/2008, 06/23/2007, Additional history exists Pneumococcal Vaccine: [...] Creatinine, Ur 21.8 Not Estab. mg/dL [facility] Albumin, Urine <3.0 Not Estab. ug/mL [facility] Albumin/Creatin ine Ratio <14 0 - 29 mg/g creat [facility] Comment: Normal: 0 - 29 Moderately increased: 30 - 300 Severely increased: >300 12/15/2024 1:32 PM EDT 12/15/2024 us Romario Gifford MD LAB URINE ORDERABLES Final Resul t [facility] [address] [place] [address] * Renal Function Panel (12/15/2024 1:32 PM EDT) Glucose 71 70 - 99 mg/dL [facility] BUN 16 6 - 24 mg/dL [facility] Creatinine 1.06 0.76 - 1.27 mg/dL [facility] eGFR CKD-EPI CR 2020 86 >59 mL/min/1.7 3 [facility] BUN/Creatinine Ratio 15 9 - 20 [facility] Sodium 138 134 - 144 mmol/L [facility] Potassium 4.9 3.5 - 5.2 mmol/L [facility] Chloride 99 96 - 106 mmol/L [facility] Bicarbonate (CO2) 27 20 - 29 mmol/L [facility] Calcium 9.7 8.7 - 10.2 mg/dL [facility] Albumin 4.3 4.1 - 5.1 g/dL [facility] Phosphorus 3.8 2.8 - 4.1 mg/dL [facility] 12/15/2024 1:32 PM EDT 12/15/2024 Romario Gifford MD LAB BLOOD ORDERABLES Final Resul t [facility] [address] [place] [address] from Last 3 Months Insurance Medicaid [place] Medicare Medicare Medicaid [place] Care Teams Multicultural Manager Relationship Specialty Start Date End Date Doretha Pablo MD [address], [address] [place] [address] PCP - General Internal Medicine 08/28/23
--- OUTSIDE RECORDS SUMMARY | 2025-03-10 15:10 | XMS_ITS | Clinical Summary ---
Author Organization [facility] Address [address] [place] [address] Phone Care Team Providers Care Timekeeping Supervisor Name Role Phone Doretha Avilez MD Primary Care Provider + [phone] Allergies Active Allergy Reactions Criticality Noted Date Comments Acetaminophen-Codeine Seizures High 09/13/2024 Nsaids (Non-Steroidal Anti-Inflammatory Drug) Other 03/03/2025 Prochlorperazine Other 09/13/2024 Suicidal ideations Bupropion Hcl 01/17/2025 Medications rosuvastatin (CRESTOR) 40 mg tablet TAKE ONE TABLET BY MOUTH ONCE DAILY 90 tablet 1 10/06/19 25 Active Additional Information Patient taking differently:40 mg oralNightly, Reported on 01/17/2025 lisinopriL (PRINIVIL,ZEST RIL) 20 mg tablet Take 1 tablet (20 mg total) by mouth 1 (one) time each day. Active spironolactone (ALDACTONE) 50 mg tablet Take 1 tablet (50 mg total) by mouth 1 (one) time each day. Active empagliflozin (Jardiance) 10 mg tablet Take 1 tablet (10 mg total) by mouth 1 (one) time each day. Active celecoxib (CeleBREX) 200 mg capsule Take 1 capsule (200 mg total) by mouth 2 (two) times a day. Active erythromycin base 250 mg tablet Take 0.5 tablets (125 mg total) by mouth every 4 (four) hours if needed (stomach upset). Active pregabalin (LYRICA) 150 mg capsule Take 1 capsule (150 mg total) by mouth 3 (three) times a day. Active inf form, glutaric aciduria I 13-475 gram-kcal/100 g powder Take by mouth. Activ e insulin lispro 100 unit/mL injection Inject under the skin 3 (three) times a day before meals. -Administer within 15 minutes of a meal Active cephalexin (KEFLEX) 500 mg capsule Take 1 capsule (500 mg total) by mouth 2 (two) times a day for 7 days. 14 each 03/03/20 25 025 Active cephalexin (KEFLEX) 500 mg capsule Take 1 capsule (500 mg total) by mouth 2 (two) times a day for 7 days. 14 each 03/03/20 25 025 Discontinued Active Problems Problem Noted Date Diagnosed Date Syncope 01/17/2025 Heart failure with improved ejection fraction (HFimpEF) (CMS/HCC V24, CMS/HCC V28) 01/17/2025 Assessment & Plan (01/17/2025 9:14 PM EDT): The patient has heart failure with improved ejection fraction. Etiology: Nonischemic Last ischemic work-up: 1. Nuclear stress test in February 2024 did not show any evidence of ischemia. Fixed defect in the apex likely due to an apical thinning variant. Nonischemic cardiomyopathy workup: 1. Cardiac MRI (March 2024): No evidence of an infiltrative cardiomyopathy. Current symptom classification: NYHA class 2 Guideline directed medical therapy: 1. Beta-blockers: None 2. ARNI / THO inhibitor / ARB: Lisinopril 20 mg orally daily 3. MRA: Spironolactone 50 mg orally daily 4. SGL2 inhibitor: Jardiance 10 mg orally daily Assessment and plan: 49 years old male patient with history of a mild nonischemic cardiomyopathy with evidence of recovery of the LVEF. Previous nuclear stress test did not show any evidence of ischemia. Previous cardiac MRI did not show any evidence of an infiltrative cardiomyopathy. Since his last visit to our office in May 2024, the patient has establish care with the cardiology group at the [facility] cardiology service. Apparently, the patient was started on Jardiance 10 mg orally daily for treatment of his heart failure. As noted previously, the patient has diabetes mellitus type 1. The patient states that the initiation of Jardiance was done by the cardiology group at [facility] after consultation with the patient's new insurance job titles at [facility] (Dr. Juliann Hayward). The patient states that he is fully aware of the increased risk of diabetes ketoacidosis with the use of Jardiance in a patient with diabetes type 1. The patient states that for this reason he was instructed by his insurance job titles to check his ketone levels every day. On the other hand, the patient states that he is currently on lisinopril 20 mg orally daily and spironolactone 50 mg orally daily as part of the treatment of his heart failure. He is currently on these medications as recommended by his new cardiology team at [facility]. The patient states that with this regimen, his LVEF has improved as was apparently noted on a recent echocardiogram done at [facility]. Review of the [facility] cardiology service note from 11/24/2024 seems to verify this information given that the note states that the patient's echocardiogram done at [facility] showed an LVEF of 60%. Nevertheless, I do not have the report or the images of the echocardiogram at this point in order for me to review the study findings directly. During today's visit, we had an extensive conversation regarding the fact that the patient wishes to continue to see his new cardiology team at [facility] and he also wants to continue to follow-up in our office. I explained to the patient that this may lead to duplicity of medical testing as well as the possibility of conflicting opinions regarding the management of his cardiomyopathy. Despite this conversation, the patient stated that he wishes to continue to make periodic appointments in our office and he will also continue to follow with the [facility] cardiology service. I explained to the patient that his current medication regimen (lisinopril, Jardiance, and spironolactone) is being prescribed and managed by his cardiology team at [facility]. Therefore, I instructed the patient that he should continue to follow-up with the cardiology team at [facility] regarding the monitoring and management of these medications. The patient was also instructed to follow-up with his insurance job titles at [facility] for continued management of his diabetes mellitus type 1 including the management of his diabetes medications. Encounters Date Type Department Care Team Description 03/03/2025 8:45 PM EDT - 03/03/2025 10:37 PM EDT Emergency [facility] Emergency [address] [place] [address] Mayda Catherine MD Laceration of left middle finger without foreign body without damage to nail, initial encounter (Primary Dx) Discharge Disposition: Home or Self Care 02/20/2025 8:16 PM EDT - 02/21/2025 12:17 AM EDT Emergency [facility] Emergency [address] [place] [address] Maegan Aguilar DO Hypoglycemia (Primary Dx) Discharge Disposition: Home or Self Care 01/17/2025 5:09 PM EDT - 01/18/2025 11:36 AM EDT Hospital Encounter [facility] Urology Unit [address] [place] [address] Cortez May MD Maduakor, Emmanuel C, MD Surendran, Anupama, MD Seralathan, Manikandan, MD Alam, Aroosa, MD Intractable vomiting (Primary Dx); Hyponatremia; Hypomagnesemia; Hypoglycemia; Near syncope Discharge Disposition: Left Against Medical Advice 01/12/2025 9:20 AM EDT Office Visit [facility] Cardiology [facility] [address] [place] [address] Fco Ford MD Heart failure with improved ejection fraction (HFimpEF) (CMS/HCC V24, CMS/HCC V28) (Primary Dx) 12/25/2024 Telephone [facility] Cardiology [facility] [address] [place] [address] Fco Ford MD 12/11/2024 7:31 PM EDT - 12/12/2024 1:34 AM EDT Emergency [facility] Emergency [address] [place] [phone] Jayson Whitten MD Orthostatic hypotension (Primary Dx); Near syncope Discharge Disposition: Home or Self Care from Last 3 Months Immunizations Name Administration Dates Next Due Tdap Tetanus diptheria acell ular pertussis (Boostrix; Adacel) 7yo and older 03/03/2025 Surgical History Surgery Date Site/Laterality Comments HERNIA REPAIR PROCEDURE: HISTORICAL HERNIA REPAIR/UMB; COMMENT: as Medical History Medical History Date Comments Diabetes ([facility] V24, [facility] V28) DX:Diabetes (HCC) HTN (hypertension) DX:HTN (hyper tension) Hypercholesteremia DX:Hyperchole steremia Neuropathy DX:Neuropathy;CO MMENT:diabetic Migraine DX:Migraine Depression DX:Depression History of herniated interve rtebral disc DX:History of herniated intervertebral disc Degenerative disc disease, lumbar DX:Degenerative disc disease, lumbar Diabetic neuropathy ([facility] V24, [facility] V28) DX:Diabetic neuropathy (HCC) Chronic low back pain DX:Chronic low back pain Migraine DX:Migraine Gastroparesis DX:Gastroparesis Depression DX:Depression Anxiety DX:Anxiety Hyperlipidemia LDL goal <100 DX: Hyperlipidemia LDL goal <100 HTN (hypertension), benign DX:HT N (hypertension), benign Asthma DX:Asthma Chronic painful diabetic kapil ropathy ([facility] V24, [facility] V28) DX:Chronic painful diabetic neuropathy (HCC) Gastroenteritis DX:Gastroenterit is Hx of hernia repair DX:Hx of her qing repair Obesity hypoventilation synd ike ([facility] V24, [facility] V28) DX:Obesity hypoventilation syndrome (HCC) Obstructive sleep apnea DX:Obstr uctive sleep apnea Insomnia DX:Insomnia 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 ([facility] V24, [facility] V28) DX:Controlled ty pe 1 diabetes with neuropathy (HCC) GERD (gastroesophageal reflux disease) DX:GERD (gastroesophageal reflux disease) Lower extremity edema DX:Lower e xtremity edema 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 ([facility] V24, [facility] V28) DX:Type 1 diabet es mellitus with diabetic neuropathy (HCC) Morbid obesity with BMI of 6 0.0-69.9, adult ([facility] V24, [facility] V28) 05/08/2021 DX:Morbid obesity wit h BMI of 60.0-69.9, adult ([facility]) Charcot's joint of ankle, right 05/08/2021 DX:Charcot's joint of ankle, right Heart failure with preserved ejection fraction ([facility] V24, CMS/HCC V28) 02/22/2021 DX:Heart failure w ith preserved ejection fraction (HCC); COMMENT: Hospitalized [facility] 09/2020 for hypoxic hypercarbic resp failure. [...] Sign Reading Time Taken Comments Blood Pressure 135/88 03/03/2025 8:40 PM EDT Pulse 67 03/03/2025 8:38 PM EDT Temperature 36.7 C (98.1 F) 03/03/2025 8:38 PM EDT Respiratory Rate 16 03/03/2025 8:38 PM EDT Oxygen Saturation 99% 03/03/2025 8:38 PM EDT Inhaled Oxygen Concentration - - Weight 107 kg (235 lb) 03/03/2025 8:38 PM EDT Height 182.9 cm (6') 03/03/2025 8:38 PM EDT Body Mass Index 31.87 03/03/2025 8:38 PM EDT Plan of Treatment Upcoming Encounters Date Type Department Care Team (Late st Contact Info) Description 04/26/2025 1:30 PM EDT Office Visit [facility] [address] [place] [address] Fco Ford MD [address] [place] [address] [address] [place] [address] Health Maintenance Due Date Last Done Comments Diabetes: Annual Foot Exam 1985 Diabetes: Annual Retina Eye Exam 1985 Hepatitis B Vaccines (1 of 3 - 19+ 3-dose series) 1994 Colorectal Cancer Screening: Colonoscopy 08/03/2022 HIV Screening 08/03/2022 Hepatitis C Screening 08/03/2022 Medicare Annual Wellness Visit 08/03/2022 Social Influencers of Health Screening 08/03/2022 COVID-19 Vaccine ( season) 2024 09/05/2022, 02/23/2022, 08/03/2021, Additional history exists Depression Screening 08/25/2024 Influenza Vaccine (#1) 2025 , 05/01/2022, 06/26/2021, Additional history exists Diabetes: Blood Sugar Control Test (HGBA1C) 07/28/2025 01/26/2025, 07/28/2024 Pneumococcal Vaccine: Pediatrics (0 to 5 Years) and At-Risk Patients (6 to 49 Years) (3 of 3 - PCV20 or PCV21) 2025 06/21/2015, 08/27/2006, 10/28/2005 Diabetes: Annual Urine Albumin-Creatinine Ratio (uACR) 12/15/2025 12/15/2024, 04/21/2024, 10/20/2023 Diabetes: Annual GFR (Glomerular Filtration Rate) 02/20/2026 02/20/2025, 01/26/2025, 01/18/2025, Additional history exists Hypertension/CHF/CAD Annual BMP Blood Test 02/20/2026 02/20/2025, 01/26/2025, 01/18/2025, Additional history exists Cholesterol Screening (Lipid Panel) 07/28/2029 07/28/2024 DTaP,Tdap,and Td Vaccines (3 - Td or Tdap) 03/03/2035 03/03/2025, 12/15/2007 HIB Vaccines Aged Out No longer eligi [...] Procedure Name Priority Date/Time Associated Diagnosis Comments HC REPAIR WOUND LEVEL 1 Routine 03/03/20 10:06 PM EDT IL REPAIR SPRFCL WOUNDS SIMPLE SCALP/NECK/AXILLAE/GENT /TRUNK/EXT <= 2.5 CM Routine 03/03/2025 10:06 PM EDT ECG ANNOTATED 02/21/2025 ECG 12-LEAD STAT 02/20/2025 9:51 PM EDT BARAJAS URINE CULTURE TUBE STAT 02/21/20 9:48 PM EDT URINALYSIS WITH REFLEX MICROSCOPIC AND CULTURE STAT 02/20/2025 9:48 PM EDT URINALYSIS WITH REFLEX MICROSCOPIC AND CULTURE STAT 02/20/2025 9:48 PM EDT POCT GLUCOSE BLOOD Routine 02/20/2025 9: 46 PM EDT TROPONIN I HIGH SENSITIVITY STAT 02/20/2025 9:44 PM EDT CBC WITH AUTO DIFFERENTIAL STAT 02/20/2025 8:40 PM EDT TROPONIN I HIGH SENSITIVITY STAT 02/20/2025 8:40 PM EDT MAGNESIUM STAT 02/20/2025 8:40 PM EDT BASIC METABOLIC PANEL STAT 02/20/2025 8:40 PM EDT CBC AND DIFFERENTIAL STAT 02/20/2025 8:40 PM EDT POCT GLUCOSE BLOOD Routine 02/20/2025 8: 24 PM EDT ECG ANNOTATED 01/20/2025 POCT GLUCOSE BLOOD Routine 01/18/2025 11 :07 AM EDT BASIC METABOLIC PANEL Timed 01/18/2025 8:09 AM EDT B-TYPE NATRIURETIC PEPTIDE STAT 01/18/2025 8:09 AM EDT POCT GLUCOSE BLOOD Routine 01/18/2025 7: 44 AM EDT CBC WITH AUTO DIFFERENTIAL Routine 01/18/2025 5:19 AM EDT CBC AND DIFFERENTIAL Routine 01/18/2025 5:19 AM EDT MAGNESIUM Routine 01/18/2025 5:18 AM EDT BASIC METABOLIC PANEL Routine 01/18/2025 5:18 AM EDT POCT GLUCOSE BLOOD Routine 01/18/2025 4: 21 AM EDT POCT GLUCOSE BLOOD Routine 01/18/2025 3: 25 AM EDT CBC WITH AUTO DIFFERENTIAL Routine 01/18/2025 2:52 AM EDT CBC AND DIFFERENTIAL Routine 01/18/2025 2:52 AM EDT LACTATE Routine 01/18/2025 2:52 AM EDT ACETAMINOPHEN LEVEL Timed 01/18/2025 2 :52 AM EDT VENOUS BLOOD GAS Routine 01/18/2025 2:52 AM EDT BETA HYDROXYBUTYRATE Routine 01/18/2025 2:52 AM EDT SALICYLATE LEVEL Timed 01/18/2025 2:52 AM EDT ETHANOL Add-On 01/18/2025 1:19 AM EDT BASIC METABOLIC PANEL Routine 01/18/2025 1:19 AM EDT ECG 12-LEAD Routine 01/18/2025 12:00 AM EDT MAGNESIUM Routine 01/17/2025 9:46 PM EDT BASIC METABOLIC PANEL Routine 01/17/2025 9:46 PM EDT DRUG ABUSE SCREEN EXPANDED WITH REFLEX CONFIRMATION, URINE Add-On 01/17/2025 8:41 PM EDT CREATININE, URINE, RANDOM STAT 01/17/2025 8:41 PM EDT ELECTROLYTES, URINE Routine 01/17/2025 8 :41 PM EDT BARAJAS URINE CULTURE TUBE Routine 01/18/20 8:41 PM EDT URINALYSIS WITH REFLEX MICROSCOPIC AND CULTURE Routine 01/17/2025 8:41 PM EDT URINALYSIS WITH REFLEX MICROSCOPIC AND CULTURE Routine 01/17/2025 8:41 PM EDT CULTURE URINE Routine 01/17/2025 8:41 PM EDT CPAP NIV Routine 01/17/2025 8:33 PM EDT POCT GLUCOSE BLOOD Routine 01/17/2025 8: 00 PM EDT TROPONIN I HIGH SENSITIVITY STAT 01/17/2025 6:48 PM EDT XR CHEST 1 VIEW STAT 01/17/2025 5:53 PM EDT CBC WITH AUTO DIFFERENTIAL STAT 01/17/2025 5:29 PM EDT MAGNESIUM STAT 01/17/2025 5:29 PM EDT TROPONIN I HIGH SENSITIVITY STAT 01/17/2025 5:29 PM EDT CBC AND DIFFERENTIAL STAT 01/17/2025 5:29 PM EDT COMPREHENSIVE METABOLIC PANEL STAT 01/17/2025 5:29 PM EDT ECG 12-LEAD STAT 01/17/2025 5:28 PM EDT POCT GLUCOSE BLOOD Routine 01/17/2025 5: 19 PM EDT ECG ANNOTATED 12/13/2024 POC GLUCOSE STAT 12/12/2024 [...] EDT from Last 3 Months Results * IL REPAIR SPRFCL WOUNDS SIMPLE SCALP/NECK/AXILLAE/GENT/TRUNK/EXT <= 2.5 CM, HC REPAIR WOUND LEVEL 1 (03/03/2025 10:06 PM EDT) Mayda Quintero MD - 03/03/2025 10:06 PM EDT Mayda Catherine MD 03/03/2025 10:09 PM Laceration Repair Date/Time: 03/03/2025 10:06 PM Performed by: Mayda Catherine MD Authorized by: Mayda Catherine MD Consent: Consent obtained: Verbal Consent given by: Patient Risks discussed: Infection Alternatives discussed: No treatment [place] protocol: Patient identity confirmed: Verbally with patient Anesthesia: Anesthesia method: Local infiltration Local anesthetic: Lidocaine 1% w/o epi Laceration details: Location: Finger Finger location: L long finger Length (cm): 1.5 Depth (mm): 3 Treatment: Area cleansed with: Povidone-iodine Amount of cleaning: Standard Irrigation solution: Sterile saline Irrigation volume: 50 ml Irrigation method: Pressure wash Debridement: None Skin repair: Repair method: Sutures Suture size: 3-0 Suture material: Nylon Number of sutures: 3 Approximation: Approximation: Close Repair type: Repair type: Simple Post-procedure details: Dressing: Antibiotic ointment and non-adherent dressing Procedure completion: Tolerated well, no immediate complications us Mayda Catherine MD IN CLINIC/BEDSIDE ORDERABLES Final Result * ECG-Annotated (02/21/2025) Only the most recent of3 resultswithin the time period is included. us Provider Onbase ECG ORDERABLES Final Result * ECG 12 lead (02/20/2025 9:51 PM EDT) Only the most recent of4 resultswithin the time period is included. Ventricular Rate ECG 62 BPM GEMUSE Atrial Rate 62 BPM GEMUSE P-R Interval 158 ms GEMUSE QRS Duration 112 ms GEMUSE Q-T Interval 452 ms GEMUSE QTc 458 ms GEMUSE P Wave [place] 14 degrees GEMUSE R [place] 9 degrees GEMUSE T [place] 57 degrees GEMUSE ECG Interpretation Normal sinus rhythm When compared with ECG of 18-JAN-2025 00:00, No significant change was found Confirmed by TIFFANY NGUYEN ([id number]) on 02/21/2025 5:40:58 AM GEMUSE 02/20/2025 9:51 PM EDT 02/21/2025 5:40 AM EDT Maegan Aguilar DO ECG ORDERABLES Final Res ult GEMUSE * (ABNORMAL) Urinalysis with reflex microscopic and culture (02/20/2025 9:48 PM EDT) Only the most recent of2 resultswithin the time period is included. [facility] Specific [place] Urine 1.014 1.003 - 1.030 LAB URINALYSIS - AUTOMATED METHOD 02/20/2025 10:28 PM [facility] pH, Urine 6.0 5.0 - 8.0 pH LAB URINALYSIS - AUTOMATED METHOD 02/20/2025 10:28 PM [facility] Leukocytes, Urine Negative Negative LAB URINALYSIS - AUTOMATED METHOD 02/20/2025 10:28 PM [facility] Nitrite, Urine Negative Negative LAB URINALYSIS - AUTOMATED METHOD 02/20/2025 10:28 PM [facility] Protein, Urine Negative <=Trace mg/dL LAB URINALYSIS - AUTOMATED METHOD 02/20/2025 10:28 PM [facility] Glucose, Urine >=1000(A) Negative mg/dL LAB URINALYSIS - AUTOMATED METHOD 02/20/2025 10:28 PM EDT [facility] Ketones, Urine Negative Negative mg/dL LAB URINALYSIS - AUTOMATED METHOD 02/20/2025 10:28 PM EDT [facility] Urobilinogen , Urine 0.2 0.2 - 1.0 mg/dL LAB URINALYSIS - AUTOMATED METHOD 02/20/2025 10:28 PM EDT [facility] Bilirubin, Urine Negative Negative LAB URINALYSIS - AUTOMATED METHOD 02/20/2025 10:28 PM EDT [facility] Blood, Urine Negative Negative LAB URINALYSIS - AUTOMATED METHOD 02/20/2025 10:28 PM EDT [facility] Urine Urine specimen obtained by clean catch procedure / Unknown Non-blood Collection / Unknown 02/20/2025 9:48 PM EDT 02/20/2025 10:20 PM EDT us [employer] LAB URINE ORDERABLES Whit l Result [facility] [address] [place] [address], [place] [phone] * [place] urine culture tube (02/20/2025 9:48 PM EDT) Only the most recent of2 resultswithin the time period is included. Extra Tube Hold for add-ons. 02/21/2025 12:01 AM EDT [facility] Comment:Auto resulted. Urine Urine specimen obtained by clean catch procedure / Unknown Non-blood Collection / Unknown 02/20/2025 9:48 PM EDT 02/20/2025 10:20 PM EDT us [employer] LAB URINE ORDERABLES Whit l Result Performing Organization Address City/[facility]/ZIP Co de Phone Number [facility] [address] [place] [address], [place] [phone] * (ABNORMAL) POCT Glucose, blood (02/20/2025 9:46 PM EDT) Only the most recent of11 resultswithin the time period is included. [facility] Glucose POCT 153(H) 70 - 100 mg/dL 02/20/2025 9:47 PM EDT [facility] Blood Capillary blood specimen / Unknown 02/20/2025 9:46 PM EDT 02/20/2025 9:48 PM EDT us Maegan Aguilar DO LAB POINT OF CARE TEST DOCKED DEVICE UNSOLICITED RESULTS Final Result Performing Organization Address [facility] Co de Phone Number [facility] [address] [place] [address], [place] [phone] * Troponin I high sensitivity (02/20/2025 9:44 PM EDT) Only the most recent of6 resultswithin the time period is included. [facility] High Sensitivity Troponin I 8 <=79 ng/L LAB CHEMISTRY METHOD 02/20/2025 10:51 PM EDT [facility] Blood Venous blood specimen / Unknown Venipuncture / Unknown 02/20/2025 9:44 PM EDT 02/20/2025 10:21 PM EDT Narrative [facility] - 02/20/2025 10:51 PM EDT High levels of biotin in samples may falsely decrease hsTroponin values. Use caution when interpreting hsTroponin results in patients taking biotin who exhibit renal impairment (eGFR <60) or in patients taking more than 20 mg/day of biotin. us Maegan Aguilar DO LAB BLOOD ORDERABLES Whit l Result Performing Organization Address [facility]/ZIP Co de Phone Number [facility] [address] [place] [address], [place] [phone] * (ABNORMAL) CBC auto differential (02/20/2025 8:40 PM EDT) Only the most recent of5 resultswithin the time period is included. [facility] Signature WBC 9.3 4.8 - 10.8 K/mcL LAB HEMETOLOGY METHOD 02/20/2025 9:[facility] RBC 4.30(L) 4.50 - 5.50 M/mcL LAB HEMETOLOGY METHOD 02/20/2025 9:09 [facility] Hemoglobin 13.3(L) 13.5 - 17.5 g/dL LAB HEMETOLOGY METHOD 02/20/2025 9:09 PM [facility] Hematocrit 40.9(L) 42.0 - 54.0 % LAB HEMETOLOGY METHOD 02/20/2025 9:09 PM [facility] MCV 95.3 79.0 - 98.0 FL LAB HEMETOLOGY METHOD 02/20/2025 9:09 PM [facility] MCH 31.0 27.0 - 32.0 pcg LAB HEMETOLOGY METHOD 02/20/2025 9:09 PM [facility] MCHC 32.5 32.0 - 37.0 g/dL LAB HEMETOLOGY METHOD 02/20/2025 9:09 PM [facility] RDW 12.6 11.0 - 15.0 % LAB HEMETOLOGY METHOD 02/20/2025 9:09 PM [facility] Platelets 180 130 - 400 K/mcL LAB HEMETOLOGY METHOD 02/20/2025 9:09 PM [facility] MPV 9.4 7.0 - 11.0 FL LAB HEMETOLOGY METHOD 02/20/2025 9:09 PM [facility] NRBC 0.0 <1.0 % LAB HEMETOLOGY METHOD 02/20/2025 9:09 PM [facility] NRBC Absolute 0.00 <0.10 K/mcL LAB HEMETOLOGY METHOD 02/20/2025 9:09 PM [facility] Neutrophils Relative 69.8 % LAB HEMETOLOGY METHOD 02/20/2025 9:09 PM [facility] Lymphocytes Relative 20.1 % LAB HEMETOLOGY METHOD 02/20/2025 9:09 PM [facility] Monocytes Relative 8.4 % LAB HEMETOLOGY METHOD 02/20/2025 9:09 PM [facility] Eosinophils Relative 1.0 % LAB HEMETOLOGY METHOD 02/20/2025 9:09 PM [facility] Basophils Relative 0.3 % LAB HEMETOLOGY METHOD 02/20/2025 9:09 PM [facility] Immature Granulocytes Relative 0.4 % LAB HEMETOLOGY METHOD 02/20/2025 9:09 PM [facility] Neutrophils Absolute 6.46 1.50 - 7.00 K/mcL LAB HEMETOLOGY METHOD 02/20/2025 9:09 PM [facility] Lymphocytes Absolute 1.86 1.00 - 5.00 K/mcL LAB HEMETOLOGY METHOD 02/20/2025 9:09 PM [facility] Monocytes Absolute 0.78 0.20 - 1.00 K/mcL LAB HEMETOLOGY METHOD 02/20/2025 9:09 PM [facility] Eosinophils Absolute 0.09 0.00 - 0.50 K/mcL LAB HEMETOLOGY METHOD 02/20/2025 9:09 PM [facility] Basophils Absolute 0.03 0.00 - 0.20 K/mcL LAB HEMETOLOGY METHOD 02/20/2025 9:09 PM [facility] Immature Granulocytes Absolute 0.04(H) 0.00 - 0.03 K/mcL LAB HEMETOLOGY METHOD 02/20/2025 9:09 PM EDT [facility] Blood Venous blood specimen / Unknown Venipuncture / Unknown 02/20/2025 8:40 PM EDT 02/20/2025 8:48 PM EDT Maegan Aguilar LAB BLOOD ORDERABLES Whit l Result Performing Organization Address [facility]/ZIP Co de Phone Number [facility] [address] [place] [address], [place] [phone] * Magnesium (02/20/2025 8:40 PM EDT) Only the most recent of5 resultswithin the time period is included. Magnesium 1.9 1.9 - 2.6 mg/dL LAB CHEMISTRY METHOD 02/20/2025 9:13 PM EDT [facility] Comment:Hemolysis present Blood Venous blood specimen / Unknown Venipuncture / Unknown 02/20/2025 8:40 PM EDT 02/20/2025 8:48 PM EDT Maegan Aguilar LAB BLOOD ORDERABLES Whit l Result Performing Organization Address [facility] de Phone Number [facility] [address] [place] [address], [place] [phone] * (ABNORMAL) Basic metabolic panel (02/20/2025 8:40 PM EDT) Only the most recent of6 resultswithin the time period is included. Sodium 132(L) 133 - 145 mmol/L LAB CHEMISTRY METHOD 02/20/2025 9:13 PM EDT [facility] Potassium 3.9 3.5 - 5.5 mmol/L LAB CHEMISTRY METHOD 02/20/2025 9:13 PM EDT [facility] Comment:Hemolysis present Chloride 96 96 - 110 mmol/L LAB CHEMISTRY METHOD 02/20/2025 9:13 PM [facility] CO2 31 21 - 32 mmol/L LAB CHEMISTRY METHOD 02/20/2025 9:13 PM [facility] Anion Gap 5 3 - 11 LAB CHEMISTRY METHOD 02/20/2025 9:13 PM [facility] Glucose 148(H) 70 - 100 mg/dL LAB CHEMISTRY METHOD 02/20/2025 9:13 PM [facility] BUN 20 5 - 25 mg/dL LAB CHEMISTRY METHOD 02/20/2025 9:13 PM [facility] Creatinine 1.16 0.70 - 1.30 mg/dL LAB CHEMISTRY METHOD 02/20/2025 9:13 PM [facility] eGFR 77 >=60 mL/min/1. 73m2 LAB CHEMISTRY METHOD 02/20/2025 9:13 PM [facility] Comment:Calculation based on the Chronic Kidney Disease Epidemiology Collaboration (CKD-EPI) equation refit without adjustment for race. BUN/Creatinine Ratio 17.2 LAB CHEMISTRY METHOD 02/20/2025 9:13 PM [facility] Calcium 8.1(L) 8.5 - 10.5 mg/dL LAB CHEMISTRY METHOD 02/20/2025 9:13 PM [facility] Blood Venous blood specimen / Unknown Venipuncture / Unknown 02/20/2025 8:40 PM EDT 02/20/2025 8:48 PM EDT us Maegan Aguilar DO LAB BLOOD ORDERABLES Whit l Result [facility] [address] [place] [address], * B-type natriuretic peptide (01/18/2025 8:09 AM EDT) BNP 27 <=100 pcg/mL LAB CHEMISTRY METHOD 01/18/2025 8:50 AM EDT [facility] Blood Venous blood specimen / Unknown Venipuncture / Unknown 01/18/2025 8:09 AM EDT 01/18/2025 8:15 AM EDT Cortez May MD LAB BLOOD ORDERABLES Final Result Performing Organization Address City/[facility]/ZIP Co de Phone Number [facility] [address] [place] [address], [place] [phone] * (ABNORMAL) Beta hydroxybutyrate (01/18/2025 2:52 AM EDT) Beta-Hydroxyb utyrate 44.4(H) 0.2 - 2.8 mg/dL LAB CHEMISTRY METHOD 01/18/2025 3:26 AM EDT [facility] Blood Venous blood specimen / Unknown Venipuncture / Unknown 01/18/2025 2:52 AM EDT 01/18/2025 3:00 AM EDT us Catia MCFADDEN LAB BLOOD ORDERABLES Final R esult Performing Organization Address [facility]/ZIP Co de Phone Number [facility] [address] [place] [address], [place] [phone] * Lactate (01/18/2025 2:52 AM EDT) Lactate 1.2 0.4 - 2.0 mmol/L LAB CHEMISTRY METHOD 01/18/2025 3:29 AM EDT [facility] Blood Venous blood specimen / Unknown Venipuncture / Unknown 01/18/2025 2:52 AM EDT 01/18/2025 3:00 AM EDT us Catia MCFADDEN LAB BLOOD ORDERABLES Final R esult [facility] [address] [place] [address], [place] [phone] * (ABNORMAL) Venous blood gas (01/18/2025 2:52 AM EDT) pH, Yann 7.29(L) 7.32 - 7.42 pH 01/18/2025 3:05 AM EDT [facility] pCO2, Yann 39(L) 41 - 51 mmHg 01/18/2025 3:05 AM EDT [facility] pO2, Yann 47(H) 25 - 40 mmHg 01/18/2025 3:05 AM EDT [facility] HCO3, Venous 18.6(L) 22.0 - 26.0 mmol/L 01/18/2025 3:05 AM EDT [facility] O2 Sat, Yann 77.7 % 01/18/2025 3:05 AM EDT [facility] Base Excess, Yann -7.3(L) -2.0 - 2.0 mmol/L 01/18/2025 3:05 AM EDT [facility] Blood Venous blood specimen / Unknown Venipuncture / Unknown 01/18/2025 2:52 AM EDT 01/18/2025 3:00 AM EDT us Catia MCFADDEN LAB BLOOD ORDERABLES Final R esult [facility] [address] [place] [address], [place] [phone] * (ABNORMAL) Acetaminophen level (01/18/2025 2:52 AM EDT) Pathologist [facility] Acetaminophen Level 2.0(L) 10.0 - 30.0 mcg/mL LAB CHEMISTRY METHOD 01/18/2025 3:26 AM EDT [facility] Blood Venous blood specimen / Unknown Venipuncture / Unknown 01/18/2025 2:52 AM EDT 01/18/2025 3:00 AM EDT Catia MCFADDEN LAB BLOOD ORDERABLES Final R esult Performing Organization Address City/[facility]/ZIP Co de Phone Number [facility] [address] [place] [address], [place] [phone] * (ABNORMAL) Salicylate level (01/18/2025 2:52 AM EDT) Salicylate Level <1.7(L) 2.0 - 29.0 mg/dL LAB CHEMISTRY METHOD 01/18/2025 3:23 AM EDT [facility] Blood Venous blood specimen / Unknown Venipuncture / Unknown 01/18/2025 2:52 AM EDT 01/18/2025 3:00 AM EDT Catia MCFADDEN LAB BLOOD ORDERABLES Final R esult Performing Organization Address City/[facility] Co de Phone Number [facility] [address] [place] [address], [place] [phone] * Ethanol (01/18/2025 1:19 AM EDT) [facility] Ethanol Level 3 0 - 10 mg/dL LAB CHEMISTRY METHOD 01/18/2025 2:39 AM EDT [facility] Blood Venous blood specimen / Unknown Venipuncture / Unknown 01/18/2025 1:19 AM EDT 01/18/2025 1:26 AM EDT Catia MCFADDEN LAB BLOOD ORDERABLES Final R esult Performing Organization Address City/[facility]/ZIP Co de Phone Number [facility] [address] [place] [address], [place] [phone] * Drug abuse screen expanded with reflex confirmation, urine (01/17/2025 8:41 PM EDT) Amphetamine Screen, Ur Negative Negative LAB CHEMISTRY METHOD 01/18/2025 7:18 AM [facility] Comment:Certain OTC medicati ons containing ephedrine, phenylephrine, pseudoephedrine and phenylpropanolamine can cause false positive results. Barbiturate Screen, Ur Negative Negative LAB CHEMISTRY METHOD 01/18/2025 7:18 AM [facility] Benzodiazepine Screen, Ur Negative Negative LAB CHEMISTRY METHOD 01/18/2025 7:18 AM [facility] Cocaine Screen, Ur Negative Negative LAB CHEMISTRY METHOD 01/18/2025 7:18 AM [facility] Opiate Screen, Ur Negative Negative LAB CHEMISTRY METHOD 01/18/2025 7:18 AM [facility] Cannabinoid (THC) Screen, Ur Negative Negative LAB CHEMISTRY METHOD 01/18/2025 7:18 AM [facility] Comment:Specimens from patie nts taking pantoprazole sodium (Protonix) have been shown to produce false positive results. Fentanyl, Ur Negative Negative LAB CHEMISTRY METHOD 01/18/2025 7:18 AM [facility] Oxycodone Screen, Ur Negative Negative LAB CHEMISTRY METHOD 01/18/2025 7:18 AM [facility] Urine Urine specimen from urethra / Unknown Non-blood Collection / Unknown 01/17/2025 8:41 PM EDT 01/17/2025 9:13 PM EDT Narrative [facility] - 01/18/2025 7:18 AM EDT Assay cutoffs: Amphetamines 1000 ng/mL Barbiturates 200 ng/mL Benzodiazepines 200 ng/mL Cocaine 300 ng/mL Fentanyl 1 ng/mL Opiates 300 ng/mL Oxycodone 100 ng/mL THC 50 ng/mL Semi-quantitative assay for screening purposes only. Unconfirmed screening result should not be used for non-medical purposes. *POSITIVE RESULTS ARE AUTOMATICALLY SENT FOR ALTERNATE METHOD CONFIRMATION* Catia MCFADDEN LAB URINE ORDERABLES Final R esult Performing Organization Address City/[facility]/ZIP Co de Phone Number [facility] [address] [place] [address], [place] [phone] * Electrolytes, urine (01/17/2025 8:41 PM EDT) Sodium, Ur 112 mmol/L LAB CHEMISTRY METHOD 01/17/2025 9:45 PM EDT [facility] Chloride, Ur 160 mmol/L LAB CHEMISTRY METHOD 01/17/2025 9:45 PM EDT [facility] Potassium, Ur 55.0 mmol/L LAB CHEMISTRY METHOD 01/17/2025 9:45 PM EDT [facility] Urine Urine specimen from urethra / Unknown Non-blood Collection / Unknown 01/17/2025 8:41 PM EDT 01/17/2025 9:13 PM EDT Catia MCFADDEN LAB URINE ORDERABLES Final R esult Performing Organization Address [facility]/ZIP Co de Phone Number [facility] [address] [place] [address], [place] [phone] * Creatinine, urine, random (01/17/2025 8:41 PM EDT) Creatinine, Urine 289.0 mg/dL LAB CHEMISTRY METHOD 01/17/2025 9:45 PM EDT [facility] Urine Urine specimen from urethra / Unknown Non-blood Collection / Unknown 01/17/2025 8:41 PM EDT 01/17/2025 9:13 PM EDT Catia MCFADDEN LAB URINE ORDERABLES Final R esult [facility] [address] [place] [address], [place] [phone] * Culture urine (01/17/2025 8:41 PM EDT) Culture, Urine 10,000-49,000 CFU/mL Mixed bacterial morphotypes present suggestive of possible contamination during collection. Suggest appropriate recollection if clinically indicated. 01/19/2025 11:16 AM EDT [facility] Urine Urine specimen obtained by clean catch procedure / Unknown Non-blood Collection / Unknown 01/17/2025 8:41 PM EDT 01/17/2025 10:03 PM EDT us Catia MCFADDEN LAB MICROBIOLOGY - GENERAL O RDERABLES Final Result [facility] [address] [place] [address], [place] [phone] * XR Chest 1 View (01/17/2025 5:53 [...] Signed Date: 01/17/2025 20:27 ET Workstation ID: [id number] Transcribed By: Self Edit Transcribed Date: 01/17/2025 [...] Signed Date: 01/17/2025 20:27 ET Workstation ID: [id number] Transcribed By: Self Edit Transcribed Date: 01/17/2025 20:26 ET us Cortez May MD IMG XR PROCEDURES Final Res ult * (ABNORMAL) Comprehensive metabolic panel (01/17/2025 5:29 PM EDT) Sodium 122(L) 133 - 145 mmol/L LAB CHEMISTRY METHOD 01/17/2025 6:16 PM [facility] Potassium 3.9 3.5 - 5.5 mmol/L LAB CHEMISTRY METHOD 01/17/2025 6:16 PM [facility] Chloride 89(L) 96 - 110 mmol/L LAB CHEMISTRY METHOD 01/17/2025 6:16 PM [facility] CO2 25 21 - 32 mmol/L LAB CHEMISTRY METHOD 01/17/2025 6:16 PM [facility] Anion Gap 8 3 - 11 LAB CHEMISTRY METHOD 01/17/2025 6:16 PM [facility] Glucose 236(H) 70 - 100 mg/dL LAB CHEMISTRY METHOD 01/17/2025 6:16 PM [facility] BUN 18 5 - 25 mg/dL LAB CHEMISTRY METHOD 01/17/2025 6:16 PM [facility] Creatinine 0.95 0.70 - 1.30 mg/dL LAB CHEMISTRY METHOD 01/17/2025 6:16 PM [facility] eGFR 98 >=60 mL/min/1. 73m2 LAB CHEMISTRY METHOD 01/17/2025 6:16 PM [facility] Comment:Calculation based on the Chronic Kidney Disease Epidemiology Collaboration (CKD-EPI) equation refit without adjustment for race. BUN/Creatinine Ratio 18.9 LAB CHEMISTRY METHOD 01/17/2025 6:16 PM EDT [facility] Calcium 8.6 8.5 - 10.5 mg/dL LAB CHEMISTRY METHOD 01/17/2025 6:16 PM EDT [facility] AST (SGOT) 30 10 - 42 unit/L LAB CHEMISTRY METHOD 01/17/2025 6:16 PM EDT [facility] ALT (SGPT) 37 10 - 60 unit/L LAB CHEMISTRY METHOD 01/17/2025 6:16 PM EDT [facility] Alkaline Phosphatase 73 42 - 121 unit/L LAB CHEMISTRY METHOD 01/17/2025 6:16 PM EDT [facility] Total Protein 6.2 6.0 - 8.0 g/dL LAB CHEMISTRY METHOD 01/17/2025 6:16 PM EDT [facility] Albumin 3.3 3.2 - 5.0 g/dL LAB CHEMISTRY METHOD 01/17/2025 6:16 PM EDT [facility] Total Bilirubin 0.6 0.0 - 1.4 mg/dL LAB CHEMISTRY METHOD 01/17/2025 6:16 PM EDT [facility] Blood Venous blood specimen / Unknown Venipuncture / Unknown 01/17/2025 5:29 PM EDT 01/17/2025 5:47 PM EDT us Cortez May MD LAB BLOOD ORDERABLES Final Result [facility] [address] [place] [address], [place] [phone] * (ABNORMAL) POCT glucose manually resulted (12/12/2024 1:06 AM EDT) Glucose POC 184(A) 70 - 110 mg/dL Blood Capillary blood specimen / Unknown 12/12/2024 1:06 AM EDT us Jayson Whitten MD POINT OF CARE TEST ENTER/EDIT O RDERABLES Final Result * XR Chest 2 Views (12/11/2024 9:12 PM EDT) Anatomical Region Laterality Modality Body Radiographic Falguni ging 12/12/2024 11:4 5 AM EDT Impressions 12/12/2024 11:46 AM EDT Impression: 1. Poor inspiration. 2. Stable cardiomegaly. 3. No active pulmonary process. [facility] PA ([id number]) -------- FINAL REPORT -------- Dictated By: Rody Marie Dictated Date: 12/12/2024 11:45 ET Assigned Physician: Rody Marie Reviewed and Electronically Signed By: Rody Marie Signed Date: 12/12/2024 11:46 ET Workstation ID: [id number] Transcribed By: Self Edit Transcribed Date: 12/12/2024 [...] 3. No active pulmonary process. [facility]eler[facility] PA ([id number]) -------- FINAL REPORT -------- Dictated By: Rody Marie Dictated Date: 12/12/2024 11:45 ET Assigned Physician: Rody Marie Reviewed and Electronically Signed By: Rody Marie Signed Date: 12/12/2024 11:46 ET Workstation ID: [id number] Transcribed By: Self Edit Transcribed Date: 12/12/2024 11:45 ET us Scot Hai Whitten MD IMG XR PROCEDURES Final Result from Last 3 Months Insurance MEDICARE MEDICAID - [place] Advance Directives * Full Code - Confirmed (Latest Code Status on File) Date Activated Date Inactivated Comments 01/17/2025 8:45 PM 01/18/2025 1:[address] at[facility] was ascertained in the following way: Code status discussion: discussion with patient To update the patient's code status, place a code status order. Do not modify or discontinue any currently active code status orders. * Full Code - Default Date Activated Date Inactivated Comments 01/17/2025 7:31 PM 01/17/2025 8:45 PM This is orde r is used when code status has not been discussed with the patient, or code status is otherwise unknown/unconfirmed To update the patient's code status, place a code status order. Do not modify or discontinue any currently active code status orders. Care Teams Timekeeping Supervisor Relationship Specialty Start Date End Date Doretha Avilez MD [address] [place] [address] PCP - General 11/20/22
== END 2025-03-10 14:48 | disposition home or self-care (01) ==
LOC: HO.HOS 14:19
PROVIDERS: PCP Internal Medicine; Visit Provider Physician Assistant
DX: M19.071 Primary osteoarthritis, right ankle and foot (principal)
CPT/HCPCS: 20605; 99213

== ENCOUNTER → 2025-03-10 14:18 | Outpatient (BNVA) | payer MEDICARE, MEDICAID, SELFPAY | PROVIDERS: PCP Internal Medicine; Visit Provider Physician Assistant | DX: M19.071 Primary osteoarthritis, right ankle and foot (principal) | CPT/HCPCS: 20605; 99212; J1010; J2003 ==

== ENCOUNTER 2025-04-15 13:23 | Outpatient (REF) | payer MEDICARE, MEDICAID, SELFPAY ==
--- OUTSIDE RECORDS SUMMARY | 2025-06-23 22:59 | XMS_ITS | Continuity of Care Document ---
Author Organization [facility] Address [address] [place] [address]- [facility] Name Relationship Address Phone DEAL, MARIANO unrelated friend Unknown Unavailable BI, MARIAH unrelated friend Unknown Unavailab le LEWIS, CHRISTOFER Personal Relationship Unknown Damari vailable LEWIS, CHRISTOFER Personal Relationship Unknown Damari vailable LEWIS, MARIAH spouse Unknown Unavailable JASSO, MÓNICA Other Unknown Unavailable ANTHONY, HELGA unrelated friend Unknown Unavailab le Care Team Providers Care Epic [facility] Name Role Phone Raghav CARDENAS, Doretha Pierre Primary Care Physician [phone] Encounter [facility] Date(s): 05/24/25 - 06/23/25 [facility] [address] [place] [address]- Encounter Type: Triage Allergies, Adverse Reactions, Alerts Substance Criticality Severity Reaction Reaction Severity Status Imitrex unknown reaction A ctive NSAIDs can't take-micah mful to my kidneys Active codeine 1 terrible itching A ctive Toradol can't take-micah mful to my kidneys Active Compazine severe muscle spasm Active Motrin can't take- nuñez rmful to my kidneys Active Wellbutrin suicidal Active Tylenol affects Blood s ugar reading r/t being a diabetic. Active 1Patient has tolerated Fentanyl and Morphine in the past. Immunizations Given and Recorded Vaccine Date Status Refusal Reason diphtheria/tetanus/pertussis, acel(DTaP) 1 03/03/25 Recorded influenza virus vaccine, inactivated 05/03/23 Polo rded influenza virus vaccine, inactivated 05/01/22 Polo rded influenza virus vaccine, inactivated 06/26/21 Polo rded influenza virus vaccine, inactivated 06/22/18 Polo rded influenza virus vaccine, inactivated 04/25/16 Polo rded influenza virus vaccine, inactivated 04/18/11 Polo rded influenza virus vaccine, inactivated 05/02/10 Polo rded influenza virus vaccine, inactivated 06/07/08 Give n [id number] 12y+ bivalent booster vax 09/05/22 Recorded SARS-CoV-2 mRNA ([id number]) vax 02/23/22 Recorded SARS-CoV-2 (COVID-19) mRNA BNT-162b2 vac 08/03/21 Recorded SARS-CoV-2 (COVID-19) mRNA BNT-162b2 vac 01/04/21 Recorded SARS-CoV-2 (COVID-19) mRNA BNT-162b2 vac 12/14/20 Recorded pneumococcal 13-valent vaccine 06/21/15 Recorded Tet/Diphth/Acel, Pertussis (oldterm) 12/15/07 Give n Influenza Virus Vaccine (oldterm) 2 06/23/07 Given Influenza Virus Vaccine (oldterm) 06/20/06 Given Pneumococcal Vaccine (oldterm) 3 08/27/06 Given Pneumococcal Vaccine (oldterm) 4 10/28/05 Given 1Result Comment: [facility] ED ADMIN 0.5 Ml 2Admin Note: SANOFI PASTEUR 3Result Comment: [id number] and expiration 1175F, [id number] 4Result Comment: Lot # [id number] Exp January 21, 2007 Medications 3 pairs of custom molded inserts 3 pairs of custom molded inserts, See Instructions, # 3 each, Refills 0, Tot. Refills 0, Maintenance, E11.9, 06/22/25 1:06:00 PM EDT, Supply Start Date: 06/22/25 Status: Ordered Medication Dispense Status: Completed Quantity: 3.0 Unit: each Total Allowed Fills: 1 Fills Dispensed: 0 Indications: Type 1 diabetes mellitus with diabetic autonomic (poly)neuropathy; Airborne Gummies 3 tablet, Chew, Daily, 0 Refills, Maintenance, 10/31/23 9:21:00 AM EST, Partial fill upon patient request if the prescription is for a schedule II opioid drug. Start Date: 10/31/23 Status: Ordered Medication Dispense Status: Completed Total Allowed Fills: 1 Fills Dispensed: 0 albuterol-ipratropium 3 mg-0.5 mg/3 ml inhalation solution 3 mL, Neb, 4 times a day, # 360 mL, 5 Refills, Maintenance, 06/06/20 1:49:00 PM EDT, Inhalation Solution, [id number], 3 mL Neb 4 times a day,x30 days, 183, cm, 06/03/20 22:02:00 EDT,Height, 155.9, kg, 06/03/20 22:02:00 EDT, Dry Weight Start Date: 06/06/20 Stop Date: 12/03/20 Status: Ordered Medication Dispense Status: Completed Quantity: 360.0 Unit: mL Total Allowed Fills: 6 Fills Dispensed: 0 Arnuity Ellipta 100 mcg inhalation powder 30 each, 0 Refill(s), 0 Refills, 09/30/24 1:37:00 PM EST, Partial fill upon patient request if the prescription is for a schedule II opioid drug. Start Date: 09/30/24 Status: Ordered Medication Dispense Status: Completed Total Allowed Fills: 1 Fills Dispensed: 0 Ascorbic Acid = 1,000 mg, By Mouth, Daily, 0 Refills, Maintenance, 12/29/20 11:14:00 AM EDT, Partial fill upon patient request if the prescription is for a schedule II opioid drug. Start Date: 12/29/20 Status: Ordered Medication Dispense Status: Completed Total Allowed Fills: 1 Fills Dispensed: 0 Basaglar KwikPen 100 units/mL subcutaneous solution See Instructions, INJECT 60 UNITS SUBCUTANEOUS INFUSION DAILY. USE IN CASE OF PUMP FAILURE TO INJECT 60 UNITS DAILY, # 15 mL, 11 Refills, Maintenance, 10/27/24 9:36:00 AM EST, [facility], 183, cm, 10/21/24 10:59:00 EST, Height, 110.6, kg, 08/26/24 14:02:00 EST, Dry Weight Start Date: 10/27/24 Status: Ordered Medication Dispense Status: Completed Quantity: 15.0 Unit: mL Total Allowed Fills: 1 Fills Dispensed: 0 CeleBREX 200 mg oral capsule 1 capsule = 200 mg, By Mouth, 2 times a day, 0 Refills, Maintenance, 10/09/22 1:09:00 PM EST, Capsule, Partial fill upon patient request if the prescription is for a schedule II opioid drug. Start Date: 10/09/22 Status: Ordered Medication Dispense Status: Completed Total Allowed Fills: 1 Fills Dispensed: 0 CoQ10 100 mg oral capsule 3 capsules, By Mouth, Daily, 0 Refills, Maintenance, 10/09/22 1:12:00 PM EST, Partial fill upon patient request if the prescription is for a schedule II opioid drug. Start Date: 10/09/22 Status: Ordered Medication Dispense Status: Completed Total Allowed Fills: 1 Fills Dispensed: 0 Cranberry 30,000 mg., By Mouth, Daily, 0 Refills, Maintenance, 12/29/20 11:13:00 AM EDT, Partial fill upon patient request if the prescription is for a schedule II opioid drug. Start Date: 12/29/20 Status: Ordered Medication Dispense Status: Completed Total Allowed Fills: 1 Fills Dispensed: 0 Dexcom G7 Sensor Dexcom G7 Sensor, See Instructions, # 3 each, Refills 11, Tot. Refills 11, Maintenance, Use as directed for Diabetes Control. change every 10 days. 90 days supplies, 12/15/24 3:25:00 PM EDT, Supply, 183, cm, 12/15/24 14:39:00 EDT, Height, 105.5, kg, 12/15/24 14:39:00 EDT, Dry Weight Start Date: 12/15/24 Status: Ordered Medication Dispense Status: Completed Quantity: 3.0 Unit: each Total Allowed Fills: 12 Fills Dispensed: 0 Indications: Type 1 diabetes mellitus with diabetic autonomic (poly)neuropathy; erythromycin 250 mg oral tablet 0.5 tablet, By Mouth, Every 4 hours, WITH FOOD TO MINIMIZE ABDOMINAL DISCOMFORT., # 270 tablet, 1 Refills, Maintenance, 06/08/25 6:06:00 AM EDT, [facility], 183, cm, 04/06/25 12:47:00 EDT, Height, 109, kg, 03/16/25 13:29:00 EDT, Dry Weight Start Date: 06/08/25 Status: Ordered Medication Dispense Status: Completed Quantity: 270.0 Unit: tablet Total Allowed Fills: 1 Fills Dispensed: 0 Fish Oil 500 mg oral capsule 1 capsule = 500 mg, By Mouth, Daily, 0 Refills, Maintenance, 10/09/22 1:14:00 PM EST, Partial fill upon patient request if the prescription is for a schedule II opioid drug. Start Date: 10/09/22 Status: Ordered Medication Dispense Status: Completed Total Allowed Fills: 1 Fills Dispensed: 0 Gvoke HypoPen Two Pack 1 mg/0.2 mL subcutaneous solution See Instructions, INJECT 1MG SUBCUTANEOUSLY ONCE ONLY FOR EMERGENCY/ UNCONSCIOUS. TO BE GIVEN BY FAMILY MEMBER. CALL 911 IF ADMINISTERING, # 0.4 mL, 6 Refills, Maintenance, 02/05/25 10:20:00 AM EDT, [facility], 183, cm, 12/23/24 8:32:00 EDT, Height, 105.5, kg, 12/15/24 14:39:00 EDT,Dry Weight Start Date: 02/05/25 Status: Ordered Medication Dispense Status: Completed Quantity: 0.4 Unit: mL Total Allowed Fills: 1 Fills Dispensed: 0 Jardiance 10 mg oral tablet 1 tablet = 10 mg, By Mouth, Daily in AM, # 30 tablet, 0 Refills, Maintenance, 07/13/24 6:09:00 AM EST, Tablet, Partial fill upon patient request if the prescription is for a schedule II opioid drug. Start Date: 07/13/24 Status: Ordered Medication Dispense Status: Completed Quantity: 30.0 Unit: tablet Total Allowed Fills: 1 Fills Dispensed: 0 Ketostix See Instructions, # 1 each, Refills 11, Tot. Refills 11, Maintenance, use as directed to check for ketones. E10.9 Type 1 Diabetes Mellitus, 06/01/21 12:11:00 PM EDT, Supply, 182, cm, 04/24/21 10:42:00EDT, Height, 166.4, kg, 11/22/20 23:50:00 EDT, Dry Weight Start Date: 06/01/21 Stop Date: 05/27/22 Status: Ordered Medication Dispense Status: Completed Quantity: 1.0 Unit: each Total Allowed Fills: 12 Fills Dispensed: 0 lisinopril 40 mg oral tablet 1 tablet = 40 mg, By Mouth, Daily, # 30 tablet, 0 Refills, Maintenance, 03/10/25 10:23:00 AM EDT, Tablet, Partial fill upon patient request if the prescription is for a schedule II opioid drug. Start Date: 03/10/25 Status: Ordered Medication Dispense Status: Completed Quantity: 30.0 Unit: tablet Total Allowed Fills: 1 Fills Dispensed: 0 Lyrica 150 mg oral capsule 1 capsule = 150 mg, By Mouth, 3 times a day, # 90 capsule, 0 Refills, Maintenance, 05/21/23 10:45:00AM EDT, Capsule, Partial fill upon patient request if the prescription is for a schedule II opioid drug. Start Date: 05/21/23 Status: Ordered Medication Dispense Status: Completed Quantity: 90.0 Unit: capsule Total Allowed Fills: 1 Fills Dispensed: 0 Misc Rx 1, tablet, By Mouth, Daily, Refills 0, Maintenance, OCUVITE, 10/31/23 9:22:00 AM EST, Supply Start Date: 10/31/23 Status: Ordered Medication Dispense Status: Completed Total Allowed Fills: 1 Fills Dispensed: 0 Misc Rx 7,500 mg, By Mouth, Daily, Refills 0, Maintenance, [employer], 10/31/23 9:26:00 AM EST, Supply Start Date: 10/31/23 Status: Ordered Medication Dispense Status: Completed Total Allowed Fills: 1 Fills Dispensed: 0 Misc Rx 750 mg., By Mouth, Daily, Refills 0, Maintenance, CALCIUM, 10/31/23 9:17:00 AM EST, Supply Start Date: 10/31/23 Status: Ordered Medication Dispense Status: Completed Total Allowed Fills: 1 Fills Dispensed: 0 Misc Rx 2,200 mg, By Mouth, Daily, Refills 0, Maintenance, TUMERIC, 10/31/23 9:19:00 AM EST, Supply Start Date: 10/31/23 Status: Ordered Medication Dispense Status: Completed Total Allowed Fills: 1 Fills Dispensed: 0 Misc Rx 325 mg, By Mouth, Daily, Refills 0, Maintenance, FESO4, 10/31/23 9:20:00 AM EST, Supply Start Date: 10/31/23 Status: Ordered Medication Dispense Status: Completed Total Allowed Fills: 1 Fills Dispensed: 0 Miscellaneous Rx 0 Refills, 50 each, 0 Refill(s), 09/30/24 1:38:00 PM EST Start Date: 09/30/24 Status: Ordered Medication Dispense Status: Completed Total Allowed Fills: 1 Fills Dispensed: 0 Multivitamin 1 tablet, By Mouth, Daily, 0 Refills, Maintenance, 06/03/20 10:14:00 PM EDT Start Date: 06/03/20 Status: Ordered Medication Dispense Status: Completed Total Allowed Fills: 1 Fills Dispensed: 0 NovoLOG 100 units/mL injectable solution See Instructions, use for insulin pump, max daily dose 120 units. 90 days supplies, # 110 mL, 3 Refills, Maintenance, 06/09/25 4:49:00 PM EDT, [facility], Partial fill upon patient request if the prescription is for a schedule II opioid drug., 183, cm, 04/06/25 12:47:00 EDT, Height, 109, kg, 03/16/25 13:29:00 EDT, Dry Weight Start Date: 06/09/25 Status: Ordered Medication Dispense Status: Completed Quantity: 110.0 Unit: mL Total Allowed Fills: 4 Fills Dispensed: 0 Indications: Type 1 diabetes mellitus with diabetic autonomic (poly)neuropathy; One pair of custom-molded shoes One pair of custom-molded shoes, See Instructions, # 1 each, Refills 0, Tot. Refills 0, Maintenance, E11.9, 06/22/25 1:08:00 PM EDT, Supply Start Date: 06/22/25 Status: Ordered Medication Dispense Status: Completed Quantity: 1.0 Unit: each Total Allowed Fills: 1 Fills Dispensed: 0 Indications: Type 1 diabetes mellitus with diabetic autonomic (poly)neuropathy; Osteo Bi-Flex 2 tabs, By Mouth, Daily, 0 Refills, Maintenance, 10/31/23 9:16:00 AM EST, Partial fill upon patient request if the prescription is for a schedule II opioid drug. Start Date: 10/31/23 Status: Ordered Medication Dispense Status: Completed Total Allowed Fills: 1 Fills Dispensed: 0 Pen [place], 31 G x 5 mm BD Ultra Fine III See Instructions, # 300 each, Refills 11, Tot. Refills 11, Maintenance, Use to inject insulin up to8 times daily. E10.65., 11/21/21 10:36:00 AM EDT, Supply, 182, cm, 07/25/21 13:54:00 EST, Height, 166.4, kg, 11/22/20 23:50:00 EDT, Dry Weight Start Date: 11/21/21 Stop Date: 11/16/22 Status: Ordered Medication Dispense Status: Completed Quantity: 300.0 Unit: each Total Allowed Fills: 12 Fills Dispensed: 0 rosuvastatin 40 mg oral tablet 1 tablet = 40 mg, By Mouth, Daily at bedtime, # 90 tablet, 0 Refills, Maintenance, 10/09/22 1:09:00 PM EST, Tablet, Partial fill upon patient request if the prescription is for a schedule II opioid drug. Start Date: 10/09/22 Status: Ordered Medication Dispense Status: Completed Quantity: 90.0 Unit: tablet Total Allowed Fills: 1 Fills Dispensed: 0 Sutab oral tablet See Instructions, Take 12 tablets with 16 oz water the evening before, and another 12 tablets with 16 oz water on the morning of colonoscopy., # 1 kit, 0 Refills, Maintenance, 05/24/25 10:50:00 AM EDT, [facility], Partial fill upon patient request if the prescription is for a schedule II opioid drug., Take 12 tablets with 16 oz water the evening before, and another 12 tablets with16 oz water on the morning of colonoscopy., 183, cm, 04/06/25 12:47:00 EDT, Height, 109, kg, 03/16/25 13:29:00 EDT, Dry Weight Start Date: 05/24/25 Status: Ordered Medication Dispense Status: Completed Quantity: 1.0 Unit: kit Total Allowed Fills: 1 Fills Dispensed: 0 Tandem Truesteel Infusion sets Tandem Truesteel Infusion sets, See Instructions, # 45 each, Refills 4, Tot. Refills 4, Maintenance, Use infusion set to infuse insulin via insulin pump continuously, change infusion set every 2 daysd/t insulin requirements, E10. 65, 06/22/21 11:37:00 AM EDT, Supply Start Date: 06/22/21 Status: Ordered Medication Dispense Status: Completed Quantity: 45.0 Unit: each Total Allowed Fills: 5 Fills Dispensed: 0 Ventolin HFA 108 mcg/inh inhalation aerosol with adapter 1 puffs, Inhalation, 4 times a day, PRN for wheezing, # 8 Gm, 0 Refills, Maintenance, 06/03/20 10:09:00 PM EDT, Aerosol Start Date: 06/03/20 Status: Ordered Medication Dispense Status: Completed Quantity: 8.0 Unit: g Total Allowed Fills: 1 Fills Dispensed: 0 Vitamin B12 = 1,000 mcg, By Mouth, Daily, 0 Refills, Maintenance, 10/31/23 9:29:00 AM EST, Partial fill upon patient request if the prescription is for a schedule II opioid drug. Start Date: 10/31/23 Status: Ordered Medication Dispense Status: Completed Total Allowed Fills: 1 Fills Dispensed: 0 Vitamin D3 1000 intl units oral capsule 1 capsule = 25 mcg, By Mouth, Daily, # 100 capsule, 0 Refills, Maintenance, 10/09/22 1:13:00 PM EST,Capsule, Partial fill upon patient request if the prescription is for a schedule II opioid drug. Start Date: 10/09/22 Status: Ordered Medication Dispense Status: Completed Quantity: 100.0 Unit: capsule Total Allowed Fills: 1 Fills Dispensed: 0 Vitamin K2 100 mcg oral tablet 1 tablet = 100 mcg, By Mouth, Daily, # 100 tablet, 0 Refills, Maintenance, 10/31/23 9:19:00 AM EST, Tablet, Partial fill upon patient request if the prescription is for a schedule II opioid drug. Start Date: 10/31/23 Status: Ordered Medication Dispense Status: Completed Quantity: 100.0 Unit: tablet Total Allowed Fills: 1 Fills Dispensed: 0 [place] Prefilled Syringe 0.6 mg/0.6 mL subcutaneous solution See Instructions, INJECT 0.6MG SUBCUTANEOUSLY ONCE. MAY REPEAT ONCE IN 15 MINUTES. USE FOR SEVERE HYPOGLYCEMIA (BG LESS THAN 50 AND {ADTDIR}, # 1.2 mL, 2 Refills, Maintenance, 04/05/25 1:01:00 PM EDT,[facility], 183, cm, 03/16/25 13:29:00 EDT, Height, 109, kg, 03/16/25 13:29:00 EDT, Dry Weight Start Date: 04/05/25 Status: Ordered Medication Dispense Status: Completed Quantity: 1.2 Unit: mL Total Allowed Fills: 1 Fills Dispensed: 0 zinc (as gluconate) 50 mg oral tablet 1 tablet = 50 mg, By Mouth, Daily, # 30 tablet, 0 Refills, Maintenance, 10/31/23 9:28:00 AM EST, Tablet, Partial fill upon patient request if the prescription is for a schedule II opioid drug. Start Date: 10/31/23 Status: Ordered Medication Dispense Status: Completed Quantity: 30.0 Unit: tablet Total Allowed Fills: 1 Fills Dispensed: 0 Problem List Condition Confirmation Course Effective Dates Status Health Status Informant Anxiety Confirmed Active Charcot ankle Confirmed Active Diastolic congestive heart failure Confirmed Active Obesity hypoventilation syndrome Confirmed Active Diabetic gastroparesis associated with type 1 diabetes mellitus Confirmed Active Hypercholesterolemia Confirmed Active Hypertension Confirmed Active Labile blood pressure Confirmed Active Moderate asthma without complication Confirmed Active Moderate depressive episode Confirmed Active Obese class I Confirmed Active OCD (obsessive compulsive disorder) Confirmed Active Obstructive sleep apnea Confirmed Active Type 1 diabetes mellitus with peripheral autonomic neuropathy Confirmed Active Venous insufficiency Confirmed Active Social History Social History Type Response Sexual Sexually involved in last 6 months: Yes. Smoking Status Never smoker; Tobacc o user in household: No entered on: 06/13/14 Sex Sex Representation Male (finding) Patient Care team information Care Team Personnel Name: Natalie Armijo RN Position: [facility] RN Member Role: Primary Care Nurse Name: Yoana Bullock RN Position: [facility] ED RN W/OE and Tasks Member Role: Primary Care Nurse Name: Laura Lamb RN Position: [facility] SN RN Member Role: Primary Care Nurse Name: Loly Arenas NP Position: [facility] Outreach Member Role: Primary Care Nurse Address: [address] [place] [address]- [place] Tele[employer]: Name: Gabriele Gifford MD Position: [facility] Renal MD Member Role: Lifetime Consulting Physician Address: [address] [facility] [address] [facility] [place] [address]- Telecom: Name: Doretha Avilez MD Position: [facility] Physician - Primary Care Member Role: PCP Address: [facility] [place] [address]- Telecom: Name: Mary Solis RN Position: [facility] OB RN Member Role: Primary Care Nurse Name: Kristina Parker RN Position: [facility] RN Member Role: Primary Care Nurse Name: Mri Parada Position: [facility] Outreach Member Role: Lifetime Consulting Physician Name: Miguel Beltran RN Position: [facility] RN Member Role: Primary Care Nurse Name: Barbara Blanca RN Position: [facility] RN Member Role: Primary Care Nurse Care Team Related Persons Name: MARIAH SAUCEDO Name: MARIAH PAT Name: MÓNICA JASSO Insurance Providers Guarantor name: CHRISTOFER SAUCEDO Health Plan Information #: 1 Payer: MEDICARE B Payer Identifier: FRE[employer]OM Member Number: [id number] Group Number: NA Subscriber Identifier: NA Relationship to Subscriber: self Coverage Type: NA Coverage Verification Date: NA Telecom: NA Address: NA Health Plan Information #: 2 Payer: [facility] Payer Identifier: NA Member Number: [id number] Group Number: NA Subscriber Identifier: NA Relationship to Subscriber: self Coverage Type: MEDICAID Coverage Verification Date: NA Telecom: NA Address: NA
--- OUTSIDE RECORDS SUMMARY | 2025-06-28 16:18 | XMS_ITS | Clinical Summary ---
Author Organization [facility] Address [address] [place] [address] Care Team Providers Care Maint Mechanic Name Role Phone Unavailable Primary Care Provider [...]
--- OUTSIDE RECORDS SUMMARY | 2025-06-28 16:18 | XMS_ITS | Data Portability ---
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 Shubham was recently seen at the [facility] Emergency room for an episode of near [...] for management of his chronic pain. Shubham adamantly declined a referral to pain management and [...] along with you. Not available 12/21/2024 12:00:59 01/27/2025 01/27/2025 IMPRESSION: Shubham has had trouble with intermittent hypotension and actually ended up in the emergency room in [place] because his blood pressure was 70. He was on a combination of Lasix, spironolactone, metoprolol and lisinopril. He is currently on lisinopril 30 mg daily and has held his diuretics. I have asked him to restart his 12.5 mg of Aldactone as he has trouble with hypokalemia. I told him to weigh himself daily and to take 25 mg if his ankle swell or if he gains 3-5 pounds. I asked him to hold his metoprolol and to continue with lisinopril. I will see him back in clinical followup in a month s time. As always, it is a pleasure seeing patients along with you. Not available 01/27/2025 10:28:22 03/07/2025 03/07/2025 IMPRESSION: Shubham continues to do well from a cardiology perspective. He has had no chest pain suggestive of recurrent angina and has no signs or symptoms of heart failure or arrhythmias. He continues to enjoy a full and active lifestyle. He has had some issues with orthostatic hypotension that necessitating him stopping his Entresto. I made no other changes in his medical regimen at this point. As always, it is a pleasure seeing patients along with you. Not available 03/07/2025 15:56:25 05/13/2025 05/13/2025 Shubham is presenting for a follow up appointment. He is in office with his . Shubham continues to struggle with blood pressure control. He has been adjusting his medications at home independently and increased his spironolactone back to 25 mg daily. He has reduced his vitamin D supplementation which he feels has significantly improved his dehydration. He provided a log of his blood pressures from home which revealed his blood pressures to be systolic in the 130s-150s. When his blood pressure is above 140 systolic he develops a headache and has intermittent blurred vision. He can have intermittent lower extremity edema when he gets towards the end of the day but feels that this is overall well-controlled. In office today his blood pressure was 150/82. The patient is concerned about dehydration and would not like to advance his furosemide dosage. I have asked him to restart amlodipine 2.5 mg tablets daily and to closely monitor his blood pressure at home. Shubham agreed to closely monitor his blood pressure at home and will contact the office or seek medical attention with any new or worsening symptoms or concerns. We will see him back in office in 1 month As always, it is a pleasure seeing patients along with you. Not available 05/13/2025 15:14:19 06/14/2025 06/14/2025 Shubham is presenting for a follow up appointment. He is in office with his who helps to provide some history Shubham is doing well from a cardiology perspective. There is no evidence of decompensated heart failure, chest pain suggestive of recurrent angina, or arrhythmia. He has been feeling more easily fatigued. I have asked him to have updated labs to further assess for etiologies of this. I recommended a tick-borne illness panel and he declined. He does endorse taking very high tumeric supplementation and some studies online reveal that this may be dehydrating or cause fatigue. He agreed to reduce this dosage at home and monitor his symptoms. He has been having more pain in his ankles for which he has been getting steroid injections and he has been utilizing THC in both pill and smoking forms. His blood pressure at home has been under better control since restarting his amlodipine. It appears more stable based on his home log ranging systolic 100-130s. His blood pressure in office today was 136/76. His ECG revealed NSR at a rate of 66bpm. I have made no changes to his medication regiment at this time. We will see him back in office in 1 month for his regularly scheduled appointment with labs. As always, it is a pleasure seeing patients along with you. Not available 06/14/2025 11:46:45 Plan of Treatment Reminders Order Date Submit Date Provider Last Modified By Organization Details Last Modified Time Details Appointments Any 2024 09:30A M Shubham Pineda MD Not available Not available Not available Any 2025 10:00A M Shubham Pineda MD Not available Not available Not available Lab CBC w/ auto diff 2024 [facility] (Centralized Electronic Ordering - All Locations), Patient Can Go To The Location Of Their Choice, 06/15/2025 08:07:33 CMP, serum or plasma 2024 025 [facility] (Centralized Electronic Ordering - All Locations), Patient Can Go To The Location Of Their Choice, 06/15/2025 08:07:35 iron + TIBC + ferritin, serum 2024 025 [facility] (Centralized Electronic Ordering - All Locations), Patient Can Go To The Location Of Their Choice, 06/15/2025 08:07:31 ferritin, serum or plasma 2024 025 [facility] (Centralized Electronic Ordering - All Locations), Patient Can Go To The Location Of Their Choice, 06/14/2025 11:16:27 vitamin D, 25-hydrox y, total, serum 2024 025 [facility] (Centralized Electronic Ordering - All Locations), Patient Can Go To The Location Of Their Choice, 06/15/2025 08:07:37 magnesium , serum or plasma 2024 025 [facility] (Centralized Electronic Ordering - All Locations), Patient Can Go To The Location Of Their Choice, 06/15/2025 08:07:38 BMP, serum or plasma 2024 025 [email or web address] (Centralized Electronic Ordering - All Locations), Patient Can Go To The Location Of Their Choice, [id number] 05/10/2025 14:21:35 BMP, serum or plasma 2024 025 [place] [facility] Patient Can Go To The Location Of Their Choice, [id number] 02/09/2025 00:05:24 BMP, serum or plasma [address] [facility] (Centralized Electronic Ordering - All Locations), Patient Can Go To The Location Of Their Choice, [id number] 05/10/2025 14:21:52 BMP, serum or plasma 2024 025 [place] [facility] (Centralized Electronic Ordering - All Locations), Patient Can Go To The Location Of Their Choice, [id number] 05/11/2025 03:04:54 Referral None recorded. Procedures None recorded. Surgeries None recorded. Imaging electroca rdiogram 2024 025 [email or web address] In-Office Order, Internal Use Only DO Not Attach Compendium DO Not Attach Compendium, Do Not Delete/merge, 06/14/2025 11:28:04 electroca rdiogram 2024 025 [email or web address] In-Office Order, Internal Use Only DO Not Attach Compendium DO Not Attach Compendium, Do Not Delete/merge, 05/13/2025 15:03:56 electroca rdiogram 2024 025 [email or web address] In-Office Order, Internal Use Only DO Not Attach Compendium DO Not Attach Compendium, Do Not Delete/merge, 03/07/2025 16:11:45 electroca rdiogram 2024 025 [email or web address] In-Office Order, Internal Use Only DO Not Attach Compendium DO Not Attach Compendium, Do Not Delete/merge, 01/27/2025 10:28:37 electroca rdiogram 2024 025 THIERRY In-Office Order, Internal Use Only DO Not Attach Compendium DO Not Attach Compendium, Do Not Delete/merge, [id number] 12/20/2024 17:35:32 Medication Orders amlodipin e 2.5 mg tablet 2024 025 THIERRY [facility], [address] [place] [address], [id number], 05/13/2025 18:46:29 spironola ctone 25 mg tablet 2024 025 [email or web address] [facility], [address] [place] [address], [id number], 03/21/2025 17:04:58 lisinopri l 20 mg tablet 2024 025 [email or web address] [facility], [address] [place] [address], [id number], 01/27/2025 08:24:25 Patient TargetsNo targets recorded. Patient Instructions Encounter Date Encounter Id Patient Instructions Last Modified By Organization Details Last Modified Time 01/27/2025 [id number] learning about type 1 diabetes rwholey Not available 01/27/2025 10:28:37 type 1 diabetes: care instructions rwholey Not available 01/27/2025 10:28:37 03/07/2025 [id number] shortness of breath: care instructions rwholey Not available 03/07/2025 16:11:45 Reason for Referral None Reported. Results Created Date Observation Date Name Description Value Unit Range Abnormal Flag Note LastModifiedBy Organization Detail LastModifiedTime 11/20/1911/19/2024 BASIC METAB OLIC PANEL (8) glucose 78 mg/dL 70-99 normal Not Available [facility] ([facility]) [address] [place], [address], 11/20/2024 00:05:15 11/20/1911/19/2024 BASIC METAB OLIC PANEL (8) BUN 19 mg/dL 6-24 normal Not Available [facility] ([facility]) [address] [place], [address], 11/20/2024 00:05:15 11/20/19 25 11/19/2024 BASIC METAB OLIC PANEL (8) creatinine 1.12 mg/dL 0.76-1 .27 normal Not Available [facility] ([facility]) [address] [facility] [place], [address], 11/20/2024 00:05:15 11/20/19 25 11/19/2024 BASIC METAB OLIC PANEL (8) eGFR 81 mL/mi n/1.7 3 >59 normal Not Available [facility] ([facility]) [address] [facility] [place], [address], 11/20/2024 00:05:15 11/20/19 25 11/19/2024 BASIC METAB OLIC PANEL (8) BUN/creatini ne ratio 17 9-20 normal Not Available [facility] ([facility]) [address] [facility] [place], [address], 11/20/2024 00:05:15 11/20/19 25 11/19/2024 BASIC METAB OLIC PANEL (8) sodium 137 mmol/ L 134-14 4 normal Not Available [facility] ([facility]) [address] [place], [address], 11/20/2024 00:05:15 11/20/19 25 11/19/2024 BASIC METAB OLIC PANEL (8) potassium 5.1 mmol/ L 3.5-5. 2 normal Not Available [facility] ([facility]) [address] [place], [address], 11/20/2024 00:05:15 11/20/19 25 11/19/2024 BASIC METAB OLIC PANEL (8) chloride 101 mmol/ L 96-106 normal Not Available [facility] ([facility]) [address] [place], [address], 11/20/2024 00:05:15 11/20/19 25 11/19/2024 BASIC METAB OLIC PANEL (8) carbon dioxide, total 22 mmol/ L 20-29 normal Not Available [facility] ([facility]) [address] [facility] [place], [address], 11/20/2024 00:05:15 11/20/19 25 11/19/2024 BASIC METAB OLIC PANEL (8) calcium 9.7 mg/dL 8.7-10 .2 normal Not Available [facility] ([facility]) [address] [facility] [place], [address], 11/20/2024 00:05:15 12/08/19 25 12/08/2024 CHOL+ TRIG+ HDL+L DL-D cholesterol, total 116 mg/dL 100-19 9 normal Not Available [facility] ([facility]) [address] [place], [address], 12/08/2024 08:11:44 12/08/19 25 12/08/2024 CHOL+ TRIG+ HDL+L DL-D triglyceride s 91 mg/dL 0-149 normal Not Available [facility] ([facility]) [address] [facility] [place], [address], 12/08/2024 08:11:44 12/08/19 25 12/08/2024 CHOL+ TRIG+ HDL+L DL-D HDL cholesterol 49 mg/dL >39 normal Not Available [facility] ([facility]) [address] [place], [address], 12/08/2024 08:11:44 12/08/19 25 12/08/2024 CHOL+ TRIG+ HDL+L DL-D LDL chol. (direct) 55 mg/dL 0-99 Not Available [facility] ([facility]) [address] [place], [address], 12/08/2024 08:11:44 12/08/19 25 12/08/2024 CHOL+ TRIG+ HDL+L DL-D LDL direct comment: SIZE TESTER Not Available [facility] ([facility]) [address] [place], [address], 12/08/2024 08:11:44 12/08/19 25 12/08/2024 BASIC METAB OLIC PANEL (8) glucose 101 mg/dL 70-99 above high normal Not Available [facility] ([facility]) [address] [place], [address], 12/08/2024 08:11:44 12/08/19 25 12/08/2024 BASIC METAB OLIC PANEL (8) BUN 25 mg/dL 6-24 above high normal Not Available [facility] ([facility]) [address] [place], [address], 12/08/2024 08:11:44 12/08/19 25 12/08/2024 BASIC METAB OLIC PANEL (8) creatinine 1.07 mg/dL 0.76-1 .27 normal Not Available [facility] ([facility]) [address] [place], [address], 12/08/2024 08:11:44 12/08/19 25 12/08/2024 BASIC METAB OLIC PANEL (8) eGFR 85 mL/mi n/1.7 3 >59 normal Not Available [facility] ([facility]) [address] [place], [address], 12/08/2024 08:11:44 12/08/19 25 12/08/2024 BASIC METAB OLIC PANEL (8) BUN/creatini ne ratio 23 9-20 above high normal Not Available [facility] ([facility]) [address] [place], [address], 12/08/2024 08:11:44 12/08/19 25 12/08/2024 BASIC METAB OLIC PANEL (8) sodium 137 mmol/ L 134-14 4 normal Not Available [facility] ([facility]) [address] [place], [address], 12/08/2024 08:11:44 12/08/19 25 12/08/2024 BASIC METAB OLIC PANEL (8) potassium 4.1 mmol/ L 3.5-5. 2 normal Not Available [facility] ([facility]) [address] [place], [address], 12/08/2024 08:11:44 12/08/19 25 12/08/2024 BASIC METAB OLIC PANEL (8) chloride 97 mmol/ L 96-106 normal Not Available [facility] ([facility]) [address] [place], [address], 12/08/2024 08:11:44 12/08/19 25 12/08/2024 BASIC METAB OLIC PANEL (8) carbon dioxide, total 21 mmol/ L 20-29 normal Not Available [facility] ([facility]) [address] [place], [address], 12/08/2024 08:11:44 12/08/19 25 12/08/2024 BASIC METAB OLIC PANEL (8) calcium 9.9 mg/dL 8.7-10 .2 normal Not Available [facility] ([facility]) [address] [place], [address], 12/08/2024 08:11:44 12/08/19 25 12/08/2024 CK creatine kinase,total 305 U/L 49-439 normal Not Available [facility] ([facility]) [address] [place], [address], 12/08/2024 08:11:45 12/08/19 25 12/08/2024 AST (SGOT ) AST (SGOT) 29 IU/L 0-40 normal Not Available [facility] ([facility]) [address] [place], [address], 12/08/2024 08:11:45 12/08/19 25 12/08/2024 ALT (SGPT ) ALT (SGPT) 26 IU/L 0-44 normal Not Available [facility] ([facility]) [address] [place], [address], 12/08/2024 08:11:46 02/09/20 25 02/08/2025 BASIC METAB OLIC PANEL (8) glucose 83 mg/dL 70-99 normal Not Available [facility] ([facility]) [address] [place], [address], 02/09/2025 00:05:24 02/09/20 25 02/08/2025 BASIC METAB OLIC PANEL (8) BUN 18 mg/dL 6-24 normal Not Available [facility] ([facility]) [address] [place], [address], 02/09/2025 00:05:24 02/09/20 25 02/08/2025 BASIC METAB OLIC PANEL (8) chloride 101 mmol/ L 96-106 normal Not Available [facility] ([facility]) [address] [place], [address], 02/09/2025 00:05:24 02/09/20 25 02/08/2025 BASIC METAB OLIC PANEL (8) carbon dioxide, total 25 mmol/ L 20-29 normal Not Available [facility] ([facility]) [address] [place], [address], 02/09/2025 00:05:24 02/09/20 25 02/08/2025 BASIC METAB OLIC PANEL (8) calcium 9.6 mg/dL 8.7-10 .2 normal Not Available [facility] ([facility]) [address] [place], [address], 02/09/2025 00:05:24 02/09/20 25 02/09/2025 BASIC METAB OLIC PANEL (8) creatinine 1.12 mg/dL 0.76-1 .27 normal Not Available [facility] ([facility]) [address] [place], [address], 02/09/2025 00:05:24 02/09/20 25 02/09/2025 BASIC METAB OLIC PANEL (8) eGFR 81 mL/mi n/1.7 3 >59 normal Not Available [facility] ([facility]) [address] [place], [address], 02/09/2025 00:05:24 02/09/20 25 02/09/2025 BASIC METAB OLIC PANEL (8) BUN/creatini ne ratio 16 9-20 normal Not Available [facility] ([facility]) [address] [place], [address], 02/09/2025 00:05:24 02/09/2002/09/2025 BASIC METAB OLIC PANEL (8) sodium 140 mmol/ L 134-14 4 normal Not Available [facility] ([facility]) [address] [place], [address], 02/09/2025 00:05:24 02/09/20 25 02/09/2025 BASIC METAB OLIC PANEL (8) potassium 4.7 mmol/ L 3.5-5. 2 normal Not Available [facility] ([facility]) [address] [place], [address], 02/09/2025 00:05:24 04/18/20 25 04/19/2025 BASIC METAB OLIC PANEL (8) glucose 104 mg/dL 70-99 above high normal Not Available [facility] ([facility]) [address] [place], [address], 04/19/2025 04:05:12 04/18/20 25 04/19/2025 BASIC METAB OLIC PANEL (8) BUN 15 mg/dL 6-24 normal Not Available [facility] ([facility]) [address] [place], [address], 04/19/2025 04:05:12 04/18/20 25 04/19/2025 BASIC METAB OLIC PANEL (8) creatinine 1.21 mg/dL 0.76-1 .27 normal Not Available [facility] ([facility]) [address] [facility] [place], [address], 04/19/2025 04:05:12 04/18/2004/19/2025 BASIC METAB OLIC PANEL (8) eGFR 73 mL/mi n/1.7 3 >59 normal Not Available [facility] ([facility]) [address] [facility] [place] [facility] [place], [address], 04/19/2025 04:05:12 04/18/2004/19/2025 BASIC METAB OLIC PANEL (8) BUN/creatini ne ratio 12 9-20 normal Not Available [facility] ([facility]) [address] [facility] [place], [address], 04/19/2025 04:05:12 04/18/2004/19/2025 BASIC METAB OLIC PANEL (8) sodium 139 mmol/ L 134-14 4 normal Not Available [facility] ([facility]) [address] [facility] [place], [address], 04/19/2025 04:05:12 04/18/2004/19/2025 BASIC METAB OLIC PANEL (8) potassium 4.0 mmol/ L 3.5-5. 2 normal Not Available [facility] ([facility]) [address] [facility] [place] [place], [address], 04/19/2025 04:05:12 04/18/2004/19/2025 BASIC METAB OLIC PANEL (8) chloride 98 mmol/ L 96-106 normal Not Available [facility] ([facility]) [address] [facility] [place], [address], 04/19/2025 04:05:12 04/18/2004/19/2025 BASIC METAB OLIC PANEL (8) carbon dioxide, total 25 mmol/ L 20-29 normal Not Available [facility] ([facility]) [address] [facility] [place], [address], 04/19/2025 04:05:12 04/18/2004/19/2025 BASIC METAB OLIC PANEL (8) calcium 9.4 mg/dL 8.7-10 .2 normal Not Available [facility] ([facility]) [address] [facility] [place] [place], [address], 04/19/2025 04:05:12 06/14/20 25 06/15/2025 FE+TI BC+FE R iron bind.cap.(TI BC) 295 ug/dL 250-45 0 normal Not Available [facility] ([facility]) [address] [facility] [place] [place], [address], 06/15/2025 08:07:31 06/14/2006/15/2025 FE+TI BC+FE R UIBC 168 ug/dL 111-34 3 normal Not Available [facility] ([facility]) [address] [facility] [place], [address], 06/15/2025 08:07:31 06/14/2006/15/2025 FE+TI BC+FE R iron 127 ug/dL 38-169 normal Not Available [facility] ([facility]) [address] [place], [address], 06/15/2025 08:07:31 06/14/20 25 06/15/2025 FE+TI BC+FE R iron saturation 43 % 15-55 normal Not Available [facility] ([facility]) [address] [place], [address], 06/15/2025 08:07:31 06/14/2006/15/2025 FE+TI BC+FE R ferritin 112 NG/mL 30-400 normal Not Available [facility] ([facility]) [address] [place], [address], 06/15/2025 08:07:31 06/14/20 25 06/14/2025 CBC WITH DIFFE RENTI AL/PL ATELE T WBC 9.8 x10e3 /uL 3.4-10 .8 normal Not Available [facility] ([facility]) [address] [facility] [place], [address], 06/15/2025 08:07:33 06/14/20 25 06/14/2025 CBC WITH DIFFE RENTI AL/PL ATELE T RBC 4.89 x10e6 /uL 4.14-5 .80 normal Not Available [facility] ([facility]) [address] [facility] [place], [address], 06/15/2025 08:07:33 06/14/20 25 06/14/2025 CBC WITH DIFFE RENTI AL/PL ATELE T hemoglobin 15.1 g/dL 13.0-1 7.7 normal Not Available [facility] ([facility]) [address] [facility] [place], [address], 06/15/2025 08:07:33 06/14/2006/14/2025 CBC WITH DIFFE RENTI AL/PL ATELE T hematocrit 44.2 % 37.5-5 1.0 normal Not Available [facility] ([facility]) [address] [facility] [place] [place], [address], 06/15/2025 08:07:33 06/14/20 25 06/14/2025 CBC WITH DIFFE RENTI AL/PL ATELE T MCV 90 fL 79-97 normal Not Available [facility] ([facility]) [address] [place], [address], 06/15/2025 08:07:33 06/14/20 25 06/14/2025 CBC WITH DIFFE RENTI AL/PL ATELE T MCH 30.9 pg 26.6-3 3.0 normal Not Available [facility] ([facility]) [address] [facility] [place], [address], 06/15/2025 08:07:33 06/14/20 25 06/14/2025 CBC WITH DIFFE RENTI AL/PL ATELE T MCHC 34.2 g/dL 31.5-3 5.7 normal Not Available [facility] ([facility]) [address] [facility] [place], [address], 06/15/2025 08:07:33 06/14/20 25 06/14/2025 CBC WITH DIFFE RENTI AL/PL ATELE T RDW 12.1 % 11.6-1 5.4 Not Available [facility] ([facility]) [address] [facility] [place], [address], 06/15/2025 08:07:33 06/14/20 25 06/14/2025 CBC WITH DIFFE RENTI AL/PL ATELE T platelets 223 x10e3 /uL 150-45 0 normal Not Available [facility] ([facility]) [address] [facility] [place] [place], [address], 06/15/2025 08:07:33 06/14/20 25 06/14/2025 CBC WITH DIFFE RENTI AL/PL ATELE T neutrophils 62 % not estab. normal Not Available [facility] ([facility]) [address] [facility] [place] [place], [address], 06/15/2025 08:07:33 06/14/20 25 06/14/2025 CBC WITH DIFFE RENTI AL/PL ATELE T lymphs 26 % not estab. normal Not Available [facility] ([facility]) [address] [facility] [place], [address], 06/15/2025 08:07:33 06/14/20 25 06/14/2025 CBC WITH DIFFE RENTI AL/PL ATELE T monocytes 11 % not estab. normal Not Available [facility] ([facility]) [address] [place], [address], 06/15/2025 08:07:33 06/14/20 25 06/14/2025 CBC WITH DIFFE RENTI AL/PL ATELE T eos 1 % not estab. normal Not Available [facility] ([facility]) [address] [facility] [place], [address], 06/15/2025 08:07:33 06/14/20 25 06/14/2025 CBC WITH DIFFE RENTI AL/PL ATELE T basos 0 % not estab. normal Not Available [facility] ([facility]) [address] [facility] [place], [address], 06/15/2025 08:07:33 06/14/20 25 06/14/2025 CBC WITH DIFFE RENTI AL/PL ATELE T immature cells SIZE TESTER Not Available [facility] ([facility]) [address] [facility] [place], [place], [address], 06/15/2025 08:07:33 06/14/20 25 06/14/2025 CBC WITH DIFFE RENTI AL/PL ATELE T neutrophils (absolute) 6.1 x10e3 /uL 1.4-7. 0 normal Not Available [facility] ([facility]) [address] [facility] [place] [place], [address], 06/15/2025 08:07:33 06/14/20 25 06/14/2025 CBC WITH DIFFE RENTI AL/PL ATELE T lymphs (absolute) 2.5 x10e3 /uL 0.7-3. 1 normal Not Available [facility] ([facility]) [address] [place], [address], 06/15/2025 08:07:33 06/14/20 25 06/14/2025 CBC WITH DIFFE RENTI AL/PL ATELE T monocytes(ab solute) 1.0 x10e3 /uL 0.1-0. 9 above high normal Not Available [facility] ([facility]) [address] [place], [address], 06/15/2025 08:07:33 06/14/20 25 06/14/2025 CBC WITH DIFFE RENTI AL/PL ATELE T eos (absolute) 0.1 x10e3 /uL 0.0-0. 4 normal Not Available [facility] ([facility]) [address] [facility] [place] [place], [address], 06/15/2025 08:07:33 06/14/20 25 06/14/2025 CBC WITH DIFFE RENTI AL/PL ATELE T baso (absolute) 0.0 x10e3 /uL 0.0-0. 2 normal Not Available [facility] ([facility]) [address] [facility] [place] [place], [address], 06/15/2025 08:07:33 06/14/20 25 06/14/2025 CBC WITH DIFFE RENTI AL/PL ATELE T immature granulocytes 0 % not estab. Not Available [facility] ([facility]) [address] [facility] [place], [address], 06/15/2025 08:07:33 06/14/20 25 06/14/2025 CBC WITH DIFFE RENTI AL/PL ATELE T immature grans (abs) SIZE TESTER Not Available [facility] ([facility]) [address] [facility] [place], [address], 06/15/2025 08:07:33 06/14/20 25 06/14/2025 CBC WITH DIFFE RENTI AL/PL ATELE T NRBC SIZE TESTER Not Available [facility] ([facility]) [address] [facility] [place], [place], [address], 06/15/2025 08:07:33 06/14/20 25 06/14/2025 CBC WITH DIFFE RENTI AL/PL ATELE T hematology comments: SIZE TESTER Not Available [facility] ([facility]) [address] [facility] [place], [place], [address], 06/15/2025 08:07:33 06/14/20 25 06/14/2025 COMP. METAB OLIC PANEL (14) glucose 62 mg/dL 70-99 below low normal Not Available [facility] ([facility]) [address] [facility] [place], [place], [address], 06/15/2025 08:07:35 06/14/20 25 06/14/2025 COMP. METAB OLIC PANEL (14) BUN 20 mg/dL 6-24 normal Not Available [facility] ([facility]) [address] [facility] [place], [place], [address], 06/15/2025 08:07:35 06/14/20 25 06/14/2025 COMP. METAB OLIC PANEL (14) creatinine 0.99 mg/dL 0.76-1 .27 normal Not Available [facility] ([facility]) [address] [facility] [place], [place], [address], 06/15/2025 08:07:35 06/14/20 25 06/14/2025 COMP. METAB OLIC PANEL (14) eGFR 93 mL/mi n/1.7 3 >59 normal Not Available [facility] ([facility]) [address] [facility] [place], [place], [address], 06/15/2025 08:07:35 06/14/20 25 06/14/2025 COMP. METAB OLIC PANEL (14) interpretati on: Commen t GFR estim ate at the follo wing level for >or=3 month s is class ified as follo ws: GFR WITH KIDNE Y DAMAG E WITHO UT KIDNE Y DAMAG E >or=9 0 Stage 1 Yamini l 60-89 Stage 2 Decr eased GFR 30-59 Stage 3 Stage 3 15-29 Stage 4 Stage 4 <15 (or dialy sis) Stage 5 Stage 5 Estim ated GFR will over estim ate true GFR if serum creat inine is risin g as in acute renal failu re and will under estim ate true GFR if serum creat inine is decli noah as in resol ving acute renal failu re. Addit ional infor betty cabrera may be found at www.k doqi. org. Not Available [facility] ([facility]) [address] [facility] [place], [place], [address], 06/15/2025 08:07:35 06/14/20 06/14/2025 COMP. METAB OLIC PANEL (14) BUN/creatini ne ratio 20 9-20 normal Not Available [facility] ([facility]) [address] [place], [address], 06/15/2025 08:07:35 06/14/20 25 06/14/2025 COMP. METAB OLIC PANEL (14) sodium 138 mmol/ L 134-14 4 normal Not Available [facility] ([facility]) [address] [place], [address], 06/15/2025 08:07:35 06/14/20 25 06/14/2025 COMP. METAB OLIC PANEL (14) potassium 3.7 mmol/ L 3.5-5. 2 normal Not Available [facility] ([facility]) [address] [place], [address], 06/15/2025 08:07:35 06/14/20 25 06/14/2025 COMP. METAB OLIC PANEL (14) chloride 99 mmol/ L 96-106 normal Not Available [facility] ([facility]) [address] [place], [address], 06/15/2025 08:07:35 06/14/20 25 06/14/2025 COMP. METAB OLIC PANEL (14) carbon dioxide, total 28 mmol/ L 20-29 normal Not Available [facility] ([facility]) [address] [place], [address], 06/15/2025 08:07:35 06/14/20 25 06/14/2025 COMP. METAB OLIC PANEL (14) calcium 9.9 mg/dL 8.7-10 .2 normal Not Available [facility] ([facility]) [address] [place], [address], 06/15/2025 08:07:35 06/14/20 25 06/14/2025 COMP. METAB OLIC PANEL (14) protein, total 6.7 g/dL 6.0-8. 5 normal Not Available [facility] ([facility]) [address] [facility] [place], [address], 06/15/2025 08:07:35 06/14/20 25 06/14/2025 COMP. METAB OLIC PANEL (14) albumin 4.4 g/dL 4.1-5. 1 normal Not Available [facility] ([facility]) [address] [facility] [place], [place], [address], 06/15/2025 08:07:35 06/14/20 25 06/14/2025 COMP. METAB OLIC PANEL (14) globulin, total 2.3 g/dL 1.5-4. 5 Not Available [facility] ([facility]) [address] [facility] [place], [place], [address], 06/15/2025 08:07:35 06/14/20 25 06/14/2025 COMP. METAB OLIC PANEL (14) bilirubin, total 0.5 mg/dL 0.0-1. 2 normal Not Available [facility] ([facility]) [address] [facility] [place], [place], [address], 06/15/2025 08:07:35 06/14/20 25 06/14/2025 COMP. METAB OLIC PANEL (14) alkaline phosphatase 80 IU/L 47-123 normal Not Available [facility] ([facility]) [address] [facility] [place], [address], 06/15/2025 08:07:35 06/14/20 25 06/14/2025 COMP. METAB OLIC PANEL (14) AST (SGOT) 25 IU/L 0-40 normal Not Available [facility] ([facility]) [address] [facility] [place], [place], [address], 06/15/2025 08:07:35 06/14/20 25 06/14/2025 COMP. METAB OLIC PANEL (14) ALT (SGPT) 25 IU/L 0-44 normal Not Available [facility] ([facility]) [address] [facility] [place], [place], [address], 06/15/2025 08:07:35 06/14/20 25 06/15/2025 VITAM IN D, 25-HY DROXY vitamin D, 25-hydroxy 47.1 NG/mL 30.0-1 00.0 Vitam in D defic iency has been defin ed by the Insti tute of Medic ine and an Endoc rine Socie ty pract ice guide line as a level of serum 25-OH vitam in D less than 20 ng/mL (1,2) . The Endoc rine Socie ty went on to furth er defin e vitam in D insuf ficie ncy as a level betwe en 21 and 29 ng/mL (2). 1. IOM (Inst itute of Medic ine). 2010. Dieta ry refer ence intak es for calci um and D. Jenny owen [place]: [facility] . 2. Reese ruiz [place], Charleen conley [place], Tae off-F errarslan i DENT, et al. Evalu ation , treat ment, and preve ntion of vitam in D defic iency : an Endoc rine Socie ty clini david pract ice guide line. JCEM. 2010; 96(7) :1911 -30. Not Available [facility] ([facility]) [address] [facility] [place], [place], [address], 06/15/2025 08:07:37 06/14/20 25 06/14/2025 MAGNE SIUM magnesium 2.1 mg/dL 1.6-2. 3 normal Not Available [facility] ([facility]) [address] [facility] [place], [place], [address], 06/15/2025 08:07:37 11/25/19 25 elect femi fuller am No observ ation record ed. [email or web address] In-Office Order Internal Use Only DO Not Attach Compendium DO Not Attach Compendium, Do Not Delete/merge, [id number] 11/24/2024 12:41:19 11/26/19 25 11/24/2024 elect rocar diogr am No observ ation record ed. [email or web address] Not Available 2024 16:35:17 12/04/19 25 11/27/2024 cardi ac monit or No observ ation record ed. [facility] ([facility]) [address] [facility], [place], [address], 12/06/2024 10:54:49 12/21/19 25 elect rocar diogr am No observ ation record ed. In-Office Order Internal Use Only DO Not Attach Compendium DO Not Attach Compendium, Do Not Delete/merge, [id number] 12/20/2024 15:15:50 12/22/19 25 12/20/2024 elect rocar diogr am No observ ation record ed. [email or web address] Not Available 2024 10:23:56 01/28/20 25 elect rocar diogr am No observ ation record ed. [email or web address] In-Office Order Internal Use Only DO Not Attach Compendium DO Not Attach Compendium, Do Not Delete/merge, [id number] 01/27/2025 08:18:19 01/28/20 25 01/27/2025 elect rocar diogr am No observ ation record ed. [email or web address] Not Available 2024 09:34:16 03/07/20 25 elect rocar diogr am No observ ation record ed. In-Office Order Internal Use Only DO Not Attach Compendium DO Not Attach Compendium, Do Not Delete/merge, [id number] 03/07/2025 14:19:45 03/07/20 25 03/07/2025 elect rocar diogr am No observ ation record ed. [email or web address] Not Available 2024 17:52:14 05/13/20 25 elect rocar diogr am No observ ation record ed. [email or web address] In-Office Order Internal Use Only DO Not Attach Compendium DO Not Attach Compendium, Do Not Delete/merge, [id number] 05/13/2025 14:16:07 05/17/20 25 05/13/2025 elect rocar diogr am No observ ation record ed. [email or web address] Not Available 05/17 13:25:17 06/14/20 elect rocarslan diogr am No observ ation record ed. In-Office Order Internal Use Only DO Not Attach Compendium DO Not Attach Compendium, Do Not Delete/merge, [id number] 06/14/2025 10:44:40 06/15/20 25 06/14/2025 elect femi diogr am No observ ation record ed. [email or web address] Not Available 06/16 13:24:09 Result Notes None recorded. Problems Name Problem SNOMED Code Status Onset Date Resolution Date Notes Provider Name and Address Organization Details Recorded Time Obstructiv e sleep apnea syndrome 68113536 Active on biPAP Cee Raygoza PA-C [address] [place] [address], [phone], [facility] 4 12:16:31 Mixed hyperlipid emia 453583095 Active 2023 Natasha aceves [facility] 4 15:20:19 Benign essential hypertensi on 7810199 Active 2023 Natasha aceves [facility] 4 15:20:19 Dyspnea 712759749 Active 2023 Natasha aceves [facility] 4 15:20:20 Chest pain 85608019 Active 2023 Natasha aceves [facility] 4 15:20:22 Chronic combined systolic and diastolic heart failure 050829561676 100 Active 2023 Natasha aceves [facility] 4 15:20:23 Type 1 diabetes mellitus 81594935 Active 2023 Cee Raygoza PA-C [address] [place] [address], [phone], [facility] 4 12:15:11 Chronic obstructiv e pulmonary disease 06169506 Active 2023 Cee Raygoza PA-C [address] [place] [address], [phone], [facility] 4 12:16:46 Problem Notes None recorded. Procedures Surgical History Date Name Laterality Status Provider Name and Address Organization Details Recorded Time Hernia Repair completed Laura Trivedi [facility] 03/01/2024 16:37:06 Imaging Results None recorded. Procedure Notes None recorded. Medical Equipment None Reported. Allergies Allergen ID Allergen Name Allergen Category Reaction Reaction Severity Criticality Documentation Date Start Date Code Code System Note Provider Name and Address Organization Details Recorded Time 988437 Compazine medicatio n Not available Not available Not available 03/01/202446557 6 RxNorm sever e muscl e spasm Laura Encarnacion [facility] 16:29:57 213649 Imitrex medicatio n Not available Not available Not available 03/01/2024 23575 3 [facility] 16:30:08 053345 Motrin medicatio n Not available Not available Not available 03/01/202440814 8 RxNorm can' t take- harmf ul to my kidne ys Laura Encarnacion [facility] 4 16:30:51 436957 Non-stero idal anti-infl ammatory agent (substanc e) medicatio n other Not available Not available 03/01/2024 03976 5008 SNOMED Kortney Sevilla [facility] 4 12:49:07 509820 Toradol medicatio n Not available Not available Not available 03/01/2024 80071 RxNorm can' t take- harmf ul to my kidne kelly Encarnacion [facility] 16:31:19 823815 Wellbutri n medicatio n Not available Not available Not available 03/01/2024 42421 RxNorm suici daysi Laura Encarnacion [facility] 4 16:32:29 314247 codeine medicatio n itching Not available Not available 03/01/2024 2670 [facility] 4 12:49:07 077927 ibuprofen medicatio n other Not available Not available 03/03/2024 5640 Rx[facility] 4 12:49:07 214863 POLLEN EXTRACTS environme nt,medica tion Not available Not available Not available 03/03/2024 94320 6 [facility] 4 12:49:07 193193 cat dander environme nt Not available Not available Not available 03/03/2024 [facility] 4 12:49:07 508268 mold extract environme nt Not available Not available Not available 03/03/2024 86740 8 [facility] 4 12:49:07 399105 cigarette smoke environme nt Not available Not available Not available 03/03/2024 Kortney Sevilla [facility] 4 12:49:07 480879 hydralazi ne medicatio n dizziness Not available Not available 05/09/2025 5470 RxNorm Laura Encarnacion [facility] 5 10:42:26 Medications Name Sig Start Date Stop Date Status Note LastModified by Organization Details LastModified Time losartan 50 mg tablet Take 1 tablet twice a day by oral route. 12/21 completed Not Available Not Available Not Available celecoxib 200 mg capsule Take 1 capsule twice a day by oral route. active Not Available Not Available No t Available hydralazi ne 10 mg tablet Take 1 tablet twice a day by oral route. 05/09 completed dizzines s Not Available Not Available Not Available prednison e 10 mg tablet 03/03 [...] by oral route, for blood pressure control. 01/27 completed Not Available Not Available Not Available prednison e 20 mg tablet 03/03 completed Not Available Not Available Not Available amlodipin e 2.5 mg tablet Take 1 tablet every day by oral route. 2024 active Not Available Not Available Not Avai lable amlodipin e 5 mg tablet Take 1 [...] Not Available Not Available No t Available hydrocort isone acetate 25 mg rectal supposito ry Insert 1 supposit ory twice a day by rectal route for 14 days. 07/12 completed Not Available Not Available Not Available erythromy fish 250 mg tablet 125mg take 1/2 tab 4-6 times a day 03/03 completed Not Available Not Available Not Available cephalexi n 500 mg capsule 03/03 [...] Not Available lisinopri l 30 mg tablet Take 1 tablet every day by oral route. 03/07 completed Not Available Not Available Not Available mupirocin 2 % topical ointment 05/31 completed Not Available Not Available Not Available furosemid e 20 mg tablet Take 1 tablet every day by oral route as needed for 90 days. 05/13 completed Not Available Not Available Not Available metoprolo l succinate ER 25 mg tablet,ex tended release 24 hr Take 1 tablet every day by oral route at bedtime. 01/27 completed Not Available Not Available Not Available lisinopri l 40 mg tablet Take 1 tablet every day by oral route. 2024 active Not Available Not Available Not Avai lable ondansetr on 4 mg disintegr ating tablet 03/03 completed Not Available Not Available Not Available doxycycli ne hyclate 100 mg tablet TAKE 1 TABLET BY MOUTH TWICE DAILY FOR 7 DAYS 03/03 completed Not Available Not Available Not Available Sudafed 12 Hour 120 mg tablet,ex tended release Take 1 tablet every 12 hours by oral route. 01/27 completed Not Available Not Available Not Available spironola ctone 50 mg tablet Take 1 tablet every day by oral route. 01/27 completed Decrease d dose Not Available Not Available Not Available Ventolin HFA 90 mcg/actua tion aerosol inhaler prn 05/13 completed Not Available Not Available Not Available azithromy [...] Available No t Available potassium acetate 99mg 5 tablets daily active OTC per patient Not Available Not Available Not Available Jardiance 10 mg tablet Take 1 tablet every day by oral route for 90 days. 05/13 completed Not Available Not Available Not Available Arnuity Ellipta 100 mcg/actua tion powder for inhalatio n 05/13 completed Not Available Not Available Not Available Humalog KwikPen U-200 Insulin 200 unit/mL (3 mL) subcutane ous 05/31 completed Not Available Not Available Not Available Entresto 24 mg-26 mg tablet Take 0.5 tablets every day by oral route in the morning. 03/21 completed dizzines s Not Available Not Available Not Available Basaglar KwikPen U-100 Insulin 100 unit/mL (3 mL) subcutane ous active Not Available Not Available Not Available Admelog U-100 Insulin lispro 100 unit/mL subcutane ous solution Daily active Not Available Not Available Not Available Baqsimi 3 mg/actuat ion nasal spray 05/31 completed Not Available Not Available Not Available Gvoke HypoPen 2-Pack 1 mg/0.2 mL subcutane ous auto-inje ctor active Not Available Not Available Not Available Vitals Date Recorded Body height Body mass index (BMI) Body weight Heart rate Systolic And Diastolic Provider Name and Address Organization Details Last Updated DateTime 12/20/2024 182.88 cm 18.1 kg/m2 05570.89 g 61 /min 150/84 mm[Hg] Geri Ortega [facility] 12/20/2024 15:32:59 Date Recorded Body height Body mass index (BMI) Body weight Heart rate Systolic And Diastolic Provider Name and Address Organization Details Last Updated DateTime 01/27/2025 182.88 cm 32.4 kg/m2 254333.2 9 g 57 /min 146/90 mm[Hg] [facility] 01/27/2025 08:29:38 Date Recorded Body height Body mass index (BMI) Body weight Oxygen saturation Oxygen saturation in Arterial blood by Pulse oximetry Heart rate Systolic And Diastolic Provider Name and Address Organization Details Last Updated DateTime 182.88 cm 32.5 kg/m2 359250. 45 g 97 % 97 % 69 /min 162/88 mm[Hg] [facility] 14:31:35 Date Recorded Systolic And Diastolic Provider Name and Address Organization Details Last Updated DateTime 05/13/2025 150/82 mm[Hg] Cee Raygoza PA-C [address] [place] [address], [phone], [facility] 05/13/2025 14:47:45 Date Recorded Body height Body mass index (BMI) Body weight Oxygen saturation Oxygen saturation in Arterial blood by Pulse oximetry Heart rate Systolic And Diastolic Provider Name and Address Organization Details Last Updated DateTime 182.88 cm 32.4 kg/m2 135959. 58 g 98 % 98 % 67 /min 173/94 mm[Hg] Zari Li [facility] 14:17:33 Date Recorded Systolic And Diastolic Provider Name and Address Organization Details Last Updated DateTime 06/14/2025 136/76 mm[Hg] Cee Raygoza PA-C [address] [place], [address], [facility] 06/14/2025 11:15:55 Date Recorded Body height Body mass index (BMI) Body weight Heart rate Systolic And Diastolic Provider Name and Address Organization Details Last Updated DateTime 06/14/2025 182.88 cm 32.2 kg/m2 099397.7 9 g 66 /min 159/85 mm[Hg] Geri Ortega [facility] 06/14/2025 10:54:33 Social History Question Answer Notes LastModified by Organizat ion Details LastModified Time Tobacco Smoking Status [facility] 03/03/2024 12:49:23 Do You Have An Advance Directive? No [email or web address] Information not available 03/03/2024 Are You Blind Or Do You Have Difficulty Seeing? No [email or web address] Information not available 03/03/2024 Is Blood Transfusion Acceptable In An Emergency? Yes [email or web address] Information not available 03/03/2024 What Is Your Level Of Caffeine Consumption? Occasional [email or web address] Information not available 03/03/2024 Are You Deaf Or Do You Have Serious Difficulty Hearing? No [email or web address] Information not available 03/03/2024 What Type Of Diet Are You Following? SPECIFIC [email or web address] Information not available 03/03/2024 Which Of Your Hands Is Dominant? Left [email or web address] Information not available 03/03/2024 What Was The Date Of Your Most Recent Tobacco Screening? 06/14/2025 Information not available 06/14/2025 Do You Have Any Pets? Yes Information not available 03/03/2024 What Is Your Relationship Status? Single [email or web address] Information not available 03/03/2024 Has Tobacco Cessation Counseling Been Provided? No Information not available 11/05/2024 Sex: Unknown Functional Status Question Answer Note LastModified by Organizat ion Details LastModified Time Do you use any illicit or recreational drugs? No Information not available 10/19/2024 Do you or have you ever used any other forms of tobacco or nicotine? No [email or web address] Information not available 03/03/2024 What is your level of alcohol consumption? None [email or web address] Information not available 03/03/2024 Are you currently employed? No [email or web address] Information not available 03/03/2024 Are you able to care for yourself independently? No [email or web address] Information not available 03/03/2024 What is your exercise level? Occasional [email or web address] Information not available 03/03/2024 Mental Status Question Answer Note LastModified by Organization D etails LastModified Time Do you feel stressed (tense, restless, nervous, or anxious, or unable to sleep at night)? US4612-4 [email or web address] Information not available 11/24/2024 Family History Relationship Description Onset Age of this Age Resolved Age Notes LastModified by Organization Details LastModified Time Mother Depressive disorder [email or web address] Not available 2023 12:49:12 Unspecified Relation Malignant neoplasm of colon [email or web address] Not available 2023 12:49:12 Unspecified Relation Hyperlipidem ia [email or web address] Not available 2023 12:49:12 Maternal Grandmother Myocardial infarction [email or web address] Not available 03/03 12:49:12 Maternal Grandmother Family history of malignant neoplasm Not available 2023 12:49:12 Maternal Grandmother Hypertensive disorder Not available 2023 12:49:12 Maternal Grandfather Myocardial infarction Not available 03/03 12:49:12 Maternal Grandfather Cerebrovascu lar accident [email or web address] Not available 05/2024 12:49:12 Maternal Grandfather Diabetes mellitus [email or web address] Not available 2023 12:49:12 Father Depressive disorder [email or web address] Not available 2023 12:49:12 Father Diabetes mellitus [email or web address] Not available 2023 12:49:12 Medical History Condition Response Diabetes (Insulin Dependent) Y High Blood Pressure (Hypertension) Y Anxiety N Edema (Swelling) Y Asthma Y Depression Y High Cholesterol (Hyperlipidemia) Y Gastrointestinal Disease (IBS, Gastritis , Ulcer, Acid Reflux) Y COPD (Chronic Obstructive Pulmonary Dise ase) Y Neuropathy (Numbness, Pain, Tingling) Y Sleep Apnea Y CHF (Congestive Heart Failure) Y Bleeding Problems Y Past Encounters Encounter ID Performer Location Encounter Start Date Encounter Closed Date Diagnosis/Indication Diagnosis SNOMED-CT Code Diagnosis ICD10 Code Diagnosis IMO Codes Diagnosis Note [id number] Shubham Pineda MD [facility] [address] [place] [phone] 03/03/2024 12:39:58 03/03/2024 14:27:57 Chronic combined systolic and diastolic heart failure 2165741185 54771 I50.42 Chest pain 82792513 R07. 2 Dyspnea 681067302 R06.02 Benign ess ential hypertension 8326410 I10 Mixed hyperlipidemia 267 442727 E78.2 Type 2 [place] mellitus without complication 091510492 E11.9 [id number] Shubham Pineda MD [facility] [address] [place] [phone] 6 05/31/2024 13:17:52 05/31/2024 14:35:17 Chronic diastolic heart failure 304466885 I50.32 Benign ess ential hypertension 9491941 I10 Mixed hyperlipidemia 267 978471 E78.2 Type 1 [place] mellitus 50329923 E10.9 Edema of l ower extremity 398608534 R60.0 [id number] Shubham Pineda MD [facility] [address] [place] [phone] 07/12/2024 09:13:48 07/12/2024 12:10:27 Chronic combined systolic and diastolic heart failure 4896685552 27346 I50.42 STOP lisinopril 10mg tablets dailySTOP amlodipine 7.5mg tablets dailySTART Entresto 24-26mg tablet twice dailySTART Jardiance 10mg tablets dailyConti nue metoprolol succinate 25mg tablets at bedtime Benign ess ential hypertension 6784555 I10 Type 1 [place] mellitus 66048594 E10.9 Chronic ob structive pulmonary disease 40777720 J44.9 Mixed hyperlipidemia 267 072375 E78.2 Dyspnea 919984209 R06.00 History of syncope 48448 34333 90282 Z86.79 [id number] Shubham Pineda MD [facility] [address] [facility],[address] [address] 09/16/2024 14:58:36 09/16/2024 16:11:08 Chronic combined systolic and diastolic heart failure 6163452449 57322 I50.42 Benign ess ential hypertension 3437170 I10 Mixed hyperlipidemia 267 127702 E78.2 Chronic ob structive pulmonary disease 04957031 J44.9 Type 1 [place] mellitus 35319260 E10.9 Obstructiv e sleep apnea syndrome 19883927 G47.33 Syncope 599276518 R55 [id number] Shubham Pineda MD [facility] [address] [phone] 10/19/2024 08:03:44 10/19/2024 10:50:35 Chronic combined systolic and diastolic heart failure 7571634982 60684 I50.42 STOP Entresto 0.5 tablets twice dailySTART losartan 12.5mg tablets in the AMContinue metoprolol succinate 12.5mg tablets at bedtime Benign ess ential hypertension 7072161 I10 Chronic ob structive pulmonary disease 69314852 J44.9 Mixed hyperlipidemia 267 467103 E78.2 Obstructiv e sleep apnea syndrome 88384690 G47.33 Type 1 [place] mellitus 07353446 E10.9 Increased thirst 6857177 03 R63.1 History of syncope 59852 83093 65110 Z86.79 [id number] Shubham Pineda MD [facility] [address] [facility],[address] [address] 11/05/2024 14:36:23 11/05/2024 15:32:06 Chronic combined systolic and diastolic heart failure [id number] 48549 I50.42 Chronic ob structive pulmonary disease 59893547 J44.9 Benign ess ential hypertension 0010124 I10 Type 1 [place] betes mellitus 54524635 E10.9 Mixed hyperlipidemia 267 579261 E78.2 Edema of l ower extremity 448169285 R60.0 [id number] Shubham Pineda MD [facility] [address] [address] 11/24/2024 12:34:31 11/24/2024 13:26:09 Chronic combined systolic and diastolic heart failure [id number] 06536 I50.42 Benign ess ential hypertension 9273211 I10 Mixed hyperlipidemia 267 382188 E78.2 Obstructiv e sleep apnea syndrome 39400298 G47.33 Type 1 [place] betes mellitus 87142785 E10.9 Hyperkalemia 16258171 E8 7.5 [id number] Shubham Pineda MD [facility] [address] [place] [address] 12/20/2024 15:06:18 12/20/2024 17:22:12 Benign essential hypertension 9932177 I10 STOP Losartan 50mg BIDSTART lisinopril 20mg tablets dailyConti nue spironolac tone 50mg tablets dailyConti nue metoprolol succinate 25mg tablets daily Chronic co mbined systolic and diastolic heart failure [id number] 39904 I50.42 STOP Losartan 50mg BIDSTART lisinopril 20mg tablets dailyConti nue spironolac tone 50mg tablets dailyConti nue metoprolol succinate 25mg tablets dailyConti nue jardiance 10mg tablets daily Type 1 [place] betes mellitus 01013850 E10.9 Mixed hyperlipidemia 267 193004 E78.2 History of syncope 11230 32463 55830 Z86.79 Labile ess ential hypertension 941439250 I10 Fatigue 02357558 R53.83 [id number] Shubham Pineda MD [facility] [address] [address] 01/27/2025 08:09:54 01/27/2025 09:03:44 Benign essential hypertension 4299408 I10 Type 1 [place] betes mellitus 75709412 E10.9 Mixed hyperlipidemia 267 622468 E78.2 [id number] Shubham Pineda MD [facility] [address] [facility],[address] [place] [address] 03/07/2025 14:18:27 03/07/2025 15:46:25 Chronic combined systolic and diastolic heart failure 3787280730 55836 I50.42 Dilated cardiomyopathy 519848536 I42.0 74500 Dyspnea 022734458 R06.02 [id number] Shubham Pineda MD [facility] [address] [facility],[address] [place] [address] 05/13/2025 13:48:54 05/13/2025 15:03:56 Benign essential hypertension 2862584 I10 Mixed hyperlipidemia 267 881862 E78.2 Type 1 [place] betes mellitus 84947668 E10.9 Chronic ob structive pulmonary disease 86628314 J44.9 Obstructiv e sleep apnea syndrome 44382182 G47.33 Edema of l ower extremity 086468123 R60.0 [id number] Cee Raygoza PA-C [facility] [address] [facility] [address] [place] [address] 06/14/2025 10:44:18 06/14/2025 11:25:33 Benign essential hypertension 2887943 I10 Mixed hyperlipidemia 267 912699 E78.2 Chronic ob structive pulmonary disease 88375954 J44.9 Type 1 [place] bet[place] mellitus 59866191 E10.9 Dilated cardiomyopathy 674472492 I42.0 51590 Fatigue 70807090 R53.83 [id number] Health Concerns Section Related Observation LastModified by Organization Detai ls LastModified Time None Recorded Concern Status LastModified by Organization Details LastModified Time None Recorded Advance Directives Directive N: Payers Insurance Date Sequence Insurance Name Policy Number Policy Rodriguez Covered Member ID Rodriguez Member ID Guarantor Name 06/14/2025 1 [place]IC[place]: [employer] Shubham Pappas [id number] Shubham Santiagorachell 06/14/2025 2 MED[place]ID-[place]: [facility] Shubham Pappas [id number] Shubham aPppas Notes Date Note Type Note Provider Name and Address Organization Details Recorded Time 12/20/2024 text/html ROS as noted in the HPI Shubham Pappas is presenting for a post hospitalization appointment. He [...] which brought him to the ER in [place]. He states he taken a THC pill [...] night, lower extremity edema. Cee Raygoza PA-C [address] [place] [address], [phone], [facility]. 12/21/2024 12:01:14 05/13/2025 text/html ROS as noted in the HPI Shubham Pappas is presenting to the office for a follow up appointment. He has a past medical history of Hypertension, hyperlipidemia, dilated cardiomyopathy, type 1 diabetes, sleep apnea, COPD. Shubham contacted the office on 05/09/2025 with concerns of elevated blood pressures and dehydration. He was scheduled for an appointment today. Today, Shubham feels well. He is concerned that his blood pressure has remained elevated at home and he notes when his blood pressure is greater than 140 he can develop a headache and vision changes. He did recently reduce his vitamin D dosage which he feels has significantly improved his dehydration status. He is also in the process of obtaining specialized orthotics for his bilateral tendon ruptures in his legs which he states are not amenable to surgery. Denies shortness of breath, chest pain, headache, dizziness, light headedness, palpitations, syncope, near syncope, changes in vision, jaw pain, arm pain on exertion, numbness, weakness, orthopnea or sleeping with more pillows at night, lower extremity edema. Cee Raygoza PA-C [address] [place], [address], [facility]. 05/13/2025 15:14:54 06/14/2025 text/html ROS as noted in the HPI Shubham Pappas is presenting to the office for a follow up appointment. He has a past medical history of Hypertension, hyperlipidemia, dilated cardiomyopathy, type 1 diabetes, sleep apnea, COPD. His last appointment in our office was on 05/13/25 with me. At this visit we discussed that he continued to have labile blood pressures at home. He had been independently adjusting his medications at home and increasing spironolactone back to 25 mg daily. His blood pressure log from home revealed the systolic blood pressures 130-150s. He would report that when his blood pressure was 140 systolic or higher he would have a headache and intermittent blurred vision. His blood pressure in office was 150/82 and he was concerned about dehydration and would not like to advance his furosemide dose. He was asked to restart the amlodipine 2.5 mg daily and to closely monitor his blood pressure at home. Today, Shubham feels overall well. His blood pressure has improved a lot at home. He has had some lows but feels it is related to dehydration. Blood pressure log 100-130s systolic. He has been feeling fatigued and tires easily. He had a steroid shot yesterday. Denies shortness of breath, chest pain, headache, dizziness, light headedness, palpitations, syncope, near syncope, changes in vision, jaw pain, arm pain on exertion, numbness, weakness, orthopnea or sleeping with more pillows at night, lower extremity edema. ----Stress 03/02/24, Echo 11/09/24, Monitor 11/27/24, Lipid 12/07/24 Cee Raygoza PA-C [address] [place], [address], [facility]. 06/14/2025 11:47:55
--- OUTSIDE RECORDS SUMMARY | 2025-06-28 16:18 | XMS_ITS | Continuity of Care Document ---
Author Organization [facility] Address [address] [place] [address] Phone [phone] Social History Type Date Description Comments Sex Male Sex Unknown Medical Devices Description No Information Available Encounters Description No Information Available Assessments Description No Information Available Plan of Treatment No Information Available Functional Status Description No Information Available Mental Status Description No Information Available Referrals Description No Information Available
--- OUTSIDE RECORDS SUMMARY | 2025-06-28 16:18 | XMS_ITS | Clinical Summary ---
Author Organization [facility] Address [address] [place] [address] Care Team Providers Care Surveillance Supervisor Name Role Phone Unavailable Primary Care [...]
--- OUTSIDE RECORDS SUMMARY | 2025-06-28 16:18 | XMS_ITS | Clinical Summary ---
Author Organization [facility] Address [address] [place] [address] Phone Care Team Providers Care Cnmt Name Role Phone Doretha Pablo MD Primary Care Provider [phone] Allergies Active Allergy Reactions Criticality Noted Date [...] 2 Refills, Maintenance, 04/05/25 1:01:00 PM EDT, [facility], 183, cm, 03/16/25 13:29:00 EDT, [...] 6 Refills, Maintenance, 02/05/25 10:20:00 AM EDT, [facility], 183, cm, 12/23/24 8:32:00 EDT, Height, 105.5, kg, 12/15/24 14:39:00 EDT, Dry Weight 02/06/20 25 Active BASAGLAR KWIKPEN U-100 INSULIN 100 unit/mL (3 mL) InPn injection pen See Instructions, INJECT 60 UNITS SUBCUTANEOUS INFUSION DAILY. USE IN CASE OF PUMP FAILURE TO INJECT 60 UNITS DAILY, # 15 mL, 11 Refills, Maintenance, 10/27/24 9:36:00 AM EST, [facility], 183, cm, 10/21/24 10:59:00 EST, [...] Description 05/10/2025 2:00 PM EDT Office Visit [facility] Department of Orthopaedic Surgery, Foot & Ankle Service [address] [place] [address] Raz Dickerson PA-C Arthritis of right ankle (Primary Dx); Chronic pain of left ankle; Pes planus of both feet; History of type 1 diabetes mellitus 05/10/2025 12:19 PM EDT - 05/10/2025 11:59 PM EDT Hospital Encounter [facility] - Diagnostic Radiology, [address] [place] [address] Raz Dickerson PA-C Discharge Disposition: Home or Self Care 05/09/2025 Orders Only [facility] [address] [place] [address] Pimlott, Danuta Pain (Primary Dx) 04/05/2025 Transcribe Orders [facility] Orthoped[facility] & Sports Medicine [address] [place] [address] Doretha Pablo MD from Last 3 Months [...] with a working camera? Not on file Sex and Gender Information Value Date Recorded Sex Assigned at Not on file Legal Sex Male 9:28 PM EDT Gender Identity Choose not to disclose 12:48 PM EDT Sexual Orientation Choose not to disclose 2024 12:48 PM EDT Plan of Treatment Upcoming Encounters Date Type Department Care Team (Late st Contact Info) Description 08/09/2025 1:00 PM EST Office Visit [facility] Department of Orthopaedic Surgery, Foot & Ankle Service [address] [place] [address] Raz Dickerson PA-C [address] [address] [email or web address] Maintenance Due Date Last Done [...] Months Insurance MEDICARE PART A & B [employer] MEDICARE PART A & B [employer] MEDICARE PART A & B MEDICARE PART A & B MEDICARE PART A & B [facility]IC[facility] PART A & [facility] & [facility] MEDICARE PART A & B [facility] MEDICARE PART A & B [facility] Care Teams Cnmt Relationship Specialty Start Date End Date Doretha Pablo MD [address] [place] [phone] PCP - General Internal Medicine 03/18/25 Additional Source Comments The information contained in this document represents components of the legal health record. It is not the complete legal health record.[facility]
--- OUTSIDE RECORDS SUMMARY | 2025-06-28 16:18 | XMS_ITS | Clinical Summary ---
Author Organization [facility] Address [address] [place] [address] Care Team Providers Care Pharmacology Associate Name Role Phone Unavailable Primary Care Provider [...]
--- OUTSIDE RECORDS SUMMARY | 2025-06-28 16:19 | XMS_ITS | Data Portability ---
Author Organization [place] [facility] Address [facility] [place] [address] Care Team Providers Care Power Tong Operator Name Role Phone HIMANSHULizabeth LATONYA Primary Care Provider [phone] JOHANNY ARCEO Primary Care Provider RYLEY RODRIGUEZ OTHER LAVERNE TRINH Transcribing Operators Supervisor Assessment Encounter Date Assessment Date Assessment LastModified [...] care were discussed with the Virtual Physician hyperion developer for [facility], Dr. Rascon. Pt advised to take 40meq of Potassium daily in either a single or divided dose depending on tolerance. Pt has 20meq in the home at this time so script noted needed. 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 We cannot always find the exact [...] in your condition between 8am-10pm, please call [facility] at [phone] to help navigate your care. In order [...] symptoms. Time On Scene with Patient: 00:37:26 [email or web address] Not available 11/04/2021 15:58:15 11/06/2021 11/06/2021 Proper Personal Protective Equipment (PPE), including gloves, eye protection and masks were donned and doffed appropriately and all equipment cleaned using approved technique with germicidal disposable wipes prior to and after care of this patient according to [facility] infection prevention protocols. Overview/History: 46 yo [...] pertinent in my medical decision making today. [email or web address] Not available 11/06/2021 09:29:59 Plan of Treatment Reminders Order Date Submit Date Provider Last Modified By Organization Details Last Modified Time Details Appointments None recorded. Lab unlisted lab - covid-19 (novel coronavirus ) PCR 2021 022 [email or web address] [id number] [facility] (Centralized Electronic Ordering - All Locations), Patient Can Go To The Location Of Their Choice, [id number] 2 10:14:48 BMP + ionized calcium, serum or plasma 2020 [facility], [address] [place], [address], 17:17:37 BMP + ionized calcium, serum or plasma 2020 021 [facility], [address] [place], [address], 2 05:01:21 CBC w/ auto diff - Collected by [facility] Patient Can Go To The Location Of Their Choice, [id number] 00:44:12 Referral None recorded. Procedures None recorded. Surgeries None recorded. Imaging XR, chest, 2 view - Ordered by [facility] 2021 022 [facility] ([facility]), [address] [place], [address], 2 17:35:38 XR, foot, 3 or more view 2020 [facility] ([facility]), [address] [place], [address], 1 08:03:17 Medication Orders prednisone 10 mg tablet 2021 022 [email or web address] Not available 16:27:12 prednisone 20 mg tablet 2021 022 esther [email or web address] [facility], [address] [place], [place], [id number], 14:20:21 azithromyci n 250 mg tablet 2021 022 [facility]09042, [address] [place], [place], [id number], 14:11:40 Voltaren Arthritis Pain 1 % topical gel 2020 021 [facility]190, [address] [place], [place], [id number], 14:27:54 Patient TargetsNo targets recorded. Patient Instructions Encounter Date Encounter Id Patient Instructions Last Modified By Organization Details Last Modified Time 03/03/2021 [id number] gastroesophageal reflux disease (GERD): care instructions [email or web address] Not available 03/03/2021 14:03:36 Thank you for yo ur visit with [facility]. We cannot always find the exact cause of your symptoms during your initial visit. Your potassium level was found to be low at 2.9 on exam. Please take 40meq of Potassium daily either in a single dose or a divided dose for the next 3 days, starting today. [facility] will come out to reevaluate your [...] condition between 8am-10pm, please call [facility] at [phone] to help navigate your care. kevin Not [...] 12-17 [email or web address] Not available 03/03/2021 13:51:42 03/06/2021 [id number] WE CAME TO SEE Y OU TODAY [...] LABS IN A WEEK. PLEASE CALL YOUR SINGLE STAYER OPERATOR THEY ARE THE ONE THAT PRESCRIBES THE LASIX AND YOU MAY NEED TO BE ON SENIOR CARE POTASSIUM SUPPLEMENTS WHICH [facility] CANNOT PRESCRIBE- THIS WOULD NEED TO COME FROM EITHER PCP OR SINGLE STAYER OPERATOR [email or web address] Not available 03/06/2021 10:18:00 11/04/2021 [id number] cough: care instructions [email or web address] Not available 11/04/2021 14:08:13 You have been se en by [facility] for productive cough. Upon assessment we found abnormal lung sounds. Chest x-ray was ordered to rule out pneumonia. Covid 19 test pending and you will be contacted if results are positive. Prednisone and Azithromycin was faxed over to your pharmacy. Please follow up with PCP or seek emergency service with worsening of symptoms, shortness of breath, chest pain, fever over 105 degrees. [email or web address] Not available 11/04/2021 14:15:25 11/06/2021 [id number] Inhaler Instruct ions Before use, you need [...] is a steroid medicine (also called a g lucocorticoid or c orticosteroid ), rinse out your mouth, gargle, and [...] after cleaning actually helps it work better. [email or web address] Not available 11/06/2021 08:56:33 Reason for Referral [...] Go To The Location Of Their Choice, [id number] 03/04/2021 00:44:12 03/03/2003/04/2021 COMPL ETE CBC WITH DIFF eo 2.1 % (0-6) Not Available [facility] (Centralized Electronic Ordering - All Locations) Patient Can Go To The Location Of Their Choice, [id number] 03/04/2021 00:44:12 03/03/2003/04/2021 COMPL ETE CBC WITH DIFF baso 0.3 % (0-2) Not Available [facility] (Centralized Electronic Ordering - All Locations) Patient Can Go To The Location Of Their Choice, [id number] 03/04/2021 00:44:12 03/03/2003/04/2021 COMPL ETE CBC WITH DIFF imm gran 0.4 % Not Available [facility] (Centralized Electronic Ordering - All Locations) Patient Can Go To The Location Of Their Choice, [facility] 03/04/2021 00:44:12 03/03/2003/03/2021 BMP + IONIZ ED CALCI UM, SERUM OR PLASM A glu 144 mg/dL 70-105 Not Available [facility] [place], [address], 03/03/2021 13:50:34 03/03/20 21 03/03/2021 BMP + IONIZ ED CALCI UM, SERUM OR PLASM A BUN 24 mg/dL 8-26 Not Available [facility] [address] [place], [address], 03/03/2021 13:50:34 03/03/20 21 03/03/2021 BMP + IONIZ ED CALCI UM, SERUM OR PLASM A crea 1.4 mg/dL 0.6-1. 3 Not Available [facility] [address] [place], [address], 03/03/2021 13:50:34 03/03/20 21 03/03/2021 BMP + IONIZ ED CALCI UM, SERUM OR PLASM A Na 138 mmol/ L 138-14 6 Not Available [address], [address], 03/03/2021 13:50:34 03/03/20 21 03/03/2021 BMP + IONIZ ED CALCI UM, SERUM OR PLASM A K 2.9 mmol/ L 3.5-4. 9 Not Available [address], [address], 03/03/2021 13:50:34 03/03/20 21 03/03/2021 BMP + IONIZ ED CALCI UM, SERUM OR PLASM A cL 91 mmol/ L 98-109 Not Available [address], [address], 03/03/2021 13:50:34 03/03/20 21 03/03/2021 BMP + IONIZ ED CALCI UM, SERUM OR PLASM A TCO2 31 mmol/ L 24-29 Not Available [address], [address], 03/03/2021 13:50:34 03/03/20 21 03/03/2021 BMP + IONIZ ED CALCI UM, SERUM OR PLASM A angap 20 mmol/ L 10-20 Not Available [address], [address], 03/03/2021 13:50:34 03/03/20 21 03/03/2021 BMP + IONIZ ED CALCI UM, SERUM OR PLASM A ica 1.23 mmol/ L 1.12-1 .32 Not Available [address], [address], 03/03/2021 13:50:34 03/03/20 21 03/03/2021 BMP + IONIZ ED CALCI UM, SERUM OR PLASM A HCT 40 %pcv 38-51 Not Available [address], [address], 03/03/2021 13:50:34 03/03/20 21 03/03/2021 BMP + IONIZ ED CALCI UM, SERUM OR PLASM A Hb 13.6 g/dL 12-17 Not Available [address], [address], 03/03/2021 13:50:34 03/06/20 21 03/06/2021 BMP + IONIZ ED CALCI UM, SERUM OR PLASM A glu 183 mg/dL 70-105 Not Available [address], [address], 03/08/2021 17:17:37 03/06/20 21 03/06/2021 BMP + IONIZ ED CALCI UM, SERUM OR PLASM A BUN 19 mg/dL 8-26 Not Available [address], [address], 03/08/2021 17:17:37 03/06/20 21 03/06/2021 BMP + IONIZ ED CALCI UM, SERUM OR PLASM A crea 1.2 mg/dL 0.6-1. 3 Not Available [address], [address], 03/08/2021 17:17:37 03/06/20 21 03/06/2021 BMP + IONIZ ED CALCI UM, SERUM OR PLASM A Na 138 mmol/ L 138-14 6 Not Available [address], [address], 03/08/2021 17:17:37 03/06/20 21 03/06/2021 BMP + IONIZ ED CALCI UM, SERUM OR PLASM A K 3.3 mmol/ L 3.5-4. 9 Not Available [address], [address], 03/08/2021 17:17:37 03/06/20 21 03/06/2021 BMP + IONIZ ED CALCI UM, SERUM OR PLASM A cL 91 mmol/ L 98-109 Not Available [address], [address], 03/08/2021 17:17:37 03/06/20 21 03/06/2021 BMP + IONIZ ED CALCI UM, SERUM OR PLASM A TCO2 31 mmol/ L 24-29 Not Available [place] [address] [place], [address], 03/08/2021 17:17:37 03/06/20 21 03/06/2021 BMP + IONIZ ED CALCI UM, SERUM OR PLASM A angap 21 mmol/ L 10-20 Not Available [address], [address], 03/08/2021 17:17:37 03/06/20 21 03/06/2021 BMP + IONIZ ED CALCI UM, SERUM OR PLASM A ica 1.17 mmol/ L 1.12-1 .32 Not Available [address], [address], 03/08/2021 17:17:37 03/06/20 21 03/06/2021 BMP + IONIZ ED CALCI UM, SERUM OR PLASM A HCT 39 %pcv 38-51 Not Available [place] [address] [place], [address], 03/08/2021 17:17:37 03/06/20 21 03/06/2021 BMP + IONIZ ED CALCI UM, SERUM OR PLASM A Hb 13.3 g/dL 12-17 Not Available [address], [address], 03/08/2021 17:17:37 11/05/19 22 11/06/2021 COVID -19 [...] ng. Resul t repor dottie to the [facility]. This test has been autho rized by the FDA under an Emerg ency Use Autho rizat ion (EUA) for use by autho rized labor atori es. Test perfo rmed by [facility] zambr[facility] at the [facility] and Annmarie claros, [address] [place] [address] . CLIA ID: [id number] , CAP: [id number]. Medic al Direc tor: Caitlin Wells, PhD FACMG (NOTE ) The [facility] SARS- CoV-2 Real- time Rever se [...] limit ed to the [facility] Shamika Francis orfransisca at the [facility] which is certi fied under the Clini [...] Go To The Location Of Their Choice, [address] 11/06/2021 09:19:20 03/15/20 21 XR, foot, 3 or more view No observ ation record ed. [facility]) [address] [facility], [place], [address], 03/15/2021 08:28:37 11/05/19 22 11/04/2021 XR, chest [...] The findin gs are improv ed from . ELECTR ONICAL LY SIGNED BY OSIRIS REYNOLDS [...] The findin gs are improv ed from 25OCT 020. Electr onical ly signed by OSIRIS REYNOLDS D.O. 022 5:20:3 6 PM EDT. [email or web address] [facility] [address] [facility] [address], [place], [address], 11/05/2021 11:18:22 Result Notes Documentation Provider Name [...] disease. The findings are improved from 18JUN2020. Electronically signed by OSIRIS VARGAS D.O. 11/04/2021 5:20:36 PM EDT. Kerrie aceves, [place] [facility] 11/05/2021 11:18:22 Problems Name Problem SNOMED Code Status Onset Date Resolution Date Notes Provider Name and Address Organization Details Recorded Time Diabetes mellitus 09419143 Active [address] OLGU[address] NP [address], [place], [address], [place] [facility] 0 14:35:03 Problem Notes None recorded. Procedures Surgical History Date Name Laterality Status Provider Name and Address Organization Details Recorded Time 03/06/20 21 Venipuncture - DH completed DALIA URBINA NP [address], [place], [address], [place] [facility] 03/06/2021 10:30:22 03/03/20 21 Venipuncture - DH completed GABY APARICIO NP [address], [place], [address], [place] [facility] 03/03/2021 13:40:38 03/03/20 21 ECG Interpretation - completed GABY APARICIO NP [address], [place], [address], [place] [facility] 03/03/2021 14:30:14 06/20/20 20 Venipuncture - completed BOGDAN REHMAN [address], [place], [address], [place] [facility] 06/20/2020 15:33:27 06/17/20 20 Venipuncture - completed AVE OLGUIN NP [address] [place], [address], [place] [facility] 06/17/2020 15:04:05 Imaging Results None recorded. Procedure Notes None recorded. Medical Equipment None Reported. Allergies Allergen ID Allergen Name Allergen Category Reaction Reaction Severity Criticality Documentation Date Start Date Code Code System Note Provider Name and Address Organization Details Recorded Time 278462 Compazine medicatio n Not available Not available Not available 06/17/202019205 [address] OLGUIN NP [address] [place], [address], [place] [facility] 0 14:34:21 302350 Non-stero idal anti-infl ammatory agent (substanc e) medicatio n Not available Not available Not available 06/17/[address] OLGUIN NP [address], [place], [address], [place] [facility] 0 14:34:31 913648 Wellbutri n medicatio n Not available Not available Not available 06/17/[address] OLGUIN, LISA [address], [place], [address] , [place] [facility] 0 14:34:46 Medications Name Sig Start Date Stop Date Status Note LastModified by Organization Details LastModified Time [facility] ketamine 10% pain en APPLY 4-5 GRAMS [...] Available Not Available Not Available Dexcom G6 Panel Edge Sealer active Not Available Not Available Not Available [...] /min 82 /min 118/60 mm[Hg] Not Available [facility] 2 13:51:24 Date Recorded Respiratory rate Oxygen saturation Oxygen saturation in Arterial blood by Pulse oximetry Body temperature Heart rate Systolic And Diastolic Provider Name and Address Organization Details Last Updated DateTime 2 22 /min 93 % 93 % 98.4 [degF] 73 /min 136/82 mm[Hg] Not Available [facility] 2 08:52:26 Date Recorded Respiratory rate Oxygen saturation Oxygen saturation in Arterial blood by Pulse oximetry Body temperature Heart rate Systolic And Diastolic Provider Name and Address Organization Details Last Updated DateTime 1 22 /min 92 % 92 % 98.3 [degF] 88 /min 118/76 mm[Hg] Not Available [facility] 1 13:16:50 Date Recorded Heart rate Oxygen saturation Oxygen saturation in Arterial blood by Pulse oximetry Respiratory rate Body temperature Systolic And Diastolic Provider Name and Address Organization Details Last Updated DateTime 1 84 /min 97 % 97 % 18 /min 98.4 [degF] 132/78 mm[Hg] Not Available [facility] 1 10:02:01 Date Recorded Heart rate Oxygen saturation Oxygen saturation in Arterial blood by Pulse oximetry Body temperature Respiratory rate Systolic And Diastolic Provider Name and Address Organization Details Last Updated DateTime 1 84 /min 98 % 98 % 97.4 [degF] 22 /min 122/84 mm[Hg] Not Available [facility] 1 11:06:07 Social History Question Answer Notes LastModified by Organizat ion Details LastModified Time Tobacco Smoking Status Never Smoker BOGDAN REHMAN [facility] [place], [address], [place] [facility] 06/20/2020 11:40:47 What Is Your Code Status? Full Code [email or web address] Information not available 06/20/2020 Within The Past 12 Months, Has It Happened That The Food You Bought Just Didn't Last And You Didn't Have Money To Get More. No [email or web address] Information not available 06/20/2020 Within The Past 12 Months, Have You Worried That Your Food Would Run Out Before You Got Money To Buy More. No [email or web address] Information not available 06/20/2020 Fall Risk: Do You Feel Unsteady When Standing Or Walking? Yes [email or web address] Information not available 06/20/2020 We Know That How And When People Interact With Friends And Family Can Be Very Different From Person To Person. How Often Do You Have The Opportunity To See Or Talk To People That You Care About And Feel Close To? (Ex: Talking To Friends On The Phone Or Visiting Friends Or Family Or Going To Jewish Or Club Meetings) 3 Or 4 Times Per Week [email or web address] Information not available 06/20/2020 We Know From Many Of Our Patients That Covering All Of Their Costs Can Be Difficult At Times. This Can Cause Stress And Impact Health. In The Past Year, Have You Been Unable To Get Any Of The Following When It Was Really Needed? No [email or web address] Information not available 06/20/2020 What Is Your Housing Situation Today? I Have Housing [email or web address] Information not available 06/20/2020 Would You Like Help Connecting To Resources? None [email or web address] Information not available 06/20/2020 Sex: Unknown Functional Status None recorded. Mental Status None recorded. Family History Nothing Reported. Medical History Condition Response Coronary Artery Disease N COPD N Depression Y Diabetes Y Cancer N Stroke N Asthma Y High Cholesterol Y Pulmonary Embolism N Hypertension Y Kidney Disease N Past Encounters Encounter ID Performer Location Encounter Start Date Encounter Closed Date Diagnosis/Indication Diagnosis SNOMED-CT Code Diagnosis ICD10 Code Diagnosis IMO Codes Diagnosis Note [id number] AVE OLGUIN NP [facility] [address] [facility] [address] 06/17/2020 13:36:00 06/19/2020 01:01:28 Syncope 306321549 R55 Hypokalemia 50571518 E87 .6 Hypoxia 871220357 G47.34 [id number] BOGDAN REHMAN [facility] [address] [place] [address] 06/20/2020 11:22:36 06/21/2020 09:24:55 Pneumonia 932023042 J18.9 Hypokalemia 48887170 E87 .6 [id number] GABY APARICOI NP [facility] [address] [place] [address] 03/03/2021 13:10:48 03/06/2021 13:14:46 Hyperglycemia 79701366 R73.9 Type 1 [place] mellitus 36674316 E10.9 Pain of ri ght hip joint 0426082215 19675 M25.551 Neuropathy 844201439 G62 .9 Gastroesop hageal reflux disease 124717745 K21.9 Hypokalemia 91502560 E87 .6 [id number] DALIA URBINA NP [facility] [address] [place] [address] 03/06/2021 09:59:06 03/06/2021 14:11:50 Hypokalemia 67128158 E87.6 Type 1 [place] mellitus 71006844 E10.8 [id number] BOGDAN FORTUNE [facility] [address] [place] [address] 03/14/2021 10:59:36 03/15/2021 20:11:28 Sprain of interphalangeal joint of toe 85703773 S93.509A Hypokalemia 73410928 E87 .6 Gastroesop hageal reflux disease without esophagitis 092789169 K21.9 [id number] Melissa Guajardo NP [facility] [address] [place] [address] 11/04/2021 13:45:05 11/06/2021 19:57:33 Acute exacerbation of chronic obstructive pulmonary disease 232315589 J44.1 Cough 15130590 R05.1 Exposure t o communicable disease 023228790 Z20.822 [id number] BOGDAN Montiel [facility] [address] [place] [address] 11/06/2021 08:47:37 11/06/2021 19:57:43 Health Concerns Section Related Observation LastModified by Organization Detai ls LastModified Time None Recorded Concern Status LastModified by Organization Details LastModified Time None Recorded Advance Directives Directive None Recorded Payers Insurance Date Sequence Insurance Name Policy Number Policy Rodriguez Covered Member ID Rodriguez Member ID Guarantor Name 06/16/2020 1 *SELF PAY* Shubham Pappas [id number] Shubham Pappas 06/16/2020 1 [employer] (MEDICARE REPLACEMENT/A DVANTAGE - HMO) Shubham Pappas [id number] Shubham Pappas 11/06/2021 2 [place] [facility] Shubhma Pappas [id number] Shubham Pappas 11/04/2021 1 MEDICARE B[place] [employer] Shubham Pappas [id number] Shubham Pappas Notes Date Note Type Note [...] has helped with the pain briefly. GABY APARICIO, LISA [address] [place], [address], [place] [facility] 03/03/2021 15:32:31 03/06/2021 text/html This is a 45-year-old male that [facility], new to this provider. His medical history significant for depression, diabetes, asthma, hyperlipidemia, hypertension and he reports good. He is no longer following with his primary care provider over a disagreement. He is not yet established care with a new PCP. He does have an appointment with endocrinology today. He was seen earlier this week by [facility] for complaints of hip pain and possible [...] 03/03 which was the last day that [facility] was out to see him. He went there with complaints of shortness of breath, he had a normal CT scan of the chest. He is also given muscle relaxers for his thigh pain and reassured that he did not show evidence of a blood clot. Case management at [facility] is supposed to also follow up with the patient to try and help him establish care with a PCP. DALIA URBINA NP [address], [place], [address], [place] [facility] 03/06/2021 12:02:59 03/14/2021 text/html 45 y/o M with PMHx sig for [...] his foot. BOGDAN FORTUNE [address], [place], [address], [place] [facility] 03/14/2021 12:08:27 11/04/2021 text/html General HPI Template - DHReported by Patient 46 y/o M with PMHx sig for [...] tested. Melissa Guajardo NP [address], [place], [address], [place] [facility] 11/04/2021 15:58:34 11/06/2021 text/html General HPI Template - DHReported by Patient 46 yo male [facility] ?COPD exac/acute bronchCXR was (-) for aacute cardiopulm diseasept called yesterday saying he thought he might have PNAhe is seen this AMhe reports I saw my xray I have pneumonia we discuss resultswe discuss the pathophys of PNA vs bronchitishe then reports im doing better this AM he is taking his prednisone and zpakhe continues his maintenance inhalers - elliptaand albuterol nebs 3-4x/day nowno chest pain no sobno N V F Cno hx of intubation BOGDAN Montiel [address], [place], [address], [place] [facility] 11/06/2021 09:30:15
--- OUTSIDE RECORDS SUMMARY | 2025-06-28 16:19 | XMS_ITS | Clinical Summary ---
Author Organization [facility] Address [address] [place] [address] Phone Care Team Providers Care Senior Online Marketing Manager Name Role Phone Doretha Avilez MD Primary Care Provider + [phone] Allergies Active Allergy Reactions Criticality Noted Date [...] Heart failure with improved ejection fraction (HFimpEF) ([facility] V24, [facility] V28) 01/17/2025 Assessment & Plan (04/26/2025 7:00 PM EDT): The patient has heart failure with reduced ejection fraction. Etiology: Nonischemic Last ischemic work-up: 1. Nuclear stress test from February 2024 did not show any evidence of ischemia or infarct. Last documented LVEF: 1. Cardiac MRI from March 2024 showed an LVEF of 46%. 2. [facility] cardiology service note from 11/24/2024 states that the patient's echocardiogram done at [facility] showed an LVEF of 60% Current symptom classification: NYHA class 2 Guideline directed medical therapy: 1. Beta-blockers: None 2. ARNI / THO inhibitor / ARB: Lisinopril 40 mg orally daily 3. MRA: None 4. SGL2 inhibitor: Jardiance 10 mg orally daily Candidate for ICD or TABLE GAMES DUAL RATE SUPERVISOR: The patient is not a candidate for an ICD or TABLE GAMES DUAL RATE SUPERVISOR given LVEF Assessment and plan: The patient [...] being followed by different cardiology team at [facility]. It seems that they started the patient on an SGLT2 inhibitor (Jardiance) despite his history of diabetes mellitus type 1. According to the patient, this was done in consultation with his bulker in [place]. More recently, the patient has been having [...] he has a follow-up appointment with his bulker in [place] next week. I encouraged the patient to [...] encouraged the patient to discuss with his bulker whether he needs to undergo further evaluation to rule out the presence of hyperaldosteronism. In the meantime, I will arrange for the patient to complete a follow-up basic metabolic panel next week in order to make sure that his potassium level has remained in the normal range given that the patient is supplementing with [id number] potassium supplements. Orders: Basic metabolic panel; Future [...] care with the cardiology group at the [facility] cardiology service. Apparently, the patient was started on Jardiance 10 mg orally daily for treatment of his heart failure. As noted previously, the patient has diabetes mellitus type 1. The patient states that the initiation of Jardiance was done by the cardiology group at [facility] after consultation with the patient's new bulker at [facility] (Dr. Juliann Hayward). The patient states that he is fully aware of the increased risk of diabetes ketoacidosis with the use of Jardiance in a patient with diabetes type 1. The patient states that for this reason he was instructed by his bulker to check his ketone levels every day. On the other hand, the patient states that he is currently on lisinopril 20 mg orally daily and spironolactone 50 mg orally daily as part of the treatment of his heart failure. He is currently on these medications as recommended by his new cardiology team at [facility]. The patient states that with this regimen, his LVEF has improved as was apparently noted on a recent echocardiogram done at [facility]. Review of the [facility] cardiology service note from 11/24/2024 seems to verify this information given that the note states that the patient's echocardiogram done at [facility] showed an LVEF of 60%. Nevertheless, I do not have the report or the images of the echocardiogram at this point in order for me to review the study findings directly. During today's visit, we had an extensive conversation regarding the fact that the patient wishes to continue to see his new cardiology team at [facility] and he also wants to continue to [...] will also continue to follow with the [facility] cardiology service. I explained to the patient that his current medication regimen (lisinopril, Jardiance, and spironolactone) is being prescribed and managed by his cardiology team at [facility]. Therefore, I instructed the patient that he should continue to follow-up with the cardiology team at [facility] regarding the monitoring and management of these medications. The patient was also instructed to follow-up with his bulker at [facility] for continued management of his diabetes mellitus type 1 including the management of his diabetes medications. Encounters Date Type Department Care Team Description 04/26/2025 1:30 PM EDT Office Visit [facility] [address] [place] [address] Fco Ford MD Heart failure with improved ejection fraction (HFimpEF) [place] [place] [facility] [place] (Primary Dx) 04/26/2025 Telephone [facility] [address] [place] [address] Fco Ford MD 04/26/2025 Telephone [facility] [address] [place] [address] Fco Ford MD 04/05/2025 Telephone [facility] [address] [place] [address] Fco Ford MD from Last 3 Months Immunizations Immunization Administration Dates Next Due Tdap Tetanus diptheria acell ular pertussis (Boostrix; Adacel) 7yo and older 03/03/2025 Surgical History Surgery Date Site/Laterality Comments HERNIA REPAIR PROCEDURE: HISTORICAL HERNIA REPAIR/UMB; COMMENT: as infant Medical History Medical History Date Comments Diabetes ([facility] [place], [facility] [place] DX:Diabetes (HCC) HTN (hypertension) DX:HTN (hyper tension) Hypercholesteremia DX:Hyperchole steremia Neuropathy DX:Neuropathy;CO MMENT:diabetic Migraine DX:Migraine Depression DX:Depression History of herniated interve rtebral disc DX:History of herniated intervertebral disc Degenerative disc disease, lumbar DX:Degenerative disc disease, lumbar Diabetic neuropathy ([facility] [place], [facility] [place] DX:Diabetic neuropathy (HCC) Chronic low back pain DX:Chronic low back pain Migraine DX:Migraine Gastroparesis DX:Gastroparesis Depression DX:Depression Anxiety DX:Anxiety Hyperlipidemia LDL goal <100 DX: Hyperlipidemia LDL goal <100 HTN (hypertension), benign DX:HT N (hypertension), benign Asthma DX:Asthma Chronic painful diabetic kapil ropathy ([facility] [place], [facility] [place]) DX:Chronic painful diabetic neuropathy (HCC) Gastroenteritis DX:Gastroenterit is Hx of hernia repair DX:Hx of her qing repair Obesity hypoventilation synd ike ([facility] V24, [facility] V28) DX:Obesity hypoventilation syndrome (HCC) Obstructive sleep apnea DX:Obstr uctive sleep apnea Insomnia DX:Insomnia 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 ([facility] V24, [facility] V28) DX:Controlled ty pe 1 diabetes with neuropathy (HCC) GERD (gastroesophageal reflux disease) DX:GERD (gastroesophageal reflux disease) Lower extremity edema DX:Lower e xtremity edema 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 ([facility] V24, [facility] V28) DX:Type 1 diabet es mellitus with diabetic neuropathy (HCC) Morbid obesity with BMI of 6 0.0-69.9, adult ([facility] V24, [facility] V28) 05/08/2021 DX:Morbid obesity wit h BMI of 60.0-69.9, adult ([facility]) Charcot's joint of ankle, right 05/08/2021 DX:Charcot's joint of ankle, right Heart failure with preserved ejection fraction ([facility] V24, [facility] V28) 02/22/2021 DX:Heart failure w ith preserved ejection fraction (HCC); COMMENT: Hospitalized [facility] 09/2020 for hypoxic hypercarbic resp [...] Description 08/01/2025 2:30 PM EST Office Visit [facility] [address] [place] [address] Fco Ford MD [address] [place] [address] [address] [place] [id number] Health Maintenance Due Date Last Done Comments [...] mmol/L LAB CHEMISTRY METHOD 02/20/2025 9:13 PM [facility] Potassium 3.9 3.5 - 5.5 mmol/L LAB CHEMISTRY METHOD 02/20/2025 9:13 PM [facility] Comment:Hemolysis present Chloride 96 96 - 110 mmol/L LAB CHEMISTRY METHOD 02/20/2025 9:13 PM [facility] CO2 31 21 - 32 mmol/L LAB CHEMISTRY METHOD 02/20/2025 9:13 PM [facility] Anion Gap 5 3 - 11 LAB CHEMISTRY METHOD 02/20/2025 9:13 PM [facility] Glucose 148(H) 70 - 100 mg/dL LAB CHEMISTRY METHOD 02/20/2025 9:13 PM [facility] BUN 20 5 - 25 mg/dL LAB CHEMISTRY METHOD 02/20/2025 9:13 PM [facility] Creatinine 1.16 0.70 - 1.30 mg/dL LAB CHEMISTRY METHOD 02/20/2025 9:13 PM [facility] eGFR 77 >=60 mL/min/1. 73m2 LAB CHEMISTRY METHOD 02/20/2025 9:13 PM [facility] Comment:Calculation based on the Chronic Kidney Disease Epidemiology Collaboration (CKD-EPI) equation refit without adjustment for race. BUN/Creatinine Ratio 17.2 LAB CHEMISTRY METHOD 02/20/2025 9:13 PM [facility] Calcium 8.1(L) 8.5 - 10.5 mg/dL LAB CHEMISTRY METHOD 02/20/2025 9:13 PM [facility] Blood Venous blood specimen / Unknown Venipuncture / Unknown 02/20/2025 8:40 PM EDT 02/20/2025 8:48 PM EDT us Maegan Aguilar DO LAB BLOOD ORDERABLES Whit howell Result [facility] ([facility]) [facility] [address] [place] [address], [place] [phone] from Last 3 Months or Most Recently [...] currently active code status orders. Care Teams Senior Online Marketing Manager Relationship Specialty Start Date End Date Doretha Avilez MD [address] [place] [id number] PCP - General 11/20/22
== END 2025-04-15 13:24 | disposition home or self-care (01) ==
LOC: HO.RHESR 13:23
PROVIDERS: Visit Provider Student in an Organized Health Care Education/Training Program
DX: Z13.89 Encounter for screening for other disorder (principal)

== ENCOUNTER 2025-04-15 14:59 | Outpatient (AMB) | payer MEDICARE, MEDICAID, SELFPAY ==
--- OUTSIDE RECORDS SUMMARY | 2025-04-15 15:02 | XMS_ITS | Clinical Summary ---
Author Organization [facility] Address [address] [place] [address] Phone Care Team Providers Care Sourcing Consultant Name Role Phone Doretha Avilez MD Primary Care Provider + [phone] Allergies Active Allergy Reactions Criticality Noted Date Comments Acetaminophen-Codeine Seizures High 09/13/2024 Nsaids (Non-Steroidal Anti-Inflammatory Drug) Other 03/03/2025 Prochlorperazine Other 09/13/2024 Suicidal ideations Bupropion Hcl 01/17/2025 Medications lisinopriL (PRINIVIL,ZEST RIL) 20 mg tablet Take [...] 13-475 gram-kcal/100 g powder Take by mouth. Active insulin lispro 100 unit/mL injection Inject under the skin 3 (three) times a day before meals. -Administer within 15 minutes of a meal Active rosuvastatin (CRESTOR) 40 mg tablet TAKE ONE TABLET BY MOUTH ONCE DAILY 90 tablet 1 5 Active rosuvastatin (CRESTOR) 40 mg tablet TAKE ONE TABLET BY MOUTH ONCE DAILY 90 tablet 1 5 03/31/20 25 Discontinued Active Problems Problem Noted Date Diagnosed [...] care with the cardiology group at the [facility] cardiology service. Apparently, the patient was started on Jardiance 10 mg orally daily for treatment of his heart failure. As noted previously, the patient has diabetes mellitus type 1. The patient states that the initiation of Jardiance was done by the cardiology group at [facility] after consultation with the patient's new child care center assistant director at [facility] (Dr. Juliann Hayward). The patient states that he is fully aware of the increased risk of diabetes ketoacidosis with the use of Jardiance in a patient with diabetes type 1. The patient states that for this reason he was instructed by his child care center assistant director to check his ketone levels every day. On the other hand, the patient states that he is currently on lisinopril 20 mg orally daily and spironolactone 50 mg orally daily as part of the treatment of his heart failure. He is currently on these medications as recommended by his new cardiology team at [facility]. The patient states that with this regimen, his LVEF has improved as was apparently noted on a recent echocardiogram done at [facility]. Review of the [facility] cardiology service note from 11/24/2024 seems to verify this information given that the note states that the patient's echocardiogram done at [facility] showed an LVEF of 60%. Nevertheless, I do not have the report or the images of the echocardiogram at this point in order for me to review the study findings directly. During today's visit, we had an extensive conversation regarding the fact that the patient wishes to continue to see his new cardiology team at [facility] and he also wants to continue to [...] will also continue to follow with the [facility] cardiology service. I explained to the patient that his current medication regimen (lisinopril, Jardiance, and spironolactone) is being prescribed and managed by his cardiology team at [facility]. Therefore, I instructed the patient that he should continue to follow-up with the cardiology team at [facility] regarding the monitoring and management of these medications. The patient was also instructed to follow-up with his child care center assistant director at [facility] for continued management of his diabetes mellitus type 1 including the management of his diabetes medications. Encounters Date Type Department Care Team Description 04/05/2025 Telephone [facility] [address] [facility] [address] [place] [address] Fco Ford MD Med Refill 03/03/2025 8:45 PM EDT - 03/03/2025 10:37 PM EDT Emergency [facility] Emergency [address] [place] [phone] Mayda Catherine MD Laceration of left middle finger without foreign body without damage to nail, initial encounter (Primary Dx) Discharge Disposition: Home or Self Care 02/20/2025 8:16 PM EDT - 02/21/2025 12:17 AM EDT Emergency [facility] Emergency [address] [place] [address] Maegan Aguilar DO Hypoglycemia (Primary Dx) Discharge Disposition: Home or Self Care 01/17/2025 5:09 PM EDT - 01/18/2025 11:36 AM EDT Hospital Encounter [facility] [address] [place] [address] Cortez May MD Maduakor, Emmanuel C, MD Surendran, Anupama, MD Seralathan, Manikandan, MD Alam, Aroosa, MD Intractable vomiting (Primary Dx); Hyponatremia; Hypomagnesemia; Hypoglycemia; Near syncope Discharge Disposition: Left Against Medical Advice from Last 3 Months Immunizations Name Administration Dates Next Due Tdap Tetanus diptheria acell ular pertussis (Boostrix; Adacel) 7yo and older 03/03/2025 Surgical History Surgery Date Site/Laterality Comments HERNIA REPAIR PROCEDURE: HISTORICAL HERNIA REPAIR/UMB; COMMENT: as infant Medical History Medical History Date Comments Diabetes ([facility] V24, [facility] V28) DX:Diabetes (HCC) HTN (hypertension) DX:HTN (hyper tension) Hypercholesteremia DX:Hyperchole steremia Neuropathy DX:Neuropathy;CO MMENT:diabetic Migraine DX:Migraine Depression DX:Depression History of herniated interve rtebral disc DX:History of herniated intervertebral disc Degenerative disc disease, lumbar DX:Degenerative disc disease, lumbar Diabetic neuropathy ([facility] V24, [facility] V28) DX:Diabetic neuropathy (HCC) Chronic low back pain DX:Chronic low back pain Migraine DX:Migraine Gastroparesis DX:Gastroparesis Depression DX:Depression Anxiety DX:Anxiety Hyperlipidemia LDL goal <100 DX: Hyperlipidemia LDL goal <100 HTN (hypertension), benign DX:HT N (hypertension), benign Asthma DX:Asthma Chronic painful diabetic kapil ropathy ([facility] V24, [facility] V28) DX:Chronic painful diabetic neuropathy (HCC) Gastroenteritis DX:Gastroenterit is Hx of hernia repair DX:Hx of her qing repair Obesity hypoventilation synd ike ([facility] V24, [facility] V28) DX:Obesity hypoventilation syndrome (HCC) Obstructive sleep apnea DX:Obstr uctive sleep apnea Insomnia DX:Insomnia 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 ([facility] V24, [facility] V28) DX:Controlled ty pe 1 diabetes with neuropathy ([facility]) GERD (gastroesophageal reflux disease) DX:GERD (gastroesophageal reflux disease) Lower extremity edema DX:Lower e xtremity edema 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 ([facility] V24, [facility] V28) DX:Type 1 diabet es mellitus with diabetic neuropathy ([facility]) Morbid obesity with BMI of 6 0.0-69.9, adult ([facility] V24, [facility] V28) 05/08/2021 DX:Morbid obesity wit h BMI of 60.0-69.9, adult ([facility]) Charcot's joint of ankle, right 05/08/2021 DX:Charcot's joint of ankle, right Heart failure with preserved ejection fraction ([facility] V24, [facility] V28) 02/22/2021 DX:Heart failure w ith preserved ejection fraction (HCC); COMMENT: Hospitalized [facility] 09/2020 for hypoxic hypercarbic resp failure. [...] Description 04/26/2025 1:30 PM EDT Office Visit [facility] [address] [place] [address] Fco Ford MD [address] [place] [address] [address] [place] [address] Health Maintenance Due Date Last Done Comments [...] Depression Screening 08/25/2024 Influenza Vaccine (#1) 2025 3, 05/01/2022, 06/26/2021, Additional history exists Diabetes: Blood [...] (3 - Td or Tdap) 03/03/2035 03/03/2025, 03/03/2025, 12/15/2007 HIB Vaccines Aged Out No [...] HC REPAIR WOUND LEVEL 1 Routine 03/03/20 25 10:06 PM EDT RI REPAIR SPRFCL WOUNDS SIMPLE SCALP/NECK/AXILLAE/GENT /TRUNK/EXT <= [...] BLOOD Routine 01/17/2025 5: 19 PM EDT from Last 3 Months Results * RI REPAIR SPRFCL WOUNDS SIMPLE SCALP/NECK/AXILLAE/GENT/TRUNK/EXT <= 2.5 CM, HC REPAIR WOUND LEVEL 1 (03/03/2025 10:06 PM EDT) Mayda Quintero MD - 03/03/2025 10:06 PM EDT Mayda Catherine MD 03/03/2025 10:09 PM Laceration Repair Date/Time: 03/03/2025 10:06 PM Performed by: Mayda Catherine MD Authorized by: Mayda Catherine MD Consent: Consent obtained: Verbal Consent given by: Patient Risks discussed: Infection Alternatives discussed: No treatment [place] protocol: Patient identity confirmed: Verbally with patient [...] * ECG-Annotated (02/21/2025) Only the most recent of2 resultswithin the time period is included. us Provider Onbase ECG ORDERABLES Final Result * ECG 12 lead (02/20/2025 9:51 PM EDT) Only the most recent of3 resultswithin the time period is included. Ventricular Rate ECG 62 BPM GEMUSE Atrial Rate 62 BPM GEMUSE P-R Interval 158 ms GEMUSE QRS Duration 112 ms GEMUSE Q-T Interval 452 ms GEMUSE QTc 458 ms GEMUSE P Wave [place] 14 degrees GEMUSE R [place] 9 degrees GEMUSE T [place] 57 degrees GEMUSE ECG Interpretation Normal sinus rhythm When compared with ECG of 18-JAN-2025 00:00, No significant change was found Confirmed by TIFFANY NGUYEN ([id number]) on 02/21/2025 5:40:58 AM GEMUSE 02/20/2025 9:51 PM EDT 02/21/2025 5:40 AM EDT us Maegan Zhou Aguilar DO ECG ORDERABLES Final Res ult GEMUSE * (ABNORMAL) Urinalysis with reflex microscopic and culture (02/20/2025 9:48 PM EDT) Only the most recent of2 resultswithin the time period is included. Specific [place] Urine 1.014 1.003 - 1.030 LAB URINALYSIS - AUTOMATED METHOD 02/20/2025 10:28 PM [facility] pH, Urine 6.0 5.0 - 8.0 pH LAB URINALYSIS - AUTOMATED METHOD 02/20/2025 10:28 PM [facility] Leukocytes, Urine Negative Negative LAB URINALYSIS - AUTOMATED METHOD 02/20/2025 10:28 PM [facility] Nitrite, Urine Negative Negative LAB URINALYSIS - AUTOMATED METHOD 02/20/2025 10:28 PM [facility] Protein, Urine Negative <=Trace mg/dL LAB URINALYSIS - AUTOMATED METHOD 02/20/2025 10:28 PM [facility] Glucose, Urine >=1000(A) Negative mg/dL LAB URINALYSIS - AUTOMATED METHOD 02/20/2025 10:28 PM [facility] Ketones, Urine Negative Negative mg/dL LAB URINALYSIS - AUTOMATED METHOD 02/20/2025 10:28 PM [facility] Urobilinogen , Urine 0.2 0.2 - 1.0 mg/dL LAB URINALYSIS - AUTOMATED METHOD 02/20/2025 10:28 PM EDT [facility] Bilirubin, Urine Negative Negative LAB URINALYSIS - AUTOMATED METHOD 02/20/2025 10:28 PM EDT [facility] Blood, Urine Negative Negative LAB URINALYSIS - AUTOMATED METHOD 02/20/2025 10:28 PM EDT [facility] Urine Urine specimen obtained by clean catch procedure / Unknown Non-blood Collection / Unknown 02/20/2025 9:48 PM EDT 02/20/2025 10:20 PM EDT Maegan Aguilar DO LAB URINE ORDERABLES Whit l Result Performing Organization Address [facility]/ZIP Co de Phone Number [facility] [address] [place] [address], [place] [phone] * [place] urine culture tube (02/20/2025 9:48 PM EDT) Only the most recent of2 resultswithin the time period is included. Extra Tube Hold for add-ons. 02/21/2025 12:01 AM EDT [facility] Comment:Auto resulted. Urine Urine specimen obtained by clean catch procedure / Unknown Non-blood Collection / Unknown 02/20/2025 9:48 PM EDT 02/20/2025 10:20 PM EDT Maegan Matt Abelardo Jeff DO LAB URINE ORDERABLES Whit l Result Performing Organization Address [facility]/ZIP Co de Phone Number [facility] [address] [place] [address], [place] [phone] * (ABNORMAL) POCT Glucose, blood (02/20/2025 9:46 PM EDT) Only the most recent of8 resultswithin the time period is included. Glucose POCT 153(H) 70 - 100 mg/dL 02/20/2025 9:47 PM EDT [facility] Blood Capillary blood specimen / Unknown 02/20/2025 9:46 PM EDT 02/20/2025 9:48 PM EDT Maegan Aguilar LAB POINT OF CARE TEST DOCKED DEVICE UNSOLICITED RESULTS Final Result Performing Organization Address [facility] Co de Phone Number [facility] [address] [place] [address], [place] [phone] * Troponin I high sensitivity (02/20/2025 9:44 PM EDT) Only the most recent of4 resultswithin the time period is included. [facility] High Sensitivity Troponin I 8 <=79 ng/L LAB CHEMISTRY METHOD 02/20/2025 10:51 PM EDT [facility] Blood Venous blood specimen / Unknown Venipuncture / Unknown 02/20/2025 9:44 PM EDT 02/20/2025 10:21 PM EDT Narrative [facility] - 02/20/2025 10:51 PM EDT High levels of biotin in samples may falsely decrease hsTroponin values. Use caution when interpreting hsTroponin results in patients taking biotin who exhibit renal impairment (eGFR <60) or in patients taking more than 20 mg/day of biotin. us Maegan Aguilar DO LAB BLOOD ORDERABLES Whit l Result Performing Organization Address [facility]/ZIP Co de Phone Number [facility] [address] [place] [address], [place] [phone] * (ABNORMAL) CBC auto differential (02/20/2025 8:40 PM EDT) Only the most recent of4 resultswithin the time period is included. [facility] WBC 9.3 4.8 - 10.8 K/mcL LAB HEMETOLOGY METHOD 02/20/2025 9:09 PM [facility] RBC 4.30(L) 4.50 - 5.50 M/mcL LAB HEMETOLOGY METHOD 02/20/2025 9:09 PM [facility] Hemoglobin 13.3(L) 13.5 - 17.5 g/dL LAB HEMETOLOGY METHOD 02/20/2025 9:09 PM [facility] Hematocrit 40.9(L) 42.0 - 54.0 % LAB HEMETOLOGY METHOD 02/20/2025 9:09 PM [facility] MCV 95.3 79.0 - 98.0 FL LAB HEMETOLOGY METHOD 02/20/2025 9:09 PM [facility] MCH 31.0 27.0 - 32.0 pcg LAB HEMETOLOGY METHOD 02/20/2025 9:09 PM [facility] MCHC 32.5 32.0 - 37.0 g/dL LAB HEMETOLOGY METHOD 02/20/2025 9:09 PM [facility] RDW 12.6 11.0 - 15.0 % LAB HEMETOLOGY METHOD 02/20/2025 9:09 PM [facility] Platelets 180 130 - 400 K/mcL LAB HEMETOLOGY METHOD 02/20/2025 9:09 PM [facility] MPV 9.4 7.0 - 11.0 FL LAB HEMETOLOGY METHOD 02/20/2025 9:09 PM [facility] NRBC 0.0 <1.0 % LAB HEMETOLOGY METHOD 02/20/2025 9:09 PM [facility] NRBC Absolute 0.00 <0.10 K/mcL LAB HEMETOLOGY METHOD 02/20/2025 9:09 PM [facility] Neutrophils Relative 69.8 % LAB HEMETOLOGY METHOD 02/20/2025 9:09 PM [facility] Lymphocytes Relative 20.1 % LAB HEMETOLOGY METHOD 02/20/2025 9:09 PM [facility] Monocytes Relative 8.4 % LAB HEMETOLOGY METHOD 02/20/2025 9:09 PM [facility] Eosinophils Relative 1.0 % LAB HEMETOLOGY METHOD 02/20/2025 9:09 PM [facility] Basophils Relative 0.3 % LAB HEMETOLOGY METHOD 02/20/2025 9:09 PM [facility] Immature Granulocytes Relative 0.4 % LAB HEMETOLOGY METHOD 02/20/2025 9:09 PM [facility] Neutrophils Absolute 6.46 1.50 - 7.00 K/mcL LAB HEMETOLOGY METHOD 02/20/2025 9:09 PM [facility] Lymphocytes Absolute 1.86 1.00 - 5.00 K/mcL LAB HEMETOLOGY METHOD 02/20/2025 9:09 PM [facility] Monocytes Absolute 0.78 0.20 - 1.00 K/mcL LAB HEMETOLOGY METHOD 02/20/2025 9:09 PM [facility] Eosinophils Absolute 0.09 0.00 - 0.50 K/mcL LAB HEMETOLOGY METHOD 02/20/2025 9:09 PM [facility] Basophils Absolute 0.03 0.00 - 0.20 K/mcL LAB HEMETOLOGY METHOD 02/20/2025 9:09 PM [facility] Immature Granulocytes Absolute 0.04(H) 0.00 - 0.03 K/mcL LAB HEMETOLOGY METHOD 02/20/2025 9:09 PM [facility] Blood Venous blood specimen / Unknown Venipuncture / Unknown 02/20/2025 8:40 PM EDT 02/20/2025 8:48 PM EDT Maegan Aguilar LAB BLOOD ORDERABLES Whit l Result Performing Organization Address City/[facility]/ZIP Co de Phone Number [facility] [address] [place] [address], [place] [phone] * Magnesium (02/20/2025 8:40 PM EDT) Only the most recent of4 resultswithin the time period is included. Magnesium 1.9 1.9 - 2.6 mg/dL LAB CHEMISTRY METHOD 02/20/2025 9:13 PM EDT [facility] Comment:Hemolysis present Blood Venous blood specimen / Unknown Venipuncture / Unknown 02/20/2025 8:40 PM EDT 02/20/2025 8:48 PM EDT Maegan Aguilar LAB BLOOD ORDERABLES Whit l Result Performing Organization Address [facility] Co de Phone Number [facility] [address] [place] [address], [place] [phone] * (ABNORMAL) Basic metabolic panel (02/20/2025 8:40 PM EDT) Only the most recent of5 resultswithin the time period is included. Sodium 132(L) 133 - 145 mmol/L LAB CHEMISTRY METHOD 02/20/2025 9:13 PM EDT [facility] Potassium 3.9 3.5 - 5.5 mmol/L LAB CHEMISTRY METHOD 02/20/2025 9:13 PM EDT [facility] Comment:Hemolysis present Chloride 96 96 - 110 mmol/L LAB CHEMISTRY METHOD 02/20/2025 9:13 PM EDT [facility] CO2 31 21 - 32 mmol/L LAB CHEMISTRY METHOD 02/20/2025 9:13 PM EDT [facility] Anion Gap 5 3 - 11 LAB CHEMISTRY METHOD 02/20/2025 9:13 PM EDT [facility] Glucose 148(H) 70 - 100 mg/dL LAB CHEMISTRY METHOD 02/20/2025 9:13 PM EDT [facility] BUN 20 5 - 25 mg/dL LAB CHEMISTRY METHOD 02/20/2025 9:13 PM EDT [facility] Creatinine 1.16 0.70 - 1.30 mg/dL LAB CHEMISTRY METHOD 02/20/2025 9:13 PM EDT [facility] eGFR 77 >=60 mL/min/1. 73m2 LAB CHEMISTRY METHOD 02/20/2025 9:13 PM EDT [facility] Comment:Calculation based on the Chronic Kidney Disease Epidemiology Collaboration (CKD-EPI) equation refit without adjustment for race. BUN/Creatinine Ratio 17.2 LAB CHEMISTRY METHOD 02/20/2025 9:13 PM EDT [facility] Calcium 8.1(L) 8.5 - 10.5 mg/dL LAB CHEMISTRY METHOD 02/20/2025 9:13 PM EDT [facility] Blood Venous blood specimen / Unknown Venipuncture / Unknown 02/20/2025 8:40 PM EDT 02/20/2025 8:48 PM EDT us Maegan Aguilar DO LAB BLOOD ORDERABLES Whit l Result [facility] [address] [place] [address], * B-type natriuretic peptide (01/18/2025 8:09 AM EDT) BNP 27 <=100 pcg/mL LAB CHEMISTRY METHOD 01/18/2025 8:50 AM EDT [facility] Blood Venous blood specimen / Unknown Venipuncture / Unknown 01/18/2025 8:09 AM EDT 01/18/2025 8:15 AM EDT Cortez May MD LAB BLOOD ORDERABLES Final Result Performing Organization Address [facility]/ZIP Co de Phone Number [facility] [address] [place] [address], [place] [phone] * (ABNORMAL) Beta hydroxybutyrate (01/18/2025 2:52 AM EDT) Pathologist [facility] Beta-Hydroxyb utyrate 44.4(H) 0.2 - 2.8 mg/dL LAB CHEMISTRY METHOD 01/18/2025 3:26 AM EDT [facility] Blood Venous blood specimen / Unknown Venipuncture / Unknown 01/18/2025 2:52 AM EDT 01/18/2025 3:00 AM EDT us Catia MCFADDEN LAB BLOOD ORDERABLES Final R esult Performing Organization Address [facility] Co de Phone Number [facility] [address] [place] [address], [place] [phone] * Lactate (01/18/2025 2:52 AM EDT) [facility] Lactate 1.2 0.4 - 2.0 mmol/L LAB CHEMISTRY METHOD 01/18/2025 3:29 AM EDT [facility] Blood Venous blood specimen / Unknown Venipuncture / Unknown 01/18/2025 2:52 AM EDT 01/18/2025 3:00 AM EDT Catia MCFADDEN LAB BLOOD ORDERABLES Final R esult Performing Organization Address [facility]/ZIP Co de Phone Number [facility] [address] [place] [address], [place] [phone] * (ABNORMAL) Venous blood gas (01/18/2025 2:52 AM EDT) Pathologist [facility] pH, Yann 7.29(L) 7.32 - 7.42 pH 01/18/2025 3:05 AM EDT [facility] pCO2, Yann 39(L) 41 - 51 mmHg 01/18/2025 3:05 AM EDT [facility] pO2, Yann 47(H) 25 - 40 mmHg 01/18/2025 3:05 AM EDT [facility] HCO3, Venous 18.6(L) 22.0 - 26.0 mmol/L 01/18/2025 3:05 AM EDT [facility] O2 Sat, Yann 77.7 % 01/18/2025 3:05 AM EDT [facility] Base Excess, Yann -7.3(L) -2.0 - 2.0 mmol/L 01/18/2025 3:05 AM EDT [facility] Blood Venous blood specimen / Unknown Venipuncture / Unknown 01/18/2025 2:52 AM EDT 01/18/2025 3:00 AM EDT us Catia MCFADDEN LAB BLOOD ORDERABLES Final R esult [facility] [address] [place] [address], * (ABNORMAL) Acetaminophen level (01/18/2025 2:52 AM EDT) Acetaminophen Level 2.0(L) 10.0 - 30.0 mcg/mL LAB CHEMISTRY METHOD 01/18/2025 3:26 AM EDT [facility] Blood Venous blood specimen / Unknown Venipuncture / Unknown 01/18/2025 2:52 AM EDT 01/18/2025 3:00 AM EDT Catia MCFADDEN LAB BLOOD ORDERABLES Final R esult [facility] [address] [place] [address], [place] [phone] * (ABNORMAL) Salicylate level (01/18/2025 2:52 AM EDT) Salicylate Level <1.7(L) 2.0 - 29.0 mg/dL LAB CHEMISTRY METHOD 01/18/2025 3:23 AM EDT [facility] Blood Venous blood specimen / Unknown Venipuncture / Unknown 01/18/2025 2:52 AM EDT 01/18/2025 3:00 AM EDT Catia MCFADDEN LAB BLOOD ORDERABLES Final R esult Performing Organization Address City/[facility]/ZIP Co de Phone Number [facility] [address] [place] [address], [place] [phone] * Ethanol (01/18/2025 1:19 AM EDT) Ethanol Level 3 0 - 10 mg/dL LAB CHEMISTRY METHOD 01/18/2025 2:39 AM EDT [facility] Blood Venous blood specimen / Unknown Venipuncture / Unknown 01/18/2025 1:19 AM EDT 01/18/2025 1:26 AM EDT Catia MCFADDEN LAB BLOOD ORDERABLES Final R esult [facility] [address] [place] [address], [place] [phone] * Drug abuse screen expanded with reflex confirmation, urine (01/17/2025 8:41 PM EDT) Amphetamine Screen, Ur Negative Negative LAB CHEMISTRY METHOD 01/18/2025 7:18 AM EDT [facility] Comment:Certain OTC medicati ons containing ephedrine, phenylephrine, pseudoephedrine and phenylpropanolamine can cause false positive results. Barbiturate Screen, Ur Negative Negative LAB CHEMISTRY METHOD 01/18/2025 7:18 AM EDT [facility] Benzodiazepine Screen, Ur Negative Negative LAB CHEMISTRY METHOD 01/18/2025 7:18 AM EDT [facility] Cocaine Screen, Ur Negative Negative LAB CHEMISTRY METHOD 01/18/2025 7:18 AM EDT [facility] Opiate Screen, Ur Negative Negative LAB CHEMISTRY METHOD 01/18/2025 7:18 AM EDT [facility] Cannabinoid (THC) Screen, Ur Negative Negative LAB CHEMISTRY METHOD 01/18/2025 7:18 AM EDT [facility] Comment:Specimens from patie nts taking pantoprazole sodium (Protonix) have been shown to produce false positive results. Fentanyl, Ur Negative Negative LAB CHEMISTRY METHOD 01/18/2025 7:18 AM EDT [facility] Oxycodone Screen, Ur Negative Negative LAB CHEMISTRY METHOD 01/18/2025 7:18 AM EDT [facility] Urine Urine specimen from urethra / Unknown Non-blood Collection / Unknown 01/17/2025 8:41 PM EDT 01/17/2025 9:13 PM EDT Narrative [facility] - 01/18/2025 7:18 AM EDT Assay cutoffs: Amphetamines 1000 ng/mL Barbiturates 200 ng/mL Benzodiazepines 200 ng/mL Cocaine 300 ng/mL Fentanyl 1 ng/mL Opiates 300 ng/mL Oxycodone 100 ng/mL THC 50 ng/mL Semi-quantitative assay for screening purposes only. Unconfirmed screening result should not be used for non-medical purposes. *POSITIVE RESULTS ARE AUTOMATICALLY SENT FOR ALTERNATE METHOD CONFIRMATION* us Catia MCFADDEN LAB URINE ORDERABLES Final R esult [facility] [address] [place] [address], [place] [phone] * Electrolytes, urine (01/17/2025 8:41 PM EDT) Sodium, Ur 112 mmol/L LAB CHEMISTRY METHOD 01/17/2025 9:45 PM EDT [facility] Chloride, Ur 160 mmol/L LAB CHEMISTRY METHOD 01/17/2025 9:45 PM EDT [facility] Potassium, Ur 55.0 mmol/L LAB CHEMISTRY METHOD 01/17/2025 9:45 PM EDT [facility] Urine Urine specimen from urethra / Unknown Non-blood Collection / Unknown 01/17/2025 8:41 PM EDT 01/17/2025 9:13 PM EDT Catia MCFADDEN LAB URINE ORDERABLES Final R esult Performing Organization Address City/[facility]/ZIP Co de Phone Number [facility] [address] [place] [address], [place] [phone] * Creatinine, urine, random (01/17/2025 8:41 PM EDT) Creatinine, Urine 289.0 mg/dL LAB CHEMISTRY METHOD 01/17/2025 9:45 PM EDT [facility] Urine Urine specimen from urethra / Unknown Non-blood Collection / Unknown 01/17/2025 8:41 PM EDT 01/17/2025 9:13 PM EDT Catia MCFADDEN LAB URINE ORDERABLES Final R esult [facility] [address] [place] [address], [place] [phone] * Culture urine (01/17/2025 8:41 PM EDT) Culture, Urine 10,000-49,000 CFU/mL Mixed bacterial morphotypes present suggestive of possible contamination during collection. Suggest appropriate recollection if clinically indicated. 01/19/2025 11:16 AM EDT [facility] Urine Urine specimen obtained by clean catch procedure / Unknown Non-blood Collection / Unknown 01/17/2025 8:41 PM EDT 01/17/2025 10:03 PM EDT Catia MCFADDEN LAB MICROBIOLOGY - GENERAL O RDERABLES Final Result [facility] [address] [place] [address], [place] [phone] * XR Chest 1 View (01/17/2025 5:53 [...] Signed Date: 01/17/2025 20:27 ET Workstation ID: [id number] Transcribed By: Self Edit Transcribed Date: 01/17/2025 [...] Signed Date: 01/17/2025 20:27 ET Workstation ID: [id number] Transcribed By: Self Edit Transcribed Date: 01/17/2025 20:26 ET us Cortez May MD IMG XR PROCEDURES Final Res ult * (ABNORMAL) Comprehensive metabolic panel (01/17/2025 5:29 PM EDT) Sodium 122(L) 133 - 145 mmol/L LAB CHEMISTRY METHOD 01/17/2025 6:16 PM [facility] Potassium 3.9 3.5 - 5.5 mmol/L LAB CHEMISTRY METHOD 01/17/2025 6:16 PM [facility] Chloride 89(L) 96 - 110 mmol/L LAB CHEMISTRY METHOD 01/17/2025 6:16 PM [facility] CO2 25 21 - 32 mmol/L LAB CHEMISTRY METHOD 01/17/2025 6:16 PM [facility] Anion Gap 8 3 - 11 LAB CHEMISTRY METHOD 01/17/2025 6:16 PM [facility] Glucose 236(H) 70 - 100 mg/dL LAB CHEMISTRY METHOD 01/17/2025 6:16 PM [facility] BUN 18 5 - 25 mg/dL LAB CHEMISTRY METHOD 01/17/2025 6:16 PM [facility] Creatinine 0.95 0.70 - 1.30 mg/dL LAB CHEMISTRY METHOD 01/17/2025 6:16 PM [facility] eGFR 98 >=60 mL/min/1. 73m2 LAB CHEMISTRY METHOD 01/17/2025 6:16 PM [facility] Comment:Calculation based on the Chronic Kidney Disease Epidemiology Collaboration (CKD-EPI) equation refit without adjustment for race. BUN/Creatinine Ratio 18.9 LAB CHEMISTRY METHOD 01/17/2025 6:16 PM [facility] Calcium 8.6 8.5 - 10.5 mg/dL LAB CHEMISTRY METHOD 01/17/2025 6:16 PM [facility] AST (SGOT) 30 10 - 42 unit/L LAB CHEMISTRY METHOD 01/17/2025 6:16 PM EDT [facility] ALT (SGPT) 37 10 - 60 unit/L LAB CHEMISTRY METHOD 01/17/2025 6:16 PM EDT [facility] Alkaline Phosphatase 73 42 - 121 unit/L LAB CHEMISTRY METHOD 01/17/2025 6:16 PM EDT [facility] Total Protein 6.2 6.0 - 8.0 g/dL LAB CHEMISTRY METHOD 01/17/2025 6:16 PM EDT [facility] Albumin 3.3 3.2 - 5.0 g/dL LAB CHEMISTRY METHOD 01/17/2025 6:16 PM EDT [facility] Total Bilirubin 0.6 0.0 - 1.4 mg/dL LAB CHEMISTRY METHOD 01/17/2025 6:16 PM EDT [facility] Blood Venous blood specimen / Unknown Venipuncture / Unknown 01/17/2025 5:29 PM EDT 01/17/2025 5:47 PM EDT us Cortez May MD LAB BLOOD ORDERABLES Final Result [facility] [address] [place] [address], [place] [phone] from Last 3 Months Insurance MEDICARE MEDICAID [...] currently active code status orders. Care Teams Sourcing Consultant Relationship Specialty Start Date End Date Doretha Avilez MD [address] [place] [id number] PCP - General 11/20/22
--- OUTSIDE RECORDS SUMMARY | 2025-04-15 15:02 | XMS_ITS | Clinical Summary ---
Author Organization [facility] Address [address] [place] [address] Care Team Providers Care Carving Machine Operator Name Role Phone Unavailable Primary Care [...]
--- OUTSIDE RECORDS SUMMARY | 2025-04-15 15:02 | XMS_ITS | Continuity of Care Document ---
Author Organization [facility] Address [address] [place] [address] Phone [phone] Social History Type Date Description Comments Sex Male Sex Unknown Medical Devices Description No Information Available Encounters Description No Information Available Assessments Description No Information Available Plan of Treatment No Information Available Functional Status Description No Information Available Mental Status Description No Information Available Referrals Description No Information Available
--- OUTSIDE RECORDS SUMMARY | 2025-04-15 15:02 | XMS_ITS | Clinical Summary ---
Author Organization [facility] Address [address] [place] [address] Care Team Providers Care Patient Assessment Coordinator Name Role Phone Unavailable Primary Care Provider [...]
--- OUTSIDE RECORDS SUMMARY | 2025-04-15 15:02 | XMS_ITS | Clinical Summary ---
Author Organization [facility] Address [address] [address] Phone Care Team Providers Care Waste Salvager Name Role Phone Dorteha Pablo MD Primary Care Provider [phone] Allergies Active Allergy Reactions Criticality Noted Date [...] Office Visit [facility] [address] [phone] Romario Gifford MD [address] [phone] Health Maintenance Due Date Last [...] PCV21) 2025 06/21/2015, 08/27/2006, 10/28/2005 [place] Care Teams Waste Salvager Relationship Specialty Start Date End Date Doretha Pablo MD [address], [facility] [address] [place] [address] PCP - General Internal Medicine 08/28/23
--- OUTSIDE RECORDS SUMMARY | 2025-04-15 15:02 | XMS_ITS | Clinical Summary ---
Author Organization [facility] Address [address] [place] [address] Phone Care Team Providers Care Vibrator Equipment Tester Name Role Phone Doretha Pablo MD Primary Care Provider [phone] Encounters Date Type Department Care Team Description 04/05/2025 Transcribe [facility] [address] [place] [address] Doretha Pablo MD from Last 3 Months Social History Tobacco Use Types Packs/Day Years Used Date Smoking Tobacco: Never Assessed Education Answer Date Recorded Are you interested in more education? Not on savannah e 04/06/2025 Are you concerned about learning? Not on file 04/06/2025 No 04/06/2025 No 04/06/2025 Digital Access Answer Date Recorded No 04/06/2025 No 04/06/2025 Reliable internet access at home? Not on file 04/06/2025 Device with a working camera? Not on file Comments Unknown Sex and Gender Information Value Date Recorded Sex Assigned at Choose not to disclose 12:48 PM EDT Legal Sex Male 9:28 PM EDT Gender Identity Choose not to disclose 12:48 PM EDT Sexual Orientation Choose not to disclose 2024 12:48 PM EDT Plan of Treatment Upcoming Encounters Date Type Department Care Team (Late st Contact Info) Description 05/10/2025 2:00 PM EDT Office [place] [facility]le [facility] [address] [place] [address] Raz Dickerson PA-C [address] [facility] [id number] [place] [address] [email or web address] Health Maintenance Due Date Last Done Comments Adult Td,Tdap Booster 1975 LIPID PANEL 1975 DEPRESSION SCREENING 1987 SMOKING Hx and SMOKELESS TOB ACCO SCREENING 1988 HEPATITIS C SCREENING 1993 HIV ONE-TIME SCREENING (18-6 5 YEARS) 1993 COLOGUARD 2020 COLONOSCOPY 2020 COLORECTAL CANCER SCREENING 2020 FIT TEST 2020 FOBT 2020 SIGMOIDOSCOPY 2020 VIRTUAL COLONOSCOPY 2020 COVID-19 VACCINE (2023-2 5 season) 2024 HEPATITIS A VACCINES Aged Out No long er eligible based on patient's age to complete this topic HIB VACCINES Aged Out No longer eligi ble based on patient's age to complete this topic MENINGOCOCCAL VACCINES (ACWY) Aged Out No longer eligible based on patient's age to complete this topic MENINGOCOCCAL VACCINES (B) Aged Out N o longer eligible based on patient's age to complete this topic PNEUMOCOCCAL VACCINES (0-49 years) Aged Out No longer eligible based on patient's age to complete this topic Medical Devices Not on file Insurance [place] [id number] [facility] MEDICARE PART A & B MEDICARE PART A & B HEALTH MEDICARE PART A & B MEDICARE PART A & B MEDICARE PART A & B MEDICARE PART A & B HEALTH MEDICARE PART A & B [facility] MEDICARE PART A & B [facility] Care Teams Vibrator Equipment Tester Relationship Specialty Start Date End Date Doretha Pablo MD [address] [place] [address] [place] [address] PCP - General Internal Medicine 03/18/25 Additional Source Comments The information contained in this document represents components of the legal health record. It is not the complete legal health record.[facility]
--- OUTSIDE RECORDS SUMMARY | 2025-04-15 15:02 | XMS_ITS | Clinical Summary ---
Author Organization [facility] Address [address] [place] [address] Care Team Providers Care House Steward/Stewardess Name Role Phone Unavailable Primary Care Provider [...]
--- NOTE | 2025-04-15 15:37 | A.OFFVIS_ITS ---
Vital Signs 04/15/25 15:38 Height 6 ft Weight 237 lb 3.478 oz BMI 32.2 BP 128/78 Blood Pressure Location Lt brachial Position Sitting Pulse 77 Pulse Source Pulse Oximeter Pulse Oximetry (%) 98 Oxygen Delivery Method Room Air Intake Visit Reasons: US Durolane injection Intake Note: Patient is here for US Durolane injection. Allergies codeine Allergy (Unknown, Verified 04/15/25 15:42) itching ibuprofen (IBUPROFEN) Allergy (Unknown, Verified 04/15/25 15:42) HIVES ketorolac Allergy (Unknown, Verified 04/15/25 15:42) swelling sumatriptan (From IMITREX) Allergy (Unknown, Verified 04/15/25 15:42) TACHYCARDIA bupropion (From Wellbutrin) Adverse Reaction (Severe, Verified 04/15/25 15:42) suicide thoughts prochlorperazine (From Compazine) Adverse Reaction (Unknown, Verified 04/15/25 15:42) Unknown Medication List - Last Reconciled 04/15/25 by Gosia Graff MD [Ankle support brace As directed] celecoxib 200 mg PO BID empagliflozin (Jardiance) 10 mg PO DAILY ferrous sulfate 325 mg PO DAILY flu vac qs 2019(4 yr up)CD(PF) mL IM fluticasone furoate 100 mcg/actuation (Arnuity Ellipta) 1 inh inhalation DAILY PRN fluticasone propionate 50 mcg/actuation (Flonase Allergy Relief) 1 spray intranasal Q12H furosemide 20 mg PO DAILY PRN furosemide 20 mg PO DAILY hyaluronate sodium, stabilized (Durolane) 60 mg (3 mL) intra-articular ONCE insulin lispro 1 sliding scale dose subcut USEASDIRECTD insulin lispro (Humalog KwikPen U-200 Insulin) subcut insulin syringe-needle U-100 As directed ipratropium-albuterol 0.5 mg-3 mg(2.5 mg base)/3 mL 3 mL inhalation QID 30 days lansoprazole 30 mg PO DAILY losartan 50 mg PO BID metoprolol succinate ER 25 mg PO DAILY pregabalin 150 mg PO TID pseudoephedrine HCl ER (Sudafed 12 Hour) 120 mg PO Q12H rosuvastatin 40 mg PO DAILY sacubitril-valsartan 24-26 mg (Entresto) 1 tab PO BID spironolactone 50 mg PO DAILY Ventolin HFA 90 mcg/actuation (albuterol sulfate) 2 puffs inhalation Q4-6H PRN NS HPI Comments Details: Patient is a 49-year-old male with hypertension, type I insulin-dependent diabetes and hyperlipidemia here to follow up osteoarthritis Interval History: Patient last seen 01/21/25 with me - On Celebrex 200mg bid (from ortho) - Received US durolane injection of the right ankle Today - Here for US injection of the left ankle Rheumatologic History: Established care 05/2024 for management of osteoarthritis primarily involving his ankles. Unfortunately he had failed duloxetine, gabapentin, pregabalin, tramadol, Tylenol. Currently gets intra-articular steroids from ortho. Refuses to get ankle replacement surgery out of fear of infection complications. He was diagnosed with type 1 diabetes in his early 20s and this has been complicated by diabetic neuropathy and Charcot joint of his feet. Subsequently he was also morbidly obese and had chronic pain involving his bilateral ankles. Patient states that he has lost over 100 lb over the last couple of years which has improved his ankle pain but it still persists. He currently follows with Orthopedics who do ankle injections every 3 months (steroid injections) and who also prescribe him Celebrex to help with the pain. Patient states he takes 200 mg twice a day and this helps his pain 80%. He does try to keep active and and also walks and is actively trying to lose more weight. He was seen by his apprentice jockey because of concern for his chronic Celebrex use especially in the setting of coronary artery disease and type 1 diabetes. He denies involvement of any other joints. Previously had knee pain but got gel injections and has not had any issues in the knees since then. 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 Well appearing and in no apparent painful distress Ankles * Left ankle: Decreased ROM to left ankle with TP of the tibiotalar joint Vital Signs: Last Vital Signs Pulse 77 04/15/25 15:38 BP 128/78 04/15/25 15:38 Pulse Ox 98 04/15/25 15:38 Oxygen Delivery Method Room Air 04/15/25 15:38 BMI result Body Mass Index 32.2 Office Procedures AMB Joint Injection/Aspiration Joint Injection/Aspiration Details: Date: 04/15/25 Study Type: Limited Ultrasound with Guidance of needle placement Indication: Joint pain Study Site: left ankle Equipment: Barton US Brief History: Patient with bilateral ankle osteoarthritis with failed steroid injections now requesting Durolane injections XR Images reviewed Findings: Orthogonal views of the tibiotalr joint was obtained Procedure: The tibiotalar joint was identified in anterior-posterior view Procedure was explained to the patient and informed consent was obtained. ? Risks associated with the procedure were discussed with the patient including but not limited to bleeding, infection, drug reactions and reactions to the topical anesthetic. Patient made aware of signs to look out for infectious complications. The area of interest was identified using US. ?This was subsequently cleaned with chlorhexidine x 2. ? The area was then anesthetized using ethyl chloride spray. 3cc Durolane was injected without issue. ?Minimal to no bleeding. ?Patient tolerated procedure. Impressions: Primary osteoarthritis of the left ankle status post Durolane injection Primary Site: right ankle Prep: site was prepped using aseptic technique and ethochloride spray was applied Injected: other Approach Used: anterior Procedure: The patient tolerated the procedure well Coding 46995 - Medium joint Additional procedure code (CPT) needed (48672: (Ultrasound guidance for needle placement, imaging supervision and interpretation) ) Office Meds Durolane 60 mg/3 mL intra-articular syringe Performing Provider: Gosia Graff MD Performing Location: [facility] Administered by: Gosia Graff MD on 04/15/25 16:38 Dose Route Admin Location Dispensed Lot Number Expiration Date NDC Local Driver 60 mg intra-articular left ankle 3 mL [id number] 05/24/27 [address]-0 [employer] Total Dispensed Waste 3 mL 0 % Results Reviewed Results Reviewed: XR Left Ankle 03/21/22 FINDINGS: Bone alignment is normal. No fracture or dislocation is seen. The ankle mortise is normal. There is a small calcaneal spur at the Achilles tendon insertion. Soft tissues are otherwise normal. IMPRESSION: Normal left ankle. Assessment & Plan Assessment & Plan (1) Osteoarthritis of left ankle: Code(s): M19.072 - Primary osteoarthritis, left ankle and foot Category: Medical Qualifiers: Osteoarthritis type: primary Qualified Code(s): M19.072 - Primary osteoarthritis, left ankle and foot Plan: #Left ankle OA Patient with left ankle OA here today for Durolane injection Plan - s/p left ankle durolane injection Plan Procedure only Orders: Orders AMB Joint Injection/Aspiration Today M19.072 - Primary osteoarthritis, left a nkle and foot Coding Level of Care Code Procedure Only Diagnoses Primary osteoarthritis of left ankle M19.072 Osteoarthritis type: primary CPT Codes Coding - 59911 Medium joint: 85380 - Medium joint ([id number])
[2025-04-15 15:38] VITALS: BP 128/78; PULSE 77; O2SAT 98; BMI 32.2
== END 2025-04-15 16:42 | disposition home or self-care (01) ==
LOC: HO.RHES 15:00
PROVIDERS: PCP Internal Medicine; Visit Provider Student in an Organized Health Care Education/Training Program
DX: M19.072 Primary osteoarthritis, left ankle and foot (principal)
CPT/HCPCS: 20605; 76942

== ENCOUNTER → 2025-04-15 14:59 | Outpatient (BNVA) | payer MEDICARE, MEDICAID, SELFPAY | PROVIDERS: PCP Internal Medicine; Visit Provider Student in an Organized Health Care Education/Training Program | DX: M19.072 Primary osteoarthritis, left ankle and foot (principal); M21.962 Unspecified acquired deformity of left lower leg; E10.9 Type 1 diabetes mellitus without complications | CPT/HCPCS: 20605; J7318 ==

== ENCOUNTER 2025-05-19 12:05 | Outpatient (AMB) | payer MEDICARE, MEDICAID, SELFPAY ==
--- NOTE | 2025-05-19 12:41 | A.OFFVIS_ITS ---
Vital Signs 05/19/25 12:47 Height 6 ft Weight 237 lb 7.005 oz BMI 32.2 BP 140/92 H Blood Pressure Location Lt brachial Position Sitting Pulse 77 Pulse Source Pulse Oximeter Pulse Oximetry (%) 94 Oxygen Delivery Method Room Air Intake Visit Reasons: Follow up Intake Note: Patient presents for Osteoarthritis of left ankle follow up. Allergies codeine Allergy (Unknown, Verified 05/19/25 12:47) itching ibuprofen (IBUPROFEN) Allergy (Unknown, Verified 05/19/25 12:47) HIVES ketorolac Allergy (Unknown, Verified 05/19/25 12:47) swelling sumatriptan (From IMITREX) Allergy (Unknown, Verified 05/19/25 12:47) TACHYCARDIA bupropion (From Wellbutrin) Adverse Reaction (Severe, Verified 05/19/25 12:47) suicide thoughts prochlorperazine (From Compazine) Adverse Reaction (Unknown, Verified 05/19/25 12:47) Unknown HPI Comments Details: Patient is a 49-year-old male with hypertension, type I insulin-dependent diabetes and hyperlipidemia here to follow up osteoarthritis Interval History: Patient last seen 04/15/25 with sd - On Celebrex 200mg bid (from ortho) - Received US durolane injection of the left ankle Today - On Celebrex 200mg bid (from ortho) - 50-60% improvement in left ankle after durolane injection, interested in continuing - Asked for other pain options - Also asked for treatment options for Raynauds Rheumatologic History: Established care 05/2024 for management of osteoarthritis primarily involving his ankles. Unfortunately he had failed duloxetine, gabapentin, pregabalin, tramadol, Tylenol. Currently gets intra-articular steroids from ortho. Refuses to get ankle replacement surgery out of fear of infection complications. He was diagnosed with type 1 diabetes in his early 20s and this has been complicated by diabetic neuropathy and Charcot joint of his feet. Subsequently he was also morbidly obese and had chronic pain involving his bilateral ankles. Patient states that he has lost over 100 lb over the last couple of years which has improved his ankle pain but it still persists. He currently follows with Orthopedics who do ankle injections every 3 months (steroid injections) and who also prescribe him Celebrex to help with the pain. Patient states he takes 200 mg twice a day and this helps his pain 80%. He does try to keep active and and also walks and is actively trying to lose more weight. He was seen by his press operator carbon products because of concern for his chronic Celebrex use especially in the setting of coronary artery disease and type 1 diabetes. He denies involvement of any other joints. Previously had knee pain but got gel injections and has not had any issues in the knees since then. Current Rheumatology Medication(s): Celebrex 200mg bid (prescribed by ortho) [facility] Medical History Allergic rhinitis FPC (current) use of non-steroidal anti-inflammatories (nsaid) Obesity (BMI 35.0-39.9 without comorbidity) Bronchitis COPD (chronic obstructive pulmonary disease) Restrictive lung disease SABRINA (obstructive sleep apnea) Morbid obesity Social History Household Members: Significant Other Housing: House Alcohol intake: never Patient Tobacco Use Status: Never used Tobacco Current occupational status: disabled Current occupation: Lt handed Review of Systems Const Details: Review of Systems Constitutional: Denies fever, chills, weight loss ENT: Denies vision changes, eye pain or eye redness, dental caries, dry mouth GI: Denies nausea, vomiting, diarrhea, abdominal pain, change in BM Pulm: Denies SOB, ELDER, hemoptysis, wheezing Cards: Denies chest pain, palpitations Skin: Denies rash, nail changes, photosensitivity, LIFE SKILLS INSTRUCTOR: Denies headaches, weakness, paresthesias, recurrent falls MSK: as per HPI All other systems reviewed and are unremarkable except noted above Physical Exam Exam Exam: Vital signs reviewed Physical Examination CONSTITUITIONAL Patient alert and cooperative. Well appearing and in no apparent painful distress MSK Hands * Right Hand: Able to make a fist. No swelling or tenderness to palpation of the MCPs, PIPs or DIPs. * Left Hand: Able to make a fist. No swelling or tenderness to palpation of the MCPs, PIPs or DIPs. * Herbedens nodes noted bilaterally, hands cool to the touch Wrists * Right Wrist: Full ROM to flexion and extension. No swelling or TTP * Left Wrist: Full ROM to flexion and extension. No swelling or TTP Elbows * Right Elbow: Full ROM. No swelling or TTP. No TTP of the medial epicondyle. No TTP of the lateral epicondyle * Left Elbow: Full ROM. No swelling or TTP. No TTP of the medial epicondyle. No TTP of the lateral epicondyle Shoulders * Right shoulder: Full ROM. No swelling noted. No TTP of the AC joint. No TTP of the subacromial bursa. No TTP of the posterior shoulder * Left shoulder: Full ROM. No swelling noted. No TTP of the AC joint. No TTP of the subacromial bursa. No TTP of the posterior shoulder Knees * Right knee: Full ROM. No swelling noted. No TTP of the knee joint line. No TTP of pes anserine bursa * Left knee: Full ROM. No swelling noted. No TTP of the knee joint line. No TTP of pes anserine bursa. * Crepitations felt bilaterally Ankles * Right ankle: Swollen with decreased ROM, almost fixed. Very TTP * Left ankle: Decreased ROM Feet * Right foot: Negative squeeze test * Left foot: Negative squeeze test Tender points? * No tenderness to palpation of the bilateral trapezius, supraspinatus, anterior costochondral junctions, bilateral suboccipital muscle insertions SKIN No rashes Normal nailfold capilloscopy Vital Signs: Last Vital Signs Pulse 77 05/19/25 12:47 BP 140/92 H 05/19/25 12:47 Pulse Ox 94 05/19/25 12:47 Oxygen Delivery Method Room Air 05/19/25 12:47 BMI result Body Mass Index 32.2 Results Reviewed Results Reviewed: XR Left Ankle 03/21/22 FINDINGS: Bone alignment is normal. No fracture or dislocation is seen. The ankle mortise is normal. There is a small calcaneal spur at the Achilles tendon insertion. Soft tissues are otherwise normal. IMPRESSION: Normal left ankle. Assessment & Plan Assessment & Plan (1) Osteoarthritis of ankles, bilateral: Code(s): M19.071 - Primary osteoarthritis, right ankle and foot; M19.072 - Primary osteoarthritis, left ankle and foot Qualifiers: Osteoarthritis type: primary Qualified Code(s): M19.071 - Primary osteoarthritis, right ankle and foot; M19.072 - Primary osteoarthritis, left ankle and foot Plan: #Bilateral ankle OA Patient is a 49-year-old male with polyarticular OA specifically bilateral ankle OA. Unfortunately at this time he has not responded to any other conservative managements regarding his OA. Currently on Celebrex 1 tablet twice a day which patient tries at times to decrease to 1 tablet daily. Did not get any efficacy from Durolane injection to the right ankle but followed up with the surgeon out in [facility] who said that the right ankle is so far gone that not even replacement is an option at this time. He did get about 50-60% efficacy from Durolane injection for the left ankle so we will continue with every 4 month Durolane injection in the left ankle. Given that the viscosity of gel 1 is higher maybe gel 1 May be a good alternative we will try and see if insurance will pay for this Plan - CBC, CMP, ESR, CRP every 3 months - RTC July for ankle injetion (left) - Start PA for Gel 1 injections - Continue celebrex 200mg bid - Parafin wax for the hands (2) Raynaud's phenomenon: Code(s): I73.00 - Raynaud's syndrome without gangrene Qualifiers: Raynaud?s-associated gangrene presence: without gangrene Qualified Code(s): I73.00 - Raynaud's syndrome without gangrene Plan: #Raynaud's Phenomenon Patient with faint Raynaud's phenomenon and normal nail fold capillaroscopy. Advised that since he does not have any digital gangrene or ulcers that the treatment is conservative with keeping his core temperature warm including his hands warm. If he does develop gangrene or ulcers we will pursue vasodilators however the side effects of vasodilators include hypotension and dizziness (3) FPC (current) use of non-steroidal anti-inflammatories (nsaid): Code(s): Z79.1 - long term acute care registered nurse (current) use of non-steroidal anti-inflammatories (NSAID) Category: Medical Plan: #Long-term Use of NSAIDs Discussed with patient the benefits and risk of NSAIDs for managing this patient's osteoarthritis Benefits include: - Reduced the pain, improved mobility, and increased participation in activities Risks include: - GI upset, potential also worsening or formation (especially in patients > 65 years old) - renal impairment especially with concomitant type 1 diabetes Recommended using proton pump inhibitors (PPIs) for the duration of NSAID use to reduce the risk of gastric ulcers Plan I spent 30 minutes reviewing the record and labs, seeing the patient, discussing the treatment plan and documenting in the medical record ? Coding Level of Care Code Est Pt Level 4 (51525) Diagnoses Primary osteoarthritis of both ankles M19.071; M19.072 Osteoarthritis type: primary Raynaud's phenomenon without gangrene I73.00 Raynaud?s-associated gangrene presence: without gangrene long term acute care registered nurse (current) use of non-steroidal anti-inflammatories (nsaid) Z79.1
[2025-05-19 12:47] VITALS: BP 140/92; PULSE 77; O2SAT 94; BMI 32.2
--- OUTSIDE RECORDS SUMMARY | 2025-05-19 17:04 | XMS_ITS | Clinical Summary ---
Author Organization [facility] Address [address] [place] [address] Care Team Providers Care Tariff Supervisor Name Role Phone Unavailable Primary Care Provider [...]
--- OUTSIDE RECORDS SUMMARY | 2025-05-19 17:04 | XMS_ITS | Clinical Summary ---
Author Organization [facility] Address [address] [address] Phone Care Team Providers Care Plywood Patcher Name Role Phone Doretha Pablo MD Primary Care Provider [phone] Allergies Active Allergy Reactions Criticality Noted Date [...] Office Visit [facility] [address] [phone] Romario Gifford MD [address] [phone] Health Maintenance Due Date Last [...] PCV21) 2025 06/21/2015, 08/27/2006, 10/28/2005 [place] Care Teams Plywood Patcher Relationship Specialty Start Date End Date Doretha Pablo MD [address], [facility] [address] [place] [address] PCP - General Internal Medicine 08/28/23
--- OUTSIDE RECORDS SUMMARY | 2025-05-19 17:04 | XMS_ITS | Clinical Summary ---
Author Organization [facility] Address [address] [place] [address] Care Team Providers Care Bindery Machine Setter/Set Up Operator Name Role Phone Unavailable Primary Care [...] series) 1994 COVID-19 Vaccine (2023-2 5 season) 2025 Pneumococcal Vaccine: Pediat pratik (0-5 Years) and At-Risk Patients (6 to 49 Years) Aged Out No longer eligible b ased on patient's age to complete this topic
--- OUTSIDE RECORDS SUMMARY | 2025-05-19 17:04 | XMS_ITS | Clinical Summary ---
Author Organization [facility] Address [address] [place] [address] Care Team Providers Care Music Orchestrator Name Role Phone Unavailable Primary Care Provider [...]
--- OUTSIDE RECORDS SUMMARY | 2025-05-19 17:04 | XMS_ITS | Clinical Summary ---
Author Organization [facility] Address [address] [place] [address] Phone Care Team Providers Care Swing Frame Grinder Operator Name Role Phone Doretha Pablo MD Primary Care Provider [phone] Allergies Active Allergy Reactions Criticality Noted Date Comments Acetaminophen 05/10/2025 Other Reaction(s): affects Blood sugar reading, r/t being a diabetic. Acetaminophen-Codeine Seizures High 09/13/2024 Bupropion Other (See Comments) 12/19/2013 Other Reaction(s): suicidal Other reaction(s): Other (See Comments) suicidal Codeine 03/12/2022 Other Reaction(s): terrible itching Patient has tolerated Fentanyl and Morphine in the past. Ibuprofen Anaphylaxis,Other (See Comments) High 12/19/2013 Other Reaction(s): can't take- harmful to my kidneys Ketorolac Anaphylaxis High 12/19/2013 Other Reaction(s): can't take-harmful to my kidneys Nsaids (Non-Steroidal Anti-Inflammatory Drug) Other (See Comments) 03/12/2022 Other Reaction(s): can't take-harmful to my kidneys Prochlorperazine Other (See Comments) High 4 Other Reaction(s): severe muscle spasm dystonic Suicidal ideations Sumatriptan Palpitations Low 12/19/2013 Other Reaction(s): unknown reaction Tramadol 09/10/2015 Medications DEXCOM G7 SENSOR Caryn Dexcom G7 Sensor, See Instructions, # 3 each, Refills 11, Tot. Refills 11, Maintenance, Use as directed for Diabetes Control. change every 10 days. 90 days supplies, 12/15/24 3:25:00 PM EDT, Supply, 183, cm, 12/15/24 14:39:00 EDT, Height, 105.5, kg, 12/15/24 14:39:00 EDT, Dry Weight 12/16/19 25 Active VENTOLIN HFA 90 mcg/actuation inhaler 04/26/20 25 Active celecoxib (CELEBREX) 200 MG capsule Take 200 mg by mouth 2 (two) times a day. Active ZEGALOGUE SYRINGE 0.6 mg/0.6 mL subcutaneous injection syringe See Instructions, INJECT 0.6MG SUBCUTANEOUSLY ONCE. MAY REPEAT ONCE IN 15 MINUTES. USE FOR SEVERE HYPOGLYCEMIA (BG LESS THAN 50 AND [ADTDIR], # 1.2 mL, 2 Refills, Maintenance, 04/05/25 1:01:00 PM EDT, [facility], 183, cm, 03/16/25 13:29:00 EDT, Height, 109, kg, 03/16/25 13:29:00 EDT, Dry Weight 04/05/20 25 Active empagliflozin (JARDIANCE) 10 mg tablet Take 10 mg by mouth. 07/13/20 24 Active erythromycin base 250 MG tablet Take 125 mg by mouth. 12/24/19 25 Active glucagon (GVOKE HYPOPEN 1-PACK) 1 mg/0.2 mL subcutaneous auto-injector See Instructions, INJECT 1MG SUBCUTANEOUSLY ONCE ONLY FOR EMERGENCY/ UNCONSCIOUS. TO BE GIVEN BY FAMILY MEMBER. CALL 911 IF ADMINISTERING, # 0.4 mL, 6 Refills, Maintenance, 02/05/25 10:20:00 AM EDT, [facility], 183, cm, 12/23/24 8:32:00 EDT, Height, 105.5, kg, 12/15/24 14:39:00 EDT, Dry Weight 02/06/20 25 Active BASAGLAR KWIKPEN U-100 INSULIN 100 unit/mL (3 mL) InPn injection pen See Instructions, INJECT 60 UNITS SUBCUTANEOUS INFUSION DAILY. USE IN CASE OF PUMP FAILURE TO INJECT 60 UNITS DAILY, # 15 mL, 11 Refills, Maintenance, 10/27/24 9:36:00 AM EST, [facility], 183, cm, 10/21/24 10:59:00 EST, Height, 110.6, kg, 08/26/24 14:02:00 EST, Dry Weight 10/28/19 25 Active insulin lispro (ADMELOG, HUMALOG) 100 unit/mL injection vial Inject under the skin. 08/26/19 25 Active ipratropium-albu teroL (DUONEB) 0.5-3 mg (2.5 mg base)/3 mL nebulizer solution 04/08/20 25 Active lisinopril (PRINIVIL,ZESTRI L) 40 MG tablet Take 40 mg by mouth. 03/10/20 25 Active potassium citrate 99 mg Cap Take 99 mg by mouth. Active pregabalin (LYRICA) 150 MG capsule Take 150 mg by mouth 3 (three) times a day. Active rosuvastatin (CRESTOR) 40 MG tablet Take 40 mg by mouth daily. 03/31/20 25 Active spironolactone (ALDACTONE) 25 MG tablet 04/20/20 25 Active Encounters Date Type Department Care Team Description 05/10/2025 2:00 PM EDT Office Visit [facility] Department of Orthopaedic Surgery, Foot & Ankle Service [address] [place] [address] Raz Dickerson PA-C Arthritis of right ankle (Primary Dx); Chronic pain of left ankle; Pes planus of both feet; History of type 1 diabetes mellitus 05/10/2025 12:19 PM EDT - 05/10/2025 11:59 PM EDT Hospital Encounter [facility] - Diagnostic Radiology, [address] [place] [phone] Raz Dickerson PA-C Discharge Disposition: Home or Self Care 05/09/2025 Orders Only [facility] Sports Medicine [address] [place] [phone] Pimlott, Danuta Pain (Primary Dx) 04/05/2025 Transcribe Orders [facility] Orthopedics & Sports Medicine [address] [place] [address] Doretha Pablo MD from Last 3 Months [...] Care Team (Late st Contact Info) Description 08/09/2025 1:00 PM EST Office Visit [facility] Department of Orthopaedic Surgery, Foot & Ankle Service [address] [place] [address] Raz Dickerson PA-C [address] [facility] [place] [phone] [email or web address] Maintenance Due Date Last Done Comments CREATININE LEVEL 1975 POTASSIUM LEVEL 1975 DEPRESSION SCREENING 1987 SMOKING Hx and SMOKELESS TOBACCO SCREENING 1988 HEPATITIS C SCREENING 1993 HIV ONE-TIME SCREENING (18-65 YEARS) 1993 Adult Td,Tdap Booster 12/14/2017 12/15/2007 COLOGUARD 2020 COLONOSCOPY 2020 COLORECTAL CANCER SCREENING 2020 FIT TEST 2020 FOBT 2020 SIGMOIDOSCOPY 2020 VIRTUAL COLONOSCOPY 2020 INFLUENZA VACCINE (#1) 2025 05/01/2022 COVID-19 VACCINE ( season) 2025 LIPID PANEL 05/02/2030 05/02/2025, 09/0 03/2025, 05/02/2025, Additional history exists HEPATITIS A VACCINES Aged Out No long [...] this topic Medical Devices Not on file Procedures Procedure Name Priority Date/Time Associated Diagnosis Comments XR ANKLE 3 OR MORE VIEWS (RIGHT) Routine 05/10/2025 12:32 PM EDT Pain XR ANKLE 3 OR MORE VIEWS (LEFT) Routine 05/10/2025 12:32 PM EDT Pain from Last 3 Months Results * XR ANKLE 3 OR MORE VIEWS (RIGHT) (05/10/2025 12:32 PM EDT) Anatomical Region Laterality Modality Ankle Right Radiographic Falguni ging 05/10/2025 3:11 PM EDT Impressions 05/10/2025 3:13 PM EDT Left ankle: No acute fracture or dislocation. 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 Narrative 05/10/2025 3:13 PM EDT XR ANKLE 3 OR MORE VIEWS (RIGHT), XR ANKLE 3 OR MORE VIEWS (LEFT) Referring clinician's provided indication for this examination in Epic: Pain COMPARISON: None FINDINGS: Left ankle: No acute fracture. Normal alignment. Symmetric ankle mortise. Mild tibiotalar osteophytes. Normal joint spaces. No ankle effusion. Distal Achilles enthesophyte. Right ankle: Severe tibiotalar osteoarthritis with ankle valgus alignment resulting in complete loss of the lateral tibiotalar joint space and lateral clear space and remodeling of the talus. Severe subtalar osteoarthritis. Small ankle effusion. No acute fracture. Procedure Note Leonor Baxter MD - 05/10/2025 XR ANKLE 3 OR MORE VIEWS (RIGHT), XR ANKLE 3 OR MORE VIEWS (LEFT) Referring clinician's provided indication for this examination in Epic:Pain COMPARISON: None FINDINGS: Left ankle: No acute fracture. Normal alignment. Symmetric ankle mortise.Mild tibiotalar osteophytes. Normal joint spaces. No ankle effusion.Distal Achilles enthesophyte. Right ankle: Severe tibiotalar osteoarthritis with ankle valgus alignmentresulting in complete loss of the lateral tibiotalar joint space andlateral clear space and remodeling of the talus. Severe subtalarosteoarthritis. Small ankle effusion. No acute fracture. IMPRESSION: Left ankle: No acute fracture or dislocation. Right ankle: Severe tibiotalar and subtalar osteoarthritis with anklevalgus alignment. us Raz Dickerson PA-C IMG XR LOWER EXTREMITY Final Res ult * XR ANKLE 3 OR MORE VIEWS (LEFT) (05/10/2025 12:32 PM EDT) Anatomical Region Laterality Modality Ankle Left Radiographic Falguni ging 05/10/2025 3:11 PM EDT Impressions 05/10/2025 3:13 PM EDT Left ankle: No acute fracture or dislocation. 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 Narrative 05/10/2025 3:13 PM EDT XR ANKLE 3 OR MORE VIEWS (RIGHT), XR ANKLE 3 OR MORE VIEWS (LEFT) Referring clinician's provided indication for this examination in Epic: Pain COMPARISON: None FINDINGS: Left ankle: No acute fracture. Normal alignment. Symmetric ankle mortise. Mild tibiotalar osteophytes. Normal joint spaces. No ankle effusion. Distal Achilles enthesophyte. Right ankle: Severe tibiotalar osteoarthritis with ankle valgus alignment resulting in complete loss of the lateral tibiotalar joint space and lateral clear space and remodeling of the talus. Severe subtalar osteoarthritis. Small ankle effusion. No acute fracture. Procedure Note Leonor Baxter MD - 05/10/2025 XR ANKLE 3 OR MORE VIEWS (RIGHT), XR ANKLE 3 OR MORE VIEWS (LEFT) Referring clinician's provided indication for this examination in Epic:Pain COMPARISON: None FINDINGS: Left ankle: No acute fracture. Normal alignment. Symmetric ankle mortise.Mild tibiotalar osteophytes. Normal joint spaces. No ankle effusion.Distal Achilles enthesophyte. Right ankle: Severe tibiotalar osteoarthritis with ankle valgus alignmentresulting in complete loss of the lateral tibiotalar joint space andlateral clear space and remodeling of the talus. Severe subtalarosteoarthritis. Small ankle effusion. No acute fracture. IMPRESSION: Left ankle: No acute fracture or dislocation. Right ankle: Severe tibiotalar and subtalar osteoarthritis with anklevalgus alignment. Raz Dickerson PA-C IMG XR LOWER EXTREMITY Final Res ult from Last 3 Months Insurance MEDICARE PART A & B [facility] MEDICARE PART A & B Member Subscriber Plan / Payer ( fective 1999-) Name:Shubham Pappas Member ID:[id number] Relation to Subscriber:Self Name:Shubham Pappas Subscriber ID:[id number] Payer ID:[id number] Group ID:Not on file Type:Medicare Address: [employer] [address] [facility] B [facility] MEDIC[facility] PART A & B [facility] B [facility] MEDIC[facility] A & B [facility] MEDICARE PART A & B [facility] MEDICARE [facility] A & B [facility] MEDICARE PART A & B [facility] Care Teams Swing Frame Grinder Operator Relationship Specialty Start Date End Date Doretha Pablo MD [address] [place] [id number] PCP - General Internal Medicine 03/18/25 Additional Source Comments The information contained in this document represents components of the legal health record. It is not the complete legal health record.[facility]
--- OUTSIDE RECORDS SUMMARY | 2025-05-19 17:04 | XMS_ITS | Continuity of Care Document ---
Author Organization [facility] Address [address] [facility] [address] [place] [address] Phone [phone] Social History Type Date Description Comments Sex Male Sex Unknown Medical Devices Description No Information Available Encounters Description No Information Available Assessments Description No Information Available Plan of Treatment No Information Available Functional Status Description No Information Available Mental Status Description No Information Available Referrals Description No Information Available
--- OUTSIDE RECORDS SUMMARY | 2025-05-19 17:04 | XMS_ITS | Encounter Summary ---
Author Organization [facility] Address [address] [place] [address] Phone Care Team Providers Care Sales Representative Rural Power Name Role Phone Doretha Pablo MD Primary Care Provider [phone] Encounter Details Date Type Department Care Team (Late st Contact Info) Description 05/09/2025 Orders Only [facility] Medicine [address] [place] [address] Danuta Ribeiro [phone] [place] [address] [email or web address] Pain (Primary Dx) Social History Tobacco Use Types Packs/Day Years [...] not to disclose 2024 12:48 PM EDT documented as of this encounter Plan of Treatment Upcoming Encounters Date Type Department Care Team (Late st Contact Info) Description 08/09/2025 1:00 PM EST Office Visit [facility] Department of Orthopaedic Surgery, Foot & Ankle Service [address] [place] [address] Raz Dickerson PA-C [address] [facility]rd-[address] [place] [phone] [email or web address] documented as of this encounter Results * XR ANKLE 3 OR MORE [...] tibiotalar and subtalar osteoarthritis with anklevalgus alignment. Rza Dickerson PA-C IMG XR LOWER EXTREMITY Final [...] IMG XR LOWER EXTREMITY Final Res ult documented in this encounter Visit Diagnoses Diagnosis Pain- Primary Generalized pain Pain Generalized pain documented in this encounter Care Teams Sales Representative Rural Power Relationship Specialty Start Date End Date Doretha Pablo MD [address] [place] [phone] PCP - General Internal Medicine 03/18/25 documented as of this encounter Additional Source Comments The information contained in this document represents components of the legal health record. It is not the complete legal health record.[facility]
== END 2025-05-19 13:23 | disposition home or self-care (01) ==
LOC: HO.RHES 12:06
PROVIDERS: PCP Internal Medicine; Visit Provider Student in an Organized Health Care Education/Training Program
DX: M19.071 Primary osteoarthritis, right ankle and foot (principal); M19.072 Primary osteoarthritis, left ankle and foot; I73.00 Raynaud's syndrome without gangrene; Z79.1 Long term (current) use of non-steroidal anti-inflammatories (NSAID)
CPT/HCPCS: 99214

== ENCOUNTER → 2025-05-19 12:05 | Outpatient (BNVA) | payer MEDICARE, MEDICAID, SELFPAY | PROVIDERS: PCP Internal Medicine; Visit Provider Student in an Organized Health Care Education/Training Program | DX: M19.071 Primary osteoarthritis, right ankle and foot (principal); M19.072 Primary osteoarthritis, left ankle and foot; I73.00 Raynaud's syndrome without gangrene; Z79.1 Long term (current) use of non-steroidal anti-inflammatories (NSAID) | CPT/HCPCS: 99212 ==

== ENCOUNTER 2025-05-24 11:19 | Outpatient (AMB) | payer MEDICARE, MEDICAID, SELFPAY ==
[2025-05-24 11:31] VITALS: BP 140/84; PULSE 72; O2SAT 99; BMI 32.1
--- NOTE | 2025-05-24 11:31 | MHC.OFFVIS ---
Vital Signs 05/24/25 11:31 Height 6 ft Weight 236 lb 15.951 oz BMI 32.1 BP 140/84 H Blood Pressure Location Lt brachial Position Sitting Pulse 72 Pulse Source Pulse Oximeter Pulse Oximetry (%) 99 Oxygen Delivery Method Room Air Intake Visit Reasons: Obstructive sleep apnea Intake Note: pt is here for follow up and states he is feeling good Microfilmer Required: No Advertising Copy Writer: Advertising Copy Writer offered & declined Allergies codeine Allergy (Unknown, Verified 05/24/25 11:41) itching ibuprofen (IBUPROFEN) Allergy (Unknown, Verified 05/24/25 11:41) HIVES ketorolac Allergy (Unknown, Verified 05/24/25 11:41) swelling sumatriptan (From IMITREX) Allergy (Unknown, Verified 05/24/25 11:41) TACHYCARDIA bupropion (From Wellbutrin) Adverse Reaction (Severe, Verified 05/24/25 11:41) suicide thoughts prochlorperazine (From Compazine) Adverse Reaction (Unknown, Verified 05/24/25 11:41) Unknown Do you need a note to return to daycare/school/sports/work: No HPI HPI Obstructive sleep apnea: Details: THIS 49 YEARS OLD GENTLEMAN IS HERE TODAY EARLIER THAN HIS SCHEDULED APPOINTMENT BECAUSE AFTER SOME NIGHTS HE GETS AN ALARM THAT HIS RESIDUAL AHI WAS HIGH. HE SLEEPS OKAY USES CPAP VERY REGULARLY EVERY NIGHT. BUT HE GOT SOMEWHAT ANXIOUS TO SEE THAT ALERT SIGN. HE HAS MILD ALLERGIC RHINITIS AND MILD CASE OF BRONCHIAL ASTHMA WHICH IS UNDER CONTROL. HE SAYS THAT DURING SOME NIGHTS IS HEARTBEAT GOES DOWN TO LOW 40, BUT DURING THE DAYTIME IT IS IN NORMAL RANGE. OVERALL HE HAS BEEN DOING WELL. [facility] Medical History Allergic rhinitis detention (current) use of non-steroidal anti-inflammatories (nsaid) Obesity (BMI 35.0-39.9 without comorbidity) Bronchitis COPD (chronic obstructive pulmonary disease) Restrictive lung disease SABRINA (obstructive sleep apnea) Morbid obesity Social History Household Members: Significant Other Housing: House Alcohol intake: never Patient Tobacco Use Status: Never used Tobacco Current occupational status: disabled Current occupation: Lt handed Review of Systems Const All systems reviewed & are unremarkable except as noted in HPI and below Eyes Reports no additional complaints ENT Details: reports bloody nose upon removal of CPAP each morning Reports nasal discharge and Reports post nasal drip Card Denies chest pain, Denies irregular heart rhythm and Denies leg edema Resp Reports as per HPI GI Reports no additional complaints Reports no additional complaints Musc Reports back pain and Reports muscle weakness Skin/Breast Reports system reviewed and no additional complaints, except as documented Neuro Reports Neuro-related abnormal movements and Reports other (Case of posttraumatic paraparesis) Psych Reports no additional complaints Endo Reports other (Diabetes mellitus with labile blood sugars) Physical Exam Vital Signs: Last Vital Signs Pulse 72 05/24/25 11:31 BP 140/84 H 05/24/25 11:31 Pulse Ox 99 05/24/25 11:31 Oxygen Delivery Method Room Air 05/24/25 11:31 BMI result Body Mass Index 32.1 Const General: comfortable, no acute distress, alert and awake Orientation/consciousness: patient oriented x3 HEENT Head: Yes normal to inspection General nose exam: No nasal polyps present and No nasal discharge present Face and sinus: Yes other (BILTERAL ATROPHIC RHINITIS) Mouth: oropharynx abnormals (Very crowded, Mallampati class 4) Throat: Yes posterior oropharynx normal Eyes General: appearance normal, both eyes and all related structures Neck Neck: Yes normal visual inspection, Yes no lymphadenopathy, Yes trachea midline, Yes no JVD and Yes other (Short and obese) Thyroid: Thyroid normal Chest Chest palpation & inspection: normal inspection of the chest, normal palpation of entire chest wall and no tenderness Resp Other: Percussion note resonant, breath sounds are distant and especially decreased over the bibasilar areas. No wheezes, rhonchi or crepitations are heard today. He has relatively small lung volumes but both lungs are clear. Cardio Palpation: normal PMI Rate: regular rate Rhythm: regular rhythm Heart sounds: no gallops and no murmurs GI Palpation (GI): Soft to palpation, nontender, No hepatosplenomegaly present, no masses and Other GI palpation findings present (Abdomen is quite obese and protuberant) Auscultation: normal bowel sounds Back/Spine/Pelvis Thoracic/Lumbar Spine: thoracic and lumbar spine normal to inspection Skin General skin exam: no rashes or lesions noted Neuro General: patient oriented x3, No gait normal (Not able to walk,he uses quad cane in the house,motorized chair for outdoor) and no focal motor deficits Cranial nerves: Yes CN's II-XII intact bilaterally Extrem General: Yes normal to inspection, Yes no calf tenderness and Yes edema (Mild dependent edema of the legs) Psych Appearance: grossly normal and well kempt Speech and movement: Normal speech and movement present Results Reviewed Results Reviewed: COMPLIANCE REPORT FOR THE LAST 30 NIGHTS SHOWS THAT HE HAS BEEN 100% COMPLIANT, WITH AVERAGE USE IT PER NIGHT 7 HOURS 55 MINUTES. HE IS USING CPAP OF 10 CM, WITH A NASAL MASK. .THERE IS NO SIGNIFICANT AIR LEAK AHI 1.7 Assessment & Plan Assessment & Plan (1) SABRINA (obstructive sleep apnea): Comment: KNOWN CASE OF SEVERE SABRINA . HE IS VERY HAPPY AND DOING WELL WITH CPAP, WITH PRESSURE OF 10 CM. COMPLIANCE IS VERY GOOD Patient with ALLERGIC rhinitis, and does get some nasal congestion during the night. Code(s): G47.33 - Obstructive sleep apnea (adult) (pediatric) Category: Medical Plan: Continue using Flonase 2 spray in each nostril every night. Use Claritin 10 mg once a day p.r.n. (2) COPD (chronic obstructive pulmonary disease): Comment: He carries diagnosis of mild bronchial asthma/COPD, but it seems to be well controlled at this time. Code(s): J44.9 - Chronic obstructive pulmonary disease, unspecified Category: Medical Plan: OK to use Arnuity Ellipta 1 inhalation daily. And albuterol HFA 2 puffs Q 6 hours p.r.n. (3) Allergic rhinitis: Comment: He has chronic nasal congestion with postnasal drip. Controlled with use of Flonase and also he uses, pseudo ephedrine 120 mg Q 12 hours almost on a regular basis. He is aware that Sudafed will raise his blood pressure but I current blood pressure regimen has been titrated due to his daily Sudafed use. Code(s): J30.9 - Allergic rhinitis, unspecified Category: Medical Plan: cont. Flonase - 50 2 sprays in each nostril daily , loratadine 10 mg once a day only PRN . avoid using sudafed (4) Obesity (BMI 35.0-39.9 without comorbidity): Comment: He has history of morbid obesity but over the last few years he has gradually lost more than 100 lb of weight. He is a known to have gastro paresis, and is not able to eat large portions of food at a time. He continues to lose weight, slowly Code(s): E66.9 - Obesity, unspecified Category: Medical Plan: Commended for continuing to lose weight slowly Coding Level of Care Code Est Pt Level 3 (69034) Diagnoses SABRINA (obstructive sleep apnea) G47.33 COPD (chronic obstructive pulmonary disease) J44.9 Allergic rhinitis J30.9 Obesity (BMI 35.0-39.9 without comorbidity) E66.9
--- OUTSIDE RECORDS SUMMARY | 2025-05-24 12:47 | XMS_ITS | Continuity of Care Document ---
Author Organization [facility] Address [address] [facility] [address] [place] [address] Phone [phone] Social History Type Date Description Comments Sex Male Sex Unknown Medical Devices Description No Information Available Encounters Description No Information Available Assessments Description No Information Available Plan of Treatment No Information Available Functional Status Description No Information Available Mental Status Description No Information Available Referrals Description No Information Available
--- OUTSIDE RECORDS SUMMARY | 2025-05-24 12:47 | XMS_ITS | Clinical Summary ---
Author Organization [facility] Address [address] [place] [address] Care Team Providers Care Engineering Professor Name Role Phone Unavailable Primary Care Provider [...]
--- OUTSIDE RECORDS SUMMARY | 2025-05-24 12:47 | XMS_ITS | Clinical Summary ---
Author Organization [facility] Address [address] [place] [address] Phone Care Team Providers Care Funeral Pre Arrangement Counselor Name Role Phone Doretha Pablo MD Primary Care Provider [phone] Allergies Active Allergy Reactions Criticality Noted Date [...] 2 Refills, Maintenance, 04/05/25 1:01:00 PM EDT, [facility], 183, cm, 03/16/25 13:29:00 EDT, Height, [...] 6 Refills, Maintenance, 02/05/25 10:20:00 AM EDT, [facility], 183, cm, 12/23/24 8:32:00 EDT, Height, 105.5, kg, 12/15/24 14:39:00 EDT, Dry Weight 02/06/20 25 Active BASAGLAR KWIKPEN U-100 INSULIN 100 unit/mL (3 mL) InPn injection pen See Instructions, INJECT 60 UNITS SUBCUTANEOUS INFUSION DAILY. USE IN CASE OF PUMP FAILURE TO INJECT 60 UNITS DAILY, # 15 mL, 11 Refills, Maintenance, 10/27/24 9:36:00 AM EST, [facility], 183, cm, 10/21/24 10:59:00 EST, Height, [...] 05/10/2025 2:00 PM EDT Office Visit [facility] Department of Orthopaedic Surgery, Foot & Ankle Service [address] [place] [address] Raz Dickerson PA-C Arthritis of right ankle (Primary Dx); Chronic pain of left ankle; Pes planus of both feet; History of type 1 diabetes mellitus 05/10/2025 12:19 PM EDT - 05/10/2025 11:59 PM EDT Hospital Encounter [facility] - Diagnostic Radiology, [address] [place] [address] Raz Dickerson PA-C Discharge Disposition: Home or Self Care 05/09/2025 Orders Only [facility] Medicine [address] [place] [address] Pimlott, Danuta Pain (Primary Dx) 04/05/2025 Transcribe Orders [facility] Orthopedics & Sports Medicine [address] [place] [address] Doretha Pablo MD from Last 3 Months [...] 08/09/2025 1:00 PM EST Office Visit [facility] Department of Orthopaedic Surgery, Foot & Ankle Service [address] [place] [address] Raz Dickerson PA-C [address] [facility]-[address] [place] [phone] [email or web address] Health Maintenance Due Date Last Done [...] Months Insurance MEDICARE PART A & B [facility] MEDIC[facility] PART A & B Member Subscriber Plan / Payer ( fective 1999-) Name:Shubham Pappas Member ID:[id number] Relation to Subscriber:Self Name:Shubham Pappas Subscriber ID:[id number] Payer ID:[id number] Group ID:Not on file Type:Medicare Address: [place] [id number] [facility] B [facility] MEDICARE PART A & B [facility] B [facility] MEDICARE PART A & B [facility] MEDICARE PART A & B [facility] MEDICARE PART A & B [facility] MEDICARE PART A & B [facility] Care Teams Funeral Pre Arrangement Counselor Relationship Specialty Start Date End Date Doretha Pablo MD [address] [place] [phone] PCP - General Internal Medicine 03/18/25 Additional Source Comments The information contained in this document represents components of the legal health record. It is not the complete legal health record.[facility]
--- OUTSIDE RECORDS SUMMARY | 2025-05-24 12:47 | XMS_ITS | Clinical Summary ---
Author Organization [facility] Address [address] [place] [address] Care Team Providers Care Tube Balancer Name Role Phone Unavailable Primary Care Provider [...]
--- OUTSIDE RECORDS SUMMARY | 2025-05-24 12:47 | XMS_ITS | Clinical Summary ---
Author Organization [facility] Address [address] [place] [address] Care Team Providers Care Nitric Acid Plant Operator Name Role Phone Unavailable Primary Care [...]
--- OUTSIDE RECORDS SUMMARY | 2025-05-24 12:47 | XMS_ITS | Encounter Summary ---
Author Organization [facility] Address [address] [place] [address] Phone Care Team Providers Care Service Center Appraiser Name Role Phone Doretha Pablo MD Primary Care Provider [phone] Encounter Details Date Type Department Care Team (Late st Contact Info) Description 05/09/2025 Orders Only [facility] Medicine [address] [place] [address] Danuta Ribeiro [phone] [place] [address] [email or web address] Pain (Primary Dx) Social History Tobacco Use [...] Description 08/09/2025 1:00 PM EST Office Visit [facility] Department of Orthopaedic Surgery, Foot & Ankle Service [address] [place] [address] Raz Dickerson PA-C 55 [facility]-3rd-[address] [place] [phone] [email or web address] documented as of this encounter Results [...] pain documented in this encounter Care Teams Service Center Appraiser Relationship Specialty Start Date End Date Doretha Pablo MD [address] [place] [address] PCP - General Internal Medicine 03/18/25 documented as of this encounter Additional Source Comments The information contained in this document represents components of the legal health record. It is not the complete legal health record.[facility]
--- OUTSIDE RECORDS SUMMARY | 2025-05-24 12:47 | XMS_ITS | Clinical Summary ---
Author Organization [facility] Address [address] [address] Phone Care Team Providers Care Spacer Type Bar And Segment Name Role Phone Doretha Pablo MD Primary Care Provider [phone] Allergies Active Allergy Reactions Criticality Noted Date [...] Office Visit [facility] [address] [phone] Romario Gifford MD [address] [phone] Health Maintenance Due Date Last [...] PCV21) 2025 06/21/2015, 08/27/2006, 10/28/2005 Insurance [place] Care Teams Spacer Type Bar And Segment Relationship Specialty Start Date End Date Doretha Pablo MD [address], [facility] [address] [place] [address] PCP - General Internal Medicine 08/28/23
--- OUTSIDE RECORDS SUMMARY | 2025-05-24 12:47 | XMS_ITS | Clinical Summary ---
Author Organization [facility] Address [address] [place] [address] Phone Care Team Providers Care Soil Expert Name Role Phone Doretha Avilez MD Primary Care Provider + [phone] Allergies Active Allergy Reactions Criticality Noted Date Comments Acetaminophen-Codeine Seizures High 09/13/2024 Nsaids (Non-Steroidal Anti-Inflammatory Drug) Other 03/03/2025 Prochlorperazine Other 09/13/2024 Suicidal ideations Bupropion Hcl 01/17/2025 Medications empagliflozin (Jardiance) 10 mg tablet Take 1 [...] mouth 3 (three) times a day. Active insulin lispro 100 unit/mL injection Inject under the skin 3 (three) times a day before meals. -Administer within 15 minutes of a meal Active rosuvastatin (CRESTOR) 40 mg tablet TAKE ONE TABLET BY MOUTH ONCE DAILY 90 tablet 1 03/31/20 25 Active lisinopril (PRINIVIL,ZEST RIL) 40 mg tablet Take 1 tablet (40 mg total) by mouth 1 (one) time each day. Active potassium citrate 99 mg capsule Take 99 mg by mouth 2 (two) times a day. Active lisinopriL (PRINIVIL,ZEST RIL) 20 mg tablet Take 1 tablet (20 mg total) by mouth 1 (one) time each day. 025 Discontinued(Do se adjustment) spironolactone (ALDACTONE) 50 mg tablet Take 1 tablet (50 mg total) by mouth 1 (one) time each day. 025 Discontinued(Pa tient Discharge) inf form, glutaric aciduria I 13-475 gram-kcal/100 g powder Take by mouth. 025 Discontinued(Th erapy completed) spironolactone (ALDACTONE) 25 mg tablet Take 0.5 tablets (12.5 mg total) by mouth every other day. Discontinued Active Problems Problem Noted Date Diagnosed Date Syncope 01/17/2025 Heart failure with improved ejection fraction (HFimpEF) (CMS/HCC V24, CMS/HCC V28) 01/17/2025 Assessment & Plan (04/26/2025 7:00 PM EDT): The patient has heart failure with reduced ejection fraction. Etiology: Nonischemic Last ischemic work-up: 1. Nuclear stress test from February 2024 did not show any evidence of ischemia or infarct. Last documented LVEF: 1. Cardiac MRI from March 2024 showed an LVEF of 46%. 2. [facility] cardiology service note from 11/24/2024 states that the patient's echocardiogram done at [facility] showed an LVEF of 60% Current symptom classification: NYHA class 2 Guideline directed medical therapy: 1. Beta-blockers: None 2. ARNI / THO inhibitor / ARB: Lisinopril 40 mg orally daily 3. MRA: None 4. SGL2 inhibitor: Jardiance 10 mg orally daily Candidate for ICD or BLOCK LAYER: The patient is not a candidate for an ICD or BLOCK LAYER given LVEF Assessment and plan: The patient has a history of heart failure with reduced ejection fraction due to a nonischemic cardiomyopathy. Nuclear stress test from November 2023 did not show any evidence of ischemia or infarct. Cardiac MRI from March 2024 showed an LVEF of 46% without evidence of an infiltrative cardiomyopathy. The patient is also being followed by different cardiology team at [facility]. It seems that they started the patient on an SGLT2 inhibitor (Jardiance) despite his history of diabetes mellitus type 1. According to the patient, this was done in consultation with his cad drafter in [place]. More recently, the patient has been having episodes of recurrent dehydration. He self discontinued the use of spironolactone. Of note, the patient was previously on spironolactone due to his cardiomyopathy and also due to a history of chronic hypokalemia. Since discontinuing the spironolactone, he has not had any recurrent episodes of dehydration. During today's visit, I had an extensive conversation with the patient regarding his medication regimen. I explained to the patient that I am concerned about the continued use of Jardiance given his history of diabetes mellitus type 1 and also given his history of dehydration. The patient states that he has a follow-up appointment with his cad drafter in [place] next week. I encouraged the patient to review the use of Jardiance with his endocrinology team to determine if the patient should continue on this medication given his history of diabetes mellitus type 1, increased risk of diabetic ketoacidosis, and recent hospitalization due to dehydration which may have been precipitated by the diuretic effects from the Jardiance. In the meantime, the patient will continue to hold the use of spironolactone. I also encouraged the patient to discuss with his cad drafter whether he needs to undergo further evaluation to rule out the presence of hyperaldosteronism. In the meantime, I will arrange for the patient to complete a follow-up basic metabolic panel next week in order to make sure that his potassium level has remained in the normal range given that the patient is supplementing with [id number] potassium supplements. Orders: Basic metabolic panel; Future Lipid panel; Future Assessment & Plan (01/17/2025 9:14 PM EDT): [...] care with the cardiology group at the [facility] cardiology service. Apparently, the patient was started on Jardiance 10 mg orally daily for treatment of his heart failure. As noted previously, the patient has diabetes mellitus type 1. The patient states that the initiation of Jardiance was done by the cardiology group at [facility] after consultation with the patient's new cad drafter at [facility] (Dr. Juliann Hayward). The patient states that he is fully aware of the increased risk of diabetes ketoacidosis with the use of Jardiance in a patient with diabetes type 1. The patient states that for this reason he was instructed by his cad drafter to check his ketone levels every day. On the other hand, the patient states that he is currently on lisinopril 20 mg orally daily and spironolactone 50 mg orally daily as part of the treatment of his heart failure. He is currently on these medications as recommended by his new cardiology team at [facility]. The patient states that with this regimen, his LVEF has improved as was apparently noted on a recent echocardiogram done at [facility]. Review of the [facility] cardiology service note from 11/24/2024 seems to verify this information given that the note states that the patient's echocardiogram done at [facility] showed an LVEF of 60%. Nevertheless, I do not have the report or the images of the echocardiogram at this point in order for me to review the study findings directly. During today's visit, we had an extensive conversation regarding the fact that the patient wishes to continue to see his new cardiology team at [facility] and he also wants to continue [...] will also continue to follow with the [facility] cardiology service. I explained to the patient that his current medication regimen (lisinopril, Jardiance, and spironolactone) is being prescribed and managed by his cardiology team at [facility]. Therefore, I instructed the patient that he should continue to follow-up with the cardiology team at [facility] regarding the monitoring and management of these medications. The patient was also instructed to follow-up with his cad drafter at [facility] for continued management of his diabetes mellitus type 1 including the management of his diabetes medications. Encounters Date Type Department Care Team Description 04/26/2025 1:30 PM EDT Office Visit [facility] [address] [place] [address] [address] [place] [address] Fco Ford MD Heart failure with improved ejection fraction (HFimpEF) (CMS/HCC V24, CMS/HCC V28) (Primary Dx) 04/26/[address] [facility] [address] [facility] [address] [place] [address] Fco Ford MD 04/26/[address] [place] [address] Fco Ford MD 04/05/2025 Telephone [facility] [address] [place] [address] [address] [place] [address] Fco Ford MD 03/03/2025 8:45 PM EDT - 03/03/2025 10:37 PM EDT Emergency [facility] Emergency [address] [place] [address] Mayda Catherine MD Laceration of left middle finger without foreign body without damage to nail, initial encounter (Primary Dx) Discharge Disposition: Home or Self Care 02/20/2025 8:16 PM EDT - 02/21/2025 12:17 AM EDT Emergency [facility] Emergency [address] [place] [address] Maegan Aguilar DO Hypoglycemia (Primary Dx) Discharge Disposition: Home or Self Care from Last 3 Months Immunizations Immunization Administration Dates Next Due Tdap Tetanus diptheria acell ular pertussis (Boostrix; Adacel) 7yo and older 03/03/2025 Surgical History Surgery Date Site/Laterality Comments HERNIA REPAIR PROCEDURE: HISTORICAL HERNIA REPAIR/UMB; COMMENT: as Medical History Medical History Date Comments Diabetes ([facility] V24, [facility] V28) DX:Diabetes (HCC) HTN (hypertension) DX:HTN (hyper tension) Hypercholesteremia DX:Hyperchole steremia Neuropathy DX:Neuropathy;CO MMENT:diabetic Migraine DX:Migraine Depression DX:Depression History of herniated interve rtebral disc DX:History of herniated intervertebral disc Degenerative disc disease, lumbar DX:Degenerative disc disease, lumbar Diabetic neuropathy ([facility] V24, [facility] V28) DX:Diabetic neuropathy (HCC) Chronic low back pain DX:Chronic low back pain Migraine DX:Migraine Gastroparesis DX:Gastroparesis Depression DX:Depression Anxiety DX:Anxiety Hyperlipidemia LDL goal <100 DX: Hyperlipidemia LDL goal <100 HTN (hypertension), benign DX:HT N (hypertension), benign Asthma DX:Asthma Chronic painful diabetic kapil ropathy ([facility] V24, [facility] V28) DX:Chronic painful diabetic neuropathy (HCC) Gastroenteritis DX:Gastroenterit is Hx of hernia repair DX:Hx of her qing repair Obesity hypoventilation synd ike ([facility] V24, [facility] V28) DX:Obesity hypoventilation syndrome (HCC) Obstructive sleep apnea DX:Obstr uctive sleep apnea Insomnia DX:Insomnia 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 ([facility] V24, [facility] V28) DX:Controlled ty pe 1 diabetes with neuropathy (HCC) GERD (gastroesophageal reflux disease) DX:GERD (gastroesophageal reflux disease) Lower extremity edema DX:Lower e xtremity edema 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 ([facility] V24, [facility] V28) DX:Type 1 diabet es mellitus with diabetic neuropathy (HCC) Morbid obesity with BMI of 6 0.0-69.9, adult ([facility] V24, [facility] V28) 05/08/2021 DX:Morbid obesity wit h BMI of 60.0-69.9, adult (HCC) Charcot's joint of ankle, right 05/08/2021 DX:Charcot's joint of ankle, right Heart failure with preserved ejection fraction ([facility] V24, [facility] V28) 02/22/2021 DX:Heart failure w ith preserved ejection fraction (HCC); COMMENT: Hospitalized [facility] 09/2020 for hypoxic hypercarbic resp failure. Syncope [...] Never Smokeless Tobacco: Never Tobacco Cessation:Counseling Given: Not Answered Alcohol Use Standard Drinks/Week Comments Never 0 (1 standard drink = 0.6 oz pur e alcohol) Interpersonal Safety Answer Date Record ed Physical Abuse Unrecognized value 01/18/2025 Verbal Abuse Unrecognized value 01/18/2025 Sex and Gender Information Value Date Recorded Sex Assigned at Male 09/13/2024 12:24 PM EST Legal Sex Male 12:24 PM EST Gender Identity Male 09/13/2024 12:24 PM EST Sexual Orientation Straight 09/13/2024 12 :24 PM EST Obstetrics History Last Filed Vital Signs Vital Sign Reading Time Taken Comments Blood Pressure 136/80 04/26/2025 1:17 PM EDT Pulse 68 04/26/2025 1:17 PM EDT Temperature 36.7 C (98.1 F) 03/03/2025 8:38 PM EDT Respiratory Rate 16 03/03/2025 8:38 PM EDT Oxygen Saturation 96% 04/26/2025 1:17 PM EDT Inhaled Oxygen Concentration - - Weight 101 kg (223 lb 9.6 oz) 04/26/2025 1:17 PM EDT Height 182.9 cm (6') 04/26/2025 1:17 PM EDT Body Mass Index 30.33 04/26/2025 1:17 PM EDT Plan of Treatment Upcoming Encounters Date Type Department Care Team (Late st Contact Info) Description 08/01/2025 2:30 PM EST Office Visit [facility] [address] [facility] [address] [place] [address] Fco Ford MD [address] [place] [address] Dr [address] [place] [address] Health Maintenance Due Date Last Done Comments Colorectal Cancer Screening: Colonoscopy 1975 Diabetes: Annual Foot Exam 1985 Diabetes: Annual Retina Eye Exam 1985 Hepatitis B Vaccines (1 of 3 - 19+ 3-dose series) 1994 HIV Screening 08/03/2022 Hepatitis C Screening 08/03/2022 Medicare Annual Wellness Visit 08/03/2022 Social Influencers of Health Screening 08/03/2022 Depression Screening 08/25/2024 COVID-19 Vaccine (2024- season) 2025 09/05/2022, 02/23/2022, 08/03/2021, Additional history exists Influenza Vaccine (#1) 2025 , 05/01/2022, 06/26/2021, [...] Td or Tdap) 03/03/2035 03/03/2025, 03/03/2025, 12/15/2007 RSV Immunization Adult Patients (1 - 1-dose 75+ series) 2050 HIB Vaccines Aged Out No longer eligi [...] Comments HC REPAIR WOUND LEVEL 1 Routine 03/03/2025 10:06 PM EDT AR REPAIR SPRFCL WOUNDS SIMPLE SCALP/NECK/AXILLAE/ GENT/TRUNK/EXT <= 2.5 CM Routine 03/03/2025 10:06 PM EDT ECG ANNOTATED 02/21/2025 BASIC METABOLIC PANEL STAT 02/20/2025 8:40 PM EDT from Last 3 Months or Most Recently Relevant to Health Maintenance Results * AR REPAIR SPRFCL WOUNDS SIMPLE SCALP/NECK/AXILLAE/GENT/TRUNK/EXT <= 2.5 CM, HC REPAIR WOUND LEVEL 1 (03/03/2025 10:06 PM EDT) Mayda Quintero MD - 03/03/2025 10:06 PM EDT Mayda Catherine MD 03/03/2025 10:09 PM Laceration Repair Date/Time: 03/03/2025 10:06 PM Performed by: Mayda Catherine MD Authorized by: Mayda Catherine MD Consent: Consent obtained: Verbal Consent given by: Patient Risks discussed: Infection Alternatives discussed: No treatment Vance protocol: Patient identity confirmed: Verbally with patient [...] Procedure completion: Tolerated well, no immediate complications Mayda Catherine MD IN CLINIC/BEDSIDE ORDERABLES Final Result * ECG-Annotated (02/21/2025) us Provider Onbase MD ECG ORDERABLES Final Result * (ABNORMAL) Basic metabolic panel (02/20/2025 8:40 PM EDT) Sodium 132(L) 133 - 145 mmol/L LAB CHEMISTRY METHOD 02/20/2025 9:13 PM [facility] Potassium 3.9 3.5 - 5.5 mmol/L LAB CHEMISTRY METHOD 02/20/2025 9:13 PM [facility] Comment:Hemolysis present Chloride 96 96 - 110 mmol/L LAB CHEMISTRY METHOD 02/20/2025 9:13 PM [facility] CO2 31 21 - 32 mmol/L LAB CHEMISTRY METHOD 02/20/2025 9:13 PM [facility] Anion Gap 5 3 - 11 LAB CHEMISTRY METHOD 02/20/2025 9:13 PM [facility] Glucose 148(H) 70 - 100 mg/dL LAB CHEMISTRY METHOD 02/20/2025 9:13 PM EDT [facility] BUN 20 5 - 25 mg/dL LAB CHEMISTRY METHOD 02/20/2025 9:13 PM EDT [facility] Creatinine 1.16 0.70 - 1.30 mg/dL LAB CHEMISTRY METHOD 02/20/2025 9:13 PM EDT [facility] eGFR 77 >=60 mL/min/1. 73m2 LAB CHEMISTRY METHOD 02/20/2025 9:13 PM EDT [facility] Comment:Calculation based on the Chronic Kidney Disease Epidemiology Collaboration (CKD-EPI) equation refit without adjustment for race. BUN/Creatinine Ratio 17.2 LAB CHEMISTRY METHOD 02/20/2025 9:13 PM EDT [facility] Calcium 8.1(L) 8.5 - 10.5 mg/dL LAB CHEMISTRY METHOD 02/20/2025 9:13 PM EDT [facility] Blood Venous blood specimen / Unknown Venipuncture / Unknown 02/20/2025 8:40 PM EDT 02/20/2025 8:48 PM EDT Maegan Aguilar DO LAB BLOOD ORDERABLES [place]ell Result [facility] [address] [place] [address], from Last 3 Months or Most Recently Relevant to Health Maintenance Insurance MEDICARE MEDICAID - [place] Advance Directives [...] currently active code status orders. Care Teams Soil Expert Relationship Specialty Start Date End Date Doretha Avilez MD [address] [place] [id number] PCP - General 11/20/22
== END 2025-05-24 11:56 | disposition home or self-care (01) ==
LOC: HO.HPS 11:19
PROVIDERS: PCP Internal Medicine; Visit Provider Internal Medicine
DX: G47.33 Obstructive sleep apnea (adult) (pediatric) (principal); J44.9 Chronic obstructive pulmonary disease, unspecified; J30.9 Allergic rhinitis, unspecified; E66.9 Obesity, unspecified
CPT/HCPCS: 99213

== ENCOUNTER → 2025-05-24 11:19 | Outpatient (BNVA) | payer MEDICARE, MEDICAID, SELFPAY | PROVIDERS: PCP Internal Medicine; Visit Provider Internal Medicine | DX: G47.33 Obstructive sleep apnea (adult) (pediatric) (principal); J44.9 Chronic obstructive pulmonary disease, unspecified; J30.9 Allergic rhinitis, unspecified; E66.9 Obesity, unspecified; Z99.89 Dependence on other enabling machines and devices | CPT/HCPCS: 99212 ==

== ENCOUNTER 2025-06-13 13:22 | Outpatient (AMB) | payer MEDICARE, MEDICAID, SELFPAY ==
--- NOTE | 2025-06-13 13:24 | MHC.OFFVIS ---
Intake Visit Reasons: Inj-Right ankle inj-last injection-03/10 Intake Note: Shubham is a 49 year old male who presents today for a right ankle injection, last injection on 03/10/25. Patient reports that he met with an ankle specialist and wanted to discuss with Frederick. States depending on conversation will determine if he is able to move forward with injection. Allergies codeine Allergy (Unknown, Verified 06/13/25 13:31) itching ibuprofen (IBUPROFEN) Allergy (Unknown, Verified 06/13/25 13:31) HIVES ketorolac Allergy (Unknown, Verified 06/13/25 13:31) swelling sumatriptan (From IMITREX) Allergy (Unknown, Verified 06/13/25 13:31) TACHYCARDIA bupropion (From Wellbutrin) Adverse Reaction (Severe, Verified 06/13/25 13:31) suicide thoughts prochlorperazine (From Compazine) Adverse Reaction (Unknown, Verified 06/13/25 13:31) Unknown Medication List - Last Reconciled 06/13/25 by Frederick Urbina PA-C [Ankle support brace As directed] celecoxib 200 mg PO BID empagliflozin (Jardiance) 10 mg PO DAILY ferrous sulfate 325 mg PO DAILY flu vac qs 2019(4 yr up)CD(PF) mL IM fluticasone furoate 100 mcg/actuation (Arnuity Ellipta) 1 inh inhalation DAILY fluticasone propionate 50 mcg/actuation (Flonase Allergy Relief) 1 spray intranasal Q12H furosemide 20 mg PO DAILY PRN furosemide 20 mg PO DAILY hyaluronate sodium, stabilized (Durolane) 60 mg (3 mL) intra-articular ONCE insulin lispro 1 sliding scale dose subcut USEASDIRECTD insulin lispro (Humalog KwikPen U-200 Insulin) subcut insulin syringe-needle U-100 As directed ipratropium-albuterol 0.5 mg-3 mg(2.5 mg base)/3 mL 3 mL inhalation QID 30 days lansoprazole 30 mg PO DAILY losartan 50 mg PO BID metoprolol succinate ER 25 mg PO DAILY pregabalin 150 mg PO TID pseudoephedrine HCl ER (Sudafed 12 Hour) 120 mg PO Q12H rosuvastatin 40 mg PO DAILY sacubitril-valsartan 24-26 mg (Entresto) 1 tab PO BID spironolactone 50 mg PO DAILY Ventolin HFA 90 mcg/actuation (albuterol sulfate) 2 puffs inhalation Q4-6H PRN NS HPI HPI Inj-Right ankle inj-last injection-03/10: Details: 49-year-old gentleman returns to the office today for a follow-up right ankle pain. Last injection was in February of this year. He was seen by [facility] foot and ankle specialist who recommended a special ankle brace which she had fit. He has yet to wear it for a prolonged time to see if it helps. They did not recommend frequent steroid injections of the right ankle due to continued joint degeneration. They also discussed ankle replacement versus fusion which would be a staged process but a lengthy recovery. Patient is not interested in surgery at this time. 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-inflammatories (nsaid) Obesity (BMI 35.0-39.9 without comorbidity) Bronchitis COPD (chronic obstructive pulmonary disease) Restrictive lung disease SABRINA (obstructive sleep apnea) Morbid obesity Social History Household Members: Significant Other Housing: House Alcohol intake: never Patient Tobacco Use Status: Never used Tobacco Current occupational status: disabled Current occupation: Lt handed Review of Systems Const All systems reviewed & are unremarkable except as noted in HPI and below Physical Exam Const General: cooperative and no acute distress Orientation/consciousness: patient oriented x3 Resp Effort & Inspection: normal respiratory effort and able to speak in complete sentences Cardio Peripheral pulses: Peripheral pulses 2+ throughout Neuro General: patient oriented x3 Extrem Other: Right ankle normal to inspection.? Significant tenderness over the medial and lateral joint of the ankle No tenderness over the syndesmosis. No significant swelling. No ankle instability. NVI .? Limited range of motion Office Procedures AMB Joint Injection/Aspiration Joint Injection/Aspiration Primary Site: right ankle Prep: site was prepped using aseptic technique, ethochloride spray was applied and injection warnings given Injected: 40 mg of, with 1 mL of, 1% plain lidocaine and decadron Procedure: The patient tolerated the procedure well and there was some relief with the local anesthesia Coding - Small Joint Procedure code (CPT) selection complete Assessment & Plan Assessment & Plan (1) Osteoarthritis of ankle, right: Code(s): M19.071 - Primary osteoarthritis, right ankle and foot Category: Medical Qualifiers: Osteoarthritis type: primary Qualified Code(s): M19.071 - Primary osteoarthritis, right ankle and foot Plan We discussed options today, which include steroid injection. The patient did consent to move forward with the right ankle injection, which was tolerated well. I recommended rest, ice, and elevation and OTC anti-inflammatories as needed for discomfort. We also discussed diabetes and the effect the steroid injection can have on their blood glucose levels; therefore, they will continue to monitor these very closely over the next 72 hours. If there are concerns, they should report to the ED immediately. I did explain I agree with the other provider we should space out the steroid injections as they are just going to worsen the arthritis. Patient is in agreement. Coding Level of Care Code Est Pt Level 3 (59223) Complex EM visit Add On G2211 Diagnoses Primary osteoarthritis of right ankle M19.071 Osteoarthritis type: primary CPT Codes Coding - 22072 - Small joint: 34228 - Small Joint ([id number])
--- OUTSIDE RECORDS SUMMARY | 2025-06-13 16:25 | XMS_ITS | Clinical Summary ---
Author Organization [facility] Address [address] [place] [address] Phone Care Team Providers Care Project Assistant Name Role Phone Doretha Avilez MD Primary Care Provider [phone] Allergies Active Allergy Reactions Criticality Noted Date [...] BY MOUTH ONCE DAILY 90 tablet 1 03/31/2025 Active lisinopril (PRINIVIL,ZESTR IL) 40 mg tablet Take 1 tablet (40 mg total) by mouth 1 (one) time each day. Active potassium citrate 99 mg capsule Take 99 mg by mouth 2 (two) times a day. Active Active Problems Problem Noted Date Diagnosed Date Syncope 01/17/2025 Heart failure with improved ejection fraction (HFimpEF) ([facility] V24, [facility] V28) 01/17/2025 Assessment & Plan (04/26/2025 7:00 PM EDT): The patient has heart failure with reduced ejection fraction. Etiology: Nonischemic Last ischemic work-up: 1. Nuclear stress test from February 2024 did not show any evidence of ischemia or infarct. Last documented LVEF: 1. Cardiac MRI from March 2024 showed an LVEF of 46%. 2. [facility] cardiology service note from 11/24/2024 states that the patient's echocardiogram done at [facility] showed an LVEF of 60% Current symptom classification: NYHA class 2 Guideline directed medical therapy: 1. Beta-blockers: None 2. ARNI / THO inhibitor / ARB: Lisinopril 40 mg orally daily 3. MRA: None 4. SGL2 inhibitor: Jardiance 10 mg orally daily Candidate for ICD or MINER ASSISTANT: The patient is not a candidate for an ICD or MINER ASSISTANT given LVEF Assessment and plan: The patient [...] being followed by different cardiology team at [facility]. It seems that they started the patient on an SGLT2 inhibitor (Jardiance) despite his history of diabetes mellitus type 1. According to the patient, this was done in consultation with his director of professional services in [place]. More recently, the patient has been having [...] he has a follow-up appointment with his director of professional services in [place] next week. I encouraged the patient to [...] encouraged the patient to discuss with his director of professional services whether he needs to undergo further evaluation to rule out the presence of hyperaldosteronism. In the meantime, I will arrange for the patient to complete a follow-up basic metabolic panel next week in order to make sure that his potassium level has remained in the normal range given that the patient is supplementing with [id number] potassium supplements. Orders: Basic metabolic panel; Future [...] care with the cardiology group at the [facility] cardiology service. Apparently, the patient was started on Jardiance 10 mg orally daily for treatment of his heart failure. As noted previously, the patient has diabetes mellitus type 1. The patient states that the initiation of Jardiance was done by the cardiology group at [facility] after consultation with the patient's new director of professional services at [facility] (Dr. Juliann Hayward). The patient states that he is fully aware of the increased risk of diabetes ketoacidosis with the use of Jardiance in a patient with diabetes type 1. The patient states that for this reason he was instructed by his director of professional services to check his ketone levels every day. On the other hand, the patient states that he is currently on lisinopril 20 mg orally daily and spironolactone 50 mg orally daily as part of the treatment of his heart failure. He is currently on these medications as recommended by his new cardiology team at [facility]. The patient states that with this regimen, his LVEF has improved as was apparently noted on a recent echocardiogram done at [facility]. Review of the [facility] cardiology service note from 11/24/2024 seems to verify this information given that the note states that the patient's echocardiogram done at [facility] showed an LVEF of 60%. Nevertheless, I do not have the report or the images of the echocardiogram at this point in order for me to review the study findings directly. During today's visit, we had an extensive conversation regarding the fact that the patient wishes to continue to see his new cardiology team at [facility] and he also wants to continue to [...] will also continue to follow with the [facility] cardiology service. I explained to the patient that his current medication regimen (lisinopril, Jardiance, and spironolactone) is being prescribed and managed by his cardiology team at [facility]. Therefore, I instructed the patient that he should continue to follow-up with the cardiology team at [facility] regarding the monitoring and management of these medications. The patient was also instructed to follow-up with his director of professional services at [facility] for continued management of his diabetes mellitus type 1 including the management of his diabetes medications. Encounters Date Type Department Care Team Description 04/26/2025 1:30 PM EDT Office Visit [facility] [address] [place] [address] Fco Ford MD Heart failure with improved ejection fraction (HFimpEF) ([facility], [facility] V28) (Primary Dx) 04/26/2025 Telephone [facility] [address] [place] [address] Fco Ford MD 04/26/2025 Telephone [facility] [address] [place] [address] Fco Ford MD 04/05/2025 Telephone [facility] [address] [place] [address] Fco Ford MD from Last 3 Months Immunizations Immunization Administration Dates Next Due Tdap Tetanus diptheria acell ular pertussis (Boostrix; Adacel) 7yo and older 03/03/2025 Surgical History Surgery Date Site/Laterality Comments HERNIA REPAIR PROCEDURE: HISTORICAL HERNIA REPAIR/UMB; COMMENT: as infant Medical History Medical History Date Comments Diabetes ([facility], [facility] V28) DX:Diabetes (HCC) HTN (hypertension) DX:HTN (hyper tension) Hypercholesteremia DX:Hyperchole steremia Neuropathy DX:Neuropathy;CO MMENT:diabetic Migraine DX:Migraine Depression DX:Depression History of herniated interve rtebral disc DX:History of herniated intervertebral disc Degenerative disc disease, lumbar DX:Degenerative disc disease, lumbar Diabetic neuropathy ([facility] V[facility], [facility] V28) DX:Diabetic neuropathy (HCC) Chronic low back pain DX:Chronic low back pain Migraine DX:Migraine Gastroparesis DX:Gastroparesis Depression DX:Depression Anxiety DX:Anxiety Hyperlipidemia LDL goal <100 DX: Hyperlipidemia LDL goal <100 HTN (hypertension), benign DX:HT N (hypertension), benign Asthma DX:Asthma Chronic painful diabetic kapil ropathy ([facility] V24, [facility] V28) DX:Chronic painful diabetic neuropathy (HCC) Gastroenteritis DX:Gastroenterit is Hx of hernia repair DX:Hx of her qing repair Obesity hypoventilation synd ike ([facility] V24, [facility] V28) DX:Obesity hypoventilation syndrome (HCC) Obstructive sleep apnea DX:Obstr uctive sleep apnea Insomnia DX:Insomnia 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 ([facility] V24, [facility] V28) DX:Controlled ty pe 1 diabetes with neuropathy (HCC) GERD (gastroesophageal reflux disease) DX:GERD (gastroesophageal reflux disease) Lower extremity edema DX:Lower e xtremity edema 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 ([facility] V24, [facility] V28) DX:Type 1 diabet es mellitus with diabetic neuropathy (HCC) Morbid obesity with BMI of 6 0.0-69.9, adult ([facility] V24, [facility] V28) 05/08/2021 DX:Morbid obesity wit h BMI of 60.0-69.9, adult ([facility]) Charcot's joint of ankle, right 05/08/2021 DX:Charcot's joint of ankle, right Heart failure with preserved ejection fraction ([facility] V24, [facility] V28) 02/22/2021 DX:Heart failure w ith [...] Description 08/01/2025 2:30 PM EST Office Visit [facility] [address] [place] [address] Fco Ford MD [address] [place] [address] [address] [place] [id number] Health Maintenance Due Date Last Done Comments Colorectal Cancer Screening: Colonoscopy 1975 Diabetes: Annual Foot Exam 1985 Diabetes: Annual Retina Eye Exam 1985 Hepatitis B Vaccines (1 of 3 - 19+ 3-dose series) 1994 HIV Screening 08/03/2022 Hepatitis C Screening 08/03/2022 Medicare Annual Wellness Visit 08/03/2022 Social Influencers of Health Screening 08/03/2022 Depression Screening 08/25/2024 COVID-19 Vaccine ( season) 2025 09/05/2022, 02/23/2022, 08/03/2021, Additional history [...] Procedure Name Priority Date/Time Associated Diagnosis Comments BASIC METABOLIC PANEL STAT 02/20/2025 8:40 PM EDT from Last 3 Months or Most Recently Relevant to Health Maintenance Results * (ABNORMAL) Basic metabolic panel (02/20/2025 8:40 PM EDT) Sodium 132(L) 133 - 145 mmol/L LAB CHEMISTRY METHOD 02/20/2025 9:13 PM [facility] Potassium 3.9 3.5 - 5.5 mmol/L LAB CHEMISTRY METHOD 02/20/2025 9:13 PM [facility] Comment:Hemolysis present Chloride 96 96 - 110 mmol/L LAB CHEMISTRY METHOD 02/20/2025 9:13 PM [facility] CO2 31 21 - 32 mmol/L LAB CHEMISTRY METHOD 02/20/2025 9:13 PM [facility] Anion Gap 5 3 - 11 LAB CHEMISTRY METHOD 02/20/2025 9:13 PM [facility] Glucose 148(H) 70 - 100 mg/dL LAB CHEMISTRY METHOD 02/20/2025 9:13 PM [facility] BUN 20 5 - 25 mg/dL LAB CHEMISTRY METHOD 02/20/2025 9:13 PM [facility] Creatinine 1.16 0.70 - 1.30 mg/dL LAB CHEMISTRY METHOD 02/20/2025 9:13 PM [facility] eGFR 77 >=60 mL/min/1. 73m2 LAB CHEMISTRY METHOD 02/20/2025 9:13 PM [facility] Comment:Calculation based on the Chronic Kidney Disease Epidemiology Collaboration (CKD-EPI) equation refit without adjustment for race. BUN/Creatinine Ratio 17.2 LAB CHEMISTRY METHOD 02/20/2025 9:13 PM [facility] Calcium 8.1(L) 8.5 - 10.5 mg/dL LAB CHEMISTRY METHOD 02/20/2025 9:13 PM [facility] Blood Venous blood specimen / Unknown Venipuncture / Unknown 02/20/2025 8:40 PM EDT 02/20/2025 8:48 PM EDT us Maegan Aguilar DO LAB BLOOD ORDERABLES Whit howell Result [facility] ([facility]) [facility] [address] [place] [address], [place] [phone] from Last 3 Months or Most Recently [...] currently active code status orders. Care Teams Project Assistant Relationship Specialty Start Date End Date Doretha Avilez MD [address] [place] [id number] PCP - General 11/20/22
--- OUTSIDE RECORDS SUMMARY | 2025-06-13 16:25 | XMS_ITS | Encounter Summary ---
Author Organization [facility] Address [address] [place] [address] Phone Care Team Providers Care Computer Forensic Specialist Name Role Phone Doretha Pablo MD Primary Care Provider Encounter Details Date Type Department Care Team (Late st Contact Info) Description 05/09/2025 Orders Only [facility] Medicine [address] [place] [address] Danuta Ribeiro [phone] [place] [address] [email or web address] Pain (Primary Dx) Social History Tobacco [...] Description 08/09/2025 1:00 PM EST Office Visit [facility] Department of Orthopaedic Surgery, Foot & Ankle Service [address] [place] [address] Raz Dickerson PA-C [address] [facility]-[address] [place] [id number] [email or web address] documented as of this encounter Results [...] pain documented in this encounter Care Teams Computer Forensic Specialist Relationship Specialty Start Date End Date Doretha Pablo MD [address] [place] [phone] PCP - General Internal Medicine 03/18/25 documented as of this encounter Additional Source Comments The information contained in this document represents components of the legal health record. It is not the complete legal health record.[facility]
--- OUTSIDE RECORDS SUMMARY | 2025-06-13 16:25 | XMS_ITS | Continuity of Care Document ---
Author Organization [facility] Address [address] [facility] [facility] [address] [place] [address] Phone [phone] Social History Type Date Description Comments Sex Male Sex Unknown Medical Devices Description No Information Available Encounters Description No Information Available Assessments Description No Information Available Plan of Treatment No Information Available Functional Status Description No Information Available Mental Status Description No Information Available Referrals Description No Information Available
--- OUTSIDE RECORDS SUMMARY | 2025-06-13 16:25 | XMS_ITS | Clinical Summary ---
Author Organization [facility] Address [address] [place] [address] Care Team Providers Care Military Technician Name Role Phone Unavailable Primary Care Provider [...]
--- OUTSIDE RECORDS SUMMARY | 2025-06-13 16:25 | XMS_ITS | Clinical Summary ---
Author Organization [facility] Address [address] [place] [address] Phone Care Team Providers Care Parachute Line Tier Name Role Phone Doretha Pablo MD Primary Care Provider [phone] Allergies Active Allergy Reactions Criticality Noted Date [...] 2 Refills, Maintenance, 04/05/25 1:01:00 PM EDT, [facility], 183, cm, 03/16/25 13:29:00 EDT, [...] 6 Refills, Maintenance, 02/05/25 10:20:00 AM EDT, [facility], 183, cm, 12/23/24 8:32:00 EDT, Height, 105.5, kg, 12/15/24 14:39:00 EDT, Dry Weight 02/06/20 25 Active BASAGLAR KWIKPEN U-100 INSULIN 100 unit/mL (3 mL) InPn injection pen See Instructions, INJECT 60 UNITS SUBCUTANEOUS INFUSION DAILY. USE IN CASE OF PUMP FAILURE TO INJECT 60 UNITS DAILY, # 15 mL, 11 Refills, Maintenance, 10/27/24 9:36:00 AM EST, [facility], 183, cm, 10/21/24 10:59:00 EST, [...] Description 05/10/2025 2:00 PM EDT Office Visit [facility] Department of Orthopaedic Surgery, Foot & Ankle Service [address] [place] [address] Raz Dickerson PA-C Arthritis of right ankle (Primary Dx); Chronic pain of left ankle; Pes planus of both feet; History of type 1 diabetes mellitus 05/10/2025 12:19 PM EDT - 05/10/2025 11:59 PM EDT Hospital Encounter [facility] - Diagnostic Radiology, [address] [place] [address] Raz Dickerson PA-C Discharge Disposition: Home or Self Care 05/09/2025 Orders Only [facility] Medicine [address] [place] [phone] Pimlott, Danuta Pain (Primary Dx) 04/05/2025 Transcribe Orders [facility] Orthopedics & Sports Medicine [address] [place] [phone] Doretha Pablo MD from Last 3 Months [...] 08/09/2025 1:00 PM EST Office Visit [facility] Department of Orthopaedic Surgery, Foot & Ankle Service [address] [place] [address] Raz Dickerson PA-C [address] [facility] [place] [phone] [email or web address] Health Maintenance Due Date Last Done [...] Months Insurance MEDICARE PART A & B [employer] MEDICARE PART A & B Member Subscriber Plan / Payer ( fective 1999-) Name:Shubham Pappas Member ID:[id number] Relation to Subscriber:Self Name:Shubham Pappas Subscriber ID:[id number] Payer ID:[id number] Group ID:Not on file Type:Medicare Address: [employer] [id number] [facility] B [employer] [facility] MEDICARE [facility] A & B [facility] B [employer] [facility] [facility] MEDICARE PART A & B [employer] [facility] MEDICARE PART A & B [employer] MEDICARE PART A & B [employer] MEDICARE PART A & B [employer] Care Teams Parachute Line Tier Relationship Specialty Start Date End Date Doretha Pablo MD [address] [place] [phone] PCP - General Internal Medicine 03/18/25 Additional Source Comments The information contained in this document represents components of the legal health record. It is not the complete legal health record.[facility]
--- OUTSIDE RECORDS SUMMARY | 2025-06-13 16:25 | XMS_ITS | Clinical Summary ---
Author Organization [facility] Address [address] [address] Phone Care Team Providers Care Food Server Name Role Phone Doretha Pablo MD Primary Care Provider [phone] Allergies Active Allergy Reactions Criticality Noted Date [...] Office Visit [facility] [address] [phone] Romario Gifford MD [address] [address] Health Maintenance Due Date Last [...] PCV21) 2025 06/21/2015, 08/27/2006, 10/28/2005 [place] Care Teams Food Server Relationship Specialty Start Date End Date Doretha Pablo MD [address], [facility] [address] [place] [address] PCP - General Internal Medicine 08/28/23
--- OUTSIDE RECORDS SUMMARY | 2025-06-13 16:26 | XMS_ITS | Clinical Summary ---
Author Organization [facility] Address [address] [place] [address] Care Team Providers Care Ticket Printer Name Role Phone Unavailable Primary Care Provider [...]
--- OUTSIDE RECORDS SUMMARY | 2025-06-13 16:26 | XMS_ITS | Clinical Summary ---
Author Organization [facility] Address [address] [place] [address] Care Team Providers Care Non Destructive Testing Inspector Name Role Phone Unavailable Primary Care [...]
== END 2025-06-13 14:38 | disposition home or self-care (01) ==
LOC: HO.HOS 13:23
PROVIDERS: PCP Internal Medicine; Visit Provider Physician Assistant
DX: M19.071 Primary osteoarthritis, right ankle and foot (principal)
CPT/HCPCS: 20605; 99213

== ENCOUNTER → 2025-06-13 13:22 | Outpatient (BNVA) | payer MEDICARE, MEDICAID, SELFPAY | PROVIDERS: PCP Internal Medicine; Visit Provider Physician Assistant | DX: M19.071 Primary osteoarthritis, right ankle and foot (principal) | CPT/HCPCS: 20605; 99212; J1100; J2003 ==

== ENCOUNTER 2025-07-06 10:57 | Outpatient (AMB) | payer MEDICARE, MEDICAID, SELFPAY ==
[2025-07-06 11:18] VITALS: BP 130/72; PULSE 73; O2SAT 100; BMI 32.6
--- NOTE | 2025-07-06 11:18 | A.OFFVIS_ITS ---
Vital Signs 07/06/25 11:18 Height 6 ft Weight 240 lb 4.862 oz BMI 32.6 BP 130/72 Blood Pressure Location Lt brachial Position Sitting Pulse 73 Pulse Source Pulse Oximeter Pulse Oximetry (%) 100 Oxygen Delivery Method Room Air Intake Visit Reasons: Obstructive sleep apnea Intake Note: pt is here for follow up and states he is doing well with cpap, cold affects him. Eligibility Consultant Required: No Benefits Director: Benefits Director offered & declined Allergies codeine Allergy (Unknown, Verified 07/06/25 11:42) itching ibuprofen (IBUPROFEN) Allergy (Unknown, Verified 07/06/25 11:42) HIVES ketorolac Allergy (Unknown, Verified 07/06/25 11:42) swelling sumatriptan (From IMITREX) Allergy (Unknown, Verified 07/06/25 11:42) TACHYCARDIA bupropion (From Wellbutrin) Adverse Reaction (Severe, Verified 07/06/25 11:42) suicide thoughts prochlorperazine (From Compazine) Adverse Reaction (Unknown, Verified 07/06/25 11:42) Unknown Medication List - Last Reconciled 07/06/25 by Amish Smith MD [Ankle support brace As directed] celecoxib 200 mg PO BID empagliflozin (Jardiance) 10 mg PO DAILY ferrous sulfate 325 mg PO DAILY flu vac qs 2019(4 yr up)CD(PF) mL IM fluticasone furoate 100 mcg/actuation (Arnuity Ellipta) 1 inh inhalation DAILY fluticasone propionate 50 mcg/actuation (Flonase Allergy Relief) 1 spray intranasal Q12H furosemide 20 mg PO DAILY PRN furosemide 20 mg PO DAILY hyaluronate sodium, stabilized (Durolane) 60 mg (3 mL) intra-articular ONCE insulin lispro 1 sliding scale dose subcut USEASDIRECTD insulin lispro (Humalog KwikPen U-200 Insulin) subcut insulin syringe-needle U-100 As directed ipratropium-albuterol 0.5 mg-3 mg(2.5 mg base)/3 mL 3 mL inhalation QID 30 days lansoprazole 30 mg PO DAILY losartan 50 mg PO BID metoprolol succinate ER 25 mg PO DAILY pregabalin 150 mg PO TID pseudoephedrine HCl ER (Sudafed 12 Hour) 120 mg PO Q12H rosuvastatin 40 mg PO DAILY sacubitril-valsartan 24-26 mg (Entresto) 1 tab PO BID spironolactone 50 mg PO DAILY Ventolin HFA 90 mcg/actuation (albuterol sulfate) 2 puffs PO Q4-6H PRN NS Do you need a note to return to daycare/school/sports/work: No HPI HPI Obstructive sleep apnea: Details: CHRISTOFER IS 49 YEARS OLD VERY PLEASANT GENTLEMAN WHO IS HERE FOR FOLLOW-UP FOR HIS SLEEP APNEA AND BREATHING ISSUES. HE USES CPAP VERY REGULARLY EVERY NIGHT WITH NASAL PILLOWS AND PRESSURE OF 10 CM. HE DOES HAVE PROBLEM WITH MOUTH BREATHING AND DRY MOUTH BUT IT IS NOT INTERFERING WITH HIS USE OF CPAP. BREATHING HAS REMAINED VERY STABLE WITH USE OF ARNUITY ELLIPTA ONCE A DAY. AND VENTOLIN 2 PUFFS Q 6 HOURS ONLY P.R.N.. HE ALSO HAS THE NEBULIZER AT HOME WITH THE IPRATROPIUM-ALBUTEROL SOLUTION, USING 3 TIMES A DAY , ONLY ON THE DAYS WHEN IT IS NEEDED. NASAL ALLERGIES ARE CONTROLLED WITH THE USE OF FLONASE AND PSEUDO EPHEDRINE 120 MG Q 12 HOURS ONLY P.R.N. , ALWAYS REMAINS IN VERY GOOD SPIRITS. [facility] Medical History Allergic rhinitis skilled nursing (current) use of non-steroidal anti-inflammatories (nsaid) Obesity (BMI 35.0-39.9 without comorbidity) Bronchitis COPD (chronic obstructive pulmonary disease) Restrictive lung disease SABRINA (obstructive sleep apnea) Morbid obesity Social History Household Members: Significant Other Housing: House Alcohol intake: never Patient Tobacco Use Status: Never used Tobacco Current occupational status: disabled Current occupation: Lt handed Review of Systems Const All systems reviewed & are unremarkable except as noted in HPI and below Eyes Reports no additional complaints ENT Details: reports bloody nose upon removal of CPAP each morning Reports nasal discharge and Reports post nasal drip Card Denies chest pain, Denies irregular heart rhythm and Denies leg edema Resp Reports as per HPI GI Reports no additional complaints Reports no additional complaints Musc Reports back pain and Reports muscle weakness Skin/Breast Reports system reviewed and no additional complaints, except as documented Neuro Reports Neuro-related abnormal movements and Reports other (Case of posttraumatic paraparesis) Psych Reports no additional complaints Endo Reports other (Diabetes mellitus with labile blood sugars) Physical Exam Vital Signs: Last Vital Signs Pulse 73 07/06/25 11:18 BP 130/72 07/06/25 11:18 Pulse Ox 100 07/06/25 11:18 Oxygen Delivery Method Room Air 07/06/25 11:18 BMI result Body Mass Index 32.6 Const General: comfortable, no acute distress, alert and awake Orientation/consciousness: patient oriented x3 HEENT Head: Yes normal to inspection General nose exam: No nasal polyps present and No nasal discharge present Face and sinus: Yes other (BILTERAL ATROPHIC RHINITIS) Mouth: oropharynx abnormals (Very crowded, Mallampati class 4) Throat: Yes posterior oropharynx normal Eyes General: appearance normal, both eyes and all related structures Neck Neck: Yes normal visual inspection, Yes no lymphadenopathy, Yes trachea midline, Yes no JVD and Yes other (Short and obese) Thyroid: Thyroid normal Chest Chest palpation & inspection: normal inspection of the chest, normal palpation of entire chest wall and no tenderness Resp Other: Percussion note resonant, breath sounds are distant and especially decreased over the bibasilar areas. No wheezes, rhonchi or crepitations are heard today. He has relatively small lung volumes but both lungs are clear. Cardio Palpation: normal PMI Rate: regular rate Rhythm: regular rhythm Heart sounds: no gallops and no murmurs GI Palpation (GI): Soft to palpation, nontender, No hepatosplenomegaly present, no masses and Other GI palpation findings present (Abdomen is quite obese and protuberant) Auscultation: normal bowel sounds Back/Spine/Pelvis Thoracic/Lumbar Spine: thoracic and lumbar spine normal to inspection Skin General skin exam: no rashes or lesions noted Neuro General: patient oriented x3, No gait normal (Not able to walk,he uses quad cane in the house,motorized chair for outdoor) and no focal motor deficits Cranial nerves: Yes CN's II-XII intact bilaterally Extrem General: Yes normal to inspection, Yes no calf tenderness and Yes edema (Mild dependent edema of the legs) Psych Appearance: grossly normal and well kempt Speech and movement: Normal speech and movement present Results Reviewed Results Reviewed: COMPLIANCE REPORT. IS REVIEWED FOR THE LAST 30 NIGHTS HE USES 30/30 NIGHTS, 100%. AND AVERAGE USAGE PER NIGHT 7 HOURS 33 MINUTES WHICH IS EXCELLENT. THERE IS NO SIGNIFICANT AIR LEAK. BUT HE DOES HAVE RESIDUAL AHI OF 2.6. HE REPORTS THAT HE STILL SNORES OFF AND ON DURING THE NIGHTTIME, HE TENDS TO BE MOUTH BREATHER. Assessment & Plan Assessment & Plan (1) COPD (chronic obstructive pulmonary disease): Comment: He carries diagnosis of mild bronchial asthma/COPD, but it seems to be well controlled at this time. Code(s): J44.9 - Chronic obstructive pulmonary disease, unspecified Category: Medical Plan: CONTINUE USING ARNUITY ELLIPTA 1 INHALATION DAILY IPRATROPIUM-ALBUTEROL SOLUTION IN THE NEBULIZER Q I.D. PRN VENTOLIN HFA 2 PUFFS Q 4-6 HOURS PRN. (2) Restrictive lung disease: Comment: SECONDARY TO MORBID OBESITY, WITH SIGNIFICANT WEIGHT LOSS HIS RESTRICTIVE COMPONENT HAS IMPROVED . BMI DOWN TO 32.5 PREVIOUS SPIROMETRY SHOWS THAT HIS FVC IS NORMAL. Code(s): J98.4 - Other disorders of lung Category: Medical Plan: CONTINUE TO LOSE WEIGHT AND DO DEEP BREATHING EXERCISES 3 TIMES A DAY (3) SABRINA (obstructive sleep apnea): Comment: KNOWN CASE OF SEVERE SABRINA . HE IS VERY HAPPY AND DOING WELL WITH CPAP, WITH PRESSURE OF 10 CM. COMPLIANCE IS VERY GOOD Patient with ALLERGIC rhinitis, and does get some nasal congestion during the night. COMPLAINS OF BOUTS OF SNORING AT NIGHT, HE TRIES TO AVOID SLEEPING IN SUPINE POSITION. HE IS A MOUTH BREATHER BUT CAN NOT USE FULLFACE MASK. Code(s): G47.33 - Obstructive sleep apnea (adult) (pediatric) Category: Medical Plan: ADVISED TO USE HUMIDIFICATION REGULARLY WE WILL ADJUST THE PRESSURE TO 12 CM AND SEE IF THIS WOULD ELIMINATE IS SNORING. (4) Obesity (BMI 35.0-39.9 without comorbidity): Comment: He has history of morbid obesity but over the last few years he has gradually lost more than 100 lb of weight. He is a known to have gastro paresis, and is not able to eat large portions of food at a time. He continues to lose weight, slowly Code(s): E66.9 - Obesity, unspecified Category: Medical Plan: COMMENDED FOR LOSING WEIGHT AND ENCOURAGED TO CONTINUE WITH DIETARY RESTRICTION (5) Allergic rhinitis: Comment: He has chronic nasal congestion with postnasal drip. Controlled with use of Flonase and also he uses, pseudo ephedrine 120 mg Q 12 hours almost on a regular basis. He is aware that Sudafed will raise his blood pressure but I current blood pressure regimen has been titrated due to his daily Sudafed use. Code(s): J30.9 - Allergic rhinitis, unspecified Category: Medical Plan: USE PSEUDOEPHEDRINE 120 MG Q.12 HOURS PRN Coding Level of Care Code Est Pt Level 3 (15604) Diagnoses COPD (chronic obstructive pulmonary disease) J44.9 Restrictive lung disease J98.4 SABRINA (obstructive sleep apnea) G47.33 Obesity (BMI 35.0-39.9 without comorbidity) E66.9 Allergic rhinitis J30.9
--- OUTSIDE RECORDS SUMMARY | 2025-07-06 13:29 | XMS_ITS | Clinical Summary ---
Author Organization [facility] Address [address] [address] Phone Care Team Providers Care Metal Bed Assembler Name Role Phone Doretha Pablo MD Primary Care Provider [phone] Allergies Active Allergy Reactions Criticality Noted Date [...] Office Visit [facility] [address] [phone] Romario Gifford MD [address] [address] Health Maintenance Due Date Last [...] PCV21) 2025 06/21/2015, 08/27/2006, 10/28/2005 [place] Care Teams Metal Bed Assembler Relationship Specialty Start Date End Date Doretha Pablo MD [address], [facility] [address] [place] [address] PCP - General Internal Medicine 08/28/23
--- OUTSIDE RECORDS SUMMARY | 2025-07-06 13:30 | XMS_ITS | Data Portability ---
Author Organization [place] [facility] Address [facility] [place] [address] Care Team Providers Care Circular Head Saw Operator Name Role Phone HIMANSHULizabeth LATONYA Primary Care Provider JOHANNY ARCEO Primary Care Provider RYLEY RODRIGUEZ OTHER LAVERNE TRINH Best Second Jobs Assessment Encounter Date Assessment Date Assessment LastModified [...] care were discussed with the Virtual Physician rn [facility], Dr. Rascon. Pt advised to take 40meq of Potassium daily in either a single or divided dose depending on tolerance. Pt has 20meq in the home at this time so script noted needed. Pt given voltran gel for his hip pain, pt's allergy to voltran is an intolerace related to senior care use of oral NSAIDs resulting in GIB. 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 We cannot always find the exact [...] in your condition between 8am-10pm, please call [facility] at [phone] to help navigate your care. In order [...] symptoms. Time On Scene with Patient: 00:37:26 [email or web address] Not available 11/04/2021 15:58:15 11/06/2021 11/06/2021 Proper Personal Protective Equipment (PPE), including gloves, eye protection and masks were donned and doffed appropriately and all equipment cleaned using approved technique with germicidal disposable wipes prior to and after care of this patient according to [facility]'s infection prevention protocols. Overview/History: 46 yo male [...] pertinent in my medical decision making today. [email or web address] Not available 11/06/2021 09:29:59 Plan of Treatment Reminders Order Date Submit Date Provider Last Modified By Organization Details Last Modified Time Details Appointments None recorded. Lab unlisted lab - covid-19 (novel coronavirus ) PCR 2021 022 [place] [address] [facility] (Centralized Electronic Ordering - All Locations), Patient Can Go To The Location Of Their Choice, [id number] 2 10:14:48 BMP + ionized calcium, serum or plasma 2020 [facility], [address] [place], [address], 17:17:37 BMP + ionized calcium, serum or plasma 2020 021 [facility] [address] [place], [address], 2 05:01:21 CBC w/ auto diff - Collected by Replaced by [facility] 2020 [facility] - [facility]), Patient Can Go To The Location Of Their Choice, [id number] 00:44:12 Referral None recorded. Procedures None recorded. Surgeries None recorded. Imaging XR, chest, 2 view - Ordered by Replaced by [facility] 2021 022 [facility] ([facility]), [address] [place], [address], 2 17:35:38 XR, foot, 3 or more view 2020 Critical access hospital [facility] ([facility]), [address] [place], [address], 1 08:03:17 Medication Orders prednisone 10 mg tablet 2021 022 [email or web address] Not available 16:27:12 prednisone 20 mg tablet 2021 022 esther z783 [facility], [address] [place], [place], [id number], 14:20:21 azithromyci n 250 mg tablet 2021 022 [facility] #35717, [address] [place], [place], [id number], 14:11:40 Voltaren Arthritis Pain 1 % topical gel 2020 021 [facility]50212, [address] [place], [place], [phone], 14:27:54 Patient TargetsNo targets recorded. Patient Instructions Encounter Date Encounter Id Patient Instructions Last Modified By Organization Details Last Modified Time 03/03/2021 [id number] gastroesophageal reflux disease (GERD): care instructions [email or web address] Not available 03/03/2021 14:03:36 Thank you for yo ur visit with [facility]. We cannot always find the exact cause of your symptoms during your initial visit. Your potassium level was found to be low at 2.9 on exam. Please take 40meq of Potassium daily either in a single dose or a divided dose for the next 3 days, starting today. [facility] will come out to reevaluate your potassium [...] condition between 8am-10pm, please call [facility] at [phone] to help navigate your care. [email or web address] Not [...] 12-17 [email or web address] Not available 03/03/2021 13:51:42 03/06/2021 [id number] WE CAME TO SEE Y OU TODAY [...] LABS IN A WEEK. PLEASE CALL YOUR SENIOR SYSTEMS ANALYST THEY ARE THE ONE THAT PRESCRIBES THE LASIX AND YOU MAY NEED TO BE ON IT SERVICE MANAGER POTASSIUM SUPPLEMENTS WHICH [facility] CANNOT PRESCRIBE- THIS WOULD NEED TO COME FROM EITHER PCP OR SENIOR SYSTEMS ANALYST [email or web address] Not available 03/06/2021 10:18:00 11/04/2021 [id number] cough: care instructions [email or web address] Not available 11/04/2021 14:08:13 You have been se en by [facility] for productive cough. Upon assessment we found abnormal lung sounds. Chest x-ray was ordered to rule out pneumonia. Covid 19 test pending and you will be contacted if results are positive. Prednisone and Azithromycin was faxed over to your pharmacy. Please follow up with PCP or seek emergency service with worsening of symptoms, shortness of breath, chest pain, fever over 105 degrees. [email or web address] Not available 11/04/2021 14:15:25 11/06/2021 [id number] Inhaler Instruct ions Before use, you need [...] after cleaning actually helps it work better. [email or web address] Not available 11/06/2021 08:56:33 Reason for Referral [...] Go To The Location Of Their Choice, [id number] 03/04/2021 00:44:12 03/03/2003/04/2021 COMPL ETE CBC WITH DIFF eo 2.1 % (0-6) Not Available [facility] (Centralized Electronic Ordering - All Locations) Patient Can Go To The Location Of Their Choice, [id number] 03/04/2021 00:44:12 03/03/2003/04/2021 COMPL ETE CBC WITH DIFF baso 0.3 % (0-2) Not Available [facility] (Centralized Electronic Ordering - All Locations) Patient Can Go To The Location Of Their Choice, [address] 03/04/2021 00:44:12 03/03/2003/04/2021 COMPL ETE CBC WITH DIFF imm gran 0.4 % Not Available [facility] (Centralized Electronic Ordering - All Locations) Patient Can Go To The Location Of Their Choice, [facility] [place] 03/04/2021 00:44:12 03/03/2003/03/2021 BMP + IONIZ ED CALCI UM, SERUM OR PLASM A glu 144 mg/dL 70-105 Not Available [facility] [place], [address], 03/03/2021 13:50:34 03/03/20 21 03/03/2021 BMP + IONIZ ED CALCI UM, SERUM OR PLASM A BUN 24 mg/dL 8-26 Not Available [facility] [address] [place], [address], 03/03/2021 13:50:34 03/03/20 21 03/03/2021 BMP + IONIZ ED CALCI UM, SERUM OR PLASM A crea 1.4 mg/dL 0.6-1. 3 Not Available [facility] [address] [place], [address], 03/03/2021 13:50:34 03/03/20 21 03/03/2021 BMP + IONIZ ED CALCI UM, SERUM OR PLASM A Na 138 mmol/ L 138-14 6 Not Available [address], [address], 03/03/2021 13:50:34 03/03/20 21 03/03/2021 BMP + IONIZ ED CALCI UM, SERUM OR PLASM A K 2.9 mmol/ L 3.5-4. 9 Not Available [address], [address], 03/03/2021 13:50:34 03/03/20 21 03/03/2021 BMP + IONIZ ED CALCI UM, SERUM OR PLASM A cL 91 mmol/ L 98-109 Not Available [address], [address], 03/03/2021 13:50:34 03/03/20 21 03/03/2021 BMP + IONIZ ED CALCI UM, SERUM OR PLASM A TCO2 31 mmol/ L 24-29 Not Available [address], [address], 03/03/2021 13:50:34 03/03/20 21 03/03/2021 BMP + IONIZ ED CALCI UM, SERUM OR PLASM A angap 20 mmol/ L 10-20 Not Available [address], [address], 03/03/2021 13:50:34 03/03/20 21 03/03/2021 BMP + IONIZ ED CALCI UM, SERUM OR PLASM A ica 1.23 mmol/ L 1.12-1 .32 Not Available [address], [address], 03/03/2021 13:50:34 03/03/20 21 03/03/2021 BMP + IONIZ ED CALCI UM, SERUM OR PLASM A HCT 40 %pcv 38-51 Not Available [address], [address], 03/03/2021 13:50:34 03/03/20 21 03/03/2021 BMP + IONIZ ED CALCI UM, SERUM OR PLASM A Hb 13.6 g/dL 12-17 Not Available [address], [address], 03/03/2021 13:50:34 03/06/20 21 03/06/2021 BMP + IONIZ ED CALCI UM, SERUM OR PLASM A glu 183 mg/dL 70-105 Not Available [address], [address], 03/08/2021 17:17:37 03/06/20 21 03/06/2021 BMP + IONIZ ED CALCI UM, SERUM OR PLASM A BUN 19 mg/dL 8-26 Not Available [address], [address], 03/08/2021 17:17:37 03/06/20 21 03/06/2021 BMP + IONIZ ED CALCI UM, SERUM OR PLASM A crea 1.2 mg/dL 0.6-1. 3 Not Available [address], [address], 03/08/2021 17:17:37 03/06/20 21 03/06/2021 BMP + IONIZ ED CALCI UM, SERUM OR PLASM A Na 138 mmol/ L 138-14 6 Not Available [address], [address], 03/08/2021 17:17:37 03/06/20 21 03/06/2021 BMP + IONIZ ED CALCI UM, SERUM OR PLASM A K 3.3 mmol/ L 3.5-4. 9 Not Available [address], [address], 03/08/2021 17:17:37 03/06/20 21 03/06/2021 BMP + IONIZ ED CALCI UM, SERUM OR PLASM A cL 91 mmol/ L 98-109 Not Available [address], [address], 03/08/2021 17:17:37 03/06/20 21 03/06/2021 BMP + IONIZ ED CALCI UM, SERUM OR PLASM A TCO2 31 mmol/ L 24-29 Not Available [address] [place], [address], 03/08/2021 17:17:37 03/06/20 21 03/06/2021 BMP + IONIZ ED CALCI UM, SERUM OR PLASM A angap 21 mmol/ L 10-20 Not Available [address], [address], 03/08/2021 17:17:37 03/06/20 21 03/06/2021 BMP + IONIZ ED CALCI UM, SERUM OR PLASM A ica 1.17 mmol/ L 1.12-1 .32 Not Available [address], [address], 03/08/2021 17:17:37 03/06/20 21 03/06/2021 BMP + IONIZ ED CALCI UM, SERUM OR PLASM A HCT 39 %pcv 38-51 Not Available [address] [place], [address], 03/08/2021 17:17:37 03/06/20 21 03/06/2021 BMP + IONIZ ED CALCI UM, SERUM OR PLASM A Hb 13.3 g/dL 12-17 Not Available [address], [address], 03/08/2021 17:17:37 11/05/19 22 11/06/2021 COVID -19 [...] ng. Resul t repor dottie to the [facility]. This test has been autho rized by the FDA under an Emerg ency Use Autho rizat ion (EUA) for use by autho rized labor atori es. Test perfo rmed by [facility] at the [facility] of [facility] and Annmarie claros, [address] [place] [address] . CLIA ID: [id number] , CAP: [id number] 96. Medic al Direc tor: Caitlin Wells, PhD FACMG (NOTE ) The [facility] SARS- CoV-2 Real- time Rever se Trans [...] limit ed to the [facility] Shamika Francis orfransisca at the [facility] which is certi fied under the Clini [...] Go To The Location Of Their Choice, [id number] 11/06/2021 09:19:20 03/15/20 21 XR, foot, 3 or more view No observ ation record ed. [facility] ([facility]) [address] [facility], [place], [address], 03/15/2021 08:28:37 11/05/19 22 11/04/2021 XR, chest [...] degene rative change s are seen. Conclu anadna: No acute cardio pulmon matti diseas e. The findin gs are improv ed from 25OCT 020. Electr onical ly signed by OSIRIS REYNOLDS D.O. 022 5:20:3 6 PM EDT. [email or web address] [employer] [facility] [address], [place], [address], 11/05/2021 11:18:22 Result Notes Documentation Provider Name [...] Address Organization Details Recorded Time Diabetes mellitus 61595765 Active [address] OLGU[address] NP [address], [place], [address], [place] [facility] 0 14:35:03 Problem Notes None recorded. Procedures Surgical History Date Name Laterality Status Provider Name and Address Organization Details Recorded Time 03/06/20 21 Venipuncture - DH completed DALIA URBINA NP [address], [place], [address], [place] [facility] 03/06/2021 10:30:22 03/03/20 21 Venipuncture - DH completed GABY APARICIO NP [address], [place], [address], [place] [facility] 03/03/2021 13:40:38 03/03/20 21 ECG Interpretation - completed GABY APARICIO NP [address], [place], [address], [place] [facility] 03/03/2021 14:30:14 06/20/20 20 Venipuncture - completed BOGDAN REHMAN [address], [place], [address], [place] [facility] 06/20/2020 15:33:27 06/17/20 20 Venipuncture - completed AVE OLGUIN NP [address] [place], [address], [place] [facility] 06/17/2020 15:04:05 Imaging Results None recorded. Procedure Notes None recorded. Medical Equipment None Reported. Allergies Allergen ID Allergen Name Allergen Category Reaction Reaction Severity Criticality Documentation Date Start Date Code Code System Note Provider Name and Address Organization Details Recorded Time 692005 Compazine medicatio n Not available Not available Not available 06/17/202066503 [address] OLGUIN NP [address] [place], [address], [place] [facility] 0 14:34:21 803729 Non-stero idal anti-infl ammatory agent (substanc e) medicatio n Not available Not available Not available 06/17/[address] OLGUIN NP [address], [place], [address], [place] [facility] 0 14:34:31 169726 Wellbutri n medicatio n Not available Not available Not available 06/17/[address] OLGUIN, LISA [address], [facility] [place], [address] , [place] [facility] 0 14:34:46 Medications Name Sig Start Date Stop Date Status Note LastModified by Organization Details LastModified Time [facility] ketamine 10% pain en APPLY [...] Available Not Available Not Available 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 Not Available Not Available Not Available [...] 82 /min 118/60 mm[Hg] Not Available [facility] 2 13:51:24 Date Recorded Respiratory rate Oxygen saturation Oxygen saturation in Arterial blood by Pulse oximetry Body temperature Heart rate Systolic And Diastolic Provider Name and Address Organization Details Last Updated DateTime 2 22 /min 93 % 93 % 98.4 [degF] 73 /min 136/82 mm[Hg] Not Available [facility] 2 08:52:26 Date Recorded Respiratory rate Oxygen saturation Oxygen saturation in Arterial blood by Pulse oximetry Body temperature Heart rate Systolic And Diastolic Provider Name and Address Organization Details Last Updated DateTime 1 22 /min 92 % 92 % 98.3 [degF] 88 /min 118/76 mm[Hg] Not Available [facility] 1 13:16:50 Date Recorded Heart rate Oxygen saturation Oxygen saturation in Arterial blood by Pulse oximetry Respiratory rate Body temperature Systolic And Diastolic Provider Name and Address Organization Details Last Updated DateTime 1 84 /min 97 % 97 % 18 /min 98.4 [degF] 132/78 mm[Hg] Not Available [facility] 1 10:02:01 Date Recorded Heart rate Oxygen saturation Oxygen saturation in Arterial blood by Pulse oximetry Body temperature Respiratory rate Systolic And Diastolic Provider Name and Address Organization Details Last Updated DateTime 1 84 /min 98 % 98 % 97.4 [degF] 22 /min 122/84 mm[Hg] Not Available [facility] 1 11:06:07 Social History Question Answer Notes LastModified by Organizat ion Details LastModified Time Tobacco Smoking Status Never Smoker BOGDAN REHMAN [facility] [place], [address], [place] [facility] 06/20/2020 11:40:47 What Is Your Code Status? Full Code [email or web address] Information not available 06/20/2020 Within The Past 12 Months, Has It Happened That The Food You Bought Just Didn't Last And You Didn't Have Money To Get More. No [email or web address] Information not available 06/20/2020 Within The Past 12 Months, Have You Worried That Your Food Would Run Out Before You Got Money To Buy More. No [email or web address] Information not available 06/20/2020 Fall Risk: Do You Feel Unsteady When Standing Or Walking? Yes [email or web address] Information not available 06/20/2020 We Know That How And When People Interact With Friends And Family Can Be Very Different From Person To Person. How Often Do You Have The Opportunity To See Or Talk To People That You Care About And Feel Close To? (Ex: Talking To Friends On The Phone Or Visiting Friends Or Family Or Going To Rastafari Or Club Meetings) 3 Or 4 Times Per Week [email or web address] Information not available 06/20/2020 We Know From Many Of Our Patients That Covering All Of Their Costs Can Be Difficult At Times. This Can Cause Stress And Impact Health. In The Past Year, Have You Been Unable To Get Any Of The Following When It Was Really Needed? No [email or web address] Information not available 06/20/2020 What Is Your Housing Situation Today? I Have Housing [email or web address] Information not available 06/20/2020 Would You Like Help Connecting To Resources? None [email or web address] Information not available 06/20/2020 Sex: Unknown Functional Status None recorded. Mental Status None recorded. Family History Nothing Reported. Medical History Condition Response Diabetes Y Coronary Artery Disease N High Cholesterol Y Pulmonary Embolism N Cancer N Hypertension Y Stroke N Asthma Y COPD N Depression Y Kidney Disease N Past Encounters Encounter ID Performer Location Encounter Start Date Encounter Closed Date Diagnosis/Indication Diagnosis SNOMED-CT Code Diagnosis ICD10 Code Diagnosis IMO Codes Diagnosis Note [id number] AVE OLGUIN NP [facility] [address] [facility] [place] [address] 06/17/2020 13:36:00 06/19/2020 01:01:28 Syncope 146742483 R55 Hypokalemia 40971241 E87 .6 Hypoxia 433159178 G47.34 [id number] BOGDAN REHMAN [facility] [address] [place] [address] 06/20/2020 11:22:36 06/21/2020 09:24:55 Pneumonia 531273954 J18.9 Hypokalemia 92674814 E87 .6 [id number] GABY APARICIO NP [facility] [address] [place] [address] 03/03/2021 13:10:48 03/06/2021 13:14:46 Hyperglycemia 98802165 R73.9 Type 1 [place] mellitus 07401749 E10.9 Pain of ri ght hip joint 2137845572 42440 M25.551 Neuropathy 495013248 G62 .9 Gastroesop hageal reflux disease 517877129 K21.9 Hypokalemia 13848807 E87 .6 [id number] DALIA URBINA NP [facility] [address] [place] [address] 03/06/2021 09:59:06 03/06/2021 14:11:50 Hypokalemia 79542135 E87.6 Type 1 [place] mellitus 52996698 E10.8 [id number] BOGDAN FORTUNE [facility] [address] [place] [address] 03/14/2021 10:59:36 03/15/2021 20:11:28 Sprain of interphalangeal joint of toe 34487093 S93.509A Hypokalemia 43954790 E87 .6 Gastroesop hageal reflux disease without esophagitis 930938741 K21.9 [id number] Melissa Guajardo NP [facility] [address] [place] [address] 11/04/2021 13:45:05 11/06/2021 19:57:33 Acute exacerbation of chronic obstructive pulmonary disease 891883492 J44.1 Cough 70137983 R05.1 Exposure t o communicable disease 255915680 Z20.822 [id number] BOGDAN Montiel [facility] [address] [place] [address] 11/06/2021 08:47:37 11/06/2021 19:57:43 Health Concerns Section Related Observation LastModified by Organization Detai ls LastModified Time None Recorded Concern Status LastModified by Organization Details LastModified Time None Recorded Advance Directives Directive None Recorded Payers Insurance Date Sequence Insurance Name Policy Number Policy Rodriguez Covered Member ID Rodriguez Member ID Guarantor Name 06/16/2020 1 *SELF PAY* Shubham Pappas [id number] Shubham Pappas 06/16/2020 1 [employer] (MEDICARE REPLACEMENT/A DVANTAGE - HMO) Shubham Pappas [id number] Shubham Pappas 11/06/2021 2 [place] [facility] Shubham Pappas [id number] Shubham Pappas 11/04/2021 1 [place]IC[place] B[place] [employer] Shubham Pappas [id number] Shubham Pappas Notes Date Note Type Note [...] the pain briefly. GABY APARICIO, LISA [address] [place], [address], [place] [facility] 03/03/2021 15:32:31 03/06/2021 text/html This is a 45-year-old male that [facility], new to this provider. His medical history significant for depression, diabetes, asthma, hyperlipidemia, hypertension and he reports good. He is no longer following with his primary care provider over a disagreement. He is not yet established care with a new PCP. He does have an appointment with endocrinology today. He was seen earlier this week by [facility] for complaints of hip pain and possible [...] 03/03 which was the last day that [facility] was out to see him. He went there with complaints of shortness of breath, he had a normal CT scan of the chest. He is also given muscle relaxers for his thigh pain and reassured that he did not show evidence of a blood clot. Case management at [facility] is supposed to also follow up with the patient to try and help him establish care with a PCP. DALIA URBINA NP [address], [place], [address], [place] [facility] 03/06/2021 12:02:59 03/14/2021 text/html 45 y/o M [...] his foot. BOGDAN FORTUNE [address], [place], [address], [place] [facility] 03/14/2021 12:08:27 11/04/2021 text/html General HPI Template [...] tested. Melissa Guajardo NP [address], [place], [address], [place] [facility] 11/04/2021 15:58:34 11/06/2021 text/html General HPI Template - DHReported by Patient 46 yo male [facility] ?COPD exac/acute bronchCXR [...] of intubation BOGDAN Montiel [address], [place], [address], [place] [facility] 11/06/2021 09:30:15
--- OUTSIDE RECORDS SUMMARY | 2025-07-06 13:30 | XMS_ITS | Continuity of Care Document ---
Author Organization [facility] Address [address] [facility] [address] [place] [address] Phone [phone] Social History Type Date Description Comments Sex Male Sex Unknown Medical Devices Description No Information Available Encounters Description No Information Available Assessments Description No Information Available Plan of Treatment No Information Available Functional Status Description No Information Available Mental Status Description No Information Available Referrals Description No Information Available
--- OUTSIDE RECORDS SUMMARY | 2025-07-06 13:30 | XMS_ITS | Clinical Summary ---
Author Organization [facility] Address [address] [place] [address] Care Team Providers Care Facility Specialist Name Role Phone Unavailable Primary Care Provider [...]
--- OUTSIDE RECORDS SUMMARY | 2025-07-06 13:30 | XMS_ITS | Clinical Summary ---
Author Organization [facility] Address [address] [place] [address] Care Team Providers Care Cable Armorer Operator Name Role Phone Unavailable Primary Care [...]
--- OUTSIDE RECORDS SUMMARY | 2025-07-06 13:30 | XMS_ITS | Clinical Summary ---
Author Organization [facility] Address [address] [place] [address] Care Team Providers Care Litigation Support Analyst Name Role Phone Unavailable Primary Care Provider [...]
--- OUTSIDE RECORDS SUMMARY | 2025-07-06 13:30 | XMS_ITS | Data Portability ---
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 Shubham was recently seen at the [facility] Emergency room for an episode of near [...] ended up in the emergency room in [place] because his blood pressure was 70. He [...] Go To The Location Of Their Choice, [id number] 05/10/2025 14:21:35 BMP, serum or plasma 2024 025 [facility] (Centralized Electronic Ordering - All Locations), Patient Can Go To The Location Of Their Choice, [id number] 02/09/2025 00:05:24 BMP, serum or plasma 2024 025 [facility] (Centralized Electronic Ordering - All Locations), Patient Can Go To The Location Of Their Choice, [id number] 05/10/2025 14:21:52 BMP, serum or plasma 2024 025 [facility] (Centralized Electronic Ordering - All Locations), Patient Can Go To The Location Of Their Choice, [id number] 05/11/2025 03:04:54 Referral None recorded. Procedures None [...] DO Not Attach Compendium, Do Not Delete/merge, [id number] 12/20/2024 17:35:32 Medication Orders amlodipin e 2.5 mg tablet 2024 025 THIERRY [facility], [address] [place] [address], [id number], 05/13/2025 18:46:29 spironola ctone 25 mg tablet 2024 025 [email or web address] [facility], [address] [place] [address], [id number], 03/21/2025 17:04:58 lisinopri l 20 mg tablet 2024 025 [email or web address] [facility], [address] [place] [address], [id number], 01/27/2025 08:24:25 Patient TargetsNo targets recorded. Patient Instructions Encounter Date Encounter Id Patient Instructions Last Modified By Organization Details Last Modified Time 01/27/2025 [id number] learning about type 1 diabetes rwholey Not available 01/27/2025 10:28:37 type 1 diabetes: care instructions rwholey Not available 01/27/2025 10:28:37 03/07/2025 [id number] shortness of breath: care instructions rwholey Not available 03/07/2025 16:11:45 Reason for Referral None Reported. Results Created Date Observation Date Name Description Value Unit Range Abnormal Flag Note LastModifiedBy Organization Detail LastModifiedTime 11/20/1911/19/2024 BASIC METAB OLIC PANEL (8) glucose 78 mg/dL 70-99 normal Not Available [facility] ([facility]) [address] [place], [address], 11/20/2024 00:05:15 11/20/1911/19/2024 BASIC METAB OLIC PANEL (8) BUN 19 mg/dL 6-24 normal Not Available [facility] ([facility]) [address] [place], [address], 11/20/2024 00:05:15 11/20/19 25 11/19/2024 BASIC METAB OLIC PANEL (8) creatinine 1.12 mg/dL 0.76-1 .27 normal Not Available [facility] ([facility]) [address] [place], [address], 11/20/2024 00:05:15 11/20/19 25 11/19/2024 BASIC METAB OLIC PANEL (8) eGFR 81 mL/mi n/1.7 3 >59 normal Not Available [facility] ([facility]) [address] [place], [address], 11/20/2024 00:05:15 11/20/19 25 11/19/2024 BASIC METAB OLIC PANEL (8) BUN/creatini ne ratio 17 9-20 normal Not Available [facility] ([facility]) [address] [place], [address], 11/20/2024 00:05:15 11/20/19 25 11/19/2024 BASIC METAB OLIC PANEL (8) sodium 137 mmol/ L 134-14 4 normal Not Available [facility] ([facility]) [address] [place], [address], 11/20/2024 00:05:15 11/20/19 25 11/19/2024 BASIC METAB OLIC PANEL (8) potassium 5.1 mmol/ L 3.5-5. 2 normal Not Available [facility] ([facility]) [address] [place], [address], 11/20/2024 00:05:15 11/20/19 25 11/19/2024 BASIC METAB OLIC PANEL (8) chloride 101 mmol/ L 96-106 normal Not Available [facility] ([facility]) [address] [place], [address], 11/20/2024 00:05:15 11/20/19 25 11/19/2024 BASIC METAB OLIC PANEL (8) carbon dioxide, total 22 mmol/ L 20-29 normal Not Available [facility] ([facility]) [address] [facility], [place], [address], 11/20/2024 00:05:15 11/20/19 25 11/19/2024 BASIC METAB OLIC PANEL (8) calcium 9.7 mg/dL 8.7-10 .2 normal Not Available [facility] ([facility]) [address] [facility], [place], [address], 11/20/2024 00:05:15 12/08/19 25 12/08/2024 CHOL+ TRIG+ HDL+L DL-D cholesterol, total 116 mg/dL 100-19 9 normal Not Available [facility] ([facility]) [address] [place], [address], 12/08/2024 08:11:44 12/08/19 25 12/08/2024 CHOL+ TRIG+ HDL+L DL-D triglyceride s 91 mg/dL 0-149 normal Not Available [facility] ([facility]) [address] [facility], [place], [address], 12/08/2024 08:11:44 12/08/19 25 12/08/2024 CHOL+ TRIG+ HDL+L DL-D HDL cholesterol 49 mg/dL >39 normal Not Available [facility] ([facility]) [address] [place], [address], 12/08/2024 08:11:44 12/08/19 25 12/08/2024 CHOL+ TRIG+ HDL+L DL-D LDL chol. (direct) 55 mg/dL 0-99 Not Available [facility] ([facility]) [address] [place], [address], 12/08/2024 08:11:44 12/08/19 25 12/08/2024 CHOL+ TRIG+ HDL+L DL-D LDL direct comment: TODDLER GUIDE Not Available [facility] ([facility]) [address] [place], [address], 12/08/2024 08:11:44 12/08/19 25 12/08/2024 BASIC METAB OLIC PANEL (8) glucose 101 mg/dL 70-99 above high normal Not Available [facility] ([facility]) [address] [place], [address], 12/08/2024 08:11:44 12/08/19 25 12/08/2024 BASIC METAB OLIC PANEL (8) BUN 25 mg/dL 6-24 above high normal Not Available [facility] ([facility]) [address] [place], [address], 12/08/2024 08:11:44 12/08/19 25 12/08/2024 BASIC METAB OLIC PANEL (8) creatinine 1.07 mg/dL 0.76-1 .27 normal Not Available [facility] ([facility]) [address] [place], [address], 12/08/2024 08:11:44 12/08/19 25 12/08/2024 BASIC METAB OLIC PANEL (8) eGFR 85 mL/mi n/1.7 3 >59 normal Not Available [facility] ([facility]) [address] [place], [address], 12/08/2024 08:11:44 12/08/19 25 12/08/2024 BASIC METAB OLIC PANEL (8) BUN/creatini ne ratio 23 9-20 above high normal Not Available [facility] ([facility]) [address] [place], [address], 12/08/2024 08:11:44 12/08/19 25 12/08/2024 BASIC METAB OLIC PANEL (8) sodium 137 mmol/ L 134-14 4 normal Not Available [facility] ([facility]) [address] [place], [address], 12/08/2024 08:11:44 12/08/19 25 12/08/2024 BASIC METAB OLIC PANEL (8) potassium 4.1 mmol/ L 3.5-5. 2 normal Not Available [facility] ([facility]) [address] [place], [address], 12/08/2024 08:11:44 12/08/19 25 12/08/2024 BASIC METAB OLIC PANEL (8) chloride 97 mmol/ L 96-106 normal Not Available [facility] ([facility]) [address] [place], [address], 12/08/2024 08:11:44 12/08/19 25 12/08/2024 BASIC METAB OLIC PANEL (8) carbon dioxide, total 21 mmol/ L 20-29 normal Not Available [facility] ([facility]) [address] [place], [address], 12/08/2024 08:11:44 12/08/19 25 12/08/2024 BASIC METAB OLIC PANEL (8) calcium 9.9 mg/dL 8.7-10 .2 normal Not Available [facility] ([facility]) [address] [place], [address], 12/08/2024 08:11:44 12/08/19 25 12/08/2024 CK creatine kinase,total 305 U/L 49-439 normal Not Available [facility] ([facility]) [address] [place], [address], 12/08/2024 08:11:45 12/08/19 25 12/08/2024 AST (SGOT ) AST (SGOT) 29 IU/L 0-40 normal Not Available [facility] ([facility]) [address] [place], [address], 12/08/2024 08:11:45 12/08/19 25 12/08/2024 ALT (SGPT ) ALT (SGPT) 26 IU/L 0-44 normal Not Available [facility] ([facility] [address] [place], [address], 12/08/2024 08:11:46 02/09/20 25 02/08/2025 BASIC METAB OLIC PANEL (8) glucose 83 mg/dL 70-99 normal Not Available [facility] ([facility]) [address] [place], [address], 02/09/2025 00:05:24 02/09/20 25 02/08/2025 BASIC METAB OLIC PANEL (8) BUN 18 mg/dL 6-24 normal Not Available [facility] ([facility]) [address] [place], [address], 02/09/2025 00:05:24 02/09/20 25 02/08/2025 BASIC METAB OLIC PANEL (8) chloride 101 mmol/ L 96-106 normal Not Available [facility] ([facility]) [address] [place], [address], 02/09/2025 00:05:24 02/09/20 25 02/08/2025 BASIC METAB OLIC PANEL (8) carbon dioxide, total 25 mmol/ L 20-29 normal Not Available [facility] ([facility]) [address] [place], [address], 02/09/2025 00:05:24 02/09/20 25 02/08/2025 BASIC METAB OLIC PANEL (8) calcium 9.6 mg/dL 8.7-10 .2 normal Not Available [facility] ([facility]) [address] [place], [address], 02/09/2025 00:05:24 02/09/20 25 02/09/2025 BASIC METAB OLIC PANEL (8) creatinine 1.12 mg/dL 0.76-1 .27 normal Not Available [facility] ([facility]) [address] [place], [address], 02/09/2025 00:05:24 02/09/20 25 02/09/2025 BASIC METAB OLIC PANEL (8) eGFR 81 mL/mi n/1.7 3 >59 normal Not Available [facility] ([facility]) [address] [place], [address], 02/09/2025 00:05:24 02/09/20 25 02/09/2025 BASIC METAB OLIC PANEL (8) BUN/creatini ne ratio 16 9-20 normal Not Available [facility] ([facility]) [address] [place], [address], 02/09/2025 00:05:24 02/09/2002/09/2025 BASIC METAB OLIC PANEL (8) sodium 140 mmol/ L 134-14 4 normal Not Available [facility] ([facility]) [address] [place], [address], 02/09/2025 00:05:24 02/09/20 25 02/09/2025 BASIC METAB OLIC PANEL (8) potassium 4.7 mmol/ L 3.5-5. 2 normal Not Available [facility] ([facility]) [address] [place], [address], 02/09/2025 00:05:24 04/18/20 25 04/19/2025 BASIC METAB OLIC PANEL (8) glucose 104 mg/dL 70-99 above high normal Not Available [facility] ([facility]) [address] [place], [address], 04/19/2025 04:05:12 04/18/20 25 04/19/2025 BASIC METAB OLIC PANEL (8) BUN 15 mg/dL 6-24 normal Not Available [facility] ([facility]) [address] [place], [address], 04/19/2025 04:05:12 04/18/20 25 04/19/2025 BASIC METAB OLIC PANEL (8) creatinine 1.21 mg/dL 0.76-1 .27 normal Not Available [facility] ([facility]) [address] [facility], [place], [address], 04/19/2025 04:05:12 04/18/2004/19/2025 BASIC METAB OLIC PANEL (8) eGFR 73 mL/mi n/1.7 3 >59 normal Not Available [facility] ([facility]) [address] [facility], [place], [address], 04/19/2025 04:05:12 04/18/2004/19/2025 BASIC METAB OLIC PANEL (8) BUN/creatini ne ratio 12 9-20 normal Not Available [facility] ([facility] [address] [facility] [place], [address], 04/19/2025 04:05:12 04/18/2004/19/2025 BASIC METAB OLIC PANEL (8) sodium 139 mmol/ L 134-14 4 normal Not Available [facility] ([facility]) [address] [facility] [place], [address], 04/19/2025 04:05:12 04/18/2004/19/2025 BASIC METAB OLIC PANEL (8) potassium 4.0 mmol/ L 3.5-5. 2 normal Not Available [facility] ([facility]) [address] [facility], [place], [address], 04/19/2025 04:05:12 04/18/2004/19/2025 BASIC METAB OLIC PANEL (8) chloride 98 mmol/ L 96-106 normal Not Available [facility] ([facility] [address] [place], [address], 04/19/2025 04:05:12 04/18/2004/19/2025 BASIC METAB OLIC PANEL (8) carbon dioxide, total 25 mmol/ L 20-29 normal Not Available [facility] ([facility] [address] [facility] [place], [address], 04/19/2025 04:05:12 04/18/2004/19/2025 BASIC METAB OLIC PANEL (8) calcium 9.4 mg/dL 8.7-10 .2 normal Not Available [facility] ([facility]) [address] [facility], [place], [address], 04/19/2025 04:05:12 06/14/20 25 06/15/2025 FE+TI BC+FE R iron bind.cap.(TI BC) 295 ug/dL 250-45 0 normal Not Available [facility] ([facility]) [address] [facility], [place], [address], 06/15/2025 08:07:31 06/14/2006/15/2025 FE+TI BC+FE R UIBC 168 ug/dL 111-34 3 normal Not Available [facility] ([facility] [address] [facility], [place], [address], 06/15/2025 08:07:31 06/14/2006/15/2025 FE+TI BC+FE R iron 127 ug/dL 38-169 normal Not Available [facility] ([facility] [address] [place], [address], 06/15/2025 08:07:31 06/14/20 25 06/15/2025 FE+TI BC+FE R iron saturation 43 % 15-55 normal Not Available [facility] ([facility] [address] [place], [address], 06/15/2025 08:07:31 06/14/2006/15/2025 FE+TI BC+FE R ferritin 112 NG/mL 30-400 normal Not Available [facility] ([facility]) [address] [place], [address], 06/15/2025 08:07:31 06/14/20 25 06/14/2025 CBC WITH DIFFE RENTI AL/PL ATELE T WBC 9.8 x10e3 /uL 3.4-10 .8 normal Not Available [facility] ([facility]) [address] [facility], [place], [address], 06/15/2025 08:07:33 06/14/20 25 06/14/2025 CBC WITH DIFFE RENTI AL/PL ATELE T RBC 4.89 x10e6 /uL 4.14-5 .80 normal Not Available [facility] ([facility]) [address] [facility], [place], [address], 06/15/2025 08:07:33 06/14/20 25 06/14/2025 CBC WITH DIFFE RENTI AL/PL ATELE T hemoglobin 15.1 g/dL 13.0-1 7.7 normal Not Available [facility] ([facility]) [address] [facility], [place], [address], 06/15/2025 08:07:33 06/14/2006/14/2025 CBC WITH DIFFE RENTI AL/PL ATELE T hematocrit 44.2 % 37.5-5 1.0 normal Not Available [facility] ([facility]) [address] [facility], [place], [address], 06/15/2025 08:07:33 06/14/20 25 06/14/2025 CBC WITH DIFFE RENTI AL/PL ATELE T MCV 90 fL 79-97 normal Not Available [facility] ([facility]) [address] [place], [address], 06/15/2025 08:07:33 06/14/20 25 06/14/2025 CBC WITH DIFFE RENTI AL/PL ATELE T MCH 30.9 pg 26.6-3 3.0 normal Not Available [facility] ([facility]) [address] [facility], [place], [address], 06/15/2025 08:07:33 06/14/20 25 06/14/2025 CBC WITH DIFFE RENTI AL/PL ATELE T MCHC 34.2 g/dL 31.5-3 5.7 normal Not Available [facility] ([facility]) [address] [facility], [place], [address], 06/15/2025 08:07:33 06/14/20 25 06/14/2025 CBC WITH DIFFE RENTI AL/PL ATELE T RDW 12.1 % 11.6-1 5.4 Not Available [facility] ([facility]) [address] [facility], [place], [address], 06/15/2025 08:07:33 06/14/20 25 06/14/2025 CBC WITH DIFFE RENTI AL/PL ATELE T platelets 223 x10e3 /uL 150-45 0 normal Not Available [facility] ([facility] [address] [facility], [place], [address], 06/15/2025 08:07:33 06/14/20 25 06/14/2025 CBC WITH DIFFE RENTI AL/PL ATELE T neutrophils 62 % not estab. normal Not Available [facility] ([facility]) [address] [facility], [place], [address], 06/15/2025 08:07:33 06/14/20 25 06/14/2025 CBC WITH DIFFE RENTI AL/PL ATELE T lymphs 26 % not estab. normal Not Available [facility] ([facility]) [address] [facility], [place], [address], 06/15/2025 08:07:33 06/14/20 25 06/14/2025 CBC WITH DIFFE RENTI AL/PL ATELE T monocytes 11 % not estab. normal Not Available [facility] ([facility]) [address] [place], [address], 06/15/2025 08:07:33 06/14/20 25 06/14/2025 CBC WITH DIFFE RENTI AL/PL ATELE T eos 1 % not estab. normal Not Available [facility] ([facility]) [address] [facility], [place], [address], 06/15/2025 08:07:33 06/14/20 25 06/14/2025 CBC WITH DIFFE RENTI AL/PL ATELE T basos 0 % not estab. normal Not Available [facility] ([facility]) [address] [facility], [place], [address], 06/15/2025 08:07:33 06/14/20 25 06/14/2025 CBC WITH DIFFE RENTI AL/PL ATELE T immature cells TODDLER GUIDE Not Available [facility] ([facility]) [address] [facility], [place], [address], 06/15/2025 08:07:33 06/14/20 25 06/14/2025 CBC WITH DIFFE RENTI AL/PL ATELE T neutrophils (absolute) 6.1 x10e3 /uL 1.4-7. 0 normal Not Available [facility] ([facility]) [address] [facility], [place], [address], 06/15/2025 08:07:33 06/14/20 25 06/14/2025 CBC WITH DIFFE RENTI AL/PL ATELE T lymphs (absolute) 2.5 x10e3 /uL 0.7-3. 1 normal Not Available [facility] ([facility]) [address] [place], [address], 06/15/2025 08:07:33 06/14/20 25 06/14/2025 CBC WITH DIFFE RENTI AL/PL ATELE T monocytes(ab solute) 1.0 x10e3 /uL 0.1-0. 9 above high normal Not Available [facility] ([facility]) [address] [place], [address], 06/15/2025 08:07:33 06/14/20 25 06/14/2025 CBC WITH DIFFE RENTI AL/PL ATELE T eos (absolute) 0.1 x10e3 /uL 0.0-0. 4 normal Not Available [facility] ([facility] [address] [facility], [place], [address], 06/15/2025 08:07:33 06/14/20 25 06/14/2025 CBC WITH DIFFE RENTI AL/PL ATELE T baso (absolute) 0.0 x10e3 /uL 0.0-0. 2 normal Not Available [facility] ([facility] [address] [facility], [place], [address], 06/15/2025 08:07:33 06/14/20 25 06/14/2025 CBC WITH DIFFE RENTI AL/PL ATELE T immature granulocytes 0 % not estab. Not Available [facility] ([facility] [address] [facility], [place], [address], 06/15/2025 08:07:33 06/14/20 25 06/14/2025 CBC WITH DIFFE RENTI AL/PL ATELE T immature grans (abs) TODDLER GUIDE Not Available [facility] ([facility] [address] [facility], [place], [address], 06/15/2025 08:07:33 06/14/20 25 06/14/2025 CBC WITH DIFFE RENTI AL/PL ATELE T NRBC TODDLER GUIDE Not Available [facility] ([facility]) [address] [facility], [place], [address], 06/15/2025 08:07:33 06/14/20 25 06/14/2025 CBC WITH DIFFE RENTI AL/PL ATELE T hematology comments: TODDLER GUIDE Not Available [facility] ([facility]) [address] [facility], [place], [address], 06/15/2025 08:07:33 06/14/20 25 06/14/2025 COMP. METAB OLIC PANEL (14) glucose 62 mg/dL 70-99 below low normal Not Available [facility] ([facility]) [address] [facility], [place], [address], 06/15/2025 08:07:35 06/14/20 25 06/14/2025 COMP. METAB OLIC PANEL (14) BUN 20 mg/dL 6-24 normal Not Available [facility] ([facility]) [address] [facility], [place], [address], 06/15/2025 08:07:35 06/14/20 25 06/14/2025 COMP. METAB OLIC PANEL (14) creatinine 0.99 mg/dL 0.76-1 .27 normal Not Available [facility] ([facility]) [address] [facility], [place], [address], 06/15/2025 08:07:35 06/14/20 25 06/14/2025 COMP. METAB OLIC PANEL (14) eGFR 93 mL/mi n/1.7 3 >59 normal Not Available [facility] ([facility]) [address] [facility], [place], [address], 06/15/2025 08:07:35 06/14/20 25 06/14/2025 COMP. METAB [...] at [email or web address] org. Not Available [facility] ([facility]) [address] [facility], [place], [address], 06/15/2025 08:07:35 06/14/20 06/14/2025 COMP. METAB OLIC PANEL (14) BUN/creatini ne ratio 20 9-20 normal Not Available [facility] ([facility] [address] [place], [address], 06/15/2025 08:07:35 06/14/20 25 06/14/2025 COMP. METAB OLIC PANEL (14) sodium 138 mmol/ L 134-14 4 normal Not Available [facility] ([facility]) [address] [place], [address], 06/15/2025 08:07:35 06/14/20 25 06/14/2025 COMP. METAB OLIC PANEL (14) potassium 3.7 mmol/ L 3.5-5. 2 normal Not Available [facility] ([facility]) [address] [place], [address], 06/15/2025 08:07:35 06/14/20 25 06/14/2025 COMP. METAB OLIC PANEL (14) chloride 99 mmol/ L 96-106 normal Not Available [facility] ([facility]) [address] [place], [address], 06/15/2025 08:07:35 06/14/20 25 06/14/2025 COMP. METAB OLIC PANEL (14) carbon dioxide, total 28 mmol/ L 20-29 normal Not Available [facility] ([facility]) [address] [place], [address], 06/15/2025 08:07:35 06/14/20 25 06/14/2025 COMP. METAB OLIC PANEL (14) calcium 9.9 mg/dL 8.7-10 .2 normal Not Available [facility] ([facility] [address] [place], [address], 06/15/2025 08:07:35 06/14/20 25 06/14/2025 COMP. METAB OLIC PANEL (14) protein, total 6.7 g/dL 6.0-8. 5 normal Not Available [facility] ([facility]) [address] [place], [address], 06/15/2025 08:07:35 06/14/20 25 06/14/2025 COMP. METAB OLIC PANEL (14) albumin 4.4 g/dL 4.1-5. 1 normal Not Available [facility] ([facility]) [address] [facility], [place], [address], 06/15/2025 08:07:35 06/14/20 25 06/14/2025 COMP. METAB OLIC PANEL (14) globulin, total 2.3 g/dL 1.5-4. 5 Not Available [facility] ([facility]) [address] [facility], [place], [address], 06/15/2025 08:07:35 06/14/20 25 06/14/2025 COMP. METAB OLIC PANEL (14) bilirubin, total 0.5 mg/dL 0.0-1. 2 normal Not Available [facility] ([facility]) [address] [facility], [place], [address], 06/15/2025 08:07:35 06/14/20 25 06/14/2025 COMP. METAB OLIC PANEL (14) alkaline phosphatase 80 IU/L 47-123 normal Not Available [facility] ([facility] [address] [place], [address], 06/15/2025 08:07:35 06/14/20 25 06/14/2025 COMP. METAB OLIC PANEL (14) AST (SGOT) 25 IU/L 0-40 normal Not Available [facility] ([facility]) [address] [facility], [place], [address], 06/15/2025 08:07:35 06/14/20 25 06/14/2025 COMP. METAB OLIC PANEL (14) ALT (SGPT) 25 IU/L 0-44 normal Not Available [facility] ([facility]) [address] [facility], [place], [address], 06/15/2025 08:07:35 06/14/20 25 06/15/2025 VITAM IN [...] um and D. Jenny owen [place]: [facility] . 2. Reese ruiz MF, Charleen conley [place], Tae off-F errarslan i DENT, et al. Evalu ation , treat ment, and preve ntion of vitam in D defic iency : an Endoc rine Socie ty clini david pract ice guide line. JCEM. 2010; 96(7) :1911 -30. Not Available [facility] ([facility]) [address] [facility], [place], [address], 06/15/2025 08:07:37 06/14/20 25 06/14/2025 MAGNE SIUM magnesium 2.1 mg/dL 1.6-2. 3 normal Not Available [facility] ([facility]) [address] [facility], [place], [address], 06/15/2025 08:07:37 11/25/19 25 elect femi fuller am No observ ation record ed. [email or web address] In-Office Order Internal Use Only DO Not Attach Compendium DO Not Attach Compendium, Do Not Delete/merge, [id number] 11/24/2024 12:41:19 11/26/19 25 11/24/2024 elect rocar diogr am No observ ation record ed. BARCODE Not Available 2024 16:35:17 12/04/19 25 11/27/2024 cardi ac monit or No observ ation record ed. [facility] ([facility] [address], [place], [address], 12/06/2024 10:54:49 12/21/19 25 elect rocar diogr am No observ ation record ed. In-Office Order Internal Use Only DO Not Attach Compendium DO Not Attach Compendium, Do Not Delete/merge, [id number] 12/20/2024 15:15:50 12/22/19 25 12/20/2024 elect rocar diogr am No observ ation record ed. BARCODE Not Available 2024 10:23:56 01/28/20 25 elect rocar diogr am No observ ation record ed. [email or web address] In-Office Order Internal Use Only DO Not Attach Compendium DO Not Attach Compendium, Do Not Delete/merge, [id number] 01/27/2025 08:18:19 01/28/20 25 01/27/2025 elect rocar diogr am No observ ation record ed. BARCODE Not Available 2024 09:34:16 03/07/20 25 elect rocar diogr am No observ ation record ed. In-Office Order Internal Use Only DO Not Attach Compendium DO Not Attach Compendium, Do Not Delete/merge, [id number] 03/07/2025 14:19:45 03/07/20 25 03/07/2025 elect rocar diogr am No observ ation record ed. BARCODE Not Available 2024 17:52:14 05/13/20 25 elect rocar diogr am No observ ation record ed. [email or web address] In-Office Order Internal Use Only DO Not Attach Compendium DO Not Attach Compendium, Do Not Delete/merge, [id number] 05/13/2025 14:16:07 05/17/20 25 05/13/2025 elect rocar diogr am No observ ation record ed. [email or web address] Not Available 05/17 13:25:17 06/14/20 elect rocarslan diogr am No observ ation record ed. In-Office Order Internal Use Only DO Not Attach Compendium DO Not Attach Compendium, Do Not Delete/merge, [id number] 06/14/2025 10:44:40 06/15/20 25 06/14/2025 elect femi diogr am No observ ation record ed. [email or web address] Not Available 06/16 13:24:09 Result Notes None recorded. Problems Name Problem SNOMED Code Status Onset Date Resolution Date Notes Provider Name and Address Organization Details Recorded Time Obstructiv e sleep apnea syndrome [id number] Active on [facility] Cee Raygoza PA-C [address] [place] [address], [phone], [facility] 4 12:16:31 Mixed hyperlipid emia 620942358 Active 2023 Natasha aceves [facility] 4 15:20:19 Benign essential hypertensi on 2948520 Active 2023 Natasha aceves [facility] 4 15:20:19 Dyspnea 067203897 Active 2023 Natasha aceves [facility] 4 15:20:20 Chest pain 32503085 Active 2023 Natasha aceves [facility] 4 15:20:22 Chronic combined systolic and diastolic heart failure 404722099337 100 Active 2023 Natasha aceves [facility] 4 15:20:23 Type 1 diabetes mellitus 94438894 Active 2023 Cee Raygoza PA-C [address] [place] [address], [phone], [facility] 4 12:15:11 Chronic obstructiv e pulmonary disease 70277385 Active 2023 Cee Raygoza PA-C [address] [place] [address], [phone], [facility] 4 12:16:46 Problem Notes None recorded. Procedures Surgical History Date Name Laterality Status Provider Name and Address Organization Details Recorded Time Hernia Repair completed Laura Trivedi [facility] 03/01/2024 16:37:06 Imaging Results None recorded. Procedure Notes None recorded. Medical Equipment None Reported. Allergies Allergen ID Allergen Name Allergen Category Reaction Reaction Severity Criticality Documentation Date Start Date Code Code System Note Provider Name and Address Organization Details Recorded Time 506849 Compazine medicatio n Not available Not available Not available 03/01/202463972 6 RxNorm sever e muscl e spasm Laura Encarnacion [facility] 16:29:57 200087 Imitrex medicatio n Not available Not available Not available 03/01/2024 48150 3 [facility] 16:30[facility]08 744770 Motrin medicatio n Not available Not available Not available 03/01/202403895 8 RxNorm can' t take- harmf ul to my kidne ys Laura Encarnacion [facility] 4 16:30:51 439514 Non-stero idal anti-infl ammatory agent (substanc e) medicatio n other Not available Not available 03/01/2024 74971 5008 SNOMED Kortney Sevilla [facility] 4 12:49:07 631356 Toradol medicatio n Not available Not available Not available 03/01/2024 63276 RxNorm can' t take- harmf ul to my kidne kelly Encarnacion [facility] 16:31:19 701895 Wellbutri n medicatio n Not available Not available Not available 03/01/2024 64052 RxNorm suici daysi Laura Encarnacion [facility] 4 16:32:29 681991 codeine medicatio n itching Not available Not available 03/01/2024 2670 RxNorm [facility] 4 12:49:07 305026 ibuprofen medicatio n other Not available Not available 03/03/2024 5640 RxNorm [facility] 4 12:49:07 623250 POLLEN EXTRACTS environme nt,medica tion Not available Not available Not available 03/03/2024 15232 6 RxNorm [facility] 4 12:49:07 827137 cat dander environme nt Not available Not available Not available 03/03/2024 [facility] 4 12:49:07 375945 mold extract environme nt Not available Not available Not available 03/03/2024 66719 8 RxNorm [facility] 4 12:49:07 446585 cigarette smoke environme nt Not available Not available Not available 03/03/2024 Kortney Sevilla [facility] 4 12:49:07 809749 hydralazi ne medicatio n dizziness Not available Not available 05/09/2025 5470 RxNorm Laura Encarnacion [facility] 5 10:42:26 Medications Name Sig Start Date [...] Updated DateTime 12/20/2024 182.88 cm 18.1 kg/m2 34801.89 g 61 /min 150/84 mm[Hg] Geri Ortega [facility] 12/20/2024 15:32:59 Date Recorded Body height Body mass index (BMI) Body weight Heart rate Systolic And Diastolic Provider Name and Address Organization Details Last Updated DateTime 01/27/2025 182.88 cm 32.4 kg/m2 167990.2 9 g 57 /min 146/90 mm[Hg] [facility] 01/27/2025 08:29:38 Date Recorded Body height Body mass index (BMI) Body weight Oxygen saturation Oxygen saturation in Arterial blood by Pulse oximetry Heart rate Systolic And Diastolic Provider Name and Address Organization Details Last Updated DateTime 182.88 cm 32.5 kg/m2 559256. 45 g 97 % 97 % 69 /min 162/88 mm[Hg] [facility] 14:31:35 Date Recorded Systolic And Diastolic Provider Name and Address Organization Details Last Updated DateTime 05/13/2025 150/82 mm[Hg] Cee Raygoza PA-C [address] [place] [address], [phone], [facility] 05/13/2025 14:47:45 Date Recorded Body height Body mass index (BMI) Body weight Oxygen saturation Oxygen saturation in Arterial blood by Pulse oximetry Heart rate Systolic And Diastolic Provider Name and Address Organization Details Last Updated DateTime 182.88 cm 32.4 kg/m2 744140. 58 g 98 % 98 % 67 /min 173/94 mm[Hg] Zari Li [facility] 14:17:33 Date Recorded Systolic And Diastolic Provider Name and Address Organization Details Last Updated DateTime 06/14/2025 136/76 mm[Hg] Cee Raygoza PA-C [address] [place], [phone], [facility] 06/14/2025 11:15:55 Date Recorded Body height Body mass index (BMI) Body weight Heart rate Systolic And Diastolic Provider Name and Address Organization Details Last Updated DateTime 06/14/2025 182.88 cm 32.2 kg/m2 514728.7 9 g 66 /min 159/85 mm[Hg] Geri Ortega [facility] 06/14/2025 10:54:33 Social History Question Answer Notes LastModified by Organizat ion Details LastModified Time Tobacco Smoking Status Never Smoker [facility] 03/03/2024 12:49:23 Do You Have An Advance Directive? No Information not available 03/03/2024 Are You Blind Or Do You Have Difficulty Seeing? No [email or web address] Information not available 03/03/2024 Is Blood Transfusion Acceptable In An Emergency? Yes [email or web address] Information not available 03/03/2024 What Is Your Level Of Caffeine Consumption? Occasional Information not available 03/03/2024 Are You Deaf Or Do You Have Serious Difficulty Hearing? No [email or web address] Information not available 03/03/2024 What Type Of Diet Are You Following? SPECIFIC [email or web address] Information not available 03/03/2024 Which Of Your Hands Is Dominant? Left Information not available 03/03/2024 What Was The Date Of Your Most Recent Tobacco Screening? 06/14/2025 Information not available 06/14/2025 Do You Have Any Pets? Yes [email or web address] Information not available 03/03/2024 What Is Your Relationship Status? Single Information not available 03/03/2024 Has Tobacco Cessation Counseling Been Provided? No Information not available 11/05/2024 Sex: Unknown Functional Status Question Answer Note LastModified by Organizat ion Details LastModified Time Do you use any illicit or recreational drugs? No Information not available 10/19/2024 Do you or have you ever used any other forms of tobacco or nicotine? No [email or web address] Information not available 03/03/2024 What is your level of alcohol consumption? None [email or web address] Information not available 03/03/2024 Are you currently employed? No [email or web address] Information not available 03/03/2024 Are you able to care for yourself independently? No [email or web address] Information not available 03/03/2024 What is your exercise level? Occasional [email or web address] Information not available 03/03/2024 Mental Status Question Answer Note LastModified by Organization D etails LastModified Time Do you feel stressed (tense, restless, nervous, or anxious, or unable to sleep at night)? [id number] [email or web address] Information not available 11/24/2024 Family History Relationship Description Onset Age of this Age Resolved Age Notes LastModified by Organization Details LastModified Time Mother Depressive disorder Not available 2023 12:49:12 Unspecified Relation Malignant neoplasm of colon [email or web address] Not available 2023 12:49:12 Unspecified Relation Hyperlipidem ia [email or web address] Not available 2023 12:49:12 Maternal Grandmother Myocardial infarction [email or web address] Not available 03/03 12:49:12 Maternal Grandmother Family history of malignant neoplasm [email or web address] Not available 2023 12:49:12 Maternal Grandmother Hypertensive disorder [email or web address] Not available 2023 12:49:12 Maternal Grandfather Myocardial infarction [email or web address] Not available 03/03 12:49:12 Maternal Grandfather Cerebrovascu lar accident [email or web address] Not available 05/2024 12:49:12 Maternal Grandfather Diabetes mellitus [email or web address] Not available 2023 12:49:12 Father Depressive disorder [email or web address] Not available 2023 12:49:12 Father Diabetes mellitus [...] ICD10 Code Diagnosis IMO Codes Diagnosis Note [id number] Shubham Pineda MD [facility] [address] [place] [phone] 03/03/2024 12:39:58 03/03/2024 14:27:57 Chronic combined systolic and diastolic heart failure 6746201938 86863 I50.42 Chest pain 21697704 R07. 2 Dyspnea 666996758 R06.02 Benign ess ential hypertension 0130807 I10 Mixed hyperlipidemia 267 311262 E78.2 Type 2 [place] betes mellitus without complication 742068266 E11.9 [id number] Shubham Pineda MD [facility] [address] [place] [address] 05/31/2024 13:17:52 05/31/2024 14:35:17 Chronic diastolic heart failure 660607218 I50.32 Benign ess ential hypertension 1981566 I10 Mixed hyperlipidemia 267 970792 E78.2 Type 1 [place] betes mellitus 20528332 E10.9 Edema of l ower extremity 874338257 R60.0 [id number] Shubham Pineda MD [facility] [address] [place] [address] 07/12/2024 09:13:48 07/12/2024 12:10:27 Chronic combined systolic and diastolic heart failure 9956066730 56145 I50.42 STOP lisinopril 10mg tablets dailySTOP amlodipine 7.5mg tablets dailySTART Entresto 24-26mg tablet twice dailySTART Jardiance 10mg tablets dailyConti nue metoprolol succinate 25mg tablets at bedtime Benign ess ential hypertension 5826160 I10 Type 1 [place] betes mellitus 73805732 E10.9 Chronic ob structive pulmonary disease 28511979 J44.9 Mixed hyperlipidemia 267 863018 E78.2 Dyspnea 292772181 R06.00 History of syncope 42264 34801 37951 Z86.79 [id number] Shubham Pineda MD [facility] [address] [facility],[address] [address] 09/16/2024 14:58:36 09/16/2024 16:11:08 Chronic combined systolic and diastolic heart failure 7349093369 28308 I50.42 Benign ess ential hypertension 4380224 I10 Mixed hyperlipidemia 267 538866 E78.2 Chronic ob structive pulmonary disease 80011256 J44.9 Type 1 [place] betes mellitus 91409766 E10.9 Obstructiv e sleep apnea syndrome 26150379 G47.33 Syncope 048515281 R55 [id number] Shubham Pineda MD [facility] [address] [address] 10/19/2024 08:03:44 10/19/2024 10:50:35 Chronic combined systolic and diastolic heart failure 1769201042 17673 I50.42 STOP Entresto 0.5 tablets twice dailySTART losartan 12.5mg tablets in the AMContinue metoprolol succinate 12.5mg tablets at bedtime Benign ess ential hypertension 5837421 I10 Chronic ob structive pulmonary disease 97758566 J44.9 Mixed hyperlipidemia 267 872065 E78.2 Obstructiv e sleep apnea syndrome 48981156 G47.33 Type 1 [place] betes mellitus 03095865 E10.9 Increased thirst 3603152 03 R63.1 History of syncope 49505 37193 30880 Z86.79 [id number] Shubham Pineda MD [facility] [address] [facility],[address] [address] 11/05/2024 14:36:23 11/05/2024 15:32:06 Chronic combined systolic and diastolic heart failure 8335727151 84138 I50.42 Chronic ob structive pulmonary disease 09401657 J44.9 Benign ess ential hypertension 4011846 I10 Type 1 [place] betes mellitus 86234898 E10.9 Mixed hyperlipidemia 267 704107 E78.2 Edema of l ower extremity 735026943 R60.0 [id number] Shubham Pineda MD [facility] [address] [address] 11/24/2024 12:34:31 11/24/2024 13:26:09 Chronic combined systolic and diastolic heart failure 7344554307 95367 I50.42 Benign ess ential hypertension 2461418 I10 Mixed hyperlipidemia 267 092612 E78.2 Obstructiv e sleep apnea syndrome 23977042 G47.33 Type 1 [place] betes mellitus 92792555 E10.9 Hyperkalemia 82879986 E8 7.5 [id number] Shubham Pineda MD [facility] [address] [place] [address] 12/20/2024 15:06:18 12/20/2024 17:22:12 Benign essential hypertension 3668758 I10 STOP Losartan 50mg BIDSTART lisinopril 20mg tablets dailyConti nue spironolac tone 50mg tablets dailyConti nue metoprolol succinate 25mg tablets daily Chronic co mbined systolic and diastolic heart failure 8498728964 75732 I50.42 STOP Losartan 50mg BIDSTART lisinopril 20mg tablets dailyConti nue spironolac tone 50mg tablets dailyConti nue metoprolol succinate 25mg tablets dailyConti nue jardiance 10mg tablets daily Type 1 [place] betes mellitus 18453445 E10.9 Mixed hyperlipidemia 267 612986 E78.2 History of syncope 48800 78397 74007 Z86.79 Labile ess ential hypertension 646523019 I10 Fatigue 23013275 R53.83 [id number] Shubham Pineda MD [facility] [address] [address] 01/27/2025 08:09:54 01/27/2025 09:03:44 Benign essential hypertension 3521213 I10 Type 1 [place] betes mellitus 76970515 E10.9 Mixed hyperlipidemia 267 430498 E78.2 [id number] Shubham Pineda MD [facility] [address] [facility],[address] [place] [address] 03/07/2025 14:18:27 03/07/2025 15:46:25 Chronic combined systolic and diastolic heart failure 1374700835 78728 I50.42 Dilated cardiomyopathy 766076562 I42.0 96052 Dyspnea 495143568 R06.02 36551 [id number] Shubham Pineda MD [facility] [address] [facility],[address] [place] [address] 05/13/2025 13:48:54 05/13/2025 15:03:56 Benign essential hypertension 8586988 I10 Mixed hyperlipidemia 267 618644 E78.2 Type 1 [place] betes mellitus 92058962 E10.9 Chronic ob structive pulmonary disease 30152880 J44.9 Obstructiv e sleep apnea syndrome 71850444 G47.33 Edema of l ower extremity 698966547 R60.0 96320 [id number] Cee Raygoza PA-C [facility] [address] [facility] [address] [place] [address] 06/14/2025 10:44:18 06/14/2025 11:25:33 Benign essential hypertension 5211634 I10 Mixed hyperlipidemia 267 562340 E78.2 Chronic ob structive pulmonary disease 94755945 J44.9 Type 1 [place] betes mellitus 89220733 E10.9 Dilated cardiomyopathy 284392457 I42.0 21670 Fatigue 21220768 R53.83 [id number] Health Concerns Section Related Observation LastModified by Organization Detai ls LastModified Time None Recorded Concern Status LastModified by Organization Details LastModified Time None Recorded Advance Directives Directive N: Payers Insurance Date Sequence Insurance Name Policy Number Policy Rodriguez Covered Member ID Rodriguez Member ID Guarantor Name 06/14/2025 1 [place] [employer] Shubham Pappas [id number] Shubham Santiagorachell 06/14/2025 2 [place] [facility] Shubham Ppapas [id number] Shubham Pappas Notes Date Note Type Note [...] which brought him to the ER in [place]. He states he taken a THC pill [...] night, lower extremity edema. Cee Raygoza PA-C [address] [place] [address], [phone], [facility]. 12/21/2024 12:01:14 05/13/2025 text/html ROS as noted [...] lower extremity edema. Cee Raygoza PA-C [address] [place], [address], [facility]. 05/13/2025 15:14:54 06/14/2025 text/html ROS as noted [...] 11/27/24, Lipid 12/07/24 Cee Raygoza PA-C [address] [place], [address], [facility]. 06/14/2025 11:47:55
== END 2025-07-06 11:44 | disposition home or self-care (01) ==
LOC: HO.HPS 10:58
PROVIDERS: PCP Internal Medicine; Visit Provider Internal Medicine
DX: J44.9 Chronic obstructive pulmonary disease, unspecified (principal); J98.4 Other disorders of lung; G47.33 Obstructive sleep apnea (adult) (pediatric); E66.9 Obesity, unspecified; J30.9 Allergic rhinitis, unspecified
CPT/HCPCS: 99213

== ENCOUNTER → 2025-07-06 10:57 | Outpatient (BNVA) | payer MEDICARE, MEDICAID, SELFPAY | PROVIDERS: PCP Internal Medicine; Visit Provider Internal Medicine | DX: G47.33 Obstructive sleep apnea (adult) (pediatric) (principal); Z99.89 Dependence on other enabling machines and devices; E66.9 Obesity, unspecified; Z68.32 Body mass index [BMI] 32.0-32.9, adult; J44.9 Chronic obstructive pulmonary disease, unspecified; J98.4 Other disorders of lung; J30.9 Allergic rhinitis, unspecified | CPT/HCPCS: 99212 ==

== ENCOUNTER 2025-07-14 10:40 | Outpatient (AMB) | payer MEDICARE, MEDICAID, SELFPAY ==
--- NOTE | 2025-07-14 11:07 | A.OFFVIS_ITS ---
Intake Visit Reasons: 6 MONTH F/U Allergies codeine Allergy (Unknown, Verified 07/06/25 11:42) itching ibuprofen (IBUPROFEN) Allergy (Unknown, Verified 07/06/25 11:42) HIVES ketorolac Allergy (Unknown, Verified 07/06/25 11:42) swelling sumatriptan (From IMITREX) Allergy (Unknown, Verified 07/06/25 11:42) TACHYCARDIA bupropion (From Wellbutrin) Adverse Reaction (Severe, Verified 07/06/25 11:42) suicide thoughts prochlorperazine (From Compazine) Adverse Reaction (Unknown, Verified 07/06/25 11:42) Unknown HPI Comments Details: 49 years old man with insulin-dependent diabetes and painful probably diabetic neuropathy. He did not do well with gabapentin and pregabalin but better with brand name Lyrica. Duloxetine was added but that resulted in significant side effects. He is presenting for follow-up management of neuropathic pain. The patient repo rts that Lyrica (pregabalin) 150 mg taken three times a day provides 75-80% relief for the pain, though symptoms are significantly worse in the evening. The patient previously tried gabapentin, which was found to be ineffective. The patient notes a preference for name-brand Lyrica, stating the generic version was not effective, a sentiment the patient's pharmacist has also heard from others. 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 The patient uses a custom brace for this condition. While surgery requiring three procedures has been discussed, the patient is fearful of the procedure due to a history of poorly controlled diabetes. The patient notes that recent weight loss has been helpful. 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 - Musculoskeletal: Reports severe degenerative joint disease of the ankles, described as collapsed with zzib-ze-lrsf grinding. - Constitutional: Reports recent weight loss. - Endocrine: Reports a history of diabetes. - Cardiovascular: Denies leg swelling. Physical Exam Neuro Other: Mental Status: Alert and oriented to person, place, and time. Normal attention. Normal spontaneous speech, fluency, and comprehension. Cranial Nerves: CN II: Visual puri full to confrontation, visual acuity intact. CN III, IV, : Pupils equal, round, reactive to light and accommodation. Extraocular movements are normal. CN V: Facial sensation is normal. CN VII: Facial movements symmetrical. CN VIII: Hearing intact to bedside conversation is normal. CN IX, X: Palate elevates symmetrically. CN XI: Shoulder shrug and head turn symmetrical. CN XII: Tongue midline without atrophy or fasciculations. Extrapyramidal: Full facial expressions and blinking. No rigidity. Movements are appropriate with no tremor or abnormality. Speech: Normal; no dysarthria or tremor. Assessment & Plan Assessment & Plan (1) Painful diabetic neuropathy: Comment: Meds tried: Gabapentin, Pregabalin, Lyrica. 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 01/06/24. Code(s): E11.40 - Type 2 diabetes mellitus with diabetic neuropathy, unspecified Category: Medical Plan Impression: Painful diabetic neuropathy reasonably well control with Lyrica though he is taking relatively high dose without any side-effects Recommendations: Lyrica brand-name 150 mg 1 3 times a day. I discussed with the patient that the current Lyrica regimen is providing satisfactory, 75-80% pain relief, which is a good outcome. I explained that neuropathic pain often worsens as the day progresses into evening and night. To address the increased evening pain, I suggested modifying the dosing schedule by skipping the midday dose and taking two pills in the evening, and the patient agreed to try this. We clarified that the ankle pain is a separate issue related to severe degenerative arthritis, not the neuropathy. I sent a new prescription for name-brand Lyrica, as requested, and advised the patient to confirm with the pharmacy that they receive the correct formulation. I recommended a follow-up visit in six months. Medications: New pregabalin (Lyrica) 150 mg PO TID 270 caps 1RF Coding Level of Care Code Est Pt Level 3 (86203) Diagnoses Painful diabetic neuropathy E11.40
--- OUTSIDE RECORDS SUMMARY | 2025-07-14 16:00 | XMS_ITS | Continuity of Care Document ---
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 He is in office with his . Christofer continues to struggle with blood pressure control. [...] closely monitor his blood pressure at home. Christofer agreed to closely monitor his blood pressure at home and will contact the office or seek medical attention with any new or worsening symptoms or concerns. We will see him back in office in 1 month As always, it is a pleasure seeing patients along with you. Not available 05/13/2025 15:14:19 Plan of Treatment Reminders Order Date Submit Date Provider Last Modified By Organization Details Last Modified Time Details Appointments Any 15 2024 09:30A M Christofer Pienda MD Not available Not available Not available Any 15 2025 10:00A M Christofer Pineda MD Not available Not available Not available Lab None recorded. Referral None recorded. Procedures None recorded. Surgeries None recorded. Imaging electroca rdiogram 2024 025 [email or web address] In-Office Order, Internal Use Only DO Not Attach Compendium DO Not Attach Compendium, Do Not Delete/merge, [id number] 05/13/2025 15:03:56 Medication Orders amlodipin e 2.5 mg tablet 2024 025 [facility], [address] [place] [address], [id number], 05/13/2025 18:46:29 Patient TargetsNo targets recorded. Patient InstructionsNo instructions recorded. Reason for Referral None Reported. Results Created Date Observation Date Name Description Value Unit Range Abnormal Flag Note LastModifiedBy Organization Detail LastModifiedTime 04/18/2004/19/2025 BASIC METAB OLIC PANEL (8) glucose 104 mg/dL 70-99 above high normal Not Available [facility] ([facility]) [address] [place], [address], 04/19/2025 04:05:12 04/18/2004/19/2025 BASIC METAB OLIC PANEL (8) BUN 15 mg/dL 6-24 normal Not Available [facility] ([facility]) [address] [place], [address], 04/19/2025 04:05:12 04/18/2004/19/2025 BASIC METAB OLIC PANEL (8) creatinine 1.21 mg/dL 0.76-1 .27 normal Not Available [facility] ([facility]) [address] [place], [address], 04/19/2025 04:05:12 04/18/2004/19/2025 BASIC METAB OLIC PANEL (8) eGFR 73 mL/mi n/1.7 3 >59 normal Not Available [facility] ([facility]) [address] [place], [address], 04/19/2025 04:05:12 04/18/2004/19/2025 BASIC METAB OLIC PANEL (8) BUN/creatini ne ratio 12 9-20 normal Not Available [facility] ([facility]) [address] [place], [address], 04/19/2025 04:05:12 04/18/2004/19/2025 BASIC METAB OLIC PANEL (8) sodium 139 mmol/ L 134-14 4 normal Not Available [facility] ([facility]) [address] [facility], [place], [address], 04/19/2025 04:05:12 04/18/2004/19/2025 BASIC METAB OLIC PANEL (8) potassium 4.0 mmol/ L 3.5-5. 2 normal Not Available [facility] ([facility]) [address] [place], [address], 04/19/2025 04:05:12 04/18/2004/19/2025 BASIC METAB OLIC PANEL (8) chloride 98 mmol/ L 96-106 normal Not Available [facility] ([facility]) [address] [place], [address], 04/19/2025 04:05:12 04/18/2004/19/2025 BASIC METAB OLIC PANEL (8) carbon dioxide, total 25 mmol/ L 20-29 normal Not Available [facility] ([facility]) [address] [place], [address], 04/19/2025 04:05:12 04/18/2004/19/2025 BASIC METAB OLIC PANEL (8) calcium 9.4 mg/dL 8.7-10 .2 normal Not Available [facility] ([facility]) [address] [facility], [place], [address], 04/19/2025 04:05:12 05/13/20 elect rocar diogr am No observ ation record ed. [email or web address] In-Office Order Internal Use Only DO Not Attach Compendium DO Not Attach Compendium, Do Not Delete/merge, [id number] 05/13/2025 14:16:07 05/17/20 25 05/13/2025 elect rocar diogr am No observ ation record ed. [email or web address] Not Available 05/17 13:25:17 06/14/20 elect rocar diogr am No observ ation record ed. In-Office Order Internal Use Only DO Not Attach Compendium DO Not Attach Compendium, Do Not Delete/merge, [id number] 06/14/2025 10:44:40 06/15/20 25 06/14/2025 elect rocar diogr am No observ ation record ed. [email or web address] Not Available 06/16 13:24:09 Result Notes None recorded. Problems Name Problem SNOMED Code Status Onset Date Resolution Date Notes Provider Name and Address Organization Details Recorded Time Obstructiv e sleep apnea syndrome 32349957 Active on biPAP Cee Raygoza PA-C [address] [place] [address], [address], [facility] 4 12:16:31 Mixed hyperlipid emia 950273435 Active 2023 Natasha aceves [facility] 4 15:20:19 Benign essential hypertensi on 4858239 Active 2023 Natasha aceves [facility] 4 15:20:19 Dyspnea 720342758 Active 2023 Natasha aceves [facility] 4 15:20:20 Chest pain 99387713 Active 2023 [facility] 4 15:20:22 Chronic combined systolic and diastolic heart failure 024829264453 100 Active 2023 [facility] 4 15:20:23 Type 1 diabetes mellitus 00856568 Active 2023 Cee Raygoza PA-C [address] [place], [address], [facility] 4 12:15:11 Chronic obstructiv e pulmonary disease 93301172 Active 2023 Cee Raygoza PA-C [address] [place], [address], [facility] 4 12:16:46 Problem Notes None recorded. Procedures Surgical History Date Name Laterality Status Provider Name and Address Organization Details Recorded Time Hernia Repair completed Laura Encarnacion [facility] 03/01/2024 16:37:06 Imaging Results None recorded. Procedure Notes None recorded. Medical Equipment None Reported. Allergies Allergen ID Allergen Name Allergen Category Reaction Reaction Severity Criticality Documentation Date Start Date Code Code System Note Provider Name and Address Organization Details Recorded Time 899949 Compazine medicatio n Not available Not available Not available 03/01/202418957 6 RxNorm sever e muscl e spasm Laura Encarnacion [facility] 4 16:29:57 463688 Imitrex medicatio n Not available Not available Not available 03/01/202451955 3 RxNorm Laura Encarnacion [facility] 4 16:30:08 443869 Motrin medicatio n Not available Not available Not available 03/01/202414971 8 RxNorm can' t take- harmf ul to my kidne ys Laura Encarnacion [facility] 4 16:30:51 323809 Non-stero idal anti-infl ammatory agent (substanc e) medicatio n other Not available Not available 03/01/2024 75787 5008 SNOMED [facility] 4 12:49:07 158033 Toradol medicatio n Not available Not available Not available 03/01/2024 39333 RxNorm can' t take- harmf ul to my kidne kelly Encarnacion [facility], [facility] 4 16:31:19 192745 Wellbutri n medicatio n Not available Not available Not available 03/01/2024 01642 RxNorm suici daysi Laura Encarnacion [facility] 4 16:32:29 508618 codeine medicatio n itching Not available Not available 03/01/2024 2670 RxNorm [facility] 4 12:49:07 530409 ibuprofen medicatio n other Not available Not available 03/03/2024 5640 RxNorm [facility] 4 12:49:07 473618 POLLEN EXTRACTS environme nt,medica tion Not available Not available Not available 03/03/2024 40404 6 RxNorm [facility] 4 12:49:07 148625 cat dander environme nt Not available Not available Not available 03/03/2024 [facility] 4 12:49:07 807376 mold extract environme nt Not available Not available Not available 03/03/2024 55312 8 RxNorm [facility] 4 12:49:07 522490 cigarette smoke environme nt Not available Not available Not available 03/03/2024 [facility] 4 12:49:07 837719 hydralazi ne medicatio n dizziness Not available Not available 05/09/2025 5470 RxNorm Laura Encarnacion [facility] 5 10:42:26 Medications Name Sig Start [...] Not Available Not Available Vitals Date Recorded Systolic And Diastolic Provider Name and Address Organization Details Last Updated DateTime 05/13/2025 150/82 mm[Hg] Cee Raygoza PA-C [address] [place] [address], [address], [place] [facility] 05/13/2025 14:47:45 Date Recorded Body height Body mass index (BMI) Body weight Oxygen saturation Heart rate Systolic And Diastolic Provider Name and Address Organization Details Last Updated DateTime 182.88 cm 32.4 kg/m2 520083. 58 g 98 % 67 /min 173/94 mm[Hg] Zari Li [facility]. 14:17:33 Social History Question Answer Notes LastModified by Organizat ion Details LastModified Time Tobacco Smoking Status Never Smoker Kortney aceves [facility] 03/03/2024 12:49:23 Do You Have An Advance Directive? No [email or web address] Information not available 03/03/2024 Are You Blind Or Do You Have Difficulty Seeing? No [email or web address] Information not available 03/03/2024 Is Blood Transfusion Acceptable In An Emergency? Yes [email or web address] Information not available 03/03/2024 What Is Your Level Of Caffeine Consumption? Occasional [email or web address] Information not available 03/03/2024 Are You Deaf Or Do You Have Serious Difficulty Hearing? No [email or web address] Information not available 03/03/2024 What Type Of Diet Are You Following? SPECIFIC [email or web address] Information not available 03/03/2024 Which Of Your Hands Is Dominant? Left [email or web address] Information not available 03/03/2024 What Was The Date Of Your Most Recent Tobacco Screening? 06/14/2025 Information not available 06/14/2025 Do You Have Any Pets? Yes [email or web address] Information not available 03/03/2024 What Is Your [...] other forms of tobacco or nicotine? No [email or web address] Information not available 03/03/2024 What is your level of alcohol consumption? None [email or web address] Information not available 03/03/2024 Are you currently employed? No [email or web address] Information not available 03/03/2024 Are you able to care for yourself independently? No [email or web address] Information not available 03/03/2024 What is your exercise level? Occasional [email or web address] Information not available 03/03/2024 Mental Status Question Answer Note LastModified by Organization D etails LastModified Time Do you feel stressed (tense, restless, nervous, or anxious, or unable to sleep at night)? CX1745-2 [email or web address] Information not available 11/24/2024 Family History Relationship Description Onset Age of this Age Resolved Age Notes LastModified by Organization Details LastModified Time Mother Depressive disorder [email or web address] Not available 2023 12:49:12 Unspecified Relation Malignant neoplasm of colon [email or web address] Not available 2023 12:49:12 Unspecified Relation Hyperlipidem ia [email or web address] Not available 2023 12:49:12 Maternal Grandmother Myocardial infarction [email or web address] Not available 03/03 12:49:12 Maternal Grandmother Family history of malignant neoplasm [email or web address] Not available 2023 12:49:12 Maternal Grandmother Hypertensive disorder [email or web address] Not available 2023 12:49:12 Maternal Grandfather Myocardial infarction [email or web address] Not available 03/03 12:49:12 Maternal Grandfather Cerebrovascu lar accident Not available 05/2024 12:49:12 Maternal Grandfather Diabetes mellitus [email or web address] Not available 2023 12:49:12 Father Depressive disorder [email or web address] Not available 2023 12:49:12 Father Diabetes mellitus [email or web address] Not available 2023 12:49:12 Medical History Condition [...] ICD10 Code Diagnosis IMO Codes Diagnosis Note [id number] Christofer Pineda MD [facility] [address] [facility] [address] [place] [address] 05/13/2025 13:48:54 05/13/2025 15:03:56 Benign essential hypertension 0464332 I10 Mixed hyperlipidemia 267 157710 E78.2 Type 1 [place] mellitus 72174505 E10.9 Chronic ob structive pulmonary disease 64474493 J44.9 Obstructiv e sleep apnea syndrome 03003428 G47.33 Edema of l ower extremity 268322738 R60.0 29113 Health Concerns Section Related Observation LastModified by Organization Detai ls LastModified Time None Recorded Concern Status LastModified by Organization Details LastModified Time None Recorded Payers Encounter Date Sequence Insurance Name Policy Number Policy Rodriguez Covered Member ID Rodriguez Member ID Guarantor Name 05/13/2025 1 [place]: [employer] Christofer Pappas [id number] Christofer Pappas 05/13/2025 2 [place] [facility] Christofer Pappas [id number] Christoefr Pappas Notes Date Note Type Note Provider Name and Address Organization Details Recorded Time 05/13/2025 text/html ROS as noted in the HPI Christofer Pappas is presenting to the office for a follow up appointment. He has a past medical history of Hypertension, hyperlipidemia, dilated cardiomyopathy, type 1 diabetes, sleep apnea, COPD. Christofer contacted the office on 05/09/2025 with concerns of elevated blood pressures and dehydration. He was scheduled for an appointment today. Today, Christofer feels well. He is concerned that his [...] night, lower extremity edema. Cee Raygoza PA-C [address] [place] [address], [address], [facility]. 05/13/2025 15:14:54
--- OUTSIDE RECORDS SUMMARY | 2025-07-14 16:00 | XMS_ITS | Data Portability ---
Author Organization [facility] [employer], svmg_admin Address [address] [place] [id number] Care Team Providers Care Certified Pedorthotist Name Role Phone IDALIA LEUNG Primary Care Provider SHUBHAM PINEDA Bag Turner LAVERNE TRINH Bag Turner [phone] ODALIS BELLO Anesthesiologist Assessment Encounter Date Assessment Date Assessment LastModified by Organization Details LastModified Time 12/20/2024 12/20/2024 Shubham is presenting for a post-hospitalizati on appointment. Shubham was recently seen at the [facility] Emergency room for an episode of [...] ended up in the emergency room in [place] because his blood pressure was 70. He [...] available Lab CBC w/ auto diff 2024 025 THIERRY [facility] (Centralized Electronic Ordering [...] 08:07:31 ferritin, serum or plasma 2024 025 [email or web address] [facility] (Centralized Electronic Ordering - All Locations), Patient Can Go To The Location Of Their Choice, 07/12/2025 13:17:54 vitamin D, 25-hydrox y, total, serum 2024 025 THIERRY [facility] (Centralized Electronic Ordering - All Locations), Patient Can Go To The Location Of Their Choice, 06/15/2025 08:07:37 magnesium , serum or plasma 2024 025 THIERRY [facility] (Centralized Electronic Ordering - All Locations), Patient Can Go To The Location Of Their Choice, 06/15/2025 08:07:38 BMP, serum or plasma 2024 025 [email or web address] ([facility] - All Locations), Patient Can Go To The Location Of Their Choice, [id number] 05/10/2025 14:21:35 BMP, serum or plasma 2024 025 [facility] (Centralized [facility] Ordering - All Locations), Patient Can Go To The Location Of Their Choice, [id number] 02/09/2025 00:05:24 BMP, serum or plasma 2024 025 [email or web address] (Centralized [facility] Ordering - All Locations), Patient Can Go To The Location Of Their Choice, [id number] 05/10/2025 14:21:52 BMP, serum or plasma 2024 025 [facility] (Centralized Electronic Ordering - All Locations), Patient Can Go To The Location Of Their Choice, [id number] 05/11/2025 03:04:54 Referral None recorded. Procedures None [...] DO Not Attach Compendium, Do Not Delete/merge, [id number] 12/20/2024 17:35:32 Medication Orders amlodipin e 2.5 mg tablet 2024 025 THIERRY [facility], [address] [place] [address], [id number], 05/13/2025 18:46:29 spironola ctone 25 mg tablet 2024 025 [email or web address] [facility], [address] [place] [address], [id number], 03/21/2025 17:04:58 lisinopri l 20 mg tablet 2024 025 [email or web address] [facility], [address] [place] [address], [id number], 01/27/2025 08:24:25 Patient TargetsNo targets recorded. Patient Instructions Encounter Date Encounter Id Patient Instructions Last Modified By Organization Details Last Modified Time 01/27/2025 [id number] learning about type 1 diabetes rwholey Not available 01/27/2025 10:28:37 type 1 diabetes: care instructions rwholey Not available 01/27/2025 10:28:37 03/07/2025 [id number] shortness of breath: care instructions rwholey Not available 03/07/2025 16:11:45 Reason for Referral None Reported. Results Created Date Observation Date Name Description Value Unit Range Abnormal Flag Note LastModifiedBy Organization Detail LastModifiedTime 11/20/1911/19/2024 BASIC METAB OLIC PANEL (8) glucose 78 mg/dL 70-99 normal Not Available [facility] ([facility]) [address] [place], [address], 11/20/2024 00:05:15 11/20/1911/19/2024 BASIC METAB OLIC PANEL (8) BUN 19 mg/dL 6-24 normal Not Available [facility] ([facility]) [address] [place], [address], 11/20/2024 00:05:15 11/20/19 25 11/19/2024 BASIC METAB OLIC PANEL (8) creatinine 1.12 mg/dL 0.76-1 .27 normal Not Available [facility] ([facility]) [address] [place], [address], 11/20/2024 00:05:15 11/20/19 25 11/19/2024 BASIC METAB OLIC PANEL (8) eGFR 81 mL/mi n/1.7 3 >59 normal Not Available [facility] ([facility]) [address] [facility], [place], [address], 11/20/2024 00:05:15 11/20/19 25 11/19/2024 BASIC METAB OLIC PANEL (8) BUN/creatini ne ratio 17 9-20 normal Not Available [facility] ([facility]) [address] [facility], [place], [address], 11/20/2024 00:05:15 11/20/19 25 11/19/2024 BASIC METAB OLIC PANEL (8) sodium 137 mmol/ L 134-14 4 normal Not Available [facility] ([facility]) [address] [place], [address], 11/20/2024 00:05:15 11/20/19 25 11/19/2024 BASIC METAB OLIC PANEL (8) potassium 5.1 mmol/ L 3.5-5. 2 normal Not Available [facility] ([facility]) [address] [place], [address], 11/20/2024 00:05:15 11/20/19 25 11/19/2024 BASIC METAB OLIC PANEL (8) chloride 101 mmol/ L 96-106 normal Not Available [facility] ([facility]) [address] [place], [address], 11/20/2024 00:05:15 11/20/19 25 11/19/2024 BASIC METAB OLIC PANEL (8) carbon dioxide, total 22 mmol/ L 20-29 normal Not Available [facility] ([facility]) [address] [facility], [place], [address], 11/20/2024 00:05:15 11/20/19 25 11/19/2024 BASIC METAB OLIC PANEL (8) calcium 9.7 mg/dL 8.7-10 .2 normal Not Available [facility] ([facility]) [address] [facility], [place], [address], 11/20/2024 00:05:15 12/08/19 25 12/08/2024 CHOL+ TRIG+ HDL+L DL-D cholesterol, total 116 mg/dL 100-19 9 normal Not Available [facility] ([facility]) [address] [facility], [place], [address], 12/08/2024 08:11:44 12/08/19 25 12/08/2024 CHOL+ TRIG+ HDL+L DL-D triglyceride s 91 mg/dL 0-149 normal Not Available [facility] ([facility]) [address] [place], [address], 12/08/2024 08:11:44 12/08/19 25 12/08/2024 CHOL+ TRIG+ HDL+L DL-D HDL cholesterol 49 mg/dL >39 normal Not Available [facility] ([facility]) [address] [place], [address], 12/08/2024 08:11:44 12/08/19 25 12/08/2024 CHOL+ TRIG+ HDL+L DL-D LDL chol. 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 Not Available [facility] ([facility]) [address] [place], [address], 12/08/2024 08:11:44 12/08/19 25 12/08/2024 BASIC METAB OLIC PANEL (8) glucose 101 mg/dL 70-99 above high normal Not Available [facility] ([facility]) [address] [place], [address], 12/08/2024 08:11:44 12/08/19 25 12/08/2024 BASIC METAB OLIC PANEL (8) BUN 25 mg/dL 6-24 above high normal Not Available [facility] ([facility]) [address] [place], [address], 12/08/2024 08:11:44 12/08/19 25 12/08/2024 BASIC METAB OLIC PANEL (8) creatinine 1.07 mg/dL 0.76-1 .27 normal Not Available [facility] ([facility]) [address] [place], [address], 12/08/2024 08:11:44 12/08/19 25 12/08/2024 BASIC METAB OLIC PANEL (8) eGFR 85 mL/mi n/1.7 3 >59 normal Not Available [facility] ([facility]) [address] [place], [address], 12/08/2024 08:11:44 12/08/19 25 12/08/2024 BASIC METAB OLIC PANEL (8) BUN/creatini ne ratio 23 9-20 above high normal Not Available [facility] ([facility]) [address] [place], [address], 12/08/2024 08:11:44 12/08/19 25 12/08/2024 BASIC METAB OLIC PANEL (8) sodium 137 mmol/ L 134-14 4 normal Not Available [facility] ([facility]) [address] [place], [address], 12/08/2024 08:11:44 12/08/19 25 12/08/2024 BASIC METAB OLIC PANEL (8) potassium 4.1 mmol/ L 3.5-5. 2 normal Not Available [facility] ([facility]) [address] [place], [address], 12/08/2024 08:11:44 12/08/19 25 12/08/2024 BASIC METAB OLIC PANEL (8) chloride 97 mmol/ L 96-106 normal Not Available [facility] ([facility]) [address] [place], [address], 12/08/2024 08:11:44 12/08/19 25 12/08/2024 BASIC METAB OLIC PANEL (8) carbon dioxide, total 21 mmol/ L 20-29 normal Not Available [facility] ([facility]) [address] [place], [address], 12/08/2024 08:11:44 12/08/19 25 12/08/2024 BASIC METAB OLIC PANEL (8) calcium 9.9 mg/dL 8.7-10 .2 normal Not Available [facility] ([facility]) [address] [place], [address], 12/08/2024 08:11:44 12/08/19 25 12/08/2024 CK creatine kinase,total 305 U/L 49-439 normal Not Available [facility] ([facility]) [address] [place], [address], 12/08/2024 08:11:45 12/08/19 25 12/08/2024 AST (SGOT ) AST (SGOT) 29 IU/L 0-40 normal Not Available [facility] ([facility]) [address] [place], [address], 12/08/2024 08:11:45 12/08/19 25 12/08/2024 ALT (SGPT ) ALT (SGPT) 26 IU/L 0-44 normal Not Available [facility] ([facility]) [address] [place], [address], 12/08/2024 08:11:46 02/09/20 25 02/08/2025 BASIC METAB OLIC PANEL (8) glucose 83 mg/dL 70-99 normal Not Available [facility] ([facility]) [address] [facility], [place], [address], 02/09/2025 00:05:24 02/09/20 25 02/08/2025 BASIC METAB OLIC PANEL (8) BUN 18 mg/dL 6-24 normal Not Available [facility] ([facility]) [address] [facility] [place], [address], 02/09/2025 00:05:24 02/09/20 25 02/08/2025 BASIC METAB OLIC PANEL (8) chloride 101 mmol/ L 96-106 normal Not Available [facility] ([facility]) [address] [place], [address], 02/09/2025 00:05:24 02/09/20 25 02/08/2025 BASIC METAB OLIC PANEL (8) carbon dioxide, total 25 mmol/ L 20-29 normal Not Available [facility] ([facility]) [address] [place], [address], 02/09/2025 00:05:24 02/09/20 25 02/08/2025 BASIC METAB OLIC PANEL (8) calcium 9.6 mg/dL 8.7-10 .2 normal Not Available [facility] ([facility]) [address] [place], [address], 02/09/2025 00:05:24 02/09/20 25 02/09/2025 BASIC METAB OLIC PANEL (8) creatinine 1.12 mg/dL 0.76-1 .27 normal Not Available [facility] ([facility]) [address] [place], [address], 02/09/2025 00:05:24 02/09/20 02/09/2025 BASIC METAB OLIC PANEL (8) eGFR 81 mL/mi n/1.7 3 >59 normal Not Available [facility] ([facility]) [address] [place], [address], 02/09/2025 00:05:24 02/09/20 25 02/09/2025 BASIC METAB OLIC PANEL (8) BUN/creatini ne ratio 16 9-20 normal Not Available [facility] ([facility]) [address] [place], [address], 02/09/2025 00:05:24 02/09/2002/09/2025 BASIC METAB OLIC PANEL (8) sodium 140 mmol/ L 134-14 4 normal Not Available [facility] ([facility]) [address] [place], [address], 02/09/2025 00:05:24 02/09/2002/09/2025 BASIC METAB OLIC PANEL (8) potassium 4.7 mmol/ L 3.5-5. 2 normal Not Available [facility] ([facility]) [address] [place], [address], 02/09/2025 00:05:24 04/18/20 25 04/19/2025 BASIC METAB OLIC PANEL (8) glucose 104 mg/dL 70-99 above high normal Not Available [facility] ([facility]) [address] [place], [address], 04/19/2025 04:05:12 04/18/20 25 04/19/2025 BASIC METAB OLIC PANEL (8) BUN 15 mg/dL 6-24 normal Not Available [facility] ([facility]) [address] [place], [address], 04/19/2025 04:05:12 04/18/20 25 04/19/2025 BASIC METAB OLIC PANEL (8) creatinine 1.21 mg/dL 0.76-1 .27 normal Not Available [facility] ([facility]) [address] [facility], [place], [address], 04/19/2025 04:05:12 04/18/2004/19/2025 BASIC METAB OLIC PANEL (8) eGFR 73 mL/mi n/1.7 3 >59 normal Not Available [facility] ([facility]) [address] [facility] [place], [address], 04/19/2025 04:05:12 04/18/2004/19/2025 BASIC METAB OLIC PANEL (8) BUN/creatini ne ratio 12 9-20 normal Not Available [facility] ([facility]) [address] [facility], [place], [address], 04/19/2025 04:05:12 04/18/2004/19/2025 BASIC METAB OLIC PANEL (8) sodium 139 mmol/ L 134-14 4 normal Not Available [facility] ([facility]) [address] [facility], [place], [address], 04/19/2025 04:05:12 04/18/2004/19/2025 BASIC METAB OLIC PANEL (8) potassium 4.0 mmol/ L 3.5-5. 2 normal Not Available [facility] ([facility]) [address] [facility] [place], [address], 04/19/2025 04:05:12 04/18/2004/19/2025 BASIC METAB OLIC PANEL (8) chloride 98 mmol/ L 96-106 normal Not Available [facility] ([facility]) [address] [facility] [place], [address], 04/19/2025 04:05:12 04/18/2004/19/2025 BASIC METAB OLIC PANEL (8) carbon dioxide, total 25 mmol/ L 20-29 normal Not Available [facility] ([facility]) [address] [facility] [place], [address], 04/19/2025 04:05:12 04/18/2004/19/2025 BASIC METAB OLIC PANEL (8) calcium 9.4 mg/dL 8.7-10 .2 normal Not Available [facility] ([facility]) [address] [facility], [place], [address], 04/19/2025 04:05:12 06/14/20 25 06/15/2025 FE+TI BC+FE R iron bind.cap.(TI BC) 295 ug/dL 250-45 0 normal Not Available [facility] ([facility]) [address] [facility], [place], [address], 06/15/2025 08:07:31 06/14/2006/15/2025 FE+TI BC+FE R UIBC 168 ug/dL 111-34 3 normal Not Available [facility] ([facility]) [address] [facility], [place], [address], 06/15/2025 08:07:31 06/14/2006/15/2025 FE+TI BC+FE R iron 127 ug/dL 38-169 normal Not Available [facility] ([facility]) [address] [place], [address], 06/15/2025 08:07:31 06/14/20 25 06/15/2025 FE+TI BC+FE R iron saturation 43 % 15-55 normal Not Available [facility] ([facility] [address] [place], [address], 06/15/2025 08:07:31 06/14/2006/15/2025 FE+TI BC+FE R ferritin 112 NG/mL 30-400 normal Not Available [facility] ([facility]) [address] [place], [address], 06/15/2025 08:07:31 06/14/20 25 06/14/2025 CBC WITH DIFFE RENTI AL/PL ATELE T WBC 9.8 x10e3 /uL 3.4-10 .8 normal Not Available [facility] ([facility]) [address] [facility], [place], [address], 06/15/2025 08:07:33 06/14/20 25 06/14/2025 CBC WITH DIFFE RENTI AL/PL ATELE T RBC 4.89 x10e6 /uL 4.14-5 .80 normal Not Available [facility] ([facility]) [address] [facility], [place], [address], 06/15/2025 08:07:33 06/14/20 25 06/14/2025 CBC WITH DIFFE RENTI AL/PL ATELE T hemoglobin 15.1 g/dL 13.0-1 7.7 normal Not Available [facility] ([facility]) [address] [facility], [place], [address], 06/15/2025 08:07:33 06/14/20 25 06/14/2025 CBC WITH DIFFE RENTI AL/PL ATELE T hematocrit 44.2 % 37.5-5 1.0 normal Not Available [facility] ([facility]) [address] [place], [address], 06/15/2025 08:07:33 06/14/20 25 06/14/2025 CBC WITH DIFFE RENTI AL/PL ATELE T MCV 90 fL 79-97 normal Not Available [facility] ([facility]) [address] [place], [address], 06/15/2025 08:07:33 06/14/20 25 06/14/2025 CBC WITH DIFFE RENTI AL/PL ATELE T MCH 30.9 pg 26.6-3 3.0 normal Not Available [facility] ([facility]) [address] [place], [address], 06/15/2025 08:07:33 06/14/20 25 06/14/2025 CBC WITH DIFFE RENTI AL/PL ATELE T MCHC 34.2 g/dL 31.5-3 5.7 normal Not Available [facility] ([facility]) [address] [facility], [place], [address], 06/15/2025 08:07:33 06/14/20 25 06/14/2025 CBC WITH DIFFE RENTI AL/PL ATELE T RDW 12.1 % 11.6-1 5.4 Not Available [facility] ([facility]) [address] [facility], [place], [address], 06/15/2025 08:07:33 06/14/20 25 06/14/2025 CBC WITH DIFFE RENTI AL/PL ATELE T platelets 223 x10e3 /uL 150-45 0 normal Not Available [facility] ([facility]) [address] [facility], [place], [address], 06/15/2025 08:07:33 06/14/2006/14/2025 CBC WITH DIFFE RENTI AL/PL ATELE T neutrophils 62 % not estab. normal Not Available [facility] ([facility]) [address] [facility], [place], [address], 06/15/2025 08:07:33 06/14/20 25 06/14/2025 CBC WITH DIFFE RENTI AL/PL ATELE T lymphs 26 % not estab. normal Not Available [facility] ([facility]) [address] [facility], [place], [address], 06/15/2025 08:07:33 06/14/20 25 06/14/2025 CBC WITH DIFFE RENTI AL/PL ATELE T monocytes 11 % not estab. normal Not Available [facility] ([facility]) [address] [place], [address], 06/15/2025 08:07:33 06/14/20 25 06/14/2025 CBC WITH DIFFE RENTI AL/PL ATELE T eos 1 % not estab. normal Not Available [facility] ([facility]) [address] [facility], [place], [address], 06/15/2025 08:07:33 06/14/20 25 06/14/2025 CBC WITH DIFFE RENTI AL/PL ATELE T basos 0 % not estab. normal Not Available [facility] ([facility]) [address] [facility], [place], [address], 06/15/2025 08:07:33 06/14/20 25 06/14/2025 CBC WITH DIFFE RENTI AL/PL ATELE T immature cells [employer]ATWORK [employer]SEM[employer]ER Not Available [facility] ([facility]) [address] [facility], [place], [address], 06/15/2025 08:07:33 06/14/20 25 06/14/2025 CBC WITH DIFFE RENTI AL/PL ATELE T neutrophils (absolute) 6.1 x10e3 /uL 1.4-7. 0 normal Not Available [facility] ([facility]) [address] [facility], [place], [address], 06/15/2025 08:07:33 06/14/20 25 06/14/2025 CBC WITH DIFFE RENTI AL/PL ATELE T lymphs (absolute) 2.5 x10e3 /uL 0.7-3. 1 normal Not Available [facility] ([facility]) [address] [place], [address], 06/15/2025 08:07:33 06/14/20 25 06/14/2025 CBC WITH DIFFE RENTI AL/PL ATELE T monocytes(ab solute) 1.0 x10e3 /uL 0.1-0. 9 above high normal Not Available [facility] ([facility]) [address] [place], [address], 06/15/2025 08:07:33 06/14/20 25 06/14/2025 CBC WITH DIFFE RENTI AL/PL ATELE T eos (absolute) 0.1 x10e3 /uL 0.0-0. 4 normal Not Available [facility] ([facility]) [address] [facility], [place], [address], 06/15/2025 08:07:33 06/14/20 25 06/14/2025 CBC WITH DIFFE RENTI AL/PL ATELE T baso (absolute) 0.0 x10e3 /uL 0.0-0. 2 normal Not Available [facility] ([facility]) [address] [facility], [place], [address], 06/15/2025 08:07:33 06/14/20 25 06/14/2025 CBC WITH DIFFE RENTI AL/PL ATELE T immature granulocytes 0 % not estab. Not Available [facility] ([facility]) [address] [facility], [place], [address], 06/15/2025 08:07:33 06/14/20 25 06/14/2025 CBC WITH DIFFE RENTI AL/PL ATELE T immature grans (abs) [employer]WORK [employer]SEM[employer]ER Not Available [facility] ([facility]) [address] [facility], [place], [address], 06/15/2025 08:07:33 06/14/20 25 06/14/2025 CBC WITH DIFFE RENTI AL/PL ATELE T NRBC [employer]WORK [employer]ER Not Available [facility] ([facility]) [address] [facility], [place], [address], 06/15/2025 08:07:33 06/14/20 25 06/14/2025 CBC WITH DIFFE RENTI AL/PL ATELE T hematology comments: FLATWORK ASSEMBLER Not Available [facility] ([facility]) [address] [facility], [place], [address], 06/15/2025 08:07:33 06/14/20 25 06/14/2025 COMP. METAB OLIC PANEL (14) glucose 62 mg/dL 70-99 below low normal Not Available [facility] ([facility]) [address] [facility], [place], [address], 06/15/2025 08:07:35 06/14/20 25 06/14/2025 COMP. METAB OLIC PANEL (14) BUN 20 mg/dL 6-24 normal Not Available [facility] ([facility]) [address] [facility], [place], [address], 06/15/2025 08:07:35 06/14/20 25 06/14/2025 COMP. METAB OLIC PANEL (14) creatinine 0.99 mg/dL 0.76-1 .27 normal Not Available [facility] ([facility]) [address] [facility], [place], [address], 06/15/2025 08:07:35 06/14/20 25 06/14/2025 COMP. METAB OLIC PANEL (14) eGFR 93 mL/mi n/1.7 3 >59 normal Not Available [facility] ([facility]) [address] [facility], [place], [address], 06/15/2025 08:07:35 06/14/20 25 06/14/2025 COMP. METAB [...] at [email or web address] [email or web address]. org. Not Available [facility] ([facility]) [address] [facility], [place], [address], 06/15/2025 08:07:35 06/14/20 25 06/14/2025 COMP. METAB OLIC PANEL (14) BUN/creatini ne ratio 20 9-20 normal Not Available [facility] ([facility] [address] [place], [address], 06/15/2025 08:07:35 06/14/20 25 06/14/2025 COMP. METAB OLIC PANEL (14) sodium 138 mmol/ L 134-14 4 normal Not Available [facility] ([facility]) [address] [facility], [place], [address], 06/15/2025 08:07:35 06/14/20 25 06/14/2025 COMP. METAB OLIC PANEL (14) potassium 3.7 mmol/ L 3.5-5. 2 normal Not Available [facility] ([facility]) [address] [facility], [place], [address], 06/15/2025 08:07:35 06/14/20 25 06/14/2025 COMP. METAB OLIC PANEL (14) chloride 99 mmol/ L 96-106 normal Not Available [facility] ([facility]) [address] [place], [address], 06/15/2025 08:07:35 06/14/20 25 06/14/2025 COMP. METAB OLIC PANEL (14) carbon dioxide, total 28 mmol/ L 20-29 normal Not Available [facility] ([facility]) [address] [place], [address], 06/15/2025 08:07:35 06/14/20 25 06/14/2025 COMP. METAB OLIC PANEL (14) calcium 9.9 mg/dL 8.7-10 .2 normal Not Available [facility] ([facility]) [address] [place], [address], 06/15/2025 08:07:35 06/14/20 25 06/14/2025 COMP. METAB OLIC PANEL (14) protein, total 6.7 g/dL 6.0-8. 5 normal Not Available [facility] ([facility]) [address] [facility] [place], [address], 06/15/2025 08:07:35 06/14/20 25 06/14/2025 COMP. METAB OLIC PANEL (14) albumin 4.4 g/dL 4.1-5. 1 normal Not Available [facility] ([facility]) [address] [facility] [place], [address], 06/15/2025 08:07:35 06/14/20 25 06/14/2025 COMP. METAB OLIC PANEL (14) globulin, total 2.3 g/dL 1.5-4. 5 Not Available [facility] ([facility]) [address] [place] [place], [id number], 06/15/2025 08:07:35 06/14/20 25 06/14/2025 COMP. METAB OLIC PANEL (14) bilirubin, total 0.5 mg/dL 0.0-1. 2 normal Not Available [facility] ([facility]) [address] [facility] [place], [address], 06/15/2025 08:07:35 06/14/20 25 06/14/2025 COMP. METAB OLIC PANEL (14) alkaline phosphatase 80 IU/L 47-123 normal Not Available [facility] ([facility]) [address] [facility] [place], [address], 06/15/2025 08:07:35 06/14/20 25 06/14/2025 COMP. METAB OLIC PANEL (14) AST (SGOT) 25 IU/L 0-40 normal Not Available [facility] ([facility]) [address] [facility] [place], [address], 06/15/2025 08:07:35 06/14/20 25 06/14/2025 COMP. METAB OLIC PANEL (14) ALT (SGPT) 25 IU/L 0-44 normal Not Available [facility] ([facility]) [address] [facility], [place], [address], 06/15/2025 08:07:35 06/14/20 25 06/15/2025 VITAM IN [...] um and D. Jenny owen [place]: [facility] . 2. Reese ruiz MF, Charleen conley [place], Tae off-F errar i DENT, et al. Evalu ation , treat ment, and preve ntion of vitam in D defic iency : an Endoc rine Socie ty clini david pract ice guide line. JCEM. 2010; 96(7) :1911 -30. Not Available [facility] ([facility]) [address] [facility], [place], [address], 06/15/2025 08:07:37 06/14/20 25 06/14/2025 MAGNE SIUM magnesium 2.1 mg/dL 1.6-2. 3 normal Not Available [facility] ([facility]) [address] [facility], [place], [address], 06/15/2025 08:07:37 11/25/19 25 elect femi fuller am No observ ation record ed. [id number] In-Office Order Internal Use Only DO Not Attach Compendium DO Not Attach Compendium, Do Not Delete/merge, [id number] 11/24/2024 12:41:19 11/26/19 25 11/24/2024 elect rocar diogr am No observ ation record ed. BARCODE Not Available 2024 16:35:17 12/04/19 25 11/27/2024 cardi ac monit or No observ ation record ed. [facility] ([facility]) [address] [facility], [place], [address], 12/06/2024 10:54:49 12/21/19 25 elect rocar diogr am No observ ation record ed. In-Office Order Internal Use Only DO Not Attach Compendium DO Not Attach Compendium, Do Not Delete/merge, [id number] 12/20/2024 15:15:50 12/22/19 25 12/20/2024 elect rocar diogr am No observ ation record ed. BARCODE Not Available 2024 10:23:56 01/28/20 25 elect rocar diogr am No observ ation record ed. [email or web address] In-Office Order Internal Use Only DO Not Attach Compendium DO Not Attach Compendium, Do Not Delete/merge, [id number] 01/27/2025 08:18:19 01/28/20 25 01/27/2025 elect rocar diogr am No observ ation record ed. BARCODE Not Available 2024 09:34:16 03/07/20 25 elect rocar diogr am No observ ation record ed. [email or web address] In-Office Order Internal Use Only DO Not Attach Compendium DO Not Attach Compendium, Do Not Delete/merge, [id number] 03/07/2025 14:19:45 03/07/20 25 03/07/2025 elect rocar diogr am No observ ation record ed. BARCODE Not Available 2024 17:52:14 05/13/20 25 elect rocar diogr am No observ ation record ed. [email or web address] In-Office Order Internal Use Only DO Not Attach Compendium DO Not Attach Compendium, Do Not Delete/merge, [id number] 05/13/2025 14:16:07 05/17/20 25 05/13/2025 elect rocar diogr am No observ ation record ed. [email or web address] Not Available 05/17 13:25:17 06/14/20 johana fuller am No observ ation record ed. In-Office Order Internal Use Only DO Not Attach Compendium DO Not Attach Compendium, Do Not Delete/merge, [id number] 06/14/2025 10:44:40 06/15/20 25 06/14/2025 johana fuller am No observ ation record ed. [email or web address] Not Available 06/16 13:24:09 Result Notes None recorded. Problems Name Problem SNOMED Code Status Onset Date Resolution Date Notes Provider Name and Address Organization Details Recorded Time Obstructiv e sleep apnea syndrome 69685993 Active on biPAP Cee Raygoza PA-C [address] [place] [address], [phone], [facility] 4 12:16:31 Mixed hyperlipid emia 390901868 Active 2023 Natasha aceves [facility] 4 15:20:19 Benign essential hypertensi on 6577534 Active 2023 Natasha aceves [facility] 4 15:20:19 Dyspnea 805042478 Active 2023 Natasha aceves [facility] 4 15:20:20 Chest pain 25445054 Active 2023 Natasha aceves [facility] 4 15:20:22 Chronic combined systolic and diastolic heart failure 069467252431 100 Active 2023 Natasha aceves [facility] 4 15:20:23 Type 1 diabetes mellitus 38422100 Active 2023 Cee Raygoza PA-C [address] [place] [address], [phone], [facility] 4 12:15:11 Chronic obstructiv e pulmonary disease 80639044 Active 2023 Cee Raygoza PA-C [address] [place] [address], [phone], [facility] 4 12:16:46 Problem Notes None recorded. Procedures Surgical History Date Name Laterality Status Provider Name and Address Organization Details Recorded Time Hernia Repair completed Laura Trivedi [facility] 03/01/2024 16:37:06 Imaging Results None recorded. Procedure Notes None recorded. Medical Equipment None Reported. Allergies Allergen ID Allergen Name Allergen Category Reaction Reaction Severity Criticality Documentation Date Start Date Code Code System Note Provider Name and Address Organization Details Recorded Time 730013 Compazine medicatio n Not available Not available Not available 03/01/202450331 6 RxNorm sever e muscl e spasm Laura Encarnacion [facility] 4 16:29:57 839091 Imitrex medicatio n Not available Not available Not available 03/01/2024 18442 3 RxNorm Laura Encarnacion [facility] 4 16:30:08 271594 Motrin medicatio n Not available Not available Not available 03/01/202464871 8 RxNorm can' t take- harmf ul to my kidne kelly Encarnacion [facility] 4 16:30:51 732040 Non-stero idal anti-infl ammatory agent (substanc e) medicatio n other Not available Not available 03/01/2024 84295 5008 SNOMED Kortney Sevilla [facility] 4 12:49:07 395744 Toradol medicatio n Not available Not available Not available 03/01/2024 05350 RxNorm can' t take- harmf ul to my kidne kelly Encarnacion [facility] 4 16:31:19 935914 Wellbutri n medicatio n Not available Not available Not available 03/01/2024 78689 RxNorm suici daysi Laura Encarnacion [facility] 4 16:32:29 837077 codeine medicatio n itching Not available Not available 03/01/2024 2670 RxNorm Kortney Sevilla [facility] 4 12:49:07 843274 ibuprofen medicatio n other Not available Not available 03/03/2024 5640 [facility] 12:[facility]:07 164051 POLLEN EXTRACTS environme nt,medica tion Not available Not available Not available 03/03/2024 08912 6 [facility] 4 12:49:07 798084 cat dander environme nt Not available Not available Not available 03/03/2024 [facility] 4 12:49:07 485060 mold extract environme nt Not available Not available Not available 03/03/2024 88311 8 RxNorm Kortney aceves, [facility] 4 12:49:07 740421 cigarette smoke environme nt Not available Not available Not available 03/03/2024 Kortney Sevilla [facility] 4 12:49:07 569417 hydralazi ne medicatio n dizziness Not available [...] Updated DateTime 12/20/2024 182.88 cm 18.1 kg/m2 20258.89 g 61 /min 150/84 mm[Hg] Geri Ortega [facility]. 12/20/2024 15:32:59 Date Recorded Body height Body mass index (BMI) Body weight Heart rate Systolic And Diastolic Provider Name and Address Organization Details Last Updated DateTime 01/27/2025 182.88 cm 32.4 kg/m2 856180.2 9 g 57 /min 146/90 mm[Hg] [facility] 01/27/2025 08:29:38 Date Recorded Body height Body mass index (BMI) Body weight Oxygen saturation Heart rate Systolic And Diastolic Provider Name and Address Organization Details Last Updated DateTime 182.88 cm 32.5 kg/m2 452044. 45 g 97 % 69 /min 162/88 mm[Hg] [facility] 14:31:35 Date Recorded Systolic And Diastolic Provider Name and Address Organization Details Last Updated DateTime 05/13/2025 150/82 mm[Hg] BOGDAN Tomlinson-Gabby [address] [place] [address], [phone] 05/13/2025 14:47:45 Date Recorded Body height Body mass index (BMI) Body weight Oxygen saturation Heart rate Systolic And Diastolic Provider Name and Address Organization Details Last Updated DateTime 182.88 cm 32.4 kg/m2 358478. 58 g 98 % 67 /min 173/94 mm[Hg] Zari Li [facility] 14:17:33 Date Recorded Systolic And Diastolic Provider Name and Address Organization Details Last Updated DateTime 06/14/2025 136/76 mm[Hg] Cee Raygoza PA-C [address] [place] [address], [phone] 06/14/2025 11:15:55 Date Recorded Body height Body mass index (BMI) Body weight Heart rate Systolic And Diastolic Provider Name and Address Organization Details Last Updated DateTime 06/14/2025 182.88 cm 32.2 kg/m2 399491.7 9 g 66 /min 159/85 mm[Hg] Geri Ortega [facility] 06/14/2025 10:54:33 Social History Question Answer Notes LastModified by Organizat ion Details LastModified Time Tobacco Smoking Status Never Smoker Kortney aceves [facility] 03/03/2024 12:49:23 Do You Have An Advance Directive? No [email or web address] Information not available 03/03/2024 Are You Blind Or Do You Have Difficulty Seeing? No [email or web address] Information not available 03/03/2024 Is Blood Transfusion Acceptable In An Emergency? Yes [email or web address] Information not available 03/03/2024 What Is Your Level Of Caffeine Consumption? Occasional [email or web address] Information not available 03/03/2024 Are You Deaf Or Do You Have Serious Difficulty Hearing? No [email or web address] Information not available 03/03/2024 What Type Of Diet Are You Following? SPECIFIC [email or web address] Information not available 03/03/2024 Which Of Your Hands Is Dominant? Left [email or web address] Information not available 03/03/2024 What Was The Date Of Your Most Recent Tobacco Screening? 06/14/2025 Information not available 06/14/2025 Do You Have Any Pets? Yes Information not available 03/03/2024 What Is Your Relationship Status? Single Information not available 03/03/2024 Has Tobacco Cessation Counseling Been Provided? [email or web address] Information not available 11/05/2024 Sex: Unknown Functional Status Question Answer Note LastModified by Organizat ion Details LastModified Time Do you use any illicit or recreational drugs? No Information not available 10/19/2024 Do you or have you ever used any other forms of tobacco or nicotine? No [email or web address] Information not available 03/03/2024 What is your level of alcohol consumption? None [email or web address] Information not available 03/03/2024 Are you currently employed? No Information not available 03/03/2024 Are you able to care for yourself independently? No [email or web address] Information not available 03/03/2024 What is your exercise level? Occasional [email or web address] Information not available 03/03/2024 Mental Status Question Answer Note LastModified by Organization D etails LastModified Time Do you feel stressed (tense, restless, nervous, or anxious, or unable to sleep at night)? [id number] [email or web address] Information not available 11/24/2024 Family History Relationship Description Onset Age of this Age Resolved Age Notes LastModified by Organization Details LastModified Time Mother Depressive disorder [email or web address] Not available 2023 12:49:12 Unspecified Relation Malignant neoplasm of colon [email or web address] Not available 2023 12:49:12 Unspecified Relation Hyperlipidem ia [email or web address] Not available 2023 12:49:12 Maternal Grandmother Myocardial infarction [email or web address] Not available 03/03 12:49:12 Maternal Grandmother Family history of malignant neoplasm Not available 2023 12:49:12 Maternal Grandmother Hypertensive disorder Not available 2023 12:49:12 Maternal Grandfather Myocardial infarction [email or web address] Not available 03/03 12:49:12 Maternal Grandfather Cerebrovascu lar accident [email or web address] Not available 05/2024 12:49:12 Maternal Grandfather Diabetes mellitus [email or web address] Not available 2023 12:49:12 Father Depressive disorder [email or web address] Not available 2023 12:49:12 Father Diabetes mellitus [email or web address] Not available 2023 12:49:12 Medical History Condition [...] ICD10 Code Diagnosis IMO Codes Diagnosis Note [id number] Shubham Pineda MD [facility] [address] 03/03/2024 12:39:58 03/03/2024 14:27:57 Chronic combined systolic and diastolic heart failure 2098886897 43373 I50.42 Chest pain 48633047 R07. 2 Dyspnea 762429104 R06.02 Benign ess ential hypertension 0304382 I10 Mixed hyperlipidemia 267 030479 E78.2 Type 2 [place] mellitus without complication 675613825 E11.9 [id number] Shubham Pineda MD [facility] [address] 05/31/2024 13:17:52 05/31/2024 14:35:17 Chronic diastolic heart failure 509772201 I50.32 Benign ess ential hypertension 0028283 I10 Mixed hyperlipidemia 267 946215 E78.2 Type 1 [place] mellitus 31201479 E10.9 Edema of l ower extremity 583431798 R60.0 [id number] Shubham Pineda MD [facility] [address] [place] [address] 07/12/2024 09:13:48 07/12/2024 12:10:27 Chronic combined systolic and diastolic heart failure 1599001268 37111 I50.42 STOP lisinopril 10mg tablets dailySTOP amlodipine 7.5mg tablets dailySTART Entresto 24-26mg tablet twice dailySTART Jardiance 10mg tablets dailyConti nue metoprolol succinate 25mg tablets at bedtime Benign ess ential hypertension 5323868 I10 Type 1 [place] mellitus 36248846 E10.9 Chronic ob structive pulmonary disease 49732048 J44.9 Mixed hyperlipidemia 267 260857 E78.2 Dyspnea 355336154 R06.00 History of syncope 55379 82451 76193 Z86.79 [id number] Shubham Pineda MD [facility] [address] [address] 09/16/2024 14:58:36 09/16/2024 16:11:08 Chronic combined systolic and diastolic heart failure 9975416016 85405 I50.42 Benign ess ential hypertension 9222290 I10 Mixed hyperlipidemia 267 647973 E78.2 Chronic ob structive pulmonary disease 63453628 J44.9 Type 1 [place] mellitus 53598318 E10.9 Obstructiv e sleep apnea syndrome 69093872 G47.33 Syncope 745257539 R55 [id number] Shubham Pineda MD [facility] [address] [address] 10/19/2024 08:03:44 10/19/2024 10:50:35 Chronic combined systolic and diastolic heart failure 6511524576 98005 I50.42 STOP Entresto 0.5 tablets twice dailySTART losartan 12.5mg tablets in the AMContinue metoprolol succinate 12.5mg tablets at bedtime Benign ess ential hypertension 7564405 I10 Chronic ob structive pulmonary disease 02661175 J44.9 Mixed hyperlipidemia 267 296438 E78.2 Obstructiv e sleep apnea syndrome 50342976 G47.33 Type 1 [place] mellitus 15757469 E10.9 Increased thirst 4420366 03 R63.1 History of syncope 25116 42102 42384 Z86.79 [id number] Shubham Pineda MD [facility] [address] [address] 11/05/2024 14:36:23 11/05/2024 15:32:06 Chronic combined systolic and diastolic heart failure 3834374861 27131 I50.42 Chronic ob structive pulmonary disease 02628394 J44.9 Benign ess ential hypertension 7153293 I10 Type 1 [place] mellitus 40747949 E10.9 Mixed hyperlipidemia 267 533970 E78.2 Edema of l ower extremity 756163241 R60.0 [id number] Shubham Pineda MD [facility] [address] [address] 11/24/2024 12:34:31 11/24/2024 13:26:09 Chronic combined systolic and diastolic heart failure 3402985433 62858 I50.42 Benign ess ential hypertension 7464633 I10 Mixed hyperlipidemia 267 552429 E78.2 Obstructiv e sleep apnea syndrome 84572121 G47.33 Type 1 [place] mellitus 40787676 E10.9 Hyperkalemia 45344674 E8 7.5 [id number] MD BERNARDINO [facility] [address] [place] [address] 12/20/2024 15:06:18 12/20/2024 17:22:12 Benign essential hypertension 3014663 I10 STOP Losartan 50mg BIDSTART lisinopril 20mg tablets dailyConti nue spironolac tone 50mg tablets dailyConti nue metoprolol succinate 25mg tablets daily Chronic co mbined systolic and diastolic heart failure 7240307257 79946 I50.42 STOP Losartan 50mg BIDSTART lisinopril 20mg tablets dailyConti nue spironolac tone 50mg tablets dailyConti nue metoprolol succinate 25mg tablets dailyConti nue jardiance 10mg tablets daily Type 1 [place] betes mellitus 26231845 E10.9 Mixed hyperlipidemia 267 862772 E78.2 History of syncope 85341 99199 48463 Z86.79 Labile ess ential hypertension 386213808 I10 Fatigue 32865024 R53.83 [id number] Shubham Pineda MD [facility] [address] [address] 01/27/2025 08:09:54 01/27/2025 09:03:44 Benign essential hypertension 2534397 I10 Type 1 [place] betes mellitus 93775834 E10.9 Mixed hyperlipidemia 267 192023 E78.2 [id number] Shubham Pineda MD [facility] [address] [address] 03/07/2025 14:18:27 03/07/2025 15:46:25 Chronic combined systolic and diastolic heart failure 9008328838 27907 I50.42 Dilated cardiomyopathy 671937344 I42.0 46030 Dyspnea 439078249 R06.02 43330 [id number] Shubham Pineda MD [facility] [address] [place] [address] 05/13/2025 13:48:54 05/13/2025 15:03:56 Benign essential hypertension 2373323 I10 Mixed hyperlipidemia 267 281094 E78.2 Type 1 [place] betes mellitus 81539546 E10.9 Chronic ob structive pulmonary disease 65811777 J44.9 Obstructiv e sleep apnea syndrome 50523241 G47.33 Edema of l ower extremity 405925043 R60.0 19131 [id number] Cee Raygoza PA-C [facility] [address] [facility],[address] [place] [address] 06/14/2025 10:44:18 06/14/2025 11:25:33 Benign essential hypertension 2893289 I10 Mixed hyperlipidemia 267 361256 E78.2 Chronic ob structive pulmonary disease 48328314 J44.9 Type 1 [place] mellitus 97010459 E10.9 Dilated cardiomyopathy 931375622 I42.0 33981 Fatigue 96121591 R53.83 01962380 Health Concerns Section Related Observation LastModified by Organization Detai ls LastModified Time None Recorded Concern Status LastModified by Organization Details LastModified Time None Recorded Advance Directives Directive N: Payers Insurance Date Sequence Insurance Name Policy Number Policy Rodriguez Covered Member ID Rodriguez Member ID Guarantor Name 06/14/2025 1 [place] [employer] Shubham Pappas [id number] Shubham Pappas 06/14/2025 2 [place]ubham Pappas [id number] Shubham Pappas Notes Date Note Type Note [...] which brought him to the ER in [place]. He states he taken a THC pill [...] night, lower extremity edema. Cee Raygoza PA-C [address] [place] [address], [address], [facility] 12/21/2024 12:01:14 05/13/2025 text/html ROS as noted [...] night, lower extremity edema. Cee Raygoza PA-C [address] [place] [address], [address], [facility]. 05/13/2025 15:14:54 06/14/2025 text/html ROS as [...] 11/27/24, Lipid 12/07/24 Cee Raygoza PA-C [address] [place], [address], [facility]. 06/14/2025 11:47:55
--- OUTSIDE RECORDS SUMMARY | 2025-07-14 16:00 | XMS_ITS | Data Portability ---
Author Organization [place] [facility] Address [facility] [address] Care Team Providers Care Order Takers Supervisor Name Role Phone HIMANSHULizabeth LATONYA Primary Care Provider [phone] JOHANNY ARCEO Primary Care Provider RYLEY RODRIGUEZ OTHER LAVERNE TRINH Industrial Hygiene Engineer Assessment Encounter Date Assessment Date Assessment LastModified [...] care were discussed with the Virtual Physician intelligence operations specialist [facility], Dr. Rascon. Pt advised to take 40meq of Potassium daily in either a single or divided dose depending on tolerance. Pt has 20meq in the home at this time so script noted needed. Pt given voltran gel for his hip pain, pt's allergy to voltran is an intolerace related to nursing home use of oral NSAIDs resulting in GIB. [...] I have asked him to contact his director biologics as he reports he will be having [...] supposed to hear from case management at [facility], I also explained that he [...] visit Thank you for your visit with [facility] today. We cannot always find the exact [...] in your condition between 8am-10pm, please call [facility] at [phone] to help navigate your care. In order [...] symptoms. Time On Scene with Patient: 00:37:26 [email or web address] Not available 11/04/2021 15:58:15 11/06/2021 11/06/2021 Proper Personal Protective Equipment (PPE), including gloves, eye protection and masks were donned and doffed appropriately and all equipment cleaned using approved technique with germicidal disposable wipes prior to and after care of this patient according to [facility] infection prevention protocols. Overview/History: 46 yo male [...] pertinent in my medical decision making today. [email or web address] Not available 11/06/2021 09:29:59 Plan of Treatment Reminders Order Date Submit Date Provider Last Modified By Organization Details Last Modified Time Details Appointments None recorded. Lab unlisted lab - covid-19 (novel coronavirus ) PCR 2021 022 [place] [address] [facility] (Centralized Electronic Ordering - All Locations), Patient Can Go To The Location Of Their Choice, [address] 2 10:14:48 BMP + ionized calcium, serum or plasma 2020 [facility], [address] [place], [address], 17:17:37 BMP + ionized calcium, serum or plasma 2020 021 [facility] [address] [place], [address], 2 05:01:21 CBC w/ auto diff - Collected by [facility] 2020 [facility]), Patient Can Go To The Location Of Their Choice, [id number] 00:44:12 Referral None recorded. Procedures None recorded. Surgeries None recorded. Imaging XR, chest, 2 view - Ordered by [facility] 2021 022 [facility] ([facility]), [address] [place], [address], 2 17:35:38 XR, foot, 3 or more view 2020 [facility] ([facility]), [address] [place], [address], 1 08:03:17 Medication Orders prednisone 10 mg tablet 2021 022 [email or web address] Not available 16:27:12 prednisone 20 mg tablet 2021 022 esther [email or web address] [facility], [address] [place], [place], [id number], 14:20:21 azithromyci n 250 mg tablet 2021 022 [facility]14521, [address] [place], [place], [id number], 14:11:40 Voltaren Arthritis Pain 1 % topical gel 2020 021 [facility]63150, [address] [place], [place], [id number], 14:27:54 Patient TargetsNo targets recorded. Patient Instructions Encounter Date Encounter Id Patient Instructions Last Modified By Organization Details Last Modified Time 03/03/2021 [id number] gastroesophageal reflux disease (GERD): care instructions [email or web address] Not available 03/03/2021 14:03:36 Thank you for yo ur visit [facility]. We cannot always find the exact cause of your symptoms during your initial visit. Your potassium level was found to be low at 2.9 on exam. Please take 40meq of Potassium daily either in a single dose or a divided dose for the next 3 days, starting today. [facility] will come out to reevaluate your potassium [...] condition between 8am-10pm, please call [facility] at [phone] to help navigate your care. kevin Not [...] 12-17 [email or web address] Not available 03/03/2021 13:51:42 03/06/2021 [id number] WE CAME TO SEE Y OU TODAY [...] LABS IN A WEEK. PLEASE CALL YOUR PHYSICIAN/INTERNIST THEY ARE THE ONE THAT PRESCRIBES THE LASIX AND YOU MAY NEED TO BE ON PUBLIC HEALTH REGISTRAR POTASSIUM SUPPLEMENTS WHICH [facility] CANNOT PRESCRIBE- THIS WOULD NEED TO COME FROM EITHER PCP OR PHYSICIAN/INTERNIST [email or web address] Not available 03/06/2021 10:18:00 11/04/2021 [id number] cough: care instructions [email or web address] Not available 11/04/2021 14:08:13 You have been se en by [facility] for productive cough. Upon assessment we found abnormal lung sounds. Chest x-ray was ordered to rule out pneumonia. Covid 19 test pending and you will be contacted if results are positive. Prednisone and Azithromycin was faxed over to your pharmacy. Please follow up with PCP or seek emergency service with worsening of symptoms, shortness of breath, chest pain, fever over 105 degrees. [email or web address] Not available 11/04/2021 14:15:25 11/06/2021 [id number] Inhaler Instruct ions Before use, you need [...] after cleaning actually helps it work better. [email or web address] Not available 11/06/2021 08:56:33 Reason for Referral [...] Go To The Location Of Their Choice, [address] 03/04/2021 00:44:12 03/03/2003/04/2021 COMPL ETE CBC WITH DIFF eo 2.1 % (0-6) Not Available [facility] (Centralized Electronic Ordering - All Locations) Patient Can Go To The Location Of Their Choice, [address] 03/04/2021 00:44:12 03/03/2003/04/2021 COMPL ETE CBC WITH DIFF baso 0.3 % (0-2) Not Available [facility] (Centralized Electronic Ordering - All Locations) Patient Can Go To The Location Of Their Choice, [address] 03/04/2021 00:44:12 03/03/2003/04/2021 COMPL ETE CBC WITH DIFF imm gran 0.4 % Not Available [facility] (Centralized Electronic Ordering - All Locations) Patient Can Go To The Location Of Their Choice, [facility] 03/04/2021 00:44:12 03/03/2003/03/2021 BMP + IONIZ ED CALCI UM, SERUM OR PLASM A glu 144 mg/dL 70-105 Not Available [facility] [place], [address], 03/03/2021 13:50:34 03/03/20 21 03/03/2021 BMP + IONIZ ED CALCI UM, SERUM OR PLASM A BUN 24 mg/dL 8-26 Not Available [facility] [address] [place], [address], 03/03/2021 13:50:34 03/03/20 21 03/03/2021 BMP + IONIZ ED CALCI UM, SERUM OR PLASM A crea 1.4 mg/dL 0.6-1. 3 Not Available [facility] [address] [place], [address], 03/03/2021 13:50:34 03/03/20 21 03/03/2021 BMP + IONIZ ED CALCI UM, SERUM OR PLASM A Na 138 mmol/ L 138-14 6 Not Available [address], [address], 03/03/2021 13:50:34 03/03/20 21 03/03/2021 BMP + IONIZ ED CALCI UM, SERUM OR PLASM A K 2.9 mmol/ L 3.5-4. 9 Not Available [address], [address], 03/03/2021 13:50:34 03/03/20 21 03/03/2021 BMP + IONIZ ED CALCI UM, SERUM OR PLASM A cL 91 mmol/ L 98-109 Not Available [address], [address], 03/03/2021 13:50:34 03/03/20 21 03/03/2021 BMP + IONIZ ED CALCI UM, SERUM OR PLASM A TCO2 31 mmol/ L 24-29 Not Available [address], [address], 03/03/2021 13:50:34 03/03/20 21 03/03/2021 BMP + IONIZ ED CALCI UM, SERUM OR PLASM A angap 20 mmol/ L 10-20 Not Available [address], [address], 03/03/2021 13:50:34 03/03/20 21 03/03/2021 BMP + IONIZ ED CALCI UM, SERUM OR PLASM A ica 1.23 mmol/ L 1.12-1 .32 Not Available [address], [address], 03/03/2021 13:50:34 03/03/20 21 03/03/2021 BMP + IONIZ ED CALCI UM, SERUM OR PLASM A HCT 40 %pcv 38-51 Not Available [address], [address], 03/03/2021 13:50:34 03/03/20 21 03/03/2021 BMP + IONIZ ED CALCI UM, SERUM OR PLASM A Hb 13.6 g/dL 12-17 Not Available [address], [address], 03/03/2021 13:50:34 03/06/20 21 03/06/2021 BMP + IONIZ ED CALCI UM, SERUM OR PLASM A glu 183 mg/dL 70-105 Not Available [address], [address], 03/08/2021 17:17:37 03/06/20 21 03/06/2021 BMP + IONIZ ED CALCI UM, SERUM OR PLASM A BUN 19 mg/dL 8-26 Not Available [address], [address], 03/08/2021 17:17:37 03/06/20 21 03/06/2021 BMP + IONIZ ED CALCI UM, SERUM OR PLASM A crea 1.2 mg/dL 0.6-1. 3 Not Available [address], [address], 03/08/2021 17:17:37 03/06/20 21 03/06/2021 BMP + IONIZ ED CALCI UM, SERUM OR PLASM A Na 138 mmol/ L 138-14 6 Not Available [address], [address], 03/08/2021 17:17:37 03/06/20 21 03/06/2021 BMP + IONIZ ED CALCI UM, SERUM OR PLASM A K 3.3 mmol/ L 3.5-4. 9 Not Available [address], [address], 03/08/2021 17:17:37 03/06/20 21 03/06/2021 BMP + IONIZ ED CALCI UM, SERUM OR PLASM A cL 91 mmol/ L 98-109 Not Available [address], [address], 03/08/2021 17:17:37 03/06/20 21 03/06/2021 BMP + IONIZ ED CALCI UM, SERUM OR PLASM A TCO2 31 mmol/ L 24-29 Not Available [address] [place], [address], 03/08/2021 17:17:37 03/06/20 21 03/06/2021 BMP + IONIZ ED CALCI UM, SERUM OR PLASM A angap 21 mmol/ L 10-20 Not Available [address], [address], 03/08/2021 17:17:37 03/06/20 21 03/06/2021 BMP + IONIZ ED CALCI UM, SERUM OR PLASM A ica 1.17 mmol/ L 1.12-1 .32 Not Available [address], [address], 03/08/2021 17:17:37 03/06/20 21 03/06/2021 BMP + IONIZ ED CALCI UM, SERUM OR PLASM A HCT 39 %pcv 38-51 Not Available [address] [place], [address], 03/08/2021 17:17:37 03/06/20 21 03/06/2021 BMP + IONIZ ED CALCI UM, SERUM OR PLASM A Hb 13.3 g/dL 12-17 Not Available [address], [address], 03/08/2021 17:17:37 11/05/19 22 11/06/2021 COVID -19 [...] t repor dottie to the [facility]. This test has been autho rized by the FDA under an Emerg ency Use Autho rizat ion (EUA) for use by autho rized labor atori es. Test perfo rmed by [facility] [employer] at the [facility] and Annmarie claros, [address] [place] [address] . CLIA ID: [id number] , CAP: [id number] 96. Medic al Direc tor: Caitlin Wells, PhD FACMG (NOTE ) The [facility] SARS- CoV-2 Real- time Rever se [...] limit ed to the [facility] Shamika Francis orfransisca at the [facility] which is certi fied under the [...] Go To The Location Of Their Choice, [address] 11/06/2021 09:19:20 03/15/20 21 XR, foot, 3 or more view No observ ation record ed. [facility] [employer]) [address] [facility], [place], [address], 03/15/2021 08:28:37 11/05/19 22 11/04/2021 XR, chest [...] D.O. 022 5:20:3 6 PM EDT. [email or web address] [employer] [facility] [address] [facility] [address], [place], [address], 11/05/2021 11:18:22 Result Notes Documentation Provider Name [...] Address Organization Details Recorded Time Diabetes mellitus 39147661 Active [address] OLGU[address] NP [address], [place], [address], [place] [facility] 0 14:35:03 Problem Notes None recorded. Procedures Surgical History Date Name Laterality Status Provider Name and Address Organization Details Recorded Time 03/06/20 21 Venipuncture - DH completed DALIA URBINA NP [address], [place], [address], [place] [facility] 03/06/2021 10:30:22 03/03/20 21 Venipuncture - DH completed GABY APARICIO NP [address], [place], [address], [place] [facility] 03/03/2021 13:40:38 03/03/20 21 ECG Interpretation - completed GABY APARICIO NP [address], [place], [address], [place] [facility] 03/03/2021 14:30:14 06/20/20 20 Venipuncture - completed BOGDAN REHMAN [address], [place], [address], [place] [facility] 06/20/2020 15:33:27 06/17/20 20 Venipuncture - completed AVE OLGUIN NP [address] [place], [address], [place] [facility] 06/17/2020 15:04:05 Imaging Results None recorded. Procedure Notes None recorded. Medical Equipment None Reported. Allergies Allergen ID Allergen Name Allergen Category Reaction Reaction Severity Criticality Documentation Date Start Date Code Code System Note Provider Name and Address Organization Details Recorded Time 264262 Compazine medicatio n Not available Not available Not available 06/17/202001980 [address] OLGUIN NP [address] [place], [address], [place] [facility] 0 14:34:21 104728 Non-stero idal anti-infl ammatory agent (substanc e) medicatio n Not available Not available Not available 06/17/[address] OLGUIN NP [address], [place], [address], [place] [facility] 0 14:34:31 143485 Wellbutri n medicatio n Not available Not available Not available 06/17/[address] OLGUIN, LISA [address], [facility] [place], [address] , [place] [facility] 0 14:34:46 Medications Name Sig Start Date Stop Date Status Note LastModified by Organization Details LastModified Time [facility] ketamine 10% pain en APPLY 4-5 GRAMS [...] Available Not Available Not Available 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 Not Available Not Available Not Available [...] Vitals Date Recorded Body temperature Oxygen saturation Respiratory rate Heart rate Systolic And Diastolic Provider Name and Address Organization Details Last Updated DateTime 2 98.2 [degF] 93 % 18 /min 82 /min 118/60 mm[Hg] Not Available [facility] 2 13:51:24 Date Recorded Respiratory rate Oxygen saturation Body temperature Heart rate Systolic And Diastolic Provider Name and Address Organization Details Last Updated DateTime 2 22 /min 93 % 98.4 [degF] 73 /min 136/82 mm[Hg] Not Available [facility] 2 08:52:26 Date Recorded Respiratory rate Oxygen saturation Body temperature Heart rate Systolic And Diastolic Provider Name and Address Organization Details Last Updated DateTime 1 22 /min 92 % 98.3 [degF] 88 /min 118/76 mm[Hg] Not Available [facility] 1 13:16:50 Date Recorded Heart rate Oxygen saturation Respiratory rate Body temperature Systolic And Diastolic Provider Name and Address Organization Details Last Updated DateTime 1 84 /min 97 % 18 /min 98.4 [degF] 132/78 mm[Hg] Not Available [facility] 1 10:02:01 Date Recorded Heart rate Oxygen saturation Body temperature Respiratory rate Systolic And Diastolic Provider Name and Address Organization Details Last Updated DateTime 1 84 /min 98 % 97.4 [degF] 22 /min 122/84 mm[Hg] Not Available [facility] 1 11:06:07 Social History Question Answer Notes LastModified by Organizat ion Details LastModified Time Tobacco Smoking Status Never Smoker BOGDAN REHMAN [address] [place], [address], [place] [facility] 06/20/2020 11:40:47 What Is Your Code Status? Full Code Information not available 06/20/2020 Within The Past 12 Months, Has It Happened That The Food You Bought Just Didn't Last And You Didn't Have Money To Get More. No [email or web address] Information not available 06/20/2020 Within The Past 12 Months, Have You Worried That Your Food Would Run Out Before You Got Money To Buy More. No [email or web address] Information not available 06/20/2020 Fall Risk: Do You Feel Unsteady When Standing Or Walking? Yes Information not available 06/20/2020 We Know That How And When People Interact With Friends And Family Can Be Very Different From Person To Person. How Often Do You Have The Opportunity To See Or Talk To People That You Care About And Feel Close To? (Ex: Talking To Friends On The Phone Or Visiting Friends Or Family Or Going To [employer] Or Club Meetings) 3 Or 4 Times Per Week [email or web address] Information not available 06/20/2020 We Know From Many Of Our Patients That Covering All Of Their Costs Can Be Difficult At Times. This Can Cause Stress And Impact Health. In The Past Year, Have You Been Unable To Get Any Of The Following When It Was Really Needed? No [email or web address] Information not available 06/20/2020 What Is Your Housing Situation Today? I Have Housing Information not available 06/20/2020 Would You Like Help Connecting To Resources? None [email or web address] Information not available 06/20/2020 Sex: Unknown Functional Status None recorded. Mental Status None recorded. Family History Nothing Reported. Medical History Condition Response Diabetes Y Coronary Artery Disease N High Cholesterol Y Pulmonary Embolism N Cancer N Hypertension Y Stroke N COPD N Depression Y Asthma Y Kidney Disease N Past Encounters Encounter ID Performer Location Encounter Start Date Encounter Closed Date Diagnosis/Indication Diagnosis SNOMED-CT Code Diagnosis ICD10 Code Diagnosis IMO Codes Diagnosis Note [id number] A[address] OLGUIN NP [facility] [address] [place] [address] 06/17/2020 13:36:00 06/19/2020 01:01:28 Syncope 217495291 R55 Hypokalemia 74372294 E87 .6 Hypoxia 820947048 G47.34 [id number] BOGDAN REHMAN [facility] [address] [place] [address] 06/20/2020 11:22:36 06/21/2020 09:24:55 Pneumonia 049382636 J18.9 Hypokalemia 70024061 E87 .6 [id number] GABY APARICIO NP [facility] [address] [place] [address] 03/03/2021 13:10:48 03/06/2021 13:14:46 Hyperglycemia 51298720 R73.9 Type 1 [place] mellitus 91920256 E10.9 Pain of ri ght hip joint 3825150239 72316 M25.551 Neuropathy 978856839 G62 .9 Gastroesop hageal reflux disease 351914979 K21.9 Hypokalemia 89114423 E87 .6 [id number] DALIA URBINA NP [facility] [address] [place] [address] 03/06/2021 09:59:06 03/06/2021 14:11:50 Hypokalemia 49694094 E87.6 Type 1 [place] mellitus 98762569 E10.8 [id number] BOGDAN FORTUNE [facility] [address] [place] [address] 03/14/2021 10:59:36 03/15/2021 20:11:28 Sprain of interphalangeal joint of toe 24847152 S93.509A Hypokalemia 08025383 E87 .6 Gastroesop hageal reflux disease without esophagitis 437350043 K21.9 [id number] Melissa Guajardo NP [facility] [address] [place] [address] 11/04/2021 13:45:05 11/06/2021 19:57:33 Acute exacerbation of chronic obstructive pulmonary disease 343621639 J44.1 Cough 07976296 R05.1 Exposure t o communicable disease 728608060 Z20.822 [id number] BOGDAN Montiel [facility] [address] [place] [address] 11/06/2021 08:47:37 11/06/2021 19:57:43 Health Concerns Section Related Observation LastModified by Organization Detai ls LastModified Time None Recorded Concern Status LastModified by Organization Details LastModified Time None Recorded Advance Directives Directive None Recorded Payers Insurance Date Sequence Insurance Name Policy Number Policy Rodriguez Covered Member ID Rodriguez Member ID Guarantor Name 06/16/2020 1 *SELF PAY* Shubham Pappas [id number] Shubham Pappas 06/16/2020 1 [employer] (MEDICARE REPLACEMENT/A DVANTAGE - HMO) Shubham Pappas [id number] Shubham Pappas 11/06/2021 2 [place] Shuhbam Pappas [id number] Shubham Pappas 11/04/2021 1 MEDICARE B-[place]: [facility] [employer] Shubham Pappas [id number] Shubham Pappas Notes Date Note Type Note [...] the pain briefly. GABY APARICIO, LISA [address], [place], [address], [place] [facility] 03/03/2021 15:32:31 03/06/2021 text/html This is a 45-year-old male that is known to [facility], new to this provider. His medical history significant for depression, diabetes, asthma, hyperlipidemia, hypertension and he reports good. He is no longer following with his primary care provider over a disagreement. He is not yet established care with a new PCP. He does have an appointment with endocrinology today. He was seen earlier this week by [facility] for complaints of hip pain and possible [...] 03/03 which was the last day that [facility] was out to see him. He went there with complaints of shortness of breath, he had a normal CT scan of the chest. He is also given muscle relaxers for his thigh pain and reassured that he did not show evidence of a blood clot. Case management at [facility] is supposed to also follow up with the patient to try and help him establish care with a PCP. DALIA URBINA NP [address], [place], [address], [place] [facility] 03/06/2021 12:02:59 03/14/2021 text/html 45 y/o M [...] his foot. BOGDAN FORTUNE [address], [place], [address], [place] [facility] 03/14/2021 12:08:27 11/04/2021 text/html General HPI Template [...] tested. Melissa Guajardo NP [address], [place], [address], [place] [facility] 11/04/2021 15:58:34 11/06/2021 text/html General HPI Template - DHReported by Patient 46 yo male new to provider known to [facility] 2 days ago for ?COPD exac/acute bronchCXR [...] of intubation BOGDAN Montiel [address], [place], [address], [place] [facility] 11/06/2021 09:30:15
--- OUTSIDE RECORDS SUMMARY | 2025-07-14 16:00 | XMS_ITS | Clinical Summary ---
Author Organization [facility] Address [address] [place] [address] Care Team Providers Care Poker Room Manager Name Role Phone Unavailable Primary [...]
--- OUTSIDE RECORDS SUMMARY | 2025-07-14 16:01 | XMS_ITS | Continuity of Care Document ---
Author Organization [facility], [facility] Address [address] [address] Care Team Providers Care Corporate Human Resources Manager Name Role Phone IDALIA LEUNG Primary Care Provider FABIANA SHUBHAM Assurance Senior LAVERNE TRINH Assurance Senior ODALIS BELLO Certified Performance Technologist Assessment Encounter Date Assessment Date Assessment LastModified by Organization Details LastModified Time 06/14/2025 06/14/2025 Shubham is presenting for a [...] Not available Any 15 2025 10:00A M Shubham Pineda MD Not available Not available Not available Lab CBC w/ auto diff 2024 THIERRY [facility] (Centralized Electronic Ordering - All Locations), Patient Can Go To The Location Of Their Choice, [id number] 06/15/2025 08:07:33 CMP, serum or plasma 2024 THIERRY [facility] (Centralized Electronic Ordering - All Locations), Patient Can Go To The Location Of Their Choice, [id number] 06/15/2025 08:07:35 iron + TIBC + ferritin, serum 2024 THIERRY [facility] (Centralized Electronic Ordering - All Locations), Patient Can Go To The Location Of Their Choice, [id number] 06/15/2025 08:07:31 ferritin, serum or plasma 2024 [email or web address] [facility] (Centralized Electronic Ordering - All Locations), Patient Can Go To The Location Of Their Choice, [id number] 07/12/2025 13:17:54 vitamin D, 25-hydrox y, total, serum 2024 THIERRY [facility] (Centralized Electronic Ordering - All Locations), Patient Can Go To The Location Of Their Choice, [address] 06/15/2025 08:07:37 magnesium , serum or plasma 2024 THIERRY [facility] (Centralized Electronic Ordering - All Locations), Patient Can Go To The Location Of Their Choice, [id number] 06/15/2025 08:07:38 Referral None recorded. Procedures None recorded. Surgeries None recorded. Imaging electroca rdiogram 2024 [email or web address] In-Office Order, Internal Use Only DO Not Attach Compendium DO Not Attach Compendium, Do Not Delete/merge, [id number] 06/14/2025 11:28:04 Medication Orders None recorded. Patient TargetsNo targets recorded. Patient InstructionsNo instructions recorded. Reason for Referral None Reported. Results Created Date Observation Date Name Description Value Unit Range Abnormal Flag Note LastModifiedBy Organization Detail LastModifiedTime 06/14/2006/15/2025 FE+TI BC+FE R iron bind.cap.(TI BC) 295 ug/dL 250-45 0 normal Not Available [facility] ([facility]) [address] [place], [address], 06/15/2025 08:07:31 06/14/2006/15/2025 FE+TI BC+FE R UIBC 168 ug/dL 111-34 3 normal Not Available [facility] ([facility]) [address] [place], [address], 06/15/2025 08:07:31 06/14/2006/15/2025 FE+TI BC+FE R iron 127 ug/dL 38-169 normal Not Available [facility] ([facility]) [address] [place], [address], 06/15/2025 08:07:31 06/14/20 25 06/15/2025 FE+TI BC+FE R iron saturation 43 % 15-55 normal Not Available [facility] ([facility]) [address] [place], [address], 06/15/2025 08:07:31 06/14/2006/15/2025 FE+TI BC+FE R ferritin 112 NG/mL 30-400 normal Not Available [facility] ([facility]) [address] [place], [address], 06/15/2025 08:07:31 06/14/20 25 06/14/2025 CBC WITH DIFFE RENTI AL/PL ATELE T WBC 9.8 x10e3 /uL 3.4-10 .8 normal Not Available [facility] ([facility]) [address] [place], [address], 06/15/2025 08:07:33 06/14/20 25 06/14/2025 CBC WITH DIFFE RENTI AL/PL ATELE T RBC 4.89 x10e6 /uL 4.14-5 .80 normal Not Available [facility] ([facility]) [address] [place], [address], 06/15/2025 08:07:33 06/14/20 25 06/14/2025 CBC WITH DIFFE RENTI AL/PL ATELE T hemoglobin 15.1 g/dL 13.0-1 7.7 normal Not Available [facility] ([facility]) [address] [place], [address], 06/15/2025 08:07:33 06/14/20 25 06/14/2025 CBC WITH DIFFE RENTI AL/PL ATELE T hematocrit 44.2 % 37.5-5 1.0 normal Not Available [facility] ([facility]) [address] [place], [address], 06/15/2025 08:07:33 06/14/20 25 06/14/2025 CBC WITH DIFFE RENTI AL/PL ATELE T MCV 90 fL 79-97 normal Not Available [facility] ([facility]) [address] [place], [address], 06/15/2025 08:07:33 06/14/20 25 06/14/2025 CBC WITH DIFFE RENTI AL/PL ATELE T MCH 30.9 pg 26.6-3 3.0 normal Not Available [facility] ([facility]) [address] [place], [address], 06/15/2025 08:07:33 06/14/20 25 06/14/2025 CBC WITH DIFFE RENTI AL/PL ATELE T MCHC 34.2 g/dL 31.5-3 5.7 normal Not Available [facility] ([facility]) [address] [place], [address], 06/15/2025 08:07:33 06/14/2006/14/2025 CBC WITH DIFFE RENTI AL/PL ATELE T RDW 12.1 % 11.6-1 5.4 Not Available [facility] ([facility]) [address] [facility], [place], [address], 06/15/2025 08:07:33 06/14/2006/14/2025 CBC WITH DIFFE RENTI AL/PL ATELE T platelets 223 x10e3 /uL 150-45 0 normal Not Available [facility] ([facility]) [address] [facility], [place], [address], 06/15/2025 08:07:33 06/14/20 25 06/14/2025 CBC WITH DIFFE RENTI AL/PL ATELE T neutrophils 62 % not estab. normal Not Available [facility] ([facility]) [address] [facility], [place], [address], 06/15/2025 08:07:33 06/14/2006/14/2025 CBC WITH DIFFE RENTI AL/PL ATELE T lymphs 26 % not estab. normal Not Available [facility] ([facility]) [address] [facility], [place], [address], 06/15/2025 08:07:33 06/14/2006/14/2025 CBC WITH DIFFE RENTI AL/PL ATELE T monocytes 11 % not estab. normal Not Available [facility] ([facility]) [address] [facility], [place], [address], 06/15/2025 08:07:33 06/14/20 25 06/14/2025 CBC WITH DIFFE RENTI AL/PL ATELE T eos 1 % not estab. normal Not Available [facility] ([facility]) [address] [facility], [place], [address], 06/15/2025 08:07:33 06/14/20 25 06/14/2025 CBC WITH DIFFE RENTI AL/PL ATELE T basos 0 % not estab. normal Not Available [facility] ([facility]) [address] [place], [address], 06/15/2025 08:07:33 06/14/20 25 06/14/2025 CBC WITH DIFFE RENTI AL/PL ATELE T immature cells ROOM SERVER Not Available [facility] ([facility]) [address] [place], [address], 06/15/2025 08:07:33 06/14/20 25 06/14/2025 CBC WITH DIFFE RENTI AL/PL ATELE T neutrophils (absolute) 6.1 x10e3 /uL 1.4-7. 0 normal Not Available [facility] ([facility]) [address] [place], [address], 06/15/2025 08:07:33 06/14/20 25 06/14/2025 CBC WITH DIFFE RENTI AL/PL ATELE T lymphs (absolute) 2.5 x10e3 /uL 0.7-3. 1 normal Not Available [facility] ([facility]) [address] [place], [address], 06/15/2025 08:07:33 06/14/20 25 06/14/2025 CBC WITH DIFFE RENTI AL/PL ATELE T monocytes(ab solute) 1.0 x10e3 /uL 0.1-0. 9 above high normal Not Available [facility] ([facility]) [address] [place], [address], 06/15/2025 08:07:33 06/14/20 25 06/14/2025 CBC WITH DIFFE RENTI AL/PL ATELE T eos (absolute) 0.1 x10e3 /uL 0.0-0. 4 normal Not Available [facility] ([facility]) [address] [place], [address], 06/15/2025 08:07:33 06/14/20 25 06/14/2025 CBC WITH DIFFE RENTI AL/PL ATELE T baso (absolute) 0.0 x10e3 /uL 0.0-0. 2 normal Not Available [facility] ([facility]) [address] [facility], [place], [address], 06/15/2025 08:07:33 06/14/20 25 06/14/2025 CBC WITH DIFFE RENTI AL/PL ATELE T immature granulocytes 0 % not estab. Not Available [facility] ([facility]) [address] [facility], [place], [address], 06/15/2025 08:07:33 06/14/20 25 06/14/2025 CBC WITH DIFFE RENTI AL/PL ATELE T immature grans (abs) ROOM SERVER Not Available [facility] ([facility]) [address] [facility], [place], [address], 06/15/2025 08:07:33 06/14/20 25 06/14/2025 CBC WITH DIFFE RENTI AL/PL ATELE T NRBC ROOM SERVER Not Available [facility] ([facility]) [address] [facility], [place], [address], 06/15/2025 08:07:33 06/14/20 25 06/14/2025 CBC WITH DIFFE RENTI AL/PL ATELE T hematology comments: ROOM SERVER Not Available [facility] ([facility]) [address] [facility], [place], [address], 06/15/2025 08:07:33 06/14/20 25 06/14/2025 COMP. METAB OLIC PANEL (14) glucose 62 mg/dL 70-99 below low normal Not Available [facility] ([facility]) [address] [place], [address], 06/15/2025 08:07:35 06/14/20 25 06/14/2025 COMP. METAB OLIC PANEL (14) BUN 20 mg/dL 6-24 normal Not Available [facility] ([facility]) [address] [facility], [place], [address], 06/15/2025 08:07:35 06/14/20 25 06/14/2025 COMP. METAB OLIC PANEL (14) creatinine 0.99 mg/dL 0.76-1 .27 normal Not Available [facility] ([facility]) [address] [facility], [place], [address], 06/15/2025 08:07:35 06/14/20 25 06/14/2025 COMP. METAB OLIC PANEL (14) eGFR 93 mL/mi n/1.7 3 >59 normal Not Available [facility] ([facility]) [address] [facility], [place], [address], 06/15/2025 08:07:35 06/14/20 25 06/14/2025 COMP. METAB [...] at www.k doqi. org. Not Available [facility] ([facility]) [address] [facility], [place], [address], 06/15/2025 08:07:35 06/14/20 25 06/14/2025 COMP. METAB OLIC PANEL (14) BUN/creatini ne ratio 20 9-20 normal Not Available [facility] ([facility]) [address] [facility] [place], [address], 06/15/2025 08:07:35 06/14/20 25 06/14/2025 COMP. METAB OLIC PANEL (14) sodium 138 mmol/ L 134-14 4 normal Not Available [facility] ([facility]) [address] [facility] [place], [address], 06/15/2025 08:07:35 06/14/20 25 06/14/2025 COMP. METAB OLIC PANEL (14) potassium 3.7 mmol/ L 3.5-5. 2 normal Not Available [facility] ([facility]) [address] [facility], [address], 06/15/2025 08:07:35 06/14/20 25 06/14/2025 COMP. METAB OLIC PANEL (14) chloride 99 mmol/ L 96-106 normal Not Available [facility] ([facility]) [address] [place], [address], 06/15/2025 08:07:35 06/14/20 25 06/14/2025 COMP. METAB OLIC PANEL (14) carbon dioxide, total 28 mmol/ L 20-29 normal Not Available [facility] ([facility]) [address] [facility], [address], 06/15/2025 08:07:35 06/14/20 25 06/14/2025 COMP. METAB OLIC PANEL (14) calcium 9.9 mg/dL 8.7-10 .2 normal Not Available [facility] ([facility]) [address] [place], [address], 06/15/2025 08:07:35 06/14/20 25 06/14/2025 COMP. METAB OLIC PANEL (14) protein, total 6.7 g/dL 6.0-8. 5 normal Not Available [facility] ([facility]) [address] [place], [address], 06/15/2025 08:07:35 06/14/20 25 06/14/2025 COMP. METAB OLIC PANEL (14) albumin 4.4 g/dL 4.1-5. 1 normal Not Available [facility] ([facility]) [address] [place], [address], 06/15/2025 08:07:35 06/14/20 25 06/14/2025 COMP. METAB OLIC PANEL (14) globulin, total 2.3 g/dL 1.5-4. 5 Not Available [facility] ([facility]) [address] [place], [address], 06/15/2025 08:07:35 06/14/20 25 06/14/2025 COMP. METAB OLIC PANEL (14) bilirubin, total 0.5 mg/dL 0.0-1. 2 normal Not Available [facility] ([facility]) [address] [place], [address], 06/15/2025 08:07:35 06/14/20 25 06/14/2025 COMP. METAB OLIC PANEL (14) alkaline phosphatase 80 IU/L 47-123 normal Not Available [facility] ([facility]) [address] [place], [address], 06/15/2025 08:07:35 06/14/20 25 06/14/2025 COMP. METAB OLIC PANEL (14) AST (SGOT) 25 IU/L 0-40 normal Not Available [facility] ([facility]) [address] [place], [address], 06/15/2025 08:07:35 06/14/20 25 06/14/2025 COMP. METAB OLIC PANEL (14) ALT (SGPT) 25 IU/L 0-44 normal Not Available [facility] ([facility]) [address] [place], [address], 06/15/2025 08:07:35 06/14/20 25 06/15/2025 VITAM IN [...] 1. IOM (Inst itute of Medic ine). 2009. Kerria ry refer ence intnancy es for calci um and D. Jenny owen [place]: [facility] . 2. Reese ruiz MF, Charleen conley [place], Tae off-F errar i DENT, et al. Evalu ation , treat ment, and preve ntion of vitam in D defic iency : an Endoc rine Socie ty clini david pract ice guide line. JCEM. 2010; 96(7) :1911 -30. Not Available [facility] ([facility]) [address] [facility], [place], [address], 06/15/2025 08:07:37 06/14/20 25 06/14/2025 MAGNE SIUM magnesium 2.1 mg/dL 1.6-2. 3 normal Not Available [facility] ([facility]) [address] [facility], [place], [address], 06/15/2025 08:07:37 05/17/20 25 05/13/2025 elect rocar diogr am No observ ation record ed. [email or web address] Not Available 05/17 13:25:17 06/14/20 elect rocar diogr am No observ ation record ed. In-Office Order Internal Use Only DO Not Attach Compendium DO Not Attach Compendium, Do Not Delete/merge, [id number] 06/14/2025 10:44:40 06/15/20 25 06/14/2025 elect femi morenogr am No observ ation record ed. [email or web address] Not Available 06/16 13:24:09 Result Notes None recorded. Problems Name Problem SNOMED Code Status Onset Date Resolution Date Notes Provider Name and Address Organization Details Recorded Time Obstructiv e sleep apnea syndrome 43467658 Active on biPAP Cee Raygoza PA-C [address] [place] [address], [phone], [facility] 4 12:16:31 Mixed hyperlipid emia 000773474 Active 2023 Natasha aceves [facility] 4 15:20:19 Benign essential hypertensi on 0303244 Active 2023 Natasha aceves [facility] 4 15:20:19 Dyspnea 419157998 Active [address] [facility] 4 15:20:20 Chest pain 12964126 Active [address] [facility] 4 15:20:22 Chronic combined systolic and diastolic heart failure 904068287553 100 Active [address] [facility] 4 15:20:23 Type 1 diabetes mellitus 91525661 Active 2023 Cee Raygoza PA-C [address] [place] [address], [address], [facility] 4 12:15:11 Chronic obstructiv e pulmonary disease 71524607 Active 2023 Cee Raygoza PA-C [address] [place] [address], [phone], [facility] 4 12:16:46 Problem Notes None recorded. Procedures Surgical History Date Name Laterality Status Provider Name and Address Organization Details Recorded Time Hernia Repair completed Laura Valles [facility] 03/01/2024 16:37:06 Imaging Results None recorded. Procedure Notes None recorded. Medical Equipment None Reported. Allergies Allergen ID Allergen Name Allergen Category Reaction Reaction Severity Criticality Documentation Date Start Date Code Code System Note Provider Name and Address Organization Details Recorded Time 890396 Compazine medicatio n Not available Not available Not available 03/01/2024 92598 6 RxNorm sever e muscl e spasm Laura Encarnacion [facility] 4 16:29:57 249899 Imitrex medicatio n Not available Not available Not available 03/01/2024 12583 3 RxNorm Laura Encarnacion [facility] 4 16:30:08 887946 Motrin medicatio n Not available Not available Not available 03/01/202488974 8 RxNorm can' t take- harmf ul to my kidne kelly Encarnacion [facility] 4 16:30:51 135154 Non-stero idal anti-infl ammatory agent (substanc e) medicatio n other Not available Not available 03/01/2024 72994 5008 SNOMED Kortney Sevilla [facility] 4 12:49:07 091363 Toradol medicatio n Not available Not available Not available 03/01/2024 60049 RxNorm can' t take- harmf ul to my kidne kelly Encarnacion [facility] 4 16:31:19 656063 Wellbutri n medicatio n Not available Not available Not available 03/01/2024 34232 RxNorm suici daysi Laura Encarnacion [facility] 4 16:32:29 015123 codeine medicatio n itching Not available Not available 03/01/2024 2670 RxNorm Kortney Sevilla [facility] 4 12:49:07 805996 ibuprofen medicatio n other Not available Not available 03/03/2024 5640 RxNorm Kortney Sevilla [facility] 4 12:49:07 315907 POLLEN EXTRACTS environme nt,medica tion Not available Not available Not available 03/03/2024 24485 6 RxNorm Kortney Sevilla [facility] 4 12:49:07 613771 cat dander environme nt Not available Not available Not available 03/03/2024 Kortney Sevilla [facility] 4 12:49:07 732948 mold extract environme nt Not available Not available Not available 03/03/2024 83897 8 RxNorm Kortney Sevilla [facility] 4 12:49:07 602045 cigarette smoke environme nt Not available Not available Not available 03/03/2024 Kortneysavannah Sevilla [facility] 4 12:49:07 767201 hydralazi ne medicatio n dizziness Not available Not available 05/09/2025 5470 RxNorm Laura Encarnacion [facility] 5 10:42:26 Medications Name Sig Start Date [...] active Not Available Not Available Not Avai labelda ondansetr on 4 mg disintegr ating tablet [...] DateTime 06/14/2025 136/76 mm[Hg] Cee Raygoza PA-C [address] [place] [address], [phone] [place] [address] 06/14/2025 11:15:55 Date Recorded Body height Body mass index (BMI) Body weight Heart rate Systolic And Diastolic Provider Name and Address Organization Details Last Updated DateTime 06/14/2025 182.88 cm 32.2 kg/m2 009243.7 9 g 66 /min 159/85 mm[Hg] Geri Ortega [facility] 06/14/2025 10:54:33 Social History Question Answer Notes LastModified by Organizat ion Details LastModified Time Tobacco Smoking Status [facility] 12:49:23 Do You Have An Advance Directive? No [email or web address] Information not available 03/03/2024 Are You Blind Or Do You Have Difficulty Seeing? No [email or web address] Information not available 03/03/2024 Is Blood Transfusion Acceptable In An Emergency? Yes [email or web address] Information not available 03/03/2024 What Is Your Level Of Caffeine Consumption? Occasional [email or web address] Information not available 03/03/2024 Are You Deaf Or Do You Have Serious Difficulty Hearing? No [email or web address] Information not available 03/03/2024 What Type Of Diet Are You Following? SPECIFIC [email or web address] Information not available 03/03/2024 Which Of Your Hands Is Dominant? Left Information not available 03/03/2024 What Was The Date Of Your Most Recent Tobacco Screening? 06/14/2025 Information not available 06/14/2025 Do You Have Any Pets? Yes Information not available 03/03/2024 What Is Your Relationship Status? Single [email or web address] Information not available 03/03/2024 Has Tobacco Cessation Counseling Been Provided? No Information not available 11/05/2024 Sex: Unknown Functional Status Question Answer Note LastModified by Organizat ion Details LastModified Time Do you use any illicit or recreational drugs? No Information not available 10/19/2024 Do you or have you ever used any other forms of tobacco or nicotine? No Information not available 03/03/2024 What is your level of alcohol consumption? None Information not available 03/03/2024 Are you currently employed? No Information not available 03/03/2024 Are you able to care for yourself independently? No [email or web address] Information not available 03/03/2024 What is your exercise level? Occasional Information not available 03/03/2024 Mental Status Question Answer Note LastModified by Organization D etails LastModified Time Do you feel stressed (tense, restless, nervous, or anxious, or unable to sleep at night)? [id number] Information not available 11/24/2024 Family History Relationship Description Onset Age of this Age Resolved Age Notes LastModified by Organization Details LastModified Time Mother Depressive disorder [email or web address] Not available 2023 12:49:12 Unspecified Relation Malignant neoplasm of colon [email or web address] Not available 2023 12:49:12 Unspecified Relation Hyperlipidem ia [email or web address] Not available 2023 12:49:12 Maternal Grandmother Myocardial infarction [email or web address] Not available 03/03 12:49:12 Maternal Grandmother Family history of malignant neoplasm [email or web address] Not available 2023 12:49:12 Maternal Grandmother Hypertensive disorder Not available 2023 12:49:12 Maternal Grandfather Myocardial infarction [email or web address] Not available 03/03 12:49:12 Maternal Grandfather Cerebrovascu lar accident [email or web address] Not available 05/2024 12:49:12 Maternal Grandfather Diabetes mellitus [email or web address] Not available 2023 12:49:12 Father Depressive disorder [email or web address] Not available 2023 12:49:12 Father Diabetes mellitus [email or web address] Not available 2023 12:49:12 Medical History Condition [...] ICD10 Code Diagnosis IMO Codes Diagnosis Note [id number] Cee Raygoza PA-C [facility] [address] [facility] [address] [address] 06/14/2025 10:44:18 06/14/2025 11:25:33 Benign essential hypertension 2974801 I10 Mixed hyperlipidemia 267 092810 E78.2 Chronic ob structive pulmonary disease 50352254 J44.9 Type 1 [place]es mellitus 28058139 E10.9 Dilated cardiomyopathy 056170601 I42.0 16761 Fatigue 57743961 R53.83 23838511 Health Concerns Section Related Observation LastModified by Organization Detai ls LastModified Time None Recorded Concern Status LastModified by Organization Details LastModified Time None Recorded Payers Encounter Date Sequence Insurance Name Policy Number Policy Rodriguez Covered Member ID Rodriguez Member ID Guarantor Name 06/14/2025 1 [place]ICARE B-[place]: [employer] Shubham Pappas [id number] Shubham Pappas 06/14/2025 2 [place] Shubham Pappas [id number] Shubham Pappas Notes Date Note Type Note Provider Name and Address Organization Details Recorded Time 06/14/2025 text/html ROS as noted in the [...] 03/02/24, Echo 11/09/24, Monitor 11/27/24, Lipid 12/07/24 BOGDAN Tomlinson-[address], [address], [facility]. 06/14/2025 11:47:55
--- OUTSIDE RECORDS SUMMARY | 2025-07-14 16:01 | XMS_ITS | Clinical Summary ---
Author Organization [facility] Address [address] [place] [address] Care Team Providers Care Content Strategist Name Role Phone Unavailable Primary Care Provider [...]
== END 2025-07-14 11:21 | disposition home or self-care (01) ==
LOC: HO.HSM 10:41
PROVIDERS: PCP Internal Medicine; Referring Provider Internal Medicine; Visit Provider Psychiatry & Neurology Neurology
DX: E11.40 Type 2 diabetes mellitus with diabetic neuropathy, unspecified (principal)
CPT/HCPCS: 99213

== ENCOUNTER → 2025-07-14 10:40 | Outpatient (BNVA) | payer MEDICARE, MEDICAID, SELFPAY | PROVIDERS: PCP Internal Medicine; Referring Provider Internal Medicine; Visit Provider Psychiatry & Neurology Neurology | DX: E11.40 Type 2 diabetes mellitus with diabetic neuropathy, unspecified (principal); M89.8X7 Other specified disorders of bone, ankle and foot; Z79.1 Long term (current) use of non-steroidal anti-inflammatories (NSAID) | CPT/HCPCS: 99212 ==